=== PATIENT | female | born 1960 | race Caucasian/White ===

== ENCOUNTER → 2017-04-06 07:30 | Outpatient (CLI) | payer MEDICARE, SELFPAY ==
[2017-04-06 07:37] VITALS: BP 150/86; PULSE 73; RESP 18; TEMP 36.8; O2SAT 98; BMI 27.2
--- NOTE | 2017-04-06 10:15 | NURSING ---
DOSE 1 OF 2 OF MAG SULFATE INFUSED, TOLERATING WELL, PT LEAVING UNIT TO EAT LUNCH, WILL RETURN AT NOON FOR 2ND DOSE
[2017-04-06 11:49] VITALS: BP 143/72; PULSE 82; RESP 18; TEMP 36.5; O2SAT 97
== END ==
PROVIDERS: Family Provider Internal Medicine; PCP Internal Medicine; Visit Provider Internal Medicine
DX: E87.8 Other disorders of electrolyte and fluid balance, not elsewhere classified (principal); E11.9 Type 2 diabetes mellitus without complications; K21.9 Gastro-esophageal reflux disease without esophagitis; F41.8 Other specified anxiety disorders
CPT/HCPCS: 96365 ×2; 96366 ×2; J7050; A4216

== ENCOUNTER → 2017-04-08 12:24 | Outpatient (CLI) | payer MEDICARE, SELFPAY ==
[2017-04-08 16:40] LABS: Magnesium 2.1 mg/dL (1.6-2.6)
== END ==
PROVIDERS: Family Provider Internal Medicine; PCP Internal Medicine; Visit Provider Internal Medicine
DX: E87.8 Other disorders of electrolyte and fluid balance, not elsewhere classified (principal); E11.9 Type 2 diabetes mellitus without complications; K21.9 Gastro-esophageal reflux disease without esophagitis; F41.8 Other specified anxiety disorders
CPT/HCPCS: 36415; 83735

== ENCOUNTER → 2017-04-21 14:36 | Outpatient (CLI) | payer MEDICARE, SELFPAY ==
[2017-04-21 14:45] LABS: Bacteria 0 SEEN /hpf (None Seen); Mucous, Urine 0 SEEN /hpf (<or=2+); Red Blood Cells-Urine 0 SEEN /hpf (0-5)
[2017-04-21 15:09] LABS: Hematocrit 50.1 % (37-47); Hemoglobin 16.9 g/dl (12.0-15.0); Mean Corp Hgb Conc 33.7 g/gl (32-36); Mean Corpuscular Hgb 31.5 pg (27.0-32.0); Mean Corpuscular Volume 93.5 fL (81-99); Mean Platelet Vol. 11.6 fl (6.2-12.0); Platelet Count 264 K/mm3 (150-450); RBC Distribution Width CV 12.9 % (11.6-14.6); RBC Distribution Width SD 44.1 fl (35.1-43.9); Red Blood Count 5.36 M/mm3 (4.2-5.4); White Blood Count 14.2 K/mm3 (4.4-11.0)
[2017-04-21 15:10] LABS: Scan Indicated on CBC? Y/N NO
[2017-04-21 15:19] LABS: Color, Urine Yellow (Yellow); Glucose, Dipstick Normal (Normal); Ketone-Dipstick Negative (Negative); Leukocyte Esterase-Dipstick 25 /ul (Negative); Nitrite-Dipstick Negative (Negative); Occult Blood-Urine Negative /ul (Negative); Protein-Dipstick Negative (Negative); Specific Gravity, Urine 1.015 (1.002-1.030); Urine Bilirubin Dipstick Negative (Negative); Urine Clarity Sl. Cloudy (Clear); Urine Urobilinogen Normal (Normal)
[2017-04-21 15:25] LABS: International Normalized Ratio 1.1; Prothrombin Time (Protime)PT. 13.8 SECONDS (11.7-14.9)
[2017-04-21 15:33] LABS: Anion Gap 7 (5-15); BUN 22 mg/dL (7-18); BUN/Creat Ratio 21.2 RATIO (10-20); Calcium,Total 9.2 mg/dL (8.5-10.1); Chloride 102 mmol/L (98-107); Creatinine, Serum 1.04 mg/dL (0.55-1.02); EST Glomerular Filtration Rate 58 mL/min (>60); Est Glom Filt Rate - Afr Amer 71 mL/min (>60); Glucose 120 mg/dL (74-106); Potassium 4.9 mmol/L (3.5-5.1); Sodium Level 135 mmol/L (136-145)
[2017-04-21 16:31] LABS: Squamous Epithelial Cells - UA 10-25 SEEN /hpf (5-10); White Blood Cells 0-5 SEEN /hpf (0-5)
[2017-04-21 21:43] LABS: Magnesium 1.7 mg/dL (1.6-2.6)
== END ==
PROVIDERS: Internal Medicine Cardiovascular Disease; Family Provider Internal Medicine; PCP Internal Medicine; Visit Provider Internal Medicine
DX: I50.20 Unspecified systolic (congestive) heart failure (principal); Z95.810 Presence of automatic (implantable) cardiac defibrillator; I42.8 Other cardiomyopathies
CPT/HCPCS: 36415; 80048; 81001; 83735; 85027; 85610

== ENCOUNTER → 2017-04-23 09:18 | Day surgery (SDC) | payer MEDICARE, SELFPAY ==
--- NOTE | 2017-04-21 15:55 | RAD_ITS ---
STUDY: X-RAY CHEST REASON FOR EXAM: Female, 56 years old. Pacemaker generator change. TECHNIQUE: Frontal and lateral views of the chest. COMPARISON: 09/30/2016. FINDINGS: The lungs are clear and expanded. There is no demonstrated pleural abnormality. Normal size heart. Pacemaker leads terminate in the right atrium, right ventricle and coronary sinus. Normal mediastinum and lele. Normal visualized pulmonary arteries. Normal visualized aortic arch and descending thoracic aorta. Normal visualized thoracic spine. Normal visualized ribs, clavicles, and shoulders. There is no demonstrated abnormality of the visualized soft tissue structures of the upper abdomen. RAD/Chest PA and Lateral IMPRESSION: No evidence for acute chest disease. Electronically Signed: Tyron Tena MD at 23:46 EST , Service support ,
[2017-04-22 13:19] VITALS: BMI 26.8
--- NOTE | 2017-04-23 12:31 | OP.PCM_ITS ---
Operative Report Date of Procedure: 04/23/17 Preoperative diagnosis is device at end of life for normal battery depletion. Postoperative diagnosis same as above. After informed consent and IV antibiotics the patient was brought to the [facility] and the skin over the device was prepped and draped in the usual sterile manner. Intermittent boluses of Versed, fentanyl and propofol were used for sedation and analgesia as well as 1% subcutaneous lidocaine. An incision was made over the pre-existing device. Using blunt and Bovie dissection the pocket was opened and the device was removed. Careful attention was paid not to injure the pre-existing leads. The leads were removed from the device header and they were interrogated. There is normal lead function. Hemostasis was obtained. The pocket was flushed with antibiotic solution. The sponge and needle count were correct. The new device was brought to the field. The leads were placed in the appropriate position in the header and secured by the set screw. The leads and the device were then placed in the pocket. The device is a BiV AV ICD with a unipolar LV lead. The pocket was closed with a deep layer of running 2-0 Vicryl, a superficial layer of running 4-0 Vicryl, skin with Steri-Strips which were covered with a rolled 4 x 4 and Tegaderm. Patient left the room with the device programmed to proper parameters and there were no complications. All lead parameters were tested and found to be functionally normal. Lead and device serial and model numbers are available in the chart documents provided by the device company sales representative womens health procedure summary.
== END ==
PROVIDERS: Family Provider Internal Medicine; PCP Internal Medicine; Visit Provider Internal Medicine Cardiovascular Disease
DX: Z45.02 Encounter for adjustment and management of automatic implantable cardiac defibrillator (principal); I42.0 Dilated cardiomyopathy; I11.0 Hypertensive heart disease with heart failure; I50.20 Unspecified systolic (congestive) heart failure; E11.9 Type 2 diabetes mellitus without complications; R53.83 Other fatigue; J44.9 Chronic obstructive pulmonary disease, unspecified; K21.9 Gastro-esophageal reflux disease without esophagitis; F17.201 Nicotine dependence, unspecified, in remission; Z85.89 Personal history of malignant neoplasm of other organs and systems; Z82.49 Family history of ischemic heart disease and other diseases of the circulatory system; Z00.6 Encounter for examination for normal comparison and control in clinical research program
CPT/HCPCS: 33264; 71046; 93641; 99152; 99153; J7040; J7050

== ENCOUNTER → 2017-06-12 11:47 | Outpatient (CLI) | payer MEDICARE, SELFPAY ==
[2017-06-12 12:37] LABS: Anion Gap 5 (5-15); BUN 24 mg/dL (7-18); BUN/Creat Ratio 20.5 RATIO (10-20); Calcium,Total 8.9 mg/dL (8.5-10.1); Chloride 104 mmol/L (98-107); Creatinine, Serum 1.17 mg/dL (0.55-1.02); EST Glomerular Filtration Rate 51 mL/min (>60); Est Glom Filt Rate - Afr Amer 62 mL/min (>60); Glucose 111 mg/dL (74-106); Magnesium 1.9 mg/dL (1.6-2.6); Potassium 4.2 mmol/L (3.5-5.1); Sodium Level 140 mmol/L (136-145)
== END ==
PROVIDERS: Family Provider Internal Medicine; PCP Internal Medicine; Visit Provider Internal Medicine
DX: E87.8 Other disorders of electrolyte and fluid balance, not elsewhere classified (principal)
CPT/HCPCS: 36415; 80048; 83735

== ENCOUNTER → 2017-07-17 12:16 | Outpatient (CLI) | payer MEDICARE, SELFPAY ==
[2017-07-17 13:24] LABS: ALB/GLOB Ratio 0.8 RATIO (0.9-2.4); AST(SGOT) 64 U/L (15-37); Alanine Aminotransfer ALT/SGPT 62 U/L (13-56); Albumin, Serum 3.4 g/dL (3.2-5.0); Alkaline Phosphatase 167 U/L (45-117); Anion Gap 8 (5-15); BUN 12 mg/dL (7-18); BUN/Creat Ratio 13.2 RATIO (10-20); Calcium,Total 6.9 mg/dL (8.5-10.1); Chloride 102 mmol/L (98-107); Creatinine, Serum 0.91 mg/dL (0.55-1.02); EST Glomerular Filtration Rate 68 mL/min (>60); Est Glom Filt Rate - Afr Amer 82 mL/min (>60); Globulin 4.2 g/dL (2.2-4.2); Glucose 101 mg/dL (74-106); Magnesium 0.7 mg/dL (1.6-2.6); Protein, Total 7.6 g/dL (6.4-8.2); Sodium Level 140 mmol/L (136-145)
== END ==
PROVIDERS: Family Provider Internal Medicine; PCP Internal Medicine; Visit Provider Internal Medicine
DX: E87.8 Other disorders of electrolyte and fluid balance, not elsewhere classified (principal)
CPT/HCPCS: 36415; 80053; 83735

== ENCOUNTER → 2017-07-21 07:20 | Outpatient (CLI) | payer MEDICARE, SELFPAY ==
[2017-07-21 07:42] VITALS: BP 130/76; PULSE 70; RESP 18; TEMP 36.6; O2SAT 99; BMI 26.8
[2017-07-21] MEDS: Magnesium Sulfate 2 GM IV IV ×2 (08:15→14:10)
[2017-07-21 11:01] VITALS: BP 108/70; PULSE 57; RESP 16; O2SAT 97
== END ==
PROVIDERS: Family Provider Internal Medicine; PCP Internal Medicine; Visit Provider Internal Medicine
DX: E87.8 Other disorders of electrolyte and fluid balance, not elsewhere classified (principal); E11.9 Type 2 diabetes mellitus without complications; K21.9 Gastro-esophageal reflux disease without esophagitis; F41.8 Other specified anxiety disorders
CPT/HCPCS: 96365 ×2; 96366 ×2; J7050; A4216

== ENCOUNTER → 2017-07-22 10:48 | Outpatient (CLI) | payer MEDICARE, SELFPAY ==
[2017-07-22 12:02] LABS: Magnesium 2.4 mg/dL (1.6-2.6)
== END ==
PROVIDERS: Family Provider Internal Medicine; PCP Internal Medicine; Visit Provider Internal Medicine
DX: E87.8 Other disorders of electrolyte and fluid balance, not elsewhere classified (principal); E11.9 Type 2 diabetes mellitus without complications; K21.9 Gastro-esophageal reflux disease without esophagitis; F41.8 Other specified anxiety disorders
CPT/HCPCS: 36415; 83735

== ENCOUNTER → 2017-07-29 11:46 | Outpatient (CLI) | payer MEDICARE, SELFPAY ==
[2017-07-29 13:28] LABS: Creatinine, Urine (random) < 13.00 mg/dL (NO RANGE EST.)
[2017-07-29 13:35] LABS: Magnesium 1.8 mg/dL (1.6-2.6)
[2017-07-29 14:26] LABS: Osmolality, Serum 289 mOsm/KG (275-295); Osmolality, Urine 352 mOsm/KG
== END ==
PROVIDERS: Family Provider Internal Medicine; PCP Internal Medicine; Visit Provider Internal Medicine Nephrology
DX: E83.42 Hypomagnesemia (principal)
CPT/HCPCS: 36415; 82570; 83735; 83930; 83935

== ENCOUNTER → 2017-09-11 13:15 | Outpatient (CLI) | payer MEDICARE, SELFPAY ==
[2017-09-11 14:19] LABS: Magnesium 0.9 mg/dL (1.6-2.6)
== END ==
PROVIDERS: Family Provider Internal Medicine; PCP Internal Medicine; Visit Provider Nurse Practitioner Family
DX: E87.8 Other disorders of electrolyte and fluid balance, not elsewhere classified (principal)
CPT/HCPCS: 36415; 83735

== ENCOUNTER → 2017-09-15 07:24 | Outpatient (CLI) | payer MEDICARE, SELFPAY ==
[2017-09-15 07:46] VITALS: BP 147/79; PULSE 66; RESP 16; TEMP 36; O2SAT 100; BMI 25.3
[2017-09-15 13:39] VITALS: BP 123/66; PULSE 64; RESP 18; O2SAT 98
== END ==
PROVIDERS: Family Provider Internal Medicine; PCP Internal Medicine; Visit Provider Internal Medicine
DX: E87.8 Other disorders of electrolyte and fluid balance, not elsewhere classified (principal); E11.9 Type 2 diabetes mellitus without complications; K21.9 Gastro-esophageal reflux disease without esophagitis; F41.8 Other specified anxiety disorders
CPT/HCPCS: 96365 ×2; 96366 ×2; J7050; A4216; J3475

== ENCOUNTER → 2017-09-16 09:39 | Outpatient (CLI) | payer MEDICARE, SELFPAY ==
[2017-09-16 10:06] LABS: Magnesium 2.5 mg/dL (1.6-2.6)
== END ==
PROVIDERS: Family Provider Internal Medicine; PCP Internal Medicine; Visit Provider Internal Medicine
DX: E87.8 Other disorders of electrolyte and fluid balance, not elsewhere classified (principal); E11.9 Type 2 diabetes mellitus without complications; K21.9 Gastro-esophageal reflux disease without esophagitis; F41.8 Other specified anxiety disorders
CPT/HCPCS: 36415; 83735

== ENCOUNTER → 2017-09-18 11:09 | Outpatient (CLI) | payer MEDICARE, SELFPAY ==
[2017-09-18 12:51] LABS: Vitamin D,25 Hydroxy 13.1 ng/mL (29.95-100.01)
[2017-09-22 07:55] LABS: Vitamin D 1,25-Dihydroxy 46.5 pg/mL (19.9-79.3)
== END ==
PROVIDERS: Family Provider Internal Medicine; PCP Internal Medicine; Visit Provider Physician Assistant Medical
DX: E87.8 Other disorders of electrolyte and fluid balance, not elsewhere classified (principal); E83.42 Hypomagnesemia
CPT/HCPCS: 36415; 82306; 82652

== ENCOUNTER → 2017-10-20 09:01 | Outpatient (CLI) | payer MEDICARE, SELFPAY ==
[2017-10-20 10:34] LABS: Anion Gap 11 (5-15); BUN 15 mg/dL (7-18); BUN/Creat Ratio 14.6 RATIO (10-20); Calcium,Total 9.6 mg/dL (8.5-10.1); Chloride 98 mmol/L (98-107); Creatinine, Serum 1.03 mg/dL (0.55-1.02); EST Glomerular Filtration Rate 59 mL/min (>60); Est Glom Filt Rate - Afr Amer 71 mL/min (>60); Glucose 118 mg/dL (74-106); Potassium 4.4 mmol/L (3.5-5.1); Sodium Level 138 mmol/L (136-145)
== END ==
PROVIDERS: Family Provider Internal Medicine; PCP Internal Medicine; Visit Provider Physician Assistant Medical
DX: E87.8 Other disorders of electrolyte and fluid balance, not elsewhere classified (principal); I42.8 Other cardiomyopathies; I10 Essential (primary) hypertension
CPT/HCPCS: 36415; 80048

== ENCOUNTER → 2017-12-09 12:16 | Outpatient (CLI) | payer MEDICARE, SELFPAY ==
[2017-12-09 13:09] LABS: Anion Gap 5 (5-15); BUN 13 mg/dL (7-18); BUN/Creat Ratio 12.3 RATIO (10-20); Calcium,Total 9.5 mg/dL (8.5-10.1); Chloride 98 mmol/L (98-107); Creatinine, Serum 1.06 mg/dL (0.55-1.02); EST Glomerular Filtration Rate 57 mL/min (>60); Est Glom Filt Rate - Afr Amer 69 mL/min (>60); Glucose 122 mg/dL (74-106); Magnesium 1.5 mg/dL (1.6-2.6); Potassium 4.3 mmol/L (3.5-5.1); Sodium Level 134 mmol/L (136-145)
== END ==
PROVIDERS: Family Provider Internal Medicine; PCP Internal Medicine; Referring Provider Internal Medicine; Visit Provider Internal Medicine
DX: E83.42 Hypomagnesemia (principal)
CPT/HCPCS: 36415; 80048; 83735

== ENCOUNTER → 2018-01-07 12:05 | Outpatient (CLI) | payer MEDICARE, SELFPAY ==
[2018-01-07 13:13] LABS: Anion Gap 4 (5-15); BUN 16 mg/dL (7-18); BUN/Creat Ratio 15.5 RATIO (10-20); Calcium,Total 8.9 mg/dL (8.5-10.1); Chloride 101 mmol/L (98-107); Creatinine, Serum 1.03 mg/dL (0.55-1.02); EST Glomerular Filtration Rate 59 mL/min (>60); Est Glom Filt Rate - Afr Amer 71 mL/min (>60); Glucose 116 mg/dL (74-106); Magnesium 1.7 mg/dL (1.6-2.6); Potassium 4.5 mmol/L (3.5-5.1); Sodium Level 134 mmol/L (136-145)
== END ==
PROVIDERS: Family Provider Internal Medicine; PCP Internal Medicine; Referring Provider Internal Medicine Nephrology; Visit Provider Internal Medicine Nephrology
DX: E83.42 Hypomagnesemia (principal)
CPT/HCPCS: 36415; 80048; 82570; 83735

== ENCOUNTER → 2018-02-08 11:46 | Outpatient (CLI) | payer MEDICARE, SELFPAY ==
[2017-11-24 14:22] VITALS: BMI 25.2
[2018-02-08 12:53] LABS: Magnesium 1.8 mg/dL (1.6-2.6)
--- OUTSIDE RECORDS SUMMARY | 2018-04-03 18:07 | XMS RPT_ITS ---
:1960 Author Organization OHIP Support Name Relationship Address Phone D Unavailable Unavailable Unavailable GREG ADAM Unavailable [address] + [place] [address] D Unavailable Unavailable Unavailable LYN GARZAT Unavailable [address] + [place] [address] D Unavailable Unavailable Unavailable LYN GARZAT Unavailable [address] + [place] [address] D Unavailable Unavailable Unavailable ADAM GARZA Unavailable [address] + [place] [address] D Unavailable Unavailable Unavailable LYN GARZAT Unavailable [address] + [place] [address] D Unavailable Unavailable Unavailable LYN GARZAT Unavailable [address] + [place] [address] D Unavailable Unavailable Unavailable LYN GARZAT Unavailable [address] + [place] [address] D Unavailable Unavailable Unavailable LYN GARZAT Unavailable [address] + [place] [address] D Unavailable Unavailable Unavailable LYN GARZAT Unavailable [address] + [place] [address] D Unavailable Unavailable Unavailable LYN GARZAT Unavailable [address] + [place] [address] D Unavailable Unavailable Unavailable LYN GARZAT Unavailable [address] + [place] [address] D Unavailable Unavailable Unavailable LYN GARZAT Unavailable [address] + [place] [address] D Unavailable Unavailable Unavailable ADAM GARZA Unavailable [address] + [place] [address] D Unavailable Unavailable Unavailable LYN GARZAT Unavailable [address] + [place] [address] D Unavailable Unavailable Unavailable LYN GRAZAT Unavailable [address] + [place] [address] D Unavailable Unavailable Unavailable LYN GARZAT Unavailable [address] + [place] [address] D Unavailable Unavailable Unavailable LYN GARZAT Unavailable [address] + [place] [address] D Unavailable Unavailable Unavailable LYN GARZAT Unavailable [address] + [place] [address] D Unavailable Unavailable Unavailable LYN GARZAT Unavailable [address] + [place] [address] D Unavailable Unavailable Unavailable ADAM GARZA Unavailable [address] + [place] [address] D Unavailable Unavailable Unavailable ADAM GARZA Unavailable [address] + [place] [address] D Unavailable Unavailable Unavailable ADAM GARZA Unavailable [address] + [place] [address] D Unavailable Unavailable Unavailable ADAM GARZA Unavailable [address] + [place] [address] D Unavailable Unavailable Unavailable ADAM GARZA Unavailable [address] + [place] [address] D Unavailable Unavailable Unavailable ADAM GARZA Unavailable [address] + [place] [address] D Unavailable Unavailable Unavailable LYN GARZAT Unavailable [address] + [place] [address] D Unavailable Unavailable Unavailable ADAM GARZA Unavailable [address] + [place] [address] D Unavailable Unavailable Unavailable ADAM GARZA Unavailable [address] + [place] [address] D Unavailable Unavailable Unavailable ADAM GARZA Unavailable [address] + [place] [address] D Unavailable Unavailable Unavailable ADAM GARZA Unavailable [address] + [place] [address] D Unavailable Unavailable Unavailable ADAM GARZA Unavailable [address] + [place] [address] D Unavailable Unavailable Unavailable LYN GARZAT Unavailable [address] + [place] [address] D Unavailable Unavailable Unavailable ADAM GARZA Unavailable [address] + [place] [address] D Unavailable Unavailable Unavailable ADAM GARZA Unavailable [address] + [place] [address] D Unavailable Unavailable Unavailable ADAM GARZA Unavailable [address] + [place] [address] D Unavailable Unavailable Unavailable ADAM GARZA Unavailable [address] + [place] [address] D Unavailable Unavailable Unavailable ADAM GARZA Unavailable [address] + [place] [address] D Unavailable Unavailable Unavailable ADAM GARZA Unavailable [address] + [place] [address] D Unavailable Unavailable Unavailable ADAM GARZA Unavailable [address] + [place] [address] D Unavailable Unavailable Unavailable ADAM GARZA Unavailable [address] + [place] [address] D Unavailable Unavailable Unavailable ADAM GARZA Unavailable [address] + [place] [address] D Unavailable Unavailable Unavailable ADAM GARZA Unavailable [address] + [place] [address] D Unavailable Unavailable Unavailable GARZA ADAM Unavailable [address] + [place] [address] D Unavailable Unavailable Unavailable GARZA, ADAM Unavailable [address] + [place] [address] D Unavailable Unavailable Unavailable GARZA ADAM Unavailable [address] + [place] [address] D Unavailable Unavailable Unavailable GARZA, ADAM Unavailable NA + [place], [place] Care Team Providers Name Role Phone NUHA QUESADA () Attending Unavailable Oleghe, Efewongbe Attending Unavailable Malys, Sendy Referring Unavailable Malys, Sendy Primary Care Unavailable Oleghe, Efewongbe Attending Unavailable Oleghe, Efewongbe Referring Unavailable Oleghe, Efewongbe Primary Care Unavailable Oleghe, Efewongbe Attending Unavailable Oleghe, Efewongbe Referring Unavailable Oleghe, Efewongbe Primary Care Unavailable Aliyah Aguilar Attending Unavailable Malys, Sendy Referring Unavailable Oleghe, Efewongbe Primary Care Unavailable Nurse, Standard Attending Unavailable Malys, Sendy Referring Unavailable Oleghe, Efewongbe Primary Care Unavailable Oleghe, Efewongbe Attending Unavailable Oleghe, Efewongbe Primary Care Unavailable Oleghe, Efewongbe Referring Unavailable Oleghe, Efewongbe Attending Unavailable Oleghe, Efewongbe Primary Care Unavailable Benedicto, [place] Attending Unavailable Benedicto, [place] Referring Unavailable Oleghe, Efewongbe Primary Care Unavailable Leatha Branch Attending Unavailable Oleghe, Efewongbe Attending Unavailable Oleghe, Efewongbe Referring Unavailable Oleghe, Efewongbe Primary Care Unavailable Rudolph [place] Attending Unavailable Oleghe, Efewongbe Referring Unavailable Oleghe, Efewongbe Primary Care Unavailable Aliyah Aguilar Attending Unavailable Oleghe, Efewongbe Referring Unavailable Oleghe, Efewongbe Primary Care Unavailable Nakul Abdalla Attending Unavailable Benedicto, [place] Referring Unavailable Oleghe, Efewongbe Primary Care Unavailable Benedicto, [place] Consulting Unavailable Aliyah Aguilar Attending Unavailable Aliyah Aguilar Attending Unavailable Oleghe, Efewongbe Referring Unavailable Kristen Robles Attending Unavailable Aliyah Aguilar Attending Unavailable Oleghe, Efewongbe Referring Unavailable Oleghe, Efewongbe Primary Care Unavailable Oleghe, Efewongbe Attending Unavailable Oleghe, Efewongbe Referring Unavailable Stewart Diane Attending Unavailable Oleghe, Efewongbe Referring Unavailable Oleghe, Efewongbe Primary Care Unavailable Oleghe, Efewongbe Attending Unavailable Oleghe, Efewongbe Referring Unavailable Oleghe, Efewongbe Attending Unavailable Oleghe, Efewongbe Referring Unavailable Oleghe, Efewongbe Primary Care Unavailable Oleghe, Efewongbe Attending Unavailable Oleghe, Efewongbe Referring Unavailable Oleghe, Efewongbe Primary Care Unavailable Oleghe, Efewongbe Attending Unavailable Oleghe, Efewongbe Referring Unavailable Oleghe, Efewongbe Primary Care Unavailable Soledad Castillo Attending Unavailable Marcelino Brown Attending Unavailable Oleghe, Efewongbe Referring Unavailable Oleghe, Efewongbe Attending Unavailable Oleghe, Efewongbe Referring Unavailable Oleghe, Efewongbe Primary Care Unavailable Oleghe, Efewongbe Attending Unavailable Oleghe, Efewongbe Referring Unavailable Oleghe, Efewongbe Primary Care Unavailable Oleghe, Efewongbe Attending Unavailable Oleghe, Efewongbe Referring Unavailable Oleghe, Efewongbe Primary Care Unavailable Valeria Cruz Attending Unavailable Oleghe, Efewongbe Primary Care Unavailable Oleghe, Efewongbe Attending Unavailable Oleghe, Efewongbe Referring Unavailable Rudolph [place] Attending Unavailable Aliyah Aguilar Attending Unavailable Oleghe, Efewongbe Referring Unavailable Oleghe, Efewongbe Primary Care Unavailable Ignacio Zacarias HOMOGENIZER OPERATOR-C Attending Unavailable Ignacio Zacarias HOMOGENIZER OPERATOR-C Referring Unavailable Oleghe, Efewongbe Primary Care Unavailable Oleghe, Efewongbe Attending Unavailable Oleghe, Efewongbe Referring Unavailable Oleghe, Efewongbe Primary Care Unavailable Oleghe, Efewongbe Attending Unavailable Oleghe, Efewongbe Primary Care Unavailable Lawanda Robless Attending Unavailable Nilda Pino Attending Unavailable Nilda Pino Referring Unavailable Oleghe, Efewongbe Primary Care Unavailable Oleghe, Efewongbe Attending Unavailable Oleghe, Efewongbe Referring Unavailable Nilda Pino Attending Unavailable Nilda Pino Referring Unavailable Oleghe, Efewongbe Primary Care Unavailable Soledad Castillo Attending Unavailable Aliayh Aguilar Attending Unavailable Oleghe, Efewongbe Referring Unavailable Oleghe, Efewongbe Primary Care Unavailable Rudolph [place] Attending Unavailable Oleghe, Efewongbe Referring Unavailable Oleghe, Efewongbe Primary Care Unavailable Oleghe, Efewongbe Attending Unavailable Oleghe, Efewongbe Referring Unavailable Oleghe, Efewongbe Primary Care Unavailable Oleghe, Efewongbe Attending Unavailable Oleghe, Efewongbe Referring Unavailable Oleghe, Efewongbe Primary Care Unavailable Valeria Cruz Attending Unavailable Oleghe, Efewongbe Primary Care Unavailable Valeria Cruz Referring Unavailable Oleghe, Efewongbe Consulting Unavailable Oleghe, Efewongbe Attending Unavailable Oleghe, Efewongbe Referring Unavailable Oleghe, Efewongbe Primary Care Unavailable PROBLEMS PROBLEMS DATE TYPE CONDITION / CODE ATTENDING STATUS SOURCE 01/18/2018 Unknown E83.42 - Valeria Cruz Active [facility] Hypomagnesemia / Community E83.42(ICD-10) Hospital Repository 12/08/2017 Active Unknown / Ayden QUESADA [place] UN(Unknown) NUHA [facility] GAGE) [place] Repository 11/24/2017 Unknown E87.8 - Other Oleghe, Active [place] disorders of [facility] electrolyte and fluid Hospital balance, not Repository elsewhere classified / E87.8(ICD-10) 04/29/2017 Unknown Z95.810 - Presence of Jeff, Aliyah Active [facility] automatic Community (implantable) cardiac Hospital defibrillator / Repository Z95.810(ICD-10) 04/29/2017 Unknown R42 - Dizziness and Jeff, Aliyah Active [place] giddiness / Community R42(ICD-10) Hospital Repository 04/29/2017 Unknown R06.02 - Shortness of Jeff, Aliyah Active [facility] breath / Community R06.02(ICD-10) Hospital Repository 04/29/2017 Unknown I42.0 - Dilated Aliyah Aguilar Active [place] cardiomyopathy / Community I42.0(ICD-10) Hospital Repository 04/23/2017 Unknown I50.20 - Unspecified Nakul Abdalla Active [place] systolic (congestive) [facility] heart failure / Hospital I50.20(ICD-10) Repository 04/23/2017 Unknown I42.8 - Other Mr, Nakul Active [facility] cardiomyopathies / Community I42.8(ICD-10) Hospital Repository 04/21/2017 Unknown I10 - Essential Rudolph [place] Active [place] (primary) [facility] hypertension / Hospital I10(ICD-10) Repository 03/26/2017 Unknown F41.8 - Other Oleghe, Active [place] specified anxiety [facility] disorders / Hospital F41.8(ICD-10) Repository 03/26/2017 Unknown E11.9 - Type 2 Oleghe, Active [facility] diabetes mellitus [facility] without complications Hospital / E11.9(ICD-10) Repository PROCEDURES PROCEDURES No Procedure Records FoundRESULTS RESULTS MAGNESIUM Collected: 02/08/2018 Status: F Source: [place] 12:04 PM [facility] REPOSITORY Order Comment: Comments: Monthly standing order Comments: Monthly standing order TYPE CODE TESTS RESULT OUT OF RANGE REFERENCE UNITS LAB L501.5200 1.6-2.6 mg/dL Normal MG 1.8 Performed By: #### L501.5200 #### [facility] [address] [place], [address] CREATININE, URINE Collected: 01/07/2018 Status: F Source: [place] (RANDOM) 12:12 PM [facility] REPOSITORY Order Comment: PLEASE COPY DR Wesley EVANS ON MAGNESIUM BLOOD. TYPE CODE TESTS RESULT OUT OF RANGE REFERENCE UNITS LAB L501.1200 NO RANGE EST. mg/dL Normal UR CREAT 69.20 Performed By: #### L501.1200 #### [facility] [address] [place], [address] BASIC METABOLIC Collected: 01/07/2018 Status: F Source: [place] PROFILE (BMP) 12:12 PM [facility] REPOSITORY Order Comment: PLEASE COPY DR Wesley EVANS ON MAGNESIUM BLOOD. Comments: magnesium random urine [id number] urine ref TYPE CODE TESTS RESULT OUT OF RANGE REFERENCE UNITS LAB L501.0100 74-106 mg/dL High GLU 116 Result Comment: Fasting Glucose result from 100 to 125 mg/dL suggests IMPAIRED HOMEOSTASIS per A.D.A. criteria. Please note revised GLUCOSE reference range effective 2017. LAB L501.1000 7-18 mg/dL Normal BUN 16 LAB L501.1100 0.55-1.02 mg/dL High CREAT,SERUM 1.03 Result Comment: The validity of the calculated GFR AND GFRAA in patients over 70 years has not been determined. Clinical correlation is essential. LAB L501.1110 >60 mL/min Low EST GFR 59 Result Comment: Non- GFR Calc LAB L501.1115 >60 mL/min Normal EST GFR - AA 71 Result Comment: GFR Calc LAB L501.1300 10-20 RATIO Normal BUN/CRE 15.5 LAB L501.2200 8.5-10.1 mg/dL CA Normal 8.9 LAB L501.5300 136-145 mmol/L Low NA 134 LAB L501.5600 3.5-5.1 mmol/L K Normal 4.5 LAB L501.5900 98-107 mmol/L CL Normal 101 LAB L501.6100 21.0-32.0 mmol/L Normal CO2 29.0 LAB L501.6200 5-15 Low GAP 4 Performed By: #### L500.2500, L501.5200 #### [facility] [address] [place], [place], [id number] MAGNESIUM Collected: 01/07/2018 Status: F Source: [place] 12:12 PM [facility] REPOSITORY Order Comment: PLEASE COPY DR Wesley EVANS ON MAGNESIUM BLOOD. Comments: magnesium random urine [id number] urine ref TYPE CODE TESTS RESULT OUT OF RANGE REFERENCE UNITS LAB L501.5200 1.6-2.6 mg/dL Normal MG 1.7 Performed By: #### L500.2500, L501.5200 #### [facility] [address] [place], [address] MISCELLANEOUS LAB Collected: 01/07/2018 Status: F Source: [place] PROCEDURE 12:12 PM [facility] REPOSITORY Order Comment: PLEASE COPY DR Wesley EVANS ON MAGNESIUM BLOOD. Comments: magnesium random urine [id number] urine ref Test(s) Ordered: magnesium random urine [id number] urine ref TYPE CODE TESTS RESULT OUT OF RANGE REFERENCE UNITS LAB L801.1541 Normal [facility] TEST Result Comment: TEST RESULT UNITS REFERENCE INTERVAL Magnesium, U <1.4 mg/dL Not Estab. TESTING PERFORMED AT [facility]. ORIGINAL REPORT ON FILE IN LAB CONTAINS ADDITIONAL TEST SITE INFORMATION. Performed By: #### L801.1541 #### [facility] [address] [place], [address] BASIC METABOLIC Collected: 12/09/2017 Status: F Source: [place] PROFILE ([facility]) 12:31 PM [facility] REPOSITORY TYPE CODE TESTS RESULT OUT OF RANGE REFERENCE UNITS LAB L501.0100 74-106 mg/dL High GLU 122 Result Comment: Fasting Glucose result from 100 to 125 mg/dL suggests IMPAIRED HOMEOSTASIS per A.D.A. criteria. Please note revised GLUCOSE reference range effective 2017. LAB L501.1000 7-18 mg/dL Normal BUN 13 LAB L501.1100 0.55-1.02 mg/dL High CREAT,SERUM 1.06 Result Comment: The validity of the calculated GFR AND GFRAA in patients over 70 years has not been determined. Clinical correlation is essential. LAB L501.1110 >60 mL/min Low EST GFR 57 Result Comment: Non- GFR Calc LAB L501.1115 >60 mL/min Normal EST GFR - AA 69 Result Comment: GFR Calc LAB L501.1300 10-20 RATIO Normal BUN/CRE 12.3 LAB L501.2200 8.5-10.1 mg/dL CA Normal 9.5 LAB L501.5300 136-145 mmol/L Low NA 134 LAB L501.5600 3.5-5.1 mmol/L K Normal 4.3 LAB L501.5900 98-107 mmol/L CL Normal 98 LAB L501.6100 21.0-32.0 mmol/L Normal CO2 31.0 LAB L501.6200 5-15 Normal GAP 5 Performed By: #### L500.2500, L501.5200 #### [facility] [address] [place], [address] MAGNESIUM Collected: 12/09/2017 Status: F Source: [place] 12:31 PM [facility] REPOSITORY TYPE CODE TESTS RESULT OUT OF RANGE REFERENCE UNITS LAB L501.5200 1.6-2.6 mg/dL Low MG 1.5 Performed By: #### L500.2500, L501.5200 #### [facility] [address] [place], [address] CNOV Observed: 12/08/2017 Status: COMPLETED Source: [place] 2:00 PM [facility] REPOSITORY Office Visit (FAMPWS) LISA GARZA ([id number]) 1960 F Date Time Provider Department 12/08/17 2:00 PM NUHA QUESADA) FAMPWS During your visit today, we recorded the following information about you: Pulse Respiration Blood pressure Weight 80/minute 18/minute 122/68 72.1 kg Nuha Quesada MD 12/09/2017 4:30 PM Signed Chief Complaint Patient presents with: Establish Care: physical HPI Lisa Garza is a 57 year old female who presents here today for establish care visit. Previously seeing Dr. Evans and last OV was about 2 weeks ago for bronchitis which she states she was given Z pack for and prednisone. Finished z pack which helped with symptoms. Did not take the prednisone because it causes her hives. Patient follows up with Dr. Diane for history of cardiomyopathy with pacemaker and defibrillator. Last OV was back Taking medications as prescribed. 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 Not sure when this was placed or why. Denies alcohol use at this time. Has history of anxiety which she is taking Ativan for on a BID basis. Last filled by Dr. Evans on 11/10 and has about 10 tablets left with her today. Not on SSRI or SNRI. States that he marine transport professionals did not want her medications changed because of her cardiomyopathy and would like this refilled terminal manager. Discussed with patient that I do not fill benzos for anxiety fpc and recommended she see psychiatrist which she states she cannot afford. States she will return to seeing Dr. Evans since he was filling this for her previously. Refusing immunizations today. Allergic to influenza vaccine. Past medical history, appointments, medications, allergies reviewed. Previous Medical History PAST MEDICAL HISTORY Diagnosis Date - Alcoholic psychosis NEC - Allergic urticaria - Anxiety disorder in conditions classified elsewhere - Cardiac defibrillator in place - Cardiomyopathy in other diseases classified elsewhere DILATED, Seeing Dr. Diane - Hyperthyroidism 03/2011 Low TSH with normal T4 and T3, repeat normal - Hypomagnesemia - Malignant neoplasm of vulva, unspecified site 1996 s/p resection x4, melanoma - Pacemaker 2008 - Tobacco use - Vitamin D deficiency Previous Surgical History PAST SURGICAL HISTORY Procedure Laterality Date - COLONOS W/REM POLYP SNARE 11/07/05 Polyp proximal sigmoid - COLONOSCOPY due every 3 years - EGD W/O BRSH SPECIMEN W/BX 11/07/05 Hiatal hernia, Gastritis - LAP CHOLECYSTECT/CHOLANGIOGRAPHY 11/12/05 - PAST SURGICAL HISTORY OF 09/19/2008 placement AICD , [facility] - PAST SURGICAL HISTORY OF dental extraction, 16 teeth removed - MA ANESTH,CARDIAC CATH W/CORON ART AND VENT 11/29/02 - MA ANESTH,REMOVAL OF VULVA 2000 DUE TO MELANOMA - REMOVAL GALLBLADDER 2005 Cholecystectomy - VAGINAL HYSTERECTOMY 04/09/2006 Hysterectomy, vaginal Family History FAMILY HISTORY Problem Relation Age of Onset - Diabetes Mother - Hypertension Father - Stroke Father - Cancer Father lymph - Skin Cancer Maternal Aunt melanoma - Hypertension Maternal Aunt Patient Allergies ALLERGIES Allergen Reactions - Bactrim [Sulfametho* Itching - Flu Shot [Other] Intolerance sick for weeks - Celebrex [Celecoxib] GI Upset - Celexa [Citalopram * Mental Status Change - Cheese (See Vegetab* Hives - Ciprofloxacin Hcl Itching After script Nov 2010 - Codeine Hives - Darvocet-N 100 [Pro* Hives - Diazepam Hives - Doxycycline Intolerance HEART RACING - Flexeril [Cyclobenz* GI Upset gi upset, bloating - Ivp/Ct Dye [Other] Hives - Meloxicam Intolerance Abdominal pain, bloating and hartburn. - Methocarbamol Rash - Nabumetone Rash - Naprosyn [Naproxen] GI Upset - Omeprazole GI Upset - Penicillins Hives - Pramipexole Intolerance - Ropinirole Rash - Seasonings [Other] - Trimox [Amoxicillin] Hives, Itching - Tylenol [Acetaminop* Hives - Vicodin Tuss [[place]* Mental Status Change - Vicodin [Hydrocodon* GI Upset - Zantac [Ranitidine * Hives Current Medications Current Outpatient Prescriptions on File Prior to Visit: LORazepam (ATIVAN) 1 mg tablet Take 1 tablet by mouth three times daily as needed for Anxiety. nystatin cream Apply a quarter size amount to the affected area 3 times a day for 2 weeks lisinopril 20 mg tablet Take 1 tablet by mouth twice daily. Estradiol (ESTRACE) 0.5 mg tablet Take 1 tablet by mouth once daily. albuterol HFA (PROAIR HFA) 90 mcg/actuation inhaler Inhale 2 Puffs as instructed every 4 hours as needed for Wheezing/Shortness of Breath. metoprolol tartrate, short acting, 50 mg tablet Take 1 tablet by mouth twice daily. furosemide 20 mg tablet Take 1 tablet by mouth once daily. cetirizine (ZYRTEC) 10 mg tablet Take 1 tablet by mouth once daily. albuterol 2.5 mg /3 mL (0.083 %) nebulizer solution Use via nebulizer. four times daily as needed No current facility-administered medications on file prior to visit. 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 Social History Main Topics Smoking status: Current Every Day Smoker Packs/day: 0.50 Years: 40.00 Types: Cigarettes Smokeless tobacco: Never Used Alcohol use: No Drug use: No Sexual activity: Not Currently Partners with: Male control/protection: Surgical Comment: Vaginal Hysterectomy 2006 Social History Narrative disability Review of Symptoms REVIEW OF SYSTEMS GENERAL: No weight loss, malaise or fevers RESPIRATORY: Negative for cough, hemoptysis, wheezing, COPD, dyspnea or shortness of breath CARDIOVASCULAR: Negative for chest pain, leg swelling, hypertension, CHF or palpitations GI: No nausea, vomiting, or diarrhea SKIN: Negative for lesions, rash, and itching EXAM: BP 122/68 (BP Site: Right Arm, BP Position: Sitting, BP Cuff Size: Regular Adult) Pulse 80 Resp 18 Wt 72.1 kg (159 lb) LMP 03/23/2006 SpO2 97% BMI 26.66 kg/m? General Appearance: Well appearing, alert, in no acute distress, well-hydrated, well nourished.. Skin: Skin color, texture, turgor normal, no suspicious rashes or lesions. Lungs: Lungs clear to auscultation. No wheezing, rhonchi, rales. Heart: RRR without murmur, gallop, or rubs. No ectopy. Abdomen: Normal abdominal exam, Abdomen soft, non-tender. Bowel sounds normal. No masses, organomegaly. Extremities: No deformities, edema, skin discoloration, clubbing or cyanosis. Good capillary refill. . Health Maintenance List ANNUAL PCP TEAM CHRONIC DISEASE VISIT due on 11/30/1979 ONE PNEUMOVAX PRIOR TO AGE 65 due on 1980 HEPATITIS C SCREENING due on 2005 FECAL OCCULT BLOOD due on 03/03/2014 MAMMOGRAM due on 09/13/2014 PAP EVERY 3 YEARS due on 08/04/2016 DIABETES SCREEN due on 05/18/2017 LIPID SCREEN due on 11/11/2017 DTAP,TDAP,TD(3 - Td) due on 12/15/2021 ASSESSMENT/PLAN: 1. Anxiety - ICD9: 300.00, ICD10: F41.9 (primary diagnosis) Patient will follow up with Dr. Evans for refills of her ativan. - LORAZEPAM 1 MG TABLET 2. Chronic obstructive pulmonary disease, unspecified COPD type (HCC) - ICD9: 496, ICD10: J44.9 Continue current regimen, follow up with PCP. 3. AICD (automatic cardioverter/defibrillator) present - ICD9: V45.02, ICD10: Z95.810 Asymptomatic. Continue current regimen. Follow up with cardiology. 4. Cardiomyopathy, unspecified type (HCC) - ICD9: 425.4, ICD10: I42.9 Asymptomatic. Continue current regimen. Follow up with cardiology. 5. Tobacco use disorder - ICD9: 305.1, ICD10: F17.200 - Cessation encouraged. - Physiologic and physical aspects of tobacco addiction as well as strategies for quitting were discussed. - Counseling was given focusing on the harmful effects of this addiction especially given the patient's medical condition(s) which will be worsened because of the chemicals in tobacco. I spent 40 minutes in the visit, with more than 50% of the total [id number] time of the visit in counseling / coordination of care. Nuha Quesada MD Referring Provider: SELF [200] Allergies As of Date: 12/08/2017 Noted Allergy Reaction BACTRIM (SULFAMETHOXAZOLE) 08/17/2010 9 - Itching flu shot [Other] 10/28/2004 5 - Intolerance Comments: sick for weeks CELEBREX (CELECOXIB) 10/28/2004 8 - GI Upset CELEXA (CITALOPRAM HYDROBROMIDE) 11/02/2007 1 - Mental Status Change CHEESE (SEE VEGETABLE GUM) 10/28/2004 4 - Hives CIPROFLOXACIN HCL 2010 9 - Itching Comments: After script Nov 2010 CODEINE 02/02/2006 4 - Hives DARVOCET-N 100 (PROPOXYPHENE N-AC*10/28/2004 4 - Hives DIAZEPAM 10/28/2004 4 - Hives DOXYCYCLINE 10/28/2004 5 - Intolerance Comments: HEART RACING FLEXERIL (CYCLOBENZAPRINE HCL) 2010 8 - GI Upset Comments: gi upset, bloating IVP/CT dye [Other] 09/11/2008 4 - Hives MELOXICAM 2010 5 - Intolerance Comments: Abdominal pain, bloating and hartburn. METHOCARBAMOL 08/10/2012 2 - Rash NABUMETONE 08/26/2012 2 - Rash NAPROSYN (NAPROXEN) 10/28/2004 8 - GI Upset OMEPRAZOLE 03/01/2013 8 - GI Upset PENICILLINS 10/28/2004 4 - Hives PRAMIPEXOLE 06/11/2012 5 - Intolerance ROPINIROLE 05/11/2012 2 - Rash seasonings [Other] 10/28/2004 TRIMOX (AMOXICILLIN) 10/28/2004 4 - Hives 9 - Itching TYLENOL (ACETAMINOPHEN) 10/28/2004 4 - Hives VICODIN TUSS (HYDROCODONE-GUAIFEN*10/28/2004 1 - Mental Status Change VICODIN (HYDROCODONE-ACETAMINOPHE*10/28/2004 8 - GI Upset ZANTAC (RANITIDINE HCL) 03/10/2013 4 - Hives Date Reviewed: 12/08/2017 Reviewed by: Heaven Roberto - Fully Assessed Reason for Visit: Establish Care [42] Cmt: physical Primary Visit Diagnosis:Anxiety [F41.9] Other Visit Diagnoses:Chronic obstructive pulmonary disease, unspecified COPD type (HCC) [J44.9] AICD (automatic cardioverter/defibrillator) present [Z95.810] Cardiomyopathy, unspecified type (HCC) [I42.9] Tobacco use disorder [F17.200] Order(s):LORazepam (ATIVAN) 1 mg tabletTake 1 tablet by mouth twice daily as needed for up to 30 days.Disp: Rfl: Prescriptions as of 12/08/2017 Sig: POTASSIUM CHLORIDE ER 20 MEQ * Take by mouth twice daily wit* MAGNESIUM OXIDE 400 MG CAPSULE Take by mouth twice daily. CALCIUM CARBONATE 600 MG CALC* Take 600 mg by mouth twice da* CHOLECALCIFEROL (VITAMIN D3) * Take by mouth once each week. LORAZEPAM 1 MG TABLET Take 1 tablet by mouth twice * LISINOPRIL 20 MG TABLET Take 1 tablet by mouth twice * ESTRADIOL 0.5 MG TABLET Take 1 tablet by mouth once d* ALBUTEROL SULFATE HFA 90 MCG/* Inhale 2 Puffs as instructed * METOPROLOL TARTRATE 50 MG TAB* Take 1 tablet by mouth twice * FUROSEMIDE 20 MG TABLET Take 1 tablet by mouth once d* CETIRIZINE 10 MG TABLET Take 1 tablet by mouth once d* ALBUTEROL SULFATE 2.5 MG/3 ML* Use via nebulizer. four time* Problem List As Of Date 12/08/2017 Noted Resolved PRIM CARDIOMYOPATHY NEC [I42.8] INVALID FOR* ESOPHAGEAL REFLUX [K21.9] INVALID FOR* PAIN ABDOMEN( Periumbilical) [R10.33] INVALID FOR*11/07/2010 CHOLELITH W CHOLECYS NEC [K80.10] INVALID FOR* HIATAL HERNIA [K44.9] INVALID FOR* POLYP COLON [D12.6] INVALID FOR* Abdominal pain, left lower quadrant [R10.32] INVALID FOR*11/07/2010 RHINITIS CHRONIC [J31.0] INVALID FOR* CHRONIC AIRWAY OBSTRUCTION NEC [J44.9] INVALID FOR* TOBACCO USE DISORDER [F17.200] INVALID FOR* CARCINOMA IN SITU VULVA [D07.1] INVALID FOR* AICD (automatic cardioverter/defibrillator) pre*INVALID FOR* More... Grave's disease INVALID FOR* Cervical lymphadenopathy [R59.0] INVALID FOR*05/14/2011 Neck pain [M54.2] INVALID FOR* Anxiety [F41.9] INVALID FOR* Glucose intolerance (impaired glucose tolerance*INVALID FOR* RLQ abdominal pain [R10.31] INVALID FOR* Symptomatic menopausal or female climacteric st*INVALID FOR* Prescriptions ordered this encounter Disp Refills Start End LORAZEPAM 1 MG TABLET 12/08/2017 01/07/2018 Class: Med Update Route: ORAL Sig: Take 1 tablet by mouth twice daily as needed for up to 30 days. Medications Discontinued During This Encounter LORazepam (ATIVAN) 1 mg tablet 60 t* 0 12/26/2013 12/08/2017 Class: Call Rx Route: ORAL Sig: Take 1 tablet by mouth three times daily as needed for Anxiety. Disc: Reason for discontinue is not on file. nystatin cream 1 Tu* 0 10/31/2013 12/08/2017 Sig: Apply a quarter size amount to the affected area 3 times a day for 2 weeks Disc: Reason for discontinue is not on file. Encounter Status:Closed by NUHA QUESADA MD on 12/09/17 PROGRESS Observed: 12/08/2017 Status: COMPLETED Source: [place] 1:59 PM [facility] REPOSITORY HNO ID: [id number] Author: Nuha Harris) [place] Service: (none) Author Type: Physician Type: Progress Notes Filed: 12/09/2017 4:30 PM Note Text: Chief Complaint Patient presents with: Establish Care: physical HPI Lisa Garza is a 57 year old female who presents here today for establish care visit. Previously seeing Dr. Evans and last OV was about 2 weeks ago for bronchitis which she states she was given Z pack for and prednisone. Finished z pack which helped with symptoms. Did not take the prednisone because it causes her hives. Patient follows up with Dr. Diane for history of cardiomyopathy with pacemaker and defibrillator. Last OV was back Taking medications as prescribed. 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 Not sure when this was placed or why. Denies alcohol use at this time. Has history of anxiety which she is taking Ativan for on a BID basis. Last filled by Dr. Evans on 11/10 and has about 10 tablets left with her today. Not on SSRI or SNRI. States that he marine transport professionals did not want her medications changed because of her cardiomyopathy and would like this refilled terminal manager. Discussed with patient that I do not fill benzos for anxiety fpc and recommended she see psychiatrist which she states she cannot afford. States she will return to seeing Dr. Evans since he was filling this for her previously. Refusing immunizations today. Allergic to influenza vaccine. Past medical history, appointments, medications, allergies reviewed. Previous Medical History PAST MEDICAL HISTORY Diagnosis Date - Alcoholic psychosis NEC - Allergic urticaria - Anxiety disorder in conditions classified elsewhere - Cardiac defibrillator in place - Cardiomyopathy in other diseases classified elsewhere DILATED, Seeing Dr. Diane - Hyperthyroidism 03/2011 Low TSH with normal T4 and T3, repeat normal - Hypomagnesemia - Malignant neoplasm of vulva, unspecified site 1996 s/p resection x4, melanoma - Pacemaker 2008 - Tobacco use - Vitamin D deficiency Previous Surgical History PAST SURGICAL HISTORY Procedure Laterality Date - COLONOS W/REM POLYP SNARE 11/07/05 Polyp proximal sigmoid - COLONOSCOPY due every 3 years - EGD W/O BRSH SPECIMEN W/BX 11/07/05 Hiatal hernia, Gastritis - LAP CHOLECYSTECT/CHOLANGIOGRAPHY 11/12/05 - PAST SURGICAL HISTORY OF 09/19/2008 placement AICD , [facility] - PAST SURGICAL HISTORY OF dental extraction, 16 teeth removed - MA ANESTH,CARDIAC CATH W/CORON ART AND VENT 11/29/02 - MA ANESTH,REMOVAL OF VULVA 2000 DUE TO MELANOMA - REMOVAL GALLBLADDER 2006 Cholecystectomy - VAGINAL HYSTERECTOMY 04/09/2006 Hysterectomy, vaginal Family History FAMILY HISTORY Problem Relation Age of Onset - Diabetes Mother - Hypertension Father - Stroke Father - Cancer Father lymph - Skin Cancer Maternal Aunt melanoma - Hypertension Maternal Aunt Patient Allergies ALLERGIES Allergen Reactions - Bactrim [Sulfametho* Itching - Flu Shot [Other] Intolerance sick for weeks - Celebrex [Celecoxib] GI Upset - Celexa [Citalopram * Mental Status Change - Cheese (See Vegetab* Hives - Ciprofloxacin Hcl Itching After script Nov 2010 - Codeine Hives - Darvocet-N 100 [Pro* Hives - Diazepam Hives - Doxycycline Intolerance HEART RACING - Flexeril [Cyclobenz* GI Upset gi upset, bloating - Ivp/Ct Dye [Other] Hives - Meloxicam Intolerance Abdominal pain, bloating and hartburn. - Methocarbamol Rash - Nabumetone Rash - Naprosyn [Naproxen] GI Upset - Omeprazole GI Upset - Penicillins Hives - Pramipexole Intolerance - Ropinirole Rash - Seasonings [Other] - Trimox [Amoxicillin] Hives, Itching - Tylenol [Acetaminop* Hives - Vicodin Tuss [[place]* Mental Status Change - Vicodin [Hydrocodon* GI Upset - Zantac [Ranitidine * Hives Current Medications Current Outpatient Prescriptions on File Prior to Visit: LORazepam (ATIVAN) 1 mg tablet Take 1 tablet by mouth three times daily as needed for Anxiety. nystatin cream Apply a quarter size amount to the affected area 3 times a day for 2 weeks lisinopril 20 mg tablet Take 1 tablet by mouth twice daily. Estradiol (ESTRACE) 0.5 mg tablet Take 1 tablet by mouth once daily. albuterol HFA (PROAIR HFA) 90 mcg/actuation inhaler Inhale 2 Puffs as instructed every 4 hours as needed for Wheezing/Shortness of Breath. metoprolol tartrate, short acting, 50 mg tablet Take 1 tablet by mouth twice daily. furosemide 20 mg tablet Take 1 tablet by mouth once daily. cetirizine (ZYRTEC) 10 mg tablet Take 1 tablet by mouth once daily. albuterol 2.5 mg /3 mL (0.083 %) nebulizer solution Use via nebulizer. four times daily as needed No current facility-administered medications on file prior to visit. 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 Social History Main Topics Smoking status: Current Every Day Smoker Packs/day: 0.50 Years: 40.00 Types: Cigarettes Smokeless tobacco: Never Used Alcohol use: No Drug use: No Sexual activity: Not Currently Partners with: Male control/protection: Surgical Comment: Vaginal Hysterectomy 2007 Social History Narrative disability Review of Symptoms REVIEW OF SYSTEMS GENERAL: No weight loss, malaise or fevers RESPIRATORY: Negative for cough, hemoptysis, wheezing, COPD, dyspnea or shortness of breath CARDIOVASCULAR: Negative for chest pain, leg swelling, hypertension, CHF or palpitations GI: No nausea, vomiting, or diarrhea SKIN: Negative for lesions, rash, and itching EXAM: BP 122/68 (BP Site: Right Arm, BP Position: Sitting, BP Cuff Size: Regular Adult) Pulse 80 Resp 18 Wt 72.1 kg (159 lb) LMP 03/23/2006 SpO2 97% BMI 26.66 kg/m? General Appearance: Well appearing, alert, in no acute distress, well-hydrated, well nourished.. Skin: Skin color, texture, turgor normal, no suspicious rashes or lesions. Lungs: Lungs clear to auscultation. No wheezing, rhonchi, rales. Heart: RRR without murmur, gallop, or rubs. No ectopy. Abdomen: Normal abdominal exam, Abdomen soft, non-tender. Bowel sounds normal. No masses, organomegaly. Extremities: No deformities, edema, skin discoloration, clubbing or cyanosis. Good capillary refill. . Health Maintenance List ANNUAL PCP TEAM CHRONIC DISEASE VISIT due on 11/30/1979 ONE PNEUMOVAX PRIOR TO AGE 66 due on 1980 HEPATITIS C SCREENING due on 2005 FECAL OCCULT BLOOD due on 03/03/2014 MAMMOGRAM due on 09/13/2014 PAP EVERY 3 YEARS due on 08/04/2016 DIABETES SCREEN due on 05/18/2017 LIPID SCREEN due on 11/11/2017 DTAP,TDAP,TD(3 - Td) due on 12/15/2021 ASSESSMENT/PLAN: 1. Anxiety - ICD9: 300.00, ICD10: F41.9 (primary diagnosis) Patient will follow up with Dr. Evans for refills of her ativan. - LORAZEPAM 1 MG TABLET 2. Chronic obstructive pulmonary disease, unspecified COPD type (HCC) - ICD9: 496, ICD10: J44.9 Continue current regimen, follow up with PCP. 3. AICD (automatic cardioverter/defibrillator) present - ICD9: V45.02, ICD10: Z95.810 Asymptomatic. Continue current regimen. Follow up with cardiology. 4. Cardiomyopathy, unspecified type (HCC) - ICD9: 425.4, ICD10: I42.9 Asymptomatic. Continue current regimen. Follow up with cardiology. 5. Tobacco use disorder - ICD9: 305.1, ICD10: F17.200 - Cessation encouraged. - Physiologic and physical aspects of tobacco addiction as well as strategies for quitting were discussed. - Counseling was given focusing on the harmful effects of this addiction especially given the patient's medical condition(s) which will be worsened because of the chemicals in tobacco. I spent 40 minutes in the visit, with more than 50% of the total [id number]-ud-tsgp time of the visit in counseling / coordination of care. Nuha Quesada MD INTERNAL MEDICINE Observed: 11/24/2017 Status: F Source: [place] OFFICE VISIT 4:56 PM [facility] Internal Medicine [address] [place] [address] [place] [address] OFFICE VISIT Date of Service: 11/24/17 MR#: [id number] Acct: [id number] Name: LISA GARZA Rep #: [id number] : 1960 Provider: Yosi Evans MD Age/Sex: 56/F Location: [facility] Status: Signed Intake Vital Signs11/24/17 Height 5 ft 6 in 11/24/17 Weight: 156 lb 11/24/17 Body Mass Index (BMI) 25.2 11/24/17 Blood Pressure 116/70 11/24/17 Blood Pressure Location Rt brachial 11/24/17 Blood Pressure Position Sitting Intake Visit Reasons: POSS BRONCHITIS Chief Complaint: cough Is patient in pain?: No Allergies acetaminophen [From Tylenol] Allergy (Verified 11/20/17 10:44) Hives amoxicillin [Amoxicillin] Allergy (Verified 11/20/17 10:44) Hives amoxicillin trihydrate [From Trimox] Allergy (Verified 11/20/17 10:44) Hives codeine Allergy (Verified 11/20/17 10:44) Hives diazepam Allergy (Verified 11/20/17 10:44) Hives methocarbamol Allergy (Verified 11/20/17 10:44) Rash nabumetone Allergy (Verified 11/20/17 10:44) Rash Penicillins Allergy (Verified 11/20/17 10:44) Hives ranitidine HCl [From Zantac] Allergy (Verified 11/20/17 10:44) Hives ropinirole Allergy (Verified 11/20/17 10:44) Rash celecoxib [From Celebrex] Adverse Reaction (Verified 11/20/17 10:44) Nausea/Vom/Diarrhea ciprofloxacin Adverse Reaction (Verified 11/20/17 10:44) Itching citalopram hydrobromide [From Celexa] Adverse Reaction (Verified 11/20/17 10:44) Other cyclobenzaprine HCl [From Flexeril] Adverse Reaction (Verified 11/20/17 10:44) Nausea doxycycline Adverse Reaction (Verified 11/20/17 10:44) Other hydrocodone bitartrate [From Vicodin] Adverse Reaction (Verified 11/20/17 10:44) Nausea meloxicam Adverse Reaction (Verified 11/20/17 10:44) Other naproxen [From Naprosyn] Adverse Reaction (Verified 11/20/17 10:44) Nausea omeprazole Adverse Reaction (Verified 11/20/17 10:44) Nausea pramipexole Adverse Reaction (Verified 11/20/17 10:44) Other Medications Estradiol [Estrace] 0.5 mg PO DAILY 06/01/14 [History Confirmed 11/20/17] Furosemide [Lasix] 20 mg PO DAILY 06/01/14 [History Confirmed 11/20/17] albuterol sulfate 2.5 mg/3 mL (0.083 %) solution for nebulization 2.5 mg INHALATION Q6H PRN #180 ml 04/08/17 [Rx Confirmed 11/20/17] lorazepam 1 mg tablet 1 mg PO BID PRN #60 tab 07/13/17 [Rx Confirmed 11/20/17] omeprazole 20 mg capsule,delayed release 20 mg PO QDAY #90 cap 07/16/17 [Rx Confirmed 11/20/17] lisinopril 20 mg tablet 20 mg PO BID #180 tab 08/04/17 [Rx Confirmed 11/20/17] metoprolol tartrate 50 mg tablet 50 mg PO BID #180 tab 08/04/17 [Rx Confirmed 11/20/17] cholecalciferol (vitamin D3) 50,000 unit capsule 50,000 unit PO QWEEK #4 cap 09/18/17 [Rx Confirmed 11/20/17] calcium carbonate 600 mg calcium (1,500 mg) tablet 600 mg PO BID #60 tab 10/07/17 [Rx Confirmed 11/20/17] magnesium oxide 400 mg tablet 400 mg PO BID #180 tab 10/07/17 [Rx Confirmed 11/20/17] loratadine 10 mg tablet 10 mg PO DAILY PRN #90 tab 11/06/17 [Rx Confirmed 11/20/17] potassium chloride ER 20 mEq tablet,extended release(part/cryst) 20 meq PO BID #60 tab 11/06/17 [Rx Confirmed 11/20/17] azithromycin 250 mg tablet See Label Instructions PO .COMPLEX #6 tab 11/24/17 [Rx Confirmed 11/24/17] ipratropium bromide 0.02 % solution for inhalation 0.5 mg INHALATION Q8H PRN #62.5 ml 11/24/17 [Rx Confirmed 11/24/17] prednisone 20 mg tablet 40 mg PO DAILY #10 tab 11/24/17 [Rx Confirmed 11/24/17] PFSH Medical History Essential (primary) hypertension (Chronic) Hypomagnesemia (Chronic) Sinusitis (Acute) Electrolyte abnormality (Chronic) Alcoholic cardiomyopathy (Chronic) Dizziness and giddiness (Chronic) Shortness of breath (Chronic) Family history of CVA (Chronic) Family history of hyperlipidemia (Chronic) Family history of hypertension (Chronic) COPD (chronic obstructive pulmonary disease) (Chronic) Cardiomyopathy, dilated (Chronic) GERD (gastroesophageal reflux disease) (Chronic) Depression with anxiety (Chronic) Diabetes (Chronic) Systolic heart failure (Chronic) Non-ischemic cardiomyopathy (Chronic) COPD (chronic obstructive pulmonary disease) (Chronic) Cancer of vulva (Chronic) GERD (gastroesophageal reflux disease) (Chronic) Nicotine dependence in remission (Chronic) Surgical History Presence of automatic implantable cardioverter-defibrillator (Chronic 09/19/08) H/O: hysterectomy (Chronic) Hx of cholecystectomy (Chronic) Status post left heart catheterization (Chronic 12/31/05) excision of cancer of vulva (Chronic) Family History Father CVA (cerebral vascular accident) Hypertension Diabetes Cancer Mother Diabetes Hypertension Social History Smoking Status: Heavy Smoker (>10/day) alcohol intake: former substance use type: does not use caffeine: Yes Type: coffee, carbonated beverages Number of servings: 4 what type of physical activity do you participate in: none HPI HPI Chief Complaint: cough Details: LISA GARZA, is a 56yo F who presents to the office today due to complaints of worsening cough and shortness of breath. Been ongoing for the last couple of days. She denies chills or fever however in addition to cough and shortness of breath she has noticed increased sputum production. Symptoms are said to be significantly distressing. She has a history of COPD/asthma but is not on any maintenance inhalers due to cost. She states that she has been using her nebulized albuterol without any significant improvement. ROS Const Constitutional: No weight change, body ache, chills, fatigue, sleep problems, fever(s), change in appetite, snoring, weakness, frequent falls, headache(s) or excessive sweating Eyes Eyes: No change in vision, eye pain, light sensitivity or blurry vision ENT ENT: Positive for nasal congestion, sinus pressure and nasal discharge; no headache(s), abnormal hearing, ear pain, tinnitus, sore throat or neck pain Resp Respiratory: Positive for cough Cough: Yes productive; no snoring, shortness of breath or wheezing Cardio Cardiology: No excessive sweating, chest pain at rest, chest pain with exertion, shortness of breath, dyspnea on exertion, palpitations, orthopnea or lightheadedness Gastro GI: No abdominal pain, change in bowel habits, constipation, diarrhea, vomiting, nausea/dyspepsia or cramping Genitourinary-Female: No burning urination, painful urination, urinary incontinence, urinary frequency, abnormal vaginal bleeding, pelvic pain or other Musc Musculoskeletal: No neck pain, abnormal walking, joint pain, back pain, limited range of motion, numbness or tingling Skin Skin: No redness, dry skin, itching, lesions, wounds or rash Neuro Neurology: No weakness, frequent falls, headache(s), abnormal hearing, abnormal walking, numbness, tingling, abnormal speech, dizziness or memory loss Psych Psychiatric: No change in appetite, No memory loss, No anxiety, No depression, No Thoughts of harming yourself/Others Endo Endocrine: No fatigue, excessive sweating, cold intolerance, increased thirst/drinking, heat intolerance, flushing or increased hunger Aller/Imm Allergy/Immunologic: No wheezing, itchy eyes, hives or seasonal allergy symptoms Keith/Lymp Hematologic/Lymphatic: No easy bleeding, easy bruising or enlarged lymph nodes Exam Const General: cooperative, no acute distress Orientation: alert, awake, oriented x3 HENMT Head: atraumatic, normocephalic Ears: hearing grossly normal bilaterally Nose: external nose normal Resp Effort AND Inspection: normal respiratory effort, able to speak in complete sentences Auscultation: Bilateral: Diminished Lung Sounds Cardio Rate: regular rate Rhythm: regular rhythm Heart Sounds: S1 normal, S2 normal GI Palpation: soft, no hepatosplenomegaly Neuro General: alert, awake, oriented x3, moves all extremities, CN's II-XI intact bilaterally Psych Appearance: grossly normal Mental Status: mental status grossly normal Affect: normal affect Assessment AND Plan 1. COPD (chronic obstructive pulmonary disease) J44.9 Plan Appears to be in exacerbation. Not tolerant of a lot of antibiotics. Will start on a Z-Jeff. Prednisone burst. Ipratropium inhalers in addition to albuterol. Advised to call with any worsening symptoms. 2. Hypomagnesemia E83.42 Plan Chronic/recurrent. Had been advised to follow-up with nephrology however, she declined due to cost. Repeat serum magnesium ordered. Follow-up with results. This note was generated with Inven[employer] dictation software. It may contain incorrect words, spelling, and punctuation that were not noted in checking the note before signing. Orders Orders: Plan Detail Other Medications New: Coding Level of Care Code Off vis,est,level 3 Diagnoses COPD (chronic obstructive pulmonary disease) J44.9 Hypomagnesemia E83.42 11/24/17 7476 <Electronically signed by Yosi Evans MD> Date Yosi Evans MD Cosigner Signature: Date (if applicable) CC: PACEMAKER CHECK Observed: 11/21/2017 Status: F Source: [place] 2:06 PM [facility] REPOSITORY [facility] [address] [place] [address] Pacemaker Check Date of Service: 11/20/17 1053 MR#: [id number] Acct: [id number] Name: LISA GARZA Jaiden Rep #: [id number] : 1960 From: Aliyah Aguilar Age/Sex: 56/F [place] [facility] [place] [place] Status: Signed Billing Codes ICD Device Billing: ICD Dev Prog Eval, Multi 11/20/17 1054 <Electronically signed by Aliyah Aguilar > Date Aliyah Aguilar 11/21/17 1406<Electronically signed by Stewart Diane MD> Jagdeepign Signature: Date (if applicable) Stewart Diane MD CC: CARDIOLOGY VISIT Observed: 11/21/2017 Status: F Source: [place] REPORT 2:06 PM [facility] REPOSITORY [facility] [id number] [place] [address] OFFICE VISIT Date of Service: 11/20/17 MR#: [id number] Acct: [id number] Name: LISA GARZA Jaiden Rep #: [id number] : 1960 Provider: SAMMY Gooden Age/Sex: 56/F [place] [facility] [place] [place] Status: Signed HPI HPI Details: LISA GARZA, is a 56 F who presents to the office today for She has a history of nonischemic cardiomyopathy status post biventricular ICD placement 2013, hypertension, and tobacco abuse. Pt. denies chest, arm, jaw, or neck discomfort. Her exercise tolerance is stable. Pt. denies symptoms of palpitations, lightheadedness, dizziness, near syncope, or syncopal episodes. Pt. denies edema or claudication issues. Pt. denies orthopnea, PND, myalgia, or unexplainable fatigue. She states intermittent shortness of breath that comes and goes while vacuuming. She states having a productive cough. Intake Vital Signs11/20/17 Height 5 ft 6 in 11/20/17 Weight: 157 lb 11/20/17 Body Mass Index (BMI) 25.3 11/20/17 Blood Pressure 110/62 11/20/17 Blood Pressure Location Lt brachial Intake Visit Reasons: 6 M FU (pacer @ 10am) Icu Clerk Required: No Accompanied by: None Is patient in pain?: No Allergies acetaminophen [From Tylenol] Allergy (Verified 11/20/17 10:44) Hives amoxicillin [Amoxicillin] Allergy (Verified 11/20/17 10:44) Hives amoxicillin trihydrate [From Trimox] Allergy (Verified 11/20/17 10:44) Hives codeine Allergy (Verified 11/20/17 10:44) Hives diazepam Allergy (Verified 11/20/17 10:44) Hives methocarbamol Allergy (Verified 11/20/17 10:44) Rash nabumetone Allergy (Verified 11/20/17 10:44) Rash Penicillins Allergy (Verified 11/20/17 10:44) Hives ranitidine HCl [From Zantac] Allergy (Verified 11/20/17 10:44) Hives ropinirole Allergy (Verified 11/20/17 10:44) Rash celecoxib [From Celebrex] Adverse Reaction (Verified 11/20/17 10:44) Nausea/Vom/Diarrhea ciprofloxacin Adverse Reaction (Verified 11/20/17 10:44) Itching citalopram hydrobromide [From Celexa] Adverse Reaction (Verified 11/20/17 10:44) Other cyclobenzaprine HCl [From Flexeril] Adverse Reaction (Verified 11/20/17 10:44) Nausea doxycycline Adverse Reaction (Verified 11/20/17 10:44) Other hydrocodone bitartrate [From Vicodin] Adverse Reaction (Verified 11/20/17 10:44) Nausea meloxicam Adverse Reaction (Verified 11/20/17 10:44) Other naproxen [From Naprosyn] Adverse Reaction (Verified 11/20/17 10:44) Nausea omeprazole Adverse Reaction (Verified 11/20/17 10:44) Nausea pramipexole Adverse Reaction (Verified 11/20/17 10:44) Other Medications Estradiol [Estrace] 0.5 mg PO DAILY 06/01/14 [History Confirmed 11/20/17] Furosemide [Lasix] 20 mg PO DAILY 06/01/14 [History Confirmed 11/20/17] albuterol sulfate 2.5 mg/3 mL (0.083 %) solution for nebulization 2.5 mg INHALATION Q6H PRN #180 ml 04/08/17 [Rx Confirmed 11/20/17] lorazepam 1 mg tablet 1 mg PO BID PRN #60 tab 07/13/17 [Rx Confirmed 11/20/17] omeprazole 20 mg capsule,delayed release 20 mg PO QDAY #90 cap 07/16/17 [Rx Confirmed 11/20/17] lisinopril 20 mg tablet 20 mg PO BID #180 tab 08/04/17 [Rx Confirmed 11/20/17] metoprolol tartrate 50 mg tablet 50 mg PO BID #180 tab 08/04/17 [Rx Confirmed 11/20/17] cholecalciferol (vitamin D3) 50,000 unit capsule 50,000 unit PO QWEEK #4 cap 09/18/17 [Rx Confirmed 11/20/17] calcium carbonate 600 mg calcium (1,500 mg) tablet 600 mg PO BID #60 tab 10/07/17 [Rx Confirmed 11/20/17] magnesium oxide 400 mg tablet 400 mg PO BID #180 tab 10/07/17 [Rx Confirmed 11/20/17] loratadine 10 mg tablet 10 mg PO DAILY PRN #90 tab 11/06/17 [Rx Confirmed 11/20/17] potassium chloride ER 20 mEq tablet,extended release(part/cryst) 20 meq PO BID #60 tab 11/06/17 [Rx Confirmed 11/20/17] Ejection fraction %: 40 to 44 PFSH Medical History Essential (primary) hypertension (Chronic) Hypomagnesemia (Chronic) Sinusitis (Acute) Electrolyte abnormality (Chronic) Alcoholic cardiomyopathy (Chronic) Dizziness and giddiness (Chronic) Shortness of breath (Chronic) Family history of CVA (Chronic) Family history of hyperlipidemia (Chronic) Family history of hypertension (Chronic) COPD (chronic obstructive pulmonary disease) (Chronic) Cardiomyopathy, dilated (Chronic) GERD (gastroesophageal reflux disease) (Chronic) Depression with anxiety (Chronic) Diabetes (Chronic) Systolic heart failure (Chronic) Non-ischemic cardiomyopathy (Chronic) COPD (chronic obstructive pulmonary disease) (Chronic) Cancer of vulva (Chronic) GERD (gastroesophageal reflux disease) (Chronic) Nicotine dependence in remission (Chronic) Surgical History Presence of automatic implantable cardioverter-defibrillator (Chronic 09/19/08) H/O: hysterectomy (Chronic) Hx of cholecystectomy (Chronic) Status post left heart catheterization (Chronic 12/31/05) excision of cancer of vulva (Chronic) Family History Father CVA (cerebral vascular accident) Hypertension Diabetes Cancer Mother Diabetes Hypertension Social History Smoking Status: Heavy Smoker (>10/day) alcohol intake: former substance use type: does not use caffeine: Yes Type: coffee, carbonated beverages Number of servings: 4 what type of physical activity do you participate in: none ROS Const Const: Negative for fatigue, weakness, body ache, fever(s) or chills ENT ENT: Negative for dizziness Cardio Chest Pain: No Palpitations: No Edema: None Muscle aches with walking: None Resp Respiratory: Positive for SOB with activity and Cough; negative for SOB at rest, SOB orthopnea\SOB lying down or paroxysmal nocturnal dyspnea GI GI: Negative nausea, black,tarry stools, bright, red blood in stools or vomiting blood/hematemesis : Negative for hematuria or frequent nighttime urination/ nocturia Musc Musc: Negative for muscle aches/ myalgia Skin Skin: Negative non-healing lesions or rash Neuro Neuro: Negative for weakness, dizziness, lightheadedness, near syncope, syncope or orthostatic symptoms Endo Endo: Negative for fatigue Allergy Allergy/Immunology: Negative for rash Cardiology Exam Const Appearance: cooperative, healthy appearing, comfortable, no acute distress and other Nutritional Appearance: average body habitus Orientation: alert, awake and oriented x3 Head Head: normal to inspection Mouth: oral mucosae normal Neck Neck: no JVD and normal visual inspection Carotids: normal carotid upstroke Chest Chest inspection: normal inspection of the chest and normal respiratory effort Auscultation: Bilateral: Clear to Auscultation Cardio Rate: regular rate Rhythm: regular rhythm Heart sounds: S1 normal and S2 normal; negative rub or gallop GI GI: normal to inspection Neuro General: alert, awake, oriented x3 and CN's II-XI intact bilaterally Skin Skin: no rashes or lesions noted Extremities Pulses: Normal: Right Posterior Tibial Pulse, Left Posterior Tibial Pulse, Right Radial Pulse, Left Radial Pulse Lower Extremity Edema: None: Bilateral Psych Psychological: normal affect Supplemental Info Echocardiogram from July 2014 showed and ejection fraction 40%, mild mitral valve insufficiency, and mild to moderate tricuspid valve insufficiency. Heart catheterization from December 2005 showed a left main free of significant plaque, LAD with no significant stenosis, LCx with no significant stenosis, and an RCA that was dominant with with 30% stenosis but is thought to be possibly related to spasm. Based on results medical therapy was recommended. Pacemaker check from August 2017 showed no VT/VF episodes and 1 MS, <1% total time since last check 04/23/17. Stored e-gram shows on 07/11/17 atrial flutter for approx 2 secs. Left pectoral pocket/incision w/o s/s of infection or erosion. Pt offers no cardiac complaints. Presenting rhythm shows P synchronous Bi-Vpaced @ 72 ppm. RV=92% BN=104%. Estimated battery life 7 yrs. Lead impedances, sensing and pace/sense thresholds remain stable. LV threshold consistently high. No parameter changes made. Counters cleared. Assessment AND Plan 1. Non-ischemic cardiomyopathy I42.8 Thomas - CELINE Perry Her echocardiogram in July 2014 showed ejection fraction of 40%. She is status post by ventricular ICD for this. She does acknowledge intermittent shortness of breath. It is possible this is related to her extensive smoking history. She does not exhibit any symptoms of fluid volume overload. At this time we will continue to monitor. She will continue with beta-laura, CHARANJIT inhibitor, and diuretic. 2. Essential (primary) hypertension I10 CELINE Crowe Patient's blood pressure is well-controlled today in the office. We will continue to monitor this. We will not make any medication regimen changes. 3. Presence of automatic implantable cardioverter-defibrillator Z95.810 CELINE Crowe Her most recent pacemaker check from November 2017 showed battery longevity approximately 7 years, 1 MS episode of atrial flutter, no VT/VF episodes, AP% 0%, RV% 86% and LV % 99%. He will continue current medications and we will continue to follow-up with pacemaker clinic on a routine basis. 4. Cough R05 Plan - CELINE Perry At this time it does not appear that her cough is related to fluid volume overload. Because it is a productive cough it does appear to be related to her CHARANJIT inhibitor. It is possible this is related to her smoking history. At this time we will continue to monitor. She was instructed to contact her primary care physician if this progresses or worsens in any way. Plan Detail Additional Comments - CELINE Perry Discussed the above patient with Dr. Diane, he agrees with the plan of care. Thank you for allowing us to participate in the patients plan of care, if you have any questions please do not hesitate to call. This note was generated using a voice recognition system and there may be incorrect words, spelling or punctuation that were not noted when reviewing the office note prior to saving. 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 MECHANIC) Coding Level of Care Code Off vis,est,level 3 Diagnoses Non-ischemic cardiomyopathy I42.8 Essential (primary) hypertension I10 Presence of automatic implantable cardioverter-defibrillator Z95.810 Cough R05 Coding Level of Care Code Off vis,est,level 3 Diagnoses Non-ischemic cardiomyopathy I42.8 Essential (primary) hypertension I10 Presence of automatic implantable cardioverter-defibrillator Z95.810 Cough R05 11/20/17 1250 <Electronically signed by Rudolph BERGER> Date Rudolph BERGER 11/21/17 1406<Electronically signed by Stewart Diane MD> Cosigner Signature: Date (if applicable) Stewart Diane MD CC: Yosi Evans MD BASIC METABOLIC Collected: 10/20/2017 Status: F Source: [place] PROFILE (BMP) 9:05 AM [facility] REPOSITORY TYPE CODE TESTS RESULT OUT OF RANGE REFERENCE UNITS LAB L501.0100 74-106 mg/dL High GLU 118 Result Comment: Fasting Glucose result from 100 to 125 mg/dL suggests IMPAIRED HOMEOSTASIS per A.D.A. criteria. Please note revised GLUCOSE reference range effective 2017. LAB L501.1000 7-18 mg/dL Normal BUN 15 LAB L501.1100 0.55-1.02 mg/dL High CREAT,SERUM 1.03 Result Comment: The validity of the calculated GFR AND GFRAA in patients over 70 years has not been determined. Clinical correlation is essential. LAB L501.1110 >60 mL/min Low EST GFR 59 Result Comment: Non- GFR Calc LAB L501.1115 >60 mL/min Normal EST GFR - AA 71 Result Comment: GFR Calc LAB L501.1300 10-20 RATIO Normal BUN/CRE 14.6 LAB L501.2200 8.5-10.1 mg/dL CA Normal 9.6 LAB L501.5300 136-145 mmol/L NA Normal 138 LAB L501.5600 3.5-5.1 mmol/L K Normal 4.4 LAB L501.5900 98-107 mmol/L CL Normal 98 LAB L501.6100 21.0-32.0 mmol/L Normal CO2 29.0 LAB L501.6200 5-15 Normal GAP 11 Performed By: #### L500.2500 #### [facility] [address] [place], [address] VITAMIN D,25 HYDROXY Collected: 09/18/2017 Status: F Source: [place] 11:25 AM [facility] REPOSITORY TYPE CODE TESTS RESULT OUT OF REFERENCE UNITS RANGE LAB L506.1000 29.95-100.01 ng/mL Low Vitamin D 13.1 25-OH Result Comment: Vitamin D 25(OH) Status Range Deficiency <20 ng/mL (50nmol/L) Insuffciency 20 - 30 ng/mL (50 - 75 nmol/L) Sufficiency 30 - 100 ng/mL (75 - 250 nmol/L) Toxicity >100 ng/mL (>250 nmol/L) Performed By: #### L506.1000 #### [facility] [address] [place], [address] VITAMIN D 1,25-DIHYDROXY Collected: 09/18/2017 Status: F Source: [place] 11:25 AM [facility] REPOSITORY TYPE CODE TESTS RESULT OUT OF RANGE REFERENCE UNITS LAB L3300.0960 19.9-79.3 pg/mL Normal VITD 1,25 46.5 35409 Result Comment: Performed at: - [facility] [address] [id number] [place] Flaker: Willie Mckeon MD, Phone: [phone] Performed By: #### L3300.0960 #### [facility] (refer to report for specific site) refer to report for address and phone number MAGNESIUM Collected: 09/16/2017 Status: F Source: [place] 9:41 AM [facility] REPOSITORY TYPE CODE TESTS RESULT OUT OF RANGE REFERENCE UNITS LAB L501.5200 1.6-2.6 mg/dL Normal MG 2.5 Performed By: #### L501.5200 #### [facility] [address] [place], [address] MAGNESIUM Collected: 09/11/2017 Status: F Source: [place] 1:24 PM [facility] REPOSITORY TYPE CODE TESTS RESULT OUT OF RANGE REFERENCE UNITS LAB L501.5200 1.6-2.6 mg/dL Low alert MG 0.9 Result Comment: Critical Result(s) Called at: 14:17:23 09/11/2017 by: Angely Leyva Performed By: #### L501.5200 #### [facility] [address] [place], [address] PACEMAKER CHECK Observed: 08/27/2017 Status: F Source: [place] 7:46 AM [facility] REPOSITORY [facility] [address] [place] [address] Pacemaker Check Date of Service: 08/19/17 1105 MR#: [id number] Acct: [id number] Name: LISA GARZA Rep #: [id number] : 1960 From: Aliyah Aguilar Age/Sex: 56/F [place] [facility] [place] [place] Status: Signed Comments Summary Comments: Bi-VICD Evaluation: See attached scanned ios programmer report. Interrogation shows no VT/VF episodes and 1 MS, <1% total time since last check 04/23/17. Stored e-gram shows on 07/11/17 atrial flutter for approx 2 secs. Left pectoral pocket/incision w/o s/s of infection or erosion. Pt offers no cardiac complaints. Presenting rhythm shows P synchronous Bi-Vpaced @ 72 ppm. RV=92% YN=023%. Estimated battery life 7 yrs. Lead impedances, sensing and pace/sense thresholds remain stable. LV threshold consistently high. No parameter changes made. Counters cleared. Next f/u appt scheduled for in 3 mos. Device Device Date Interviewed: 08/19/17 Follow-up Location: in office Interview Reason: scheduled follow up J2Ee Software Engineer: Lovely Name: Inogen CUSTOM BIKE BUILDER-D IS-1/DF-1/IS-1 Model: [id number] Serial #: [id number] Implant Date: 04/23/17 Year(s): 0 Implant Physician: NAKUL ABDALLA MD Patient Characteristics Patient Substrate: Nonischemic cardiomyopathy Ejection fraction %: 35 to 39 By: Echo Underlying rhythm: Sinus bradycardia Pacemaker Dependent: No Device Characteristics Device: Biventricular Type: Implantable defibrillator Remote Follow-Up: No Device Physical Exam Yes Incision well healed Leads Lead #1 J2Ee Software Engineer Lead 1: Guidant Model Lead 1: 4136-53 Serial# Lead 1: [id number] Date Implanted Lead 1: 09/19/08 Position Lead 1: RA Lead #2 J2Ee Software Engineer Lead 2: Guidant Model Lead 2: 0184 Serial# Lead 2: [id number] Date Implanted Lead 2: 09/19/08 Position Lead 2: RV Lead #3 J2Ee Software Engineer Lead 3: Guidant Model Lead 3: 4592/90 Serial# Lead 3: [id number] Date Implanted Lead 3: 09/19/08 Position Lead 3: LV Diagnostics Pacing % RA Pacin % RV Pacin % LV Pacin Mode Switching Total # Episodes: 1 % Mode switched: 1 Arrhythmias VF Episodes: 0 Fast VT Episodes: 0 Slow VT Episodes: 0 Atrial Tach Episodes: 0 Atrial Fib Episodes: 0 Non-Sust Episodes: 0 Tachy Settings VF Therapies VF Therapy Status On On On On On On Energy 41 41 41 41 41 41 Pathway ATP: During charging on FVT Therapies FVT Therapy Status off off off off off off VT Therapies FVT Therapy Status On/Off On/Off On/Off On/Off On/Off On/Off Comments: Edy Settings Edy Settings Pacemaker Mode DDD Output/Sensing V/PW (ms) 2.0/0.4 2.0/0.4 4.0/1.0 Sensitivity RA RV LV AGC 0.25 0.6 1.0 Comments: Billing Codes ICD Device Billing: ICD Dev Prog Eval, Multi Assessment AND Plan Problems 1. Presence of automatic implantable cardioverter-defibrillator Z95.810 2. 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 3. Chronic systolic heart failure I50.22 4. Non-ischemic cardiomyopathy I42.8 08/26/17 1814 <Electronically signed by Aliyah Aguilar > Date Aliyah Aguilar 08/27/17 0746<Electronically signed by Stewart Diane MD> Cosignjericho Signature: Date (if applicable) Stewart Diane MD CC: CREATININE, URINE Collected: 07/29/2017 Status: F Source: [place] (RANDOM) 11:47 AM [facility] REPOSITORY TYPE CODE TESTS RESULT OUT OF RANGE REFERENCE UNITS LAB L501.1200 NO RANGE EST. mg/dL Normal UR CREAT < 13.00 Performed By: #### L501.1200, L501.7400 #### [facility] [address] [place], [address] OSMOLALITY, URINE Collected: 07/29/2017 Status: F Source: [place] 11:47 AM [facility] REPOSITORY TYPE CODE TESTS RESULT OUT OF RANGE REFERENCE UNITS LAB L501.7400 mOsm/KG Normal 352 OSMOLALITY,U R Result Comment: OSMOLALITY URINE REFERENCE INTERVALS 24-hour Urine 300 - 900 mOsm/kg Random Urine 50 - 1400 mOsm/kg After 12 Hr fluid restriction >850 mOsm/kg Performed By: #### L501.1200, L501.7400 #### [facility] [address] [place], [address] MAGNESIUM Collected: 07/29/2017 Status: F Source: [place] 11:47 AM [facility] REPOSITORY Order Comment: PLEASE MAKE SURE URINE MAGNESIUM SPECIMEN HAS A PH LESS THEN 3. TYPE CODE TESTS RESULT OUT OF RANGE REFERENCE UNITS LAB L501.5200 1.6-2.6 mg/dL Normal MG 1.8 Performed By: #### L501.5200 #### [facility] [address] [place], [address] OSMOLALITY, SERUM Collected: 07/29/2017 Status: F Source: [place] 11:47 AM [facility] REPOSITORY TYPE CODE TESTS RESULT OUT OF RANGE REFERENCE UNITS LAB L501.7300 275-295 mOsm/KG Normal 289 OSMOLALITY,S ER Performed By: #### L501.7300 #### [facility] [address] [place], [address] MISCELLANEOUS LAB Collected: 07/29/2017 Status: F Source: [place] PROCEDURE 11:47 AM [facility] REPOSITORY Order Comment: PLEASE MAKE SURE URINE MAGNESIUM SPECIMEN HAS A PH LESS THEN 3. Comments: [id number] PH NEEDS TO BE LESSTHAN 3 Test(s) Ordered: [id number] PH NEEDS TO BE LESSTHAN 3 TYPE CODE TESTS RESULT OUT OF RANGE REFERENCE UNITS LAB L801.1541 Normal [facility] [place] [facility] TEST Result Comment: TEST RESULT UNITS REFERENCE INTERVAL MAGNESIUM, U <1.4 mg/dL NOT ESTAB. VERIFIED BY REPEEAT ANALYSIS DETECTION LIMIT = 0.1 TESTING PERFORMED AT [facility]. ORIGINAL REPORT ON FILE IN LAB CONTAINS ADDITIONAL TEST SITE INFORMATION. Performed By: #### L801.1541 #### [facility] [address] [place], [address] MAGNESIUM Collected: 07/22/2017 Status: F Source: [place] 10:53 AM [facility] REPOSITORY TYPE CODE TESTS RESULT OUT OF RANGE REFERENCE UNITS LAB L501.5200 1.6-2.6 mg/dL Normal MG 2.4 Performed By: #### L501.5200 #### [facility] [address] [place], [address] COMPREHENSIVE METABOLIC Collected: 07/17/2017 Status: F Source: [place] [facility] 12:28 PM [facility] REPOSITORY TYPE CODE TESTS RESULT OUT OF RANGE REFERENCE UNITS LAB L501.0100 74-106 mg/dL Normal GLU 101 Result Comment: Fasting Glucose result from 100 to 125 mg/dL suggests IMPAIRED HOMEOSTASIS per A.D.A. criteria. Please note revised GLUCOSE reference range effective 2017. LAB L501.1000 7-18 mg/dL Normal BUN 12 LAB L501.1100 0.55-1.02 mg/dL Normal CREAT,SERUM 0.91 Result Comment: The validity of the calculated GFR AND GFRAA in patients over 70 years has not been determined. Clinical correlation is essential. LAB L501.1110 >60 mL/min Normal EST GFR 68 Result Comment: Non- GFR Calc LAB L501.1115 >60 mL/min Normal EST GFR - AA 82 Result Comment: GFR Calc LAB L501.1300 10-20 RATIO Normal BUN/CRE 13.2 LAB L501.1500 6.4-8.2 g/dL T Normal PROT 7.6 LAB L501.1800 3.2-5.0 g/dL Normal ALB 3.4 LAB L501.1950 2.2-4.2 g/dL Normal GLOB 4.2 LAB L501.2000 0.9-2.4 RATIO Low A/G 0.8 LAB L501.2200 8.5-10.1 mg/dL Low CA 6.9 LAB L501.4100 15-37 U/L High AST 64 LAB L501.4305 45-117 U/L High ALK P 167 LAB L501.4405 13-56 U/L High ALT 62 LAB L501.4600 0.20-1.00 mg/dL T Normal BILI 0.70 LAB L501.5300 136-145 mmol/L NA Normal 140 LAB L501.5600 3.5-5.1 mmol/L K Normal 4.0 LAB L501.5900 98-107 mmol/L CL Normal 102 LAB L501.6100 21.0-32.0 mmol/L Normal CO2 30.0 LAB L501.6200 5-15 Normal GAP 8 Performed By: #### L500.4050, L501.5200 #### [facility] [address] [place], [address] MAGNESIUM Collected: 07/17/2017 Status: F Source: [place] 12:28 PM [facility] REPOSITORY TYPE CODE TESTS RESULT OUT OF RANGE REFERENCE UNITS LAB L501.5200 1.6-2.6 mg/dL Low alert MG 0.7 Result Comment: Critical Result(s) Called at: 13:24:12 07/17/2017 by: Juan Manuel Blanco RN Performed By: #### L500.4050, L501.5200 #### [facility] [address] [place], [address] INTERNAL MEDICINE Observed: 07/07/2017 Status: F Source: [place] OFFICE VISIT 8:24 AM [facility] REPOSITORY [facility] [address] [place] [address] OFFICE VISIT Date of Service: 07/06/17 MR#: [id number] Acct: [id number] Name: LISA GARZA Rep #: [id number] : 1960 Provider: Yosi Evans MD Age/Sex: 56/F [place] [facility] [place] Status: Signed Intake Intake Visit Reasons: Sinus infection Chief Complaint: sinus infection Allergies acetaminophen [From Tylenol] Allergy (Verified 06/12/17 09:24) Hives amoxicillin [Amoxicillin] Allergy (Verified 06/12/17 09:24) Hives amoxicillin trihydrate [From Trimox] Allergy (Verified 06/12/17 09:24) Hives codeine Allergy (Verified 06/12/17 09:24) Hives diazepam Allergy (Verified 06/12/17 09:24) Hives methocarbamol Allergy (Verified 06/12/17 09:24) Rash nabumetone Allergy (Verified 06/12/17 09:24) Rash Penicillins Allergy (Verified 06/12/17 09:24) Hives ranitidine HCl [From Zantac] Allergy (Verified 06/12/17 09:24) Hives ropinirole Allergy (Verified 06/12/17 09:24) Rash celecoxib [From Celebrex] Adverse Reaction (Verified 06/12/17 09:24) Nausea/Vom/Diarrhea ciprofloxacin Adverse Reaction (Verified 06/12/17 09:24) Itching citalopram hydrobromide [From Celexa] Adverse Reaction (Verified 06/12/17 09:24) Other cyclobenzaprine HCl [From Flexeril] Adverse Reaction (Verified 06/12/17 09:24) Nausea doxycycline Adverse Reaction (Verified 06/12/17 09:24) Other hydrocodone bitartrate [From Vicodin] Adverse Reaction (Verified 06/12/17 09:24) Nausea meloxicam Adverse Reaction (Verified 06/12/17 09:24) Other naproxen [From Naprosyn] Adverse Reaction (Verified 06/12/17 09:24) Nausea omeprazole Adverse Reaction (Verified 06/12/17 09:24) Nausea pramipexole Adverse Reaction (Verified 06/12/17 09:24) Other Medications Estradiol [Estrace] 0.5 mg PO DAILY 06/01/14 [History Confirmed 06/12/17] Furosemide [Lasix] 20 mg PO DAILY 06/01/14 [History Confirmed 06/12/17] Loratadine 10 mg PO DAILY 05/29/16 [History Confirmed 06/12/17] metoprolol tartrate 50 mg tablet 50 mg PO BID 02/13/17 [History Confirmed 06/12/17] lisinopril 20 mg tablet 20 mg PO BID tab 03/26/17 [History Confirmed 06/12/17] Calcium Carbonate 600 mg PO BID 04/06/17 [History Confirmed 06/12/17] Omeprazole 20 mg PO DAILY 04/06/17 [History Confirmed 06/12/17] Potassium Chloride [K-Dur] 20 meq PO QDAY 04/06/17 [History Confirmed 06/12/17] albuterol sulfate 2.5 mg/3 mL (0.083 %) solution for nebulization 2.5 mg INHALATION Q6H PRN #180 ml 04/08/17 [Rx Confirmed 06/12/17] magnesium oxide 400 mg tablet 400 mg PO QDAY #60 tab 06/10/17 [Rx Confirmed 06/12/17] lorazepam 0.5 mg tablet 0.5 mg PO BID PRN #40 tab 06/12/17 [Rx Confirmed 06/12/17] azithromycin 500 mg tablet 500 mg PO QDAY #3 tab 07/06/17 [Rx Confirmed 07/06/17] PFSH Medical History Alcoholic cardiomyopathy (Chronic) Dizziness and giddiness (Chronic) Shortness of breath (Chronic) Family history of CVA (Chronic) Family history of hyperlipidemia (Chronic) Family history of hypertension (Chronic) COPD (chronic obstructive pulmonary disease) (Chronic) Cardiomyopathy, dilated (Chronic) Diabetes (Chronic) Hypertension (Chronic) Systolic heart failure (Chronic) Non-ischemic cardiomyopathy (Chronic) COPD (chronic obstructive pulmonary disease) (Chronic) Cancer of vulva (Chronic) GERD (gastroesophageal reflux disease) (Chronic) Nicotine dependence in remission (Chronic) Surgical History Presence of automatic implantable cardioverter-defibrillator (Chronic 09/19/08) H/O: hysterectomy (Chronic) Hx of cholecystectomy (Chronic) Status post left heart catheterization (Chronic 12/31/05) excision of cancer of vulva (Chronic) Family History Father CVA (cerebral vascular accident) Hypertension Diabetes Mother Diabetes Hypertension Social History Smoking Status: Current every day smoker alcohol intake: former substance use type: does not use what type of physical activity do you participate in: none HPI HPI Chief Complaint: sinus infection Details: LISA GARZA, is a 56yo with PMH of recurrent sinusitis who presents today due to complaints of headache, facial pressure, nasal congestion/pressure and chills. Symptoms are said to have been ongoing for over a week. ROS Const Constitutional: Positive for chills and headache(s); no anorexia or abnormal sleep pattern ENT ENT: Positive for headache(s), nasal congestion, sinus pressure, nasal discharge and post nasal drip Resp Respiratory: Positive for cough Cardio Cardiology: No chest pain at rest or shortness of breath Gastro GI: No change in bowel habits or abdominal pain Musc Musculoskeletal: No abnormal walking or limited range of motion Neuro Neurology: Positive for headache(s); no abnormal walking, unsteady gait/balance or confusion Psych Psychiatric: No confusion, No abnormal sleep pattern Exam Const General: cooperative, no acute distress Orientation: alert, awake, oriented x3 HENMT Head: atraumatic, normocephalic Ears: hearing grossly normal bilaterally Nose: external nose normal Resp Effort AND Inspection: normal respiratory effort, able to speak in complete sentences Auscultation: Bilateral: Diminished Lung Sounds Cardio Rate: regular rate Rhythm: regular rhythm Heart Sounds: S1 normal, S2 normal GI Palpation: soft, no hepatosplenomegaly Neuro General: alert, awake, oriented x3, moves all extremities, CN's II-XI intact bilaterally Psych Appearance: grossly normal Mental Status: mental status grossly normal Affect: normal affect Assessment AND Plan 1. Sinusitis J32.9 Plan Ms. Garza has a history of recurrent sinusitis. Current symptoms also suggestive of Sinusitis. Allergic to the Penicillins. Prescription for Azithromycin 500mg daily x 3 days sent to [facility]. Tylenol and Flonase as needed. Rest and increased fluid intake also recommended. Advised to call the office with worsening symptoms/ concerns. 2. Essential hypertension I10 Plan Stable. Continue current medication. Follow up as scheduled. This note was generated with InvenQuery dictation software. It may contain incorrect words, spelling, and punctuation that were not noted in checking the note before signing. Plan Detail Other Medications New: Coding Level of Care Code Off vis,est,level 3 Diagnoses Sinusitis J32.9 Essential hypertension I10 Hypertension type: essential hypertension 07/07/17 0824 <Electronically signed by Yosi Evans MD> Date Yosi Evans MD Cosigner Signature: Date (if applicable) CC: PACEMAKER CHECK Observed: 06/25/2017 Status: F Source: [place] 2:17 PM [facility] REPOSITORY [facility] [address] [place] [address] Pacemaker Check Date of Service: 06/24/17926 MR#: [id number] Acct: [id number] Name: LISA GARZA Rep #: [id number] : 1960 From: Aliyah Raber Age/Sex: 56/F Location: [facility] Status: Signed Comments Summary Comments: Wound Check: Repeat wound check completed via Kristen Robles RN. Left pectoral pocket/incision open to air with incision well approximated, w/o drainage or redness noted. No hematoma noted. Mild ecchymosis and tape daivla resolving. Next f/u appt scheduled for in 3 mos. Device Device Date Interviewed: 05/04/17 Follow-up Location: in office Interview Reason: scheduled follow up J2Ee Software Engineer: Lovely Name: Inogen CUSTOM BIKE BUILDER-D IS-1/DF-1/IS-1 Model: G141 Serial #: [id number] Implant Date: 04/23/17 Year(s): 0 Patient Characteristics Patient Substrate: Nonischemic cardiomyopathy Ejection fraction %: 35 to 39 By: Echo Underlying rhythm: Sinus bradycardia Pacemaker Dependent: No Device Characteristics Device: Biventricular Type: Implantable defibrillator Remote Follow-Up: No Device Physical Exam Yes Incision well healed, Mild ecchymosis, No drainage and No hematoma Leads Lead #1 J2Ee Software Engineer Lead 1: Guidant Model Lead 1: 4136-53 Serial# Lead 1: [id number] Date Implanted Lead 1: 09/19/08 Position Lead 1: RA Lead #2 J2Ee Software Engineer Lead 2: Guidant Model Lead 2: 0184 Serial# Lead 2: [id number] Date Implanted Lead 2: 09/19/08 Position Lead 2: RV Lead #3 J2Ee Software Engineer Lead 3: Guidant Model Lead 3: 4592/90 Serial# Lead 3: [id number] Date Implanted Lead 3: 09/19/08 Position Lead 3: LV Tachy Settings VF Therapies VF Therapy Status On On On On On On Energy 41 41 41 41 41 41 Pathway ATP: During charging on FVT Therapies FVT Therapy Status off off off off off off VT Therapies FVT Therapy Status On/Off On/Off On/Off On/Off On/Off On/Off Comments: Edy Settings Edy Settings Pacemaker Mode DDD Output/Sensing V/PW (ms) 2.0/0.4 2.0/0.4 4.0/1.0 Sensitivity RA RV LV AGC 0.25 0.6 1.0 Comments: Billing Codes Nurse, Teaching, Wound Ck (no charge): Yes Assessment AND Plan Problems 1. Presence of automatic implantable cardioverter-defibrillator Z95.810 2. Non-ischemic cardiomyopathy I42.8 3. Chronic systolic heart failure I50.22 4. 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 06/24/17 0933 <Electronically signed by Aliyah Aguilar > Date Aliyah Aguilar 06/25/17 1417<Electronically signed by Stewart Diane MD> Trace Signature: Date (if applicable) Stewart Diane MD CC: INTERNAL MEDICINE Observed: 06/19/2017 Status: F Source: [place] OFFICE VISIT 4:57 PM [facility] Internal Medicine [address] [place] [address] [address] [place] [address] OFFICE VISIT Date of Service: 06/12/17 MR#: [id number] Acct: [id number] Name: LISA GARZA Rep #: [id number] : 1960 Provider: Yosi Evans MD Age/Sex: 56/F [place] [facility] [place]: Signed Intake Vital Signs06/12/17 Height 5 ft 5 in 06/12/17 Weight: 161 lb 06/12/17 Body Mass Index (BMI) 26.8 06/12/17 Blood Pressure 110/74 Intake Visit Reasons: sinus infection Chief Complaint: Follow up. Is patient in pain?: No Allergies acetaminophen [From Tylenol] Allergy (Verified 06/12/17 09:24) Hives amoxicillin [Amoxicillin] Allergy (Verified 06/12/17 09:24) Hives amoxicillin trihydrate [From Trimox] Allergy (Verified 06/12/17 09:24) Hives codeine Allergy (Verified 06/12/17 09:24) Hives diazepam Allergy (Verified 06/12/17 09:24) Hives methocarbamol Allergy (Verified 06/12/17 09:24) Rash nabumetone Allergy (Verified 06/12/17 09:24) Rash Penicillins Allergy (Verified 06/12/17 09:24) Hives ranitidine HCl [From Zantac] Allergy (Verified 06/12/17 09:24) Hives ropinirole Allergy (Verified 06/12/17 09:24) Rash celecoxib [From Celebrex] Adverse Reaction (Verified 06/12/17 09:24) Nausea/Vom/Diarrhea ciprofloxacin Adverse Reaction (Verified 06/12/17 09:24) Itching citalopram hydrobromide [From Celexa] Adverse Reaction (Verified 06/12/17 09:24) Other cyclobenzaprine HCl [From Flexeril] Adverse Reaction (Verified 06/12/17 09:24) Nausea doxycycline Adverse Reaction (Verified 06/12/17 09:24) Other hydrocodone bitartrate [From Vicodin] Adverse Reaction (Verified 06/12/17 09:24) Nausea meloxicam Adverse Reaction (Verified 06/12/17 09:24) Other naproxen [From Naprosyn] Adverse Reaction (Verified 06/12/17 09:24) Nausea omeprazole Adverse Reaction (Verified 06/12/17 09:24) Nausea pramipexole Adverse Reaction (Verified 06/12/17 09:24) Other Medications Estradiol [Estrace] 0.5 mg PO DAILY 06/01/14 [History Confirmed 06/12/17] Furosemide [Lasix] 20 mg PO DAILY 06/01/14 [History Confirmed 06/12/17] Loratadine 10 mg PO DAILY 05/29/16 [History Confirmed 06/12/17] metoprolol tartrate 50 mg tablet 50 mg PO BID 02/13/17 [History Confirmed 06/12/17] lisinopril 20 mg tablet 20 mg PO BID tab 03/26/17 [History Confirmed 06/12/17] Calcium Carbonate 600 mg PO BID 04/06/17 [History Confirmed 06/12/17] Omeprazole 20 mg PO DAILY 04/06/17 [History Confirmed 06/12/17] Potassium Chloride [K-Dur] 20 meq PO QDAY 04/06/17 [History Confirmed 06/12/17] albuterol sulfate 2.5 mg/3 mL (0.083 %) solution for nebulization 2.5 mg INHALATION Q6H PRN #180 ml 04/08/17 [Rx Confirmed 06/12/17] lorazepam 1 mg tablet 1 mg PO BID PRN #20 tab 06/10/17 [Rx Confirmed 06/10/17] magnesium oxide 400 mg tablet 400 mg PO QDAY #60 tab 06/10/17 [Rx Confirmed 06/12/17] lorazepam 0.5 mg tablet 0.5 mg PO BID PRN #40 tab 06/12/17 [Rx Confirmed 06/12/17] PFS Medical History Alcoholic cardiomyopathy (Chronic) Dizziness and giddiness (Chronic) Shortness of breath (Chronic) Family history of CVA (Chronic) Family history of hyperlipidemia (Chronic) Family history of hypertension (Chronic) COPD (chronic obstructive pulmonary disease) (Chronic) Cardiomyopathy, dilated (Chronic) Diabetes (Chronic) Hypertension (Chronic) Systolic heart failure (Chronic) Non-ischemic cardiomyopathy (Chronic) COPD (chronic obstructive pulmonary disease) (Chronic) Cancer of vulva (Chronic) GERD (gastroesophageal reflux disease) (Chronic) Nicotine dependence in remission (Chronic) Surgical History Presence of automatic implantable cardioverter-defibrillator (Chronic 09/19/08) H/O: hysterectomy (Chronic) Hx of cholecystectomy (Chronic) Status post left heart catheterization (Chronic 12/31/05) excision of cancer of vulva (Chronic) Family History Father CVA (cerebral vascular accident) Hypertension Diabetes Mother Diabetes Hypertension Social History Smoking Status: Current every day smoker alcohol intake: former substance use type: does not use what type of physical activity do you participate in: none HPI HPI Chief Complaint: Follow up. Details: LISA GARZA, is a 56yo F who presents to the office today for follow-up. She reports recent onset of nasal congestion and postnasal drip. She denies chills, fever or otherwise feeling of unwell. At her last visit she was also seen for electrolyte abnormalities and sent to magnesium replacement due to severely low magnesium level. Last recheck in April was within normal. She is currently on daily potassium and magnesium supplements. She is yet to follow-up with psychiatry as recommended. She is currently on lorazepam 1 mg twice daily for anxiety. She was started on Effexor however patient states that she discontinued it after poorly tolerating it. ROS Const Constitutional: Positive for sleep problems and fatigue; no anorexia, body ache, chills, fever(s), decreased energy, malaise, night sweats, weight change, other, snoring, weakness, frequent falls, abnormal sleep pattern or change in appetite Eyes Eyes: No blurry vision, change in vision, double vision, discharge, dry eyes, bulging eyes, floaters, eye pain, light sensitivity, spots in vision, tunnel vision, other or visual disturbances ENT ENT: Positive for sinus pain, nasal discharge and post nasal drip; no ear pain, ear discharge, ear pressure, tinnitus, dizziness/vertigo, balance problems, nosebleed/epistaxis, nasal congestion, nasal obstruction, nose pain, sinus pressure, facial pain, dental pain, dry mouth, bad breath, hoarseness, mouth lesions, mouth pain, sore throat, difficulty swallowing, neck pain or abnormal hearing Resp Respiratory: No cough, change in phlegm color, chest congestion, excessive phlegm production, hemoptysis, pain on inspiration, shortness of breath, pain with cough, snoring, stridor or other Cardio Cardiology: Positive for shortness of breath; no chest pain at rest, chest pain with exertion, leg pain with exertion, dyspnea on exertion, generalized swelling, irregular heart rhythm, lightheadedness, orthopnea, radiating jaw, neck or arm pain, fast heart rate, slow heart rate, palpitations or other Gastro GI: Positive for diarrhea and excessive flatus; no abdominal pain, belching, bloating, change in bowel habits, change in stool character, coffee ground emesis, constipation, cramping, heartburn, difficulty swallowing, feeling full early, incontinent of stools, Vomiting blood/hematemesis, blood in stool, loose stools, Black,tarry stools, nausea/dyspepsia, pain with swallowing, vomiting or other Genitourinary-Female: No difficulty urinating, burning urination, painful urination, urinary incontinence, urinary frequency, urinary urgency, urinary hesitancy, urinary retention, blood in urine, Frequent nighttime urination/ nocturia, post void dribbling, suprapubic fullness, side pain, sexual problems, genital lesions, genital itching, hot flashes, abnormal periods, abnormal vaginal bleeding, absent period, painful periods, light periods, heavy periods, difficulty getting , painful intercourse, pelvic pain, vaginal dryness, vaginal odor, Vaginal Itching or other Musc Musculoskeletal: No joint pain, back pain, deformity, joint swelling, limited range of motion, loss of height, muscle cramps, muscle weakness, decreased muscle mass, body aches, neck pain, radiating pain into limb, stiffness, other, abnormal walking, numbness or tingling Skin Skin: Positive for dry skin; no acne, hair loss, change in hair, nail changes, boil, change in skin color, redness, excessive hair growth, yellowing of the skin, rash, skin pain, skin ulcer, sores, skin swelling, wounds or other Breast Breast: No change in breast shape, breast lump, breast pain, breast skin changes, breast swelling, nipple discharge or other Neuro Neurology: No abnormal walking, abnormal hearing, abnormal movements, abnormal speech, unsteady gait/balance, dizziness, weakness, frequent falls, lack of coordination, loss of vision, numbness, tingling, visual disturbances, restless legs, fainting, tremor(s), other, behavioral changes, confusion or memory loss Psych Psychiatric: Positive for anxiety, Positive for depression, No abnormal sleep pattern, No lack of enjoyment, No behavioral changes, No change in appetite, No confusion, No difficulty concentrating, No hopelessness, No irritability, No memory loss, No mood swings, No panic attacks, No paranoia, No Thoughts of harming yourself/Others, No hallucinations, No other Endo Endocrine: Positive for fatigue Keith/Lymp Hematologic/Lymphatic: No easy bleeding, easy bruising, enlarged lymph nodes or other Exam Const General: cooperative, no acute distress Orientation: alert, awake, oriented x3 HENMT Head: atraumatic, normocephalic Ears: hearing grossly normal bilaterally Resp Effort AND Inspection: normal respiratory effort, able to speak in complete sentences Auscultation: Bilateral: Clear to Auscultation Cardio Rate: regular rate Rhythm: regular rhythm Heart Sounds: S1 normal, S2 normal GI Palpation: soft, no hepatosplenomegaly Musc Musculoskeletal: No muscle weakness Skin General: dry skin Neuro General: alert, awake, oriented x3, moves all extremities, CN's II-XI intact bilaterally Extrem General: no pedal edema Psych Appearance: grossly normal Affect: normal affect Assessment AND Plan 1. Depression with anxiety F41.8 Plan Not properly managed. She is not very open to going on an antidepressant. She has been on lorazepam 1 mg 3 times daily chronically. Recently refilled however dose was reduced to 1 mg twice daily. Now advised to go on 0.5 mg twice daily with plans to taper off. Patient also advised to follow-up with psychiatry. Will readdress started on an antidepressant at next visit. 2. Electrolyte abnormality E87.8 Plan Patient with a chronic history of hypomagnesemia and hypokalemia. Possibly from GI losses as patient experiences bloating and diarrhea often. Will get a BMP and magnesium level today. Continue potassium and magnesium supplements. Will follow. Orders Orders: 3. Sinusitis J32.9 Plan She reports facial pressure, increased nasal congestion and postnasal drainage. No history of fever, chills, loss of appetite, persistent headaches or myalgia. Most likely viral sinusitis. Conservative measures recommended. Smoking cessation also encouraged. Advised to call the office if she notes worsening of the symptoms. 4. GERD (gastroesophageal reflux disease) K21.9 Plan Said to have improved since starting omeprazole. Continue current medication. Continue lifestyle modifications. Follow-up at next visit. This note was generated with InvenQuery dictation software. It may contain incorrect words, spelling, and punctuation that were not noted in checking the note before signing. Plan Detail Other Medications New: lorazepam 1/2 tab in the morning and 1 mg in the evening for0.5 mg PO BID PRN anxiety two weeks then take 0.5mg BID Earliest Fill date 06/22/2017 Changed: Follow Up 2 Months Coding Level of Care Code Off vis,est,level 4 Diagnoses Depression with anxiety F41.8 Electrolyte abnormality E87.8 Sinusitis J32.9 GERD (gastroesophageal reflux disease) K21.9 06/19/17 1657 <Electronically signed by Yosi Evans MD> Date Yosi Evans MD Cosigner Signature: Date (if applicable) CC: BASIC METABOLIC Collected: 06/12/2017 Status: F Source: [place] [facility] ([facility]) 11:52 AM [facility] REPOSITORY TYPE CODE TESTS RESULT OUT OF RANGE REFERENCE UNITS LAB L501.0100 74-106 mg/dL High GLU 111 Result Comment: Fasting Glucose result from 100 to 125 mg/dL suggests IMPAIRED HOMEOSTASIS per A.D.A. criteria. Please note revised GLUCOSE reference range effective 2017. LAB L501.1000 7-18 mg/dL High BUN 24 LAB L501.1100 0.55-1.02 mg/dL High CREAT,SERUM 1.17 Result Comment: The validity of the calculated GFR AND GFRAA in patients over 70 years has not been determined. Clinical correlation is essential. LAB L501.1110 >60 mL/min Low EST GFR 51 Result Comment: Non- GFR Calc LAB L501.1115 >60 mL/min Normal EST GFR - AA 62 Result Comment: GFR Calc LAB L501.1300 10-20 RATIO High BUN/CRE 20.5 LAB L501.2200 8.5-10.1 mg/dL CA Normal 8.9 LAB L501.5300 136-145 mmol/L NA Normal 140 LAB L501.5600 3.5-5.1 mmol/L K Normal 4.2 LAB L501.5900 98-107 mmol/L CL Normal 104 LAB L501.6100 21.0-32.0 mmol/L Normal CO2 31.0 LAB L501.6200 5-15 Normal GAP 5 Performed By: #### L500.2500, L501.5200 #### [place] [facility] [address] [place], [address] MAGNESIUM Collected: 06/12/2017 Status: F Source: [place] 11:52 AM [facility] REPOSITORY TYPE CODE TESTS RESULT OUT OF RANGE REFERENCE UNITS LAB L501.5200 1.6-2.6 mg/dL Normal MG 1.9 Result Comment: Please note revised Magnesium reference range effective 2017. Performed By: #### L500.2500, L501.5200 #### [facility] [address] [place], [address] OFFICE VISIT REPORT Observed: 05/19/2017 Status: F Source: [place] 2:57 PM [facility] REPOSITORY [facility] [address] [place] [address] OFFICE VISIT Date of Service: 05/18/17 MR#: [id number] Acct: [id number] Patient: LISA GARZA Rep #: [id number] : 1960 Provider: Stewart Diane MD Age/Sex: 56/F [place] [facility] [place] Status: Signed Intake Intake Visit Reasons: 10 day wound ck per MMM Allergies acetaminophen [From Tylenol] Allergy (Verified 04/23/17 09:32) Hives amoxicillin [Amoxicillin] Allergy (Verified 04/23/17 09:32) Hives amoxicillin trihydrate [From Trimox] Allergy (Verified 04/23/17 09:32) Hives codeine Allergy (Verified 04/23/17 09:32) Hives diazepam Allergy (Verified 04/23/17 09:32) Hives methocarbamol Allergy (Verified 04/23/17 09:32) Rash nabumetone Allergy (Verified 04/23/17 09:32) Rash Penicillins Allergy (Verified 04/23/17 09:32) Hives ranitidine HCl [From Zantac] Allergy (Verified 04/23/17 09:32) Hives ropinirole Allergy (Verified 04/23/17 09:32) Rash celecoxib [From Celebrex] Adverse Reaction (Verified 04/23/17 09:32) Nausea/Vom/Diarrhea ciprofloxacin Adverse Reaction (Verified 04/23/17 09:32) Itching citalopram hydrobromide [From Celexa] Adverse Reaction (Verified 04/23/17 09:32) Other cyclobenzaprine HCl [From Flexeril] Adverse Reaction (Verified 04/23/17 09:32) Nausea doxycycline Adverse Reaction (Verified 04/23/17 09:32) Other hydrocodone bitartrate [From Vicodin] Adverse Reaction (Verified 04/23/17 09:32) Nausea meloxicam Adverse Reaction (Verified 04/23/17 09:32) Other naproxen [From Naprosyn] Adverse Reaction (Verified 04/23/17 09:32) Nausea omeprazole Adverse Reaction (Verified 04/23/17 09:32) Nausea pramipexole Adverse Reaction (Verified 04/23/17 09:32) Other Medications Estradiol [Estrace] 0.5 mg PO DAILY 06/01/14 [History Confirmed 04/22/17] Furosemide [Lasix] 20 mg PO DAILY 06/01/14 [History Confirmed 04/22/17] Lorazepam [Ativan] 1 mg PO TID PRN PRN 06/01/14 [History Confirmed 04/22/17] Loratadine 10 mg PO DAILY 05/29/16 [History Confirmed 04/22/17] metoprolol tartrate 50 mg tablet 50 mg PO BID 02/13/17 [History Confirmed 04/22/17] lisinopril 20 mg tablet 20 mg PO BID tab 03/26/17 [History Confirmed 04/22/17] Calcium Carbonate 600 mg PO BID 04/06/17 [History Confirmed 04/22/17] Omeprazole 20 mg PO DAILY 04/06/17 [History Confirmed 04/22/17] Potassium Chloride [K-Dur] 20 meq PO QDAY 04/06/17 [History Confirmed 04/22/17] albuterol sulfate 2.5 mg/3 mL (0.083 %) solution for nebulization 2.5 mg INHALATION Q6H PRN #180 ml 04/08/17 [Rx Confirmed 04/22/17] magnesium oxide 400 mg tablet 400 mg PO QDAY #60 tab 04/13/17 [Rx Confirmed 04/22/17] Nursing Note Patient here for wound check of ICD gen change. Site is well approximated, no drainage and the blistering that was noted previously is gone, only one very small area (1/8 inch diameter) of dry skin at site. No redness, some fading faint ecchymosis above incision. Patient's temp 97.3 orally. Pt states long chain quiller tender but she is doing more activity now I.E. Vacuuming. Nilda Pino, who saw wound previously, agreed and confirmed for pt. that it is much improved. 05/19/17 1457 <Electronically signed by Stewart Diane MD> Date Stewart Diane MD Cosigner Signature: Date (if applicable) CC: Kendra Veliz OFFICE VISIT REPORT Observed: 05/12/2017 Status: F Source: [place] 11:[address] [place] [address] OFFICE VISIT Date of Service: 04/21/17 MR#: [id number] Acct: [id number] Patient: LISA GARZA Rep #: [id number] : 1960 Provider: Aliyah Aguilar Age/Sex: 56/F [place] [facility] [place] [place] Status: Signed Comments Summary Comments: Bi-VICD generator change written and verbal instructions given to pt including f/u wound check. Answered all questions and pt verbalized understanding. Device Device Date Interviewed: 04/21/17 Follow-up Location: in office Interview Reason: scheduled follow up J2Ee Software Engineer: Lovely Name: Jeferson MCCONNELL Model: N119 Serial #: [id number] Implant Date: 09/19/08 Year(s): 8 Implant Physician: Dr. Joanie Cortes Patient Characteristics Patient Substrate: Nonischemic cardiomyopathy NYHA CHG Class: I Ejection fraction %: 35 to 39 By: Echo Underlying rhythm: Sinus bradycardia Pacemaker Dependent: No Device Characteristics Device: Biventricular Type: Implantable defibrillator Remote Follow-Up: No Leads Lead #1 J2Ee Software Engineer Lead 1: Guidant Model Lead 1: 4136/53 Serial# Lead 1: [id number] Date Implanted Lead 1: 09/19/08 Position Lead 1: RA Lead #2 J2Ee Software Engineer Lead 2: Guidant Model Lead 2: 0184 Serial# Lead 2: [id number] Date Implanted Lead 2: 09/19/08 Position Lead 2: RV Lead #3 J2Ee Software Engineer Lead 3: Guidant Model Lead 3: 4592/90 Serial# Lead 3: [id number] Date Implanted Lead 3: 09/19/08 Position Lead 3: LV Tachy Settings VF Therapies VF Therapy Status On On On On On On Energy 41 41 41 41 41 41 Pathway ATP: During charging on FVT Therapies FVT Therapy Status off off off off off off VT Therapies FVT Therapy Status On/Off On/Off On/Off On/Off On/Off On/Off Comments: Edy Settings Edy Settings Pacemaker Mode DDD Output/Sensing V/PW (ms) 2.0/0.4 2.0/0.4 4.0/1.0 Sensitivity RA RV LV AGC 0.25 0.6 1.0 Comments: Billing Codes Nurse, Teaching, Wound Ck (no charge): Yes Assessment AND Plan Problems 1. Presence of automatic implantable cardioverter-defibrillator Z95.810 2. Non-ischemic cardiomyopathy I42.8 3. Chronic systolic heart failure I50.22 4. 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 05/08/17 0929 <Electronically signed by Aliyah Aguilar > Date Aliyah Aguilar 05/12/17 1105<Electronically signed by Stewart Diane MD> Rebeca Signature: Date (if applicable) Stewart Diane MD CC: OFFICE VISIT REPORT Observed: 04/28/2017 Status: F Source: [place] 9:38 PM [place] [address] [address] [place] [address] OFFICE VISIT Date of Service: 04/28/17 MR#: [id number] Acct: [id number] Patient: LISA GARZA Rep #: [id number] : 1960 Provider: Aliyah Aguilar Age/Sex: 56/F [place] [facility] [place] [place] Status: Signed Comments Summary Comments: Wound check: Pt called Dr. Brown last PM concerning wound site and discomfort experiencing. 5 days post Bi-VICD generator change wound check completed. Left pectoral pocket/incision with gauze pad over steri-strips. Removed all gauze and tape. Steri-strips intact w/o drainage noted. opened blisters noted at top of pocket site from opsite. No hematoma noted. Mild bruising noted. Pt afebrile T=97 degrees F temporally. Patient instructed to not use any tape, gauze, bandades or any type of adhesive on wound. Instructed to leave open to air to let blisters dry up, not to touch wound at all, look at it in mirror, let steri-strips curl up and fall off on own or wait until she comes in on 05/04/17 for repeat wound check and I will remove them. Instructed to take regular Tylenol every 4 hrs, not to exceed 8 tablets in 24 hrs for the next 2 days to stay ahead of the pain and discomfort. Pt experiencing a lot of discomfort at blister sites and in breast tissue. Also, instructed can use ice pack to put on breast and wound, 20 mins on several times a day to help with discomfort. Pt verbalized understanding. Device Device Date Interviewed: 04/28/17 Follow-up Location: in office Interview Reason: scheduled follow up J2Ee Software Engineer: [employer] Scientific Name: Inogen CUSTOM BIKE BUILDER-D IS-1/DF-1/IS-1 Model: G141 Serial #: [id number] Implant Date: 04/23/17 Year(s): 0 Implant Physician: Dr Nakul Abdalla[facility] Patient Characteristics Patient Substrate: Nonischemic cardiomyopathy (dilated) Ejection fraction %: 35 to 39 By: Echo Pacemaker Dependent: No Device Characteristics Device: Biventricular Type: Implantable defibrillator Remote Follow-Up: No Device Physical Exam Yes Steri-strips intact, No drainage and Mild ecchymosis Leads Lead #1 J2Ee Software Engineer Lead 1: Guidant Model Lead 1: 4136/53 Serial# Lead 1: [id number] Date Implanted Lead 1: 09/19/08 Position Lead 1: RA Lead #2 J2Ee Software Engineer Lead 2: Guidant Model Lead 2: 0184 Serial# Lead 2: [id number] Date Implanted Lead 2: 09/19/08 Position Lead 2: RV Lead #3 J2Ee Software Engineer Lead 3: Guidant Model Lead 3: 4592/90 Serial# Lead 3: [id number] Date Implanted Lead 3: 09/19/08 Position Lead 3: LV Tachy Settings VF Therapies VF Therapy Status On On On On On On Energy 41 41 41 41 41 41 Pathway ATP: During charging on FVT Therapies FVT Therapy Status off off off off off off VT Therapies FVT Therapy Status On/Off On/Off On/Off On/Off On/Off On/Off Comments: Eyd Settings Edy Settings Pacemaker Mode DDD Output/Sensing V/PW (ms) 2.0/0.4 2.0/0.4 4.0/1.0 Sensitivity RA RV LV AGC 0.25 0.6 1.0 Comments: Billing Codes Nurse, Teaching, Wound Ck (no charge): Yes Assessment AND Plan Problems 1. Dizziness and giddiness R42 2. Shortness of breath R06.02 3. 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 4. Presence of automatic implantable cardioverter-defibrillator Z95.810 04/28/17 1619 <Electronically signed by Aliyah Aguilar > Date Aliyah Aguilar 04/28/17 2138<Electronically signed by Marcelino Brown MD> Cosigner Signature: Date (if applicable) Marcelino Brown MD CC: CARDIOLOGY VISIT Observed: 04/23/2017 Status: F Source: [place] REPORT 4:54 PM [facility] REPOSIT[facility] [address] [place], [place] [address]. [address] [place] [address] OFFICE VISIT Date of Service: 04/21/17 MR#: [id number] Acct: [id number] Name: LISA GARZA Rep #: [id number] : 1960 Provider: SAMMY Gooden Age/Sex: 56/F [place] [facility] [place] [place] Status: Signed HPI HPI Details: LISA GARZA, is a 56 F who presents to the office today for a cardiovascular follow-up. She has a history of nonischemic cardiomyopathy status post biventricular ICD placement 2012, hypertension, and tobacco abuse. She has been evaluated by PCP for low magnesium level. She underwent transfusions for this. As a results her magnesium has improved and she states that her right lower leg swelling and hand swelling resolved. Pt. denies chest, arm, jaw, or neck discomfort. Her exercise tolerance is stable. Pt. denies symptoms of CHF, palpitations, lightheadedness, dizziness, near syncope, or syncopal episodes. Pt. denies edema or claudication issues. Pt. denies orthopnea, PND, fever, chills, blood in urine, blood in stool, myalgia, or unexplainable fatigue. Echocardiogram from July 2014 showed and ejection fraction 40%, mild mitral valve insufficiency, and mild to moderate tricuspid valve insufficiency. Heart catheterization from December 2005 showed a left main free of significant plaque, LAD with no significant stenosis, LCx with no significant stenosis, and an RCA that was dominant with with 30% stenosis but is thought to be possibly related to spasm. Based on results medical therapy was recommended. Intake Vital Signs04/21/17 Height 5 ft 5 in 04/21/17 Weight: 161 lb 04/21/17 Body Mass Index (BMI) 26.8 04/21/17 Blood Pressure 110/64 04/21/17 Blood Pressure Location Lt brachial Intake Visit Reasons: gen change 2-15 w/Rm; Muriel @ 3:30 Allergies acetaminophen [From Tylenol] Allergy (Verified 02/13/17 11:47) Hives amoxicillin [Amoxicillin] Allergy (Verified 02/13/17 11:47) Hives amoxicillin trihydrate [From Trimox] Allergy (Verified 02/13/17 11:47) Hives codeine Allergy (Verified 02/13/17 11:47) Hives diazepam Allergy (Verified 02/13/17 11:47) Hives methocarbamol Allergy (Verified 02/13/17 11:47) Rash nabumetone Allergy (Verified 02/13/17 11:47) Rash Penicillins Allergy (Verified 02/13/17 11:47) Hives ranitidine HCl [From Zantac] Allergy (Verified 02/13/17 11:47) Hives ropinirole Allergy (Verified 02/13/17 11:47) Rash celecoxib [From Celebrex] Adverse Reaction (Verified 02/13/17 11:47) Nausea/Vom/Diarrhea ciprofloxacin Adverse Reaction (Verified 02/13/17 11:47) Itching citalopram hydrobromide [From Celexa] Adverse Reaction (Verified 02/13/17 11:47) Other cyclobenzaprine HCl [From Flexeril] Adverse Reaction (Verified 02/13/17 11:47) Nausea doxycycline Adverse Reaction (Verified 02/13/17 11:47) Other hydrocodone bitartrate [From Vicodin] Adverse Reaction (Verified 02/13/17 11:47) Nausea meloxicam Adverse Reaction (Verified 02/13/17 11:47) Other naproxen [From Naprosyn] Adverse Reaction (Verified 02/13/17 11:47) Nausea omeprazole Adverse Reaction (Verified 02/13/17 11:47) Nausea pramipexole Adverse Reaction (Verified 02/13/17 11:47) Other Medications Estradiol [Estrace] 0.5 mg PO DAILY 06/01/14 [History Confirmed 04/06/17] Furosemide [Lasix] 20 mg PO DAILY 06/01/14 [History Confirmed 04/06/17] Lorazepam [Ativan] 1 mg PO TID PRN PRN 06/01/14 [History Confirmed 04/06/17] Loratadine 10 mg PO DAILY 05/29/16 [History Confirmed 04/06/17] metoprolol tartrate 50 mg tablet 50 mg PO BID 02/13/17 [History Confirmed 04/06/17] lisinopril 20 mg tablet 20 mg PO BID tab 03/26/17 [History Confirmed 04/06/17] Calcium Carbonate 600 mg PO BID 04/06/17 [History Confirmed 04/06/17] Omeprazole 20 mg PO DAILY 04/06/17 [History Confirmed 04/06/17] Potassium Chloride [K-Dur] 20 meq PO QDAY 04/06/17 [History Confirmed 04/06/17] albuterol sulfate 2.5 mg/3 mL (0.083 %) solution for nebulization 2.5 mg INHALATION Q6H PRN #180 ml 04/08/17 [Rx] magnesium oxide 400 mg tablet 400 mg PO QDAY #60 tab 04/13/17 [Rx] Ejection fraction %: 40 to 44 PFSH Medical History Alcoholic cardiomyopathy (Chronic) Dizziness and giddiness (Chronic) Shortness of breath (Chronic) Family history of CVA (Chronic) Family history of hyperlipidemia (Chronic) Family history of hypertension (Chronic) COPD (chronic obstructive pulmonary disease) (Chronic) Cardiomyopathy, dilated (Chronic) Diabetes (Chronic) Hypertension (Chronic) Systolic heart failure (Chronic) Non-ischemic cardiomyopathy (Chronic) COPD (chronic obstructive pulmonary disease) (Chronic) Cancer of vulva (Chronic) GERD (gastroesophageal reflux disease) (Chronic) Nicotine dependence in remission (Chronic) Surgical History Presence of automatic implantable cardioverter-defibrillator (Chronic 09/19/08) H/O: hysterectomy (Chronic) Hx of cholecystectomy (Chronic) Status post left heart catheterization (Chronic 12/31/05) excision of cancer of vulva (Chronic) Family History Father CVA (cerebral vascular accident) Hypertension Diabetes Mother Diabetes Hypertension Social History Smoking Status: Current every day smoker alcohol intake: former substance use type: does not use what type of physical activity do you participate in: none ROS Const Const: Positive for fatigue (waxes and wanes) and other (some warm spells); negative for weakness, body ache, fever(s) or chills ENT ENT: Negative for dizziness Cardio Chest Pain: No Palpitations: Positive for No Edema: None Muscle aches with walking: None Resp Respiratory: Negative for SOB with activity, SOB at rest, SOB orthopnea\SOB lying down or paroxysmal nocturnal dyspnea GI GI: Negative nausea, black,tarry stools, bright, red blood in stools or vomiting blood/hematemesis : Negative for hematuria or frequent nighttime urination/ nocturia Musc Musc: Negative for muscle aches/ myalgia Neuro Neuro: Negative for weakness, Negative for dizziness, Negative for lightheadedness, Negative for near syncope, Negative for syncope, Negative for orthostatic symptoms Endo Endo: Positive for fatigue (waxes and wanes) Cardiology Exam Const Appearance: cooperative, healthy appearing, comfortable, no acute distress and other Orientation: alert, awake and oriented x3 Head Head: normal to inspection Mouth: oral mucosae normal Neck Neck: no JVD and normal visual inspection Carotids: normal carotid upstroke Chest Chest inspection: normal inspection of the chest and normal respiratory effort Auscultation: Bilateral: Clear to Auscultation Cardio Rate: regular rate Rhythm: regular rhythm Heart sounds: S1 normal and S2 normal; negative rub or gallop GI GI: normal to inspection Neuro General: alert, awake, oriented x3 and CN's II-XI intact bilaterally Skin Skin: no rashes or lesions noted Extremities Pulses: Normal: Right Posterior Tibial Pulse, Left Posterior Tibial Pulse, Right Radial Pulse, Left Radial Pulse Lower Extremity Edema: None: Bilateral Psych Psychological: normal affect Assessment AND Plan 1. ICD (implantable cardioverter-defibrillator) in place Z95.810 Plan - CELINE Perry Her most recent pacemaker evaluation from March 2017 showed that her battery has achieved SUZI. She will be undergoing a generator change with Dr. Abdalla on 04/23/2017. She will continue to follow-up with pacemaker clinic after generator change for wound evaluation. We will continue to have scheduled/routine visits. Orders Orders: 2. Nonischemic cardiomyopathy I42.8 Plan - CELINE Perry Patient's most recent echocardiogram is noted above. Her activity level has remained stable she denies any shortness of breath or lower extremity pedal edema. We will continue to monitor this. We will continue current medications which include beta-laura, CHARANJIT inhibitor, and diuretic. Orders Orders: 3. Essential hypertension I10 CELINE Crowe Patient's blood pressure is well-controlled today in the office. We will continue to monitor this. We will not make any medication regimen changes. Orders Orders: 4. Type 2 diabetes mellitus without complication, without long-term current use of insulin E11.9 Plan - CELINE Perry Patient will continue to follow-up with primary care physician for this. 5. Fatigue R53.83 CELIEN Crowe She states this is improved since last office visit. We will continue to monitor this. We will not make any medication regimen changes. Plan Detail Additional Comments - CELINE Perry Patient will keep August 2017 with [facility] nurse practitioner for on going evaluation. Discussed the above patient with Dr. Diane, he agrees with the plan of care. Thank you for allowing us to participate in the patients plan of care, if you have any questions please do not hesitate to call. This note was generated using a voice recognition system and there may be incorrect words, spelling or punctuation that were not noted when reviewing the office note prior to saving. Coding Level of Care Code Off vis,est,level 3 Diagnoses ICD (implantable cardioverter-defibrillator) in place Z95.810 Nonischemic cardiomyopathy I42.8 Essential hypertension I10 Hypertension type: essential hypertension Type 2 diabetes mellitus without complication, without long- term current use of insulin E11.9 Diabetes mellitus type: type 2 Diabetes mellitus complication status: without complication Diabetes mellitus terminal manager insulin use: without fpc use Fatigue R53.83 Coding Level of Care Code Off vis,est,level 3 Diagnoses ICD (implantable cardioverter-defibrillator) in place Z95.810 Nonischemic cardiomyopathy I42.8 Essential hypertension I10 Hypertension type: essential hypertension Type 2 diabetes mellitus without complication, without long- term current use of insulin E11.9 Diabetes mellitus type: type 2 Diabetes mellitus complication status: without complication Diabetes mellitus fpc insulin use: without fpc use Fatigue R53.83 04/21/17 1705 <Electronically signed by Rudolph MCFADDENC> Date Rudolph MCFADDENC 04/23/17 1654<Electronically signed by Stweart Diane MD> Cosigner Signature: Date (if applicable) Stewart Diane MD CC: Yosi Evans MD OPERATIVE REPORT Observed: 04/23/2017 Status: F Source: [place] 12:31 PM [facility] Medical Records Department [address] [place] [address] Operative Report 04/23/17 1230 MR#: [id number] Acct: [id number] Name: LISA GARZA Rep #: [id number] : 1960 56 From: Nakul Abdalla MD PCP: Yosi Evans MD Status: REG SDC Y Location: [facility] Operative Report Date of Procedure: 04/23/17 Preoperative diagnosis is device at end of life for normal battery depletion. Postoperative diagnosis same as above. After informed consent and IV antibiotics the patient was brought to the [facility] and the skin over the device was prepped and draped in the usual sterile manner. Intermittent boluses of Versed, fentanyl and propofol were used for sedation and analgesia as well as 1% subcutaneous lidocaine. An incision was made over the pre-existing device. Using blunt and Bovie dissection the pocket was opened and the device was removed. Careful attention was paid not to injure the pre-existing leads. The leads were removed from the device header and they were interrogated. There is normal lead function. Hemostasis was obtained. The pocket was flushed with antibiotic solution. The sponge and needle count were correct. The new device was brought to the field. The leads were placed in the appropriate position in the header and secured by the set screw. The leads and the device were then placed in the pocket. The device is a BiV AV ICD with a unipolar LV lead. The pocket was closed with a deep layer of running 2-0 Vicryl, a superficial layer of running 4-0 Vicryl, skin with Steri-Strips which were covered with a rolled 4 x 4 and Tegaderm. Patient left the room with the device programmed to proper parameters and there were no complications. All lead parameters were tested and found to be functionally normal. Lead and device serial and model numbers are available in the chart documents provided by the device company aircraft sales representative procedure summary. 04/23/17 1231 <Electronically signed by Nakul Abdalla MD> Date Nakul Abdalla MD CC: Yosi Evans MD; Nakul Abdalla MD Signed CHEST PA AND LATERAL Observed: 04/21/2017 Status: F Source: [place] 3:53 PM [facility]POS[facility] Imaging Services [address] [place] [address] Chest PA and Lateral MR#: [id number] Acct: [id number] Name: LISA GARZA Rep #: [id number] : 1960 F 56 From: Tyron Tena MD PCP: Yosi Evans MD Status: [facility] [place] Study: Chest PA and Lateral Date of Exam: 04/21/17 Exam# [id number] Ordering Dr: Stewart Diane MD STUDY: X-RAY CHEST REASON FOR EXAM: Female, 56 years old. Pacemaker generator change. TECHNIQUE: Frontal and lateral views of the chest. COMPARISON: 09/30/2016. FINDINGS: The lungs are clear and expanded. There is no demonstrated pleural abnormality. Normal size heart. Pacemaker leads terminate in the right atrium, right ventricle and coronary sinus. Normal mediastinum and lele. Normal visualized pulmonary arteries. Normal visualized aortic arch and descending thoracic aorta. Normal visualized thoracic spine. Normal visualized ribs, clavicles, and shoulders. There is no demonstrated abnormality of the visualized soft tissue structures of the upper abdomen. RAD/Chest PA and Lateral IMPRESSION: No evidence for acute chest disease. Electronically Signed: Tyron Tena MD at 23:46 EST , Service support , CC: Stewart Diane MD; Yosi Evans MD Molder Closed Molds: Signed 12 LEAD EKG PERFORMED Observed: 04/21/2017 Status: F [place] [facility] [place]:28 PM [facility] [address] [place] [address] 12 Lead EKG performed [place] [facility] [place] 04/21/17 1526 MR#: [id number] Acct: [id number] Name: LISA GARZA Rep #: [id number] : 1960 56 From: Rudolph Gooden HOMOGENIZER OPERATOR-C Attending Dr: Rudolph Gooden NP Status: DEP AMB Ordering Dr: Rudolph Gooden Date: 04/21/17 [place] [facility] [place]: F C Admitted: BMS/12 Lead EKG performed by [facility] [place] ECG Report Interpretation Electronic ventricular pacemaker Pacemaker ECG, No further analysis Electronically signed on 05/05/2017 at 19:49 by Stewart Diane 05/05/17 1950 Date Rudolph BERGER CC: Yosi Evans MD Date Dictated: 04/21/171525 Date Transcribed: 04/21/171525 Molder Closed Molds: ELOISE Signed CBC-COMPLETE BLOOD CNT Collected: 04/21/2017 Status: F Source: [place] NO DIFF 2:44 PM [facility] TYPE CODE TESTS RESULT OUT OF RANGE REFERENCE UNITS LAB L100.1000 4.4-11.0 K/mm3 High WBC 14.2 LAB L100.1200 4.2-5.4 M/mm3 Normal RBC 5.36 LAB L100.1300 12.0-15.0 g/dl High HGB 16.9 LAB L100.1400 37-47 % High HCT 50.1 LAB L100.1500 81-99 fL Normal MCV 93.5 LAB L100.1600 27.0-32.0 pg Normal MCH 31.5 LAB L100.1700 32-36 g/gl Normal MCHC 33.7 LAB L100.1810 11.6-14.6 % Normal RDW CV 12.9 LAB L100.1820 35.1-43.9 fl High RDW SD 44.1 LAB L100.1900 150-450 K/mm3 Normal PLT 264 LAB L100.2000 6.2-12.0 fl Normal MPV 11.6 Performed By: #### L100.0500, L300.3900 #### [facility] [address] [place], [place], [address] PROTHROMBIN TIME W/INR Collected: 04/21/2017 Status: F Source: [place] 2:44 PM [facility] TYPE CODE TESTS RESULT OUT OF RANGE REFERENCE UNITS LAB L300.4150 11.7-14.9 SECONDS Normal PROTIME 13.8 LAB L300.4200 Normal INR 1.1 Performed By: #### L100.0500, L300.3900 #### [facility] [address] [facility] [facility] [place], [place], [id number] BASIC METABOLIC Collected: 04/21/2017 Status: F Source: [place] PROFILE (BMP) 2:44 PM [facility] TYPE CODE TESTS RESULT OUT OF RANGE REFERENCE UNITS LAB L501.0100 74-106 mg/dL High GLU 120 Result Comment: Fasting Glucose result from 100 to 125 mg/dL suggests IMPAIRED HOMEOSTASIS per A.D.A. criteria. Please note revised GLUCOSE reference range effective 2017. LAB L501.1000 7-18 mg/dL High BUN 22 LAB L501.1100 0.55-1.02 mg/dL High CREAT,SERUM 1.04 Result Comment: The validity of the calculated GFR AND GFRAA in patients over 70 years has not been determined. Clinical correlation is essential. LAB L501.1110 >60 mL/min Low EST GFR 58 Result Comment: Non- GFR Calc LAB L501.1115 >60 mL/min Normal EST GFR - AA 71 Result Comment: GFR Calc LAB L501.1300 10-20 RATIO High BUN/CRE 21.2 LAB L501.2200 8.5-10.1 mg/dL CA Normal 9.2 LAB L501.5300 136-145 mmol/L Low NA 135 LAB L501.5600 3.5-5.1 mmol/L K Normal 4.9 LAB L501.5900 98-107 mmol/L CL Normal 102 LAB L501.6100 21.0-32.0 mmol/L Normal CO2 26.0 LAB L501.6200 5-15 Normal GAP 7 Performed By: #### L500.2500, L400.0001, L501.5200 #### [facility] [address] [place], [address] URINALYSIS, COMPLETE Collected: 04/21/2017 Status: F Source: [place] 2:44 PM [facility] Order Comment: How was Urine Obtained? WOODENWARE ASSEMBLER TO SPECIFY TYPE CODE TESTS RESULT OUT OF RANGE REFERENCE UNITS LAB L400.3000 Yellow COLOR Normal Yellow LAB L400.3050 Clear Normal CLARITY Sl. Cloudy LAB L400.3200 Normal mg/dl Normal GLUCOSE, UR Normal LAB L400.3300 Negative mg/dL Normal BILIRUBIN URINE Negative LAB L400.3400 Negative mg/dl Normal KETONE UR Negative LAB L400.3465 1.002-1.030 Normal SP.GR. DIPSTX 1.015 LAB L400.3550 5.0 - 8.0 pH UR Normal 5.0 LAB L400.3600 Negative mg/dl PROT Normal DIPSTX Negative LAB L400.3700 Normal mg/dl Normal UROBILI Normal LAB L400.3750 Negative Normal NITRITE UR Negative LAB L400.3780 Negative /ul Normal OCCULT BLOOD-UR Negative LAB L400.3800 Negative /ul High LEUK 25 ESTERASE LAB L400.4050 0-5 /hpf WBC Normal 0-5 SEEN LAB L400.4100 0-5 /hpf 0 Normal RBC-UA SEEN LAB L400.4150 5-10 /hpf SQUAM Normal EPI 10-25 SEEN LAB L400.4300 None Seen /hpf 0 Normal BACTERIA SEEN LAB L400.4350 <or=2+ /hpf 0 Normal MUCUS, URINE SEEN Performed By: #### L500.2500, L400.0001, L501.5200 #### [facility] [address] [place], [place], [address] MAGNESIUM Collected: 04/21/2017 Status: F Source: [place] 2:44 PM [facility] TYPE CODE TESTS RESULT OUT OF RANGE REFERENCE UNITS LAB L501.5200 1.6-2.6 mg/dL Normal MG 1.7 Result Comment: Please note revised Magnesium reference range effective 2017. Performed By: #### L500.2500, L400.0001, L501.5200 #### [facility] [address] [place], [place], [address] OFFICE VISIT REPORT Observed: 04/10/2017 Status: F Source: [place] 3:30 PM [facility] [address] [facility] [address] [place] [address] OFFICE VISIT Date of Service: 04/02/17 MR#: [id number] Acct: [id number] Patient: LISA GARZA Rep #: [id number] : 1960 Provider: Aliyah Aguilar Age/Sex: 56/F [place] [facility] [place] [place] Status: Signed Comments Summary Comments: Bi-VICD Evaluation: Patient had called in complaining of ringing in her ears and was wondering if it could be related to medications. Pt scheduled for device check d/t approaching SUZI. Interrogation shows device reached SUZI on 03/26/17. Explained to pt. the ringing she was hearing was probably SUZI tones from device. Programmed Beep when explant is indicated off. Pt scheduled for Bi-VICD generator change with Dr. Abdalla on 04/23/17. Pt scheduled for o.v to update H AND P and teaching. Device Device Date Interviewed: 04/02/17 Follow-up Location: in office Interview Reason: patient request J2Ee Software Engineer: Lovely Name: Jeferson MCCONNELL Model: N119 Serial #: [id number] Implant Date: 09/19/08 Year(s): 8 Implant Physician: Dr. Joanie Cortes Patient Characteristics Patient Substrate: Nonischemic cardiomyopathy Ejection fraction %: 35 to 39 By: Echo Underlying rhythm: Sinus bradycardia Pacemaker Dependent: No Device Characteristics Device: Biventricular Type: Implantable defibrillator Remote Follow-Up: No Device Physical Exam Yes Incision well healed Leads Lead #1 J2Ee Software Engineer Lead 1: Hochy eto Model Lead 1: 4136/53 Serial# Lead 1: [id number] Date Implanted Lead 1: 09/19/08 Position Lead 1: RA Lead #2 J2Ee Software Engineer Lead 2: Radiation Monitoring Devicesant Model Lead 2: 0184 Serial# Lead 2: [id number] Date Implanted Lead 2: 09/19/08 Position Lead 2: RV Lead #3 J2Ee Software Engineer Lead 3: Guidant Model Lead 3: 4592/90 Serial# Lead 3: [id number] Date Implanted Lead 3: 09/19/08 Position Lead 3: LV Diagnostics Pacing % RA Pacin % RV Pacin % LV Pacin Mode Switching Total # Episodes: 0 % Mode switched: 0 Arrhythmias VF Episodes: 0 Fast VT Episodes: 0 Slow VT Episodes: 0 Non-Sust Episodes: 0 Measurements Battery Charge Time (Sec): 13.2 Battery Status: SUZI RA Measurements Signal Amplitude (mV): 1.2 Impedance (Ohms): 756 RV Measurements Signal Amplitude (mV): 24 Impedance (Ohms): 668 LV Measurements Signal Amplitude (mV): 8.9 Impedance (Ohms): 544 Tachy Settings VF Therapies VF Therapy Status On On On On On On Energy 41 41 41 41 41 41 Pathway ATP: During charging on FVT Therapies FVT Therapy Status off off off off off off VT Therapies FVT Therapy Status On/Off On/Off On/Off On/Off On/Off On/Off Comments: Edy Settings Edy Settings Pacemaker Mode DDD Output/Sensing V/PW (ms) 2.0/0.4 2.0/0.4 4.0/1.0 Sensitivity RA RV LV AGC 0.25 0.6 1.0 Comments: Billing Codes ICD Device Billing: ICD Dev Prog Eval, Multi Assessment AND Plan Problems 1. Presence of automatic implantable cardioverter-defibrillator Z95.810 2. Chronic systolic heart failure I50.22 3. Non-ischemic cardiomyopathy I42.8 04/06/17 0809 <Electronically signed by Aliyah Aguilar > Date Aliyah Aguilar 04/10/17 1530<Electronically signed by Stewart Diane MD> Cosign Signature: Date (if applicable) Stewart Diane MD CC: MAGNESIUM Collected: 04/08/2017 Status: F Source: [place] 12:26 PM [facility] REPOSITORY TYPE CODE TESTS RESULT OUT OF RANGE REFERENCE UNITS LAB L501.5200 1.6-2.6 mg/dL Normal MG 2.1 Result Comment: Please note revised Magnesium reference range effective 2017. Performed By: #### L501.5200 #### [place] [facility] [place], [address] BASIC METABOLIC Collected: 04/02/2017 Status: F Source: [place] PROFILE (BMP) 1:26 PM [facility] REPOSITORY TYPE CODE TESTS RESULT OUT OF RANGE REFERENCE UNITS LAB L501.0100 70-110 mg/dL Normal GLU 108 LAB L501.1000 7-18 mg/dL Normal BUN 10 LAB L501.1100 0.55-1.02 mg/dL Normal 0.81 CREAT,SERUM Result Comment: The validity of the calculated GFR AND GFRAA in patients over 70 years has not been determined. Clinical correlation is essential. LAB L501.1110 >60 mL/min Normal EST GFR 78 Result Comment: Non- GFR Calc LAB L501.1115 >60 mL/min Normal EST GFR - AA 94 Result Comment: GFR Calc LAB L501.1300 10-20 RATIO Normal BUN/CRE 12.3 LAB L501.2200 8.5-10.1 mg/dL Low CA 8.0 LAB L501.5300 136-145 mmol/L NA Normal 140 LAB L501.5600 3.5-5.1 mmol/L K Normal 3.7 LAB L501.5900 98-107 mmol/L CL Normal 102 LAB L501.6100 21.0-32.0 mmol/L Normal CO2 32.0 LAB L501.6200 5-15 Normal GAP 6 Performed By: #### L500.2500, L501.5200 #### [facility] [address] [place], [place], [address] MAGNESIUM Collected: 04/02/2017 Status: F Source: [place] 1:26 PM [facility] REPOSITORY TYPE CODE TESTS RESULT OUT OF RANGE REFERENCE UNITS LAB L501.5200 1.6-2.6 mg/dL Low alert MG 0.9 Result Comment: Please note revised Magnesium reference range effective 2017. Critical Result(s) Called at: 15:06:06 04/02/2017 by: Pat Chan v.myers Performed By: #### L500.2500, L501.5200 #### [facility] [address] [place], [address] INTERNAL MEDICINE Observed: 03/30/2017 Status: F Source: [place] OFFICE VISIT 8:20 AM [facility] Internal Medicine [address] [place] [address] OFFICE VISIT Date of Service: 03/26/17 MR#: [id number] Acct: [id number] Name: LISA GARZA Rep #: [id number] : 1960 Provider: Yosi Evans MD Age/Sex: 56/F [place] [facility] [place]: Signed Intake Vital Signs03/26/17 Height 5 ft 5 in 03/26/17 Weight: 169 lb 03/26/17 Body Mass Index (BMI) 28.1 03/26/17 Blood Pressure 122/73 Intake Visit Reasons: EST CARE Chief Complaint: establsih care Is patient in pain?: No Allergies acetaminophen [From Tylenol] Allergy (Verified 02/13/17 11:47) Hives amoxicillin [Amoxicillin] Allergy (Verified 02/13/17 11:47) Hives amoxicillin trihydrate [From Trimox] Allergy (Verified 02/13/17 11:47) Hives codeine Allergy (Verified 02/13/17 11:47) Hives diazepam Allergy (Verified 02/13/17 11:47) Hives methocarbamol Allergy (Verified 02/13/17 11:47) Rash nabumetone Allergy (Verified 02/13/17 11:47) Rash Penicillins Allergy (Verified 02/13/17 11:47) Hives ranitidine HCl [From Zantac] Allergy (Verified 02/13/17 11:47) Hives ropinirole Allergy (Verified 02/13/17 11:47) Rash celecoxib [From Celebrex] Adverse Reaction (Verified 02/13/17 11:47) Nausea/Vom/Diarrhea ciprofloxacin Adverse Reaction (Verified 02/13/17 11:47) Itching citalopram hydrobromide [From Celexa] Adverse Reaction (Verified 02/13/17 11:47) Other cyclobenzaprine HCl [From Flexeril] Adverse Reaction (Verified 02/13/17 11:47) Nausea doxycycline Adverse Reaction (Verified 02/13/17 11:47) Other hydrocodone bitartrate [From Vicodin] Adverse Reaction (Verified 02/13/17 11:47) Nausea meloxicam Adverse Reaction (Verified 02/13/17 11:47) Other naproxen [From Naprosyn] Adverse Reaction (Verified 02/13/17 11:47) Nausea omeprazole Adverse Reaction (Verified 02/13/17 11:47) Nausea pramipexole Adverse Reaction (Verified 02/13/17 11:47) Other Medications Albuterol Aerosols [Ventolin Aerosols] 2.5 mg INHALATION Q4H PRN PRN 06/01/14 [History Confirmed 02/13/17] Estradiol [Estrace] 0.5 mg PO DAILY 06/01/14 [History Confirmed 03/26/17] Furosemide [Lasix] 20 mg PO DAILY 06/01/14 [History Confirmed 03/26/17] Lorazepam [Ativan] 1 mg PO TID PRN PRN 06/01/14 [History Confirmed 03/26/17] Loratadine 10 mg PO DAILY 05/29/16 [History Confirmed 03/26/17] metoprolol tartrate 50 mg tablet 50 mg PO BID 02/13/17 [History Confirmed 03/26/17] lisinopril 20 mg tablet 20 mg PO ONCE tab 03/26/17 [History Confirmed 03/26/17] magnesium 64 mg (magnesium chloride) tablet,delayed release 64 mg PO BID tab 03/26/17 [History Confirmed 03/26/17] magnesium oxide 400 mg tablet 400 mg PO BID #30 tab 03/26/17 [Rx] omeprazole 40 mg capsule,delayed release 40 mg PO QDAY #60 cap 03/26/17 [Rx Confirmed 03/26/17] potassium chloride ER 20 mEq tablet,extended release(part/cryst) 40 meq PO QDAY #60 tab 03/26/17 [Rx] venlafaxine ER 37.5 mg capsule,extended release 24 hr 37.5 mg PO QDAY #60 cap 03/26/17 [Rx Confirmed 03/26/17] PFSH Medical History Diabetes (Chronic) Hypertension (Chronic) Systolic heart failure (Chronic) Non-ischemic cardiomyopathy (Chronic) COPD (chronic obstructive pulmonary disease) (Chronic) Cancer of vulva (Chronic) GERD (gastroesophageal reflux disease) (Chronic) Nicotine dependence in remission (Chronic) Surgical History Presence of automatic implantable cardioverter-defibrillator (Chronic 09/19/08) H/O: hysterectomy (Chronic) Hx of cholecystectomy (Chronic) Status post left heart catheterization (Chronic 12/31/05) excision of cancer of vulva (Chronic) Family History Father CVA (cerebral vascular accident) Hypertension Diabetes Mother Diabetes Hypertension Social History Smoking Status: Current every day smoker alcohol intake: former substance use type: does not use what type of physical activity do you participate in: none HPI EST CARE: Chief Complaint: establish care Details: LISA GARZA, is a 56yo F who presents to the office today to establish care. She had previously followed up with Dr. Dugan. She has no acute complaints at this time however is concerned about her anxiety/depression. She has had a history of anxiety and depression for many years and has been on lorazepam 1 mg twice daily since 1998. She was attempted on Celexa however this was discontinued after she broke out in [employer]. She has subsequently not tried anything else. She denies any suicidal or homicidal ideations or attempts at this time. She also has a history of reflux and is currently on 20 mg of omeprazole daily. She takes this medication inconsistently and typically takes her medication with coffee. There is no change in her bowel habit and no blood in her stool. ROS Const Constitutional: No weight change, body ache, chills, fatigue, sleep problems, fever(s), change in appetite, snoring, weakness, frequent falls, headache(s) or excessive sweating Eyes Eyes: No change in vision or eye pain ENT ENT: No headache(s), abnormal hearing, ear pain, tinnitus, nasal congestion, sore throat or neck pain Resp Respiratory: Positive for cough Cough: Yes non-productive; no snoring or wheezing Cardio Cardiology: No excessive sweating, chest pain at rest, chest pain with exertion, shortness of breath, dyspnea on exertion, palpitations, orthopnea or lightheadedness Gastro GI: No abdominal pain, change in bowel habits, constipation, diarrhea, vomiting, nausea/dyspepsia or cramping Musc Musculoskeletal: No neck pain, abnormal walking, joint pain, back pain, limited range of motion or numbness Skin Skin: No redness, dry skin, itching, lesions, wounds or rash Neuro Neurology: Positive for dizziness; no weakness, frequent falls, headache(s), abnormal hearing, abnormal walking, numbness, abnormal speech or memory loss Psych Psychiatric: No change in appetite, No memory loss, Positive for anxiety, Positive for depression, No Thoughts of harming yourself/Others Endo Endocrine: No fatigue, excessive sweating, cold intolerance, increased thirst/drinking, heat intolerance, flushing or increased hunger Aller/Imm Allergy/Immunologic: No wheezing, itchy eyes, hives or seasonal allergy symptoms Keith/Lymp Hematologic/Lymphatic: No easy bleeding, easy bruising or enlarged lymph nodes Exam Const General: cooperative, no acute distress Orientation: alert, awake, oriented x3 HENMT Head: atraumatic, normocephalic Resp Auscultation: Bilateral: Diminished Lung Sounds GI Other: Epigastric tenderness. Neuro General: alert, awake, oriented x3, CN's II-XI intact bilaterally, moves all extremities Psych Affect: anxious affect, sad Other: Alternating anxious/sad/normal affect. Assessment AND Plan 1. Depression with anxiety F41.8 Plan She is currently just on lorazepam 1 mg twice daily. She has been tried on Celexa in the past however she discontinued it due to intolerable side effects. Will commence patient on venlafaxine 37.5 mg daily and titrate as tolerated. Referred to the counseling center. Follow-up in 6 weeks. Orders Referrals: 2. GERD (gastroesophageal reflux disease) K21.9 Plan She also has a history of hiatal hernia. Currently on omeprazole 20 mg daily. She is taking this inconsistently. Increased to 40 mg daily due to persistent symptoms. Patient advised to take it first thing in the morning 30 minutes before breakfast with water. Follow-up at next visit. 3. Electrolyte abnormality E87.8 Plan She reports a prior history of electrolyte abnormalities. She is currently on potassium and magnesium pills. Will get a BMP. Follow-up with results. 4. Diabetes E11.9 Plan Patient has a reported history of diabetes which she denies. Will get an A1c. Follow-up with results. This note was generated with DrDoctoration software. It may contain incorrect words, spelling, and punctuation that were not noted in checking the note before signing. Orders Orders: Plan Detail Other Orders Orders: Other Medications New: omeprazole swallow whole; do not crush, chew, dissolve, or cut/break. 40 mg PO QDAY Take at least 30 minutes before breakfast. Discontinued: Follow Up 6 Weeks Coding Level of Care Code Off vis,new,level 4 Diagnoses Depression with anxiety F41.8 GERD (gastroesophageal reflux disease) K21.9 Electrolyte abnormality E87.8 Diabetes E11.9 03/30/17 0820 <Electronically signed by Yosi Evans MD> Date Yosi Evans MD Cosigner Signature: Date (if applicable) CC: BASIC METABOLIC Collected: 03/26/2017 Status: F Source: [place] PROFILE ([facility]) 3:24 PM [facility] REPOSITORY TYPE CODE TESTS RESULT OUT OF RANGE REFERENCE UNITS LAB L501.0100 70-110 mg/dL Normal GLU 97 LAB L501.1000 7-18 mg/dL Normal BUN 10 LAB L501.1100 0.55-1.02 mg/dL Normal 0.78 CREAT,SERUM Result Comment: The validity of the calculated GFR AND GFRAA in patients over 70 years has not been determined. Clinical correlation is essential. LAB L501.1110 >60 mL/min Normal EST GFR 81 Result Comment: Non- GFR Calc LAB L501.1115 >60 mL/min Normal EST GFR - AA 98 Result Comment: GFR Calc LAB L501.1300 10-20 RATIO Normal BUN/CRE 12.8 LAB L501.2200 8.5-10.1 mg/dL Low CA 7.4 LAB L501.5300 136-145 mmol/L NA Normal 141 LAB L501.5600 3.5-5.1 mmol/L Low K 3.3 LAB L501.5900 98-107 mmol/L CL Normal 104 LAB L501.6100 21.0-32.0 mmol/L Normal CO2 30.0 LAB L501.6200 5-15 Normal GAP 7 Performed By: #### L500.2500, L501.5200 #### [facility] [address] [place], [address] MAGNESIUM Collected: 03/26/2017 Status: F Source: [place] 3:24 PM [facility] REPOSITORY TYPE CODE TESTS RESULT OUT OF RANGE REFERENCE UNITS LAB L501.5200 1.6-2.6 mg/dL Low alert MG 0.8 Result Comment: RESULTS CALLED TO DR ZACARIAS CANE FEEDER FOR 03/26/17 1801 Drew Fink. REPORT READ BACK BY SAME . Please note revised Magnesium reference range effective 2017. Performed By: #### L500.2500, L501.5200 #### [facility] [address] [place], [address] HEMOGLOBIN A1C Collected: 03/26/2017 Status: F Source: [place] 3:24 PM [facility] REPOSITORY TYPE CODE TESTS RESULT OUT OF RANGE REFERENCE UNITS LAB L501.9985 4.2-6.3 % High HGB A1C 6.4 Performed By: #### L501.9985 #### [facility] [address] [place], [address] ALLERGIES ALLERGIES DATE TYPE / CODE NAME / CODE REACTION SEVERITY SOURCE 11/21/19 Drug hydrocodone Nausea Unknown [place] 18 Allergy/945128981 bitartrate/[id number] [facility] (SNOMED CT) 5(RXNORM) Hospital Repository 11/21/19 Drug cyclobenzaprine Nausea Unknown [place] 18 Allergy/372915140 HCl/M069369506(RXNOR [facility] (SNOMED [facility]) M) Hospital Repository 11/21/19 Drug amoxicillin Hives Unknown [place] 18 Allergy/940864581 trihydrate/S68154637 [facility] (SNOMED CT) 7(RXNORM) Hospital Repository 11/21/19 Drug ranitidine Hives Unknown [place] 18 Allergy/496047010 HCl/V288817337(RXNOR [facility] (SNOMED [facility]) M) Hospital Repository 11/21/19 Drug citalopram Other Unknown [place] 18 Allergy/545082552 hydrobromide/W878945 [facility] (SNOMED CT) 107(RXNORM) Hospital Repository 11/21/19 Drug Penicillins/Q5339131 Hives Unknown [place] 18 Allergy/421169406 76(RXNORM) [facility] (SNOMED CT) Hospital Repository 11/21/19 Drug diazepam/L718081376( Hives Unknown [place] 18 Allergy/432240642 RXNORM) [facility] (SNOM[facility]) Hospital Repository 11/21/19 Drug codeine/V497429900(R Hives Unknown [place] 18 Allergy/887925633 XNORM) [facility] ([facility]OM[facility]) Hospital Repository 11/21/19 Drug acetaminophen/W78322 Hives Unknown [place] 18 Allergy/603649990 1605(RXNORM) [facility] (SNOMED CT) Hospital Repository 11/21/19 Drug methocarbamol/B90179 Rash Unknown [place] 18 Allergy/396796475 1669(RXNORM) [facility] (SNOMED CT) Hospital Repository 11/21/19 Drug naproxen/Z538318266( Nausea Unknown [place] 18 Allergy/050470705 RXNORM) [facility] (SNOMED CT) Hospital Repository 11/21/19 Drug doxycycline/R1413779 Other Unknown [place] 18 Allergy/749682304 48(RXNORM) [facility] (SNOMED CT) Hospital Repository 11/21/19 Drug ciprofloxacin/X67350 Itching Unknown [place] 18 Allergy/555721774 2882(RXNORM) [facility] (SNOMED CT) Hospital Repository 11/21/19 Drug omeprazole/M27015169 Nausea Unknown [place] 18 Allergy/833893721 6(RXNORM) [facility] (SNOMED CT) Hospital Repository 11/21/19 Drug nabumetone/U48132011 Rash Unknown [place] 18 Allergy/683754503 2(RXNORM) [facility] (SNOMED CT) Hospital Repository 11/21/19 Drug amoxicillin/X0594377 Hives Unknown [place] 18 Allergy/457614205 75(RXNORM) [facility] (SNOMED CT) Hospital Repository 11/21/19 Drug meloxicam/Z349456425 Other Unknown [place] 18 Allergy/751252666 (RXNORM) [facility] (SNOMED CT) Hospital Repository 11/21/19 Drug ropinirole/Q02328617 Rash Unknown [place] 18 Allergy/791191594 3(RXNORM) [facility] (SNOMED CT) Hospital Repository 11/21/19 Drug pramipexole/N3419192 Other Unknown [place] 18 Allergy/565282270 21(RXNORM) [facility] ([facility]OM[facility] Hospital Repository 11/21/19 Drug celecoxib/G045547335 Nausea/Vom/Diar Unknown [place] 18 Allergy/992361639 (RXNORM) luna [facility] (SNOMED CT) Hospital Repository 03/10/19 DRUG RANITIDINE HCL HIVES [place] [facility]EDI/349258070 [facility] (SNOMED [facility]) [place] Rep[facility] 03/01/20 DRUG OMEPRAZOLE GI UPSET [place] [facility] INGREDI/446574870 [facility] (SNOMED CT) [place] Rep[facility] 08/27/19 DRUG NABUMETONE RASH [place] 13 INGREDI/783965470 [facility] (SNOMED CT) [place] Rep[facility] 08/11/19 DRUG METHOCARBAMOL RASH [place] 13 INGREDI/595373926 [facility] (SNOMED CT) [place] Repository 06/12/19 DRUG PRAMIPEXOLE INTOLERANCE [place] [facility] INGREDI/589106385 [facility] (SNOMED CT) [place] Repository 05/12/19 DRUG ROPINIROLE RASH [place] 13 INGREDI/824531026 [facility] (SNOMED CT) [place] Repository 11/30/19 DRUG CIPROFLOXACIN HCL ITCHING [place] 11 INGREDI/302015061 [facility] (SNOMED CT) [place] Repository 11/30/19 DRUG CYCLOBENZAPRINE HCL GI UPSET [place] 11 INGREDI/481914208 [facility] (SNOMED CT) [place] Repository 11/30/19 DRUG MELOXICAM INTOLERANCE [place] [facility] INGREDI/529467607 [facility] (SNOMED CT) [place] Repository 08/18/19 DRUG SULFAMETHOXAZOLE ITCHING High [place] 11 INGREDI/563159503 [facility] (SNOMED CT) [place] Repository 09/12/19 Miscellaneous OTHER HIVES [place] 09 Allergy/321565917 [facility] (SNOMED CT) [place] Repository 11/02/19 DRUG CITALOPRAM Mental Chg [place] 08 INGREDI/025979164 HYDROBROMIDE [facility] (SNOMED CT) [place] Repository 02/03/20 DRUG CODEINE HIVES [place] 06 INGREDI/807528610 [facility] (SNOMED CT) [place] Repository 10/29/19 Miscellaneous OTHER INTOLERANCE High [place] 05 Allergy/846069968 [facility] (SNOMED CT) [place] Repository 10/29/19 DRUG CELECOXIB GI UPSET [place] 05 INGREDI/417059102 [facility] (SNOMED CT) [place] Repository 10/29/19 Food/870873658(SN CHEESE (SEE HIVES [place] [address]) VEGETABLE GUM) [facility] [place] Repository 10/29/19 DRUG/818487613(SN PROPOXYPHENE HIVES [place] [address]) N-ACETAMINOPHEN [facility] [place] Repository 10/29/19 DRUG DIAZEPAM HIVES [place] 05 INGREDI/134942760 Clinic Main (SNOMED CT) [place] Repository 10/29/19 DRUG DOXYCYCLINE INTOLERANCE [place] 05 INGREDI/424158868 [facility] (SNOMED CT) [place] Repository 10/29/19 DRUG NAPROXEN GI UPSET [place] 05 INGREDI/855294558 Clinic [facility] (SNOMED CT) [place] Repository 10/29/19 Drug [facility] [place] 05 Class/146233392(S [facility] Main NOMED CT) [place] Repository 10/29/19 Miscellaneous OTHER [place] 05 Allergy/366250056 [facility] (SNOMED CT) [place] Repository 10/29/19 DRUG [facility]IN [facility] [place] 05 INGREDI/878184181 [facility] (SNOMED CT) [place] Repository 10/29/19 DRUG ACETAMINOPHEN formerly [facility] 05 INGREDI/935802210 Clinic Main (SNOMED CT) [place] Repository 10/29/19 DRUG/071863058(SN HYDROCODONE-GUAIFENE Mental Chg [place] [address]) SIN [facility] Main [place] Repository 10/29/19 DRUG/379039808(SN HYDROCODONE-ACETAMIN GI UPSET [place] [address]) OPHEN [facility] [place] Repository ENCOUNTERS ENCOUNTERS ADMIT/DISCHARGE ACCOUNT ADMITTING ENCOUNTER LOCATION SOURCE NUMBER CLASS 02/08/2018 [id number] Ambulatory [facility] ing:LAB Repository 01/07/2018 [id number] Ambulatory [facility] ing:LAB.FUTUR Repository E 12/09/2017 [id number] Ambulatory [facility] ing:LAB Repository 12/08/2017/12/11/19 [id number] Ambulatory [address] [place] Repository 12/02/2017 [id number] Ambulatory BMSBuilding:[place] [facility] Repository 11/24/2017/11/25/19 [id number] Ambulatory BMSBuilding:Nixon [place] 18 MS.[facility] Repository 11/20/2017/11/21/19 [id number] Ambulatory BMSBuilding:B [place] 18 MS.[facility] Repository 11/20/2017/11/21/19 [id number] Ambulatory BMSBuilding:B [place] 18 [place].[facility] Repository 11/05/2017 [id number] Ambulatory BMSBuilding:B [place].[facility] Repository 10/20/2017 [id number] Ambulatory [facility] Hospital ing:LAB Repository 09/18/2017 [id number] Ambulatory [facility] Hospital ing:LAB Repository 09/17/2017 [id number] Ambulatory BMSBuilding:B [place] Repository 09/16/2017 [id number] Ambulatory [facility] Hospital ing:PAVLAB Repository 09/15/2017 [id number] Ambulatory [facility] Hospital ing:MEDOUTP Repository 09/11/2017 [id number] Ambulatory [facility] Hospital ing:LAB Repository 08/19/2017/08/20/19 [id number] Ambulatory BMSBuilding:B [place] 18 [facility] Repository 08/18/2017 [id number] Ambulatory BMSBuilding:B [place] Repository 08/12/2017 [id number] Ambulatory BMSBuilding:B [place] Repository 07/29/2017 [id number] Ambulatory [facility] Hospital[facility] Hospital ing:POLAB3 Repository 07/22/2017 [id number] Ambulatory [facility] Hospital ing:LAB Repository 07/21/2017 [id number] Ambulatory [facility] Hospital ing:MEDOUTP Repository 07/17/2017 [id number] Ambulatory [facility] Hospital ing:LAB Repository 07/09/2017 [id number] Ambulatory BMSBuilding:B [place] Repository 07/06/2017 [id number] Ambulatory BMSBuilding:B [place].[facility] Repository 07/06/2017/07/07/19 [id number] Ambulatory BMSBuilding:B [place] 18 [place].[facility] Repository 06/12/2017 [id number] Ambulatory [facility] Hospital ing:LAB Repository 06/12/2017/06/13/19 [id number] Ambulatory BMSBuilding:B [place] 18 [facility] Repository 06/10/2017 [id number] Ambulatory BMSBuilding:N[place] MS.[facility] Repository 05/18/2017/05/19/19 [id number] Ambulatory BMSBuilding:B [place] 18 [facility] Repository 05/13/2017 [id number] Ambulatory BMSBuilding:N[place] MS.[facility] Repository 05/04/2017/05/04/19 [id number] Ambulatory BMSBuilding:B [place] 18 [facility] Repository 05/04/2017 [id number] Ambulatory BMSBuilding:N[place] [facility] Repository 04/28/2017/04/28/19 [id number] Ambulatory BMSBuilding:B [place] 18 [facility] Repository 04/23/2017 [id number] Ambulatory BMSBuilding:N[place] [facility] Repository 04/23/2017 [id number] Ambulatory [facility] Hospital[facility] Hospital ing:CLSP Repository 04/23/2017 [id number] Ambulatory BMSBuilding:N[place] [facility] Repository 04/21/2017/04/21/19 [id number] Ambulatory BMSBuilding:N[place] 18 [facility] Repository 04/21/2017/04/21/19 [id number] Ambulatory BMSBuilding:N[place] 18 [facility] Repository 04/21/2017 [id number] Ambulatory [facility] Hospital ing:LAB Repository 04/21/2017 [id number] Ambulatory BMSBuilding:N[place] [facility] Repository 04/08/2017 [id number] Ambulatory [facility] Hospital ing:LAB Repository 04/06/2017 [id number] Ambulatory [facility] Hospital[facility] Hospital ing:MEDOUTP Repository 04/02/2017 [id number] Ambulatory BMSBuilding:N[place] Harris [facility] Repository 04/02/2017/04/02/19 [id number] Ambulatory BMSBuilding:B [place] 18 [facility] Repository 04/02/2017 [id number] Ambulatory [facility] ing:LAB Repository 03/26/2017 [id number] Ambulatory [facility] ing:MTLAB Repository 03/26/2017/03/26/19 [id number] Ambulatory BMSBuilding:B [place] 18 [facility] Repository PAYERS PAYERS ENCOUNTER GUARANTOR PAYER SUBSCRIBER SOURCE 02/08/2018 LISA P Primary LISA P [place] [id number] [address] Insurance:MEDICARE MILLERDOB: Community [place] [facility] [id number] Number: Repository [address]Tem: [phone] [id number] [phone] () Date:2018-02-08 02/08/2018 Secondary NOT GIVENUNK [place] Insurance:SELF PAY [facility] Number: Effective Repository Date:2018-02-08 01/07/2018 LISA P Primary LISA P [place] [id number] N Insurance:MEDICARE MILLERDOB: Community [place] [address] [facility] [id number] Number: Repository [id number]: [phone] [id number] [phone] () Date:2018-01-07 01/07/2018 Secondary NOT GIVENUNK [place] Insurance:SELF PAY [facility] Number: Effective Repository Date:2018-01-07 12/09/2017 LISA P Primary LISA P Steven [id number] N Insurance:MEDICARE MILLERDOB: Community [place] [address] [facility] [id number] Number: Repository [address]Lee: [phone] [id number] [phone] () Date:2017-12-09 12/09/2017 Secondary NOT GIVENUNK Falconer Insurance:SELF PAY [facility] Number: Effective Repository Date:2017-12-09 12/02/2017 LISA P Primary LISA P Falconer [id number] N Insurance:MEDICARE MILLERDOB: Community [place] [address] [facility] [id number] Number: Repository 301[address]Mez: [phone] [id number] [phone] () Date:2017-08-05 12/02/2017 Secondary NOT GIVENUNK Falconer Insurance:SELF PAY [facility] Number: Effective Repository Date:2017-08-05 11/24/2017 LISA P Primary LISA P Falconer [id number] N Insurance:MEDICARE MILLERDOB: Community [place] [address] [id number] [place] Number[facility]ository [address]Ovn: [phone] [id number] [phone] () Date:2017-11-24 11/24/2017 Secondary NOT GIVENUNK Falconer Insurance:SELF PAY [facility] Number: Effective Repository Date:2017-11-24 11/20/2017 LISA P Primary LISA P Falconer [id number] N Insurance:MEDICARE MILLERDOB: Community [place] [address] [facility] [id number] [facility] [place] Number: Repository [address]Yta: [phone] [id number] [phone] () Date:2017-09-14 11/20/2017 Secondary NOT GIVENUNK Falconer Insurance:SELF PAY [facility] Number: Effective Repository Date:2017-11-20 11/20/2017 LISA P Primary LISA P Steven [id number] N Insurance:MEDICARE MILLERDOB: Community [place] [address] [facility] [id number] Number: Repository 68[address]Rrx: [phone] [id number] [phone] () Date:2017-08-19 11/20/2017 Secondary NOT GIVENUNK Falconer Insurance:SELF PAY [facility] Number: Effective Repository Date:2017-09-14 11/05/2017 LISA P Primary LISA P Steven [id number] N Insurance:MEDICARE MILLERDOB: Community [place] [address] [facility] [id number] Number: Repository 90[address]Rsp: [phone] [id number] [phone] () Date:2017-11-05 11/05/2017 Secondary NOT GIVENUNK Steven Insurance:SELF PAY [facility] Effective Rep[facility] Date:2017-11-05 10/20/2017 LISA P Primary LISA P Steven [id number] N Insurance:MEDICARE MILLERDOB: Community [place] [address] [facility] [id number] Number: Repository 55[address]Ajx: 234 [id number] [phone] () Date:2017-10-20 10/20/2017 Secondary NOT GIVENUNK Steven Insurance:SELF PAY [facility] Number: Effective Repository Date:2017-10-20 09/18/2017 LISA P Primary LISA P Falconer [id number] N Insurance:MEDICARE MILLERDOB: Community [place] [address] [facility] [id number] Number: Repository 837[address]Nlc: 234 [id number] [phone] () Date:2017-09-18 09/18/2017 Secondary NOT GIVENUNK Steven Insurance:SELF PAY [facility] Number: Effective Repository Date:2017-09-18 09/17/2017 LISA P Primary LISA P Steven [id number] N Insurance:MEDICARE MILLERDOB: Community [place] [address] [facility] [id number] Number: Repository 89[address]Inl: 234 [id number] [phone] () Date:2017-09-17 09/17/2017 Secondary NOT GIVENUNK Falconer Insurance:SELF PAY [facility] Number: Effective Repository Date:2017-09-17 09/16/2017 LISA P Primary LISA P Steven [id number] N Insurance:MEDICARE MILLERDOB: Community [place] [address] [facility] [id number] Number: Repository 701[address]Ecb: 234 [id number] [phone] () Date:2017-09-16 09/16/2017 Secondary NOT GIVENUNK Steven Insurance:SELF PAY [facility] Number[facility] Effective Repository Date:2017-09-16 09/15/2017 LISA P Primary LISA P Falconer [id number] N Insurance:MEDICARE MILLERDOB: Community [place] [address] [facility] [id number] [facility] [place] Number: Repository [address]Dbb: 234 [id number] [phone] () Date:2017-09-11 09/15/2017 Secondary NOT GIVENUNK Falconer Insurance:SELF PAY [facility] Number: Effective Repository Date:2017-09-11 09/11/2017 LISA P Primary LISA P Falconer [id number] N Insurance:MEDICARE MILLERDOB: Community [place] [address] [facility] [id number] Valley [facility] [place] Number: Repository 35331Wve: 234 [id number] [phone] () Date:2017-09-11 09/11/2017 Secondary NOT GIVENUNK Falconer Insurance:SELF PAY [facility] Number: Effective Repository Date:2017-09-11 08/19/2017 LISA P Primary LISA P Falconer [id number] N Insurance:MEDICARE MILLERDOB: Community [place] [address] [facility] [id number] [place] Number: Repository [address]Rnh: 234 [id number] [phone] () Date:2017-05-18 08/19/2017 Secondary NOT GIVENUNK Steven Insurance:SELF PAY [facility] Number: Effective Repository Date:2017-08-19 08/18/2017 LISA P Primary LISA P Steven [id number] N Insurance:MEDICARE MILLERDOB: Community [place] [address] [facility] [id number] Valley [facility] [place] Number: Repository [address]Hbm: 234 [id number] [phone] () Date:2017-02-13 08/18/2017 Secondary NOT GIVENUNK Falconer Insurance:SELF PAY [facility] Number: Effective Repository Date:2017-02-13 08/12/2017 LISA P Primary LISA P Falconer [id number] N Insurance:MEDICARE MILLERDOB: Community [place] [address] [facility] [id number] Valley [facility] [place] Number: Repository 39736Bxl: 234 [id number] [phone] () Date:2017-06-12 08/12/2017 Secondary NOT GIVENUNK Steven Insurance:SELF PAY [facility] Number: Effective Repository Date:2017-06-12 07/29/2017 LISA P Primary LISA P Falconer [id number] N Insurance:MEDICARE MILLERDOB: Community [place] [address] [facility] [id number] [facility], [place] Number: Repository [address]73Tdv: 234 [id number] [phone] () Date:2017-07-29 07/29/2017 Secondary NOT GIVENUNK Falconer Insurance:SELF PAY [facility] Number: Effective Repository Date:2017-07-29 07/22/2017 LISA P Primary LISA P Steven [id number] N Insurance:MEDICARE MILLERDOB: Community [place] [address] [facility] [id number] Valley [facility] [place] Number: Repository 16142Dus: 234 [id number] [phone] () Date:2017-07-22 07/22/2017 Secondary NOT GIVENUNK Falconer Insurance:SELF PAY [facility] Number: Effective Repository Date:2017-07-22 07/21/2017 LISA P Primary LISA P Falconer [id number] N Insurance:MEDICARE MILLERDOB: Community [place] [address] [facility] [id number] Medical [facility], [place] Number: Repository [address]Ptr: 234 [id number] [phone] () Date:2017-07-20 07/21/2017 Secondary NOT GIVENUNK Steven Insurance:SELF PAY [facility] Number: Effective Repository Date:2017-07-20 07/17/2017 LISA P Primary LISA P Steven [id number] N Insurance:MEDICARE MILLERDOB: Community [place] [address] [facility] [id number] Medical Center, [place] Number: Repository [address]2009Pzw: 234 [id number] [phone] () Date:2017-07-17 07/17/2017 Secondary NOT GIVENUNK Steven Insurance:SELF PAY [facility] Number: Effective Repository Date:2017-07-17 07/09/2017 LISA P Primary LISA P Steven [id number] N Insurance:MEDICARE MILLERDOB: Community [place] [address] [facility] [id number] Valley [facility] [place] Number: Repository 43856Ylz: 234 [id number] [phone] () Date:2017-07-09 07/09/2017 Secondary NOT GIVENUNK Falconer Insurance:SELF PAY [facility] Number: Effective Repository Date:2017-07-09 07/06/2017 LISA P Primary LISA P Steven [id number] N Insurance:MEDICARE MILLERDOB: Community [place] [address] [facility] [id number] Number: Repository 58292Alw: 234 [id number] [phone] () Date:2017-07-06 07/06/2017 Secondary NOT GIVENUNK Steven Insurance:SELF PAY [facility] Number: Effective Repository Date:2017-07-06 07/06/2017 LISA P Primary LISA P Steven [id number] N Insurance:MEDICARE MILLERDOB: Community [place] [address] [facility] [id number] Number: Repository 33952Elu: 234 [id number] [phone] () Date:2017-07-06 07/06/2017 Secondary NOT GIVENUNK Falconer Insurance:SELF PAY [facility] Number: Effective Repository Date:2017-07-06 06/12/2017 LISA P Primary LISA P Falconer [id number] N Insurance:MEDICARE MILLERDOB: Community [place] [address] [facility] [id number] Number: Repository 34571Rdk: ([phone] [id number] [phone] () Date:2017-06-12 06/12/2017 Secondary NOT GIVENUNK Steven Insurance:SELF PAY [facility] Number: Effective Repository Date:2017-06-12 06/12/2017 LISA P Primary LISA P Steven [id number] N Insurance:MEDICARE MILLERDOB: Community [place] [address] [facility] [id number] Valley Hospital [place] Number: Repository 11920Cum: 234 [id number] [phone] () Date:2017-06-10 06/12/2017 Secondary NOT GIVENUNK Steven Insurance:SELF PAY [facility] Number: Effective Repository Date:2017-06-12 06/10/2017 LISA P Primary LISA P Falconer [id number] N Insurance:MEDICARE MILLERDOB: Community [place] [address] [facility] [id number] Valley [facility] [place] Number: Repository [address]7314Gdk: 234 [id number] [phone] () Date:2017-06-09 06/10/2017 Secondary NOT GIVENUNK Steven Insurance:SELF PAY [facility] Number: Effective Repository Date:2017-06-09 05/18/2017 LISA P Primary LISA P Steven [id number] N Insurance:MEDICARE MILLERDOB: Community [place] [address] [facility] [id number] Medical Center, [place] Number: Repository 04771Wkh: 234 [id number] [phone] () Date:2017-05-04 05/18/2017 Secondary NOT GIVENUNK Falconer Insurance:SELF PAY [facility] Number: Effective Repository Date:2017-05-04 05/13/2017 LISA P Primary LISA P Steven [id number] N Insurance:MEDICARE MILLERDOB: Community [place] [address] [facility] [id number] Medical [facility], [place] Number: Repository [address]13Tiw: 234 [id number] [phone] () Date:2017-04-22 05/13/2017 Secondary NOT GIVENUNK Steven Insurance:SELF PAY [facility] Number: Effective Repository Date:2017-04-22 05/04/2017 LISA P Primary LISA P Steven [id number] N Insurance:MEDICARE MILLERDOB: Community [place] [address] [facility] [id number] Number: Repository 85038Vhd: 234 [id number] [phone] () Date:2017-04-17 05/04/2017 Secondary NOT GIVENUNK Falconer Insurance:SELF PAY [facility] Number: Effective Repository Date:2017-04-17 05/04/2017 LISA P Primary LISA P Falconer [id number] N Insurance:MEDICARE MILLERDOB: Community [place] [address] [facility] [id number] Number: Repository 78053Hlf: 234 [id number] [phone] () Date:2017-05-04 05/04/2017 Secondary NOT GIVENUNK Steven Insurance:SELF PAY [facility] Number: Effective Repository Date:2017-05-04 04/28/2017 LISA P Primary LISA P Steven [id number] N Insurance:MEDICARE MILLERDOB: Community [place] [address] [place] [facility] [id number] Number: Repository 81988Spz: 234 [id number] [phone] () Date:2017-04-28 04/28/2017 Secondary NOT GIVENUNK Falconer Insurance:SELF PAY [facility] Number: Effective Repository Date:2017-04-28 04/23/2017 LISA P Primary LISA P Falconer [id number] N Insurance:MEDICARE MILLERDOB: Community [place] [address] [facility] [id number] Number: Repository 76324Ynt: 234 [id number] [phone] () Date:2017-04-23 04/23/2017 Secondary NOT GIVENUNK Steven Insurance:SELF PAY [facility] Number: Effective Repository Date:2017-04-23 04/23/2017 LISA P Primary LISA P Steven [id number] N Insurance:MEDICARE MILLERDOB: Community [place] [address] [facility] [id number] Valley Hospital [place] Number: Repository 72728Nlv: [phone] [id number] [phone] (HP) Date:2017-04-02 04/23/2017 Secondary NOT GIVENUNK Steven Insurance:SELF PAY [facility] Number: Effective Repository Date:2017-04-02 04/23/2017 LISA P Primary LISA P Falconer [id number] N Insurance:MEDICARE MILLERDOB: Community [place] [address] [facility] [id number] Medical [facility] Number[place] Repository [address]279Exg: [phone] [id number] [phone] () Date:2017-04-02 04/23/2017 Secondary NOT GIVENUNK Falconer Insurance:SELF PAY [facility] Number: Effective Repository Date:2017-04-23 04/21/2017 LISA P Primary LISA P Steven [id number] N Insurance:MEDICARE MILLERDOB: Community [place] [address] [facility] [id number] Medical Center, [place] Number: Repository 64507Vpy: 234 [id number] [phone] () Date:2017-04-02 04/21/2017 Secondary NOT GIVENUNK Steven Insurance:SELF PAY [facility] Number: Effective Repository Date:2017-04-02 04/21/2017 LISA P Primary LISA P Steven [id number] N Insurance:MEDICARE MILLERDOB: Community [place] [address] [facility] [id number] Medical Center, [place] Number: Repository 61887Fkz: [phone] [id number] [phone] (HP) Date:2017-04-02 04/21/2017 Secondary NOT GIVENUNK Falconer Insurance:SELF PAY [facility] Number: Effective Repository Date:2017-04-02 04/21/2017 LISA P Primary LISA P Falconer [id number] N Insurance:MEDICARE MILLERDOB: Community [place] [address] [facility] [id number] Medical [facility] Number[place]ository 81525Dxv: [phone]) [id number] [phone] (HP) Date:2017-04-21 04/21/2017 Secondary NOT GIVENUNK Steven Insurance:SELF PAY [facility] Number: Effective Repository Date:2017-04-21 04/21/2017 LISA P Primary LISA P Falconer [id number] N Insurance:MEDICARE MILLERDOB: Community [place] [address] [facility] [id number] Medical Center, [place] Number[place] Repository 64016Wzv: 234 [id number] [phone] (HP) Date:2017-04-21 04/21/2017 Secondary NOT GIVENUNK Steven Insurance:SELF PAY [facility] Number: Effective Repository Date:2017-04-21 04/08/2017 LISA P Primary LISA P Falconer [id number] N Insurance:MEDICARE MILLERDOB: Community [place] [address] [facility] [id number] Medical Center, [place] Number: Repository 01573Whz: 234 [id number] [phone] () Date:2017-04-08 04/08/2017 Secondary NOT GIVENUNK Steven Insurance:SELF PAY [facility] Number: Effective Repository Date:2017-04-08 04/06/2017 LISA P Primary LISA P Steven [id number] N Insurance:MEDICARE MILLERDOB: Community [place] [address] [facility] [id number] Medical Center, [place] Number: Repository 47011Yyq: 234 [id number] [phone] () Date:2017-04-03 04/06/2017 Secondary NOT GIVENUNK Falconer Insurance:SELF PAY [facility] Number: Effective Repository Date:2017-04-03 04/02/2017 LISA P Primary LISA P Falconer [id number] N Insurance:MEDICARE MILLERDOB: Community [place] [address] [facility] [id number] Medical [facility] Number: Repository 12673Dcg: [phone] [id number] [phone] () Date:2017-04-02 04/02/2017 Secondary NOT GIVENUNK Falconer Insurance:SELF PAY [facility] Number: Effective Repository Date:2017-04-02 04/02/2017 LISA P Primary LISA P Falconer [id number] N Insurance:MEDICARE MILLERDOB: Community [place] [address] [facility] [id number] Number: Repository 61445Vtj: 234 [id number] [phone] () Date:2017-02-13 04/02/2017 Secondary NOT GIVENUNK Steven Insurance:SELF PAY [facility] Number: Effective Repository Date:2017-02-13 04/02/2017 LISA P Primary LISA P Steven [id number] N Insurance:MEDICARE MILLERDOB: Community [place] [address] [facility] [id number], [place] Number: Repository 65959Phd: 234 [id number] [phone] () Date:2017-04-02 04/02/2017 Secondary NOT GIVENUNK Steven Insurance:SELF PAY [facility] Number: Effective Repository Date:2017-04-02 03/26/2017 LISA P Primary LISA P Steven [id number] N Insurance:MEDICARE MILLERDOB: Community [place] [address] [facility] [id number] Number: Repository 52688Xdg: 234 [id number] [phone] () Date:2017-03-26 03/26/2017 Secondary NOT GIVENUNK Steven Insurance:SELF PAY [facility] Number: Effective Repository Date:2017-03-26 03/26/2017 LISA P Primary LISA P Steven [id number] N Insurance:MEDICARE MILLERDOB: Community [place] [address] [facility] [id number], [place] Number: Repository 69243Tym: 234 [id number] [phone] () Date:2017-03-18 03/26/2017 Secondary NOT GIVENUNK Falconer Insurance:SELF PAY [facility] Number: Effective Repository Date:2017-03-18
== END ==
PROVIDERS: Family Provider Internal Medicine; PCP Internal Medicine; Referring Provider Internal Medicine; Visit Provider Internal Medicine
DX: E83.42 Hypomagnesemia (principal)
CPT/HCPCS: 36415; 83735

== ENCOUNTER → 2018-03-11 12:16 | Outpatient (CLI) | payer MEDICARE, SELFPAY ==
[2017-11-24 14:22] VITALS: BMI 25.2
[2018-03-11 15:00] LABS: Magnesium 1.8 mg/dL (1.6-2.6)
[2018-03-11 15:04] LABS: AST(SGOT) 29 U/L (15-37); Alanine Aminotransfer ALT/SGPT 29 U/L (13-56); Albumin, Serum 3.7 g/dL (3.2-5.0); Alkaline Phosphatase 144 U/L (45-117); Bilirubin, Direct 0.18 mg/dL (0.00-0.30); Cholesterol 232 mg/dL (200); High Density Lipoprotein 36 mg/dL; Protein, Total 7.7 g/dL (6.4-8.2); Triglycerides 258 mg/dL; Very Low Density Lipoprotein 52 mg/dL (5-40)
[2018-03-11 15:09] LABS: Vitamin D,25 Hydroxy 75.1 ng/mL (29.95-100.01)
== END ==
PROVIDERS: Family Provider Internal Medicine; PCP Internal Medicine; Referring Provider Physician Assistant Medical; Visit Provider Physician Assistant Medical
DX: I10 Essential (primary) hypertension (principal); E55.9 Vitamin D deficiency, unspecified; E83.42 Hypomagnesemia
CPT/HCPCS: 36415; 80061; 80076; 82306; 83735

== ENCOUNTER → 2018-04-13 12:44 | Outpatient (CLI) | payer MEDICARE, SELFPAY ==
[2018-03-18 14:19] VITALS: BMI 26.6
[2018-04-13 13:44] LABS: Magnesium 1.8 mg/dL (1.6-2.6)
[2018-04-13 13:55] LABS: AST(SGOT) 26 U/L (15-37); Alanine Aminotransfer ALT/SGPT 26 U/L (13-56); Albumin, Serum 3.8 g/dL (3.2-5.0); Alkaline Phosphatase 164 U/L (45-117); Bilirubin, Direct 0.14 mg/dL (0.00-0.30); Cholesterol 147 mg/dL (200); High Density Lipoprotein 39 mg/dL; Protein, Total 8.8 g/dL (6.4-8.2); Triglycerides 184 mg/dL; Very Low Density Lipoprotein 37 mg/dL (5-40)
[2018-04-13 14:00] LABS: Vitamin D,25 Hydroxy 77.7 ng/mL (29.95-100.01)
== END ==
PROVIDERS: Nurse Practitioner Family; Family Provider Internal Medicine; PCP Internal Medicine; Referring Provider Physician Assistant Medical; Visit Provider Physician Assistant Medical
DX: E78.5 Hyperlipidemia, unspecified (principal); E83.42 Hypomagnesemia; E55.9 Vitamin D deficiency, unspecified
CPT/HCPCS: 36415; 80061; 80076; 82306; 83735

== ENCOUNTER 2018-05-24 12:59 | Outpatient (RCR) | payer MEDICARE, SELFPAY ==
[2018-05-21 09:24] VITALS: BMI 27.1
== END 2018-06-25 10:29 | disposition home or self-care (01) ==
LOC: LAB 12:59
PROVIDERS: Family Provider Internal Medicine; PCP Internal Medicine; Referring Provider Internal Medicine; Visit Provider Internal Medicine
DX: E83.42 Hypomagnesemia (principal)
CPT/HCPCS: 36415; 83735

== ENCOUNTER → 2018-08-20 11:00 | Outpatient (CLI) | payer MEDICARE, SELFPAY ==
[2018-06-11 14:12] VITALS: BMI 27.1
[2018-08-20 11:53] LABS: Magnesium 2.1 mg/dL (1.6-2.6)
== END ==
PROVIDERS: Family Provider Internal Medicine; PCP Internal Medicine; Referring Provider Family Medicine; Visit Provider Family Medicine
DX: E83.42 Hypomagnesemia (principal)
CPT/HCPCS: 36415; 83735

== ENCOUNTER → 2018-10-13 | Outpatient (CLI) | payer MEDICARE, SELFPAY ==
[2018-10-13 10:38] VITALS: BMI 25.4
[2018-10-13 12:55] LABS: AST(SGOT) 34 U/L (15-37); Alanine Aminotransfer ALT/SGPT 33 U/L (13-56); Alkaline Phosphatase 192 U/L (45-117); Bilirubin, Direct 0.21 mg/dL (0.00-0.30); Cholesterol 132 mg/dL (200); Globulin 4.4 g/dL (2.2-4.2); High Density Lipoprotein 47 mg/dL; Protein, Total 8.4 g/dL (6.4-8.2); Triglycerides 136 mg/dL; Very Low Density Lipoprotein 27 mg/dL (5-40)
== END | disposition home or self-care (01) ==
PROVIDERS: Family Provider Internal Medicine; PCP Internal Medicine; Visit Provider Physician Assistant Medical
DX: I10 Essential (primary) hypertension (principal); Z83.49 Family history of other endocrine, nutritional and metabolic diseases
CPT/HCPCS: 36415; 80061; 80076

== ENCOUNTER → 2019-02-15 16:08 | Outpatient (CLI) | payer MEDICARE, SELFPAY ==
[2019-02-15 15:01] VITALS: BMI 25.4
[2019-02-15 17:42] LABS: Absolute Lymphocyte Count 2.84 X10^3/uL (0.83-4.51); Absolute Neutrophil Count 8.1 X10^3/uL (2.0-7.7); Basophil# 0.06 X10^3/uL; Basophil% 0.5 % (0-1); Eosinophils% 4.8 % (0-5); Hematocrit 46.1 % (37-47); Hemoglobin 15.3 g/dL (12.0-15.0); Lymphocyte # 2.84 X10^3/ul (4.0); Lymphocyte % 22.8 % (19-41); Mean Corp Hgb Conc 33.2 g/dL (32-36); Mean Corpuscular Hgb 31.4 pg (27.0-32.0); Mean Corpuscular Volume 94.7 fL (81-99); Mean Platelet Vol. 11.4 fl (6.2-12.0); Monocyte# 0.83 X10^3/uL; Monocyte% 6.7 % (0-10); NRBC Flagged by Analyzer 0 % (0-5); Neutrophil # 8.05 X10^3/uL (2.7-7.7); Neutrophil % 64.7 % (47-70); Platelet Count 236 K/mm3 (150-450); RBC Distribution Width CV 12.2 % (11.6-14.6); RBC Distribution Width SD 42.7 fl (35.1-43.9); Red Blood Count 4.87 M/mm3 (4.2-5.4); White Blood Count 12.4 K/mm3 (4.4-11.0)
[2019-02-15 17:58] LABS: Anion Gap 5 (5-15); BUN 16 mg/dL (7-18); BUN/Creat Ratio 14.5 RATIO (10-20); Calcium,Total 8.9 mg/dL (8.5-10.1); Chloride 105 mmol/L (98-107); EST Glomerular Filtration Rate 54 mL/min (>60); Est Glom Filt Rate - Afr Amer 66 mL/min (>60); Glucose 118 mg/dL (74-106); Magnesium 1.8 mg/dL (1.6-2.6); Potassium 3.9 mmol/L (3.5-5.1); Sodium Level 140 mmol/L (136-145)
[2019-02-15 18:06] LABS: Vitamin D,25 Hydroxy 40.5 ng/mL (29.95-100.01)
== END ==
PROVIDERS: Family Provider Internal Medicine; PCP Internal Medicine; Referring Provider Internal Medicine; Visit Provider Internal Medicine
DX: I10 Essential (primary) hypertension (principal); J44.9 Chronic obstructive pulmonary disease, unspecified; E55.9 Vitamin D deficiency, unspecified
CPT/HCPCS: 36415; 80048; 82306; 83735; 85025

== ENCOUNTER → 2019-08-26 08:33 | Outpatient (CLI) | payer MEDICARE, SELFPAY ==
[2019-08-11 15:09] VITALS: BMI 24.7
[2019-08-26 09:10] LABS: Hematocrit 44.9 % (37-47); Hemoglobin 14.5 g/dL (12.0-15.0); Mean Corp Hgb Conc 32.3 g/dL (32-36); Mean Corpuscular Hgb 30.9 pg (27.0-32.0); Mean Corpuscular Volume 95.7 fL (81-99); Mean Platelet Vol. 11.1 fl (6.2-12.0); Platelet Count 211 K/mm3 (150-450); RBC Distribution Width CV 12.6 % (11.6-14.6); RBC Distribution Width SD 44.4 fl (35.1-43.9); Red Blood Count 4.69 M/mm3 (4.2-5.4); White Blood Count 9.4 K/mm3 (4.4-11.0)
[2019-08-26 09:31] LABS: ALB/GLOB Ratio 0.9 RATIO (0.9-2.4); AST(SGOT) 29 U/L (15-37); Alanine Aminotransfer ALT/SGPT 25 U/L (13-56); Albumin, Serum 3.7 g/dL (3.2-5.0); Alkaline Phosphatase 174 U/L (45-117); Anion Gap 6 (5-15); BUN 19 mg/dL (7-18); BUN/Creat Ratio 18.1 RATIO (10-20); Calcium,Total 9.2 mg/dL (8.5-10.1); Chloride 100 mmol/L (98-107); Cholesterol 142 mg/dL (200); Creatinine, Serum 1.05 mg/dL (0.55-1.02); EST Glomerular Filtration Rate 57 mL/min (>60); Est Glom Filt Rate - Afr Amer 69 mL/min (>60); Globulin 4.3 g/dL (2.2-4.2); Glucose 125 mg/dL (74-106); High Density Lipoprotein 39 mg/dL; Potassium 4.2 mmol/L (3.5-5.1); Sodium Level 138 mmol/L (136-145); Thyroid Stim Hormone (TSH) 2.83 uIU/mL (0.358-3.74); Triglycerides 180 mg/dL; Very Low Density Lipoprotein 36 mg/dL (5-40)
== END ==
PROVIDERS: PCP Internal Medicine; Referring Provider Nurse Practitioner Family; Visit Provider Nurse Practitioner Family
DX: R42 Dizziness and giddiness (principal); R53.83 Other fatigue; I42.8 Other cardiomyopathies; I50.22 Chronic systolic (congestive) heart failure; E83.42 Hypomagnesemia; E11.9 Type 2 diabetes mellitus without complications; E78.5 Hyperlipidemia, unspecified
CPT/HCPCS: 36415; 80053; 80061; 83735; 84443; 85027

== ENCOUNTER → 2019-09-19 10:37 | Outpatient (CLI) | payer MEDICARE, SELFPAY ==
[2019-05-19 14:05] VITALS: BMI 24.7
[2019-08-11 15:09] VITALS: BMI 24.7
--- NOTE | 2019-09-19 10:40 | ECHOD_ITS ---
Reason For Study: Dyspnea/SOB Procedure This was a 2D Doppler, Color Flow transthoracic echocardiogram. Exam performed in department. Left Ventricle Normal LV size. The estimated ejection fraction is 45 %. Stage 2 diastolic dysfunction. No regional wall motion abnormalities noted. Right Ventricle Normal RV size. ICD or pacer leads identified within the right ventricle. Normal systolic function. Mitral Valve Normal mitral valve. Mild (1+) eccentric mitral valve insufficiency. Tricuspid Valve Normal tricuspid valve. Mild (1+) tricuspid valve insufficiency. Pulmonary artery systolic pressure is 35 mmHg. Aortic Valve Normal aortic valve. Mild focal aortic valve calcification. Pulmonic Valve Normal pulmonic valve. Great Vessels Normal aortic root. The pulmonary artery is normal size. Normal inferior vena cava. Pericardium/Pleural No pericardial effusion. MMode/2D Measurements & Calculations LVIDd: 4.1 cm IVSd: 0.93 cm Ao root diam: 2.7 cm LVIDs: 3.2 cm LVPWd: 0.79 cm RVDd: 3.1 cm FS: 22.1 % LAV(MOD-sp2): 28.4 ml LVAd ap4: 22.6 cm2 SV(MOD-sp4): 31.8 ml EDV(MOD-sp4): 63.7 ml EDV(sp4-el): 64.8 ml LVAs ap4: 14.9 cm2 ESV(MOD-sp4): 31.9 ml ESV(sp4-el): 32.7 ml EF(MOD-sp4): 50.0 % EF(sp4-el): 49.5 % SV(sp4-el): 32.1 ml LA dimension(2D): 2.7 cm Doppler Measurements & Calculations MV E max benson: 66.4 cm/sec Lat Peak E' Benson: 5.4 cm/sec Med Peak E' Benson: 3.8 cm/sec MV A max benson: 72.5 cm/sec E/E' lat: 12.3 E/E' med: 17.4 MV E/A: 0.92 Ao V2 max: 145.1 cm/sec LV V1 max: 109.8 cm/sec TV V2 max: 152.7 cm/sec Ao max P.4 mmHg LV V1 max P.8 mmHg TV max P.4 mmHg Ao V2 mean: 104.1 cm/sec TV V2 mean: 105.3 cm/sec Ao mean P.7 mmHg TV mean P.8 mmHg Ao V2 VTI: 32.5 cm PA V2 max: 100.8 cm/sec TR max benson: 281.8 cm/sec TR max P.8 mmHg Interpretation Summary Normal LV size. The estimated ejection fraction is 45 %. Stage 2 diastolic dysfunction. Mild (1+) tricuspid valve insufficiency. Compared to prior study, there is no significant change. Ordering Physician: Stewart Diane Referring Physician: Yosi Evans Performed By: Brianne Gooden, ARIANNA, RVT
== END ==
PROVIDERS: PCP Internal Medicine; Referring Provider Internal Medicine Cardiovascular Disease; Visit Provider Internal Medicine Cardiovascular Disease
DX: I42.8 Other cardiomyopathies (principal)
CPT/HCPCS: 93306

== ENCOUNTER → 2020-06-29 11:38 | Outpatient (CLI) | payer MEDICARE, SELFPAY ==
[2020-06-29 10:50] VITALS: BMI 25.2
[2020-06-29 12:39] LABS: Absolute Lymphocyte Count 1.79 X10^3/uL (0.83-4.51); Absolute Neutrophil Count 6.8 X10^3/uL (2.0-7.7); Basophil# 0.09 X10^3/uL; Basophil% 0.9 % (0-1); Eosinophil# 0.38 X10^3/uL; Eosinophils% 3.9 % (0-5); Hematocrit 46.1 % (37-47); Hemoglobin 15.3 g/dL (12.0-15.0); Lymphocyte # 1.79 X10^3/ul (0.83-4.51); Lymphocyte % 18.4 % (19-41); Mean Corp Hgb Conc 33.2 g/dL (32-36); Mean Corpuscular Hgb 30.7 pg (27.0-32.0); Mean Corpuscular Volume 92.4 fL (81-99); Mean Platelet Vol. 11.4 fl (6.2-12.0); Monocyte# 0.62 X10^3/uL; Monocyte% 6.4 % (0-10); NRBC Flagged by Analyzer 0 % (0-5); Neutrophil # 6.78 X10^3/uL (2.7-7.7); Neutrophil % 69.9 % (47-70); Platelet Count 230 K/mm3 (150-450); RBC Distribution Width CV 12.3 % (11.6-14.6); RBC Distribution Width SD 42.1 fl (35.1-43.9); Red Blood Count 4.99 M/mm3 (4.2-5.4); White Blood Count 9.7 K/mm3 (4.4-11.0)
[2020-06-29 13:28] LABS: Anion Gap 3 (5-15); BUN 15 mg/dL (7-18); BUN/Creat Ratio 13.9 RATIO (10-20); Calcium,Total 9.5 mg/dL (8.5-10.1); Chloride 100 mmol/L (98-107); Creatinine, Serum 1.08 mg/dL (0.55-1.02); EST Glomerular Filtration Rate 55 mL/min (>60); Est Glom Filt Rate - Afr Amer 67 mL/min (>60); Glucose 128 mg/dL (74-106); Magnesium 1.9 mg/dL (1.6-2.6); Potassium 3.9 mmol/L (3.5-5.1); Sodium Level 135 mmol/L (136-145)
== END ==
PROVIDERS: PCP Internal Medicine; Referring Provider Internal Medicine; Visit Provider Internal Medicine
DX: E83.42 Hypomagnesemia (principal); I10 Essential (primary) hypertension
CPT/HCPCS: 36415; 80048; 83735; 85025

== ENCOUNTER → 2020-08-08 | Outpatient (CLI) | payer MEDICARE, SELFPAY ==
[2020-06-29 10:50] VITALS: BMI 25.2
[2020-08-10 16:26] LABS: HPV APTIMA, High Risk Negative (Negative); HPV Reflexed? YES, CHARGE PATIENT
== END | disposition home or self-care (01) ==
LOC: LABSPEC 11:59
PROVIDERS: PCP Internal Medicine; Visit Provider Obstetrics & Gynecology
DX: Z12.4 Encounter for screening for malignant neoplasm of cervix (principal)
CPT/HCPCS: 87624; 88175; G0145

== ENCOUNTER → 2021-01-10 14:07 | Outpatient (CLI) | payer MEDICARE, SELFPAY ==
[2021-01-10 15:55] LABS: Anion Gap 4 (5-15); BUN 14 mg/dL (7-18); BUN/Creat Ratio 12.4 RATIO (10-20); Calcium,Total 9.6 mg/dL (8.5-10.1); Chloride 102 mmol/L (98-107); Creatinine, Serum 1.13 mg/dL (0.55-1.02); EST Glomerular Filtration Rate 52 mL/min (>60); Est Glom Filt Rate - Afr Amer 63 mL/min (>60); Glucose 127 mg/dL (74-106); Sodium Level 139 mmol/L (136-145)
[2021-01-10 15:58] LABS: Amphetamine Urine VISTA NEGATIVE (<1000 ng/mL); Barbiturate Urine VISTA NEGATIVE (< 200 ng/mL); Benzodiazepine Urine VISTA NEGATIVE (< 200 ng/mL); Cocaine Urine VISTA NEGATIVE (< 300 ng/mL); Ecstacy Urine VISTA NEGATIVE (< 500 ng/mL); Methadone Urine VISTA NEGATIVE (< 300 ng/mL); PCP Urine VISTA NEGATIVE (< 25 ng/mL); THC Urine VISTA NEGATIVE (< 50 ng/mL); Vista UDS pH Range 5
== END ==
PROVIDERS: PCP Internal Medicine; Visit Provider Internal Medicine
DX: I10 Essential (primary) hypertension (principal); E83.42 Hypomagnesemia; Z51.81 Encounter for therapeutic drug level monitoring
CPT/HCPCS: 36415; 80048; 80307; 83735

== ENCOUNTER → 2021-01-22 08:10 | Outpatient (CLI) | payer MEDICARE, SELFPAY ==
[2021-01-22 09:42] LABS: AST(SGOT) 34 U/L (15-37); Alanine Aminotransfer ALT/SGPT 26 U/L (13-56); Albumin, Serum 3.7 g/dL (3.2-5.0); Alkaline Phosphatase 159 U/L (45-117); Bilirubin, Direct 0.29 mg/dL (0.00-0.30); Cholesterol 126 mg/dL (200); Globulin 4.6 g/dL (2.2-4.2); High Density Lipoprotein 41 mg/dL; Protein, Total 8.3 g/dL (6.4-8.2); Triglycerides 135 mg/dL; Very Low Density Lipoprotein 27 mg/dL (5-40)
== END ==
PROVIDERS: PCP Internal Medicine; Referring Provider Nurse Practitioner Gerontology; Visit Provider Nurse Practitioner Gerontology
DX: E78.5 Hyperlipidemia, unspecified (principal)
CPT/HCPCS: 36415; 80061; 80076

== ENCOUNTER 2021-08-15 11:37 | Outpatient (CLI) | payer MEDICARE, SELFPAY ==
--- NOTE | 2021-08-15 | VUL_PTH ---
PATIENT: LISA GARZA LOC: [facility] U#:[id number] AGE/SX: 60/F ROOM: RE08/15/[address]: Dr. Dang Olson MD : 1960 BED: DIS: 08/15/2021 SPEC #: [id number] RECD: 08/15/21 12:43 STATUS: JUDY REJake #: [id number] RAYMOND: 08/15/21 00:[address]: Dang Caballero DEPT: SURGICAL PATHOLOGY RECD BY: Hunter Turk ENTERED: 08/15/21 12:43 SP TYPE: VULVA BX OTHR DR: Dr. Yosi Evans MD Tissues: A - Vulva, NOS B - Vulva, NOS C - Vulva, NOS Procedures: Surgery Specimen Level IV HEADER OPERATION: Vulvar/rectal biopsy PRE-OP DIAGNOSIS: Verrucous perianal lesion, remote history vulvar dysplasia TISSUE SUBMITTED: A ? 4 o?clock, B ? 1 o?clock, C ? 2 o?clock MICROSCOPIC DIAGNOSIS A. Vulvar lesion, 4 o?clock, biopsy: Severe squamous dysplasia (JOIE III). Hyperkeratosis and parakeratosis. See comment. B. Vulvar lesion, 1 o?clock, biopsy: Consistent with fragments of condyloma. See comment. C. 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 Hyperkeratosis and parakeratosis. See comment. SJ:yaa 08/16/2021 COMMENT A-C. Immunohistochemistry ([id number]) for surrogate HPV marker (p16) supports the above diagnosis. MICROSCOPIC DESCRIPTION Slides are reviewed. GROSS DESCRIPTION A - Received in fixative is one container labeled with the patient's name and designated vulvar biopsy 4 o?clock. The specimen consists of two irregular fragments of light emanuel soft tissue that in aggregate measure 0.5 x 0.3 x 0.1 cm. The specimen is totally submitted in one cassette. B - Received in fixative is one container labeled with the patient's name and designated vulvar biopsy 1 o'clock. The specimen consists of two irregular fragments of light emanuel soft tissue that in aggregate measure 0.7 x 0.1 x 0.1 cm. The specimen is totally submitted in one cassette. C - Received in fixative is one container labeled with the patient's name and designated vulvar biopsy 2 o'clock. The specimen consists of two irregular fragments of light emanuel soft tissue that in aggregate measure 0.3 x 0.1 x 0.1 cm. The specimen is totally submitted in one cassette. / SJ:rg 08/15/2021 TC:5 CPT:80534 x3
--- NOTE | 2021-08-15 | IMM_PTH ---
PATIENT: LISA GARZA LOC: [facility] U#:[id number] AGE/SX: 60/F ROOM: RE08/15/[address]: Dr. Dang Olson MD : 1960 BED: DIS: 08/15/2021 SPEC #: [id number] RECD: 08/16/21 11:39 STATUS: SOUSudheer REQ #: [id number] RAYMOND: 08/15/21 00:[address]: Dang Caballero DEPT: IMMUNOHISTOCHEMISTRY RECD BY: Macie Roca ENTERED: 08/16/21 11:39 SP TYPE: IMMUNO OTHR DR: Dr. Yosi Evans MD Tissues: A - Vulva, NOS B - Vulva, NOS C - Vulva, NOS Procedures: p16 (initial) KI-67 (add) PHYSICIAN & INSTITUTION [place] [address] SPECIMEN INFORMATION: Tissue Source: A ? Vulvar biopsy, 4 o?clock, B - Vulvar biopsy, 1 o?clock, C - Vulvar biopsy, 2 o?clock Clinical Info: Verrucous perianal lesion, remote history vulvar dysplasia Specimen Number: [id number] A-C CPT code: 40069 x3, 27035 x3 METHODOLOGY: Deparaffinized sections of prefer/formalin-fixed tissue or PAP/DQ stained slides are incubated with monoclonal/polyclonal antibodies/oligonucleotide probes. Localization is made via biotin free immunoperoxidase method. Appropriate controls are performed and reacted as expected. Results on target cell population are indicated in the following table: RESULTS: ANTIBODY / CLONE RESULT Block A P16 (E6H4) positive, block staining Ki-67 (30-9) positive, high Block B P16 (E6H4) positive, focal patchy staining Ki-67 (30-9) positive, low Block C P16 (E6H4) positive, block staining Ki-67 (30-9) positive, high These tests were developed and their performance characteristics determined by [facility]. They may not have been cleared or approved by the U.S. Food and Drug Administration. The FDA has determined that such clearance or approval is not necessary. The above immunohistochemical/dualISH markers are ordered and reviewed by the Pathologist. INTERPRETATION: A. Vulva at 4 o?clock, biopsy: Severe squamous dysplasia. B. Vulva at 1 o?clock, biopsy: Consistent with fragment of condyloma. C. Vulva at 2 o?clock, biopsy: Moderate to severe squamous dysplasia. SJ:yaa 08/19/2021
== END 2021-08-15 23:59 | disposition home or self-care (01) ==
PROVIDERS: PCP Internal Medicine; Visit Provider Obstetrics & Gynecology
DX: D07.1 Carcinoma in situ of vulva (principal)
CPT/HCPCS: 88305; 88341; 88342

== ENCOUNTER → 2021-10-09 | Outpatient (CLI) | payer MEDICARE, SELFPAY ==
[2021-10-09 12:07] LABS: Absolute Lymphocyte Count 1.75 X10^3/uL (0.83-4.51); Basophil# 0.08 X10^3/uL; Basophil% 0.8 % (0-1); Eosinophil# 0.36 X10^3/uL; Eosinophils% 3.6 % (0-5); Hematocrit 45.4 % (37-47); Hemoglobin 15.7 g/dL (12.0-15.0); Lymphocyte # 1.75 X10^3/ul (0.83-4.51); Lymphocyte % 17.6 % (19-41); Mean Corp Hgb Conc 34.6 g/dL (32-36); Mean Corpuscular Hgb 32.6 pg (27.0-32.0); Mean Corpuscular Volume 94.4 fL (81-99); Monocyte# 0.72 X10^3/uL; Monocyte% 7.2 % (0-10); NRBC Flagged by Analyzer 0 % (0-5); Neutrophil # 7.01 X10^3/uL (2.7-7.7); Neutrophil % 70.3 % (47-70); Platelet Count 208 K/mm3 (150-450); RBC Distribution Width CV 12.9 % (11.6-14.6); RBC Distribution Width SD 44.9 fl (35.1-43.9); Red Blood Count 4.81 M/mm3 (4.2-5.4)
[2021-10-09 12:23] LABS: Anion Gap 3 (5-15); BUN 18 mg/dL (7-18); BUN/Creat Ratio 16.4 RATIO (10-20); Calcium,Total 9.5 mg/dL (8.5-10.1); Chloride 98 mmol/L (98-107); EST Glomerular Filtration Rate 54 mL/min (>60); Est Glom Filt Rate - Afr Amer 65 mL/min (>60); Glucose 107 mg/dL (74-106); Potassium 3.9 mmol/L (3.5-5.1); Sodium Level 135 mmol/L (136-145)
[2021-10-09 12:48] LABS: Hemoglobin A1c 6.2 % (3.8-5.6)
== END | disposition home or self-care (01) ==
LOC: BIMLAB 09:28
PROVIDERS: PCP Internal Medicine; Visit Provider Internal Medicine
DX: I10 Essential (primary) hypertension (principal); J44.9 Chronic obstructive pulmonary disease, unspecified; E11.9 Type 2 diabetes mellitus without complications
CPT/HCPCS: 36415; 80048; 83036; 85025

== ENCOUNTER → 2022-01-09 | Outpatient (CLI) | payer MEDICARE, SELFPAY ==
[2022-01-09 16:41] LABS: Anion Gap 7 (5-15); BUN 22 mg/dL (7-18); BUN/Creat Ratio 17.7 RATIO (10-20); Calcium,Total 9.3 mg/dL (8.5-10.1); Chloride 99 mmol/L (98-107); Creatinine, Serum 1.24 mg/dL (0.55-1.02); EST Glomerular Filtration Rate 47 mL/min (>60); Est Glom Filt Rate - Afr Amer 57 mL/min (>60); Glucose 113 mg/dL (74-106); Magnesium 1.2 mg/dL (1.6-2.6); Potassium 4.1 mmol/L (3.5-5.1); Sodium Level 135 mmol/L (136-145)
== END | disposition home or self-care (01) ==
LOC: BIMLAB 15:18
PROVIDERS: PCP Internal Medicine; Referring Provider Internal Medicine; Visit Provider Internal Medicine
DX: E11.9 Type 2 diabetes mellitus without complications (principal); E83.42 Hypomagnesemia
CPT/HCPCS: 36415; 80048; 83735

== ENCOUNTER → 2022-01-21 | Outpatient (CLI) | payer MEDICARE, SELFPAY ==
--- NOTE | 2022-01-21 10:35 | RAD_ITS ---
STUDY: X-RAY CHEST REASON FOR EXAM: Female, 61 years old. Chest pain. Evaluate for rib fractures. TECHNIQUE: April 21, 2017. COMPARISON: None. FINDINGS: The lungs are clear and expanded. There is no demonstrated pleural abnormality. Normal size heart. Stable cardiac pacer. Normal mediastinum and lele. Normal visualized pulmonary arteries. Normal visualized aortic arch and descending thoracic aorta. Normal visualized thoracic spine. Normal visualized ribs, clavicles, and shoulders. There is no demonstrated abnormality of the visualized soft tissue structures of the upper abdomen. RAD/Chest PA and Lateral IMPRESSION: Stable cardiac pacer. No acute or active cardiopulmonary disease. No rib fracture identified. Electronically Signed: Johann Damon, at 11:20 EST ,
== END | disposition home or self-care (01) ==
PROVIDERS: PCP Internal Medicine; Referring Provider Physician Assistant Medical; Visit Provider Physician Assistant Medical
DX: I50.22 Chronic systolic (congestive) heart failure (principal); I42.8 Other cardiomyopathies; Z95.810 Presence of automatic (implantable) cardiac defibrillator
CPT/HCPCS: 71046

== ENCOUNTER → 2022-01-24 | Outpatient (CLI) | payer MEDICARE, SELFPAY | END | disposition home or self-care (01) | LOC: BIMLAB 08:38 | PROVIDERS: PCP Internal Medicine; Visit Provider Internal Medicine | DX: E83.42 Hypomagnesemia (principal) | CPT/HCPCS: 36415; 83735 ==

== ENCOUNTER → 2022-02-06 | Outpatient (CLI) | payer MEDICARE, SELFPAY ==
[2022-02-06 15:27] LABS: AST(SGOT) 42 U/L (15-37); Alanine Aminotransfer ALT/SGPT 53 U/L (13-56); Albumin, Serum 3.9 g/dL (3.2-5.0); Alkaline Phosphatase 192 U/L (45-117); Bilirubin, Direct 0.23 mg/dL (0.00-0.30); Cholesterol 139 mg/dL (200); Globulin 4.3 g/dL (2.2-4.2); High Density Lipoprotein 52 mg/dL; Protein, Total 8.2 g/dL (6.4-8.2); Triglycerides 67 mg/dL; Very Low Density Lipoprotein 13 mg/dL (5-40)
[2022-02-06 15:40] LABS: Thyroid Stim Hormone (TSH) 1.78 uIU/mL (0.358-3.74)
== END | disposition home or self-care (01) ==
LOC: LAB 13:45
PROVIDERS: Internal Medicine Cardiovascular Disease; Nurse Practitioner Family; PCP Internal Medicine; Visit Provider Internal Medicine
DX: E11.9 Type 2 diabetes mellitus without complications (principal); I10 Essential (primary) hypertension; E78.5 Hyperlipidemia, unspecified; R63.4 Abnormal weight loss
CPT/HCPCS: 36415; 80061; 80076; 84443

== ENCOUNTER → 2022-07-23 | Outpatient (CLI) | payer MEDICARE, SELFPAY ==
[2022-07-23 12:28] LABS: AST(SGOT) 28 U/L (15-37); Alanine Aminotransfer ALT/SGPT 21 U/L (13-56); Alkaline Phosphatase 128 U/L (45-117); Bilirubin, Direct 0.26 mg/dL (0.00-0.30); Cholesterol 154 mg/dL (200); Globulin 4.1 g/dL (2.2-4.2); High Density Lipoprotein 57 mg/dL; Protein, Total 8.1 g/dL (6.4-8.2); Triglycerides 136 mg/dL; Very Low Density Lipoprotein 27 mg/dL (5-40)
[2022-07-23 12:31] LABS: Anion Gap 5 (5-15); BUN 17 mg/dL (7-18); BUN/Creat Ratio 16.7 RATIO (10-20); Calcium,Total 9.4 mg/dL (8.5-10.1); Chloride 100 mmol/L (98-107); Creatinine, Serum 1.02 mg/dL (0.55-1.02); EST Glomerular Filtration Rate 59 mL/min (>60); Est Glom Filt Rate - Afr Amer 71 mL/min (>60); Glucose 115 mg/dL (74-106); Magnesium 1.8 mg/dL (1.6-2.6); Potassium 4.2 mmol/L (3.5-5.1); Sodium Level 137 mmol/L (136-145)
[2022-07-23 12:36] LABS: Amphetamine Urine VISTA NEGATIVE (<1000 ng/mL); Barbiturate Urine VISTA NEGATIVE (< 200 ng/mL); Benzodiazepine Urine VISTA NEGATIVE (< 200 ng/mL); Cocaine Urine VISTA NEGATIVE (< 300 ng/mL); Ecstacy Urine VISTA NEGATIVE (< 500 ng/mL); Methadone Urine VISTA NEGATIVE (< 300 ng/mL); PCP Urine VISTA NEGATIVE (< 25 ng/mL); THC Urine VISTA NEGATIVE (< 50 ng/mL); Vista UDS pH Range 5
== END | disposition home or self-care (01) ==
PROVIDERS: Internal Medicine Cardiovascular Disease; PCP Internal Medicine; Referring Provider Internal Medicine; Visit Provider Internal Medicine
DX: I10 Essential (primary) hypertension (principal); E11.9 Type 2 diabetes mellitus without complications; E78.00 Pure hypercholesterolemia, unspecified; E83.42 Hypomagnesemia; Z51.81 Encounter for therapeutic drug level monitoring
CPT/HCPCS: 36415; 80048; 80061; 80076; 80307; 83735

== ENCOUNTER → 2022-08-11 | Outpatient (CLI) | payer MEDICARE, SELFPAY ==
[2022-08-15 17:07] LABS: HPV APTIMA, High Risk Negative (Negative)
== END | disposition home or self-care (01) ==
LOC: LABSPEC 09:38
PROVIDERS: PCP Internal Medicine; Visit Provider Student in an Organized Health Care Education/Training Program
DX: Z12.4 Encounter for screening for malignant neoplasm of cervix (principal)
CPT/HCPCS: 87624; 88175; G0145

== ENCOUNTER → 2023-02-04 | Outpatient (CLI) | payer MEDICARE, SELFPAY ==
[2023-02-04 12:40] LABS: Absolute Lymphocyte Count 2.11 X10^3/uL (0.83-4.51); Absolute Neutrophil Count 6.2 X10^3/uL (2.0-7.7); Basophil# 0.09 X10^3/uL; Basophil% 0.9 % (0-1); Eosinophil# 0.47 X10^3/uL; Eosinophils% 4.9 % (0-5); Hematocrit 45.3 % (37-47); Hemoglobin 14.7 g/dL (12.0-15.0); Lymphocyte # 2.11 X10^3/ul (0.83-4.51); Lymphocyte % 22.1 % (19-41); Mean Corp Hgb Conc 32.5 g/dL (32-36); Mean Corpuscular Hgb 31.6 pg (27.0-32.0); Mean Corpuscular Volume 97.4 fL (81-99); Mean Platelet Vol. 11.9 fl (6.2-12.0); Monocyte% 6.3 % (0-10); NRBC Flagged by Analyzer 0 % (0-5); Neutrophil # 6.23 X10^3/uL (2.7-7.7); Neutrophil % 65.5 % (47-70); Platelet Count 197 K/mm3 (150-450); RBC Distribution Width CV 12.5 % (11.6-14.6); RBC Distribution Width SD 44.5 fl (35.1-43.9); Red Blood Count 4.65 M/mm3 (4.2-5.4); White Blood Count 9.5 K/mm3 (4.4-11.0)
[2023-02-04 13:01] LABS: Anion Gap 7 (5-15); BUN 19 mg/dL (7-18); BUN/Creat Ratio 20.5 RATIO (10-20); Calcium,Total 9.4 mg/dL (8.5-10.1); Chloride 98 mmol/L (98-107); Creatinine, Serum 0.93 mg/dL (0.55-1.02); EST Glomerular Filtration Rate 65 mL/min (>60); Est Glom Filt Rate - Afr Amer 79 mL/min (>60); Glucose 115 mg/dL (74-106); Magnesium 1.9 mg/dL (1.6-2.6); Potassium 4.2 mmol/L (3.5-5.1); Sodium Level 138 mmol/L (136-145)
[2023-02-04 13:25] LABS: AST(SGOT) 38 U/L (15-37); Alanine Aminotransfer ALT/SGPT 32 U/L (13-56); Albumin, Serum 4.2 g/dL (3.2-5.0); Alkaline Phosphatase 123 U/L (45-117); Bilirubin, Direct 0.28 mg/dL (0.00-0.30); Cholesterol 135 mg/dL (200); Globulin 4.3 g/dL (2.2-4.2); High Density Lipoprotein 59 mg/dL; Protein, Total 8.5 g/dL (6.4-8.2); Triglycerides 90 mg/dL; Very Low Density Lipoprotein 18 mg/dL (5-40)
== END | disposition home or self-care (01) ==
LOC: BIMLAB 11:12
PROVIDERS: Internal Medicine Cardiovascular Disease; PCP Internal Medicine; Referring Provider Internal Medicine; Visit Provider Internal Medicine
DX: E83.42 Hypomagnesemia (principal); E11.9 Type 2 diabetes mellitus without complications; E78.00 Pure hypercholesterolemia, unspecified
CPT/HCPCS: 36415; 80048; 80061; 80076; 83735; 85025

== ENCOUNTER → 2023-04-14 | Outpatient (CLI) | payer MEDICARE, SELFPAY ==
--- OUTSIDE RECORDS SUMMARY | 2023-04-14 17:39 | XMS RPT_ITS | CCD ---
Author Name Unknown Address [address] [place] [address] Organization [facility] Care Team Providers Care Harbormaster Name Role Phone SEJAL LEDESMA, MARTIN Alicea Primary Care Physician JENNY LEDESMA, CHAR Attending MARTIN Donato MD Primary Care Unavailab Dilshad LEDESMA, CHAR Attending MARTIN Donato MD Primary Care Unavailab Dilshad LEDESMA, CHAR Attending Unavailable MARTIN POST MD Primary Care Unavailab Dilshad LEDESMA, CHAR Attending Gagan MESA MD., DR. SANDRA Walker Consulting UnavailMARTIN Martins MD Primary Care Unavailab Dilshad LEDESMA, CHAR Consulting Unavailable JASPREET RILEY MD Consulting Unavailable Allergies Allergy Classification Reported Allergen(s) Allergy Type Date of Onset Reaction(s) Facility (1 source) Acetaminophen; Translations: [acetaminophen] Drug Allergy Weal (disorder) [facility] (1 source) Amoxicillin; Translations: [amoxicillin] Drug Allergy Weal (disorder) [facility] (1 source) celecoxib; Translations: [celecoxib] Drug Allergy Vomiting (disorder), Nausea (finding), Diarrhea (finding) [facility] (1 source) Cholecalciferol; Translations: [cholecalciferol ] Drug Allergy Eruption of skin (disorder) [facility] (1 source) Ciprofloxacin; Translations: [ciprofloxacin] Drug Allergy Itching (finding) [facility] (1 source) Citalopram; Translations: [citalopram] Drug Allergy Unknown (qualifier value) [facility] (1 source) Codeine; Translations: [codeine] Drug Allergy Weal (disorder) [facility] (1 source) cyclobenzaprine; Translations: [cyclobenzaprine ] Drug Allergy Nausea (finding) [facility] (1 source) diazePAM; Translations: [diazepam] Drug Allergy Weal (disorder) [facility] (1 source) Doxycycline; Translations: [doxycycline] Drug Allergy Unknown (qualifier value) [facility] (1 source) HYDROcodone; Translations: [hydrocodone] Drug Allergy Nausea (finding) [facility] (1 source) Lisinopril; Translations: [lisinopril] Drug Allergy Cough (finding) [facility] (1 source) meloxicam; Translations: [meloxicam] Drug Allergy Unknown (qualifier value) [facility] (1 source) Methocarbamol; Translations: [methocarbamol] Drug Allergy Eruption of skin (disorder) [facility] (1 source) nabumetone; Translations: [nabumetone] Drug Allergy Eruption of skin (disorder) [facility] (1 source) Naproxen; Translations: [naproxen] Drug Allergy Nausea (finding) [facility] (1 source) Omeprazole; Translations: [omeprazole] Drug Allergy Nausea (finding) [facility] (1 source) Pramipexole; Translations: [pramipexole] Drug Allergy Unknown (qualifier value) [facility] (1 source) raNITIdine; Translations: [ranitidine] Drug Allergy Weal (disorder) [facility] (1 source) rOPINIRole; Translations: [ropinirole] Drug Allergy Eruption of skin (disorder) [facility] Medications Current Medications Medication Drug Class(es) Dates Sig (Normalized) Sig (Original) albuterol 0.833 mg/ml / ipratropium bromide 0.167 mg/ml inhalation solution (1 source) Anticholinergic, beta2-Adrenergic Agonist Start: 11-14-2021 take 3 mL by inhalation twice daily albuterol-ipratro pium 2.5 mg-0.5 mg/3 mL inhalation solution INHALE 3ML VIA NEBULIZER TWICE DAILY Start Date: 11/14/21 Status: Ordered calcium carbonate 1500 mg oral tablet (1 source) Start: 11-14-2021 take 1 tablet by mouth twice daily calcium (as carbonate) 600 mg oral tablet TAKE 1 TABLET BY MOUTH TWICE DAILY Start Date: 11/14/21 Status: Ordered estradiol 0.5 mg oral tablet (1 source) Estrogen Start: 11-14-2021 take 1 tablet by mouth once daily estradiol 0.5 mg oral tablet TAKE 1 TABLET BY MOUTH DAILY Start Date: 11/14/21 Status: Ordered furosemide 40 mg oral tablet (1 source) Loop Diuretic Start: 11-14-2021 take 1 tablet by mouth once daily furosemide 40 mg oral tablet TAKE 1 TABLET BY MOUTH DAILY Start Date: 11/14/21 Status: Ordered LORazepam 1 mg oral tablet (1 source) Benzodiazepine Start: 11-14-2021 take 1 tablet by mouth once daily as needed for anxiety LORazepam 1 mg oral tablet TAKE 1 TABLET BY MOUTH DAILY NEEDED FOR ANXIETY Start Date: 11/14/21 Status: Ordered losartan potassium 25 mg oral tablet (1 source) Angiotensin 2 Receptor Kemal Start: 11-14-2021 take 1 tablet by mouth once daily losartan 25 mg oral tablet TAKE 1 TABLET BY MOUTH DAILY Start Date: 11/14/21 Status: Ordered magnesium oxide 400 mg oral tablet (1 source) Start: 11-14-2021 End: 11-24-2021 magnesium oxide 400 mg oral tablet Dose : 400 mg = 1 tab(s), Oral, TID, # 10 tab(s), 0 Refill(s) Start Date: 11/14/21 Stop Date: 11/24/21 Status: Ordered metoprolol tartrate 50 mg oral tablet (1 source) beta-Adrenergic Kemal Start: 11-14-2021 take 1 tablet by mouth twice daily Metoprolol Tartrate 50 mg oral tablet TAKE 1 TABLET BY MOUTH TWICE DAILY Start Date: 11/14/21 Status: Ordered omeprazole 20 mg delayed release oral capsule (1 source) Proton Pump Inhibitor Start: 11-14-2021 take 1 capsule by mouth once daily omeprazole 20 mg oral delayed release capsule TAKE 1 CAPSULE BY MOUTH EVERY DAY Start Date: 11/14/21 Status: Ordered Potassium Chloride (1 source) Start: 11-14-2021 take 1 tablet by mouth twice daily Potassium Chloride (Umt-Cmso-Oou M20) 20 mEq oral tablet, extended release TAKE 1 TABLET BY MOUTH TWICE DAILY Start Date: 11/14/21 Status: Ordered simvastatin 20 mg oral tablet (1 source) HMG-CoA Reductase Inhibitor Start: 11-14-2021 take 1 tablet by mouth once daily at bedtime simvastatin 20 mg oral tablet TAKE 1 TABLET BY MOUTH ONCE DAILY AT BEDTIME Start Date: 11/14/21 Status: Ordered Vitamin D3 50 mcg (2000 intl units) oral tablet (1 source) Start: 11-14-2021 Vitamin D3 50 mcg (2000 intl units) oral tablet Dose : 50 mcg = 1 tab(s), Oral, Daily, # 60 tab(s), 0 Refill(s) Start Date: 11/14/21 Status: Ordered Problems Problem Classification Problem Date Documented Date Episodic/Chronic Anxiety disorders (1 source) Anxiety 11-13-2021 Chronic Chronic obstructive pulmonary disease and bronchiectasis (1 source) Chronic obstructive lung disease 11-13-2021 Chronic Disorders of lipid metabolism (1 source) Hypercholesterolemia 11-13-2021 Chronic Disorders of teeth and jaw (1 source) Edentulous 11-13-2021 Chronic Esophageal disorders (1 source) Gastroesophageal reflux disease 11-13-2021 Chronic Essential hypertension (1 source) Hypertensive disorder 11-13-2021 Chronic Other female genital disorders (2 sources) Mild vulvar dysplasia; 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] Onset: Episodic Other upper respiratory disease (1 source) Seasonal allergy 11-13-2021 Chronic Reina-; endo-; and myocarditis; cardiomyopathy (except that caused by tuberculosis or sexually transmitted disease) (1 source) Cardiomyopathy 11-13-2021 Chronic Sexually transmitted infections (not HIV or hepatitis) (1 source) 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 Unclassified (1 source) 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 Results Test Name Value Interpretation Reference Range Facil ity Encounters Encounter Date Encounter Type Care Provider Facility Start: 01-23-2022 End: 01-24-2022 ambulatory CHAR ALVARADO MD Facility:A Start: 12-23-2021 End: 12-23-2021 ambulatory CHAR ALVARADO MD Facility:A Start: 12-09-2021 End: 12-10-2021 ambulatory CHAR ALVARADO MD Facility:A Start: 11-14-2021 End: 11-15-2021 ambulatory CHAR ALVARADO MD Facility:A Start: 11-14-2021 End: 11-14-2021 Patient encounter procedure CHAR ALVARADO MD [facility] Procedures Date Procedure Procedure Detail Performing Clinician Start: 08-15-2021 Biopsy of vulva CHAR ALVARADO MD Payers Date Payer Category Payer Medicare [id number] 1960 Unknown [id number] 2.16.8 [id number] 1960 Unknown [id number] [id number] [id number] 1960 Unknown [id number] 2.16.8 [id number] 1960 Unknown [id number] 2.16.8 [id number] Social History Date Type Detail Facility Start: 11-13-2021 Tobacco smoking status Heavy t obacco smoker (finding) [facility] Sex Assigned At Sex [facility] Evaluation + Plan note Note Date & Type Note Facility Evaluation + Plan note Future Appointments Appointment Date:12/12/2021 09:00:00 AM Scheduled Provider:CHAR ALVARADO MD Location:[facility] Appointment Type:SO OV Post Op [facility] Hospital course Narrative Note Date & Type Note Facility Hospital course Narrative No data available for this section [facility] Hospital Discharge instructions Note Date & Type Note Facility Hospital Discharge instructions No data available for this section [facility] Progress note Note Date & Type Note Facility Progress note No data available for this section [facility] Summary Purpose Family History No Family History Records Found Advance Directives No Advanced Directives Records Found Additional Source Comments Care Team (unrecognized sect ion and content) Care Team Personnel Name: MARTIN POST MD Member Role: Primary Care Physician Address: Address: [address] [place] [address]- [place] Name: CHAR ALVARADO MD Position: P4 Oncology Provider Med Service: [facility] Infusion Therapy Member Role: Gynecologic Oncologist Address: Address: [facility] [address] [place] [address] Care Team Related Persons Name: RAZIA JUAN LUIS INFORMATION SOURCE (unrecogn ized section and content) FOR RECORDS PERTAINING TO PATIENTS WHO ARE OR HAVE BEEN ENROLLED IN A CHEMICAL DEPENDENCY/SUBSTANCEABUSE PROGRAM, SOME INFORMATION MAY BE OMITTED. This clinical summary was aggregated from multiple sources. Caution should be exercised in using it in the provision of clinical care. This summary normalizes information from multiple sources, and as a consequence, information in this document may materially change the coding, format and clinical context of patient data. In addition, data may be omitted in some cases. CLINICAL DECISIONS SHOULD BE BASED ON THE PRIMARY CLINICAL RECORDS. [employer] [facility]. provides no warranty or guarantee of the accuracy or completeness of information in this document.
[2023-04-18 12:08] LABS: HPV APTIMA, High Risk Negative (Negative)
== END | disposition home or self-care (01) ==
LOC: LABSPEC 13:26
PROVIDERS: PCP Internal Medicine; Referring Provider Obstetrics & Gynecology; Visit Provider Obstetrics & Gynecology
DX: Z12.4 Encounter for screening for malignant neoplasm of cervix (principal)
CPT/HCPCS: 87624; 88175; G0145

== ENCOUNTER → 2023-04-20 | Outpatient (CLI) | payer MEDICARE, SELFPAY ==
--- NOTE | 2023-04-20 | VUL_PTH ---
PATHOLOGY RESULTS PATIENT: LISA GARZA LOC: [facility] U#:[id number] AGE/SX: 62/F ROOM: RE04/20/[address]: Dr. Joanie Tran DO : 1960 BED: DIS: 04/20/2023 SPEC #: [id number] RECD: 04/20/23 12:51 STATUS: JUDY RAQUEL #: [id number] RAYMOND: 04/20/23 00:[address]: Joanie Tran DEPT: SURGICAL PATHOLOGY RECD BY: Hunter Turk ENTERED: 04/20/23 12:51 SP TYPE: VULVA BX OTHR DR: Dr. Yosi Evans MD Tissues: Vulva, NOS Procedures: Surgery Specimen Level IV HEADER OPERATION: Vulvar biopsy PRE-OP DIAGNOSIS: Vulvar cancer TISSUE SUBMITTED: Perineum MICROSCOPIC DIAGNOSIS Perineum, biopsy: Hyperkeratosis and mild dermal chronic inflammation. Negative for dysplasia/malignancy. See comment. TIM:yaa 04/21/2023 COMMENT Clinical correlation and appropriate follow up are necessary. 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 Case has been reviewed in consultation with Dr. Jones who concurs with the above diagnosis. IDC:AM MICROSCOPIC DESCRIPTION Slides are reviewed. GROSS DESCRIPTION Received is one container labeled with the patient's name and not further designated. The specimen consists of one irregular fragment of emanuel-white skin measuring 0.5 x 0.5 x 0.1 cm. The specimen is inked and submitted entirely in one cassette. / TIM:yaa 04/20/2023 TC:3 CPT: 11521
--- OUTSIDE RECORDS SUMMARY | 2023-04-20 12:21 | XMS RPT_ITS | CCD ---
Author Name Unknown Address [address] [place] [address] Organization [facility] Care Team Providers Care Trust Officer Name Role Phone SEJAL LEDESMA, MARTIN Alicea [...] Acetaminophen; Translations: [acetaminophen] Drug Allergy Weal (disorder) [facility] (1 source) Amoxicillin; Translations: [amoxicillin] Drug Allergy Weal (disorder) [facility] (1 source) celecoxib; Translations: [celecoxib] Drug Allergy Vomiting (disorder), Nausea (finding), Diarrhea (finding) [facility] (1 source) Cholecalciferol; Translations: [cholecalciferol ] Drug Allergy Eruption of skin (disorder) [facility] (1 source) Ciprofloxacin; Translations: [ciprofloxacin] Drug Allergy Itching (finding) [facility] (1 source) Citalopram; Translations: [citalopram] Drug Allergy Unknown (qualifier value) [facility] (1 source) Codeine; Translations: [codeine] Drug Allergy Weal (disorder) [facility] (1 source) cyclobenzaprine; Translations: [cyclobenzaprine ] Drug Allergy Nausea (finding) [facility] (1 source) diazePAM; Translations: [diazepam] Drug Allergy Weal (disorder) [facility] (1 source) Doxycycline; Translations: [doxycycline] Drug Allergy Unknown (qualifier value) [facility] (1 source) HYDROcodone; Translations: [hydrocodone] Drug Allergy Nausea (finding) [facility] (1 source) Lisinopril; Translations: [lisinopril] Drug Allergy Cough (finding) [facility] (1 source) meloxicam; Translations: [meloxicam] Drug Allergy Unknown (qualifier value) [facility] (1 source) Methocarbamol; Translations: [methocarbamol] Drug Allergy Eruption of skin (disorder) [facility] (1 source) nabumetone; Translations: [nabumetone] Drug Allergy Eruption of skin (disorder) [facility] (1 source) Naproxen; Translations: [naproxen] Drug Allergy Nausea (finding) [facility] (1 source) Omeprazole; Translations: [omeprazole] Drug Allergy Nausea (finding) [facility] (1 source) Pramipexole; Translations: [pramipexole] Drug Allergy Unknown (qualifier value) [facility] (1 source) raNITIdine; Translations: [ranitidine] Drug Allergy Weal (disorder) [facility] (1 source) rOPINIRole; Translations: [ropinirole] Drug Allergy Eruption of skin (disorder) [facility] Medications Current Medications Medication [...] tablet by mouth twice daily Potassium Chloride (Ufl-Mkaq-Rrc M20) 20 mEq oral tablet, extended release [...] 11-14-2021 Patient encounter procedure CHAR ALVARADO MD [facility] Procedures Date Procedure Procedure Detail Performing Clinician Start: 08-15-2021 Biopsy of vulva CHAR ALVARADO MD Payers Date Payer Category Payer Medicare [id number] 1960 Unknown [id number] 2.16.8 [id number] 1960 Unknown [id number] 2.16.8 [id number] 1960 Unknown [id number] 2.16.8 [id number] 1960 Unknown [id number] 2.16.8 [id number] Social History Date Type Detail Facility Start: 11-13-2021 Tobacco smoking status Heavy t obacco smoker (finding) [facility] Sex Assigned At Sex [facility] Evaluation + Plan note Note Date & Type Note Facility Evaluation + Plan note Future Appointments Appointment Date:12/12/2021 09:00:00 AM Scheduled Provider:CHAR ALVARADO MD Location:[facility] Appointment Type:SO OV Post Op [facility] Hospital course Narrative Note Date & Type Note Facility Hospital course Narrative No data available for this section [facility] Hospital Discharge instructions Note Date & Type Note Facility Hospital Discharge instructions No data available for this section [facility] Progress note Note Date & Type Note Facility Progress note No data available for this section [facility] Summary Purpose Family History No Family History Records Found Advance Directives No Advanced Directives Records Found Additional Source Comments Care Team (unrecognized sect ion and content) Care Team Personnel Name: MARTIN POST MD Member Role: Primary Care Physician Address: Address: [address] [place] [address]- [place] Name: CHAR ALVARADO MD Position: P4 Oncology Provider Med Service: [facility] Infusion Therapy Member Role: Gynecologic Oncologist Address: Address: [facility] [address] [place] [address] Care Team Related Persons Name: RAZIA JUAN [...] BE BASED ON THE PRIMARY CLINICAL RECORDS. [employer] [facility]. provides no warranty or guarantee of the accuracy or completeness of information in this document.
== END | disposition home or self-care (01) ==
LOC: LABSPEC 12:01
PROVIDERS: PCP Internal Medicine; Referring Provider Obstetrics & Gynecology; Visit Provider Obstetrics & Gynecology
DX: N90.89 Other specified noninflammatory disorders of vulva and perineum (principal)
CPT/HCPCS: 88305

== ENCOUNTER → 2023-05-15 | Outpatient (CLI) | payer MEDICARE, SELFPAY ==
--- OUTSIDE RECORDS SUMMARY | 2023-05-15 11:01 | XMS RPT_ITS | CCD ---
Author Name Unknown Address [address] [place] [address] Organization [facility] Care Team Providers Care Paid Search Manager Name Role Phone SEJAL LEDESMA, MARTIN Alicea Primary Care Physician [phone] JENNY LEDESMA, CHAR Attending MARTIN Donato MD [...] Acetaminophen; Translations: [acetaminophen] Drug Allergy Weal (disorder) [facility] (1 source) Amoxicillin; Translations: [amoxicillin] Drug Allergy Weal (disorder) [facility] (1 source) celecoxib; Translations: [celecoxib] Drug Allergy Vomiting (disorder), Nausea (finding), Diarrhea (finding) [facility] (1 source) Cholecalciferol; Translations: [cholecalciferol ] Drug Allergy Eruption of skin (disorder) [facility] (1 source) Ciprofloxacin; Translations: [ciprofloxacin] Drug Allergy Itching (finding) [facility] (1 source) Citalopram; Translations: [citalopram] Drug Allergy Unknown (qualifier value) [facility] (1 source) Codeine; Translations: [codeine] Drug Allergy Weal (disorder) [facility] (1 source) cyclobenzaprine; Translations: [cyclobenzaprine ] Drug Allergy Nausea (finding) [facility] (1 source) diazePAM; Translations: [diazepam] Drug Allergy Weal (disorder) [facility] (1 source) Doxycycline; Translations: [doxycycline] Drug Allergy Unknown (qualifier value) [facility] (1 source) HYDROcodone; Translations: [hydrocodone] Drug Allergy Nausea (finding) [facility] (1 source) Lisinopril; Translations: [lisinopril] Drug Allergy Cough (finding) [facility] (1 source) meloxicam; Translations: [meloxicam] Drug Allergy Unknown (qualifier value) [facility] (1 source) Methocarbamol; Translations: [methocarbamol] Drug Allergy Eruption of skin (disorder) [facility] (1 source) nabumetone; Translations: [nabumetone] Drug Allergy Eruption of skin (disorder) [facility] (1 source) Naproxen; Translations: [naproxen] Drug Allergy Nausea (finding) [facility] (1 source) Omeprazole; Translations: [omeprazole] Drug Allergy Nausea (finding) [facility] (1 source) Pramipexole; Translations: [pramipexole] Drug Allergy Unknown (qualifier value) [facility] (1 source) raNITIdine; Translations: [ranitidine] Drug Allergy Weal (disorder) [facility] (1 source) rOPINIRole; Translations: [ropinirole] Drug Allergy Eruption of skin (disorder) [facility] Medications Current Medications Medication Drug [...] tablet by mouth twice daily Potassium Chloride ([id number] M20) 20 mEq oral tablet, extended release [...] 11-14-2021 Patient encounter procedure CHAR ALVARADO MD [facility] Procedures Date Procedure Procedure Detail Performing Clinician Start: 08-15-2021 Biopsy of vulva CHAR ALVARADO MD Payers Date Payer Category Payer Medicare [id number] 1960 Unknown [id number] 1960 Unknown [id number] 1960 Unknown [id number] 1960 Unknown [id number] Social History Date Type Detail Facility Start: 11-13-2021 Tobacco smoking status Heavy t obacco smoker (finding) [facility] Sex Assigned At Sex [facility] Evaluation + Plan note Note Date & Type Note Facility Evaluation + Plan note Future Appointments Appointment Date:12/12/2021 09:00:00 AM Scheduled Provider:CHAR ALVARADO MD Location:[facility] Appointment Type:SO OV Post Op [facility] Hospital course Narrative Note Date & Type Note Facility Hospital course Narrative No data available for this section [facility] Hospital Discharge instructions Note Date & Type Note Facility Hospital Discharge instructions No data available for this section [facility] Progress note Note Date & Type Note Facility Progress note No data available for this section [facility] Summary Purpose Family History No Family History Records Found Advance Directives No Advanced Directives Records Found Additional Source Comments Care Team (unrecognized sect ion and content) Care Team Personnel Name: MARTIN POST MD Member Role: Primary Care Physician Address: Address: [address] [place] [phone] [place] Name: CHAR ALVARADO MD Position: P4 Oncology Provider Med Service: [facility] Infusion Therapy Member Role: Gynecologic Oncologist Address: Address: [facility] [address] [place] [address] Care Team Related Persons Name: RAZIA JUAN [...] BE BASED ON THE PRIMARY CLINICAL RECORDS. [employer] [facility]. provides no warranty or guarantee of the accuracy or completeness of information in this document.
[2023-05-15 12:20] LABS: Anion Gap 6 (5-15); BUN 15 mg/dL (7-18); BUN/Creat Ratio 16.4 RATIO (10-20); Calcium,Total 10.3 mg/dL (8.5-10.1); Chloride 98 mmol/L (98-107); Creatinine, Serum 0.91 mg/dL (0.55-1.02); EST Glomerular Filtration Rate 66 mL/min (>60); Est Glom Filt Rate - Afr Amer 80 mL/min (>60); Glucose 117 mg/dL (74-106); Magnesium 1.7 mg/dL (1.6-2.6); Potassium 4.1 mmol/L (3.5-5.1); Sodium Level 138 mmol/L (136-145)
[2023-05-15 18:18] LABS: PTHIN 35.8 pg/mL (18.4-80.1)
== END | disposition home or self-care (01) ==
LOC: BIMLAB 10:40
PROVIDERS: PCP Internal Medicine; Visit Provider Internal Medicine
DX: E83.42 Hypomagnesemia (principal); E83.52 Hypercalcemia
CPT/HCPCS: 36415; 80048; 83735; 83970

== ENCOUNTER → 2023-08-10 | Outpatient (CLI) | payer MEDICARE, SELFPAY ==
[2023-08-10 09:06] LABS: AST(SGOT) 56 U/L (15-37); Alanine Aminotransfer ALT/SGPT 56 U/L (13-56); Alkaline Phosphatase 117 U/L (45-117); Bilirubin, Direct 0.34 mg/dL (0.00-0.30); Cholesterol 142 mg/dL (200); Globulin 4.2 g/dL (2.2-4.2); High Density Lipoprotein 53 mg/dL; Protein, Total 8.2 g/dL (6.4-8.2); Triglycerides 97 mg/dL; Very Low Density Lipoprotein 19 mg/dL (5-40)
== END | disposition home or self-care (01) ==
PROVIDERS: PCP Internal Medicine; Referring Provider Internal Medicine Cardiovascular Disease; Visit Provider Internal Medicine Cardiovascular Disease
DX: E78.00 Pure hypercholesterolemia, unspecified (principal)
CPT/HCPCS: 36415; 80061; 80076

== ENCOUNTER → 2023-08-17 | Outpatient (CLI) | payer MEDICARE, SELFPAY ==
[2023-08-17 10:20] LABS: Absolute Lymphocyte Count 2.09 X10^3/uL (0.83-4.51); Absolute Neutrophil Count 5.4 X10^3/uL (2.0-7.7); Basophil# 0.08 X10^3/uL; Basophil% 0.9 % (0-1); Eosinophil# 0.35 X10^3/uL; Hematocrit 45.5 % (37-47); Lymphocyte # 2.09 X10^3/ul (0.83-4.51); Lymphocyte % 23.8 % (19-41); Mean Corpuscular Hgb 31.4 pg (27.0-32.0); Mean Corpuscular Volume 95.4 fL (81-99); Mean Platelet Vol. 10.8 fl (6.2-12.0); Monocyte# 0.82 X10^3/uL; Monocyte% 9.3 % (0-10); NRBC Flagged by Analyzer 0 % (0-5); Neutrophil # 5.42 X10^3/uL (2.7-7.7); Neutrophil % 61.7 % (47-70); Platelet Count 193 K/mm3 (150-450); Red Blood Count 4.77 M/mm3 (4.2-5.4); White Blood Count 8.8 K/mm3 (4.4-11.0)
[2023-08-17 10:36] LABS: Anion Gap 3 (5-15); BUN 26 mg/dL (7-18); Calcium,Total 10.3 mg/dL (8.5-10.1); Chloride 102 mmol/L (98-107); EST Glomerular Filtration Rate 60 mL/min (>60); Est Glom Filt Rate - Afr Amer 72 mL/min (>60); Glucose 122 mg/dL (74-106); Magnesium 1.8 mg/dL (1.6-2.6); Potassium 4.2 mmol/L (3.5-5.1); Sodium Level 137 mmol/L (136-145)
== END | disposition home or self-care (01) ==
LOC: LAB 09:31
PROVIDERS: PCP Internal Medicine; Referring Provider Internal Medicine; Visit Provider Internal Medicine
DX: K52.9 Noninfective gastroenteritis and colitis, unspecified (principal); E83.42 Hypomagnesemia; I10 Essential (primary) hypertension
CPT/HCPCS: 36415; 80048; 83735; 85025

== ENCOUNTER → 2023-11-16 | Outpatient (CLI) | payer MEDICARE, SELFPAY ==
[2023-11-16 12:29] LABS: AST(SGOT) 44 U/L (15-37); Alanine Aminotransfer ALT/SGPT 44 U/L (13-56); Albumin, Serum 4.4 g/dL (3.2-5.0); Alkaline Phosphatase 159 U/L (45-117); Anion Gap 6 (5-15); BUN 20 mg/dL (7-18); BUN/Creat Ratio 21.6 RATIO (10-20); Calcium,Total 10.3 mg/dL (8.5-10.1); Chloride 97 mmol/L (98-107); Creatinine, Serum 0.93 mg/dL (0.55-1.02); EST Glomerular Filtration Rate 65 mL/min (>60); Est Glom Filt Rate - Afr Amer 79 mL/min (>60); Globulin 4.5 g/dL (2.2-4.2); Glucose 124 mg/dL (74-106); Potassium 4.3 mmol/L (3.5-5.1); Protein, Total 8.9 g/dL (6.4-8.2); Sodium Level 135 mmol/L (136-145)
== END | disposition home or self-care (01) ==
LOC: BIMLAB 10:11
PROVIDERS: PCP Internal Medicine; Referring Provider Internal Medicine; Visit Provider Internal Medicine
DX: E78.5 Hyperlipidemia, unspecified (principal); E11.9 Type 2 diabetes mellitus without complications
CPT/HCPCS: 36415; 80053

== ENCOUNTER → 2023-12-04 | Outpatient (CLI) | payer MEDICARE, SELFPAY ==
--- NOTE | 2023-12-04 07:34 | ECHOD_ITS ---
Reason For Study: CMP Procedure This was a 2D Doppler, Color Flow transthoracic echocardiogram. Exam performed in department. Left Ventricle Normal LV size. The left ventricular ejection fraction is 25 %. Stage 2 diastolic dysfunction. There is severe global hypokinesis of the left ventricle. Right Ventricle Normal RV size. ICD or pacer leads identified within the right ventricle. Normal systolic function. Atria Normal left atrium. Normal right atrium. ICD or pacer leads identified within the right atrium. Mitral Valve Normal mitral valve. Mild (1+) eccentric mitral valve insufficiency. Tricuspid Valve Normal tricuspid valve. Aortic Valve Trisinus/trileaflet aortic valve. Pulmonic Valve Normal pulmonic valve. Great Vessels Normal aortic root. The pulmonary artery is normal size. Normal inferior vena cava. Pericardium/Pleural No pericardial effusion. MMode/2D Measurements & Calculations LVIDd: 5.2 cm IVSd: 0.68 cm LVOT diam: 1.7 cm LVIDs: 4.1 cm LVPWd: 0.80 cm LVOT area: 2.2 cm2 RVDd: 2.5 cm FS: 22.4 % LAV(MOD-bp): 35.3 ml LVAd ap4: 25.8 cm2 SV(MOD-sp4): 30.6 ml LAV(MOD-bp) Indexed: 22.7 ml/m2 LVLd ap4: 7.3 cm LAV(MOD-sp2): 29.0 ml EDV(MOD-sp4): 74.9 ml LAV(MOD-sp4): 36.4 ml EDV(sp4-el): 77.4 ml LVAs ap4: 18.7 cm2 LVLs ap4: 6.5 cm ESV(MOD-sp4): 44.3 ml ESV(sp4-el): 45.7 ml EF(MOD-sp4): 40.9 % EF(sp4-el): 40.9 % SV(sp4-el): 31.7 ml LA A4 area: 14.8 cm2 LA dimension(2D): 2.9 cm RA A4 area: 11.4 cm2 TAPSE: 1.8 cm Time Measurements MV dec time: 0.14 sec Doppler Measurements & Calculations MV E max benson: 81.5 cm/sec Lat Peak E' Benson: 7.5 cm/sec Med Peak E' Benson: 4.0 cm/sec MV A max benson: 69.5 cm/sec E/E' lat: 10.9 E/E' med: 20.5 MV E/A: 1.2 MV V2 max: 74.5 cm/sec Ao V2 max: 120.6 cm/sec MV max P.2 mmHg MV dec slope: 590.2 cm/sec2 Ao max P.8 mmHg MV V2 mean: 50.4 cm/sec Ao V2 mean: 83.1 cm/sec MV mean P.1 mmHg Ao mean P.2 mmHg MV V2 VTI: 27.5 cm Ao V2 VTI: 31.2 cm AV (velocity ratio): 0.87 MVA(VTI): 2.1 cm2 LIVAN(I,D): 1.9 cm2 LIVAN(V,D): 1.9 cm2 LV V1 max: 105.5 cm/sec SV(LVOT): 58.6 ml PA V2 max: 73.5 cm/sec LV V1 max P.5 mmHg PA V2 mean: 46.0 cm/sec LV V1 mean P.4 mmHg LV V1 mean: 72.9 cm/sec LV V1 VTI: 27.1 cm ECHO/Echo Complete Interpretation Summary The left ventricular ejection fraction is 25 %. Stage 2 diastolic dysfunction. Normal LV size. Mild (1+) eccentric mitral valve insufficiency. Compared to previous study, the left ventricular systolic function has worsened .. Ordering Physician: Stewart Diane Referring Physician: Stewart Diane Performed By: Lacey Mathias RCS
== END | disposition home or self-care (01) ==
PROVIDERS: PCP Internal Medicine; Referring Provider Internal Medicine Cardiovascular Disease; Visit Provider Internal Medicine Cardiovascular Disease
DX: I42.8 Other cardiomyopathies (principal)
CPT/HCPCS: 93306

== ENCOUNTER → 2023-12-15 | Outpatient (CLI) | payer MEDICARE, SELFPAY ==
--- NOTE | 2023-12-15 17:31 | STRESSREP ---
Stress Test Report Pharmacologic myocardial perfusion stress test. 63-year-old lady with a history of dilated cardiomyopathy status post ICD implantation Resting EKG demonstrates sinus rhythm with ventricular pacing with a rate of 73 bpm. Resting blood pressure is 132/82 mmHg. 0.4 mg of regadenoson was infused per usual protocol followed by rapid intravenous saline flush injection. Continuous EKG monitoring was performed. The maximum heart rate was 118 bpm which was 74% of max impacted heart rate the maximum workload was 1 metabolic equivalent. At rest there were no ST or T wave changes noted to suggest ischemia and at peak infusion nonspecific ST changes were noted which did not meet the criteria for ischemia. No clinical angina is noted. The final blood pressure was 118/72 mmHg. Myocardial perfusion protocol. 11.1 mCi of technetium 99m sestamibi was injected at rest. 0.4 mg of regadenoson was infused per usual protocol. At peak infusion 33.8 mCi of technetium 99m sestamibi was injected stress images were obtained stress and rest images were reconstructed and compared in the short axis vertical long and horizontal long axis. Gated images were also obtained. Perfusion SPECT analysis: Review of the stress images demonstrate normal uptake of tracer noted in all areas of the myocardium. The resting images similar demonstrated normal uptake of tracer noted in all areas of the myocardium. No areas of reversibility are noted to suggest ischemia and no previous infarct is noted. A small area of the basal septal wall appeared to have reduced perfusion on the stress and resting images likely from pacemaker activation Gated SPECT analysis: The gated ejection fraction is 63%. Conclusion: Normal pharmacologic myocardial perfusion stress test. Preserved ejection fraction.
== END | disposition home or self-care (01) ==
LOC: CVS 05:58
PROVIDERS: PCP Internal Medicine; Referring Provider Nurse Practitioner Family; Visit Provider Nurse Practitioner Family
DX: R94.31 Abnormal electrocardiogram [ECG] [EKG] (principal); I50.22 Chronic systolic (congestive) heart failure; I11.0 Hypertensive heart disease with heart failure; J44.9 Chronic obstructive pulmonary disease, unspecified; I42.8 Other cardiomyopathies; E11.9 Type 2 diabetes mellitus without complications; Z95.810 Presence of automatic (implantable) cardiac defibrillator
CPT/HCPCS: 78452; 93017; A9500; A4216; J2785

== ENCOUNTER → 2024-01-12 | Outpatient (CLI) | payer MEDICARE, SELFPAY ==
[2024-01-12 12:06] LABS: Absolute Neutrophil Count 5.7 X10^3/uL (2.0-7.7); Basophil# 0.06 X10^3/uL; Basophil% 0.7 % (0-1); Eosinophil# 0.29 X10^3/uL; Eosinophils% 3.4 % (0-5); Hematocrit 43.8 % (37-47); Hemoglobin 14.7 g/dL (12.0-15.0); Lymphocyte % 19.9 % (19-41); Mean Corp Hgb Conc 33.6 g/dL (32-36); Mean Corpuscular Hgb 31.7 pg (27.0-32.0); Mean Corpuscular Volume 94.4 fL (81-99); Mean Platelet Vol. 12.3 fl (6.2-12.0); Monocyte# 0.72 X10^3/uL; Monocyte% 8.4 % (0-10); NRBC Flagged by Analyzer 0 % (0-5); Neutrophil # 5.72 X10^3/uL (2.7-7.7); Platelet Count 189 K/mm3 (150-450); RBC Distribution Width CV 12.1 % (11.6-14.6); RBC Distribution Width SD 42.3 fl (35.1-43.9); Red Blood Count 4.64 M/mm3 (4.2-5.4); White Blood Count 8.5 K/mm3 (4.4-11.0)
[2024-01-12 12:35] LABS: Anion Gap 5 (5-15); BUN 15 mg/dL (7-18); BUN/Creat Ratio 15.3 RATIO (10-20); Calcium,Total 9.3 mg/dL (8.5-10.1); Chloride 98 mmol/L (98-107); Creatinine, Serum 0.98 mg/dL (0.55-1.02); EST Glomerular Filtration Rate 61 mL/min (>60); Est Glom Filt Rate - Afr Amer 74 mL/min (>60); Glucose 128 mg/dL (74-106); Magnesium 1.1 mg/dL (1.6-2.6); Potassium 3.8 mmol/L (3.5-5.1); Sodium Level 135 mmol/L (136-145)
[2024-01-12 16:40] LABS: BNP,B-Type NATRIURETIC PEPTIDE 39.3 pg/mL (0-100)
== END | disposition home or self-care (01) ==
LOC: BIMLAB 09:24
PROVIDERS: PCP Internal Medicine; Referring Provider Nurse Practitioner Gerontology; Visit Provider Nurse Practitioner Gerontology
DX: R06.02 Shortness of breath (principal); I50.22 Chronic systolic (congestive) heart failure; E11.9 Type 2 diabetes mellitus without complications; R53.1 Weakness; E83.42 Hypomagnesemia
CPT/HCPCS: 36415; 80048; 83735; 83880; 84443; 85025

== ENCOUNTER 2024-02-16 07:56 | Emergency (ER) | payer MEDICARE, SELFPAY ==
[2024-02-16] VITALS (7 sets, daily range): BP systolic 112–150; BP diastolic 75–83; PULSE 64–90; RESP 16–22; TEMP 36.6; O2SAT 95–99; BMI 45.1
--- NOTE | 2024-02-16 08:05 | ED.RN ---
Hx of copd, c/o has had a productive cough since last night. Has been awake since 0 last night and coughing up clear/thin
--- NOTE | 2024-02-16 08:10 | EKG12_ITS ---
Test Reason : SOB Blood Pressure : */* mmHG Vent. Rate : 70 BPM Atrial Rate : 70 BPM P-R Int : 130 ms QRS Dur : 112 ms QT Int : 416 ms P-R-T Axes : 79 -82 79 degrees QTcB Int : 449 ms Atrial-sensed ventricular-paced rhythm Biventricular pacemaker detected Abnormal ECG Confirmed by ANGELA LEDESMA, ROBSON ([id number]), non linear editor SOLITARIO BRAY ([id number]) on 02/17/2024 12:39:35 PM Referred By: Confirmed By: ROBSON MILLER MD
[2024-02-16] MEDS: Ipratropium/Albuterol Sulfate 3 ML AMPUL.NEB INHALATION (08:17)
[2024-02-16] MEDS: predniSONE 20 MG Tablet 60 MG PO (08:17)
--- NOTE | 2024-02-16 08:30 | EX.ED.DYSGE1 ---
HPI History of Present Illness Chief Complaint: Shortness of Breath Narrative Narrative: Patient is a 63-year-old female with past medical history of ICD, COPD, type 2 diabetes, heart failure, GERD, anxiety, depression who presents to the emergency department the chief complaint shortness of breath. Patient states that starting yesterday she had difficulty breathing that progressively worsened and today. States that she developed a cough that is noted to have clear sputum. States that her friend told her that bronchitis is going around therefore she was concerned and came here today for further evaluation management. Patient states that her last albuterol was at 4:00 in the morning. Patient notes that she had difficulty sleeping secondary to her breathing. Patient states that later this month she is supposed to go to [place] to follow-up with physician to have her lead of her AICD replaced as well as the battery. [facility] Medical History ICD (implantable cardioverter-defibrillator) battery depletion Malfunction of implantable defibrillator ventricular (ICD) lead Shortness of breath Hypercalcemia Vertigo Chronic diarrhea Weight loss, non-intentional Health care maintenance Hyperlipidemia Nonischemic cardiomyopathy Non-rheumatic tricuspid valve insufficiency Chronic systolic (congestive) heart failure Type 2 diabetes mellitus Chronic sinusitis Vitamin D deficiency Essential (primary) hypertension Hypomagnesemia Sinusitis Electrolyte abnormality Alcoholic cardiomyopathy Dizziness and giddiness Family history of CVA Family history of hyperlipidemia Family history of hypertension COPD (chronic obstructive pulmonary disease) GERD (gastroesophageal reflux disease) Depression with anxiety Cancer of vulva Nicotine dependence in remission Home Medications ?Medication ?Instructions ?Recorded ?Last Taken ?Type cholecalciferol (vitamin D3) 50 50 mcg PO DAILY 01/15/21 Unknown History mcg (2,000 unit) capsule nebulizer accessories #1 ea 07/05/21 Unknown Rx potassium chloride 20 mEq 20 meq PO BID #180 tabs 02/11/23 Unknown Rx tablet,extended release(part/cryst) simvastatin 20 mg tablet 20 mg PO QHS #90 tabs 05/21/23 Unknown Rx estradiol 0.5 mg tablet 0.5 mg PO DAILY #90 tabs 05/22/23 Unknown Rx furosemide 40 mg tablet 40 mg PO DAILY #90 tabs 08/18/23 Unknown Rx losartan 25 mg tablet 25 mg PO DAILY #90 tabs 08/18/23 Unknown Rx omeprazole 20 mg capsule,delayed 20 mg PO QDAY #90 caps 10/28/23 Unknown Rx release magnesium oxide 400 mg (241.3 mg 400 mg PO TID 01/27/24 Unknown History magnesium) tablet lorazepam 2 mg tablet 1 mg (1/2 x 2 mg) PO DAILY anxiety 01/28/24 Unknown Rx 1 month #15 tabs albuterol sulfate 2.5 mg/3 mL 2.5 mg (3 mL) inhalation Q4H PRN 01/29/24 Unknown Rx (0.083 %) solution for nebulization shortness of breath or wheezing #90 mL carvedilol 12.5 mg tablet 12.5 mg PO BID this is a dose 02/03/24 Unknown Rx increase #180 tabs prednisone 50 mg tablet 50 mg PO DAILY 5 days #5 tabs 02/16/24 Unknown Rx Allergy/AdvReac Type Severity Reaction Status Date / Time cholecalciferol (vitamin D3) Allergy Severe Rash Verified 02/16/24 07:56 chlorhexidine (From Karena-Hex) Allergy Intermediate Rash Verified 02/16/24 07:56 acetaminophen (From Tylenol) Allergy Hives Verified 02/16/24 07:56 amoxicillin (Amoxicillin) Allergy Hives Verified 02/16/24 07:56 amoxicillin trihydrate (From Allergy Hives Verified 02/16/24 07:56 Trimox) codeine Allergy Hives Verified 02/16/24 07:56 diazepam Allergy Hives Verified 02/16/24 07:56 methocarbamol Allergy Rash Verified 02/16/24 07:56 nabumetone Allergy Rash Verified 02/16/24 07:56 Penicillins Allergy Hives Verified 02/16/24 07:56 ranitidine HCl (From Zantac) Allergy Hives Verified 02/16/24 07:56 ropinirole Allergy Rash Verified 02/16/24 07:56 lisinopril AdvReac Intermediate Dry Verified 02/16/24 07:56 hacking cough celecoxib (From Celebrex) AdvReac Nausea/Vom/ Verified 02/16/24 07:56 Diarrhea ciprofloxacin AdvReac Itching Verified 02/16/24 07:56 citalopram hydrobromide AdvReac Other Verified 02/16/24 07:56 (From Celexa) cyclobenzaprine HCl (From AdvReac Nausea Verified 02/16/24 07:56 Flexeril) doxycycline AdvReac Other Verified 02/16/24 07:56 hydrocodone bitartrate (From AdvReac Nausea Verified 02/16/24 07:56 Vicodin) meloxicam AdvReac Other Verified 02/16/24 07:56 naproxen (From Naprosyn) AdvReac Nausea Verified 02/16/24 07:56 omeprazole AdvReac Nausea Verified 02/16/24 07:56 pramipexole AdvReac Other Verified 02/16/24 07:56 Family History Father CVA (cerebral vascular accident) Hypertension Diabetes Cancer Mother Diabetes Hypertension Surgical History H/O vulvectomy (~11/2021) History of left heart catheterization (12/31/05) Presence of biventricular implantable cardioverter-defibrillator (ICD) (04/2017) H/O: hysterectomy excision of cancer of vulva Hx of cholecystectomy Social History Smoking Status: Heavy Smoker (>10/day) alcohol intake: former substance use type: does not use caffeine: Yes Type: carbonated beverages Number of servings: 4 and coffee what type of physical activity do you participate in: none additional social history: -Adam ROS ROS ED ROS Narrative Constitutional: Denies any fevers, chills, headaches, lightness, dizziness Eyes: Denies change in vision double vision blurry vision Cardiovascular: Denies chest pain or palpitations Respiratory: Complains of cough and shortness of breath as noted above denies any wheezing Abdomen: Denies abdominal pain nausea vomit diarrhea : Denies any urinary symptoms Neurological: Denies numbness, weakness, tingling Musculoskeletal: Denies back pain Skin: Denies any rashes or lesions EXAM Physical Exam Narrative Exam Narrative: General: Patient lying in bed rest comfortably did not appear to be acute distress Head: Atraumatic, normocephalic Eyes: PERRL body, EOMI black no conjunctival injection noted Neck: Soft, supple, trach midline Cardiovascular: Regular rate and rhythm no murmurs gallops rubs noted Respiratory: Diminished breath sounds bilaterally no rales rhonchi or wheezes noted Abdomen: Soft, nondistended, nontender to palpation, bowel sounds present x 4 Extremities: +5/5 strength noted in the bilateral upper and lower extremities, no pedal edema no exam, radial pulses +2/4 in the bilateral upper extremities Neurological: Patient following commands knew that she was at [facility] years 2023 Skin: Warm, dry, intact Const Vital Signs: 02/16/24 07:56 02/16/24 08:03 02/16/24 08:10 Temperature 97.9 F Temperature Source Temporal Pulse Rate 71 Respiratory Rate 18 Respiratory Effort Normal Respiratory Depth Normal Respiratory Pattern Normal Blood Pressure 150/83 H Blood Pressure Mean 105 Pulse Ox 99 98 Oxygen Delivery Method Room Air Room Air Room Air 02/16/24 08:37 02/16/24 09:56 02/16/24 10:07 Temperature 97.8 F Temperature Source Pulse Rate 90 64 75 Respiratory Rate 22 H 16 16 Respiratory Effort Respiratory Depth Respiratory Pattern Tachypnea Blood Pressure 112/75 112/75 Blood Pressure Mean 87 87 Pulse Ox 95 98 Oxygen Delivery Method Room Air MDM MDM MDM Narrative Medical decision making narrative: Patient is a 63-year-old female who presents to the emergency department the chief complaint of cough and shortness of breath. Patient will have a workup performed here on the differential diagnose clues Melamin to upper respiratory factor second viral etiology, pneumonia, ACS, CHF. Once workup is obtained reviewed she will be reevaluated. Patient be given 3 DuoNebs and oral prednisone. Patient CBC reviewed and showed no evidence leukocytosis white blood count normal 9.2, hemoglobin stable 13.9, platelet count normal at 168. Patient's sodium was noted to be 134, potassium normal at 4.1, creatinine normal at 0.93. Patient's troponin normal at 8, EKG reviewed and independently interpreted by myself showed atrial sensed ventricular paced rhythm 70 bpm no Sgarbossa criteria met. Patient proBNP was normal at 60.9. Patient chest x-ray reviewed by myself and by radiology showed hyperinflation and no other acute cardiopulmonary processes noted. Patient was ambulated here in the emergency department and her oxygen level remained normal no evidence of hypoxia. Patient states that she is feeling much improved she would like to go home at this point time. Patient will be placed on a 5-day course of prednisone this was sent to her pharmacy. At this point in time given her symptoms just started and she is not having change in sputum color we will hold off on antibiotics for now. She is advised to follow-up with her primary care physician at her next upcoming appointment which is in the next week. She is encouraged return with worsening symptoms or other concerns her and her significant other at bedside agreeable to plan all question concerns answered she is discharged home in stable condition. Lab Data Labs: Laboratory Results - last 24 hr 02/16/24 08:29 WBC 9.2 RBC 4.33 Hgb 13.9 Hct 40.8 MCV 94.2 MCH 32.1 H MCHC 34.1 RDW Std Deviation 41.8 RDW Coeff of Pritesh 12.1 Plt Count 168 MPV 11.0 Immature Gran % (Auto) 0.500 Neut % (Auto) 74.3 H Lymph % (Auto) 13.8 L Ross % (Auto) 7.9 Eos % (Auto) 3.0 Baso % (Auto) 0.5 Absolute Neuts (auto) 6.9 Absolute Lymphs (auto) 1.27 Nucleated RBC % 0 Sodium 134 L Potassium 4.1 Chloride 99 Carbon Dioxide 32.0 Anion Gap 4 L BUN 13 Creatinine 0.93 Estim Creat Clear Calc 79.75 Est GFR (MDRD) Af Amer 79 Est GFR (MDRD) Non-Af 65 BUN/Creatinine Ratio 14.0 Glucose 136 H Calcium 10.1 Troponin I High Sens 8 B-Natriuretic Peptide 60.9 Radiography Diagnostic Testing: Clinical Impression(s) from Imaging Studies Chest X-Ray 02/16/24 08:32 IMPRESSION: Hyperinflation. The lungs are clear. Electronically Signed: Lucho Gardiner MD at 8:59 EST , Discharge Plan Triage Chief Complaint: Shortness of Breath ED Provider: Alfonzo Rahman Dx/Rx/DC Orders Clinical Impression: Upper respiratory infection, viral, COPD (chronic obstructive pulmonary disease), Cough Prescriptions: New prednisone 50 mg tablet 50 mg PO DAILY 5 Days Qty: 5 0RF No Action magnesium oxide 400 mg (241.3 mg magnesium) tablet 400 mg PO TID Patient Comments: CYP cholecalciferol (vitamin D3) 50 mcg (2,000 unit) capsule 50 mcg PO DAILY (DME) nebulizer accessories Misc See Rx Instructions .ROUTE .MEDSUPPLY Qty: 1 3RF Rx Instructions: As directed potassium chloride 20 mEq tablet,ER particles/crystals 20 meq PO BID Qty: 180 3RF simvastatin 20 mg tablet 20 mg PO QHS Qty: 90 3RF estradiol 0.5 mg tablet 0.5 mg PO DAILY Qty: 90 3RF furosemide 40 mg tablet 40 mg PO DAILY Qty: 90 4RF losartan 25 mg tablet 25 mg PO DAILY Qty: 90 4RF omeprazole 20 mg capsule,delayed release(DR/EC) 20 mg PO QDAY Qty: 90 2RF lorazepam 2 mg tablet 1 mg PO DAILY 30 Days Qty: 15 0RF albuterol sulfate 2.5 mg /3 mL (0.083 %) solution for nebulization 2.5 mg inhalation Q4H PRN (Reason: shortness of breath or wheezing) Qty: 90 1RF carvedilol 12.5 mg tablet 12.5 mg PO BID Qty: 180 3RF Rx Instructions: must administer with a meal/food Primary Care Provider: Yosi Evans Referrals: Yosi Evans MD [Primary Care Provider] - Activity Restrictions/Additional Instructions: Take steroids as prescribed. Follow-up with your primary care physician outpatient setting. Use your inhalers as prescribed. Return with worsening symptoms or other concerns. Print Language: Kinyarwanda Disposition Disposition: Home, Self Care
--- NOTE | 2024-02-16 08:32 | RAD_ITS ---
STUDY: X-RAY CHEST REASON FOR EXAM: Female, 63 years old. Shortness of breath. Productive cough. TECHNIQUE: PA and lateral views of the chest. COMPARISON: Comparison is made with prior study dated January 21, 2022. FINDINGS: There is hyperinflation of the lungs consistent with chronic obstructive lung disease (COPD). There is no demonstrated pleural abnormality. Normal size heart. A left-sided dual-chamber pacemaker is seen. Normal mediastinum and lele. Normal visualized pulmonary arteries. Normal visualized aortic arch and descending thoracic aorta. Normal visualized thoracic spine. Normal visualized ribs, clavicles, and shoulders. There is no demonstrated abnormality of the visualized soft tissue structures of the upper abdomen. RAD/Chest PA and Lateral IMPRESSION: Hyperinflation. The lungs are clear. Electronically Signed: Lucho Gardiner MD at 8:59 EST ,
[2024-02-16 08:35] LABS: Absolute Lymphocyte Count 1.27 X10^3/uL (0.83-4.51); Absolute Neutrophil Count 6.9 X10^3/uL (2.0-7.7); Basophil# 0.05 X10^3/uL; Basophil% 0.5 % (0-1); Eosinophil# 0.28 X10^3/uL; Hematocrit 40.8 % (37-47); Hemoglobin 13.9 g/dL (12.0-15.0); Lymphocyte # 1.27 X10^3/ul (0.83-4.51); Lymphocyte % 13.8 % (19-41); Mean Corp Hgb Conc 34.1 g/dL (32-36); Mean Corpuscular Hgb 32.1 pg (27.0-32.0); Mean Corpuscular Volume 94.2 fL (81-99); Monocyte# 0.73 X10^3/uL; Monocyte% 7.9 % (0-10); NRBC Flagged by Analyzer 0 % (0-5); Neutrophil # 6.85 X10^3/uL (2.7-7.7); Neutrophil % 74.3 % (47-70); Platelet Count 168 K/mm3 (150-450); RBC Distribution Width CV 12.1 % (11.6-14.6); RBC Distribution Width SD 41.8 fl (35.1-43.9); Red Blood Count 4.33 M/mm3 (4.2-5.4); White Blood Count 9.2 K/mm3 (4.4-11.0)
--- NOTE | 2024-02-16 08:37 | CPS ---
nurse on computer and scanned med
[2024-02-16 08:53] LABS: BNP,B-Type NATRIURETIC PEPTIDE 60.9 pg/mL (0-100)
[2024-02-16 09:11] LABS: Anion Gap 4 (5-15); BUN 13 mg/dL (7-18); Calcium,Total 10.1 mg/dL (8.5-10.1); Chloride 99 mmol/L (98-107); Creatinine, Serum 0.93 mg/dL (0.55-1.02); EST Glomerular Filtration Rate 65 mL/min (>60); Est Glom Filt Rate - Afr Amer 79 mL/min (>60); Estimated Creatinine Clearance 79.75 ml/min; Glucose 136 mg/dL (74-106); Potassium 4.1 mmol/L (3.5-5.1); Sodium Level 134 mmol/L (136-145); Troponin-I HS 8 pg/mL (3.0-54.0)
== END 2024-02-16 10:58 | disposition home or self-care (01) ==
PROVIDERS: Emergency Provider Emergency Medicine; PCP Internal Medicine; Visit Provider Emergency Medicine
DX: J06.9 Acute upper respiratory infection, unspecified (principal); I11.0 Hypertensive heart disease with heart failure; I50.22 Chronic systolic (congestive) heart failure; J44.9 Chronic obstructive pulmonary disease, unspecified; E11.9 Type 2 diabetes mellitus without complications; E78.5 Hyperlipidemia, unspecified; F17.200 Nicotine dependence, unspecified, uncomplicated; Z95.810 Presence of automatic (implantable) cardiac defibrillator; Z79.899 Other long term (current) drug therapy
CPT/HCPCS: 71046; 80048; 83880; 84484; 85025; 93005; 94640; 99284

== ENCOUNTER → 2024-02-24 | Outpatient (CLI) | payer MEDICARE, SELFPAY ==
[2024-02-24 12:20] LABS: Magnesium 1.6 mg/dL (1.6-2.6)
[2024-02-24 12:36] LABS: AST(SGOT) 32 U/L (15-37); Alanine Aminotransfer ALT/SGPT 36 U/L (13-56); Albumin, Serum 4.2 g/dL (3.2-5.0); Alkaline Phosphatase 76 U/L (45-117); Cholesterol 136 mg/dL (200); Globulin 3.7 g/dL (2.2-4.2); High Density Lipoprotein 69 mg/dL; Protein, Total 7.9 g/dL (6.4-8.2); Triglycerides 99 mg/dL; Very Low Density Lipoprotein 20 mg/dL (5-40)
== END | disposition home or self-care (01) ==
LOC: BIMLAB 09:40
PROVIDERS: Physician Assistant Medical; PCP Internal Medicine; Referring Provider Internal Medicine; Visit Provider Internal Medicine
DX: E78.00 Pure hypercholesterolemia, unspecified (principal); E83.42 Hypomagnesemia
CPT/HCPCS: 36415; 80061; 80076; 83735

== ENCOUNTER → 2024-05-23 | Outpatient (CLI) | payer MEDICARE, SELFPAY ==
[2024-05-23 12:50] LABS: Absolute Lymphocyte Count 1.38 X10^3/uL (0.83-4.51); Absolute Neutrophil Count 5.4 X10^3/uL (2.0-7.7); Basophil# 0.05 X10^3/uL; Basophil% 0.6 % (0-1); Eosinophil# 0.35 X10^3/uL; Eosinophils% 4.5 % (0-5); Hematocrit 38.8 % (37-47); Lymphocyte # 1.38 X10^3/ul (0.83-4.51); Lymphocyte % 17.6 % (19-41); Mean Corp Hgb Conc 33.5 g/dL (32-36); Mean Corpuscular Hgb 31.7 pg (27.0-32.0); Mean Corpuscular Volume 94.6 fL (81-99); Mean Platelet Vol. 11.4 fl (6.2-12.0); Monocyte# 0.62 X10^3/uL; Monocyte% 7.9 % (0-10); NRBC Flagged by Analyzer 0 % (0-5); Neutrophil # 5.41 X10^3/uL (2.7-7.7); Platelet Count 175 K/mm3 (150-450); RBC Distribution Width CV 12.1 % (11.6-14.6); RBC Distribution Width SD 42.4 fl (35.1-43.9); White Blood Count 7.8 K/mm3 (4.4-11.0)
[2024-05-23 14:10] LABS: ALB/GLOB Ratio 1.4 RATIO (0.9-2.4); AST(SGOT) 39 U/L (<=31); Alanine Aminotransfer ALT/SGPT 25 U/L (<=34); Albumin, Serum 4.6 g/dL (3.4-4.8); Alkaline Phosphatase 123 U/L (35-104); Anion Gap 10 (5-15); BUN 23 mg/dL (4-19); BUN/Creat Ratio 23.7 RATIO (10-20); Calcium,Total 8.9 mg/dL (7.6-11.0); Carbon Dioxide 30.1 mmol/L (21.0-32.0); Chloride 97 mmol/L (98-108); Creatinine, Serum 0.98 mg/dL (0.70-1.20); EST Glomerular Filtration Rate 65 (>60); Globulin 3.3 g/dL (2.2-4.2); Glucose 119 mg/dL (70-99); Protein, Total 7.9 g/dL (5.9-8.4); Sodium Level 138 mmol/L (133-145); Total Bilirubin 1.17 mg/dL (0.00-1.30)
== END | disposition home or self-care (01) ==
LOC: BIMLAB 09:06
PROVIDERS: PCP Internal Medicine; Referring Provider Internal Medicine; Visit Provider Internal Medicine
DX: E11.9 Type 2 diabetes mellitus without complications (principal); E78.5 Hyperlipidemia, unspecified
CPT/HCPCS: 36415; 80053; 85025

== ENCOUNTER → 2024-06-08 | Outpatient (CLI) | payer MEDICARE, SELFPAY ==
--- NOTE | 2024-06-08 09:11 | ECHOL_ITS ---
Reason For Study Reason For Study: CHF, EVAL EF Procedure This was a limited 2D transthoracic echocardiogram. Exam performed in department. Left Ventricle Normal LV size. The left ventricular ejection fraction is 45 %. There is moderate global hypokinesis of the left ventricle. Right Ventricle Normal RV size. ICD or pacer leads identified within the right ventricle. Normal systolic function. Atria Normal left atrium. Normal right atrium. Tricuspid Valve Normal tricuspid valve. Mild tricuspid valve insufficiency. Pulmonary artery systolic pressure is 40 mmHg. Great Vessels Normal aortic root. Pericardium/Pleural Small (<1.0 cm) pericardial effusion. Epicardial fat. MMode/2D Measurements & Calculations LVIDd: 4.0 cm IVSd: 0.98 cm Ao root diam: 2.9 cm LVIDs: 3.2 cm LVPWd: 0.95 cm RVDd: 3.0 cm FS: 20.2 % SV(MOD-sp4): 27.0 ml LVAd ap4: 23.0 cm2 LVAd ap2: 20.2 cm2 LVLd ap4: 7.1 cm LVLd ap2: 6.5 cm SI(MOD-sp4): 18.2 ml/m2 EDV(MOD-sp4): 60.8 ml EDV(MOD-sp2): 54.0 ml EDV(sp4-el): 62.8 ml EDV(sp2-el): 53.7 ml LVAs ap4: 15.5 cm2 LVAs ap2: 14.0 cm2 LVLs ap4: 6.0 cm LVLs ap2: 5.8 cm ESV(MOD-sp4): 33.8 ml ESV(MOD-sp2): 28.5 ml ESV(sp4-el): 33.8 ml ESV(sp2-el): 28.4 ml EF(MOD-sp4): 44.4 % EF(MOD-sp2): 47.2 % EF(sp4-el): 46.2 % SV(MOD-sp2): 25.5 ml SV(sp4-el): 29.0 ml LA dimension(2D): 2.5 cm SI(MOD-sp2): 17.1 ml/m2 TAPSE: 1.8 cm Doppler Measurements & Calculations TV V2 max: 149.2 cm/sec TR max arnaldo: 300.4 cm/sec TV max P.9 mmHg TR max P.1 mmHg TV V2 mean: 111.0 cm/sec TV mean P.3 mmHg ECHO/Echo, Limited Study Interpretation Summary Normal LV size. The left ventricular ejection fraction is 45 %. There is moderate global hypokinesis of the left ventricle. Pulmonary artery systolic pressure is 40 mmHg. Compared to previous study, the left ventricular systolic function has improved .. Ordering Physician: Stewart Diane Referring Physician: SEJAL SALAZAR Performed By: Danica Randle RDCS
== END | disposition home or self-care (01) ==
LOC: CVS 09:10
PROVIDERS: PCP Internal Medicine; Referring Provider Internal Medicine Cardiovascular Disease; Visit Provider Internal Medicine Cardiovascular Disease
DX: I50.22 Chronic systolic (congestive) heart failure (principal); I42.8 Other cardiomyopathies; Z95.810 Presence of automatic (implantable) cardiac defibrillator
CPT/HCPCS: 93308

== ENCOUNTER → 2024-08-24 | Outpatient (CLI) | payer MEDICARE, SELFPAY ==
[2024-08-24 13:01] LABS: AST(SGOT) 39 U/L (<=31); Alanine Aminotransfer ALT/SGPT 24 U/L (<=34); Albumin, Serum 4.8 g/dL (3.4-4.8); Alkaline Phosphatase 94 U/L (35-104); Bilirubin, Direct 0.53 mg/dL (0.00-0.30); Cholesterol 150 mg/dL (<=200); Globulin 3.5 g/dL (2.2-4.2); High Density Lipoprotein 68 mg/dL; Low Density Lipoprotein Calc. 63 mg/dL; Protein, Total 8.3 g/dL (5.9-8.4); Total Bilirubin 1.29 mg/dL (0.00-1.30); Triglycerides 98 mg/dL; Very Low Density Lipoprotein 20 mg/dL (5-40); cholesterol:hdl ratio screen 2.22
--- OUTSIDE RECORDS SUMMARY | 2024-08-24 20:02 | XMS RPT_ITS | CCD ---
Author Organization [facility] Care Team Providers Care Access Services Assistant Name Role Phone Dr. Martin Evans Primary Care Provider [phone] Dr. Martin Evans Attending Provider [phone] Dr. Martin Evans Referring Provider [phone] Aliyah Aguilar Attending Provider MARTIN Donato MD Primary Care Physician [phone] Dr. Martin Evans Primary Care Provider [phone] Dr. Martin Evans Attending Provider [phone] Dr. Martin Evans Referring Provider [phone] Dr. Stewart Diane Attending Provider Aliyah Aguilar Attending Provider Gagan ALVARADO MD, CHAR Attending MARTIN Donato MD Primary Care Unavailab Dilshad LEDESMA, CHAR Attending MARTIN Donato MD Primary Care Unavailab Dilshad LEDESMA, CHAR Attending Unavailable MARTIN EVANS MD Primary Care Unavailab Dilshad LEDESMA, CHAR Attending Gagan MESA MD., DR. SANDRA Walker Consulting MARTIN Noel MD Primary Care UnavailCHAR Martin MD Consulting JASPREET See MD Consulting Dr. Martin Donato Primary Care Provider [phone] Dr. Martin Evans Attending Provider [phone] Dr. Martin Evans Referring Provider [phone] Dr. Martin Evans Primary Care Provider [phone]) Dr. Martin Evans Attending Provider [phone] Dr. Martin Evans Referring Provider [phone] Dr. Stewart Diane Attending Provider Sam SUPERVISOR FINISHING ROOM, SUPERVISOR FINISHING ROOM-C Emma Attending Provider Dr. Joanie Tran Attending Provider [phone] Dr. Martin Evans Primary Care Provider [phone] Dr. Martin Evans Attending Provider [phone] Dr. Martin Evans Referring Provider [phone] Dr. Stewart Diane Attending Provider [phone] Sam CHRISTIANSON, SUPERVISOR FINISHING ROOM-C Emma Attending Provider Dr. Joanie Tran Attending Provider [phone] Aliyah Aguilar Attending Provider Unavailable Martin Evans MD Primary Care Provider [phone]) Stewart Diane MD Unavailable DIXON HENNESSY Attending Unavailable CHANDNI EVANSBE B Primary Care Unavailable STEWART DIANE Referring Unavailable MARTIN EVANS B Primary Care Unavailable JERRI TALBOT Attending Unavailable JOSE AKINS Admitting Unavailable CONSULT, CARDIOLOGY - EP Consulting Unavail able DIXON HENNESSY Referring Unavailable Dr. Martin Evans MD Primary Care Provider Dr. Alfonzo Rahman DO Attending Provider Dr. Alfonzo Rahman DO Emergency Provider Dr. Stewart Diane MD Other Provider [phone] Martin Evans MD Attending Provider [phone] Dr. Martin Evans MD Referring Provider [phone] Dr. Stewart Diane MD Attending Provider [phone] Dr. Stewart Diane MD Referring Provider [phone] Cristina LEDESMA, Dr. Salazar Primary Care Provider Cristina LEDESMA, Dr. Salazar Referring Provider [phone] Benedicto LEDESMA, Dr. William Attending Provider [phone] Cristina LEDESMA, Dr. Salazar Attending Provider [phone] Aliyah Aguilar Attending Provider Unavailable Benedicto, Whitman Referring Unavailable Benedicto, Whitman Attending Unavailable Oleghe, Efewongbe Primary Care Unavailable Sam SUPERVISOR FINISHING ROOM, Emma Attending Unavailable Sam CHRISTIANSON, Emma Referring Unavailable Oleghe, Efewongbe Primary Care Unavailable Benedicto, Whitman Attending Unavailable Oleghe, Efewongbe Primary Care Unavailable Oleghe, Efewongbe Attending Unavailable Oleghe, Efewongbe Referring Unavailable Oleghe, Efewongbe Primary Care Unavailable Oleghe, Efewongbe Attending Unavailable Oleghe, Efewongbe Referring Unavailable Oleghe, Efewongbe Primary Care Unavailable Oleghe, Efewongbe Referring Unavailable Oleghe, Efewongbe Attending Unavailable Oleghe, Efewongbe Primary Care Unavailable Oleghe, Efewongbe Primary Care Unavailable Benedicto, Stewart Referring Unavailable Benedicto, Stewart Attending Unavailable Oleghe, Efewongbe Primary Care Unavailable Alfonzo Rahman Attending Unavailable Benedicto, Whitman Consulting Unavailable Oleghe, Efewongbe Referring Unavailable Benedicto, Whitman Attending Unavailable Oleghe, Efewongbe Primary Care Unavailable Oleghe, Efewongbe Primary Care Unavailable Benedicto, Whitman Attending Unavailable Benedicto, Whitman Attending Unavailable Oleghe, Efewongbe Primary Care Unavailable Oleghe, Efewongbe Attending Unavailable Oleghe, Efewongbe Referring Unavailable Oleghe, Efewongbe Primary Care Unavailable Oleghe, Efewongbe Primary Care Unavailable Oleghe, Efewongbe Referring Unavailable Benedicto, Stewart Attending Unavailable Oleghe, Efewongbe Primary Care Unavailable Rudolph Gooden NP Attending Unavailable Oleghe, Efewongbe Referring Unavailable Oleghe, Efewongbe Primary Care Unavailable Benedicto, Stewart Attending Unavailable Oleghe, Efewongbe Attending Unavailable Oleghe, Efewongbe Referring Unavailable Oleghe, Efewongbe Primary Care Unavailable Benedicto, Stewart Attending Unavailable Oleghe, Efewongbe Primary Care Unavailable Benedicto, Stewart Attending Unavailable Benedicto, Whitman Referring Unavailable Oleghe, Efewongbe Primary Care Unavailable Oleghe, Efewongbe Referring Unavailable Benedicto, Whitman Attending Unavailable Oleghe, Efewongbe Primary Care Unavailable Roof SUPERVISOR FINISHING ROOM, Rudolph H Consulting Unavailable Roof SUPERVISOR FINISHING ROOM, Rudolph H Referring Unavailable Oleghe, Efewongbe Primary Care Unavailable Benedicto, Stewart Attending Unavailable Oleghe, Efewongbe Primary Care Unavailable Benedicto, Stewart Attending Unavailable Sam CHRISTIANSON, Emma Attending Unavailable Oleghe, Efewongbe Primary Care Unavailable Sam CHRISTIANSON, Emma Attending Unavailable Oleghe, Efewongbe Referring Unavailable Oleghe, Efewongbe Primary Care Unavailable Oleghe, Efewongbe Attending Unavailable Oleghe, Efewongbe Referring Unavailable Oleghe, Efewongbe Primary Care Unavailable Aliyah Aguilar Attending Unavailable Oleghe, Efewongbe Referring Unavailable Oleghe, Efewongbe Primary Care Unavailable Oleghe, Efewongbe Attending Unavailable Oleghe, Efewongbe Referring Unavailable Oleghe, Efewongbe Primary Care Unavailable Oleghe, Efewongbe Referring Unavailable Benedicto, Whitman Attending Unavailable Oleghe, Efewongbe Primary Care Unavailable Benedicto, Stewart Attending Unavailable Oleghe, Efewongbe Primary Care Unavailable Benedicto, Whitman Attending Unavailable Oleghe, Efewongbe Referring Unavailable Oleghe, Efewongbe Primary Care Unavailable Benedicto, Stewart Attending Unavailable Oleghe, Efewongbe Primary Care Unavailable Oleghe, Efewongbe Referring Unavailable Oleghe, Efewongbe Attending Unavailable Oleghe, Efewongbe Primary Care Unavailable Roof SUPERVISOR FINISHING ROOM, Rudolph H Attending Unavailable Roof SUPERVISOR FINISHING ROOM, Rudolph H Referring Unavailable Oleghe, Efewongbe Primary Care Unavailable Cristina LEDESMA, Dr. Salazar Primary Care Provider Dr. Martin Evans MD Referring Provider Benedicto LEDESMA, Dr. William Attending Provider Allergies Allergy Classification Reported Allergen(s) Allergy Type Date of Onset Reaction(s) Facility (14 sources) Acetaminophen; Translations: [acetaminophen] Drug Allergy 07-06-19 Weal (disorder) [facility] (16 sources) Amoxicillin; Translations: [amoxicillin] Drug Allergy 07-06-19 Weal (disorder), Nausea Only [facility] (14 sources) Amoxicillin; Translations: [amoxicillin trihydrate] Drug Allergy 07-06-19 [facility] (14 sources) celecoxib; Translations: [celecoxib] Drug Allergy 07-06-19 Vomiting (disorder), Nausea (finding), Diarrhea (finding) [facility] (14 sources) Cholecalciferol; Translations: [cholecalciferol] Drug Allergy 07-06-19 Eruption of skin (disorder) [facility] (14 sources) Ciprofloxacin; Translations: [ciprofloxacin] Drug Allergy 07-06-19 Itching (finding) [facility] (15 sources) Citalopram; Translations: [Citalopram] Drug Allergy 07-06-19 Unknown (qualifier value) [facility] (16 sources) Codeine; Translations: [codeine] Drug Allergy 02-03-20 06 Weal (disorder), [facility] (14 sources) cyclobenzaprine; Translations: [cyclobenzaprine HCl] Drug Allergy 07-06-19 Nausea [facility] (14 sources) diazePAM; Translations: [diazepam] Drug Allergy 07-06-19 Weal (disorder) [facility] (16 sources) Doxycycline; Translations: [doxycycline] Drug Allergy 10-29-19 05 Unknown (qualifier value) [facility] (15 sources) HYDROcodone; Translations: [Hydrocodone] Drug Allergy 07-06-19 Nausea (finding) [facility] (14 sources) Lisinopril; Translations: [lisinopril] Drug Allergy 07-06-19 Cough (finding) [facility] (14 sources) meloxicam; Translations: [meloxicam] Drug Allergy 07-06-19 Unknown (qualifier value) [facility] (14 sources) Methocarbamol; Translations: [methocarbamol] Drug Allergy 07-06-19 22 Eruption of skin (disorder) [facility] (14 sources) nabumetone; Translations: [nabumetone] Drug Allergy 07-06-19 22 Eruption of skin (disorder) [facility] (16 sources) Naproxen; Translations: [naproxen] Drug Allergy 10-29-19 05 Nausea (finding), Dyspepsia [facility] (14 sources) Omeprazole; Translations: [omeprazole] Drug Allergy 07-06-19 22 Nausea (finding) [facility] (16 sources) Penicillins; Translations: [Penicillins] Allergy to substance 10-29-19 05 Hives, Itching [facility] (14 sources) Pramipexole; Translations: [pramipexole] Drug Allergy 07-06-19 22 Unknown (qualifier value) [facility] (14 sources) raNITIdine; Translations: [ranitidine HCl] Drug Allergy 07-06-19 22 [facility] (16 sources) rOPINIRole; Translations: [ropinirole] Drug Allergy 05-12-19 13 Eruption of skin (disorder), Rash [facility] (3 sources) cyclobenzaprine; Translations: [cyclobenzaprine] Drug Allergy 11-30-19 11 Nausea (finding), Dyspepsia [facility] (3 sources) raNITIdine; Translations: [ranitidine] Drug Allergy 03-10-19 14 Weal (disorder), Hives [facility] (2 sources) Acetaminophen / HYDROcodone Drug Allergy 10-29-19 05 [facility] (2 sources) celecoxib Drug Allergy 10-29-19 05 [facility] (6 sources) Chlorhexidine Drug Allergy 03-07-20 24 Rash [facility] (2 sources) Ciprofloxacin Drug Allergy 11-30-19 11 Itching [facility] (2 sources) Citalopram Drug Allergy 11-02-19 08 [facility] (2 sources) Diazepam Propensity to adverse reactions to drug 10-29-19 05 Hives [facility] (2 sources) Lisinopril Propensity to adverse reactions to drug 03-07-20 24 Cough [facility] (2 sources) meloxicam Drug Allergy 11-30-19 11 [facility] (2 sources) Menthol / pectin Drug Allergy 10-29-19 05 [facility] (2 sources) Methocarbamol Drug Allergy 08-11-19 13 Rash [facility] (2 sources) nabumetone Drug Allergy 03-07-20 24 Rash [facility] (2 sources) Pramipexole Drug Allergy 06-12-19 13 [facility] (2 sources) Sulfamethoxazole Propensity to adverse reactions to drug 08-18-19 11 Itching [facility] (2 sources) Hydrocodone-Guaifen esin Propensity to adverse reactions to drug 10-29-19 05 [facility] (1 source) Acetaminophen Drug Allergy 05-24-19 [facility] (1 source) Amoxicillin Drug Allergy 05-24-19 [facility] (1 source) celecoxib Drug Allergy 05-24-19 [facility] (1 source) Chlorhexidine Drug Allergy 05-24-19 [facility] (1 source) Cholecalciferol Drug Allergy 05-24-19 [facility] (1 source) Ciprofloxacin Drug Allergy 05-24-19 [facility] (1 source) Codeine Drug Allergy 05-24-19 [facility] (1 source) diazePAM Drug Allergy 05-24-19 [facility] (1 source) Doxycycline Drug Allergy 05-24-19 [facility] (1 source) Lisinopril Drug Allergy 05-24-19 [facility] (1 source) meloxicam Drug Allergy 05-24-19 [facility] (1 source) Methocarbamol Drug Allergy 05-24-19 [facility] (1 source) nabumetone Drug Allergy 05-24-19 [facility] (1 source) Naproxen Drug Allergy 05-24-19 [facility] (1 source) Omeprazole Drug Allergy 05-24-19 [facility] (1 source) Pramipexole Drug Allergy 05-24-19 [facility] (1 source) rOPINIRole Drug Allergy 05-24-19 [facility] Medications Current Medications Medication Drug Class(es) Dates Sig (Normalized) Sig (Original) albuterol 0.83 mg/ml inhalation solution (20 sources) beta2-Adrenergic Agonist Start: 07-06-2024 Start: 02-26-2024 take 2.5 mg by inhal ation every four hours as needed Albuterol (2.5 MG/3ML) 0.083% inhalation solution Take 3 mL by nebulization every 4 hours as needed. 02/26/2024 Active Start: 07-07-2022 End: 03-25-2024 Start: 07-07-2022 End: 05-04-2023 take 2.5 mg by inhalation every four hours Albuterol Sulfate Active 2.5 MG INHALATION Q4H May 04, 2023 6:06pm Start: 05-08-2022 End: 07-07-2022 take 2.5 mg by inhalation every four hours Albuterol Sulfate Discontinued 2.5 MG INHALATION Q4H May 08, 2022 1:00am July 07, 2022 10:53am Start: 05-08-2022 End: 07-07-2022 take 2.5 mg by inhalation every four hours Albuterol Sulfate Discontinued 2.5 MG INHALATION Q4H May 08, 2022 12:00am July 07, 2022 9:53am Start: 11-23-2018 End: 10-18-2020 Start: 11-23-2018 End: 10-18-2020 take 1.25 mg by inhalation every six hours Albuterol Sulfate Discontinued 1.25 MG INHALATION EVERY 6 HOURS 540 90 August 13, 2020 12:32pm October 18, 2020 8:48am Start: 04-08-2017 End: 10-29-2018 take 2.5 mg by inhalation every six hours Albuterol Sulfate Discontinued 2.5 MG INHALATION EVERY 6 HOURS 180 April 13, 2018 5:54pm October 29, 2018 9:12am Start: 06-01-2014 End: 10-29-2018 Start: 06-01-2014 End: 04-08-2017 take 2.5 mg by inhalation every four hours as needed Albuterol Sulfate Discontinued 2.5 MG INHALATION EVERY 4 HOURS NEEDED June 01, 2014 12:00am April 08, 2017 4:35pm carvedilol 12.5 mg oral tablet (20 sources) alpha-Adrenergic Kemal, beta-Adrenergic Kemal Start: 02-03-2024 End: 07-18-2024 Start: 02-03-2024 End: 03-11-2024 take 12.5 mg by mouth every twelve hours 12.5 mg, Oral, EVERY 12 HOURS, First dose on Thu03/07/24 at 1800, Until Discontinued Start: 12-09-2023 End: 02-03-2024 LORazepam 1 mg oral tablet (20 sources) Benzodiazepine Start: 08-22-2024 Start: 07-22-2024 End: 08-21-2024 Start: 02-25-2024 End: 07-17-2024 Start: 11-30-2023 End: 02-25-2024 Start: 09-29-2023 End: 11-27-2023 Start: 04-06-2023 End: 09-26-2023 Start: 12-08-2022 End: 04-03-2023 Start: 04-09-2018 End: 03-29-2019 Lorazepam Discontinued 1 MG PO 1 to 2 times per day 60 January 20, 2019 11:37pm March 29, 2019 3:46pm Start: 07-13-2017 End: 12-08-2022 Start: 07-13-2017 End: 04-09-2018 take 1 mg by mouth twice daily Lorazepam Discontinued 1 MG PO TWICE A DAY 60 March 09, 2018 4:05pm April 09, 2018 9:52am Start: 06-12-2017 End: 07-13-2017 Start: 06-10-2017 End: 06-12-2017 take 1 mg by mouth twice daily Lorazepam Discontinued 1 MG PO TWICE A DAY 20 June 10, 2017 6:54pm June 12, 2017 11:54am Start: 06-01-2014 End: 06-12-2017 Start: 06-01-2014 End: 06-10-2017 take 1 mg by mouth three times daily as needed Lorazepam Discontinued 1 MG PO 3 TIMES DAILY NEEDED June 01, 2014 12:00am June 10, 2017 6:55pm Nebulizer Accessories (20 sources) Start: 07-05-2021 Nebulizer Acce ssories Active 0 .ROUTE .MEDSUPPLY 1 Roxanne 29th, 2022 8:34am As directed Start: 07-05-2021 Nebulizer Acce ssories Active 0 .ROUTE .MEDSUPPLY 1 July 05, 2021 9:34am As directed Start: 04-08-2021 End: 07-05-2021 Nebulizer Accessories Discon tinued 0 .ROUTE .MEDSUPPLY 1 April 08, 2021 4:13pm July 05, 2021 9:34am As directed Start: 04-08-2021 End: 07-05-2021 Nebulizer Accessories Discon tinued 0 .ROUTE .MEDSUPPLY 1 April 08, 2021 12:00am July 05, 2021 8:34am As directed Start: 04-08-2021 End: 07-05-2021 Nebulizer Accessories Discon tinued 0 .ROUTE .MEDSUPPLY 1 April 08, 2021 1:00am July 05, 2021 9:34am As directed Start: 11-23-2018 End: 12-24-2018 Nebulizer Accessories Discon tinued 0 .ROUTE .MEDSUPPLY November 23, 2018 1:17pm December 24, 2018 10:58am As directed Start: 11-23-2018 End: 12-24-2018 Nebulizer Accessories Discon tinued 0 .ROUTE .MEDSUPPLY November 22, 2018 11:00pm December 24, 2018 9:58am As directed Start: 11-23-2018 End: 12-24-2018 Nebulizer Accessories Discon tinued 0 .ROUTE .MEDSUPPLY November 23, 2018 12:00am December 24, 2018 10:58am As directed Vitamin D3 50 mcg (2000 intl units) oral tablet (1 source) Start: 11-14-2021 Vitamin D3 50 mcg (2000 intl units) oral tablet Dose : 50 mcg = 1 tab(s), Oral, Daily, # 60 tab(s), 0 Refill(s) Start Date: 11/14/21 Status: Ordered (20 sources) Start: 04-18-2024 Start: 03-25-2024 End: 07-06-2024 Start: 03-25-2024 Start: 05-08-2022 End: 07-07-2022 Start: 07-05-2021 Start: 04-08-2021 End: 07-05-2021 Start: 11-23-2018 End: 12-24-2018 Completed/Discontinued Medications Medication Drug Class(es) Dates Sig (Normalized) Sig (Original) acetaminophen 325 mg oral tablet (2 sources) Start: 03-10-2024 End: 03-11-2024 take 1 tablet by mouth every six hours as needed 975 mg, Oral, EVERY 6 HOURS NEEDED, Starting on Thu03/10/24 at 1633, Until Thu03/11/24 at 1601, Mild Pain, Moderate Pain, Headaches, Maximum dose of acetaminophen is 4000 mg from all sources in 24 hours. albuterol 0.833 mg/ml / ipratropium bromide 0.167 mg/ml inhalation solution (20 sources) Anticholinergic, beta2-Adrenergic Agonist Start: 03-07-2024 End: 03-11-2024 take 3 mL by inhalation every four hours as needed 3 mL, Nebulization, EVERY 4 HOURS NEEDED, Starting on Thu03/07/24 at 1552, Until Thu03/11/24 at 1601, Shortness of Breath, Cough, Breathing Treatment, Wheezing, Respiratory Distress Start: 07-14-2019 End: 05-08-2022 Start: 07-14-2019 End: 05-08-2022 take 1 mL by inhalation twice daily Ipratropium-Albuterol Discontinued 3 ML INHALATION TWICE A DAY 180 May 05, 2022 2:31pm May 08, 2022 3:49pm aluminum hydroxide 40 mg/ml / magnesium hydroxide 40 mg/ml / simethicone 4 mg/ml oral suspension (2 sources) Start: 03-07-2024 End: 03-11-2024 take 30 mL by mouth every six hours as needed atorvastatin 10 mg oral tablet (2 sources) HMG-CoA Reductase Inhibitor Start: 03-08-2024 End: 03-11-2024 take 1 tablet by mouth every twenty-four hours 10 mg, Oral, EVERY 24 HOURS, First dose on Thu03/08/24 at 1800, Until Discontinued azithromycin 250 mg oral tablet (20 sources) Macrolide Antimicrobial Start: 11-09-2019 End: 06-29-2020 Start: 11-09-2019 End: 06-29-2020 Azithromycin Discontinued 0 PO .COMPLEX 6 November 23, 2019 12:00am June 29, 2020 10:59am Take two tablets by mouth on day one then one tablet by mouth on days 2-5 Start: 10-13-2018 End: 02-15-2019 Start: 10-13-2018 End: 02-15-2019 Azithromycin Discontinued 0 PO .COMPLEX 6 January 05, 2019 4:52pm February 15, 2019 3:59pm Take two tablets by mouth on day one then one tablet by mouth on days 2-5 Start: 11-24-2017 End: 06-11-2018 Start: 11-24-2017 End: 06-11-2018 Azithromycin Discontinued 0 PO .COMPLEX 6 May 05, 2018 5:29pm June 11, 2018 2:08pm take 500 mg today (day 1), then 250 mg for 4 days (days 2-5) PO Start: 07-06-2017 End: 07-06-2017 Aztreonam (AZACTAM) 2 g in sterile water (PF) 10 mL syringe (2 sources) Start: 03-10-2024 End: 03-10-2024 2 g, Intravenous, Administer over 3 Minutes, 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 TEACHER TO PROCEDURE, 1 dose, Starting on Thu03/10/24 at 0626, Until Thu03/10/24 at 0949, Other calcium carbonate 1500 mg or al tablet (20 sources) Start: 04-06-2017 End: 12-08-2023 Start: 04-06-2017 End: 02-11-2023 take 600 mg by mouth twice daily Calcium Carbonate Discontinued 600 MG PO TWICE A DAY 180 July 21, 2022 1:59pm February 11, 2023 11:26am cetirizine hydrochloride 10 mg oral tablet (13 sources) Histamine-1 Receptor Antagonist Start: 09-21-2019 End: 10-18-2020 cholecalciferol 0.05 mg oral tablet (20 sources) Vitamin D Start: 03-08-2024 End: 03-11-2024 take 1 tablet by mouth every twenty-four hours 2,000 Units, Oral, EVERY 24 HOURS, First dose (after last modification) on Thu03/08/24 at 0600, Until Discontinued Start: 01-15-2021 Start: 09-18-2017 End: 12-24-2018 Start: 09-18-2017 End: 03-18-2018 take 41715 [IU] by mouth every week Cholecalciferol (Vitamin D3) Discontinued 97502 UNIT PO EVERY WEEK 4 February 15, 2018 1:38pm March 18, 2018 4:12pm take 1 tablet by wiliam th once daily cholecalciferol 50 MCG (2000 UNIT) tablet Take 1 tablet by mouth daily. Active doxycycline monohydrate 100 mg oral capsule (20 sources) Tetracycline-class Drug Start: 11-23-2019 End: 06-29-2020 Start: 01-05-2019 End: 02-15-2019 0.3 ml enoxaparin sodium 100 mg/ml prefilled syringe (2 sources) Low Molecular Weight Heparin Start: 03-08-2024 End: 03-11-2024 inject 30 mg by subcutaneous injection every twenty-four hours 30 mg, Subcutaneous, EVERY 24 HOURS, First dose on Thu03/08/24 at 0600, Until Discontinued, For SUBCUTANEOUS route ONLY: alternate injection sites between left and right abdominal wall, pinching location and avoiding area around navel. If unable to use abdominal sites, may use the front or side of thighs., Indications: DVT/PE prophylaxis, On hold since Thu03/09/2024 at 1430 until manually unheld ergocalciferol 0.05 mg oral tablet (13 sources) Provitamin D2 Compound Start: 12-24-2018 End: 01-15-2021 estradiol 0.5 mg oral tablet (20 sources) Estrogen Start: 06-01-2014 End: 07-18-2024 Start: 06-01-2014 End: 04-28-2024 take 1 tablet by mouth every twenty-four hours 0.5 mg, Oral, EVERY 24 HOURS, First dose (after last modification) on Thu03/08/24 at 0600, Until Discontinued, Swallow tablet whole; do not crush, split or chew. Contact pharmacy if alternate route or dose is needed. fluticasone propionate 0.05 mg/actuat metered dose nasal spray (13 sources) Corticosteroid Start: 09-20-2019 End: 09-21-2019 Start: 09-20-2019 End: 09-21-2019 take 1 spray(s) nasal route once daily Fluticasone Propionate (Flonase Allergy Relief) 50 mcg/actuation spray,suspension Discontinued 2 SPRAY INTRANASAL DAILY 15.8 September 20, 2019 12:00am September 21, 2019 5:21pm administer into each nostril furosemide 40 mg oral tablet (20 sources) Loop Diuretic Start: 05-21-2018 End: 07-18-2024 Start: 05-21-2018 End: 06-18-2022 take 40 mg by mouth once daily Furosemide Discontinued 40 MG PO DAILY 90 October 10, 2021 1:19pm June 18, 2022 8:35pm Start: 06-01-2014 End: 05-21-2018 hydrocortisone 0.025 mg/mg t opical ointment (13 sources) Corticosteroid Start: 06-11-2018 End: 10-13-2018 Start: 06-11-2018 End: 10-13-2018 Hydrocortisone Discontinued 1 APPLIC TOPICAL TWICE A DAY 28.35 June 11, 2018 12:00am October 13, 2018 10:32am ipratropium bromide 0.2 mg/m l inhalation solution (20 sources) Anticholinergic Start: 11-06-2022 End: 02-04-2023 Start: 11-06-2022 End: 02-04-2023 take 1 mL by inhalation every six hours Ipratropium [place] Discontinued 2.5 ML INHALATION EVERY 6 HOURS 150 November 06, 2022 12:00am February 04, 2023 11:32am Start: 05-08-2022 End: 10-31-2022 Start: 05-08-2022 End: 10-31-2022 take 1 mL by inhalation every six hours Ipratropium [place] Discontinued 2.5 ML INHALATION EVERY 6 HOURS 75 September 05, 2022 1:02pm October 31, 2022 10:49am Start: 11-24-2017 End: 06-11-2018 Start: 11-24-2017 End: 06-11-2018 take 0.5 mg by inhalation every eight hours Ipratropium [place] Discontinued 0.5 MG INHALATION Q8H 62.5 November 24, 2017 12:00am June 11, 2018 2:11pm lidocaine 25 mg/ml / prilocaine 25 mg/ml topical cream (7 sources) Antiarrhythmic, Amide Local Anesthetic Start: 04-14-2023 End: 05-15-2023 Start: 04-14-2023 End: 05-15-2023 Lidocaine-Prilocaine Discont inued 1 APPLIC TOPICAL ONCE 30 April 14, 2023 1:00am May 15, 2023 11:01am apply 45 minutes to area prior to procedure. Apply the cream to a perineal pad and leave it in place until the procedure. lisinopril 20 mg oral tablet (20 sources) Angiotensin Converting Enzyme Inhibitor Start: 06-01-2014 End: 05-24-2018 loratadine 10 mg oral tablet (20 sources) Start: 05-29-2016 End: 10-13-2018 losartan potassium 25 mg ora l tablet (20 sources) Angiotensin 2 Receptor Kemal Start: 05-24-2018 End: 07-18-2024 Start: 05-24-2018 End: 07-18-2024 take 1 tablet by mouth every twenty-four hours Losartan 25 MG tablet Take 1 tablet by mouth every evening. 01/29/2024 Active Start: 05-24-2018 End: 03-18-2019 take 25 mg by mouth twice daily Losartan Discontinued 25 MG PO TWICE A DAY 60 May 24, 2018 12:00am March 18, 2019 1:58pm magnesium chloride 535 mg delayed release oral tablet (13 sources) Start: 03-26-2017 End: 04-02-2017 Magnesium Oxide (20 sources) Start: 03-08-2024 End: 03-11-2024 magnesium oxide (MAG-OX) tab let 800 mg Start: 12-16-2017 End: 04-04-2019 Start: 04-13-2017 End: 07-17-2017 take 400 mg by mouth once daily at mealtime Magnesium Oxide Discontinued 400 MG PO daily 60 June 10, 2017 2:01pm July 17, 2017 1:27pm administer with meals Start: 03-26-2017 End: 03-08-2024 Start: 05-30-2016 End: 03-26-2017 Start: 05-30-2016 End: 01-27-2024 Start: 05-30-2016 End: 01-27-2024 Start: 05-30-2016 End: 07-23-2022 take 400 mg by mouth twice daily Magnesium Oxide Activ e 400 MG PO TWICE A DAY July 23, 2022 9:17am take 1 capsule by mo ut three times daily Magnesium Oxide 400 MG capsule Take 1 capsule by mouth 3 (three) times a day. Active 50 ml magnesium sulfate 80 mg/ml injection (2 sources) Start: 03-07-2024 End: 03-07-2024 4 g, Intravenous, at 12.5 mL/hr, Administer over 4 Hours, ONCE, 1 dose, On Thu03/07/24 at 1815 meclizine hydrochloride 12.5 mg oral tablet (8 sources) Antiemetic Start: 02-04-2023 End: 02-10-2023 melatonin 3 mg oral tablet (2 sources) Start: 03-07-2024 End: 03-11-2024 Methylprednisolone (13 sources) Corticosteroid Start: 12-24-2018 End: 02-15-2019 Start: 12-24-2018 End: 02-15-2019 take 1 tablet by mouth once Methylprednisolone (Medrol (Jeff)) 4 mg tablets,dose pack Discontinued 0 PO per package directions December 24, 2018 12:00am February 15, 2019 3:59pm PO PER PKG DIR metoprolol tartrate 50 mg oral tablet (20 sources) beta-Adrenergic Kemal Start: 06-01-2014 End: 12-09-2023 montelukast 10 mg oral tablet (13 sources) Leukotriene Receptor Antagonist Start: 04-27-2018 End: 10-13-2018 Nicotine (13 sources) Cholinergic Nicotinic Agonist Start: 12-24-2018 End: 02-15-2019 apply 21 mg transdermal route once daily, then apply 14 mg transdermal route once daily, then apply 7 mg transdermal route once daily Nicotine Discontinued 1 PATCH TD daily December 24, 2018 11:29am February 15, 2019 3:59pm Apply 21 mg patch daily 6 weeks, then 14 mg patch daily 2 weeks, then 7 mg patch daily 2 weeks. Start: 12-24-2018 End: 02-15-2019 Start: 12-24-2018 End: 02-15-2019 apply 21 mg transdermal route once daily, then apply 14 mg transdermal route once daily, then apply 7 mg transdermal route once daily Nicotine Discontinued 1 PATCH TD daily December 23, 2018 11:00pm February 15, 2019 2:59pm Apply 21 mg patch daily 6 weeks, then 14 mg patch daily 2 weeks, then 7 mg patch daily 2 weeks. Start: 12-24-2018 End: 02-15-2019 apply 21 mg transdermal route once daily, then apply 14 mg transdermal route once daily, then apply 7 mg transdermal route once daily Nicotine Discontinued 1 PATCH TD daily December 24, 2018 12:00am February 15, 2019 3:59pm Apply 21 mg patch daily 6 weeks, then 14 mg patch daily 2 weeks, then 7 mg patch daily 2 weeks. omeprazole 20 mg delayed rel ease oral capsule (20 sources) Proton Pump Inhibitor Start: 07-16-2017 End: 07-18-2024 Start: 03-26-2017 End: 07-16-2017 Start: 03-26-2017 End: 04-06-2017 take 40 mg by mouth once daily 30 minutes before breakfast Omeprazole Discontinued 40 MG PO daily 60 March 26, 2017 1:00am April 06, 2017 9:11am swallow whole; do not crush, chew, dissolve, or cut/break. Take at least 30 minutes before breakfast. Start: 10-07-2015 End: 03-26-2017 Ondansetron 4mg/2ml (ZOFRAN) injection 4 mg (2 sources) Start: 03-07-2024 End: 03-11-2024 take 4 mg intravenously every six hours as needed Ondansetron 4mg/2ml (ZOFRAN) injection 4 mg oxyCODONE (2 sources) Opioid Agonist Start: 03-10-2024 End: 03-11-2024 take 1 tablet by mouth every four hours as needed oxyCODONE (ROXICODONE) tablet 5 mg pantoprazole 40 mg delayed release oral tablet (2 sources) Proton Pump Inhibitor Start: 03-08-2024 End: 03-11-2024 take 40 mg by mouth every twenty-four hours 40 mg, Oral, EVERY 24 HOURS, First dose (after last modification) on Thu03/08/24 at 0600, Until Discontinued, Swallow whole; do not crush or chew., Indications: Continuation of Home Therapy polyethylene glycol 3350 68408 mg powder for oral solution (2 sources) Osmotic Laxative Start: 03-07-2024 End: 03-11-2024 microencapsulated potassium chloride 20 meq extended release oral tablet (20 sources) Start: 03-08-2024 End: 03-11-2024 Potassium chloride (K-DUR) tablet ER 40-60 mEq Start: 11-14-2021 take 1 tablet by wiliam th twice daily Potassium Chloride (Toq-Rngi-Xlp M20) 20 mEq oral tablet, extended release TAKE 1 TABLET BY MOUTH TWICE DAILY Start Date: 11/14/21 Status: Ordered Start: 05-30-2016 End: 05-31-2024 Start: 05-30-2016 End: 11-06-2017 Start: 05-30-2016 End: 05-11-2024 20 mEq, Oral, 2 TIMES DAILY, First dose on Thu03/07/24 at 1800, Until Discontinued, Swallow tablets whole; do not crush, chew, or suck on tablet. Tablet may also be broken in half and each half swallowed separately. take 1 tablet by wiliam th twice daily Potassium Chloride ER 20 MEQ Tab CR tablet Take 1 tablet by mouth 2 times daily. Active predniSONE 50 mg oral tablet (20 sources) Start: 02-16-2024 End: 02-24-2024 Start: 11-09-2019 End: 11-23-2019 Start: 10-13-2018 End: 10-29-2018 Start: 10-13-2018 End: 10-29-2018 Prednisone Discontinued 0 PO daily October 13, 2018 12:00am October 29, 2018 9:12am 4 tabs for 3 days, then 3 tabs for 3 days, then 2 tabs for 3 days, then 1 tab for 3 days PO QDAY; administer with food or milk Start: 11-24-2017 End: 10-13-2018 simvastatin 20 mg oral table t (20 sources) HMG-CoA Reductase Inhibitor Start: 10-19-2018 End: 07-18-2024 Start: 03-16-2018 End: 10-13-2018 200 ml vancomycin 5 mg/ml injection (2 sources) Glycopeptide Antibacterial Start: 03-08-2024 End: 03-10-2024 1,000 mg, Intravenous, Administer over 1 Hours, 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 Vancomycin is preferred agent for device implants, based on national, community and local ([facility]) MRSA rates. Extravasation Risk, Pre-Procedure(Cath) Problems Active Problems Problem Classification Problem Date Documented Date Episodic/Chronic Anxiety disorders (20 sources) Mixed anxiety and depressive disorder; Translations: [Other specified anxiety disorders] Onset: 12-16-2011 Chronic Cancer of other female genital organs (20 sources) Malignant tumor of vulva; Translations: [Malignant neoplasm of vulva, unspecified] Chronic Chronic obstructive pulmonary disease and bronchiectasis (19 sources) Chronic obstructive lung disease; Translations: [Chronic obstructive pulmonary disease, unspecified] Onset: 01-05-2024 Chronic Complication of device; implant or graft (14 sources) Disorder of cardiac pacemaker electrode; Translations: [Breakdown (mechanical) of cardiac electrode, initial encounter] Onset: 03-07-2024 03-07-2024 Episodic Conditions associated with dizziness or vertigo (12 sources) Vertigo; Translations: [Dizziness and giddiness] 02-04-2023 Episodic Conduction disorders (20 sources) Biventricular automatic implantable cardioverter defibrillator in situ; Translations: [Presence of automatic (implantable) cardiac defibrillator] Onset: 11-07-2010 Chronic Congestive heart failure; nonhypertensive (20 sources) Chronic systolic heart failure; Translations: [Chronic systolic (congestive) heart failure] Onset: 01-05-2024 Chronic Diabetes mellitus without complication (20 sources) Type 2 diabetes mellitus; Translations: [Type 2 diabetes mellitus without complications] Onset: 01-05-2024 Chronic Disorders of lipid metabolism (17 sources) Hyperlipidemia; Translations: [Hyperlipidemia, unspecified] Onset: 03-24-2024 11-13-2021 Chronic Disorders of teeth and jaw (1 source) Edentulous 11-13-2021 Chronic E Codes: Unspecified (8 sources) Finding of activity of daily living; Translations: [Activity, personal bathing and showering] 05-23-2024 Episodic Esophageal disorders (1 source) Gastroesophageal reflux disease 11-13-2021 Chronic Essential hypertension (20 sources) Essential hypertension; Translations: [Essential (primary) hypertension] Onset: 01-05-2024 Chronic Heart valve disorders (13 sources) Tricuspid incompetence, non-rheumatic ; Translations: [Nonrheumatic tricuspid (valve) insufficiency] 04-28-2019 Chronic Malaise and fatigue (8 sources) Asthenia; Translations: [Other malaise] 05-30-2024 Episodic Noninfectious gastroenteritis (14 sources) Chronic diarrhea; Translations: [Noninfective gastroenteritis and colitis, unspecified] Onset: 08-26-2023 10-31-2022 Episodic Other connective tissue disease (13 sources) Foot pain; Translations: [Pain in left foot] 06-29-2020 Episodic Other connective tissue disease (8 sources) Muscle weakness of limb; Translations: [Other symptoms and signs involving the musculoskeletal system] 05-23-2024 Episodic Other female genital disorders (2 sources) Mild vulvar dysplasia; 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] Onset: 12-23-2021 Episodic Other lower respiratory disease (13 sources) Dyspnea; Translations: [Shortness of breath] 04-28-2019 Episodic Other lower respiratory disease (17 sources) Cough; Translations: [Cough] 05-20-2018 Episodic Other nutritional; endocrine; and metabolic disorders (14 sources) Hypomagnesemia; Translations: [Hypomagnesemia] 09-17-2017 Chronic Other nutritional; endocrine; and metabolic disorders (5 sources) Hypomagnesemia; Translations: [Disorders of magnesium metabolism] Onset: 02-24-2024 Chronic Other nutritional; endocrine; and metabolic disorders (5 sources) Hypercalcemia; Translations: [Hypercalcemia] 05-15-2023 Chronic Other nutritional; endocrine; and metabolic disorders (13 sources) Unintentional weight loss; Translations: [Abnormal weight loss] 07-05-2021 Episodic Other nutritional; endocrine; and metabolic disorders (11 sources) Abnormal weight loss; Translations: [Loss of weight] Episodic Other upper respiratory disease (1 source) Seasonal allergy 11-13-2021 Chronic Other upper respiratory infections (13 sources) Sinusitis; Translations: [Chronic sinusitis, unspecified] 05-20-2018 Chronic Other upper respiratory infections (4 sources) Viral upper respiratory tract infection; Translations: [Acute upper respiratory infection, unspecified] 02-24-2024 Episodic Reina-; endo-; and myocarditis; cardiomyopathy (except that caused by tuberculosis or sexually transmitted disease) (20 sources) Dilated cardiomyopathy; Translations: [Dilated cardiomyopathy] Onset: 01-05-2024 Chronic Residual codes; unclassified (13 sources) Family history of stroke; Translations: [Family history of stroke] 05-20-2018 Episodic Residual codes; unclassified (13 sources) FH: Hypertension; Translations: [Family history of ischemic heart disease and other diseases of the circulatory system] 05-20-2018 Episodic Residual codes; unclassified (13 sources) Family history of hyperlipidemia; Translations: [Family history of other disorder of lipoprotein metabolism and other lipidemia] 05-20-2018 Episodic Sexually transmitted infections (not HIV or hepatitis) (1 source) 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 Substance-related disorders (8 sources) Tobacco dependence in remission; Translations: [Nicotine dependence, unspecified, in remission] 05-23-2024 Chronic Unclassified (1 source) 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 Unclassified (4 sources) Activities involving personal bathing and showering Past or Other Problems Problem Classification Problem Date Documented Date Episodic/Chronic Other lower respiratory disease (1 source) Shortness of breath; Translations: [Shortness of breath] Onset: 03-17-2024 Episodic Other screening for suspected conditions (not mental disorders or infectious disease) (1 source) Abnormal electrocardiogram [ECG] [EKG]; Translations: [Abnormal electrocardiogram [ECG] [EKG]] Onset: 01-05-2024 Episodic Residual codes; unclassified (2 sources) Acquired absence of other genital organ(s); Translations: [Acquired absence of organ, genital organs] Onset: 03-09-2021 04-20-2023 Episodic Results Test Name Value Interpretation Reference Range Facility Pacemaker Checkon 07-20-2024 Pacemaker Check [facility] [address] [place], [place] [address]. [address] [place] [address] Pacemaker Check Date of Service: 07/20/24 1319 MR#: [id number] Acct: [id number] Name: TANVI GARZA Jaiden Rep #: [id number] : 1960 From: Aliyah Aguilar Age/Sex: 63/F [place] [facility] Status: Signed Billing Codes ICD Device Billin ICD Dev Prog Eval, Multi Assessment and Plan Assessment and Plan (1) ICD (implantable cardioverter-defibril lator) battery depletion: Status: Resolved Comment: CONTRACT PARALEGAL-D change out [facility] 03/10/24 (2) Nonischemic cardiomyopathy: Status: Chronic (3) Presence of biventricular implantable cardioverter-defibril lator (ICD): Status: Chronic Comment: 09/19/2008, Gen change 03/10/24 with new LBB lead placed mid RV septum for LV pacing (4) Chronic systolic (congestive) heart failure: Status: Chronic 07/20/24 1320 Date Aliyah Jose Signature: Date (if applicable) CC: Normal [facility] Echo, Limited Studyon 2024 Echo, Limited Study [facility] [address] [place] [address] Echo, Limited Study 06/08/24 0943 MR#: [id number] Acct: [id number] Name: TANVI GARZA Rep #: [id number] : 1960 63 From: Stewart Diane MD Attending Dr: Dr. Stewart Diane MD Status: [facility] Ordering Dr: Stewart Diane MD Date: 06/08/24 Location: [facility] Sex: F C Admitted: Reason For Study Reason For Study: CHF, EVAL EF Procedure This was a limited 2D transthoracic echocardiogram. Exam performed in department. Left Ventricle Normal LV size. The left ventricular ejection fraction is 45 %. There is moderate global hypokinesis of the left ventricle. Right Ventricle Normal RV size. ICD or pacer leads identified within the right ventricle. Normal systolic function. Atria Normal left atrium. Normal right atrium. Tricuspid Valve Normal tricuspid valve. Mild tricuspid valve insufficiency. Pulmonary artery systolic pressure is 40 mmHg. Great Vessels Normal aortic root. Pericardium/Pleural Small (<1.0 cm) pericardial effusion. Epicardial fat. MMode/2D Measurements Calculations LVIDd: 4.0 cm IVSd: 0.98 cm Ao root diam: 2.9 cm LVIDs: 3.2 cm LVPWd: 0.95 cm RVDd: 3.0 cm FS: 20.2 % SV(MOD-sp4): 27.0 ml LVAd ap4: 23.0 cm2 LVAd ap2: 20.2 cm2 LVLd ap4: 7.1 cm LVLd ap2: 6.5 cm SI(MOD-sp4): 18.2 ml/m2 EDV(MOD-sp4): 60.8 ml EDV(MOD-sp2): 54.0 ml EDV(sp4-el): 62.8 ml EDV(sp2-el): 53.7 ml LVAs ap4: 15.5 cm2 LVAs ap2: 14.0 cm2 LVLs ap4: 6.0 cm LVLs ap2: 5.8 cm ESV(MOD-sp4): 33.8 ml ESV(MOD-sp2): 28.5 ml ESV(sp4-el): 33.8 ml ESV(sp2-el): 28.4 ml EF(MOD-sp4): 44.4 % EF(MOD-sp2): 47.2 % EF(sp4-el): 46.2 % SV(MOD-sp2): 25.5 ml SV(sp4-el): 29.0 ml LA dimension(2D): 2.5 cm SI(MOD-sp2): 17.1 ml/m2 TAPSE: 1.8 cm Doppler Measurements Calculations TV V2 max: 149.2 cm/sec TR max arnaldo: 300.4 cm/sec TV max P.9 mmHg TR max P.1 mmHg TV V2 mean: 111.0 cm/sec TV mean P.3 mmHg ECHO/Echo, Limited Study Interpretation Summary Normal LV size. The left ventricular ejection fraction is 45 %. There is moderate global hypokinesis of the left ventricle. Pulmonary artery systolic pressure is 40 mmHg. Compared to previous study, the left ventricular systolic function has improved.. Ordering Physician: Stewart Diane Referring Physician: CRISTINA SALAZAR Performed By: Danica Randle RDCS 06/08/241652 Date Stewart Diane MD CC: Dr. Stewart Diane MD; Dr. Martin Evans MD Date Dictated: 06/08/2443 Date Transcribed: 06/08/241652 Disassembler Product: Signed Normal [facility] Limited echocardiogram repor tOrdered By: Stewart Diane on 06-08-2024 Study report [facility] Work Phone: ALP [Catalytic activity/Vol] Ordered By: Martin Evans on 05-23-2024 Serum or plasma alkaline phosphatase measurement 123 U/L High 35-104 [facility] ALT [Catalytic activity/Vol] Ordered By: Martin Evans on 05-23-2024 Serum or plasma alanine aminotransferase (ALT) measurement 25 U/L <35 [facility] Absolute lymphocyte countOrd ered By: Martin Evans on 05-23-2024 Lymphocytes Auto (Unsp spec) [#/Vol] 1.38 10*3/uL 0.83-4.51 [facility] Absolute neutrophil countOrd ered By: Martin Evans on 05-23-2024 Absolute neutrophil count 5.4 X10^3/uL 2.0-7.7 [facility] Albumin [Mass/Vol]Ordered By : Martin Evans on 05-23-2024 Serum or plasma albumin measurement (mass/volume) 4.6 g/dL 3.4-4.8 [facility] Albumin/Globulin [Mass ratio ]Ordered By: Martin Evans on 05-23-2024 Serum or plasma albumin/globulin mass ratio 1.4 RATIO 0.9-2.4 [facility] Anion gap [Moles/Vol]Ordered By: Martin Evans on 05-23-2024 Anion gap in Serum or Plasma 10 5- [facility] Anion gap in Serum or Plasma Ordered By: Martin Evans on 05-23-2024 Anion gap [Moles/Vol] 10 mmol/L 5-15 [facility] Automated lymphocyte count a s percentage of total leukocytesOrdered By: Martin Evans on 05-23-2024 Lymphocytes/100 WBC Auto (Unsp spec) 17.6 % Low 19-41 [facility] BUN/creatinine ratioOrdered By: Martin Evans on 05-23-2024 Urea nitrogen/Creatinine [Mass ratio] 23.7 mg/mg High 10-20 [facility] BUN/creatinine ratio 23.7 RATIO High 10-20 [facility] Basophil percentageOrdered B y: Martin Evans on 05-23-2024 Basophils/100 WBC (Bld) 0.6 % 0-1 [facility] Basophil percentage 0.6 % 0-[address] [facility] Bilirubin, totalOrdered By: Martin Evans on 05-23-2024 Bilirubin [Mass/Vol] 1.17 mg/dL 0.00-1.30 [facility] Bilirubin, total 1.17 mg/dL 0.00-1.30 [facility] CBC W/Diff, Automatedon 05-07 Absolute Lymph 1.38 X10 3/uL Normal 0.83-4.51 [facility] Comment on above: Performed By: #### L 500.4050, L100.0100 #### [facility] [address] [place], [address] Absolute Neut 5.4 X10 3/uL Normal 2.0-7.7 [facility] Comment on above: Performed By: #### L 500.4050, L100.0100 #### [facility] [address] [place], [address] Basophils/100 WBC (Bld) 0.6 % Normal 0-1 [facility] Comment on above: Performed By: #### L 500.4050, L100.0100 #### [facility] [address] [place], [address] Eosinophils/100 WBC (Bld) 4.5 % Normal 0-5 [facility] Comment on above: Performed By: #### L 500.4050, L100.0100 #### [facility] [address] [place], [address] Erythrocyte distribution width (RBC) [Ratio] 12.1 % Normal 11.6-14.6 [facility] Comment on above: Performed By: #### L 500.4050, L100.0100 #### [facility] [address] [place], [address] Hematocrit (Bld) [Volume fraction] 38.8 % Normal 37-47 [facility] Comment on above: Performed By: #### L 500.4050, L100.0100 #### [facility] [address] [place], [address] Hemoglobin (Bld) [Mass/Vol] 13.0 g/dL Normal 12.0-15.0 [facility] Comment on above: Performed By: #### L 500.4050, L100.0100 #### [place] [facility] [address] [place], [address] IG% 0.400 Normal 0.0-0.9 [facility] Comment on above: Result Comment: IG% - Immature Granulocytes (promyelocytes, myelocytes and metamyelocytes) > 1% indicates that a LEFT SHIFT is Present. Performed By: #### L 500.4050, L100.0100 #### [facility] [address] [place], [address] Lymphocytes/100 WBC (Bld) 17.6 % Low 19-41 [facility] Comment on above: Performed By: #### L [id number], L100.0100 #### [facility] [address] [place], [address] MCH (RBC) [Entitic mass] 31.7 pg Normal 27.0-32.0 [facility] Comment on above: Performed By: #### L [id number], L100.0100 #### [facility] [address] [place], [address] MCHC (RBC) [Mass/Vol] 33.5 g/dL Normal 32-36 [facility] Comment on above: Performed By: #### L 500.4050, L100.0100 #### [facility] [address] [place], [address] MCV (RBC) [Entitic vol] 94.6 fL Normal 81-99 [facility] Comment on above: Performed By: #### L [id number], L100.0100 #### [facility] [address] [place], [address] Monocytes/100 WBC (Bld) 7.9 % Normal 0-10 [facility] Comment on above: Performed By: #### L 500.4050, L100.0100 #### [facility] [address] [place], [address] Neutrophils/100 WBC (Bld) 69.0 % Normal 47-70 [facility] Comment on above: Performed By: #### L 500.4050, L100.0100 #### [facility] [address] [place], [address] Nucleated RBC (Bld) [#/Vol] 0 10*3/uL Normal 0-5 [facility] Comment on above: Performed By: #### L 500.4050, L100.0100 #### [facility] [address] [place], [address] Platelet mean volume (Bld) [Entitic vol] 11.4 fL Normal 6.2-12.0 [facility] Comment on above: Performed By: #### L 500.4050, L100.0100 #### [facility] [address] [place], [address] Platelets (Bld) [#/Vol] 175 10*3/uL Normal 150-450 [facility] Comment on above: Performed By: #### L 500.4050, L100.0100 #### [facility] [address] [place], [address] RBC (Bld) [#/Vol] 4.10 10*6/uL Low 4.2-5.[address] [facility] Comment on above: Performed By: #### L 500.4050, L100.0100 #### [facility] [address] [place], [address] RDW SD 42.4 fl Normal 35.1-43.9 [facility] Comment on above: Performed By: #### L 500.4050, L100.0100 #### [facility] [address] [place], [address] WBC (Bld) [#/Vol] 7.8 10*3/uL Normal 4.4-11.0 [facility] Comment on above: Performed By: #### L 500.4050, L100.0100 #### [facility] [address] [place], [address] Calcium [Mass/Vol]Ordered By : Martin Evans on 05-23-2024 Serum or plasma calcium measurement (mass/volume) 8.9 mg/dL 7.6-11.0 [facility] Carbon dioxide, total [Moles /volume] in Central venous bloodOrdered By: Martin Evans on 05-23-2024 CO2 [Moles/Vol] 30.1 mmol/L 21.0-32.0 [facility] Carbon dioxide, total [Moles/volume] in Central venous blood 30.1 mmol/L 21.0-32.0 [facility] Chloride assayOrdered By: Karen Evans on 05-23-2024 Chloride [Moles/Vol] 97 mmol/L Low 98-108 [facility] Chloride assay 97 mmol/L Low 98-108 [facility] Comprehensive Metabolic Prof ilon 05-23-2024 Albumin [Mass/Vol] 4.6 g/dL Normal 3.4-4.8 [facility] Comment on above: Performed By: #### L 500.4050, L100.0100 #### [facility] [address] [place], [address] Albumin/Globulin [Mass ratio] 1.4 {ratio} Normal 0.9-2.4 [facility] Comment on above: Performed By: #### L 500.4050, L100.0100 #### [facility] [address] [place], [address] ALK PHOS 123 U/L High 35-104 [facility] Comment on above: Performed By: #### L 500.4050, L100.0100 #### [facility] [address] [place], [address] ALT [Catalytic activity/Vol] 25 U/L Normal <=34 [facility] Comment on above: Performed By: #### L 500.4050, L100.0100 #### [facility] [address] [place], [address] AST [Catalytic activity/Vol] 39 U/L High <=31 [facility] Comment on above: Performed By: #### L 500.4050, L100.0100 #### [facility] [address] [place], [address] Bilirubin [Mass/Vol] 1.17 mg/dL Normal 0.00-1.30 [facility] Comment on above: Performed By: #### L 500.4050, L100.0100 #### [facility] [address] [place], [address] BUN/CRE 23.7 RATIO High 10-20 [facility] Comment on above: Performed By: #### L 500.4050, L100.0100 #### [facility] [address] [place], [address] Calcium [Mass/Vol] 8.9 mg/dL Normal 7.6-11.0 [facility] Comment on above: Performed By: #### L 500.4050, L100.0100 #### [facility] [address] [place], [address] Chloride [Moles/Vol] 97 mmol/L Low 98-108 [facility] Comment on above: Performed By: #### L 500.4050, L100.0100 #### [facility] [address] [place], [address] CO2 [Moles/Vol] 30.1 mmol/L Normal 21.0-32.0 [facility] Comment on above: Performed By: #### L 500.4050, L100.0100 #### [facility] [address] [place], [address] Creatinine [Mass/Vol] 0.98 mg/dL Normal 0.70-1.20 [facility] Comment on above: Performed By: #### L 500.4050, L100.0100 #### [facility] [address] [place], [address] GAP 10 Normal 5-15 [facility] Comment on above: Performed By: #### L 500.4050, L100.0100 #### [facility] [address] [place], [address] GFR/1.73 sq M.predicted among non-blacks MDRD (S/P/Bld) [Vol rate/Area] 65 mL/min/{1.73_m2} Normal >60 [facility] Comment on above: Result Comment: mL/m in/1.73m2 CKD-EPI Creatinine Equation (2020) Performed By: #### L 500.4050, L100.0100 #### [facility] [address] [place], [address] Globulin (S) [Mass/Vol] 3.3 g/dL Normal 2.2-4.2 [facility] Comment on above: Performed By: #### L 500.4050, L100.0100 #### [facility] [address] [place], [address] Glucose [Mass/Vol] 119 mg/dL High 70-99 [facility] Comment on above: Performed By: #### L 500.4050, L100.0100 #### [facility] [address] [place], [address] Potassium [Moles/Vol] 4.0 mmol/L Normal 3.3-5.1 [facility] Comment on above: Performed By: #### L 500.4050, L100.0100 #### [facility] [address] [place], [address] Sodium [Moles/Vol] 138 mmol/L Normal 133-145 [facility] Comment on above: Performed By: #### L 500.4050, L100.0100 #### [facility] [address] [place], [address] T PROT 7.9 g/dL Normal 5.9-8.4 [facility] Comment on above: Performed By: #### L 500.4050, L100.0100 #### [facility] [address] [place], [address] Urea nitrogen [Mass/Vol] 23 mg/dL High 4-19 [facility] Comment on above: Performed By: #### L 500.4050, L100.0100 #### [facility] [address] [place], [address] Creatinine [Mass/Vol]Ordered By: Martin Evans on 05-23-2024 Serum creatinine measurement (mass/volume) 0.98 mg/dL 0.70-1.20 [facility] Eosinophil percentageOrdered By: Martin Evans on 05-23-2024 Eosinophils/100 WBC (Bld) 4.5 % 0-5 [facility] Eosinophil percentage 4.5 % 0-5 [facility] Erythrocyte distribution wid th (RBC) [Ratio]Ordered By: Martin Evans on 05-23-2024 Erythrocyte distribution width ratio 12.1 % 11.6-14.6 [facility] Erythrocyte distribution width standard deviation 42.4 fl 35.1-43.9 [facility] Erythrocyte distribution wid th ratioOrdered By: Martin Evans on 05-23-2024 Erythrocyte distribution width (RBC) [Ratio] 12.1 % 11.6-14.6 [facility] Erythrocyte distribution wid th standard deviationOrdered By: Janallisontyron Evans on 05-23-2024 Erythrocyte distribution width (RBC) [Ratio] 42.4 fl 35.1-43.9 [facility] GFR/1.73 sq M.predicted mark g non-blacks MDRD (S/P/Bld) [Vol rate/Area]Ordered By: Martin Evans on 05-23-2024 Glomerular filtration rate (GFR) estimation/1.73 sq m using serum, plasma, or whole b 65 >60 [facility] Glomerular filtration rate ( GFR) estimation/1.73 sq m using serum, plasma, or whole bOrdered By: Martin Evans on 05-23-2024 GFR/1.73 sq M.predicted among non-blacks MDRD (S/P/Bld) [Vol rate/Area] 65 mL/min/{1.73_m2} >60 [facility] Glucose [Mass/Vol]Ordered By : Martin Evans on 05-23-2024 Serum glucose measurement (mass/volume) 119 mg/dL High 70-99 [facility] Hematocrit Auto (Bld) [Volum e fraction]Ordered By: Martin Evans on 05-23-2024 Hematocrit (Bld) [Volume fraction] 38.8 % 37-47 [facility] Automated blood hematocrit (percentage) 38.8 % 37-47 [facility] Hemoglobin measurementOrdere d By: Martin Evans on 05-23-2024 Hemoglobin (Bld) [Mass/Vol] 13.0 g/dL 12.0-15.0 [facility] Hemoglobin measurement 13.0 g/dL 12.0-15.0 [facility] Immature granulocytes/100 WB C Auto (Bld)Ordered By: Martin Evans on 05-23-2024 Immature granulocytes/100 WBC (Bld) 0.400 % 0.0-0.9 [facility] Automated immature granulocyte percentage 0.400 % 0.0-0.9 [facility] Office Vis diann 05-23-2024 Internal Medicine Office Visit [facility] [address] [place], [place] [address] OFFICE VISIT Date of Service: 05/23/24 MR#: [id number] Acct: [id number] Name: TANVI GARZA Jaiden Rep #: [id number] : 1960 Provider: Dr. Martin oreilly MD Age/Sex: 63/F Location: [facility] Status: Signed Intake Vital Signs 02/24/24 09:02 05/23/24 08:29 05/23/24 08:35 Height 5 ft 4 in 5 ft 4 in Weight: 111 lb BMI 19.0 BP 128/70 H Blood Pressure Location Lt brachial Position Sitting Respiration 18 Pulse 64 Pulse Source Monitor Temp 98.2 F Temp Source Temporal Pulse Oximetry (%) 99 Oxygen Delivery Method room air Intake Visit Reasons: 3 M FU Chief Complaint: 3 M FU Is patient in pain?: No Allergies cholecalciferol (vitamin D3) Allergy (Severe, Verified 05/23/24 08:26) Rash chlorhexidine (From Karena-Hex) Allergy (Intermediate, Verified 05/23/24 08:26) Rash acetaminophen (From Tylenol) Allergy (Verified 05/23/24 08:26) Hives amoxicillin (Amoxicillin) Allergy (Verified 05/23/24 08:26) Hives amoxicillin trihydrate (From Trimox) Allergy (Verified 05/23/24 08:26) Hives codeine Allergy (Verified 05/23/24 08:26) Hives diazepam Allergy (Verified 05/23/24 08:26) Hives methocarbamol Allergy (Verified 05/23/24 08:26) Rash nabumetone Allergy (Verified 05/23/24 08:26) Rash Penicillins Allergy (Verified 05/23/24 08:26) Hives ranitidine HCl (From Zantac) Allergy (Verified 05/23/24 08:26) Hives ropinirole Allergy (Verified 05/23/24 08:26) Rash lisinopril Adverse Reaction (Intermediate, Verified 05/23/24 08:26) Dry hacking cough celecoxib (From Celebrex) Adverse Reaction (Verified 05/23/24 08:26) Nausea/Vom/Diarrhea ciprofloxacin Adverse Reaction (Verified 05/23/24 08:26) Itching citalopram hydrobromide (From Celexa) Adverse Reaction (Verified 05/23/24 08:26) Other cyclobenzaprine HCl (From Flexeril) Adverse Reaction (Verified 05/23/24 08:26) Nausea doxycycline Adverse Reaction (Verified 05/23/24 08:26) Other hydrocodone bitartrate (From Vicodin) Adverse Reaction (Verified 05/23/24 08:26) Nausea meloxicam Adverse Reaction (Verified 05/23/24 08:26) Other naproxen (From Naprosyn) Adverse Reaction (Verified 05/23/24 08:26) Nausea omeprazole Adverse Reaction (Verified 05/23/24 08:26) Nausea pramipexole Adverse Reaction (Verified 05/23/24 08:26) Other Medications ???Medication ???Instructions ???Recorded ???Confirmed ???Type cholecalciferol (vitamin D3) 50 50 mcg PO DAILY 01/15/21 05/23/24 History mcg (2,000 unit) capsule nebulizer accessories #1 ea 07/05/21 05/23/24 Rx furosemide 40 mg tablet 40 mg PO DAILY #90 tabs 08/18/23 0 05/23/24 Rx losartan 25 mg tablet 25 mg PO DAILY #90 tabs 08/18/23 0 05/23/24 Rx omeprazole 20 mg capsule,delayed 20 mg PO QDAY #90 caps 10/28/23 Rx release magnesium oxide 400 mg (241.3 mg 400 mg PO TID 01/27/24 05/23/24 Hi story magnesium) tablet carvedilol 12.5 mg tablet 12.5 mg PO BID this is a dose 01/0805/23/24 Rx increase #180 tabs albuterol sulfate 2.5 mg/3 mL 2.5 mg (3 mL) inhalation Q4H PRN 0 03/25/24 05/23/24 Rx (0.083 %) solution for nebulization shortness of breath or wheezing #180 mL Handicap Parking Placard #1 ea 04/18/24 05/23/24 Rx estradiol 0.5 mg tablet 0.5 mg PO DAILY #90 tabs 04/28/24 05/23/24 Rx simvastatin 20 mg tablet 20 mg PO QHS #90 tabs 04/28/24 Rx potassium chloride 20 mEq 20 meq PO BID #180 tabs 05/11/24 0 05/23/24 Rx tablet,extended release(part/cryst) lorazepam 1 mg tablet 1 mg PO DAILY anxiety 1 month #30 05/19/24 05/23/24 Rx tabs Have you fallen in the past year?: No PFSH Medical History (Updated 05/23/24 @ 12:[address] Martin Evans MD) Tobacco abuse, in remission Activities involving personal bathing and showering Lower extremity weakness Generalized anxiety disorder ICD (implantable cardioverter-defibril lator) battery depletion Malfunction of implantable defibrillator ventricular (ICD) lead Shortness of breath Hypercalcemia Vertigo Chronic diarrhea Weight loss, non-intentional Health care maintenance Hyperlipidemia Nonischemic cardiomyopathy Non-rheumatic tricuspid valve insufficiency Chronic systolic (congestive) heart failure Type 2 diabetes mellitus Chronic sinusitis Vitamin D deficiency Essential (primary) hypertension Hypomagnesemia Sinusitis Electrolyte abnormality Alcoholic cardiomyopathy Dizziness and giddiness Family history of CVA Family history of hyperlipidemia Family history of hypertension COPD (chronic obstructive pulmonary disease) GERD (gastroesophageal reflux disease) Depression with anxiety Cancer of vulva Nicotine dependence in remission Surgical History H/O vulvectomy (more content not included)... Normal [facility] Lymphocytes Auto (Unsp spec) [#/Vol]Ordered By: Martin Evans on 05-23-2024 Absolute lymphocyte count 1.38 X10^3/uL 0.83-4.51 [facility] Lymphocytes/100 WBC Auto (Un sp spec)Ordered By: Martin Evans on 05-23-2024 Automated lymphocyte count as percentage of total leukocytes 17.6 % Low 19-41 [facility] MCV (RBC) [Entitic vol]Order ed By: Martin Evans on 05-23-2024 MCV (mean corpuscular volume) determination 94.6 fL 81-99 [facility] MCV (mean corpuscular volume ) determinationOrdered By: Martin Evans on 05-23-2024 MCV (RBC) [Entitic vol] 94.6 fL 81-99 [facility] Mean corpuscular hemoglobin (MCH) determinationOrdered By: Martin Evans on 05-23-2024 MCH (RBC) [Entitic mass] 31.7 pg 27.0-32.0 [facility] Mean corpuscular hemoglobin (MCH) determination 31.7 pg 27.0-32.0 [facility] Mean corpuscular hemoglobin concentration (MCHC) determinationOrdered By: Martin Evans on 05-23-2024 Mean corpuscular hemoglobin concentration (MCHC) determination 33.5 g/dL 32-36 [facility] Mean platelet volume determi nationOrdered By: Martin Enocpieterwesley on 05-23-2024 Mean platelet volume determination 11.4 fl 6.2-12.0 [facility] Monocyte percentageOrdered B y: Jancamerontyron Stubbspieterwesley on 05-23-2024 Monocytes/100 WBC (Bld) 7.9 % 0-10 [facility] Monocyte percentage 7.9 % 0-[address] [facility] Neutrophil percentageOrdered By: Martin Stubbspieterwesley on 05-23-2024 Neutrophils/100 WBC (Bld) 69.0 % 47-70 [facility] Neutrophil percentage 69.0 % 47-70 [facility] No Panel InformationOrdered By: Martin Evans on 05-23-2024 39 U/L High <32 [facility] Nucleated red blood cell per centageOrdered By: Jancamerontyron Stubbspieterwesley on 05-23-2024 Nucleated red blood cell percentage 0 % 0-5 [facility] Platelet countOrdered By: Karen jen Enocpieterwesley on 05-23-2024 Platelets (Bld) [#/Vol] 175 10*3/uL 150-450 [facility] Platelet count 175 K/mm3 150-450 [facility] Potassium (Unsp spec) [Mass/ Vol]Ordered By: Martin Evans on 05-23-2024 Potassium measurement (mass/volume) 4.0 mmol/L 3.3-5.1 [facility] Potassium measurement (mass/ volume)Ordered By: Martin Evans on 05-23-2024 Potassium (Unsp spec) [Mass/Vol] 4.0 mmol/L 3.3-5.1 [facility] RBC Auto (Bld) [#/Vol]Ordere d By: Martin Evans on 05-23-2024 RBC (Bld) [#/Vol] 4.10 10*6/uL Low 4.2-5.[address] [facility] Automated blood erythrocyte count 4.10 M/mm3 Low 4.2-5.4 [facility] Serum creatinine measurement (mass/volume)Ordered By: Martin Evans on 05-23-2024 Creatinine [Mass/Vol] 0.98 mg/dL 0.70-1.20 [facility] Serum globulin measurementOr dered By: Martin Evans on 05-23-2024 Globulin (S) [Mass/Vol] 3.3 g/dL 2.2-4.2 [facility] Serum globulin measurement 3.3 g/dL 2.2-4.2 [facility] Serum glucose measurement (m ass/volume)Ordered By: Martin Evans on 05-23-2024 Glucose [Mass/Vol] 119 mg/dL High 70-99 [facility] Serum or plasma alanine joy otransferase (ALT) measurementOrdered By: Martin Evans on 05-23-2024 ALT [Catalytic activity/Vol] 25 U/L <35 [facility] Serum or plasma albumin omero urement (mass/volume)Ordered By: Martin Evans on 05-23-2024 Albumin [Mass/Vol] 4.6 g/dL 3.4-4.8 [facility] Serum or plasma albumin/glob ulin mass ratioOrdered By: Martin Evans on 05-23-2024 Albumin/Globulin [Mass ratio] 1.4 {ratio} 0.9-2.4 [facility] Serum or plasma alkaline kaitlynn sphatase measurementOrdered By: Martin Evans on 05-23-2024 ALP [Catalytic activity/Vol] 123 U/L High 35-104 [facility] Serum or plasma calcium omero urement (mass/volume)Ordered By: Martin Evans on 05-23-2024 Calcium [Mass/Vol] 8.9 mg/dL 7.6-11.0 [facility] Serum or plasma urea nitroge n measurement (mass/volume)Ordered By: Martin Evans on 05-23-2024 Urea nitrogen [Mass/Vol] 23 mg/dL High 4-19 [facility] Sodium levelOrdered By: Jan Evans on 05-23-2024 Sodium [Moles/Vol] 138 mmol/L 133-145 [facility] Sodium level 138 mmol/L 133-145 [facility] Total proteinOrdered By: Michael Evans on 05-23-2024 Protein [Mass/Vol] 7.9 g/dL 5.9-8.4 [facility] Total protein 7.9 g/dL 5.9-8.4 [facility] Urea nitrogen [Mass/Vol]Orde red By: Martin Evans on 05-23-2024 Serum or plasma urea nitrogen measurement (mass/volume) 23 mg/dL High 4-19 [facility] White blood cell (WBC) count Ordered By: Martin Evans on 05-23-2024 WBC (Bld) [#/Vol] 7.8 10*3/uL 4.4-11.0 [facility] White blood cell (WBC) count 7.8 K/mm3 4.4-11.0 [facility] Pacemaker Checkon 04-18-2024 Pacemaker Check [facility] [place] [facility] [address] [place] [address]. [address] [place] [address] Pacemaker Check Date of Service: 04/18/241457 MR#: [id number] Acct: [id number] Name: JOELTANVI P Rep #: [id number] : 1960 From: Aliyah Aguilar Age/Sex: 63/F [place] [facility] [place]: Signed Billing Codes ICD Device Billin ICD Dev Prog Eval, Multi Assessment and Plan Assessment and Plan (1) Presence of biventricular implantable cardioverter-defibril lator (ICD): Status: Chronic Comment: 09/19/2008, Gen change 03/10/24 with new LBB lead placed mid RV septum for LV pacing (2) Chronic systolic (congestive) heart failure: Status: Chronic (3) Nonischemic cardiomyopathy: Status: Chronic 04/18/24 1459 Date Aliyah Jose Signature: Date (if applicable) CC: Normal [facility] Pacemaker Checkon 03-21-[address] [facility] [place] [facility] [address] [place] [address] Pacemaker Check Date of Service: 03/21/24 1329 MR#: [id number] Acct: [id number] Name: TANVI GARZA Rep #: [id number] : 1960 From: Aliyah Aguilar Age/Sex: 63/F [place] [facility] [place] Status: Signed Billing Codes ICD Device Billin ICD Dev Prog Eval, Multi Assessment and Plan Assessment and Plan (1) ICD (implantable cardioverter-defibril lator) battery depletion: Status: Resolved Comment: CONTRACT PARALEGAL-D change out [facility] 03/10/24 (2) Malfunction of implantable defibrillator ventricular (ICD) lead: Status: Resolved Comment: New BSX CONTRACT PARALEGAL-D implanted [facility] 03/10/24 BSX Inogen [id number] LV CS lead capped with [id number] plug. LBB lead implanted mid RV septum for LBB pacing 03/10/24 BSX [id number] (3) Nonischemic cardiomyopathy: Status: Chronic (4) Presence of biventricular implantable cardioverter-defibril lator (ICD): Status: Chronic Comment: 09/19/2008, Gen change 03/10/24 with new LBB lead placed mid RV septum for LV pacing (5) Chronic systolic (congestive) heart failure: Status: Chronic Orders: Orders Echo, Limited Study 06/08/24 I42.8 - Other cardiomyopathies, I50.22 - Chronic systolic (congestive) heart failure, Z95.810 - Presence of automatic (implantable) cardiac defibrillator 03/21/24 1330 Date Aliyahjacklyn Aguilar Rebeca Signature: Date (if applicable) CC: Normal [facility] BASIC METABOLIC PANELon -0 Anion gap [Moles/Vol] 11 mmol/L Normal 7-17 [facility] Comment on above: Performed By: #### P LAT #### [facility] (DEFAULT) [address] [address] Calcium [Mass/Vol] 9.1 mg/dL Normal 8.6-10.5 [facility] Comment on above: Performed By: #### P LAT #### [facility] (DEFAULT) [address] [address] Chloride [Moles/Vol] 103 mmol/L Normal 98-108 [facility] Comment on above: Performed By: #### P LAT #### [facility] (DEFAULT) [address] [address] CO2 [Moles/Vol] 28 mmol/L Normal 21-31 [facility] Comment on above: Performed By: #### P LAT #### [facility] (DEFAULT) [address] [address] Creatinine [Mass/Vol] 0.90 mg/dL Normal 0.50-1.20 [facility] Comment on above: Performed By: #### P LAT #### [facility] (DEFAULT) [address] [address] GFR/1.73 sq M.predicted among non-blacks MDRD (S/P/Bld) [Vol rate/Area] 72 mL/min/{1.73_m2} Normal >=60 [facility] Comment on above: Result Comment: Repo rted eGFR is based on the CKD-EPI 2020 equation using creatinine, age, and sex. Performed By: #### P LAT #### [facility] (DEFAULT) [address] [address] Glucose [Mass/Vol] 113 mg/dL High 70-99 [facility] Comment on above: Performed By: #### P LAT #### [facility] (DEFAULT) [address] [place] [address] Osmolality [Osmolality] 290 mosm/kg Normal 278-305 [facility] Comment on above: Performed By: #### P LAT #### [facility] (DEFAULT) [address] [place] [address] Potassium [Moles/Vol] 4.8 mmol/L Normal 3.5-5.0 [facility] Comment on above: Performed By: #### P LAT #### [facility] (DEFAULT) [address] [place] [address] Sodium [Moles/Vol] 137 mmol/L Normal 135-145 [facility] Comment on above: Performed By: #### P LAT #### [facility] (DEFAULT) [address] [place] [address] Urea nitrogen [Mass/Vol] 14 mg/dL Normal 7-25 [facility] Comment on above: Performed By: #### P LAT #### [facility] (DEFAULT) [address] [place] [address] Urea nitrogen/Creatinine [Mass ratio] 16 mg/mg Normal [facility] Comment on above: Performed By: #### P LAT #### [facility] (DEFAULT) [address] [place] [address] EP PROCEDURE - EPS/ABLATION/ DEVICEon 03-11-2024 EP PROCEDURE - EPS/ABLATION/DEVICE Venogram demonstrated patent left axillary to SVC. Successful implantation of a new LBBA pacing lead to mid-RV septum and screwed deep to achieve LBB/LV pacing. Stim to peak in V5 was 73 msec/total paced QRS was 88 msec. Chronic CS lead capped. Chronic RA and RV leads continuously utilized with excellent sensing and capture thresholds. Old CONTRACT PARALEGAL-D generator removed. New CONTRACT PARALEGAL-D generator implanted. Normal CONTRACT PARALEGAL-D function with narrowest QRSd with LV pre-excited 80 msec from RV. Procedure tolerated well. Recommendations: Routine post-op wound care. Chest Xray. Follow-up with [place] [facility]. Table formatting from the original result was not included. Tanvi Garza EP Procedure - EPS/Ablation/Device Ordering Physician: DARREN ENGLE Order #: [id number] Study Date: 03/10/2024 Patient Information Name MRN Description Tanvi Garza [id number] 63 y.o. female Physicians Panel Physicians Referring Physician Case Authorizing Physician Len Shin MD (Primary) MD Darren Astorga MD Alissa N Kauffman, MD (Fellow) Procedures ICD Generator Implant ICD Generator Removal Lead Insertion Pre Procedure Diagnosis Failure of pacemaker lead, initial encounter [T82.110A] Post Procedure Diagnosis Failure of pacemaker lead, initial encounter [T82.110A] Indications Failure of pacemaker lead, initial encounter [T82.110A (ICD-10-CM)] Conclusion Venogram demonstrated patent left axillary to SVC. Successful implantation of a new LBBA pacing lead to mid-RV septum and screwed deep to achieve LBB/LV pacing. Stim to peak in V5 was 73 msec/total paced QRS was 88 msec. Chronic CS lead capped. Chronic RA and RV leads continuously utilized with excellent sensing and capture thresholds. Old CONTRACT PARALEGAL-D generator removed. New CONTRACT PARALEGAL-D generator implanted. Normal CONTRACT PARALEGAL-D function with narrowest QRSd with LV pre-excited 80 msec from RV. Procedure tolerated well. Recommendations: Routine post-op wound care. Chest Xray. Follow-up with [place] [facility]. Consent The procedure was explained including the potential risks of infection, heart perforation, re-operation, and other risks pertinent to procedure. Informed consent and permission to proceed was given. Site Preparation On the day of the procedure, the patient was brought to the operating room and the left chest prepped with chloraprep. Site prepped by Heaven Jordan RN. On the day of the procedure, the patient was brought to the operating room and the left chest prepped.The patient was draped in the usual sterile manner. Site prepped by Reyna Broussard. Pre-procedure Device Reprogramming The ICD/Pacemaker system data was interrogated, including lead(s), sensors(s), and battery. The stored data was reviewed. The device was programmed to the appropriate settings prior to the EP procedure. Patient is not dependent per device rep. Device Technique Generator pocket opened. After local anesthesia was infiltrated in the pre-pectoral (below fascia) region, an incision was made to accommodate the size of the hardware. This portion of the procedure was performed using blunt dissection and electrocautery. The retained lead system was carefully dissected free from the fibrous tissues. Hemostasis was then obtained using electrocautery. Legs were not elevated during venous entry access. The venous system was accessed using a single axillary vein stick (Andreyer). A new lead was placed into the LBB. The insertion technique used the following: KIT MICROPUNCTURE 5 FR MINI STICK, INTRODUCER SHEATH PRELUDE SNAP L13 CM OD8 FR, CATHETER/MULTIPURPOSE SITE SELECTIVE PACING SSPC2, GUIDEWIRE TIGERWIRE .035IN X 150CM and LEAD PACING 59CM ATRIAL VENTRICULAR INGEVITY+ EXTENDABLE Tested the left ventricular lead. Injury current checked: Yes. Langberg maneuver performed: No LB lead Sutured the lead. Suture used: two 2-0 Nurolon. Sutured the generator. Suture used: single 2-0 Nurolon The wound was irrigated copiously with 1 gram Ancef flush. It was then checked for hemostasis and foreign bodies. Closure used: Vicryl 2-0 and Stratafix 4-0 Drain/Packing: Tyrex Absorbable Antibacterial Envelope Dressing: Aquacel Specimens: none Wound Classification: Clean [Class I] Estimated Blood Loss: 15 ml Venogram A venogram was performed on the left subclavian. Injected with hand injection. Venogram performed via IV. Injected volume = 10 mL. 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 Normal [facility] Electrophysiology studyon Body surface area Derived from formula 1.49 m2 [facility] Venogram demonstrate d patent left axillary to SVC. Successful implantation of a new LBBA pacing lead to mid-RV septum and screwed deep to achieve LBB/LV pacing. Stim to peak in V5 was 73 msec/total paced QRS was 88 msec. Chronic CS lead capped. Chronic RA and RV leads continuously utilized with excellent sensing and capture thresholds. Old CONTRACT PARALEGAL-D generator removed. New CONTRACT PARALEGAL-D generator implanted. Normal CONTRACT PARALEGAL-D function with narrowest QRSd with LV pre-excited 80 msec from RV. Procedure tolerated well. Recommendations: Routine post-op wound care. Chest Xray. Follow-up with [place] [facility]. [facility] Laboratory - Chemistry and C hemistry - challengeon 03-11-2024 Glucose [Mass/Vol] 158 mg/dL High 70 - 99 mg/dL [facility] Magnesium [Mass/Vol] 2.6 mg/dL 1.6 - 2 .6 mg/dL [facility] - Chemistry and C hemistry - challengeOrdered By: Justyna Romero on 03-11-2024 Anion gap [Moles/Vol] 11 mmol/L 7 - 17 mmol/L [facility] Calcium [Mass/Vol] 9.1 mg/dL 8.6 - 10. 5 mg/dL [facility] Chloride [Moles/Vol] 103 mmol/L 98 - 10 8 mmol/L [facility] CO2 [Moles/Vol] 28 mmol/L 21 - 31 mmol/L [facility] Creatinine [Mass/Vol] 0.90 mg/dL 0.50 - 1.20 mg/dL [facility] Glucose [Mass/Vol] 113 mg/dL High 70 - 99 mg/dL [facility] Osmolality Calc [Osmolality] [facility] Potassium [Moles/Vol] 4.8 mmol/L 3.5 - 5.0 mmol/L [facility] Sodium [Moles/Vol] 137 mmol/L 135 - 145 mmol/L [facility] Urea nitrogen [Mass/Vol] 14 mg/dL 7 - 25 mg/dL [facility] Urea nitrogen/Creatinine [Mass ratio] 16 mg/mg [facility] Laboratory - Hematology and Cell countson 03-11-2024 Platelet mean volume (Bld) [Entitic vol] 11.4 fL 8.5 - 12.2 fL [facility] Platelets (Bld) [#/Vol] 166 10*3/uL 150 - 393 K/uL [facility] MAGNESIUMon 03-11-2024 Magnesium [Mass/Vol] 2.6 mg/dL Normal 1.6-2.6 [facility] Comment on above: Order Comment: [facility] [place] Electrolyte Replacement Protocol: Check prior to replacing potassium. Recheck magnesium level eight (8) hours after each 4g Magnesium Sulfate dose if most recent magnesium level is less than 1.3 mg/dL. Draw with next day morning labs after replacements for previous magnesium levels between 1.3-1.9 mg/dL. Performed By: #### P LAT #### [facility] (DEFAULT) [address] [place] [address] No Panel Informationon 03-11 [facility] Interpretation and review of laboratory results Abnormal [facility] POC Sample Type CAPBL [facility] Test performed at address of the patient encounter. [facility] Interpretation and review of laboratory results Normal [facility] Interpretation and review of laboratory results Normal [facility] Radiology Study observation (narrative) [facility] No Panel InformationOrdered By: Justyna Romero on 03-11-2024 eGFR, CKD-EPI, Female 73 - PINF [facility] Comment on above: Reported eGFR is bas ed on the CKD-EPI 2020 equation using creatinine, age, and sex. Interpretation and review of laboratory results Abnormal [facility] PLATELET COUNTon 03-11-2024 Platelet mean volume (Bld) [Entitic vol] 11.4 fL Normal 8.5-12.2 [facility] Comment on above: Performed By: #### P LAT #### [facility] (DEFAULT) [address] [place] [address] Platelets (Bld) [#/Vol] 166 10*3/uL Normal 150-393 [facility] Comment on above: Performed By: #### P LAT #### [facility] (DEFAULT) [address] [place] [address] CBC,PLATELETSon 03-10-2024 Hematocrit (Bld) [Volume fraction] 39.3 % Normal 34.9-44.3 [facility] Comment on above: Performed By: #### H EMOGC #### [facility] (DEFAULT) [address] [place] [address] Hemoglobin (Bld) [Mass/Vol] 13.1 g/dL Normal 11.4-15.2 [facility] Comment on above: Performed By: #### H EMOGC #### [facility] (DEFAULT) [address] [place] [address] MCV (RBC) [Entitic vol] 93.3 fL Normal 79.6-97.7 [facility] Comment on above: Performed By: #### H EMOGC #### [facility] (DEFAULT) [address] [address] Mean Cell Hgb 31.1 pg Normal 25.9-33.9 [facility] Comment on above: Performed By: #### H EMOGC #### [facility] (DEFAULT) [address] [place] [address] Mean Cell Hgb Conc 33.3 g/dL Normal 31.4-35.9 [facility] Comment on above: Performed By: #### H EMOGC #### [facility] (DEFAULT) [address] [address] Platelet mean volume (Bld) [Entitic vol] 11.3 fL Normal 8.5-12.2 [facility] Comment on above: Performed By: #### H EMOGC #### [facility] (DEFAULT) [address] [place] [address] Platelets (Bld) [#/Vol] 163 10*3/uL Normal 150-393 [facility] Comment on above: Performed By: #### H EMO #### [facility] (DEFAULT) [address] [place] [address] RBC (Bld) [#/Vol] 4.21 10*6/uL Normal 3.91-5.04 [facility] Comment on above: Performed By: #### H EMOGC #### [facility] (DEFAULT) [address] [place] [address]2365 RBC Distribution 12.3 % Normal 10.8-14.9 [facility] Comment on above: Performed By: #### H EMO #### [facility] (DEFAULT) [address] [place] [address] WBC (Bld) [#/Vol] 5.82 10*3/uL Normal 3.99-11.19 [facility] Comment on above: Performed By: #### H EMO #### [facility] (DEFAULT) [address] [place] [address] CHEM 7 (LYTES,BUN,CREA,GLUC) on 03-10-2024 Anion gap [Moles/Vol] 12 mmol/L Normal 7-17 [facility] Comment on above: Performed By: #### C HM7, MGO #### [facility] (DEFAULT) [address] [place] [address] Chloride [Moles/Vol] 100 mmol/L Normal 98-108 [facility] Comment on above: Performed By: #### C HM7, MGO #### [facility] (DEFAULT) [address] [place] [address] CO2 [Moles/Vol] 29 mmol/L Normal 21-31 [facility] Comment on above: Performed By: #### C HM7, MGO #### [facility] (DEFAULT) [address] [place] [address] Creatinine [Mass/Vol] 0.91 mg/dL Normal 0.50-1.20 [facility] Comment on above: Performed By: #### Valorie NOLAND, MGO #### [facility] (DEFAULT) [address] [place] [address] GFR/1.73 sq M.predicted among non-blacks MDRD (S/P/Bld) [Vol rate/Area] 71 mL/min/{1.73_m2} Normal >=60 [facility] Comment on above: Result Comment: Repo rted eGFR is based on the CKD-EPI 2020 equation using creatinine, age, and sex. Performed By: #### Valorie NOLAND, MGO #### [facility] (DEFAULT) [address] [address] Glucose [Mass/Vol] 102 mg/dL High 70-99 [facility] Comment on above: Performed By: #### Valorie NOLAND, MGO #### [facility] (DEFAULT) [address] [address] Osmolality [Osmolality] 288 mosm/kg Normal 278-305 [facility] Comment on above: Performed By: #### Valorie LYNCH7, MGO #### [facility] (DEFAULT) [address] [address] Potassium [Moles/Vol] 3.8 mmol/L Normal 3.5-5.0 [facility] Comment on above: Performed By: #### Valorie HM7, MGO #### [facility] (DEFAULT) [address] [address] Sodium [Moles/Vol] 137 mmol/L Normal 135-145 [facility] Comment on above: Performed By: #### Valorie LYNCH7, MGO #### [facility] (DEFAULT) [address] [address] Urea nitrogen [Mass/Vol] 16 mg/dL Normal 7-25 [facility] Comment on above: Performed By: #### Valorie HM7, MGO #### [facility] (DEFAULT) [address] [place] [address] Urea nitrogen/Creatinine [Mass ratio] 18 mg/mg Normal [facility] Comment on above: Performed By: #### C HM7, MGO #### [facility] (DEFAULT) [address] [place] [address] Electrophysiology studyon Radiology [facility]narrative[facility] and C hemistry - challengeon 03-10-2024 Glucose [Mass/Vol] 163 mg/dL High 70 - 99 mg/[facility] Glucose [Mass/Vol] 121 mg/dL High 70 - 99 mg/dL [facility] Glucose [Mass/Vol] 120 mg/dL High 70 - 99 mg/dL [facility] Magnesium [Mass/Vol] 1.4 mg/dL Low 1.6 - 2 .6 mg/dL [facility] Anion gap [Moles/Vol] 12 mmol/L 7 - 17 mmol/L [facility] Chloride [Moles/Vol] 100 mmol/L 98 - 10 8 mmol/L [facility] CO2 [Moles/Vol] 29 mmol/L 21 - 31 mmol/L [facility] Creatinine [Mass/Vol] 0.91 mg/dL 0.50 - 1.20 mg/dL [facility] Glucose [Mass/Vol] 102 mg/dL High 70 - 99 mg/dL [facility] Osmolality Calc [Osmolality] 288 [facility] Potassium [Moles/Vol] 3.8 mmol/L 3.5 - 5.0 mmol/L [facility] Sodium [Moles/Vol] 137 mmol/L 135 - 145 mmol/L [facility] Urea nitrogen [Mass/Vol] 16 mg/dL 7 - 25 mg/dL [facility] Urea nitrogen/Creatinine [Mass ratio] 18 mg/mg [facility] Laboratory - Coagulationon 0 03-10-2024 aPTT Coag (PPP) [Time] 25.7 s [facility] INR Coag (Bld) [Relative time] 1.1 {INR} 0.9 - 1.1 [facility] PT Coag (PPP) [Time] 14.5 s High [facility] - Hematology and Cell countson 03-10-2024 Erythrocyte distribution width (RBC) [Ratio] 12.3 % 10.8 - 14.9 % [facility] Hematocrit (Bld) [Volume fraction] 39.3 % 34.9 - 44.3 % [facility] Hemoglobin (Bld) [Mass/Vol] 13.1 g/dL 11.4 - 15.2 g/dL [facility] MCH (RBC) [Entitic mass] 31.1 pg 25.9 - 33.9 pg [facility] MCHC (RBC) [Mass/Vol] 33.3 g/dL 31.4 - 35.9 g/dL [facility] MCV (RBC) [Entitic vol] 93.3 fL 79.6 - 97.7 fL [facility] Platelet mean volume (Bld) [Entitic vol] 11.3 fL 8.5 - 12.2 fL [facility] Platelets (Bld) [#/Vol] 163 10*3/uL 150 - 393 K/uL [facility] RBC (Bld) [#/Vol] 4.21 10*6/uL [facility] WBC (Bld) [#/Vol] 5.82 10*3/uL 3.99 - 11. 19 K/uL [facility] MAGNESIUMon 03-10-2024 Magnesium [Mass/Vol] 1.4 mg/dL Low 1.6-2.6 [facility] Comment on above: Performed By: #### C HM7, MGO #### [facility] (DEFAULT) [address] [place] [address] No Panel Informationon 03-10 Interpretation and review of laboratory results Abnormal [facility] POC Sample Type CAPBL [facility] Test performed at address of the patient encounter. [facility] Interpretation and review of laboratory results Abnormal [facility] POC Sample Type CAPBL [facility] Test performed at address of the patient encounter. [facility] Interpretation and review of laboratory results Abnormal [facility] Interpretation and review of laboratory results Abnormal [facility] eGFR, CKD-EPI, Female 72 - PINF [facility] Comment on above: Reported eGFR is bas ed on the CKD-EPI 2020 equation using creatinine, age, and sex. Interpretation and review of laboratory results Abnormal [facility] Interpretation and review of laboratory results Normal [facility] PT,INR,PTTon 03-10-2024 aPTT Coag (Bld) [Time] 25.7 s Normal 24.0-34.3 [facility] Comment on above: Performed By: #### P TPTT #### [facility] (DEFAULT) [address] [place] [address] INR Coag (PPP) [Relative time] 1.1 {INR} Normal 0.9-1.1 [facility] Comment on above: Performed By: #### P TPTT #### [facility] (DEFAULT) [address] [place] [address] PT Coag (PPP) [Time] 14.5 s High 11.9-14.2 [facility] Comment on above: Performed By: #### P TPTT #### [facility] (DEFAULT) [address] [place] [address] XR CHEST PA AND LATERAL 2 EWSon 03-10-2024 XR CHEST PA AND LATERAL 2 VIEWS EXAM: XR CHEST PA AND LATERAL 2 VIEWS, 03/10/2024 17:13 PM COMPARISON: No prior studies available for comparison. CLINICAL INDICATIONS: Rule out Pneumothorax Following Device Implantation RELEVANT CLINICAL HISTORY: Please complete this Xray within 2-4 hours from the completion of the procedure. Please read as a stat read. Please page the on-call EP fellow at [phone] with any emergent finding such as pneumothorax.; FINDINGS: (Adequate technique) Implanted Devices: Left subclavian approach biventricular pacemaker/ICD in place with leads in the right atrium, right ventricle, and left ventricle. Lungs: Clear, without mass, interstitial disease, or consolidation. Pleural Spaces: No pleural effusion. No pneumothorax. Mediastinum and Lele: Normal Cardiac silhouette and great vessels: Normal heart size. Unremarkable aorta. Chest Wall: Normal IMPRESSION: No pneumothorax status post pacemaker/ICD placement. Normal [facility] XR Chest PA and Lateralon IMPRESSION: No pneumothorax status post pacemaker/ICD placement. OLOGY EXAM: XR CHEST PA AN D LATERAL 2 VIEWS, 03/10/2024 17:13 PM COMPARISON: No prior studies available for comparison. CLINICAL INDICATIONS: Rule out Pneumothorax Following Device Implantation RELEVANT CLINICAL HISTORY: Please complete this Xray within 2-4 hours from the completion of the procedure. Please read as a stat read. Please page the on-call EP fellow at [phone] with any emergent finding such as pneumothorax.; FINDINGS: (Adequate technique) Implanted Devices: Left subclavian approach biventricular pacemaker/ICD in place with leads in the right atrium, right ventricle, and left ventricle. Lungs: Clear, without mass, interstitial disease, or consolidation. Pleural Spaces: No pleural effusion. No pneumothorax. Mediastinum and Lele: Normal Cardiac silhouette and great vessels: Normal heart size. Unremarkable aorta. Chest Wall: Normal RADIOLOGY Matthew Mcnulty MD - 03/10/2024 EXAM: XR CHEST PA AND LATERAL 2 VIEWS, 03/10/2024 17:13 PM COMPARISON: No prior studies available for comparison. CLINICAL INDICATIONS: Rule out Pneumothorax Following Device Implantation RELEVANT CLINICAL HISTORY: Please complete this Xray within 2-4 hours from the completion of the procedure. Please read as a stat read. Please page the on-call EP fellow at [phone] with any emergent finding such as pneumothorax.; FINDINGS: (Adequate technique) Implanted Devices: Left subclavian approach biventricular pacemaker/ICD in place with leads in the right atrium, right ventricle, and left ventricle. Lungs: Clear, without mass, interstitial disease, or consolidation. Pleural Spaces: No pleural effusion. No pneumothorax. Mediastinum and Lele: Normal Cardiac silhouette and great vessels: Normal heart size. Unremarkable aorta. Chest Wall: Normal IMPRESSION IMPRESSION: No pneumothorax status post pacemaker/ICD placement. [facility] Radiology Study observation (narrative) [facility] XR Chest PA and LateralOrder ed By: Matthew Mcnulty on 03-10-2024 [facility] Work Phone: BASIC METABOLIC PANELon Anion gap [Moles/Vol] 10 mmol/L Normal 7-17 [facility] Comment on above: Performed By: #### C 7C #### [facility] (DEFAULT) [address] [place] [address] Calcium [Mass/Vol] 8.9 mg/dL Normal 8.6-10.5 [facility] Comment on above: Performed By: #### C 7C #### [facility] (DEFAULT) [address] [place] [address] Chloride [Moles/Vol] 105 mmol/L Normal 98-108 [facility] Comment on above: Performed By: #### C 7C #### [facility] (DEFAULT) [address] [place] [address] CO2 [Moles/Vol] 27 mmol/L Normal 21-31 [facility] Comment on above: Performed By: #### C 7C #### [facility] (DEFAULT) [address] [place] [address] Creatinine [Mass/Vol] 0.82 mg/dL Normal 0.50-1.20 [facility] Comment on above: Performed By: #### C 7C #### [facility] (DEFAULT) [address] [place] [address] GFR/1.73 sq M.predicted among non-blacks MDRD (S/P/Bld) [Vol rate/Area] 81 mL/min/{1.73_m2} Normal >=60 [facility] Comment on above: Result Comment: Repo rted eGFR is based on the CKD-EPI 2020 equation using creatinine, age, and sex. Performed By: #### C 7C #### [facility] (DEFAULT) [address] [place] [address] Glucose [Mass/Vol] 103 mg/dL High 70-99 [facility] Comment on above: Performed By: #### C 7C #### [facility] (DEFAULT) [address] [place] [address] Osmolality [Osmolality] 291 mosm/kg Normal 278-305 [facility] Comment on above: Performed By: #### C 7C #### [facility] (DEFAULT) [address] [place] [address] Potassium [Moles/Vol] 4.3 mmol/L Normal 3.5-5.0 [facility] Comment on above: Performed By: #### C 7C #### [facility] (DEFAULT) [address] [place] [address] Sodium [Moles/Vol] 138 mmol/L Normal 135-145 [facility] Comment on above: Performed By: #### C 7C #### [facility] (DEFAULT) [address] [place] [address] Urea nitrogen [Mass/Vol] 15 mg/dL Normal 7-25 [facility] Comment on above: Performed By: #### C 7C #### [facility] (DEFAULT) [address] [place] [address] Urea nitrogen/Creatinine [Mass ratio] 18 mg/mg Normal [facility] Comment on above: Performed By: #### C 7C #### [facility] (DEFAULT) [address] [place] [address] CBC,PLATELETSon 03-09-2024 Hematocrit (Bld) [Volume fraction] 36.8 % Normal 34.9-44.3 [facility] Comment on above: Performed By: #### P LAT #### [facility] (DEFAULT) [address] [address] Hemoglobin (Bld) [Mass/Vol] 12.4 g/dL Normal 11.4-15.2 [facility] Comment on above: Performed By: #### P LAT #### [facility] (DEFAULT) [address] [address] MCV (RBC) [Entitic vol] 93.9 fL Normal 79.6-97.7 [facility] Comment on above: Performed By: #### P LAT #### [facility] (DEFAULT) [address] [address] Mean Cell Hgb 31.6 pg Normal 25.9-33.9 [facility] Comment on above: Performed By: #### P LAT #### [facility] (DEFAULT) [address] [address] Mean Cell Hgb Conc 33.7 g/dL Normal 31.4-35.9 [facility] Comment on above: Performed By: #### P LAT #### [facility] (DEFAULT) [address] [address] Mean Platelet Volume Normal [facility] Comment on above: Result Comment: Not measured Performed By: #### P LAT #### [facility] (DEFAULT) [address] [address] Platelets (Bld) [#/Vol] 124 10*3/uL Low 150-393 [facility] Comment on above: Performed By: #### P LAT #### [facility] (DEFAULT) [address] [address] RBC (Bld) [#/Vol] 3.92 10*6/uL Normal 3.91-5.04 [facility] Comment on above: Performed By: #### P LAT #### [facility] (DEFAULT) [address] [address] RBC Distribution 12.6 % Normal 10.8-14.9 [facility] Comment on above: Performed By: #### P LAT #### [facility] (DEFAULT) [address] [place] [address] WBC (Bld) [#/Vol] 5.21 10*3/uL Normal 3.99-11.19 [facility] Comment on above: Performed By: #### P LAT #### [facility] (DEFAULT) [address] [address] Laboratory - Chemistry and C hemistry - challengeon 03-09-2024 Glucose [Mass/Vol] 112 mg/dL High 70 - 99 mg/dL [facility] Glucose [Mass/Vol] 115 mg/dL High 70 - 99 mg/dL [facility] Glucose [Mass/Vol] 118 mg/dL High 70 - 99 mg/dL [facility] Glucose [Mass/Vol] 111 mg/dL High 70 - 99 mg/dL [facility] Anion gap [Moles/Vol] 10 mmol/L 7 - 17 mmol/L [facility] Calcium [Mass/Vol] 8.9 mg/dL 8.6 - 10. 5 mg/dL [facility] Chloride [Moles/Vol] 105 mmol/L 98 - 10 8 mmol/L [facility] CO2 [Moles/Vol] 27 mmol/L 21 - 31 mmol/L [facility] Creatinine [Mass/Vol] 0.82 mg/dL 0.50 - 1.20 mg/dL [facility] Glucose [Mass/Vol] 103 mg/dL High 70 - 99 mg/dL [facility] Osmolality Calc [Osmolality] 291 [facility] Potassium [Moles/Vol] 4.3 mmol/L 3.5 - 5.0 mmol/L [facility] Sodium [Moles/Vol] 138 mmol/L 135 - 145 mmol/L [facility] Urea nitrogen [Mass/Vol] 15 mg/dL 7 - 25 mg/dL [facility] Urea nitrogen/Creatinine [Mass ratio] 18 mg/mg [facility] Laboratory - Hematology and Cell countson 03-09-2024 Erythrocyte distribution width (RBC) [Ratio] 12.6 % 10.8 - 14.9 % [facility] Hematocrit (Bld) [Volume fraction] 36.8 % 34.9 - 44.3 % [facility] Hemoglobin (Bld) [Mass/Vol] 12.4 g/dL 11.4 - 15.2 g/dL [facility] MCH (RBC) [Entitic mass] 31.6 pg 25.9 - 33.9 pg [facility] MCHC (RBC) [Mass/Vol] 33.7 g/dL 31.4 - 35.9 g/dL [facility] MCV (RBC) [Entitic vol] 93.9 fL 79.6 - 97.7 fL [facility] Platelet mean volume (Bld) [Entitic vol] [facility] Comment on above: Not measured Platelets (Bld) [#/Vol] 124 10*3/uL Low 150 - 393 K/uL [facility] RBC (Bld) [#/Vol] 3.92 10*6/uL [facility] WBC (Bld) [#/Vol] 5.21 10*3/uL 3.99 - 11. 19 K/uL [facility] No Panel Informationon 03-09 Interpretation and review of laboratory results Abnormal [facility] POC Sample Type CAPBL [facility] Test performed at address of the patient encounter. [facility] Interpretation and review of laboratory results Abnormal [facility] POC Sample Type CAPBL [facility] Test performed at address of the patient encounter. [facility] Interpretation and review of laboratory results Abnormal [facility] POC Sample Type CAPBL [facility] Test performed at address of the patient encounter. [facility] Interpretation and review of laboratory results Abnormal [facility] POC Sample Type CAPBL [facility] Test performed at address of the patient encounter. [facility] eGFR, CKD-EPI, Female 82 - PINF [facility] Comment on above: Reported eGFR is bas ed on the CKD-EPI 2020 equation using creatinine, age, and sex. Interpretation and review of laboratory results Abnormal [facility] Interpretation and review of laboratory results Abnormal [facility] CHEM 7 (LYTES,BUN,CREA,GLUC) on 03-08-2024 Anion gap [Moles/Vol] 8 mmol/L Normal 7-17 [facility] Comment on above: Performed By: #### Aaron VALERIO CHM7 #### [facility] (DEFAULT) [address] [place] [address] Chloride [Moles/Vol] 109 mmol/L High 98-108 [facility] Comment on above: Result Comment: Resu lts inconsistent with previous results Performed By: #### Aaron VALERIO CHM7 #### [facility] (DEFAULT) [address] [place] [address] CO2 [Moles/Vol] 25 mmol/L Normal - [facility] Comment on above: Performed By: #### Aaron VALERIO CHM7 #### [facility] (DEFAULT) [address] [place] [address] Creatinine [Mass/Vol] 0.75 mg/dL Normal 0.50-1.20 [facility] Comment on above: Performed By: #### Aaron VALERIO CHM7 #### [facility] (DEFAULT) [address] [place] [address] GFR/1.73 sq M.predicted among non-blacks MDRD (S/P/Bld) [Vol rate/Area] 90 mL/min/{1.73_m2} Normal >=60 [facility] Comment on above: Result Comment: Repo rted eGFR is based on the CKD-EPI 2020 equation using creatinine, age, and sex. Performed By: #### RICA CHEN7 #### [facility] (DEFAULT) [address] [place] [address] Glucose [Mass/Vol] 109 mg/dL High 70-99 [facility] Comment on above: Performed By: #### Aaron VALERIO CHM7 #### [facility] (DEFAULT) [address] [place] [address]67 Osmolality [Osmolality] 290 mosm/kg Normal 278-305 [facility] Comment on above: Performed By: #### RICA CHEN7 #### [facility] (DEFAULT) [address] [place] [address] 84020 Potassium [Moles/Vol] 4.5 mmol/L Normal 3.5-5.0 [facility] Comment on above: Performed By: #### RICA CHEN7 #### [facility] (DEFAULT) [address] [place] [address] 27065 Sodium [Moles/Vol] 137 mmol/L Normal 135-145 [facility] Comment on above: Performed By: #### RICA CHEN7 #### [facility] (DEFAULT) [address] [place] [address] 87096 Urea nitrogen [Mass/Vol] 17 mg/dL Normal 7-25 [facility] Comment on above: Performed By: #### RICA CHEN7 #### [facility] (DEFAULT) [address] [place] [address] 99962 Urea nitrogen/Creatinine [Mass ratio] 23 mg/mg Normal [facility] Comment on above: Performed By: #### RICA CHEN7 #### [facility] (DEFAULT) [address] [place] [address] 09174 Laboratory - Chemistry and C hemistry - challengeon 03-08-2024 Glucose [Mass/Vol] 143 mg/dL High 70 - 99 mg/dL [facility] Glucose [Mass/Vol] 131 mg/dL High 70 - 99 mg/dL [facility] Glucose [Mass/Vol] 127 mg/dL High 70 - 99 mg/dL [facility] Glucose [Mass/Vol] 109 mg/dL High 70 - 99 mg/dL [facility] Magnesium [Mass/Vol] 1.8 mg/dL 1.6 - 2 .6 mg/dL [facility] Laboratory - Chemistry and C hemistry - challengeOrdered By: Ena Peacock on 03-08-2024 Anion gap [Moles/Vol] 8 mmol/L 7 - 17 mmol/L [facility] Chloride [Moles/Vol] 109 mmol/L High 98 - 10 8 mmol/L [facility] Comment on above: Results inconsistent with previous results CO2 [Moles/Vol] 25 mmol/L 21 - 31 mmol/L [facility] Creatinine [Mass/Vol] 0.75 mg/dL 0.50 - 1.20 mg/dL [facility] Glucose [Mass/Vol] 109 mg/dL High 70 - 99 mg/dL [facility] Osmolality Calc [Osmolality] 290 [facility] Potassium [Moles/Vol] 4.5 mmol/L 3.5 - 5.0 mmol/L [facility] Sodium [Moles/Vol] 137 mmol/L 135 - 145 mmol/L [facility] Urea nitrogen [Mass/Vol] 17 mg/dL 7 - 25 mg/dL [facility] Urea nitrogen/Creatinine [Mass ratio] 23 mg/mg [facility] Laboratory - Hematology and Cell countson 03-08-2024 Platelet mean volume (Bld) [Entitic vol] [facility] Comment on above: Not measured Platelets (Bld) [#/Vol] 126 10*3/uL Low 150 - 393 K/uL [facility] MAGNESIUMon 03-08-2024 Magnesium [Mass/Vol] 1.8 mg/dL Normal 1.6-2.6 [facility] Comment on above: Performed By: #### M [facility] #### [facility] (DEFAULT) [address] [place] [address] No Panel Informationon 03-08 Interpretation and review of laboratory results Abnormal [facility] POC Sample Type CAPBL [facility] Test performed at address of the patient encounter. [facility] Interpretation and review of laboratory results Abnormal [facility] POC Sample Type CAPBL [facility] Test performed at address of the patient encounter. [facility] Interpretation and review of laboratory results Abnormal [facility] POC Sample Type CAPBL [facility] Test performed at address of the patient encounter. [facility] Interpretation and review of laboratory results Abnormal [facility] POC Sample Type CAPBL [facility] Test performed at address of the patient encounter. [facility] Interpretation and review of laboratory results Normal [facility] Interpretation and review of laboratory results Abnormal [facility] No Panel InformationOrdered By: Ena Peacock on 03-08-2024 eGFR, CKD-EPI, Female 90 - PINF [facility] Comment on above: Reported eGFR is bas ed on the CKD-EPI 2020 equation using creatinine, age, and sex. Interpretation and review of laboratory results Abnormal [facility] PLATELET COUNTon 03-08-2024 Mean Platelet Volume Normal [facility] Comment on above: Result Comment: Not measured Performed By: #### P LAT #### [facility] (DEFAULT) [address] [place] [address] Platelets (Bld) [#/Vol] 126 10*3/uL Low 150-393 [facility] Comment on above: Performed By: #### P LAT #### [facility] (DEFAULT) [address] [place] [address] CALCIUMon 03-07-2024 Calcium [Mass/Vol] 9.2 mg/dL Normal 8.6-10.5 [facility] Comment on above: Performed By: #### P LAT #### [facility] (DEFAULT) [address] [address] CBC,PLATELETSon 03-07-2024 Hematocrit (Bld) [Volume fraction] 39.9 % Normal 34.9-44.3 [facility] Comment on above: Performed By: #### H EMOGC #### [facility] (DEFAULT) [address] [address] Hemoglobin (Bld) [Mass/Vol] 13.6 g/dL Normal 11.4-15.2 [facility] Comment on above: Performed By: #### H EMOGC #### [facility] (DEFAULT) [address] [address] MCV (RBC) [Entitic vol] 93.2 fL Normal 79.6-97.7 [facility] Comment on above: Performed By: #### H EMOGC #### [facility] (DEFAULT) [address] [address] Mean Cell Hgb 31.8 pg Normal 25.9-33.9 [facility] Comment on above: Performed By: #### H EMOGC #### [facility] (DEFAULT) [address] [address] Mean Cell Hgb Conc 34.1 g/dL Normal 31.4-35.9 [facility] Comment on above: Performed By: #### H EMOGC #### [facility] (DEFAULT) [address] [address] Platelet mean volume (Bld) [Entitic vol] 12.2 fL Normal 8.5-12.2 [facility] Comment on above: Performed By: #### H EMOGC #### [facility] (DEFAULT) [address] [address] Platelets (Bld) [#/Vol] 158 10*3/uL Normal 150-393 [facility] Comment on above: Performed By: #### H EMOGC #### [facility] (DEFAULT) [address] [place] [address] RBC (Bld) [#/Vol] 4.28 10*6/uL Normal 3.91-5.04 [facility] Comment on above: Performed By: #### H EMOGC #### [facility] (DEFAULT) [address] [place] [address] 68131 RBC Distribution 12.3 % Normal 10.8-14.9 [facility] Comment on above: Performed By: #### H EMO #### [facility] (DEFAULT) [address] [place] [address] WBC (Bld) [#/Vol] 6.60 10*3/uL Normal 3.99-11.19 [facility] Comment on above: Performed By: #### [facility] [place] #### [facility] (DEFAULT) [address] [place] [address] CHEM 6 (LYTES, BUN CREA)on 1 Anion gap [Moles/Vol] 14 mmol/L Normal 7-17 [facility] Comment on above: Order Comment: Need creatinine level for venogram Performed By: #### P LAT #### [facility] (DEFAULT) [address] [place] [address] Chloride [Moles/Vol] 99 mmol/L Normal 98-108 [facility] Comment on above: Order Comment: Need creatinine level for venogram Performed By: #### P LAT #### [facility] (DEFAULT) [address] [place] [address]661 CO2 [Moles/Vol] 29 mmol/L Normal 21-31 [facility] Comment on above: Order Comment: Need creatinine level for venogram Performed By: #### P LAT #### [facility] (DEFAULT) [address] [place] [address]30 Creatinine [Mass/Vol] 0.81 mg/dL Normal 0.50-1.20 [facility] Comment on above: Order Comment: Need creatinine level for venogram Performed By: #### P LAT #### [facility] (DEFAULT) [address] [place] [address] GFR/1.73 sq M.predicted among non-blacks MDRD (S/P/Bld) [Vol rate/Area] 82 mL/min/{1.73_m2} Normal >=60 [facility] Comment on above: Order Comment: Need creatinine level for venogram Result Comment: Repo rted eGFR is based on the CKD-EPI 2020 equation using creatinine, age, and sex. Performed By: #### P LAT #### [facility] (DEFAULT) [address] [place] [address]381 Potassium [Moles/Vol] 3.6 mmol/L Normal 3.5-5.0 [facility] Comment on above: Order Comment: Need creatinine level for venogram Performed By: #### P LAT #### [facility] (DEFAULT) [address] [place] [address]702 Sodium [Moles/Vol] 138 mmol/L Normal 135-145 [facility] Comment on above: Order Comment: Need creatinine level for venogram Performed By: #### P LAT #### [facility] (DEFAULT) [address] [place] [address] 26507 Urea nitrogen [Mass/Vol] 13 mg/dL Normal 7-25 [facility] Comment on above: Order Comment: Need creatinine level for venogram Performed By: #### P LAT #### [facility] (DEFAULT) [address] [place] [address] Urea nitrogen/Creatinine [Mass ratio] 16 mg/mg Normal [facility] Comment on above: Order Comment: Need creatinine level for venogram Performed By: #### P LAT #### [facility] (DEFAULT) [address] [place] [address] EP PROCEDURE - EPS/ABLATION/ DEVICEon 03-07-2024 EP PROCEDURE - EPS/ABLATION/DEVICE Venogram template ELECTROPHYSIOLOGY SERVICE OPERATIVE REPORT PROCEDURE: Left sided venogram OPERATION PERFORMED: -Contrast venogram on left axillary vein Head Paper Tester: Memo Yee MD CCEP FELLOW: None ANESTHESIA: None TIME OUT: Time out was completed with verification of the correct patient identity, procedure to be performed, procedure site and implanted equipment. INDICATION FOR PROCEDURE: H/o BIV ICD PROCEDURE AND FINDINGS: The patient was brought to the electrophysiology laboratory at [facility] in post-absorbtive state. Informed consent was given by the patient prior to the procedure and confirmed. Through the IV line, 15 ml of iodine contrast was given which showed patent left axillary and subclavian system. ESTIMATED BLOOD LOSS: 2cc COMPLICATIONS: None. CONCLUSION: Patent left axillary and subclavian vein Thank you for allowing me to take care of this wonderful patient. Please do not hesitate to call with any questions in care of this patient. Memo Yee MD Assistant Manager Quality Managementwafer machine operator-Clinical Department of Cardiology [facility] Table formatting from the original result was not included. Tanvi Garza EP Procedure - EPS/Ablation/Device Ordering Physician: DARREN ENGLE Order #: [id number] Study Date: 03/07/2024 Patient Information Name MRN Description Tanvi Hwang Joel [id number] 63 y.o. female Physicians Panel Physicians Referring Physician Case Authorizing Physician Memo Yee MD (Primary) MD Darren Astorga MD Procedures VENOGRAM Pre Procedure Diagnosis Failure of pacemaker lead, initial encounter [T82.110A] Post Procedure Diagnosis Failure of pacemaker lead, initial encounter [T82.110A] Indications Failure of pacemaker lead, initial encounter [T82.110A (ICD-10-CM)] Conclusion Venogram template ELECTROPHYSIOLOGY SERVICE OPERATIVE REPORT PROCEDURE: Left sided venogram OPERATION PERFORMED: -Contrast venogram on left axillary vein Head Paper Tester: Memo Yee MD CCEP FELLOW: None ANESTHESIA: None TIME OUT: Time out was completed with verification of the correct patient identity, procedure to be performed, procedure site and implanted equipment. INDICATION FOR PROCEDURE: H/o BIV ICD PROCEDURE AND FINDINGS: The patient was brought to the electrophysiology laboratory at [facility] in post-absorbtive state. Informed consent was given by the patient prior to the procedure and confirmed. Through the IV line, 15 ml of iodine contrast was given which showed patent left axillary and subclavian system. ESTIMATED BLOOD LOSS: 2cc COMPLICATIONS: None. CONCLUSION: Patent left axillary and subclavian vein Thank you for allowing me to take care of this wonderful patient. Please do not hesitate to call with any questions in care of this patient. Memo Yee MD Assistant Manager Quality Managementwafer machine operator-Clinical Department of Cardiology [facility] Consent The procedure was explained including the potential risks of infection, heart perforation, re-operation, and other risks pertinent to procedure. Informed consent and permission to proceed was given. Implants No implant documentation for this case. Fluoro Time - Device Fluoro time = 0.6 minutes. Total dose = 2 mGy. Total DAP = 0.22 Gy-cm2. Measurements BSA: 1.49 m2 Complications Complications documented before study signed (03/07/2024 4:32 PM) No complications were associated with this study. Documented by Memo Yee MD - 03/07/2024 4:25 PM Electrophysiology Lab Attending Physician Statement and Signature I personally preformed and/or personally supervised and was present for this entire procedure, including the review and interpretation of all electrophysiologic tracings acquired during the course of this study. The medications listed have been ordered by me, and have been administered under my direct supervision. Signed at 1625 EST ABN Associated with this Order There is no ABN associated with this order. Normal [facility] Electrophysiology studyOrder ed By: Memo Yee on 03-07-2024 Body surface area Derived from formula 1.49 m2 [facility] Work Phone: [facility] Work Phone: Electrophysiology studyon Venogram template ELECTROPHYSIOLOGY SERVICE OPERATIVE REPORT PROCEDURE: Left sided venogram OPERATION PERFORMED: -Contrast venogram on left axillary vein Head Paper Tester: Memo Yee MD CCEP FELLOW: None ANESTHESIA: None TIME OUT: Time out was completed with verification of the correct patient identity, procedure to be performed, procedure site and implanted equipment. INDICATION FOR PROCEDURE: H/o BIV ICD PROCEDURE AND FINDINGS: The patient was brought to the electrophysiology laboratory at [facility] in post-absorbtive state. Informed consent was given by the patient prior to the procedure and confirmed. Through the IV line, 15 ml of iodine contrast was given which showed patent left axillary and subclavian system. ESTIMATED BLOOD LOSS: 2cc COMPLICATIONS: None. CONCLUSION: Patent left axillary and subclavian vein Thank you for allowing me to take care of this wonderful patient. Please do not hesitate to call with any questions in care of this patient. Memo Yee MD Assistant Manager Quality Managementwafer machine operator-Clinical Department of Cardiology [facility] Rad[facility] and C hem[facility] - challengeon 03-07-2024 Glucose [Mass/Vol] 196 mg/dL High 70 - 99 [facility] Anion gap [Moles/Vol] 14 mmol/L 7 - 17 mmol/L [facility] Calcium [Mass/Vol] 9.2 mg/dL 8.6 - 10. 5 mg/dL [facility] Chloride [Moles/Vol] 99 mmol/L 98 - 10 8 mmol/L [facility] CO2 [Moles/Vol] 29 mmol/L 21 - 31 mmol/L [facility] Creatinine [Mass/Vol] 0.81 mg/dL 0.50 - 1.20 mg/dL [facility] Phosphate [Mass/Vol] 2.7 mg/dL 2.2 - 4 .6 mg/dL [facility] Potassium [Moles/Vol] 3.6 mmol/L 3.5 - 5.0 mmol/L [facility] Sodium [Moles/Vol] 138 mmol/L 135 - 145 mmol/L [facility] Urea nitrogen [Mass/Vol] 13 mg/dL 7 - 25 mg/dL [facility] Urea nitrogen/Creatinine [Mass ratio] 16 mg/mg [facility] Laboratory - Chemistry and C hemistry - challengeOrdered By: Drew Naidu on 03-07-2024 Magnesium [Mass/Vol] 0.6 mg/dL Critically low 1.6 - 2.6 mg/dL [facility] - Coagulationon 1 aPTT Coag (PPP) [Time] 25.7 s [facility] INR Coag (Bld) [Relative time] 1.2 {INR} High 0.9 - 1.1 [facility] PT Coag (PPP) [Time] 15.5 s High [facility] Laboratory - Hematology and Cell countson 03-07-2024 Erythrocyte distribution width (RBC) [Ratio] 12.3 % 10.8 - 14.9 % [facility] Hematocrit (Bld) [Volume fraction] 39.9 % 34.9 - 44.3 % [facility] Hemoglobin (Bld) [Mass/Vol] 13.6 g/dL 11.4 - 15.2 g/dL [facility] MCH (RBC) [Entitic mass] 31.8 pg 25.9 - 33.9 pg [facility] MCHC (RBC) [Mass/Vol] 34.1 g/dL 31.4 - 35.9 g/dL [facility] MCV (RBC) [Entitic vol] 93.2 fL 79.6 - 97.7 fL [facility] Platelet mean volume (Bld) [Entitic vol] 12.2 fL 8.5 - 12.2 fL [facility] Platelets (Bld) [#/Vol] 158 10*3/uL 150 - 393 K/uL [facility] RBC (Bld) [#/Vol] 4.28 10*6/uL [facility] WBC (Bld) [#/Vol] 6.60 10*3/uL 3.99 - 11. 19 K/uL [facility] MAGNESIUMon 03-07-2024 Magnesium [Mass/Vol] 0.6 mg/dL Critically low 1.6-2.6 [facility] Comment on above: Performed By: #### P LAT #### [facility] (DEFAULT) [address] [place] [address] No Panel Informationon 03-07 Interpretation and review of laboratory results Abnormal [facility] POC Sample Type CAPBL [facility] Test performed at address of the patient encounter. [facility] eGFR, CKD-EPI, Female 82 - PINF [facility] Comment on above: Reported eGFR is bas ed on the CKD-EPI 2020 equation using creatinine, age, and sex. Interpretation and review of laboratory results Normal [facility] Interpretation and review of laboratory results Abnormal [facility] Interpretation and review of laboratory results Normal [facility] No Panel InformationOrdered By: Drew Naidu on 03-07-2024 Interpretation and review of laboratory results Abnormal [facility] PHOSPHATE, INORGANICon 03-07 Phosphorous 2.7 mg/dL Normal 2.2-4.6 [facility] Comment on above: Performed By: #### P LAT #### [facility] (DEFAULT) [address] [place] [address] PT,INR,PTTon 03-07-2024 aPTT Coag (Bld) [Time] 25.7 s Normal 24.0-34.3 [facility] Comment on above: Performed By: #### P TPTT #### [facility] (DEFAULT) [address] [place] [address] INR Coag (PPP) [Relative time] 1.2 {INR} High 0.9-1.1 [facility] Comment on above: Performed By: #### P TPTT #### [facility] (DEFAULT) [address] [place] [address] PT Coag (PPP) [Time] 15.5 s High 11.9-14.2 [facility] Comment on above: Performed By: #### P TPTT #### [facility] (DEFAULT) [address] [place] [address] ALP [Catalytic activity/Vol] Ordered By: Nilda Pino on 02-24-2024 Serum or plasma alkaline phosphatase measurement 76 U/L 45-117 [facility] ALT [Catalytic activity/Vol] Ordered By: Nilda Pino on 02-24-2024 Serum or plasma alanine aminotransferase (ALT) measurement 36 U/L 13-56 [facility] Albumin [Mass/Vol]Ordered By : Nilda Pino on 02-24-2024 Serum or plasma albumin measurement (mass/volume) 4.2 g/dL 3.2-5.0 [facility] Bilirubin, totalOrdered By: Nilda Pino on 02-24-2024 Bilirubin, total 2.10 mg/dL High 0.20-1.00 [facility] Bilirubin.direct [Mass/Vol]O rdered By: Nilda Pino on 02-24-2024 Bilirubin direct 0.50 mg/dL High 0.00-0.30 [facility] Cholesterol [Mass/Vol]Ordere d By: Nilda Pion on 02-24-2024 Serum or plasma cholesterol measurement (mass/volume) 136 mg/dL <200 [facility] High density lipoprotein (HD L) measurementOrdered By: Nilda Pino on 02-24-2024 High density lipoprotein (HDL) measurement 69 mg/dL >40 [facility] Office Vis iton 02-24-2024 Internal Medicine Office Visit [facility] [address] [place] [address] [place] [address] OFFICE VISIT Date of Service: 02/24/24 MR#: [id number] Acct: [id number] Name: TANVI GARZA Jaiden Rep #: [id number] : 1960 Provider: Dr. Martin oreilly MD Age/Sex: 63/F [place] [facility] Status: Signed Intake Vital Signs 11/16/23 09:22 02/16/24 07:56 02/24/24 09:02 Height 5 ft 4 in 5 ft 4 in 5 ft 4 in Weight: 105 lb BMI 18.0 BP 122/64 H Blood Pressure Location Rt brachial Position Sitting Respiration 17 Pulse 76 Pulse Source Monitor Temp 96.8 F L Temp Source Temporal Pulse Oximetry (%) 99 Oxygen Delivery Method room air Intake Visit Reasons: 3 m fu Chief Complaint: 3 M FU Is patient in pain?: No Allergies cholecalciferol (vitamin D3) Allergy (Severe, Verified 02/24/24 09:03) Rash chlorhexidine (From Karena-Hex) Allergy (Intermediate, Verified 02/24/24 09:03) Rash acetaminophen (From Tylenol) Allergy (Verified 02/24/24 09:03) Hives amoxicillin (Amoxicillin) Allergy (Verified 02/24/24 09:03) Hives amoxicillin trihydrate (From Trimox) Allergy (Verified 02/24/24 09:03) Hives codeine Allergy (Verified 02/24/24 09:03) Hives diazepam Allergy (Verified 02/24/24 09:03) Hives methocarbamol Allergy (Verified 02/24/24 09:03) Rash nabumetone Allergy (Verified 02/24/24 09:03) Rash Penicillins Allergy (Verified 02/24/24 09:03) Hives ranitidine HCl (From Zantac) Allergy (Verified 02/24/24 09:03) Hives ropinirole Allergy (Verified 02/24/24 09:03) Rash lisinopril Adverse Reaction (Intermediate, Verified 02/24/24 09:03) Dry hacking cough celecoxib (From Celebrex) Adverse Reaction (Verified 02/24/24 09:03) Nausea/Vom/Diarrhea ciprofloxacin Adverse Reaction (Verified 02/24/24 09:03) Itching citalopram hydrobromide (From Celexa) Adverse Reaction (Verified 02/24/24 09:03) Other cyclobenzaprine HCl (From Flexeril) Adverse Reaction (Verified 02/24/24 09:03) Nausea doxycycline Adverse Reaction (Verified 02/24/24 09:03) Other hydrocodone bitartrate (From Vicodin) Adverse Reaction (Verified 02/24/24 09:03) Nausea meloxicam Adverse Reaction (Verified 02/24/24 09:03) Other naproxen (From Naprosyn) Adverse Reaction (Verified 02/24/24 09:03) Nausea omeprazole Adverse Reaction (Verified 02/24/24 09:03) Nausea pramipexole Adverse Reaction (Verified 02/24/24 09:03) Other Medications ???Medication ???Instructions ???Recorded ???Confirmed ???Type cholecalciferol (vitamin D3) 50 50 mcg PO DAILY 01/15/21 02/24/24 History mcg (2,000 unit) capsule nebulizer accessories #1 ea 07/05/21 02/24/24 Rx potassium chloride 20 mEq 20 meq PO BID #180 tabs 02/11/23 02/24/24 Rx tablet,extended release(part/cryst) simvastatin 20 mg tablet 20 mg PO QHS #90 tabs 05/21/23 02/24/24 Rx estradiol 0.5 mg tablet 0.5 mg PO DAILY #90 tabs 05/22/23 02/24/24 Rx furosemide 40 mg tablet 40 mg PO DAILY #90 tabs 08/18/23 02/24/24 Rx losartan 25 mg tablet 25 mg PO DAILY #90 tabs 08/18/23 02/24/24 Rx omeprazole 20 mg capsule,delayed 20 mg PO QDAY #90 caps 10/28/23 02/24/24 Rx release magnesium oxide 400 mg (241.3 mg 400 mg PO TID 01/27/24 02/24/24 History magnesium) tablet lorazepam 2 mg tablet 1 mg (1/2 x 2 mg) PO DAILY anxiety 01/28/24 02/24/24 Rx 1 month #15 tabs albuterol sulfate 2.5 mg/3 mL 2.5 mg (3 mL) inhalation Q4H PRN 01/29/24 02/24/24 Rx (0.083 %) solution for nebulization shortness of breath or wheezing #90 mL carvedilol 12.5 mg tablet 12.5 mg PO BID this is a dose 02/03/24 02/24/24 Rx increase #180 tabs Have you fallen in the past year?: No Nurse's Note: pt reports that she started Prednisone 02/17/24 and just finished her prednisone from the Hospital on Thursday. [facility] Medical History (Updated 02/24/24 @ 10:[address] Martin Evans MD) Generalized anxiety disorder ICD (implantable cardioverter-defibril lator) battery depletion Malfunction of implantable defibrillator ventricular (ICD) lead Shortness of breath Hypercalcemia Vertigo Chronic diarrhea Weight loss, non-intentional Health care maintenance Hyperlipidemia Nonischemic cardiomyopathy Non-rheumatic tricuspid valve insufficiency Chronic systolic (congestive) heart failure Type 2 diabetes mellitus Chronic sinusitis Vitamin D deficiency Essential (primary) hypertension Hypomagnesemia Sinusitis Electrolyte abnormality Alcoholic cardiomyopathy Dizziness and giddiness Family history of CVA Family history of hyperlipidemia Family history of hypertension COPD (chronic obstructive pulmonary disease) GERD (gastroesophageal reflux disease) Depression with anxiety Cancer of vulva Nicotine dependence in remission Surgical History H/O vulvectomy ( 11/2021) History of left heart catheter (more content not included)... Normal [facility] Lipid Profileon 02-24-2024 Cholesterol [Mass/Vol] 136 mg/dL Normal 200 [facility] Comment on above: Result Comment: <200 mg/dL Desirable 200-240 mg/dL Borderline >240 mg/dL High Risk Performed By: #### L 500.3400, L500.4100 ####[facility] [address] [place], [address] Cholesterol in HDL [Mass/Vol] 69 mg/dL Normal [facility] Comment on above: Result Comment: The drugs N-Acetylcysteine and Metamizole may falsely depress this assay. Reference Range HDL <40 mg/dL Low HDL Cholesterol HDL >or= 60 mg/dL High HDL Cholesterol Performed By: #### L 500.3400, L500.4100 ####[facility] [address] [place], [address] Cholesterol in LDL [Mass/Vol] 47 mg/dL Normal 0-130 [facility] Comment on above: Performed By: #### L 500.3400, L500.4100 ####[facility] [address] [place], [address] Cholesterol in VLDL [Mass/Vol] 20 mg/dL Normal 5-40 [facility] Comment on above: Performed By: #### L 500.3400, L500.4100 ####[facility] [address] [place], [address] Triglyceride [Mass/Vol] 99 mg/dL Normal [facility] Comment on above: Result Comment: The drugs N-Acetylcysteine and Metamizole may falsely depress this assay. Serum Triglycerides Reference Interval Normal <150 mg/dL Borderline high 150 - 199 mg/dL High 200 - 499 mg/dL Very High > or = 500 mg/dL Performed By: #### L 500.3400, L500.4100 ####[facility] [address] [place], [address] Liver Profileon 02-24-2024 Albumin [Mass/Vol] 4.2 g/dL Normal 3.2-5.0 [facility] Comment on above: Performed By: #### L 500.3400, L500.4100 ####[facility] [address] [place], [address] ALK P 76 U/L Normal 45-117 [facility] Comment on above: Performed By: #### L 500.3400, L500.4100 ####[facility] [address] [place], [address] ALT [Catalytic activity/Vol] 36 U/L Normal 13-56 [facility] Comment on above: Performed By: #### L 500.3400, L500.4100 ####[facility] [address] [place], [address] AST [Catalytic activity/Vol] 32 U/L Normal 15-37 [facility] Comment on above: Performed By: #### L 500.3400, L500.4100 ####[facility] [address] [place], [address] Bilirubin [Mass/Vol] 2.10 mg/dL High 0.20-1.00 [facility] Comment on above: Result Comment: For patients on eltrombopag therapy, use of Dimension [place] TBIL is not recommended. Performed By: #### L 500.3400, L500.4100 ####[facility] [address] [place], [address] Bilirubin.direct [Mass/Vol] 0.50 mg/dL High 0.00-0.30 [facility] Comment on above: Performed By: #### L 500.3400, L500.4100 ####[facility] [address] [place], [address] Globulin (S) [Mass/Vol] 3.7 g/dL Normal 2.2-4.2 [facility] Comment on above: Performed By: #### L 500.3400, L500.4100 ####[facility] [address] [place], [address] T PROT 7.9 g/dL Normal 6.4-8.2 [facility] Comment on above: Performed By: #### L 500.3400, L500.4100 ####[facility] [address] [place], [address] Low density lipoprotein (LDL ) cholesterol measurementOrdered By: Nilda Pino on 02-24-2024 Low density lipoprotein (LDL) cholesterol measurement 47 mg/dL 0-130 [facility] Magnesiumon 02-24-2024 Magnesium [Mass/Vol] 1.6 mg/dL Normal 1.6-2.6 [facility] Comment on above: Performed By: #### L 501.5200 ####[facility] [address] [place], [place], [address] Magnesium measurementOrdered By: Martin Evans on 02-24-2024 Magnesium measurement 1.6 mg/dL 1.6-2.6 [facility] No Panel InformationOrdered By: Nilda Pino on 02-24-2024 32 U/L 15-37 [facility] No Panel Informationon 02-23 6.2 % 4.2-6.3 [facility] Serum globulin measurementOr dered By: Nilda Pino on 02-24-2024 Serum globulin measurement 3.7 g/dL 2.2-4.2 [facility] Total proteinOrdered By: Clovis Pino on 02-24-2024 Total protein 7.9 g/dL 6.4-8.2 [facility] Triglycerides measurementOrd ered By: Nilda Pino on 02-24-2024 Triglycerides measurement 99 mg/dL <199 [facility] Very low density lipoprotein (VLDL) cholesterol measurementOrdered By: Nilda Pino on 02-24-2024 Very low density lipoprotein (VLDL) cholesterol measurement 20 mg/dL 5-40 [facility] 12 Lead EKGon 02-16-2024 12 Lead EKG [facility] [address] [place] [address] 12 Lead EKG 02/16/24 0820 MR#: [id number] Acct: [id number] Name: TANVI GARZA Rep #: [id number] : 1960 63 From: Stewart Diane MD Attending Dr: Status: DEP ER Ordering Dr: Alfonzo Rahman DO Date: 02/16/24 Location: ED Sex: F C Admitted: Test Reason : SOB Blood Pressure : */* mmHG Vent. Rate : 70 BPM Atrial Rate : 70 BPM P-R Int : 130 ms QRS Dur : 112 ms QT Int : 416 ms P-R-T Axes : 79 -82 79 degrees QTcB Int : 449 ms Atrial-sensed ventricular-paced rhythm Biventricular pacemaker detected Abnormal ECG Confirmed by BENEDICTO LEDESMA, STEWART ([id number]), medical transcription editor SOLITARIO BRAY ([id number]) on 02/17/2024 12:39:35 PM Referred By: Confirmed By: STEWART DIANE MD 02/17/24 1239 Date Stewart Diane MD CC: Dr. Martin Evans MD; Dr. Alfonzo Rahman DO Signed Normal [facility] Absolute neutrophil countOrd ered By: Alfonzo Rahman on 02-16-2024 Absolute neutrophil count 6.9 X10^3/uL 2.0-7.7 [facility] BNP (brain natriuretic pepti de measurement)Ordered By: Alfonzo Rahman on 02-16-2024 BNP (brain natriuretic peptide measurement) 60.9 pg/mL 0-100 [facility] BNP,B-Type NATRIURETIC PEPTI Deondre 02-16-2024 Natriuretic peptide B (Bld) [Mass/Vol] 60.9 pg/mL Normal 0-100 [facility] Comment on above: Performed By: #### L 500.2500, L100.0100, L503.6620, L501.4020 ####[facility] [address] [place], [address] Basic Metabolic Profile (BMP )on 02-16-2024 BUN/CRE 14.0 RATIO Normal 10-20 [facility] Comment on above: Order Comment: 'TROP ' Serial specimen #1, #2 or #3: 1 Performed By: #### L 500.2500, L100.0100, L503.6620, L501.4020 ####[facility] [address] [place], [address] CA,Total 10.1 mg/dL Normal 8.5-10.1 [facility] Comment on above: Order Comment: 'TROP ' Serial specimen #1, #2 or #3: 1 Performed By: #### L 500.2500, L100.0100, L503.6620, L501.4020 ####[facility] [address] [place], [address] Chloride [Moles/Vol] 99 mmol/L Normal 98-107 [facility] Comment on above: Order Comment: 'TROP ' Serial specimen #1, #2 or #3: 1 Performed By: #### L 500.2500, L100.0100, L503.6620, L501.4020 ####[facility] [address] [place], [address] CO2 [Moles/Vol] 32.0 mmol/L Normal 21.0-32.0 [facility] Comment on above: Order Comment: 'TROP ' Serial specimen #1, #2 or #3: 1 Performed By: #### L 500.2500, L100.0100, L503.6620, L501.4020 ####[facility] [address] [place], [address] Creatinine [Mass/Vol] 0.93 mg/dL Normal 0.55-1.02 [facility] Comment on above: Order Comment: 'TROP ' Serial specimen #1, #2 or #3: 1 Result Comment: The validity of the calculated GFR GFRAA in patients over 70 years has not been determined. Clinical correlation is essential. Performed By: #### L 500.2500, L100.0100, L503.6620, L501.4020 ####[facility] [address] [place], [address] ECRCL 79.75 ml/min Normal [facility] Comment on above: Order Comment: 'TROP ' Serial specimen #1, #2 or #3: 1 Performed By: #### L 500.2500, L100.0100, L503.6620, L501.4020 ####[facility] [address] [place], [address] EST GFR - AA 79 mL/min Normal >60 [facility] Comment on above: Order Comment: 'TROP ' Serial specimen #1, #2 or #3: 1 Result Comment: Afri can Tristanian GFR Calc Performed By: #### L 500.2500, L100.0100, L503.6620, L501.4020 ####[facility] [address] [place], [address] GAP 4 Low 5-15 [facility] Comment on above: Order Comment: 'TROP ' Serial specimen #1, #2 or #3: 1 Performed By: #### L 500.2500, L100.0100, L503.6620, L501.4020 ####[facility] [address] [place], [address] GFR/1.73 sq M.predicted among non-blacks MDRD (S/P/Bld) [Vol rate/Area] 65 mL/min/{1.73_m2} Normal >60 [facility] Comment on above: Order Comment: 'TROP ' Serial specimen #1, #2 or #3: 1 Result Comment: Non- GFR Calc Performed By: #### L 500.2500, L100.0100, L503.6620, L501.4020 ####[facility] [address] [place], [address] Glucose [Mass/Vol] 136 mg/dL High 74-106 [facility] Comment on above: Order Comment: 'TROP ' Serial specimen #1, #2 or #3: 1 Result Comment: Fast ing Glucose result greater than or equal to 126 mg/dL suggests DIABETES MELLITUS per A.D.A. criteria. Performed By: #### L 500.2500, L100.0100, L503.6620, L501.4020 ####[facility] [address] [place], [address] Potassium [Moles/Vol] 4.1 mmol/L Normal 3.5-5.1 [facility] Comment on above: Order Comment: 'TROP ' Serial specimen #1, #2 or #3: 1 Performed By: #### L 500.2500, L100.0100, L503.6620, L501.4020 ####[facility] [address] [place], [address] Sodium [Moles/Vol] 134 mmol/L Low 136-145 [facility] Comment on above: Order Comment: 'TROP ' Serial specimen #1, #2 or #3: 1 Performed By: #### L 500.2500, L100.0100, L503.6620, L501.4020 ####[facility] [address] [place], [address] Urea nitrogen [Mass/Vol] 13 mg/dL Normal 7-18 [facility] Comment on above: Order Comment: 'TROP ' Serial specimen #1, #2 or #3: 1 Performed By: #### L 500.2500, L100.0100, L503.6620, L501.4020 ####[facility] [address] [place], [address] Basophil percentageOrdered B y: Alfonzo Rahman on 02-16-2024 Basophil percentage 0.5 % 0-[address] [facility] Blood urea nitrogen (BUN)/cr eatinine ratioOrdered By: Alfonzo Rahman on 02-16-2024 Blood urea nitrogen (BUN)/creatinine ratio 14.0 RATIO - [facility] CBC W/Diff, Automatedon 02-06-2023 Absolute Lymph 1.27 X10 3/uL Normal 0.83-4.51 [facility] Comment on above: Performed By: #### L 500.2500, L100.0100, L503.6620, L501.4020 ####[facility] [address] [place], [address] Absolute Neut 6.9 X10 3/uL Normal 2.0-7.7 [facility] Comment on above: Performed By: #### L 500.2500, L100.0100, L503.6620, L501.4020 ####[facility] [address] [place], [address] Basophils/100 WBC (Bld) 0.5 % Normal 0-1 [facility] Comment on above: Performed By: #### L 500.2500, L100.0100, L503.6620, L501.4020 ####[facility] [address] [place], [address] Eosinophils/100 WBC (Bld) 3.0 % Normal 0-5 [facility] Comment on above: Performed By: #### L 500.2500, L100.0100, L503.6620, L501.4020 ####[facility] [address] [place], [address] Erythrocyte distribution width (RBC) [Ratio] 12.1 % Normal 11.6-14.6 [facility] Comment on above: Performed By: #### L 500.2500, L100.0100, L503.6620, L501.4020 ####[facility] [address] [place], [address] Hematocrit (Bld) [Volume fraction] 40.8 % Normal 37-47 [facility] Comment on above: Performed By: #### L 500.2500, L100.0100, L503.6620, L501.4020 ####[facility] [address] [place], [address] Hemoglobin (Bld) [Mass/Vol] 13.9 g/dL Normal 12.0-15.0 [facility] Comment on above: Performed By: #### L 500.2500, L100.0100, L503.6620, L501.4020 ####[facility] [address] [place], [address] IG% 0.500 Normal 0.0-0.9 [facility] Comment on above: Result Comment: IG% - Immature Granulocytes (promyelocytes, myelocytes and metamyelocytes) > 1% indicates that a LEFT SHIFT is Present. Performed By: #### L 500.2500, L100.0100, L503.6620, L501.4020 ####[facility] [address] [place], [address] Lymphocytes/100 WBC (Bld) 13.8 % Low 19-41 [facility] Comment on above: Performed By: #### L 500.2500, L100.0100, L503.6620, L501.4020 ####[facility] [address] [place], [address] MCH (RBC) [Entitic mass] 32.1 pg High 27.0-32.0 [facility] Comment on above: Performed By: #### L 500.2500, L100.0100, L503.6620, L501.4020 ####[facility] [address] [place], [address] MCHC (RBC) [Mass/Vol] 34.1 g/dL Normal 32-36 [facility] Comment on above: Performed By: #### L 500.2500, L100.0100, L503.6620, L501.4020 ####[facility] [address] [place], [address] MCV (RBC) [Entitic vol] 94.2 fL Normal 81-99 [facility] Comment on above: Performed By: #### L 500.2500, L100.0100, L503.6620, L501.4020 ####[facility] [address] [place], [address] Monocytes/100 WBC (Bld) 7.9 % Normal 0-10 [facility] Comment on above: Performed By: #### L 500.2500, L100.0100, L503.6620, L501.4020 ####[facility] [address] [place], [address] Neutrophils/100 WBC (Bld) 74.3 % High 47-70 [facility] Comment on above: Performed By: #### L 500.2500, L100.0100, L503.6620, L501.4020 ####[facility] [address] [place], [address] Nucleated RBC (Bld) [#/Vol] 0 10*3/uL Normal 0-5 [facility] Comment on above: Performed By: #### L 500.2500, L100.0100, L503.6620, L501.4020 ####[facility] [address] [place], [address] Platelet mean volume (Bld) [Entitic vol] 11.0 fL Normal 6.2-12.0 [facility] Comment on above: Performed By: #### L 500.2500, L100.0100, L503.6620, L501.4020 ####[facility] [address] [place], [address] Platelets (Bld) [#/Vol] 168 10*3/uL Normal 150-450 [facility] Comment on above: Performed By: #### L 500.2500, L100.0100, L503.6620, L501.4020 ####[facility] [address] [place], [address] RBC (Bld) [#/Vol] 4.33 10*6/uL Normal 4.2-5.[address] [facility] Comment on above: Performed By: #### L 500.2500, L100.0100, L503.6620, L501.4020 ####[facility] [address] [place], [address] RDW SD 41.8 fl Normal 35.1-43.9 [facility] Comment on above: Performed By: #### L 500.2500, L100.0100, L503.6620, L501.4020 ####[facility] [address] [place], [address] WBC (Bld) [#/Vol] 9.2 10*3/uL Normal 4.4-11.0 [facility] Comment on above: Performed By: #### L 500.2500, L100.0100, L503.6620, L501.4020 ####[facility] [address] [place], [address] Calcium [Mass/Vol]Ordered By : Alfonzo Rahman on 02-16-2024 Serum or plasma calcium measurement (mass/volume) 10.1 mg/dL 8.5-10.1 [facility] Carbon dioxide measurementOr dered By: Alfonzo Rahman on 02-16-2024 Carbon dioxide measurement 32.0 mmol/L 21.0-32.0 [facility] Chest PA and Lateralon 02-15 Chest PA and Lateral [facility] Services [address] [place] [address] Chest PA and Lateral MR#: [id number] Acct: [id number] Name: TANVI GARZA Rep #: [id number] : 1960 F 63 From: Lucho reveles MD PCP: Dr. Martin Evans MD Status: REG ER Study: Chest PA and Lateral Date of Exam: 02/16/24 Exam# [id number] Ordering Dr: Alfonzo Rahman DO [id number] STUDY: X-RAY CHEST REASON FOR EXAM: Female, 63 years old. Shortness of breath. Productive cough. TECHNIQUE: PA and lateral views of the chest. COMPARISON: Comparison is made with prior study dated January 21, 2022. FINDINGS: There is hyperinflation of the lungs consistent with chronic obstructive lung disease (COPD). There is no demonstrated pleural abnormality. Normal size heart. A left-sided dual-chamber pacemaker is seen. Normal mediastinum and lele. Normal visualized pulmonary arteries. Normal visualized aortic arch and descending thoracic aorta. Normal visualized thoracic spine. Normal visualized ribs, clavicles, and shoulders. There is no demonstrated abnormality of the visualized soft tissue structures of the upper abdomen. RAD/Chest PA and Lateral IMPRESSION: Hyperinflation. The lungs are clear. Electronically Signed: Lucho Gardiner MD at 8:59 EST , CC: Dr. Martin Evans MD; Dr. Alfonzo Rahman DO Disassembler Product: Signed Normal [facility] Chloride measurementOrdered By: Alfonzo Rahman on 02-16-2024 Chloride measurement 99 mmol/L 98-107 [facility] Creatinine [Mass/Vol]Ordered By: Alfonzo Rahman on 02-16-2024 Serum or plasma creatinine measurement (mass/volume) 0.93 mg/dL 0.55-1.02 [facility] Emergency Department Summary on 02-16-2024 Emergency Department Summary [facility] Medical Records Department [address] [place] [address] Emergency Department Summary 02/16/24 MR#: [id number] Acct: [id number] Name: TANVI GARZA Rep #: [id number] : 1960 63 From: Alfonzo Rahman DO PCP: Dr. Martin Evans MD Status:REG ER Location: ED HPI History of Present Illness Chief Complaint: Shortness of Breath Narrative Narrative: Patient is a 63-year-old female with past medical history of ICD, COPD, type 2 diabetes, heart failure, GERD, anxiety, depression who presents to the emergency department the chief complaint shortness of breath. Patient states that starting yesterday she had difficulty breathing that progressively worsened and today. States that she developed a cough that is noted to have clear sputum. States that her friend told her that bronchitis is going around therefore she was concerned and came here today for further evaluation management. Patient states that her last albuterol was at 4:00 in the morning. Patient notes that she had difficulty sleeping secondary to her breathing. Patient states that later this month she is supposed to go to [place] to follow-up with physician to have her lead of her AICD replaced as well as the battery. [facility] Medical History ICD (implantable cardioverter-defibril lator) battery depletion Malfunction of implantable defibrillator ventricular (ICD) lead Shortness of breath Hypercalcemia Vertigo Chronic diarrhea Weight loss, non-intentional Health care maintenance Hyperlipidemia Nonischemic cardiomyopathy Non-rheumatic tricuspid valve insufficiency Chronic systolic (congestive) heart failure Type 2 diabetes mellitus Chronic sinusitis Vitamin D deficiency Essential (primary) hypertension Hypomagnesemia Sinusitis Electrolyte abnormality Alcoholic cardiomyopathy Dizziness and giddiness Family history of CVA Family history of hyperlipidemia Family history of hypertension COPD (chronic obstructive pulmonary disease) GERD (gastroesophageal reflux disease) Depression with anxiety Cancer of vulva Nicotine dependence in remission Home Medications ???Medication ???Instructions ???Recorded ???Last Taken ???Type cholecalciferol (vitamin D3) 50 50 mcg PO DAILY 01/15/21 Unknown History mcg (2,000 unit) capsule nebulizer accessories #1 ea 07/05/21 Unknown Rx potassium chloride 20 mEq 20 meq PO BID #180 tabs 02/11/23 Unknown Rx tablet,extended release(part/cryst) simvastatin 20 mg tablet 20 mg PO QHS #90 tabs 05/21/23 Unknown Rx estradiol 0.5 mg tablet 0.5 mg PO DAILY #90 tabs 05/22/23 Unknown Rx furosemide 40 mg tablet 40 mg PO DAILY #90 tabs 08/18/23 Unknown Rx losartan 25 mg tablet 25 mg PO DAILY #90 tabs 08/18/23 Unknown Rx omeprazole 20 mg capsule,delayed 20 mg PO QDAY #90 caps 10/28/23 Unknown Rx release magnesium oxide 400 mg (241.3 mg 400 mg PO TID 01/27/24 Unknown History magnesium) tablet lorazepam 2 mg tablet 1 mg (1/2 x 2 mg) PO DAILY anxiety 01/28/24 Unknown Rx 1 month #15 tabs albuterol sulfate 2.5 mg/3 mL 2.5 mg (3 mL) inhalation Q4H PRN 01/29/24 Unknown Rx (0.083 %) solution for nebulization shortness of breath or wheezing #90 mL carvedilol 12.5 mg tablet 12.5 mg PO BID this is a dose 02/03/24 Unknown Rx increase #180 tabs prednisone 50 mg tablet 50 mg PO DAILY 5 days #5 tabs 02/16/24 Unknown Rx Allergy/AdvReac Type Severity Reaction Status Date / Time cholecalciferol (vitamin D3) Allergy Severe Rash Verified 02/16/24 07:56 chlorhexidine (From Karena-Hex) Allergy Intermediate Rash Verified 02/16/24 07:56 acetaminophen (From Tylenol) Allergy Hives Verified 02/16/24 07:56 amoxicillin (Amoxicillin) Allergy Hives Verified 02/16/24 07:56 amoxicillin trihydrate (From Allergy Hives Verified 02/16/24 07:56 Trimox) codeine Allergy Hives Verified 02/16/24 07:56 diazepam Allergy Hives Verified 02/16/24 07:56 methocarbamol Allergy Rash Verified 02/16/24 07:56 nabumetone Allergy Rash Verified 02/16/24 07:56 Penicillins Allergy Hives Verified 02/16/24 07:56 ranitidine HCl (From Zantac) Allergy Hives Verified 02/16/24 07:56 ropinirole Allergy Rash Verified 02/16/24 07:56 lisinopril AdvReac Intermediate Dry Verified 02/16/24 07:56 hacking cough celecoxib (From Celebrex) AdvReac Nausea/Vom/ Verified 02/16/24 07:56 Diarrhea ciprofloxacin AdvReac Itching Verified 02/16/24 07:56 citalopram hydrobromide AdvReac Other Verified 02/16/24 07:56 (From Celexa) cyclobenzaprine HCl (From AdvReac Nausea Verified 02/16/24 07:56 Flexeril) doxycycline AdvReac Other Verified 02/16/24 07:56 hydrocodone bitartrate (From AdvReac Nausea Verified 02/16/24 07:56 Vicodin) meloxicam AdvReac Other Verified 02/16/24 07:56 naproxen (From (more content not included)... Normal [facility] Eosinophil percentageOrdered By: Alfonzo Rahman on 02-16-2024 Eosinophil percentage 3.0 % 0-5 [facility] Erythrocyte distribution wid th (RBC) [Ratio]Ordered By: Alfonzo Rahman on 02-16-2024 Erythrocyte distribution width ratio 12.1 % 11.6-14.6 [facility] Erythrocyte distribution width standard deviation 41.8 fl 35.1-43.9 [facility] Estimated glomerular filtrat ion rate (GFR) AmericanOrdered By: Alfonzo Rahman on 02-16-2024 Estimated glomerular filtration rate (GFR) 79 mL/min >60 [facility] Estimation of creatinine rahseed aranceOrdered By: Alfonzo Rahman on 02-16-2024 Estimation of creatinine clearance 79.75 ml/min [facility] Glomerular filtration rate ( GFR) estimationOrdered By: Alfonzo Rahman on 02-16-2024 Glomerular filtration rate (GFR) estimation 65 mL/min >60 [facility] Glucose measurementOrdered B y: Alfonzo Rahman on 02-16-2024 Glucose measurement 136 mg/dL High 74-[address] [facility] Hematocrit Auto (Bld) [Volum e fraction]Ordered By: Alfonzo Rahman on 02-16-2024 Automated blood hematocrit (percentage) 40.8 % 37-47 [facility] Hemoglobin measurementOrdere d By: Alfonzo Rahman on 02-16-2024 Hemoglobin measurement 13.9 g/dL 12.0-15.0 [facility] Immature granulocytes/100 WB C Auto (Bld)Ordered By: Alfonzo Rahman on 02-16-2024 Automated immature granulocyte percentage 0.500 % 0.0-0.9 [facility] L501.4020on 02-16-2024 TROPONIN-I HS 8 pg/mL Normal 3.0-54.0 [facility] Comment on above: Order Comment: 'TROP ' Serial specimen #1, #2 or #3: 1 Result Comment: Plea se Note: New Test Units and Gender Specific Reference Ranges. For more information see Policy Stat Procedure [place] High Sensitivity Troponin (TNIH) and attachments. Performed By: #### L 500.2500, L100.0100, L503.6620, L501.4020 ####[facility] [address] [place], [place], [address] Lymphocytes Auto (Unsp spec) [#/Vol]Ordered By: Alfonzo Rahman on 02-16-2024 Absolute lymphocyte count 1.27 X10^3/uL 0.83-4.51 [facility] Lymphocytes/100 WBC Auto (Un sp spec)Ordered By: Alfonzo Rahman on 02-16-2024 Automated lymphocyte count as percentage of total leukocytes 13.8 % Low 19-41 [facility] MCV (RBC) [Entitic vol]Order ed By: Alfonzo Rahman on 02-16-2024 MCV (mean corpuscular volume) determination 94.2 fL 81-99 [facility] Mean corpuscular hemoglobin (MCH) determinationOrdered By: Alfonzo Rahman on 02-16-2024 Mean corpuscular hemoglobin (MCH) determination 32.1 pg High 27.0-32.0 [facility] Mean corpuscular hemoglobin concentration (MCHC) determinationOrdered By: Alfonzo Rahman on 02-16-2024 Mean corpuscular hemoglobin concentration (MCHC) determination 34.1 g/dL 32-36 [facility] Mean platelet volume determi nationOrdered By: Alfonzo Rahman on 02-16-2024 Mean platelet volume determination 11.0 fl 6.2-12.0 [facility] Monocyte percentageOrdered B y: Alfonzo Rahman on 02-16-2024 Monocyte percentage 7.9 % 0-[address] [facility] Neutrophil percentageOrdered By: Alfonzo Rahman on 02-16-2024 Neutrophil percentage 74.3 % High 47-70 [facility] Nucleated red blood cell per centageOrdered By: Alfonzo Rahman on 02-16-2024 Nucleated red blood cell percentage 0 % 0-5 [facility] Platelet countOrdered By: Mg Rahman on 02-16-2024 Platelet count 168 K/mm3 150-450 [facility] Potassium measurementOrdered By: Alfonzo Rahman on 02-16-2024 Potassium measurement 4.1 mmol/L 3.5-5.1 [facility] RBC Auto (Bld) [#/Vol]Ordere d By: Alfonzo Rahman on 02-16-2024 Automated blood erythrocyte count 4.33 M/mm3 4.2-5.4 [facility] Serum anion gap measurementO rdered By: Alfonzo Rahman on 02-16-2024 Serum anion gap measurement 4 Low 5-15 [facility] Sodium levelOrdered By: Sheila Rahman on 02-16-2024 Sodium level 134 mmol/L Low 136-145 [facility] Troponin IOrdered By: Alfonzo Rahman on 02-16-2024 Troponin I 8 pg/mL 3.0-54.0 [facility] Urea nitrogen [Mass/Vol]Orde red By: Alfonzo Rahman on 02-16-2024 Serum or plasma urea nitrogen measurement (mass/volume) 13 mg/dL 7-18 [facility] White blood cell (WBC) count Ordered By: Alfonzo Rahman on 02-16-2024 White blood cell (WBC) count 9.2 K/mm3 4.4-11.0 [facility] Cardiology Visit Reporton Cardiology Visit Report [facility] [facility] [place], [place] [address] OFFICE VISIT Date of Service: 01/27/24 MR#: [id number] Acct: [id number] Name: TANVI GARZA Rep #: [id number] : 1960 Provider: CELINE roy Age/Sex: 63/F [place] [facility] Status: Signed with Addenda ADDENDUM by CELINE Gooden on 02/03/24 at 1125 Addendum Addendum Details:: Of noted concern is that her LV lead from 2008 takes high output to work and shows intermittent noncapture and is believed to be the cause of her reduced EF from 45% to 25%. Given that she is symptomatic with increase shortness of breath with exertion and easily fatigues with activity, it is felt that lead revision is most beneficial to improve her symptoms and quality of life. 02/03/24 1125 Date Rudolph Gooden NP cc: Dr. Martin Evans MD * Signed HPI HPI History of Present Illness Details: TANVI GARZA, is a 63 F who presents to the office today for a follow-up visit. She has a history of hypertension, nonischemic cardiomyopathy, status post biventricular ICD placement, and tobacco abuse. She denies chest, arm, jaw, or neck discomfort. She denies palpitations. She denies bilateral lower extremity edema. She denies claudication. She states shortness of breath with activity. She denies shortness of breath at rest, orthopnea, or PND. She denies chronic cough. She denies significant, sudden weight gain. She denies lightheadedness, dizziness, near-syncope, or syncope. She denies blood in urine, blood in stool, or epistaxis. He denies fever with chills. She denies myalgia. She denies states s fatigue. Her exercise level is reduced. 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: No Is patient in pain?: No Allergies cholecalciferol (vitamin D3) Allergy (Severe, Verified 01/27/24 09:13) Rash chlorhexidine (From Karena-Hex) Allergy (Intermediate, Verified 01/27/24 09:13) Rash acetaminophen (From Tylenol) Allergy (Verified 01/27/24 09:13) Hives amoxicillin (Amoxicillin) Allergy (Verified 01/27/24 09:13) Hives amoxicillin trihydrate (From Trimox) Allergy (Verified 01/27/24 09:13) Hives codeine Allergy (Verified 01/27/24 09:13) Hives diazepam Allergy (Verified 01/27/24 09:13) Hives methocarbamol Allergy (Verified 01/27/24 09:13) Rash nabumetone Allergy (Verified 01/27/24 09:13) Rash Penicillins Allergy (Verified 01/27/24 09:13) Hives ranitidine HCl (From Zantac) Allergy (Verified 01/27/24 09:13) Hives ropinirole Allergy (Verified 01/27/24 09:13) Rash lisinopril Adverse Reaction (Intermediate, Verified 01/27/24 09:13) Dry hacking cough celecoxib (From Celebrex) Adverse Reaction (Verified 01/27/24 09:13) Nausea/Vom/Diarrhea ciprofloxacin Adverse Reaction (Verified 01/27/24 09:13) Itching citalopram hydrobromide (From Celexa) Adverse Reaction (Verified 01/27/24 09:13) Other cyclobenzaprine HCl (From Flexeril) Adverse Reaction (Verified 01/27/24 09:13) Nausea doxycycline Adverse Reaction (Verified 01/27/24 09:13) Other hydrocodone bitartrate (From Vicodin) Adverse Reaction (Verified 01/27/24 09:13) Nausea meloxicam Adverse Reaction (Verified 01/27/24 09:13) Other naproxen (From Naprosyn) Adverse Reaction (Verified 01/27/24 09:13) Nausea omeprazole Adverse Reaction (Verified 01/27/24 09:13) Nausea pramipexole Adverse Reaction (Verified 01/27/24 09:13) Other Medications ???Medication ???Instructions ???Recorded ???Confirmed ???Type cholecalciferol (vitamin D3) 50 50 mcg PO DAILY 01/15/21 01/27/24 History mcg (2,000 unit) capsule nebulizer accessories #1 ea 07/05/21 11/16/23 Rx potassium chloride 20 mEq 20 meq PO BID #180 tabs 02/11/23 01/27/24 Rx tablet,extended release(part/cryst) simvastatin 20 mg tablet 20 mg PO QHS #90 tabs 05/21/23 01/27/24 Rx estradiol 0.5 mg tablet 0.5 mg PO DAILY #90 tabs 05/22/23 01/27/24 Rx furosemide 40 mg tablet 40 mg PO DAILY #90 tabs 08/18/23 01/27/24 Rx losartan 25 mg tablet 25 mg PO DAILY #90 tabs 08/18/23 01/27/24 Rx omeprazole 20 mg capsule,delayed 20 mg PO QDAY #90 caps 10/28/23 01/27/24 Rx release lorazepam 2 mg tablet 1 mg (1/2 x 2 mg) PO DAILY anxiety 12/29/23 01/27/24 Rx 1 month #15 tabs albuterol sulfate 2.5 mg/3 mL 2.5 mg (3 mL) inhalation Q4H PRN 01/06/24 01/27/24 Rx (0.083 %) solution for nebulization shortness of breath or wheezing #90 mL carvedilol 6.25 mg tablet (Coreg) 12.5 mg (2 x 6.25 mg) PO BID #60 01/27/24 01/27/24 Rx tabs magnesium oxide 400 mg (241.3 mg (more content not included)... Normal [facility] Pacemaker Checkon 01-27-2024 Pacemaker Check [facility] [facility] [address] [place] [address] Pacemaker Check Date of Service: 01/27/24 165 MR#: [id number] Acct: [id number] Name: TANVI GARZA Rep #: [id number] : 1960 From: Aliyah Aguilar Age/Sex: 63/F [place] [facility] [place] Status: Signed Billing Codes ICD Device Billin ICD Dev Prog Eval, Multi Assessment and Plan Assessment and Plan (1) ICD (implantable cardioverter-defibril lator) battery depletion: Status: Acute (2) Malfunction of implantable defibrillator ventricular (ICD) lead: Status: Acute (3) Presence of biventricular implantable cardioverter-defibril lator (ICD): Status: Chronic Comment: 09/19/2008 (4) Chronic systolic (congestive) heart failure: Status: Chronic (5) Nonischemic cardiomyopathy: Status: Chronic Orders: Referrals Electrophysiology I42.8 - Other cardiomyopathies, I50.22 - Chronic systolic (congestive) heart failure, T82.198A - Other mechanical complication of other cardiac electronic device, initial encounter, Z45.02 - Encounter for adjustment and management of automatic implantable cardiac defibrillator, Z95.810 - Presence of automatic (implantable) cardiac defibrillator 01/27/24 1700 Date Aliyah Jose Signature: Date (if applicable) CC: Normal [facility] BNP,B-Type NATRIURETIC PEPTI Deondre 01-12-2024 Natriuretic peptide B (Bld) [Mass/Vol] 39.3 pg/mL Normal 0-100 [facility] Comment on above: Performed By: #### L 500.2500, L503.6620, L501.9520, L100.0100, L501.5200 ####[facility] [address] [place], [address] Basic Metabolic Profile (BMP )on 01-12-2024 BUN/CRE 15.3 RATIO Normal 10-20 [facility] Comment on above: Performed By: #### L 500.2500, L503.6620, L501.9520, L100.0100, L501.5200 ####[facility] [address] [place], [address] CA,Total 9.3 mg/dL Normal 8.5-10.1 [facility] Comment on above: Performed By: #### L 500.2500, L503.6620, L501.9520, L100.0100, L501.5200 ####[facility] [address] [place], [address] Chloride [Moles/Vol] 98 mmol/L Normal 98-107 [facility] Comment on above: Performed By: #### L 500.2500, L503.6620, L501.9520, L100.0100, L501.5200 ####[facility] [address] [place], [address] CO2 [Moles/Vol] 32.0 mmol/L Normal 21.0-32.0 [facility] Comment on above: Performed By: #### L 500.2500, L503.6620, L501.9520, L100.0100, L501.5200 ####[facility] [address] [place], [address] Creatinine [Mass/Vol] 0.98 mg/dL Normal 0.55-1.02 [facility] Comment on above: Result Comment: The validity of the calculated GFR GFRAA in patients over 70 years has not been determined. Clinical correlation is essential. Performed By: #### L 500.2500, L503.6620, L501.9520, L100.0100, L501.5200 ####[facility] [address] [place], [address] EST GFR - AA 74 mL/min Normal >60 [facility] Comment on above: Result Comment: Afri can Tristanian GFR Calc Performed By: #### L 500.2500, L503.6620, L501.9520, L100.0100, L501.5200 ####[facility] [address] [place], [address] GAP 5 Normal 5-15 [facility] Comment on above: Performed By: #### L 500.2500, L503.6620, L501.9520, L100.0100, L501.5200 ####[facility] [address] [place], [address] GFR/1.73 sq M.predicted among non-blacks MDRD (S/P/Bld) [Vol rate/Area] 61 mL/min/{1.73_m2} Normal >60 [facility] Comment on above: Result Comment: Non- GFR Calc Performed By: #### L 500.2500, L503.6620, L501.9520, L100.0100, L501.5200 ####[facility] [address] [place], [address] Glucose [Mass/Vol] 128 mg/dL High 74-106 [facility] Comment on above: Result Comment: Fast ing Glucose result greater than or equal to 126 mg/dL suggests DIABETES MELLITUS per A.D.A. criteria. Performed By: #### L 500.2500, L503.6620, L501.9520, L100.0100, L501.5200 ####[facility] [address] [place], [address] Potassium [Moles/Vol] 3.8 mmol/L Normal 3.5-5.1 [facility] Comment on above: Performed By: #### L 500.2500, L503.6620, L501.9520, L100.0100, L501.5200 ####[facility] [address] [place], [address] Sodium [Moles/Vol] 135 mmol/L Low 136-145 [facility] Comment on above: Performed By: #### L 500.2500, L503.6620, L501.9520, L100.0100, L501.5200 ####[facility] [address] [place], [address] Urea nitrogen [Mass/Vol] 15 mg/dL Normal 7-18 [facility] Comment on above: Performed By: #### L 500.2500, L503.6620, L501.9520, L100.0100, L501.5200 ####[facility] [address] [place], [address] CBC W/Diff, Automatedon 11-0 5-2024 Absolute Lymph 1.70 X10 3/uL Normal 0.83-4.51 [facility] Comment on above: Performed By: #### L 500.2500, L503.6620, L501.9520, L100.0100, L501.5200 ####[facility] [address] [place], [address] Absolute Neut 5.7 X10 3/uL Normal 2.0-7.7 [facility] Comment on above: Performed By: #### L 500.2500, L503.6620, L501.9520, L100.0100, L501.5200 ####[facility] [address] [place], [address] Basophils/100 WBC (Bld) 0.7 % Normal 0-1 [facility] Comment on above: Performed By: #### L 500.2500, L503.6620, L501.9520, L100.0100, L501.5200 ####[facility] [address] [place], [address] Eosinophils/100 WBC (Bld) 3.4 % Normal 0-5 [facility] Comment on above: Performed By: #### L 500.2500, L503.6620, L501.9520, L100.0100, L501.5200 ####[facility] [address] [place], [address] Erythrocyte distribution width (RBC) [Ratio] 12.1 % Normal 11.6-14.6 [facility] Comment on above: Performed By: #### L 500.2500, L503.6620, L501.9520, L100.0100, L501.5200 ####[facility] [address] [place], [address] Hematocrit (Bld) [Volume fraction] 43.8 % Normal 37-47 [facility] Comment on above: Performed By: #### L 500.2500, L503.6620, L501.9520, L100.0100, L501.5200 ####[facility] [address] [place], [address] Hemoglobin (Bld) [Mass/Vol] 14.7 g/dL Normal 12.0-15.0 [facility] Comment on above: Performed By: #### L 500.2500, L503.6620, L501.9520, L100.0100, L501.5200 ####[facility] [address] [place], [address] IG% 0.600 Normal 0.0-0.9 [facility] Comment on above: Result Comment: IG% - Immature Granulocytes (promyelocytes, myelocytes and metamyelocytes) > 1% indicates that a LEFT SHIFT is Present. Performed By: #### L 500.2500, L503.6620, L501.9520, L100.0100, L501.5200 ####[facility] [address] [place], [address] Lymphocytes/100 WBC (Bld) 19.9 % Normal 19-41 [facility] Comment on above: Performed By: #### L 500.2500, L503.6620, L501.9520, L100.0100, L501.5200 ####[facility] [address] [place], [address] MCH (RBC) [Entitic mass] 31.7 pg Normal 27.0-32.0 [facility] Comment on above: Performed By: #### L 500.2500, L503.6620, L501.9520, L100.0100, L501.5200 ####[facility] [address] [place], [address] MCHC (RBC) [Mass/Vol] 33.6 g/dL Normal 32-36 [facility] Comment on above: Performed By: #### L 500.2500, L503.6620, L501.9520, L100.0100, L501.5200 ####[facility] [address] [place], [address] MCV (RBC) [Entitic vol] 94.4 fL Normal 81-99 [facility] Comment on above: Performed By: #### L 500.2500, L503.6620, L501.9520, L100.0100, L501.5200 ####[facility] [address] [place], [address] Monocytes/100 WBC (Bld) 8.4 % Normal 0-10 [facility] Comment on above: Performed By: #### L 500.2500, L503.6620, L501.9520, L100.0100, L501.5200 ####[facility] [address] [place], [address] Neutrophils/100 WBC (Bld) 67.0 % Normal 47-70 [facility] Comment on above: Performed By: #### L 500.2500, L503.6620, L501.9520, L100.0100, L501.5200 ####[facility] [address] [place], [address] Nucleated RBC (Bld) [#/Vol] 0 10*3/uL Normal 0-5 [facility] Comment on above: Performed By: #### L 500.2500, L503.6620, L501.9520, L100.0100, L501.5200 ####[facility] [address] [place], [address] Platelet mean volume (Bld) [Entitic vol] 12.3 fL High 6.2-12.0 [facility] Comment on above: Performed By: #### L 500.2500, L503.6620, L501.9520, L100.0100, L501.5200 ####[facility] [address] [place], [address] Platelets (Bld) [#/Vol] 189 10*3/uL Normal 150-450 [facility] Comment on above: Performed By: #### L 500.2500, L503.6620, L501.9520, L100.0100, L501.5200 ####[facility] [address] [place], [address] RBC (Bld) [#/Vol] 4.64 10*6/uL Normal 4.2-5.[address] [facility] Comment on above: Performed By: #### L 500.2500, L503.6620, L501.9520, L100.0100, L501.5200 ####[facility] [address] [place], [address] RDW SD 42.3 fl Normal 35.1-43.9 [facility] Comment on above: Performed By: #### L 500.2500, L503.6620, L501.9520, L100.0100, L501.5200 ####[facility] [address] [place], [address] WBC (Bld) [#/Vol] 8.5 10*3/uL Normal 4.4-11.0 [facility] Comment on above: Performed By: #### L 500.2500, L503.6620, L501.9520, L100.0100, L501.5200 ####[facility] [address] [place], [address] Magnesiumon 11-05-2024 Magnesium [Mass/Vol] 1.1 mg/dL Low 1.6-2.6 [facility] Comment on above: Performed By: #### L 500.2500, L503.6620, L501.9520, L100.0100, L501.5200 ####[facility] [address] [place], [address] Thyroid Stim Hormone (TSH)on 01-12-2024 TSH 1.340 uIU/mL Normal 0.358-3.740 [facility] Comment on above: Performed By: #### L 500.2500, L503.6620, L501.9520, L100.0100, L501.5200 ####[facility] [address] [facility], [address] Stress Reporton 12-15-[address] [facility] [address] [place] [address] MR#: [id number] Acct: [id number] Name: TANVI GARZA Rep #: [id number] : 1960 63 From: Stewart Diane MD Primary Care: Dr. Martin Evans MD Status: REG CLI Referring Dr: Rudolph Gooden SUPERVISOR FINISHING ROOM SUPERVISOR FINISHING ROOM-C Sex: F C Stress Test Report Pharmacologic myocardial perfusion stress test. 63-year-old lady with a history of dilated cardiomyopathy status post ICD implantation Resting EKG demonstrates sinus rhythm with ventricular pacing with a rate of 73 bpm. Resting blood pressure is 132/82 mmHg. 0.4 mg of regadenoson was infused per usual protocol followed by rapid intravenous saline flush injection. Continuous EKG monitoring was performed. The maximum heart rate was 118 bpm which was 74% of max impacted heart rate the maximum workload was 1 metabolic equivalent. At rest there were no ST or T wave changes noted to suggest ischemia and at peak infusion nonspecific ST changes were noted which did not meet the criteria for ischemia. No clinical angina is noted. The final blood pressure was 118/72 mmHg. Myocardial perfusion protocol. 11.1 mCi of technetium 99m sestamibi was injected at rest. 0.4 mg of regadenoson was infused per usual protocol. At peak infusion 33.8 mCi of technetium 99m sestamibi was injected stress images were obtained stress and rest images were reconstructed and compared in the short axis vertical long and horizontal long axis. Gated images were also obtained. Perfusion SPECT analysis: Review of the stress images demonstrate normal uptake of tracer noted in all areas of the myocardium. The resting images similar demonstrated normal uptake of tracer noted in all areas of the myocardium. No areas of reversibility are noted to suggest ischemia and no previous infarct is noted. A small area of the basal septal wall appeared to have reduced perfusion on the stress and resting images likely from pacemaker activation Gated SPECT analysis: The gated ejection fraction is 63%. Conclusion: Normal pharmacologic myocardial perfusion stress test. Preserved ejection fraction. 12/15/231731 Date Stewart Diane MD CC: CELINE Gooden; Dr. Martin Evans MD Date Dictated: 12/15/231730 Date Transcribed: 12/15/231730 Disassembler Product: CO Signed Normal [facility] Echo Completeon 12-04-2023 Echo Complete [facility] [address] [place] [address] Echo Complete 12/04/23 0514 MR#: [id number] Acct: [id number] Name: TANVI GARZA Rep #: [id number] : 1960 63 From: Stewart iDane MD Attending Dr: Dr. Stewart Diane MD Status: STAN RODRIGUEZ Ordering Dr: Stewart Diane MD Date: 12/04/23 Location: [facility] Sex: F C Admitted: Reason For Study: CMP Procedure This was a 2D Doppler, Color Flow transthoracic echocardiogram. Exam performed in department. Left Ventricle Normal LV size. The left ventricular ejection fraction is 25 %. Stage 2 diastolic dysfunction. There is severe global hypokinesis of the left ventricle. Right Ventricle Normal RV size. ICD or pacer leads identified within the right ventricle. Normal systolic function. Atria Normal left atrium. Normal right atrium. ICD or pacer leads identified within the right atrium. Mitral Valve Normal mitral valve. Mild (1+) eccentric mitral valve insufficiency. Tricuspid Valve Normal tricuspid valve. Aortic Valve Trisinus/trileaflet aortic valve. Pulmonic Valve Normal pulmonic valve. Great Vessels Normal aortic root. The pulmonary artery is normal size. Normal inferior vena cava. Pericardium/Pleural No pericardial effusion. MMode/2D Measurements Calculations LVIDd: 5.2 cm IVSd: 0.68 cm LVOT diam: 1.7 cm LVIDs: 4.1 cm LVPWd: 0.80 cm LVOT area: 2.2 cm2 RVDd: 2.5 cm FS: 22.4 % LAV(MOD-bp): 35.3 ml LVAd ap4: 25.8 cm2 SV(MOD-sp4): 30.6 ml LAV(MOD-bp) Indexed: 22.7 ml/m2 LVLd ap4: 7.3 cm LAV(MOD-sp2): 29.0 ml EDV(MOD-sp4): 74.9 ml LAV(MOD-sp4): 36.4 ml EDV(sp4-el): 77.4 ml LVAs ap4: 18.7 cm2 LVLs ap4: 6.5 cm ESV(MOD-sp4): 44.3 ml ESV(sp4-el): 45.7 ml EF(MOD-sp4): 40.9 % EF(sp4-el): 40.9 % SV(sp4-el): 31.7 ml LA A4 area: 14.8 cm2 LA dimension(2D): 2.9 cm RA A4 area: 11.4 cm2 TAPSE: 1.8 cm Time Measurements MV dec time: 0.14 sec Doppler Measurements Calculations MV E max arnaldo: 81.5 cm/sec Lat Peak E' Arnaldo: 7.5 cm/sec Med Peak E' Arnaldo: 4.0 cm/sec MV A max arnaldo: 69.5 cm/sec E/E' lat: 10.9 E/E' med: 20.5 MV E/A: 1.2 MV V2 max: 74.5 cm/sec Ao V2 max: 120.6 cm/sec MV max P.2 mmHg MV dec slope: 590.2 cm/sec2 Ao max P.8 mmHg MV V2 mean: 50.4 cm/sec Ao V2 mean: 83.1 cm/sec MV mean P.1 mmHg Ao mean P.2 mmHg MV V2 VTI: 27.5 cm Ao V2 VTI: 31.2 cm AV (velocity ratio): 0.87 MVA(VTI): 2.1 cm2 LIVAN(I,D): 1.9 cm2 LIVAN(V,D): 1.9 cm2 LV V1 max: 105.5 cm/sec SV(LVOT): 58.6 ml PA V2 max: 73.5 cm/sec LV V1 max P.5 mmHg PA V2 mean: 46.0 cm/sec LV V1 mean P.4 mmHg LV V1 mean: 72.9 cm/sec LV V1 VTI: 27.1 cm ECHO/Echo Complete Interpretation Summary The left ventricular ejection fraction is 25 %. Stage 2 diastolic dysfunction. Normal LV size. Mild (1+) eccentric mitral valve insufficiency. Compared to previous study, the left ventricular systolic function has worsened.. Ordering Physician: Stewart Diane Referring Physician: Stewart Diane Performed By: Lacey Mathias RCS 12/04/23 1156 Date Stewart Diane MD CC: Dr. Stewart Diane MD; Dr. Martin Evans MD Date Dictated: 12/04/23513 Date Transcribed: 12/04/23 115 Disassembler Product: Signed Normal [facility] Pacemaker Checkon 11-18-2023 Pacemaker Check [facility] [address] [place], [place] [address] Pacemaker Check Date of Service: 11/18/231810 MR#: [id number] Acct: [id number] Name: TANVI GARZA Rep #: [id number] : 1960 From: Aliyah Aguilar Age/Sex: 62/F [place] [facility] [place] Status: Signed Billing Codes ICD Device Billin ICD Dev Prog Eval, Multi Assessment and Plan Assessment and Plan (1) Nonischemic cardiomyopathy: Status: Chronic (2) Presence of biventricular implantable cardioverter-defibril lator (ICD): Status: Chronic Comment: 09/19/2008 (3) Chronic systolic (congestive) heart failure: Status: Chronic 11/18/23 1815 Date Aliyah Jose Signature: Date (if applicable) CC: Normal [facility] Comprehensive Metabolic Prof ilon 11-16-2023 Albumin [Mass/Vol] 4.4 g/dL Normal 3.2-5.0 [facility] Comment on above: Performed By: #### L 500.4050 #### [facility] [address] [place], [address] Albumin/Globulin [Mass ratio] 1.0 {ratio} Normal 0.9-2.4 [facility] Comment on above: Performed By: #### L 500.4050 #### [facility] [address] [place], [address] ALK P 159 U/L High 45-117 [facility] Comment on above: Performed By: #### L 500.4050 #### [facility] [address] [place], [address] ALT [Catalytic activity/Vol] 44 U/L Normal 13-56 [facility] Comment on above: Performed By: #### L 500.4050 #### [facility] [address] [place], [address] AST [Catalytic activity/Vol] 44 U/L High 15-37 [facility] Comment on above: Performed By: #### L 500.4050 #### [facility] [address] [place], [address] Bilirubin [Mass/Vol] 1.20 mg/dL High 0.20-1.00 [facility] Comment on above: Result Comment: For patients on eltrombopag therapy, use of Dimension [place] TBIL is not recommended. Performed By: #### L 500.4050 #### [facility] [address] [place], [address] BUN/CRE 21.6 RATIO High 10-20 [facility] Comment on above: Performed By: #### L 500.4050 #### [facility] [address] [place], [address] CA,Total 10.3 mg/dL High 8.5-10.1 [facility] Comment on above: Performed By: #### L 500.4050 #### [facility] [address] [place], [address] Chloride [Moles/Vol] 97 mmol/L Low 98-107 [facility] Comment on above: Performed By: #### L 500.4050 #### [facility] [address] [place], [address] CO2 [Moles/Vol] 32.0 mmol/L Normal 21.0-32.0 [facility] Comment on above: Performed By: #### L 500.4050 #### [facility] [address] [place], [address] Creatinine [Mass/Vol] 0.93 mg/dL Normal 0.55-1.02 [facility] Comment on above: Result Comment: The validity of the calculated GFR GFRAA in patients over 70 years has not been determined. Clinical correlation is essential. Performed By: #### L 500.4050 #### [facility] [address] [place], [address] EST GFR - AA 79 mL/min Normal >60 [facility] Comment on above: Result Comment: Afri can Tristanian GFR Calc Performed By: #### L 500.4050 #### [facility] [address] [place], [address] GAP 6 Normal 5-15 [facility] Comment on above: Performed By: #### L 500.4050 #### [facility] [address] [place], [address] GFR/1.73 sq M.predicted among non-blacks MDRD (S/P/Bld) [Vol rate/Area] 65 mL/min/{1.73_m2} Normal >60 [facility] Comment on above: Result Comment: Non- GFR Calc Performed By: #### L 500.4050 #### [facility] [address] [place], [address] Globulin (S) [Mass/Vol] 4.5 g/dL High 2.2-4.2 [facility] Comment on above: Performed By: #### L 500.4050 #### [facility] [address] [place], [address] Glucose [Mass/Vol] 124 mg/dL High 74-106 [facility] Comment on above: Result Comment: Fast ing Glucose result from 100 to 125 mg/dL suggests IMPAIRED HOMEOSTASIS per A.D.A. criteria. Performed By: #### L 500.4050 #### [facility] [address] [place], [address] Potassium [Moles/Vol] 4.3 mmol/L Normal 3.5-5.1 [facility] Comment on above: Performed By: #### L 500.4050 #### [facility] [address] [place], [address] Sodium [Moles/Vol] 135 mmol/L Low 136-145 [facility] Comment on above: Performed By: #### L 500.4050 #### [facility] [address] [place], [address] T PROT 8.9 g/dL High 6.4-8.2 [facility] Comment on above: Performed By: #### L 500.4050 #### [facility] [address] [place], [address] Urea nitrogen [Mass/Vol] 20 mg/dL High 7-18 [facility] Comment on above: Performed By: #### L 500.4050 #### [facility] [address] [place], [address] Internal Medicine Office Vis iton 11-16-2023 Internal Medicine Office Visit [facility] [address] [place] [address] OFFICE VISIT Date of Service: 11/16/23 MR#: [id number] Acct: [id number] Name: TANVI GARZA Jaiden Rep #: [id number] : 1960 Provider: Dr. Martin oreilly MD Age/Sex: 62/F [place] [facility] [place] Status: Signed Intake Vital Signs 08/17/23 08:40 11/16/23 09:22 Height 5 ft 4 in 5 ft 4 in Weight: 118 lb BMI 20.2 BP 124/74 H Blood Pressure Location Lt brachial Position Sitting Respiration 16 Pulse 56 L Pulse Source Monitor Temp 97.2 F L Temp Source Temporal Pulse Oximetry (%) 97 Oxygen Delivery Method room air Intake Visit Reasons: 3 M FU Chief Complaint: 3 M FU Maintenance Plumber Required: No Is patient in pain?: No Allergies cholecalciferol (vitamin D3) Allergy (Severe, Verified 11/16/23 09:16) Rash acetaminophen (From Tylenol) Allergy (Verified 11/16/23 09:16) Hives amoxicillin (Amoxicillin) Allergy (Verified 11/16/23 09:16) Hives amoxicillin trihydrate (From Trimox) Allergy (Verified 11/16/23 09:16) Hives codeine Allergy (Verified 11/16/23 09:16) Hives diazepam Allergy (Verified 11/16/23 09:16) Hives methocarbamol Allergy (Verified 11/16/23 09:16) Rash nabumetone Allergy (Verified 11/16/23 09:16) Rash Penicillins Allergy (Verified 11/16/23 09:16) Hives ranitidine HCl (From Zantac) Allergy (Verified 11/16/23 09:16) Hives ropinirole Allergy (Verified 11/16/23 09:16) Rash lisinopril Adverse Reaction (Intermediate, Verified 11/16/23 09:16) Dry hacking cough celecoxib (From Celebrex) Adverse Reaction (Verified 11/16/23 09:16) Nausea/Vom/Diarrhea ciprofloxacin Adverse Reaction (Verified 11/16/23 09:16) Itching citalopram hydrobromide (From Celexa) Adverse Reaction (Verified 11/16/23 09:16) Other cyclobenzaprine HCl (From Flexeril) Adverse Reaction (Verified 11/16/23 09:16) Nausea doxycycline Adverse Reaction (Verified 11/16/23 09:16) Other hydrocodone bitartrate (From Vicodin) Adverse Reaction (Verified 11/16/23 09:16) Nausea meloxicam Adverse Reaction (Verified 11/16/23 09:16) Other naproxen (From Naprosyn) Adverse Reaction (Verified 11/16/23 09:16) Nausea omeprazole Adverse Reaction (Verified 11/16/23 09:16) Nausea pramipexole Adverse Reaction (Verified 11/16/23 09:16) Other Medications ???Medication ???Instructions ???Recorded ???Confirmed ???Type cholecalciferol (vitamin D3) 50 50 mcg PO DAILY 01/15/21 11/16/23 History mcg (2,000 unit) capsule nebulizer accessories #1 ea 07/05/21 11/16/23 Rx magnesium oxide 400 mg (241.3 mg 400 mg PO BID 07/23/22 11/16/23 History magnesium) tablet metoprolol tartrate 50 mg tablet 50 mg PO BID #180 tabs 02/10/23 11/16/23 Rx potassium chloride 20 mEq 20 meq PO BID #180 tabs 02/11/23 11/16/23 Rx tablet,extended release(part/cryst) simvastatin 20 mg tablet 20 mg PO QHS #90 tabs 05/21/23 11/16/23 Rx estradiol 0.5 mg tablet 0.5 mg PO DAILY #90 tabs 05/22/23 11/16/23 Rx furosemide 40 mg tablet 40 mg PO DAILY #90 tabs 08/18/23 11/16/23 Rx losartan 25 mg tablet 25 mg PO DAILY #90 tabs 08/18/23 11/16/23 Rx calcium carbonate 600 mg PO QDAY #180 tabs 08/27/23 11/16/23 Rx albuterol sulfate 2.5 mg/3 mL 2.5 mg (3 mL) inhalation Q4H PRN 10/28/23 11/16/23 Rx (0.083 %) solution for nebulization shortness of breath or wheezing #90 mL lorazepam 2 mg tablet 1 mg (1/2 x 2 mg) PO DAILY anxiety 10/28/23 11/16/23 Rx 1 month #15 tabs omeprazole 20 mg capsule,delayed 20 mg PO QDAY #90 caps 10/28/23 11/16/23 Rx release Nurse's Note: States only today she has had 3 boughts of loose stools. [facility] Medical History Hypercalcemia Vertigo Chronic diarrhea Weight loss, non-intentional Health care maintenance Hyperlipidemia Nonischemic cardiomyopathy Non-rheumatic tricuspid valve insufficiency Chronic systolic (congestive) heart failure Type 2 diabetes mellitus Chronic sinusitis Vitamin D deficiency Essential (primary) hypertension Hypomagnesemia Sinusitis Electrolyte abnormality Alcoholic cardiomyopathy Dizziness and giddiness Shortness of breath Family history of CVA Family history of hyperlipidemia Family history of hypertension COPD (chronic obstructive pulmonary disease) GERD (gastroesophageal reflux disease) Depression with anxiety Cancer of vulva Nicotine dependence in remission Surgical History H/O vulvectomy ( 11/2021) History of left heart catheterization (12/31/05) Presence of biventricular implantable cardioverter-defibril lator (ICD) (04/2017) H/O: hysterectomy excision of cancer of vulva Hx of cholecystectomy Family History Father CVA (cerebral vasc (more content not included)... Normal [facility] Basic Metabolic Profile (BMP )on 08-17-2023 BUN/CRE 26.0 RATIO High 10-20 [facility] Comment on above: Performed By: #### L 501.5200, L100.0100, L500.2500 ####[facility] [address] [place], [address] CA,Total 10.3 mg/dL High 8.5-10.1 [facility] Comment on above: Performed By: #### L 501.5200, L100.0100, L500.2500 ####[facility] [address] [place], [address] Chloride [Moles/Vol] 102 mmol/L Normal 98-107 [facility] Comment on above: Performed By: #### L 501.5200, L100.0100, L500.2500 ####[facility] [address] [place], [address] CO2 [Moles/Vol] 32.0 mmol/L Normal 21.0-32.0 [facility] Comment on above: Performed By: #### L 501.5200, L100.0100, L500.2500 ####[facility] [address] [place], [address] Creatinine [Mass/Vol] 1.00 mg/dL Normal 0.55-1.02 [facility] Comment on above: Result Comment: The validity of the calculated GFR GFRAA in patients over 70 years has not been determined. Clinical correlation is essential. Performed By: #### L 501.5200, L100.0100, L500.2500 ####[facility] [address] [place], [address] EST GFR - AA 72 mL/min Normal >60 [facility] Comment on above: Result Comment: Afri can Tristanian GFR Calc Performed By: #### L 501.5200, L100.0100, L500.2500 ####[facility] [address] [place], [address] GAP 3 Low 5-15 [facility] Comment on above: Performed By: #### L 501.5200, L100.0100, L500.2500 ####[facility] [address] [place], [address] GFR/1.73 sq M.predicted among non-blacks MDRD (S/P/Bld) [Vol rate/Area] 60 mL/min/{1.73_m2} Normal >60 [facility] Comment on above: Result Comment: Non- GFR Calc Performed By: #### L 501.5200, L100.0100, L500.2500 ####[facility] [address] [place], [address] Glucose [Mass/Vol] 122 mg/dL High 74-106 [facility] Comment on above: Result Comment: Fast ing Glucose result from 100 to 125 mg/dL suggests IMPAIRED HOMEOSTASIS per A.D.A. criteria. Performed By: #### L 501.5200, L100.0100, L500.2500 ####[facility] [address] [place], [address] Potassium [Moles/Vol] 4.2 mmol/L Normal 3.5-5.1 [facility] Comment on above: Performed By: #### L 501.5200, L100.0100, L500.2500 ####[facility] [address] [place], [address] Sodium [Moles/Vol] 137 mmol/L Normal 136-145 [facility] Comment on above: Performed By: #### L 501.5200, L100.0100, L500.2500 ####[facility] [address] [place], [address] Urea nitrogen [Mass/Vol] 26 mg/dL High 7-18 [facility] Comment on above: Performed By: #### L 501.5200, L100.0100, L500.2500 ####[facility] [address] [place], [address] CBC W/Diff, Automatedon 06- 0-2024 Absolute Lymph 2.09 X10 3/uL Normal 0.83-4.51 [facility] Comment on above: Performed By: #### L 501.5200, L100.0100, L500.2500 #### [facility] [address] [place], [address] Absolute Neut 5.4 X10 3/uL Normal 2.0-7.7 [facility] Comment on above: Performed By: #### L 501.5200, L100.0100, L500.2500 #### [facility] [address] [place], [address] Basophils/100 WBC (Bld) 0.9 % Normal 0-1 [facility] Comment on above: Performed By: #### L 501.5200, L100.0100, L500.2500 #### [facility] [address] [place], [address] Eosinophils/100 WBC (Bld) 4.0 % Normal 0-5 [facility] Comment on above: Performed By: #### L 501.5200, L100.0100, L500.2500 #### [facility] [address] [place], [address] Erythrocyte distribution width (RBC) [Ratio] 12.0 % Normal 11.6-14.6 [facility] Comment on above: Performed By: #### L 501.5200, L100.0100, L500.2500 #### [facility] [address] [place], [address] Hematocrit (Bld) [Volume fraction] 45.5 % Normal 37-47 [facility] Comment on above: Performed By: #### L 501.5200, L100.0100, L500.2500 #### [facility] [address] [place], [address] Hemoglobin (Bld) [Mass/Vol] 15.0 g/dL Normal 12.0-15.0 [facility] Comment on above: Performed By: #### L 501.5200, L100.0100, L500.2500 #### [facility] [address] [place], [address] IG% 0.300 Normal 0.0-0.9 [facility] Comment on above: Result Comment: IG% - Immature Granulocytes (promyelocytes, myelocytes and metamyelocytes) > 1% indicates that a LEFT SHIFT is Present. Performed By: #### L 501.5200, L100.0100, L500.2500 #### [facility] [address] [place], [address] Lymphocytes/100 WBC (Bld) 23.8 % Normal 19-41 [facility] Comment on above: Performed By: #### L 501.5200, L100.0100, L500.2500 #### [facility] [address] [place], [address] MCH (RBC) [Entitic mass] 31.4 pg Normal 27.0-32.0 [facility] Comment on above: Performed By: #### L 501.5200, L100.0100, L500.2500 #### [facility] [address] [place], [address] MCHC (RBC) [Mass/Vol] 33.0 g/dL Normal 32-36 [facility] Comment on above: Performed By: #### L 501.5200, L100.0100, L500.2500 #### [facility] [address] [place], [address] MCV (RBC) [Entitic vol] 95.4 fL Normal 81-99 [facility] Comment on above: Performed By: #### L 501.5200, L100.0100, L500.2500 #### [facility] [address] [place], [address] Monocytes/100 WBC (Bld) 9.3 % Normal 0-10 [facility] Comment on above: Performed By: #### L 501.5200, L100.0100, L500.2500 #### [facility] [address] [place], [address] Neutrophils/100 WBC (Bld) 61.7 % Normal 47-70 [facility] Comment on above: Performed By: #### L 501.5200, L100.0100, L500.2500 #### [facility] [address] [place], [address] Nucleated RBC (Bld) [#/Vol] 0 10*3/uL Normal 0-5 [facility] Comment on above: Performed By: #### L 501.5200, L100.0100, L500.2500 #### [facility] [address] [place], [address] Platelet mean volume (Bld) [Entitic vol] 10.8 fL Normal 6.2-12.0 [facility] Comment on above: Performed By: #### L 501.5200, L100.0100, L500.2500 #### [facility] [address] [place], [address] Platelets (Bld) [#/Vol] 193 10*3/uL Normal 150-450 [facility] Comment on above: Performed By: #### L 501.5200, L100.0100, L500.2500 #### [facility] [address] [place], [address] RBC (Bld) [#/Vol] 4.77 10*6/uL Normal 4.2-5.[address] [facility] Comment on above: Performed By: #### L 501.5200, L100.0100, L500.2500 #### [facility] [address] [place], [address] RDW SD 42.0 fl Normal 35.1-43.9 [facility] Comment on above: Performed By: #### L 501.5200, L100.0100, L500.2500 #### [facility] [address] [place], [address] WBC (Bld) [#/Vol] 8.8 10*3/uL Normal 4.4-11.0 [facility] Comment on above: Performed By: #### L 501.5200, L100.0100, L500.2500 #### [facility] [address] [place], [address] Internal Medicine Office Vis [facility] 08-17-2023 Internal Medicine Office Visit [facility] [address] [place] [address] [place] [address] OFFICE VISIT Date of Service: 08/17/23 MR#: [id number] Acct: [id number] Name: TANVI GARZA Jaiden Rep #: [id number] : 1960 Provider: Dr. Martin oreilly MD Age/Sex: 62/F [place] [facility] Status: Signed Intake Vital Signs 05/15/23 09:58 08/10/23 08:11 08/17/23 08:40 Height 5 ft 4 in 5 ft 4 in 5 ft 4 in Weight: 114 lb BMI 19.5 BP 128/76 H Blood Pressure Location Lt brachial Position Sitting Respiration 17 Pulse Source Monitor Intake Visit Reasons: 3 M FU Chief Complaint: 3 M FU Is patient in pain?: No Allergies cholecalciferol (vitamin D3) Allergy (Severe, Verified 08/17/23 08:41) Rash acetaminophen (From Tylenol) Allergy (Verified 08/17/23 08:41) Hives amoxicillin (Amoxicillin) Allergy (Verified 08/17/23 08:41) Hives amoxicillin trihydrate (From Trimox) Allergy (Verified 08/17/23 08:41) Hives codeine Allergy (Verified 08/17/23 08:41) Hives diazepam Allergy (Verified 08/17/23 08:41) Hives methocarbamol Allergy (Verified 08/17/23 08:41) Rash nabumetone Allergy (Verified 08/17/23 08:41) Rash Penicillins Allergy (Verified 08/17/23 08:41) Hives ranitidine HCl (From Zantac) Allergy (Verified 08/17/23 08:41) Hives ropinirole Allergy (Verified 08/17/23 08:41) Rash lisinopril Adverse Reaction (Intermediate, Verified 08/17/23 08:41) Dry hacking cough celecoxib (From Celebrex) Adverse Reaction (Verified 08/17/23 08:41) Nausea/Vom/Diarrhea ciprofloxacin Adverse Reaction (Verified 08/17/23 08:41) Itching citalopram hydrobromide (From Celexa) Adverse Reaction (Verified 08/17/23 08:41) Other cyclobenzaprine HCl (From Flexeril) Adverse Reaction (Verified 08/17/23 08:41) Nausea doxycycline Adverse Reaction (Verified 08/17/23 08:41) Other hydrocodone bitartrate (From Vicodin) Adverse Reaction (Verified 08/17/23 08:41) Nausea meloxicam Adverse Reaction (Verified 08/17/23 08:41) Other naproxen (From Naprosyn) Adverse Reaction (Verified 08/17/23 08:41) Nausea omeprazole Adverse Reaction (Verified 08/17/23 08:41) Nausea pramipexole Adverse Reaction (Verified 08/17/23 08:41) Other Medications ???Medication ???Instructions ???Recorded ???Confirmed ???Type cholecalciferol (vitamin D3) 50 50 mcg PO DAILY 01/15/21 08/17/23 History mcg (2,000 unit) capsule nebulizer accessories #1 ea 07/05/21 08/17/23 Rx losartan 25 mg tablet 25 mg PO DAILY #90 tabs 05/20/22 08/17/23 Rx furosemide 40 mg tablet 40 mg PO DAILY #90 tabs 06/18/22 08/17/23 Rx magnesium oxide 400 mg (241.3 mg 400 mg PO BID 07/23/22 08/17/23 History magnesium) tablet metoprolol tartrate 50 mg tablet 50 mg PO BID #180 tabs 02/10/23 08/17/23 Rx calcium carbonate 600 mg PO BID #180 tabs 02/11/23 08/17/23 Rx omeprazole 20 mg capsule,delayed 20 mg PO QDAY #90 caps 02/11/23 08/17/23 Rx release potassium chloride 20 mEq 20 meq PO BID #180 tabs 02/11/23 08/17/23 Rx tablet,extended release(part/cryst) simvastatin 20 mg tablet 20 mg PO QHS #90 tabs 05/21/23 08/17/23 Rx estradiol 0.5 mg tablet 0.5 mg PO DAILY #90 tabs 05/22/23 08/17/23 Rx albuterol sulfate 2.5 mg/3 mL 2.5 mg (3 mL) inhalation Q4H PRN 07/28/23 08/17/23 Rx (0.083 %) solution for nebulization shortness of breath or wheezing #90 mL lorazepam 2 mg tablet 1 mg (1/2 x 2 mg) PO DAILY anxiety 07/28/23 08/17/23 Rx 1 month #15 tabs PFSH Medical History Hypercalcemia Vertigo Chronic diarrhea Weight loss, non-intentional Health care maintenance Hyperlipidemia Nonischemic cardiomyopathy Non-rheumatic tricuspid valve insufficiency Chronic systolic (congestive) heart failure Type 2 diabetes mellitus Chronic sinusitis Vitamin D deficiency Essential (primary) hypertension Hypomagnesemia Sinusitis Electrolyte abnormality Alcoholic cardiomyopathy Dizziness and giddiness Shortness of breath Family history of CVA Family history of hyperlipidemia Family history of hypertension COPD (chronic obstructive pulmonary disease) GERD (gastroesophageal reflux disease) Depression with anxiety Cancer of vulva Nicotine dependence in remission Surgical History H/O vulvectomy ( 11/2021) History of left heart catheterization (12/31/05) Presence of biventricular implantable cardioverter-defibril lator (ICD) (04/2017) H/O: hysterectomy excision of cancer of vulva Hx of cholecystectomy Family History Father CVA (cerebral vascular accident) Hypertension Diabetes Cancer Mother Diabetes Hypertension Social History Smoking Status: Heavy Smoker (>10/day) alcohol intake: form (more content not included)... Normal [facility] Magnesium[facility] 08-17-2023 Magnesium [Mass/Vol] 1.8 mg/dL Normal 1.6-2.6 [facility] Comment on above: Performed By: #### L 501.5200, L100.0100, L500.2500 ####[facility] [address] [place], [address] Cardiology Visit Reporton Cardiology Visit Report [facility] [address] [place] [address] OFFICE VISIT Date of Service: 08/10/23 MR#: [id number] Acct: [id number] Name: TANVI GARZA Rep #: [id number] : 1960 Provider: CELINE escobar Age/Sex: 62/F [place] [facility] Status: Signed HPI HPI History of Present Illness Details: TANVI GARZA, is a 62 F who presents to the office today for a follow-up visit. She has a history of hypertension, nonischemic cardiomyopathy, status post biventricular ICD placement, and tobacco abuse. From a cardiac standpoint, the patient is doing well. She denies any palpitations, chest pain, pressure or heaviness. She denies SOB, Orthopnea, and PND. She does not have bleeding issues; no blood in urine, stool or nosebleeds. She denies any decrease in energy level, myalgias, or claudication. She does not have edema, or sudden weight gain. She denies dizziness, lightheadedness, syncopal or near syncopal episodes, and headaches. Intake Vital Signs 02/10/23 13:06 05/15/23 09:58 08/10/23 08:11 Height 5 ft 4 in 5 ft 4 in 5 ft 4 in Weight: 114 lb BMI 19.5 BP 124/64 H Blood Pressure Location Rt brachial Position Sitting Respiration 18 Pulse 62 Pulse Source Monitor Pulse Oximetry (%) 96 Intake Visit Reasons: 6 M FU Maintenance Plumber Required: No Is patient in pain?: No Allergies cholecalciferol (vitamin D3) Allergy (Severe, Verified 08/10/23 08:40) Rash acetaminophen (From Tylenol) Allergy (Verified 08/10/23 08:40) Hives amoxicillin (Amoxicillin) Allergy (Verified 08/10/23 08:40) Hives amoxicillin trihydrate (From Trimox) Allergy (Verified 08/10/23 08:40) Hives codeine Allergy (Verified 08/10/23 08:40) Hives diazepam Allergy (Verified 08/10/23 08:40) Hives methocarbamol Allergy (Verified 08/10/23 08:40) Rash nabumetone Allergy (Verified 08/10/23 08:40) Rash Penicillins Allergy (Verified 08/10/23 08:40) Hives ranitidine HCl (From Zantac) Allergy (Verified 08/10/23 08:40) Hives ropinirole Allergy (Verified 08/10/23 08:40) Rash lisinopril Adverse Reaction (Intermediate, Verified 08/10/23 08:40) Dry hacking cough celecoxib (From Celebrex) Adverse Reaction (Verified 08/10/23 08:40) Nausea/Vom/Diarrhea ciprofloxacin Adverse Reaction (Verified 08/10/23 08:40) Itching citalopram hydrobromide (From Celexa) Adverse Reaction (Verified 08/10/23 08:40) Other cyclobenzaprine HCl (From Flexeril) Adverse Reaction (Verified 08/10/23 08:40) Nausea doxycycline Adverse Reaction (Verified 08/10/23 08:40) Other hydrocodone bitartrate (From Vicodin) Adverse Reaction (Verified 08/10/23 08:40) Nausea meloxicam Adverse Reaction (Verified 08/10/23 08:40) Other naproxen (From Naprosyn) Adverse Reaction (Verified 08/10/23 08:40) Nausea omeprazole Adverse Reaction (Verified 08/10/23 08:40) Nausea pramipexole Adverse Reaction (Verified 08/10/23 08:40) Other Medications ???Medication ???Instructions ???Recorded ???Confirmed ???Type cholecalciferol (vitamin D3) 50 50 mcg PO DAILY 01/15/21 08/10/23 History mcg (2,000 unit) capsule nebulizer accessories #1 ea 07/05/21 08/10/23 Rx losartan 25 mg tablet 25 mg PO DAILY #90 tabs 05/20/22 08/10/23 Rx furosemide 40 mg tablet 40 mg PO DAILY #90 tabs 06/18/22 08/10/23 Rx magnesium oxide 400 mg (241.3 mg 400 mg PO BID 07/23/22 08/10/23 History magnesium) tablet metoprolol tartrate 50 mg tablet 50 mg PO BID #180 tabs 02/10/23 08/10/23 Rx calcium carbonate 600 mg PO BID #180 tabs 02/11/23 08/10/23 Rx omeprazole 20 mg capsule,delayed 20 mg PO QDAY #90 caps 02/11/23 08/10/23 Rx release potassium chloride 20 mEq 20 meq PO BID #180 tabs 02/11/23 08/10/23 Rx tablet,extended release(part/cryst) simvastatin 20 mg tablet 20 mg PO QHS #90 tabs 05/21/23 08/10/23 Rx estradiol 0.5 mg tablet 0.5 mg PO DAILY #90 tabs 05/22/23 08/10/23 Rx albuterol sulfate 2.5 mg/3 mL 2.5 mg (3 mL) inhalation Q4H PRN 07/28/23 08/10/23 Rx (0.083 %) solution for nebulization shortness of breath or wheezing #90 mL lorazepam 2 mg tablet 1 mg (1/2 x 2 mg) PO DAILY anxiety 07/28/23 08/10/23 Rx 1 month #15 tabs PFSH Medical History (Reviewed 08/10/23 @ 08:39 by Emma Vargas [employer]PERVIS[employer]ISHING [employer], SUPER[employer]OR [employer]ISH[employer]-C) Hypercalcemia Vertigo Chronic diarrhea Weight loss, non-intentional Health care maintenance Hyperlipidemia Nonischemic cardiomyopathy Non-rheumatic tricuspid valve insufficiency Chronic systolic (congestive) heart failure Type 2 diabetes mellitus Chronic sinusitis Vitamin D deficiency Essential (primary) hypertension Hypomagnesemia Sinusitis Electrolyte abnormality Alcoholic cardiomyopathy Dizziness and giddiness Shortness of breath Family history of CVA Family history of hyperlipidemia Family history of hypertension COPD (chronic obstruc (more content not included)... Normal [facility] Lip[facility] Profile[facility] 08-10-2023 Cholesterol [Mass/Vol] 142 mg/dL Normal 200 [facility] Comment on above: Result Comment: <200 mg/dL Desirable 200-240 mg/dL Borderline >240 mg/dL High Risk Performed By: #### L 500.3400, L500.4100 #### [facility] [address] [place], [address] Cholesterol in HDL [Mass/Vol] 53 mg/dL Normal [facility] Comment on above: Result Comment: The drugs N-Acetylcysteine and Metamizole may falsely depress this assay. Reference Range HDL <40 mg/dL Low HDL Cholesterol HDL >or= 60 mg/dL High HDL Cholesterol Performed By: #### L 500.3400, L500.4100 #### [facility] [address] [place], [address] Cholesterol in LDL [Mass/Vol] 70 mg/dL Normal 0-130 [facility] Comment on above: Performed By: #### L 500.3400, L500.4100 #### [facility] [address] [place], [address] Cholesterol in VLDL [Mass/Vol] 19 mg/dL Normal 5-40 [facility] Comment on above: Performed By: #### L 500.3400, L500.4100 #### [facility] [address] [place], [address] Triglyceride [Mass/Vol] 97 mg/dL Normal [facility] Comment on above: Result Comment: The drugs N-Acetylcysteine and Metamizole may falsely depress this assay. Serum Triglycerides Reference Interval Normal <150 mg/dL Borderline high 150 - 199 mg/dL High 200 - 499 mg/dL Very High > or = 500 mg/dL Performed By: #### L 500.3400, L500.4100 #### [facility] [address] [place], [address] Liver Profileon 08-10-2023 Albumin [Mass/Vol] 4.0 g/dL Normal 3.2-5.0 [facility] Comment on above: Performed By: #### L 500.3400, L500.4100 #### [facility] [address] [place], [address] ALK P 117 U/L Normal 45-117 [facility] Comment on above: Performed By: #### L 500.3400, L500.4100 #### [facility] [address] [place], [address] ALT [Catalytic activity/Vol] 56 U/L Normal 13-56 [facility] Comment on above: Performed By: #### L 500.3400, L500.4100 #### [facility] [address] [place], [address] AST [Catalytic activity/Vol] 56 U/L High 15-37 [facility] Comment on above: Performed By: #### L 500.3400, L500.4100 #### [facility] [address] [place], [address] Bilirubin [Mass/Vol] 1.40 mg/dL High 0.20-1.00 [facility] Comment on above: Result Comment: For patients on eltrombopag therapy, use of Dimension [place] TBIL is not recommended. Performed By: #### L 500.3400, L500.4100 #### [facility] [address] [place], [address] Bilirubin.direct [Mass/Vol] 0.34 mg/dL High 0.00-0.30 [facility] Comment on above: Performed By: #### L 500.3400, L500.4100 #### [facility] [address] [place], [address] Globulin (S) [Mass/Vol] 4.2 g/dL Normal 2.2-4.2 [facility] Comment on above: Performed By: #### L 500.3400, L500.4100 #### [facility] [address] [place], [address] T PROT 8.2 g/dL Normal 6.4-8.2 [facility] Comment on above: Performed By: #### L 500.3400, L500.4100 #### [facility] [address] [place], [address] Pacemaker Checkon 08-10-2023 Pacemaker Check [facility] [place] [facility] [address] [place] [address] Pacemaker Check Date of Service: 08/10/23 1008 MR#: [id number] Acct: [id number] Name: TANVI GARZA Jaiden Rep #: [id number] : 1960 From: Aliyah Aguilar Age/Sex: 62/F [place] [facility] [place]: Signed Billing Codes ICD Device Billing: ICD Dev Prog Eval, Multi Assessment and Plan Assessment and Plan (1) Nonischemic cardiomyopathy: Status: Chronic (2) Presence of biventricular implantable cardioverter-defibril lator (ICD): Status: Chronic Comment: 09/19/2008 (3) Chronic systolic (congestive) heart failure: Status: Chronic 08/10/23 1009 Date Aliyah Jeff Jose Signature: Date (if applicable) CC: Normal [facility] Basophil percentageOrdered B y: Martin Evans on 05-15-2023 Chloride [Moles/Vol] 98 mmol/L 98-107 [facility] Glucose [Mass/Vol] 117 mg/dL 74-106 [facility] Comment on above: Fasting Glucose resu lt from 100 to 125 mg/dL suggests IMPAIRED HOMEOSTASIS per A.D.A. criteria. Potassium [Moles/Vol] 4.1 mmol/L 3.5-5.1 [facility] Sodium [Moles/Vol] 138 mmol/L 136-145 [facility] - Chemistry and C hemistry - challengeOrdered By: Martin Evans on 05-15-2023 CO2 [Moles/Vol] 34.0 mmol/L 21.0-32.0 [facility] Magnesium [Mass/Vol] 1.7 mg/dL 1.6-2.6 [facility] Urea nitrogen/Creatinine [Mass ratio] 16.4 mg/mg 10-20 [facility] - Hematology and Cell countson 05-15-2023 HbA1c (Bld) [Mass fraction] 6.3 % 4.2-6.3 [facility] No Panel InformationOrdered By: Martin Evans on 05-15-2023 Estimated GFR (MDRD) Amer 80 mL/min >60 [facility] Comment on above: GFR Calc Estimated GFR (MDRD) Non-Af Amer 66 mL/min >60 [facility] Comment on above: Non- GFR Calc Parathyroid Hormone (Intact) 35.8 pg/mL 18.4-80.1 [facility] Serum or plasma calcium omero urement (mass/volume)Ordered By: Martin Evans on 05-15-2023 Calcium [Mass/Vol] 10.3 mg/dL 8.5-10.1 [facility] Serum or plasma creatinine m easurement (mass/volume)Ordered By: Martin Evans on 05-15-2023 Creatinine [Mass/Vol] 0.91 mg/dL 0.55-1.02 [facility] Comment on above: The validity of the calculated GFR & GFRAA in patients over 70 years has not been determined. Clinical correlation is essential. Serum or plasma urea nitroge n measurement (mass/volume)Ordered By: Martin Evans on 05-15-2023 Urea nitrogen [Mass/Vol] 15 mg/dL 7-18 [facility] Thin prep Papanicolaou smear with manual screeningOrdered By: Martin Evans on 05-15-2023 Thin prep Papanicolaou smear with manual screening 6 5-15 [facility] Cervical or vaginal specimen microscopic examination by liquid based cytology (reportOrdered By: Joanie Glover on 04-14-2023 Cytology report Cyto stain.thin prep Doc (Cvx/Vag) Comment . [facility] Comment on above: Criteria not met, HP V Genotype not performed.Performed at: [facility] [address] [place], [place] [id number] Director: Suhail Medel MD, Phone: [phone] at: [address] [id number] Director: Kaylene Alicea MD, Phone: [phone] at: =[facility] [id number] Director: Kaylene Alicea MD, Phone: [phone] Cervical or vagninal specime n microscopic examination by cytology stain (reported asOrdered By: Joanie Glover on 04-14-2023 Cytology report Cyto stain Doc (Cvx/Vag) Comment . [facility] Comment on above: The Pap smear is a s creening test designed to aid in thedetection of premalignant and malignant conditions of theuterine cervix. It is not a diagnostic procedure andshould not be used as the sole means of detecting cervicalcancer. Both false-positive and false-negative reports dooccur. Detection in cervical specim en of any of human papilloma virus (HPV) 16, 18, 31, 33,Ordered By: Joanie Glover on 04-14-2023 HPV 16+18+31+33+35+39+45+51 +52+56+58+59+66+68 DNA Probe+sig amp Ql (Cvx) Negative Negative [facility] Comment on above: This nucleic acid am plification test detects fourteen high-risk HPV types (16,18,31,33,35,39,45,51,52,56,58,59,66,68)without differentiation. Laboratory - CytologyOrdered By: Joanie Glover on 04-14-2023 Package Clerk Cyto stain Nom (Cvx/Vag) [ID] Comment . [facility] Comment on above: Ina Thornton chnologist (ASCP) Laboratory - Miscellaneous t estsOrdered By: Joanie Glover on 04-14-2023 Service comment (Unsp spec) [Interp] . . [facility] Thin prep Papanicolaou smear with manual screeningOrdered By: Joanie Glover on 04-14-2023 Thin prep Papanicolaou smear with manual screening Comment . [facility] Comment on above: NEGATIVE FOR INTRAEP ITHELIAL LESION OR MALIGNANCY. This liquid based Th inPrep(R) pap test was screened withthe use of an image guided system. Absolute lymphocyte countOrd ered By: Karendioncamerontyron Cristina on 02-04-2023 Lymphocytes Auto (Unsp spec) [#/Vol] 2.11 10*3/uL 0.83-4.51 [facility] Basophil percentageOrdered B y: Martin Evans on 02-04-2023 Basophils/100 WBC (Bld) 0.9 % 0-1 [facility] Chloride [Moles/Vol] 98 mmol/L 98-107 [facility] Eosinophils/100 WBC (Bld) 4.9 % 0-5 [facility] Glucose [Mass/Vol] 115 mg/dL 74-106 [facility] Comment on above: Fasting Glucose resu lt from 100 to 125 mg/dL suggests IMPAIRED HOMEOSTASIS per A.D.A. criteria. Neutrophils (Bld) [#/Vol] 6.2 10*3/uL 2.0-7.7 [facility] Neutrophils/100 WBC (Bld) 65.5 % 47-70 [facility] Potassium [Moles/Vol] 4.2 mmol/L 3.5-5.1 [facility] Sodium [Moles/Vol] 138 mmol/L 136-145 [facility] WBC (Bld) [#/Vol] 9.5 10*3/uL 4.4-11.0 [facility] Basophil percentageOrdered B y: Whitman Benedicto on 02-04-2023 Bilirubin [Mass/Vol] 1.00 mg/dL 0.20-1.00 [facility] Comment on above: For patients on eltr ombopag therapy, use of Dimension [place] TBIL is not recommended. Cholesterol [Mass/Vol] 135 mg/dL <200 [facility] Comment on above: <200 mg/dL Desirable 200-240 mg/dL Borderline >240 mg/dL High Risk Protein [Mass/Vol] 8.5 g/dL 6.4-8.2 [facility] Triglyceride [Mass/Vol] 90 mg/dL <199 [facility] Comment on above: The drugs N-Acetylcy steine and Metamizole may falsely depress this assay.Serum Triglycerides Reference Interval Normal <150 mg/dL Borderline high 150 - 199 mg/dL High 200 - 499 mg/dL Very High > or = 500 mg/dL Blood erythrocytes count (nu mber/volume)Ordered By: Martin Evans on 02-04-2023 RBC (Bld) [#/Vol] 4.65 10*6/uL 4.2-5.[address] [facility] Blood hemoglobin measurement (mass/volume)Ordered By: Martin Evans on 02-04-2023 Hemoglobin (Bld) [Mass/Vol] 14.7 g/dL 12.0-15.0 [facility] Blood lymphocytes/100 leukoc ytesOrdered By: Martin Evans on 02-04-2023 Lymphocytes/100 WBC (Bld) 22.1 % 19-41 [facility] Blood monocytes/100 leukocyt esOrdered By: Martin Evans on 02-04-2023 Monocytes/100 WBC (Bld) 6.3 % 0-10 [facility] Blood platelet mean volumeOr dered By: Martin Evans on 02-04-2023 Platelet mean volume (Bld) [Entitic vol] 11.9 fL 6.2-12.0 [facility] Determination of erythrocyte mean corpuscular volume (MCV)Ordered By: Martin Evans on 02-04-2023 MCV (RBC) [Entitic vol] 97.4 fL 81-99 [facility] Direct bilirubinOrdered By: Stewart Diane on 02-04-2023 Bilirubin.direct [Mass/Vol] 0.28 mg/dL 0.00-0.30 [facility] Hematocrit Auto (Bld) [Volum e fraction]Ordered By: Martin Evans on 02-04-2023 Hematocrit (Bld) [Volume fraction] 45.3 % 37-47 [facility] - Chemistry and C hemistry - challengeOrdered By: Stewart Diane on 02-04-2023 ALP [Catalytic activity/Vol] 123 U/L 45-117 [facility] ALT [Catalytic activity/Vol] 32 U/L 13-56 [facility] Globulin (S) [Mass/Vol] 4.3 g/dL 2.2-4.2 [facility] Laboratory - Chemistry and C hemistry - challengeOrdered By: Martin Evans on 02-04-2023 CO2 [Moles/Vol] 33.0 mmol/L 21.0-32.0 [facility] Magnesium [Mass/Vol] 1.9 mg/dL 1.6-2.6 [facility] Urea nitrogen/Creatinine [Mass ratio] 20.5 mg/mg 10-20 [facility] - Hematology and Cell countsOrdered By: Martin Evans on 02-04-2023 Erythrocyte distribution width (RBC) [Entitic vol] 44.5 fL 35.1-43.9 [facility] Erythrocyte distribution width (RBC) [Ratio] 12.5 % 11.6-14.6 [facility] Immature granulocytes/100 WBC (Bld) 0.300 % 0.0-0.9 [facility] Comment on above: IG% - Immature Granu locytes (promyelocytes, myelocytes and metamyelocytes) > 1% indicates that a LEFT SHIFT is Present. MCH (RBC) [Entitic mass] 31.6 pg 27.0-32.0 [facility] Nucleated RBC/100 WBC (Bld) [Ratio] 0 % 0-5 [facility] - Hematology and Cell countson 02-04-2023 HbA1c (Bld) [Mass fraction] 6.1 % 4.2-6.3 [facility] MCHC Auto (RBC) [Mass/Vol]Or dered By: Martin Evans on 02-04-2023 MCHC (RBC) [Mass/Vol] 32.5 g/dL 32-36 [facility] No Panel InformationOrdered By: Martin Evans on 02-04-2023 Estimated GFR (MDRD) Amer 79 mL/min >60 [facility] Comment on above: GFR Calc Estimated GFR (MDRD) Non-Af Amer 65 mL/min >60 [facility] Comment on above: Non- GFR Calc Platelets bldOrdered By: Michael Evans on 02-04-2023 Platelets (Bld) [#/Vol] 197 10*3/uL 150-450 [facility] Serum or plasma albumin omero urement (mass/volume)Ordered By: Stewart Diane on 02-04-2023 Albumin [Mass/Vol] 4.2 g/dL 3.2-5.0 [facility] Serum or plasma calcium omero urement (mass/volume)Ordered By: Martin Evans on 02-04-2023 Calcium [Mass/Vol] 9.4 mg/dL 8.5-10.1 [facility] Serum or plasma cholesterol in HDL measurement (mass/volume)Ordered By: Stewart Diane on 02-04-2023 Cholesterol in HDL [Mass/Vol] 59 mg/dL >40 [facility] Comment on above: The drugs N-Acetylcy steine and Metamizole may falsely depress this assay. Reference Range HDL <40 mg/dL Low HDL Cholesterol HDL >or= 60 mg/dL High HDL Cholesterol Serum or plasma cholesterol in VLDL measurement (mass/volume)Ordered By: Stewart Diane on 02-04-2023 Cholesterol in VLDL [Mass/Vol] 18 mg/dL 5-40 [facility] Serum or plasma creatinine m easurement (mass/volume)Ordered By: Martin Evans on 02-04-2023 Creatinine [Mass/Vol] 0.93 mg/dL 0.55-1.02 [facility] Comment on above: The validity of the calculated GFR & GFRAA in patients over 70 years has not been determined. Clinical correlation is essential. Serum or plasma low density lipoprotein (LDL) cholesterol measurement (mass/volume)Ordered By: Stewart Diane on 02-04-2023 Cholesterol in LDL [Mass/Vol] 58 mg/dL 0-130 [facility] Serum or plasma urea nitroge n measurement (mass/volume)Ordered By: Martin Evans on 2023 Urea nitrogen [Mass/Vol] 19 mg/dL 7-18 [facility] Thin prep Papanicolaou smear with manual screeningOrdered By: Stewart Diane on 02-04-2023 Thin prep Papanicolaou smear with manual screening 38 U/L 15-37 [facility] Thin prep Papanicolaou smear with manual screeningOrdered By: Martin Evans on 02-04-2023 Thin prep Papanicolaou smear with manual screening 7 5-15 [facility] - Hematology and Cell countson 10-31-2022 HbA1c (Bld) [Mass fraction] 6.3 % 4.2-6.3 [facility] - Chemistry and C hemistry - challengeon 01-24-2022 Magnesium [Mass/Vol] 2.0 mg/dL 1.6-2.6 [facility] Work Phone: Basophil percentageon 2021 Chloride [Moles/Vol] 99 mmol/L 98-107 [facility] Work Phone: Glucose [Mass/Vol] 113 mg/dL 74-106 [facility] Work Phone: Comment on above: Fasting Glucose resu lt from 100 to 125 mg/dL suggests IMPAIRED HOMEOSTASIS per A.D.A. criteria. Potassium [Moles/Vol] 4.1 mmol/L 3.5-5.1 [facility] Work Phone: Sodium [Moles/Vol] 135 mmol/L 136-145 [facility] Work Phone: Laboratory - Chemistry and C hemistry - challengeon 01-09-2022 CO2 [Moles/Vol] 29.0 mmol/L 21.0-32.0 [facility] Work Phone: Magnesium [Mass/Vol] 1.2 mg/dL 1.6-2.6 [facility] Work Phone: Urea nitrogen/Creatinine [Mass ratio] 17.7 mg/mg 10-20 [facility] Work Phone: Laboratory - Hematology and Cell countson 01-09-2022 HbA1c (Bld) [Mass fraction] 6.3 % 4.2-6.3 [facility] Work Phone: No Panel Informationon 01-09 Estimated GFR (MDRD) Amer 57 mL/min >60 [facility] Work Phone: Comment on above: GFR Calc Estimated GFR (MDRD) Non-Af Amer 47 mL/min >60 [facility] Work Phone: Comment on above: Non- GFR Calc Serum or plasma calcium omero urement (mass/volume)on 01-09-2022 Calcium [Mass/Vol] 9.3 mg/dL 8.5-10.1 [facility] Work Phone: Serum or plasma creatinine m easurement (mass/volume)on 01-09-2022 Creatinine [Mass/Vol] 1.24 mg/dL 0.55-1.02 [facility] Work Phone: Comment on above: The validity of the calculated GFR & GFRAA in patients over 70 years has not been determined. Clinical correlation is essential. Serum or plasma urea nitroge n measurement (mass/volume)on 01-09-2022 Urea nitrogen [Mass/Vol] 22 mg/dL 7-18 [facility] Work Phone: Thin prep Papanicolaou smear with manual screeningon 01-09-2022 Thin prep Papanicolaou smear with manual screening 7 5-15 [facility] Work Phone: Final Surgical Pathology Rep [facility] 12-30-2021 Final Surgical Pathology Report . Pathology Reports Accession: Collected Date/Time: Received Date/Time: Pathologist: [id number] 12/23/2021 09:20 EDT 12/23/2021 11:01 EDT MD AUTUMN GODOY Final Surgical Pathology Report DIAGNOSIS: A) POSTERIOR VULVA, VULVECTOMY - INVASIVE MODERATELY DIFFERENTIATED SQUAMOUS CELL CARCINOMA IN A BACKGROUND OF HIGH GRADE SQUAMOUS INTRAEPITHELIAL LESION (JOIE III). MARGINS: NEGATIVE FOR INVASIVE SQUAMOUS CELL CARCINOMA (HIGH GRADE SQUAMOUS INTRAEPITHELIAL LESION (JOIE III) FOCALLY EXTENDS TO THE INFERIOR MARGIN IN THE 9:00 HALF). B) LEFT POSTERIOR VULVA, VULVECTOMY - LOW GRADE SQUAMOUS INTRAEPITHELIAL LESION (JOIE I). MARGINS NEGATIVE. CASE SUMMARY: PROCEDURE: PARTIAL VULVECTOMY TUMOR FOCALITY: UNIFOCAL TUMOR SITE: POSTERIOR VULVA TUMOR SIZE: GREATEST DIMENSION: 0.1 CM GREATEST LATERAL DIMENSION HISTOLOGIC TYPE: SQUAMOUS CELL CARCINOMA, NOS HISTOLOGIC GRADE: G2, MODERATELY DIFFERENTIATED DEPTH OF INVASION: 2.6 MM OTHER TISSUE/ORGAN INVOLVEMENT: NOT APPLICABLE LYMPHOVASCULAR INVASION: NOT IDENTIFIED MARGINS: ALL MARGINS NEGATIVE FOR INVASIVE CARCINOMA MARGIN STATUS FOR HSIL (JOIE III): HIGH GRADE SQUAMOUS EPITHELIAL LESION: PRESENT AT MARGIN. INFERIOR MARGIN IN 9:00 HALF - FOCALLY POSITIVE. REGIONAL LYMPH NODES: N/A (NO REGIONAL LYMPH NODES SUBMITTED OR FOUND) DISTANT METASTASIS: N/A TN CLASSIFICATION pT 1d pN Not assigned (No nodes submitted or found). Comment: Case reviewed with Dr. Zamorano. 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 Received in formalin, labeled with the patients name, Case #[id number], and posterior vulva stitch 12:00 is a oriented emanuel-white to medrano vulva excision measuring 4.4 x 2.1 x 1.3 cm. On the skin surface is a emanuel-white to medrano raised lesion measuring 1.5 x 1 cm. The superior half of the specimen is inked blue, the inferior half is inked black. There are no identified anatomical structures. TS -5, A1-A3-3:00 half, A4 -A5-9:00 half. Pathology Reports Accession: Collected Date/Time: Received Date/Time: Pathologist: [id number] 12/23/2021 09:20 EDT 12/23/2021 11:01 EDT MD AUTUMN GODOY GROSS DESCRIPTION: B. Received in formalin labeled left posterior vulva is a unoriented emanuel-white fragment of posterior vulva measuring 0.8 x 0.6 x 0.3 cm. Possible excision margin inked black. TS -1, bisected. Dictated by TEDDY SEN MICROSCOPIC DESCRIPTION: Slides reviewed. Electronically Signed by Pathology Report verified by [facility] AUTUMN GODOY MD Sign out Date: 12/30/2021 17:25 Performing Lab: [facility], [address] [place] [address] Pathology Dept Normal [facility] ([place]) ABO/Rh (Gel)on 12-23-2021 ABO/Rh Interp Positive Invalid Interpretation Code [facility] ([place]) Comment on above: Performed By: #### A BSGEL, ABOGEL #### [address] [address] ABS (Gel)on 12-23-2021 ABSC Interp (Gel) Negative Normal [facility] ([place]) Comment on above: Performed By: #### A BSGEL, ABOGEL #### [facility] [address] [place] [id number] XR CHEST 2 VIEWSon 2 XR CHEST 2 VIEWS ORIGINAL EXAMINATION: TWO XRAY VIEWS OF THE CHEST12/09/2021 9:28 am XR Chest, two views COMPARISON: None HISTORY: ORDERING SYSTEM PROVIDED HISTORY: Reason for Exam: cough, pacemaker FINDINGS: The lungs show no consolidation, infiltrate or mass. Heart size is normal and mediastinal contours are within normal limits for age and projection. No pneumothorax, pleural fluid, or vascular congestion is seen. The bones show no acute process. Other findings include: Lungs are hyperexpanded. There is a left-sided pacemaker device with multiple intracardiac leads in the right atrium, right ventricle. IMPRESSION: No acute cardio pulmonary process. COPD. . Interpreted by: Tej Calzada MD Preliminary Report By: Tej Calzada MD Electronically signed By Tej Calzada MD Dictated Date: 12/09/2021 10:53:29 PM Prelim Date: 12/09/2021 10:54:14 PM Sign Date: 12/09/2021 10:54:14 PM Ordering Provider: CHAR ALVARADO [facility] ([place]) .Auto Diffon 12-09-2021 Basophil, Absolute 0.1 10 3/mcL Normal 0.0-0.3 [facility] ([place]) Comment on above: Performed By: #### C MP, ABSGEL, GFR, ABOGEL #### [facility] [address] [place] [address] Basophils/100 WBC (Bld) 0.7 % Normal 0.0-2.5 A [facility] ([place]) Comment on above: Performed By: #### C MP, ABSGEL, GFR, ABOGEL #### [address] [address] Eosinophil, Absolute 0.2 10 3/mcL Normal 0.0-0.7 [facility] ([place]) Comment on above: Performed By: #### C MP, ABSGEL, GFR, ABOGEL #### [address] [address] Eosinophils/100 WBC (Bld) 2.2 % Normal 0.0-6.0 [facility] ([place]) Comment on above: Performed By: #### C MP, ABSGEL, GFR, ABOGEL #### [address] [address] Lymphocyte, Absolute 1.3 10 3/mcL Normal 0.9-4.3 [facility] ([place]) Comment on above: Performed By: #### C MP, ABSGEL, GFR, ABOGEL #### [address] [address] Lymphocytes/100 WBC (Bld) 11.9 % Low 20.0-40.0 [facility] ([place]) Comment on above: Performed By: #### C MP, ABSGEL, GFR, ABOGEL #### [address] [address] Monocyte, Absolute 0.7 10 3/mcL Normal 0.1-1.4 [facility] ([place]) Comment on above: Performed By: #### C MP, ABSGEL, GFR, ABOGEL #### [address] [address] Monocytes/100 WBC (Bld) 6.1 % Normal 2.0-13.0 A [facility] ([place]) Comment on above: Performed By: #### C MP, ABSGEL, GFR, ABOGEL #### [address] [address] Neutrophils/100 WBC (Bld) 79.1 % High 50.0-75.0 [facility] ([place]) Comment on above: Performed By: #### C MP, ABSGEL, GFR, ABOGEL #### [address] [address] .GFRon 12-09-2021 GFR Non- 54 ml/min/1.73sqm Normal [facility] ([place]) Comment on above: Result Comment: GFR Population mean for , Non- Americans Ages 20-29 = 116 mL/min/1.73 sq.m. Ages 30-39 = 107 mL/min/1.73 sq.m. Ages 40-49 = 99 mL/min/1.73 sq.m. Ages 50-59 = 93 mL/min/1.73 sq.m. Ages 60-69 = 85 mL/min/1.73 sq.m. Ages 70+ = 75 mL/min/1.73 sq.m. Chronic Kidney Disease: Less than 60 mL/min/1.73 square meters End Stage Renal Disease: Less than 15 mL/min/1.73 square meters Performed By: #### C MP, ABSGEL, GFR, ABOGEL #### [address] [address] GFR >60 Normal [facility] ([place]) Comment on above: Result Comment: GFR Population mean for , Non- Americans Ages 20-29 = 116 mL/min/1.73 sq.m. Ages 30-39 = 107 mL/min/1.73 sq.m. Ages 40-49 = 99 mL/min/1.73 sq.m. Ages 50-59 = 93 mL/min/1.73 sq.m. Ages 60-69 = 85 mL/min/1.73 sq.m. Ages 70+ = 75 mL/min/1.73 sq.m. Chronic Kidney Disease: Less than 60 mL/min/1.73 square meters End Stage Renal Disease: Less than 15 mL/min/1.73 square meters Performed By: #### C MP, ABSGEL, GFR, ABOGEL #### [address] [address] .NEUABSon 12-09-2021 Neutrophil, Absolute 8.9 10 3/mcL High 2.3-8.1 [facility] ([place]) Comment on above: Performed By: #### C MP, ABSGEL, GFR, ABOGEL #### [address] [address] ABO/Rh (Gel)on 12-09-2021 ABO/Rh Interp Positive Invalid Interpretation Code [facility] ([place]) Comment on above: Performed By: #### C MP, ABSGEL, GFR, ABOGEL #### [address] [address] ABS (Gel)on 12-09-2021 ABSC Interp (Gel) Negative Normal [facility] ([place]) Comment on above: Performed By: #### C MP, ABSGEL, GFR, ABOGEL #### [address] [address] CBCon 12-09-2021 Erythrocyte distribution width (RBC) [Ratio] 13.0 % Normal 11.5-15.5 [facility] ([place]) Comment on above: Performed By: #### C MP, ABSGEL, GFR, ABOGEL #### [place] [id number] Hematocrit (Bld) [Volume fraction] 46.3 % High 34.0-46.0 [facility] ([place]) Comment on above: Performed By: #### C MP, ABSGEL, GFR, ABOGEL #### [place] [id number] Hgb 16.0 G/dL Normal 12.0-16.0 [facility] ([place]) Comment on above: Performed By: #### C MP, ABSGEL, GFR, ABOGEL #### [place] [id number] MCH (RBC) [Entitic mass] 32.1 pg Normal 27.0-33.0 [facility] ([place]) Comment on above: Performed By: #### C MP, ABSGEL, GFR, ABOGEL #### [place] [id number] MCHC 34.6 G/dL Normal 32.0-36.0 [facility] ([place]) Comment on above: Performed By: #### C MP, ABSGEL, GFR, ABOGEL #### [place] [address] MCV (RBC) [Entitic vol] 92.7 fL Normal 80.0-99.0 [facility] [place] ([place]) Comment on above: Performed By: #### C MP, ABSGEL, GFR, ABOGEL #### [address] [address] Platelet 192 10 3/mcL Normal 150-450 [facility] ([place]) Comment on above: Performed By: #### C MP, ABSGEL, GFR, ABOGEL #### [place] [id number] Platelet mean volume (Bld) [Entitic vol] 8.7 fL Normal 6.6-10.5 [facility] ([place]) Comment on above: Performed By: #### C MP, ABSGEL, GFR, ABOGEL #### [place] [id number] RBC 4.99 10 6/mcL Normal 4.10-5.30 [facility] ([place]) Comment on above: Performed By: #### C MP, ABSGEL, GFR, ABOGEL #### [place] [id number] WBC 11.2 10 3/mcL High 4.5-10.8 [facility] ([place]) Comment on above: Performed By: #### C MP, ABSGEL, GFR, ABOGEL #### [address] [address] CMPon 12-09-2021 Albumin Level 4.3 G/dL Normal 3.2-4.8 [facility] ([place]) Comment on above: Performed By: #### C MP, ABSGEL, GFR, ABOGEL #### [place] [id number] Albumin/Globulin [Mass ratio] 1.1 {ratio} Normal 0.9-1.6 [facility] ([place]) Comment on above: Performed By: #### C MP, ABSGEL, GFR, ABOGEL #### [address] [address] ALP [Catalytic activity/Vol] 127 U/L High 38-126 [facility] ([place]) Comment on above: Performed By: #### C MP, ABSGEL, GFR, ABOGEL #### [address] [address] ALT [Catalytic activity/Vol] 14 U/L Normal 10-49 [facility] ([place]) Comment on above: Performed By: #### C MP, ABSGEL, GFR, ABOGEL #### [address] [address] AST [Catalytic activity/Vol] 25 U/L Normal 8-34 [facility] ([place]) Comment on above: Performed By: #### C MP, ABSGEL, GFR, ABOGEL #### [address] [address] Bili Total 1.20 mg/dL Normal 0.20-1.20 [facility] ([place]) Comment on above: Result Comment: Use of this assay is not recommended for patients undergoing treatment with eltrombopag due to the potential for falsely elevated results. Performed By: #### C MP, ABSGEL, GFR, ABOGEL #### [address] [address] BUN/Creatinine Ratio 15.4 ratio Normal 10.0-22.0 [facility] ([place]) Comment on above: Performed By: #### C MP, ABSGEL, GFR, ABOGEL #### [address] [address] Calcium [Mass/Vol] 10.3 mg/dL Normal 8.7-10.4 [facility] ([place]) Comment on above: Performed By: #### C MP, ABSGEL, GFR, ABOGEL #### [address] [address] Chloride [Moles/Vol] 100 mmol/L Normal 98-110 [facility] ([place]) Comment on above: Performed By: #### C MP, ABSGEL, GFR, ABOGEL #### [address] [address] CO2 [Moles/Vol] 34 mmol/L High 22-32 [facility] ([place]) Comment on above: Performed By: #### C MP, ABSGEL, GFR, ABOGEL #### [address] [address] Creatinine [Mass/Vol] 1.04 mg/dL Normal 0.50-1.20 [facility] ([place]) Comment on above: Performed By: #### C MP, ABSGEL, GFR, ABOGEL #### [address] [address] Electrolyte Balance 3.0 mEq/L Low 4.0-15.0 [facility] ([place]) Comment on above: Performed By: #### C MP, ABSGEL, GFR, ABOGEL #### [address] [address] Globulin 3.8 G/dL Normal 1.5-3.8 [facility] ([place]) Comment on above: Performed By: #### C MP, ABSGEL, GFR, ABOGEL #### [address] [address] Glucose [Mass/Vol] 139 mg/dL High 82-115 [facility] ([place]) Comment on above: Performed By: #### C MP, ABSGEL, GFR, ABOGEL #### [address] [address] Potassium [Moles/Vol] 4.9 mmol/L Normal 3.5-5.0 [facility] ([place]) Comment on above: Performed By: #### C MP, ABSGEL, GFR, ABOGEL #### [address] [address] Sodium [Moles/Vol] 137 mmol/L Normal 136-145 [facility] ([place]) Comment on above: Performed By: #### C MP, ABSGEL, GFR, ABOGEL #### [address] [address] Total Protein 8.1 G/dL Normal 5.7-8.2 [facility] ([place]) Comment on above: Result Comment: No te - New Reference Range in effect 19 Performed By: #### C MP, ABSGEL, GFR, ABOGEL #### [place] [id number] Urea nitrogen [Mass/Vol] 16.0 mg/dL Normal 8.0-22.0 [facility] ([place]) Comment on above: Performed By: #### C ADELSO, CLARA, TAMAR, PRAVEEN #### [facility] [address] [place] [id number] Absolute lymphocyte counton 10-09-2021 Lymphocytes Auto (Unsp spec) [#/Vol] 1.75 10*3/uL 0.83-4.51 [facility] Work Phone: Basophil percentageon 2021 Basophils/100 WBC (Bld) 0.8 % 0-1 [facility] Work Phone: Chloride [Moles/Vol] 98 mmol/L 98-107 [facility] Work Phone: Eosinophils/100 WBC (Bld) 3.6 % 0-5 [facility] Work Phone: Glucose [Mass/Vol] 107 mg/dL 74-106 [facility] Work Phone: Comment on above: Fasting Glucose resu lt from 100 to 125 mg/dL suggests IMPAIRED HOMEOSTASIS per A.D.A. criteria. Neutrophils (Bld) [#/Vol] 7.0 10*3/uL 2.0-7.7 [facility] Work Phone: Neutrophils/100 WBC (Bld) 70.3 % 47-70 [facility] Work Phone: Potassium [Moles/Vol] 3.9 mmol/L 3.5-5.1 [facility] Work Phone: Sodium [Moles/Vol] 135 mmol/L 136-145 [facility] Work Phone: WBC (Bld) [#/Vol] 10.0 10*3/uL 4.4-11.[address] [facility] Work Phone: Blood erythrocytes count (nu mber/volume)on 10-09-2021 RBC (Bld) [#/Vol] 4.81 10*6/uL 4.2-5.[address] [facility] Work Phone: Blood hemoglobin measurement (mass/volume)on 10-09-2021 Hemoglobin (Bld) [Mass/Vol] 15.7 g/dL 12.0-15.0 [facility] Work Phone: [phone] Blood lymphocytes/100 leukoc yteson 10-09-2021 Lymphocytes/100 WBC (Bld) 17.6 % 19-41 [facility] Work Phone: [phone] Blood monocytes/100 leukocyt eson 10-09-2021 Monocytes/100 WBC (Bld) 7.2 % 0-10 [facility] Work Phone: [phone] Blood platelet mean volumeon 10-09-2021 Platelet mean volume (Bld) [Entitic vol] 11.0 fL 6.2-12.0 [facility] Work Phone: [phone] Determination of erythrocyte mean corpuscular volume (MCV)on 10-09-2021 MCV (RBC) [Entitic vol] 94.4 fL 81-99 [facility] Work Phone: [phone] Hematocrit Auto (Bld) [Volum e fraction]on 10-09-2021 Hematocrit (Bld) [Volume fraction] 45.4 % 37-47 [facility] Work Phone: [phone] Laboratory - Chemistry and C hemistry - challengeon 10-09-2021 CO2 [Moles/Vol] 34.0 mmol/L 21.0-32.0 [facility] Work Phone: [phone] Urea nitrogen/Creatinine [Mass ratio] 16.4 mg/mg 10-20 [facility] Work Phone: [phone] Laboratory - Hematology and Cell countson 10-09-2021 Erythrocyte distribution width (RBC) [Entitic vol] 44.9 fL 35.1-43.9 [facility] Work Phone: [phone] Erythrocyte distribution width (RBC) [Ratio] 12.9 % 11.6-14.6 [facility] Work Phone: [phone] Immature granulocytes/100 WBC (Bld) 0.500 % 0.0-0.9 [facility] Work Phone: [phone] Comment on above: IG% - Immature Granu locytes (promyelocytes, myelocytes and metamyelocytes) > 1% indicates that a LEFT SHIFT is Present. MCH (RBC) [Entitic mass] 32.6 pg 27.0-32.0 [facility] Work Phone: Nucleated RBC/100 WBC (Bld) [Ratio] 0 % 0-5 [facility] Work Phone: [phone] MCHC Auto (RBC) [Mass/Vol]on 10-09-2021 MCHC (RBC) [Mass/Vol] 34.6 g/dL 32-36 [facility] Work Phone: No Panel Informationon 10-09 Estimated GFR (MDRD) Amer 65 mL/min >60 [facility] Work Phone: Comment on above: GFR Calc Estimated GFR (MDRD) Non-Af Amer 54 mL/min >60 [facility] Work Phone: Comment on above: Non- GFR Calc Platelets bldon 10-09-2021 Platelets (Bld) [#/Vol] 208 10*3/uL 150-450 [facility] Work Phone: Serum or plasma calcium omero urement (mass/volume)on 10-09-2021 Calcium [Mass/Vol] 9.5 mg/dL 8.5-10.1 [facility] Work Phone: Serum or plasma creatinine m easurement (mass/volume)on 10-09-2021 Creatinine [Mass/Vol] 1.10 mg/dL 0.55-1.02 [facility] Work Phone: Comment on above: The validity of the calculated GFR & GFRAA in patients over 70 years has not been determined. Clinical correlation is essential. Serum or plasma urea nitroge n measurement (mass/volume)on 10-09-2021 Urea nitrogen [Mass/Vol] 18 mg/dL 7-18 [facility] Work Phone: Thin prep Papanicolaou smear with manual screeningon 10-09-2021 Thin prep Papanicolaou smear with manual screening 3 5-15 [facility] Work Phone: Whole blood hemoglobin A1c/t otal hemoglobin ratio (mass fraction)on 10-09-2021 HbA1c (Bld) [Mass fraction] 6.2 % 3.8-5.6 [facility] Work Phone: Comment on above: Normal < 5.7 % Predi abetic 5.7 - 6.4 % Diabetic >or= 6.5 % Please note range changes. Vital Signs Date Time Vital Sign Value Performing Clinician Facility 08-24-2024 08:55-0400 Body height 162.[address] Martin Evans MD Work Phone: [facility] 08-24-2024 08:55-0400 Body mass index (BMI) [Ratio] 18.3 kg/m2 Dr. Martin Evans MD Work Phone: [facility] 08-24-2024 08:55-0400 Body temperature 97.7 [degF] Dr. Martin Evans MD Work Phone: [facility] 08-24-2024 08:55-0400 Body weight 48.[address] Martin Evans MD Work Phone: [facility] 08-24-2024 08:55-0400 Diastolic blood pressure 78 mm[Hg] Dr. Martin Evans MD Work Phone: [facility] 08-24-2024 08:55-0400 Heart rate 66 /min Dr. Martin Evans MD Work Phone: [facility] 08-24-2024 08:55-0400 Respiratory rate 16 /min Dr. Martin Evans MD Work Phone: [facility] 08-24-2024 08:55-0400 Systolic blood pressure 110 mm[Hg] Dr. Martin Evans MD Work Phone: [facility] 05-23-2024 08:29-0400 Body mass index (BMI) [Ratio] 19 kg/m2 Dr. Martin Evans MD Work Phone: [facility] 05-23-2024 08:29-0400 Body temperature 98.2 [degF] Dr. Martin Evans MD Work Phone: [facility] 05-23-2024 08:29-0400 Body weight 50.[address] Martin Evans MD Work Phone: [facility] 05-23-2024 08:29-0400 Diastolic blood pressure 70 mm[Hg] Dr. Martin Evans MD Work Phone: [facility] 05-23-2024 08:29-0400 Heart rate 64 /min Dr. Martin Evans MD Work Phone: [facility] 05-23-2024 08:29-0400 Respiratory rate 18 /min Dr. Martin Evans MD Work Phone: [facility] 05-23-2024 08:29-0400 SaO2% (BldA) [Mass fraction] 99 % Dr. Martin Evans MD Work Phone: [facility] 05-23-2024 08:29-0400 Systolic blood pressure 128 mm[Hg] Dr. Martin Evans MD Work Phone: [facility] 03-11-2024 11:39-0500 Body temperature 97.81 [degF] Jose Akins MD Work Phone: [facility] 03-11-2024 11:39-0500 Diastolic blood pressure 63 mm[Hg] Jose Akins MD Work Phone: [facility] 03-11-2024 11:39-0500 Heart rate 60 /min Jose Akins MD Work Phone: [facility] 03-11-2024 11:39-0500 Respiratory rate 16 /min Jose Akins MD Work Phone: [facility] 03-11-2024 11:39-0500 SaO2% (BldA) [Mass fraction] 98 % Jose Akins MD Work Phone: [facility] 03-11-2024 11:39-0500 Systolic blood pressure 131 mm[Hg] Jose Akins MD Work Phone: [facility] 03-11-2024 05:14-0500 Body mass index (BMI) [Ratio] 17.83 kg/m2 Jose Akins MD Work Phone: [facility] 03-11-2024 05:14-0500 Body weight 47.13 kg Jose Akins MD Work Phone: [facility] 03-07-2024 20:00-0500 Body height 162.6 cm Jose Akins MD Work Phone: [facility] 02-24-2024 09:02-0500 Body mass index (BMI) [Ratio] 18 kg/m2 Dr. Martin Evans MD Work Phone: [facility] 02-24-2024 09:02-0500 Body temperature 96.8 [degF] Dr. Martin Evans MD Work Phone: [facility] 02-24-2024 09:02-0500 Body weight 47.[address] Martin Evans MD Work Phone: [facility] 02-24-2024 09:02-0500 Diastolic blood pressure 64 mm[Hg] Dr. Martin Evans MD Work Phone: [facility] 02-24-2024 09:02-0500 Heart rate 76 /min Dr. Martin Evans MD Work Phone: [facility] 02-24-2024 09:02-0500 Respiratory rate 17 /min Dr. Martin Evans MD Work Phone: [facility] 02-24-2024 09:02-0500 SaO2% (BldA) [Mass fraction] 99 % Dr. Martin Evans MD Work Phone: [facility] 02-24-2024 09:02-0500 Systolic blood pressure 122 mm[Hg] Dr. Martin Evans MD Work Phone: [facility] 02-16-2024 10:07-0500 Body temperature 97.8 [degF] Dr. Martin Evans MD Work Phone: [facility] 02-16-2024 10:07-0500 Diastolic blood pressure 75 mm[Hg] Dr. Martin Evans MD Work Phone: [facility] 02-16-2024 10:07-0500 Heart rate 75 /min Dr. Martin Evans MD Work Phone: [facility] 02-16-2024 10:07-0500 Respiratory rate 16 /min Dr. Martin Evans MD Work Phone: [facility] 02-16-2024 10:07-0500 SaO2% (BldA) [Mass fraction] 98 % Dr. Martin Evans MD Work Phone: [facility] 02-16-2024 10:07-0500 Systolic blood pressure 112 mm[Hg] Dr. Martin Evans MD Work Phone: [facility] 02-16-2024 07:56-0500 Body mass index (BMI) [Ratio] 45.1 kg/m2 Dr. Martin Evans MD Work Phone: [facility] 02-16-2024 07:56-0500 Body weight 119.[address] Martin Evans MD Work Phone: [facility] 05-15-2023 09:58-0500 Body height 162.[address] Martin Evans Work Phone: [facility] 05-15-2023 09:58-0500 Body mass index (BMI) [Ratio] 19.5 kg/m2 Dr. Martin Evans Work Phone: [facility] 05-15-2023 09:58-0500 Body temperature 96.9 [degF] Dr. Martin Evans Work Phone: [facility] 05-15-2023 09:58-0500 Body weight 51.[address] Martin Evans Work Phone: [facility] 05-15-2023 09:58-0500 Diastolic blood pressure 78 mm[Hg] Dr. Martin Evans Work Phone: [facility] 05-15-2023 09:58-0500 Heart rate 74 /min Dr. Martin Evans Work Phone: [facility] 05-15-2023 09:58-0500 Respiratory rate 16 /min Dr. Martin Evans Work Phone: [facility] 05-15-2023 09:58-0500 Systolic blood pressure 118 mm[Hg] Dr. Martin Evans Work Phone: [facility] 04-20-2023 08:38-0500 Body height 162.[address] Martin Evans Work Phone: [facility] 04-20-2023 08:37-0500 Body mass index (BMI) [Ratio] 19.4 kg/m2 Dr. Martin Evans Work Phone: [facility] 04-20-2023 08:37-0500 Body weight 51.[address] Martin Evans Work Phone: [facility] 04-20-2023 08:37-0500 Diastolic blood pressure 69 mm[Hg] Dr. Martin Evans Work Phone: [facility] 04-20-2023 08:37-0500 Systolic blood pressure 132 mm[Hg] Dr. Martin Evans Work Phone: [facility] 04-14-2023 09:20-0500 Body mass index (BMI) [Ratio] 19.7 kg/m2 Dr. Martin Evans Work Phone: [facility] 04-14-2023 09:20-0500 Body weight 52.[address] Martin Evans Work Phone: [facility] 04-14-2023 09:20-0500 Diastolic blood pressure 75 mm[Hg] Dr. Martin Evans Work Phone: [facility] 04-14-2023 09:20-0500 Systolic blood pressure 157 mm[Hg] Dr. Martin Evans Work Phone: [facility] 02-10-2023 13:06-0500 Body mass index (BMI) [Ratio] 19.5 kg/m2 Dr. Martin Evans Work Phone: [facility] 02-10-2023 13:06-0500 Body weight 51.[address] Martin Evans Work Phone: [facility] 02-10-2023 13:06-0500 Diastolic blood pressure 72 mm[Hg] Dr. Martin Evans Work Phone: [facility] 02-10-2023 13:06-0500 Heart rate 65 /min Dr. Martin Evans Work Phone: [facility] 02-10-2023 13:06-0500 Respiratory rate 18 /min Dr. Martin Evans Work Phone: [facility] 02-10-2023 13:06-0500 SaO2% (BldA) [Mass fraction] 99 % Dr. Martin Evans Work Phone: [facility] 02-10-2023 13:06-0500 Systolic blood pressure 121 mm[Hg] Dr. Martin Evans Work Phone: [facility] 02-04-2023 10:32-0500 Body height 162.[address] Martin Evans Work Phone: [facility] 02-04-2023 10:32-0500 Body mass index (BMI) [Ratio] 19.9 kg/m2 Dr. Martin Evans Work Phone: [facility] 02-04-2023 10:32-0500 Body temperature 98.3 [degF] Dr. Martin Evans Work Phone: [facility] 02-04-2023 10:32-0500 Body weight 52.[address] Martin Evans Work Phone: [facility] 02-04-2023 10:32-0500 Diastolic blood pressure 76 mm[Hg] Dr. Martin Evans Work Phone: [facility] 02-04-2023 10:32-0500 Heart rate 54 /min Dr. Martin Evans Work Phone: [facility] 02-04-2023 10:32-0500 Respiratory rate 16 /min Dr. Martin Evans Work Phone: [facility] 02-04-2023 10:32-0500 SaO2% (BldA) [Mass fraction] 99 % Dr. Martin Evans Work Phone: [facility] 02-04-2023 10:32-0500 Systolic blood pressure 146 mm[Hg] Dr. Martin Evans Work Phone: [facility] 10-31-2022 10:50-0400 Body mass index (BMI) [Ratio] 20.9 kg/m2 Dr. Martin Evans Work Phone: [facility] 10-31-2022 10:50-0400 Body temperature 98.2 [degF] Dr. Martin Evans Work Phone: [facility] 10-31-2022 10:50-0400 Body weight 55.[address] Martin Evans Work Phone: [facility] 10-31-2022 10:50-0400 Diastolic blood pressure 62 mm[Hg] Dr. Martin Evans Work Phone: [facility] 10-31-2022 10:50-0400 Heart rate 48 /min Dr. Martin Evans Work Phone: [facility] 10-31-2022 10:50-0400 Respiratory rate 16 /min Dr. Martin Evans Work Phone: [facility] 10-31-2022 10:50-0400 SaO2% (BldA) [Mass fraction] 96 % Dr. Martin Evans Work Phone: [facility] 10-31-2022 10:50-0400 Systolic blood pressure 116 mm[Hg] Dr. Martin Evans Work Phone: [facility] 01-09-2022 14:07-0400 Body height 162.[address] Martin Evans Work Phone: [facility] Work Phone: 01-09-2022 14:07-0400 Body mass index (BMI) [Ratio] 20.4 kg/m2 Dr. Martin Evans Work Phone: [facility] Work Phone: 01-09-2022 14:07-0400 Body temperature 96.3 [degF] Dr. Martin Evans Work Phone: [facility] Work Phone: 01-09-2022 14:07-0400 Body weight 53.[address] Martin Evans Work Phone: [facility] Work Phone: 01-09-2022 14:07-0400 Diastolic blood pressure 62 mm[Hg] Dr. Martin Evans Work Phone: [facility] Work Phone: 01-09-2022 14:07-0400 Heart rate 70 /min Dr. Martin Evans Work Phone: [facility] Work Phone: 01-09-2022 14:07-0400 Respiratory rate 16 /min Dr. Martin Evans Work Phone: [facility] Work Phone: 01-09-2022 14:07-0400 SaO2% (BldA) [Mass fraction] 98 % Dr. Martin Evans Work Phone: [facility] Work Phone: 01-09-2022 14:07-0400 Systolic blood pressure 110 mm[Hg] Dr. Martin Evans Work Phone: [facility] Work Phone: 10-09-2021 08:44-0400 Body height 162.[address] Martin Evans Work Phone: [facility] Work Phone: 10-09-2021 08:44-0400 Body mass index (BMI) [Ratio] 22.6 kg/m2 Dr. Martin Evans Work Phone: [facility] Work Phone: 10-09-2021 08:44-0400 Body temperature 97.7 [degF] Dr. Martin Evans Work Phone: [facility] Work Phone: 10-09-2021 08:44-0400 Body weight 59.[address] Martin Evans Work Phone: [facility] Work Phone: 10-09-2021 08:44-0400 Diastolic blood pressure 62 mm[Hg] Dr. Martin Evans Work Phone: [facility] Work Phone: 10-09-2021 08:44-0400 Heart rate 67 /min Dr. Martin Evans Work Phone: [facility] Work Phone: 10-09-2021 08:44-0400 Respiratory rate 14 /min Dr. Martin Evans Work Phone: [facility] Work Phone: 10-09-2021 08:44-0400 SaO2% (BldA) [Mass fraction] 99 % Dr. Martin Evans Work Phone: [facility] Work Phone: 10-09-2021 08:44-0400 Systolic blood pressure 120 mm[Hg] Dr. Martin Evans Work Phone: [facility] Work Phone: 07-05-2021 08:55-0400 Body temperature 97.8 [degF] Dr. Martin Evans Work Phone: [facility] Work Phone: 07-05-2021 08:55-0400 Body weight 61.[address] Martin Evans Work Phone: [facility] Work Phone: 07-05-2021 08:55-0400 Diastolic blood pressure 62 mm[Hg] Dr. Martin Evans Work Phone: [facility] Work Phone: 07-05-2021 08:55-0400 Heart rate 94 /min Dr. Martin Evans Work Phone: [facility] Work Phone: 07-05-2021 08:55-0400 Respiratory rate 16 /min Dr. Martin Evans Work Phone: [facility] Work Phone: 07-05-2021 08:55-0400 SaO2% (BldA) [Mass fraction] 99 % Dr. Martin Evans Work Phone: [facility] Work Phone: 07-05-2021 08:55-0400 Systolic blood pressure 120 mm[Hg] Dr. Martin Evans Work Phone: [facility] Work Phone: 07-05-2021 08:55-0400 Body temperature 97.8 [degF] Dr. Martin Evans Work Phone: [facility] Work Phone: 07-05-2021 08:55-0400 Body weight 61.[address] Martin Evans Work Phone: [facility] Work Phone: 07-05-2021 08:55-0400 Diastolic blood pressure 62 mm[Hg] Dr. Martin Evans Work Phone: [facility] Work Phone: 07-05-2021 08:55-0400 Heart rate 94 /min Dr. Martin Evans Work Phone: [facility] Work Phone: 07-05-2021 08:55-0400 Respiratory rate 16 /min Dr. Martin Evans Work Phone: [facility] Work Phone: 07-05-2021 08:55-0400 SaO2% (BldA) [Mass fraction] 99 % Dr. Martin Evans Work Phone: [facility] Work Phone: 07-05-2021 08:55-0400 Systolic blood pressure 120 mm[Hg] Dr. Martin Evans Work Phone: [facility] Work Phone: Encounters Encounter Date Encounter Type Care Provider Facility Start: 08-24-2024 Dr. Martin Evans MD -Laboratory [facility] Start: 08-24-2024 End: 08-24-[address] Martin Evans MD Work Phone: [facility] Work Phone: Start: 08-24-2024 End: 08-24-2024 Dr. Martin Evans MD -[facility] Work Phone: Start: 07-20-2024 End: 07-20-2024 Aliyah Aguilar [facility] Work Phone: Start: 07-20-2024 End: 07-20-[address] Martin Evans MD Work Phone: [facility] Work Phone: Start: 06-08-2024 End: 06-08-[address] Mratin Evans MD Work Phone: [facility] Work Phone: Start: 06-08-2024 End: 06-08-2024 Dr. Stewart Diane MD -[facility] Start: 06-08-2024 End: 06-08-2024 ambulatory Stewart Diane Facility:[facility] Start: 05-23-2024 End: 05-23-2024 Dr. Martin Evans MD -[facility] Work Phone: Start: 05-23-2024 End: 05-23-2024 ambulatory [facility] Start: 05-23-2024 End: 05-23-2024 ambulatory [facility] Facility:[facility] Start: 04-18-2024 End: 04-18-2024 Dr. Stewart Diane MD -[facility] Work Phone: Start: 04-18-2024 End: 04-18-2024 ambulatory Stewart Diane Facility:[facility] Start: 03-21-2024 End: 03-21-2024 Dr. Stewart Diane MD -[facility] Work Phone: Start: 03-21-2024 End: 03-21-2024 ambulatory Stewart Diane Facility:[facility] Start: 03-07-2024 End: 03-11-2024 Evaluation and management of inpatient Jose Akins MD Work Phone: [phone] Comment on above: Malfunction of devic e Start: 03-07-2024 ambulatory DIXON HENNESSY Faci lity:[facility] Start: 02-24-2024 End: 02-24-2024 Dr. Martin Evans MD -Laboratory, [place] Start: 02-24-2024 End: 02-24-2024 Dr. Martin Evans MD -[facility] Work Phone: Start: 02-24-2024 End: 02-24-2024 ambulatory [facility] Start: 02-24-2024 End: 02-24-2024 ambulatory [facility] Facility:[facility] Start: 02-16-2024 End: 02-16-2024 Dr. Alfonzo Rahman DO -Emergency [facility] Work Phone: Start: 02-16-2024 End: 02-16-2024 Emergency department patient visit [facility] Facility:[facility] Start: 01-27-2024 End: 01-27-2024 ambulatory [facility] Start: 01-12-2024 End: 01-12-2024 ambulatory Emma Vargas NP Facility:[facility] Start: 12-16-2023 ambulatory Emma Vargas [employer] Facili ty:[facility] Start: 12-15-2023 ambulatory Rudolph Gooden NP Facility :[facility] Start: 12-15-2023 End: 12-15-2023 ambulatory Rudolph Gooden [employer] Facility:[facility] Start: 12-04-2023 ambulatory Janallisontyron Evans Facili ty:[facility] Start: 12-04-2023 End: 12-04-2023 [facility] Start: 11-18-2023 End: 11-18-2023 ambulatory Efdionallisontyron Tejadae Facility:[facility] Start: 11-16-2023 End: 11-16-[facility] Start: 11-16-2023 End: 11-16-2023 [facility] Start: 08-17-2023 End: 08-17-2023 [facility] Start: 08-17-2023 End: 08-17-2023 ambulatory [facility] Facility:[facility] Start: 08-10-2023 End: 08-10-[facility] Start: 08-10-2023 End: 08-10-2023 ambulatory [facility] Facility:[facility] Start: 05-19-[address] Martin Evans Work Phone: [facility] Work Phone: Start: 05-15-2023 End: 05-15-[address] Martin Evans Work Phone: [facility] Work Phone: Start: 05-15-2023 End: 05-15-[address] Martin Evans Work Phone: [facility] Work Phone: Start: 04-20-2023 End: 04-20-[address] Martin Evans Work Phone: [facility] Work Phone: Start: 04-20-2023 End: 04-20-[address] Martin Evans Work Phone: [facility] Work Phone: Start: 04-20-2023 End: 04-20-[address] Martin Evans Work Phone: [facility] Work Phone: Start: 04-14-2023 End: 04-14-[address] Martin Evans Work Phone: [facility] Work Phone: Start: 04-14-2023 End: 04-14-[address] Martin Evans Work Phone: [facility] Work Phone: Start: 04-14-2023 End: 04-14-[address] Martin Evans Work Phone: [facility] Work Phone: Start: 02-10-2023 End: 02-10-[address] Martin Evans Work Phone: [facility] Work Phone: Start: 02-04-2023 End: 02-04-[address] Martin Evans Work Phone: [facility] Work Phone: Start: 02-04-2023 End: 02-04-[address] Martin Evans Work Phone: [facility] Start: 02-04-2023 End: 02-04-[address] Martin Evans Work Phone: [facility] Work Phone: Start: 10-31-2022 End: 10-31-[address] Martin Evans Work Phone: [facility] Work Phone: Start: 01-24-2022 End: 01-24-[address] Martin Evans Work Phone: [facility] Work Phone: Start: 01-24-2022 End: 01-24-[address] Martin Evans Work Phone: [facility] [place] Start: 01-23-2022 End: 01-24-2022 ambulatory CHAR ALVARADO MD Facility:A Start: 01-21-2022 End: 01-21-[address] Martin Evans Work Phone: [facility] Work Phone: Start: 01-21-2022 End: 01-21-[address] Martin Evans Work Phone: [facility] Start: 01-09-2022 End: 01-09-[address] Martin Evans Work Phone: [facility] Work Phone: Start: 01-09-2022 End: 01-09-[address] Martin Evans Work Phone: [facility] [place] Start: 01-09-2022 End: 01-09-[address] Martin Evans Work Phone: [facility] Start: 12-23-2021 End: 12-23-2021 ambulatory CHAR ALVARADO MD Facility:A Start: 12-09-2021 End: 12-10-2021 ambulatory CHAR ALVARADO MD Facility:A Start: 11-14-2021 End: 11-15-2021 ambulatory CHAR ALVARADO MD Facility:A Start: 11-14-2021 End: 11-14-2021 Patient encounter procedure CHAR ALVARADO MD [facility] Start: 10-15-2021 End: 10-15-[address] Martin Evans Work Phone: [facility] Start: 10-09-2021 End: 10-09-[address] Martin Evans Work Phone: [facility] Start: 08-15-2021 End: 08-15-[address] Martin Evans Work Phone: [facility] Start: 07-11-2021 End: 07-11-[address] Martin Evans Work Phone: [facility] Start: 07-05-2021 End: 07-05-[address] Martin Evans Work Phone: [facility] Start: 01-10-[address] Martin Evans Work Phone: [facility] Procedures Date Procedure Procedure Detail Performing Clinician Start: 05-23-2024 Blood count smear rscp w/mnl difrntl wbc count Dr. Martin Evans MD Work Phone: Start: 05-23-2024 Mean corpuscular hem oglobin concentration determination Dr. Martin Evans MD Work Phone: Start: 05-23-2024 Nucleated red blood cell count procedure Dr. Martin Evans MD Work Phone: Start: 05-23-2024 Platelet mean volume determination Dr. Martin Evans MD Work Phone: Start: 03-11-2024 CARDIAC RHYTHM Other Ot her OT Start: 03-11-2024 DEVICE EVALUATION Other Other OT Start: 03-11-2024 Glucose measurement, blood Jerri Talbot MD Work Phone: Start: 03-11-2024 Basic metabolic pane l calcium total Jerri Talbot MD Work Phone: Start: 03-10-2024 Glucose measurement, blood Jerri Talbot MD Work Phone: Start: 03-10-2024 Radiologic exam ches t 2 views Len Shin MD Work Phone: Start: 03-10-2024 Glucose measurement, blood Jreri Talbot MD Work Phone: Start: 03-10-2024 Insj 1 transvns eltr d perm pacemaker/impltbl dfb Darren Engle MD Work Phone: Start: 03-10-2024 Glucose measurement, blood Jerri Talbot MD Work Phone: Start: 03-10-2024 Assay of magnesium Mere Talbot MD Work Phone: Start: 03-09-2024 Glucose measurement, blood Joselyn Morelos MD Work Phone: Start: 03-09-2024 Glucose measurement, blood Joselyn Morelos MD Work Phone: Start: 03-09-2024 Glucose measurement, blood Joselyn Morelos MD Work Phone: Start: 03-09-2024 Glucose measurement, blood Joselyn Morelos MD Work Phone: Start: 03-09-2024 Basic metabolic pane l calcium total Joselyn Morelos MD Work Phone: Start: 03-08-2024 Glucose measurement, blood Joselyn Morelos MD Work Phone: Start: 03-08-2024 Glucose measurement, blood Joselyn Morelos MD Work Phone: Start: 03-08-2024 End: 03-08-2024 Glucose measurement, blood Joselyn Morelos MD Work Phone: Start: 03-08-2024 Assay of magnesium Hayden guerrero Rai, MD Work Phone: Start: 03-07-2024 Njx px xtr vngrph w/ intro ndl/intracath Darren Engle MD Work Phone: Start: 03-07-2024 Assay of magnesium Hayden guerrero Rai, MD Work Phone: Start: 03-07-2024 Glucose measurement, blood Thai Miranda MD Work Phone: Start: 02-16-2024 X-ray of chest, PA a nd lateral views Dr. Martin Evans MD Work Phone: Start: 01-21-2022 Plain chest X-ray Dr. Wesley Evans Work Phone: Start: 08-15-2021 Biopsy of vulva CHAR ALVARADO MD Comment on above: Rectal Start: 03-09-2021 H/O: surgery H/O vulvectomy Dr. Jan Evans Work Phone: Start: 03-09-2008 Implantation of inte rnal cardiac defibrillator CHAR ALVARADO MD Start: 03-09-2007 Partial hysterectomy SA MERLY ALVARADO MD Cholecystectomy CHAR Lozano MD Partial vulvectomy CHAR GAMING MD Plan of Treatment Date Care Activity Detail Author Start: 03-11-2025 Potassium [Moles/vol ume] in Serum or Plasma POTASSIUM [facility] Start: 05-23-2024 Patient referral [facility] Work Phone: Start: 02-16-2024 [facility] Start: 02-16-2024 [facility] Start: 11-08-2023 COVID-19 VACCINE () COVID-19 VACCINE () [facility] Start: 11-08-2023 Influenza vaccination INFLUENZA VACC INE (#1) [facility] Start: 12-15-2021 Tetanus vaccination TETANUS [facility] Start: 2021 RSV VACCINE (1 - 1-d ose 60+ series) RSV VACCINE (1 - 1-dose 60+ series) [facility] Start: 11-30-2011 Zoster vaccine hzv l karin for subcutaneous use ZOSTER (SHINGLES) VACCINE (1 of 2) [facility] Start: 2006 Screening for malign ant neoplasm of colon COLORECTAL CANCER SCREENING DISCUSSION [facility] Start: 2001 Lipid panel LIPID SCREENING [facility] Start: 2001 Screening for malign ant neoplasm of breast MAMMOGRAM SCREENING DISCUSSION [facility] Start: 1982 Screening for malign ant neoplasm of cervix CERVICAL CANCER SCREENING DISCUSSION [facility] Start: 1976 HIV screening HIV SCREENING DISCUSSION [facility] Start: 11-30-1967 PNEUMOCOCCAL VACCINE SERIES (1 of 2 - PCV) PNEUMOCOCCAL VACCINE SERIES (1 of 2 - PCV) [facility] Start: 1961 Hepatitis C screening HEPATITI S C VIRUS SCREENING [facility] Alanine aminotransfe rase [Enzymatic activity/volume] in Serum or Plasma [facility] Albumin [Mass/volume ] in Serum or Plasma [facility] Alkaline phosphatase [Enzymatic activity/volume] in Serum or Plasma [facility] Bilirubin, total measurement [facility] Bilirubin.direct [Mass/volume] in Serum or Plasma [facility] Cholesterol [Mass/vo lume] in Serum or Plasma [facility] Cholesterol in HDL [Mass/volume] in Serum or Plasma [facility] Hemoglobin A1c/Hemoglobin.total in Blood [facility] End: 03-10-2024 Interrogation of cardiac pacemaker PACEMAKER/ICD INTERROGATION Cardiac Services Routine One Time for 1 Occurrences starting 03/10/2024 until 03/10/2024 [facility] Work Phone: Comment on above: One Time for 1 Occur rences starting 03/10/2024 until 03/10/2024 Low density lipoprot ein cholesterol measurement [facility] Patient referral [facility] Work Phone: Total cholesterol:HD L ratio measurement [facility] Total protein measurement [facility] Triglycerides measurement [facility] VLDL cholesterol measurement [facility] Payers Date Payer Category Payer Medicare MEDICARE MEDICAR E A AND B [id number] 2024-Present [address] [place] [address] [id number] 2023 Self-pay [id number] 2003 Medicare [id number] 1960 Unknown [id number] [id number]7 1961 Unknown [id number] 2.840.1.000899.3.579.2.627 1961 Unknown [id number] 2.840.1.069650.3.579.2.627 1961 Unknown [id number] 2.840.1.121185.3.579.2.627 1961 Unknown [id number] 2.16.840.1.000786.3.579.2.594 1961 Unknown [id number] 2.16.840.1.249801.3.579.2.594 Unknown [id number] 2.16.840.1.016449.3.579.2.462 Unknown [id number] 2.16.840.1.597413.3.579.2.462 Unknown [id number] 2.16.840.1.875030.3.579.2.462 Unknown [id number] 2.16.840.1.769726.3.579.2.462 Unknown [id number] 2.840.1.471557.3.579.2.462 Unknown [id number] 2.16.840.1.029229.3.579.2.462 Unknown [id number] 2..840.1.742564.3.579.2.462 Unknown [id number] 2.840.1.445814.3.579.2.462 Unknown [id number] 2.840.1.911535.3.579.2.462 Unknown [id number] 2.840.1.283370.3.579.2.462 Unknown [id number] 2.840.1.520139.3.579.2.462 Unknown [id number] 2.840.1.435818.3.579.2.462 Unknown [id number] 2.840.1.629705.3.579.2.462 Unknown [id number] 2.840.1.356938.3.579.2.462 Unknown [id number] 2.840.1.347599.3.579.2.462 Unknown [id number] 2.840.1.852639.3.579.2.462 Unknown [id number] 2.840.1.826034.3.579.2.462 Unknown [id number] 2.840.1.353044.3.579.2.462 Unknown [id number] 2.840.1.552336.3.579.2.462 Unknown [id number] 2.840.1.408222.3.579.2.462 Unknown [id number] 2.840.1.560110.3.579.2.462 Unknown [id number] 2.840.1.567756.3.579.2.462 Unknown [id number] 2.16.840.1.750558.3.579.2.462 Unknown [id number] 2.16.840.1.890402.3.579.2.462 Unknown [id number] 2.16.840.1.699887.3.579.2.462 Unknown [id number] 2.16.840.1.262730.3.579.2.462 Unknown [id number] 2.16.840.1.369549.3.579.2.462 Unknown [id number] 2.16.840.1.156170.3.579.2.462 Unknown [id number] 2.16.840.1.268528.3.579.2.462 Unknown [id number] 2.16.840.1.003608.3.579.2.462 Unknown [id number] 2.16.840.1.728694.3.579.2.462 Unknown [id number] 2.16840.1.396155.3.579.2.462 Social History Date Type Detail Facility Start: 07-05-2021 End: 05-15-2023 Tobacco smoking status [facility] Unknown if ever smoked [facility] Start: 1960 Sex Assigned At Female [facility] Start: 11-13-2021 End: 02-16-2024 Tobacco smoking status Heavy tobacco smoker (finding) [facility] Sex Assigned At Sex [facility] Start: 03-07-2024 Tobacco smoking status NMIS Ex-smoker [facility] History of tobacco use Current smoker [facility] History of tobacco use Cigarette Smoker O [facility] Start: 03-11-2024 Alcoholic beverage intake Lifetime non-drinker (finding) [facility] Start: 03-07-2024 End: 03-08-2024 History of Social function [facility] Start: 03-07-2024 End: 03-08-2024 [facility] Utilities [facility] Has the [place], Hab Housing, or water [employer] threatened to shut off services in your home in past 12Mo No [facility] How hard is it for y ou to pay for the very basics like food, housing, medical care, and heating Somewhat hard [facility] (I/We) worried wheth er (my/our) food would run out before (I/we) got money to buy more. Never true [facility] In the past 12 month s, has lack of transportation kept you from medical appointments or from getting medications? No [facility] Start: 03-07-2024 Tobacco Comment Recently stopped 03/05/24 [facility] Start: 1960 Sex assigned at Not on file [facility] Start: 06-14-2024 Sex Female (finding) [facility] Medical Equipment Procedure Code Equipment Code Equipment Origin al Text Equipment Identifier Dates Defibrillator Ca rdiac 3d .99cm Spiral 5.37x8.18cm Inogen - [id number] Start: 03-10-2024 Lead Pacing 59cm Atrial Ventricular Ingevity+ Extendable - [id number] Start: 03-10-2024 Plug Lead Silico ne Port Is-1 Kit If - [id number] Start: 03-10-2024 Comment on above: Description: Lead ca p. Clinical Notes 04-14-2023 to 07-20-2024 Note Date & Type Note Facility 07-20-2024 Procedure note [facility] 05-23-2024 Evaluation note Diagnosis Onset Date Resolution Activities involving personal bathing and showering acute May 23, 2024 8:23am Tobacco abuse, in remission acute May 23, 2024 8:23am Chronic diarrhea chronic May 232024 8:23am Essential (primary) hypertension chronic May 23, 2024 8:23am Generalized anxiety disorder chronic May 23, 2024 8:23am Lower extremity weakness chronic May 23, 2024 8:23am Type 2 diabetes mellitus chronic May 23, 2024 8:23am Chronic systolic (congestive) heart failure chronic July 20, 2024 8:03am Nonischemic cardiomyopathy chronic May 14th, 2025 8:03am Presence of biventricular implantable cardioverter-defibri llator (ICD) April, chronic July 20, 2024 8:03am ICD (implantable cardioverter-defibri llator) battery depletion resolved July 20, 2024 8:03am [facility] Work Phone: 1(641) 940-134802-10-2025 Evaluation note* Diagnosis Onset Date Resolution Status Admit Date Chronic systolic (congestive) heart failure chronic Febru kami2024 8:25am Nonischemic cardiomyopathy chronic April 18, 2024 8:25am Presence of biventricular implantable cardioverter-defibrillator (ICD) April, chronic April 18, 025 8:25am Activities involving personal bathing and showering acute May 23, 2024 8:23am Tobacco abuse, in remission acute May 23, 2024 8:23am Chronic diarrhea chronic May 232024 8:23am Essential (primary) hypertension chronic May 23, 2024 8:23am Generalized anxiety disorder chronic May 23, 2024 8:23am Lower extremity weakness chronic May 23, 2024 8:23am Type 2 diabetes mellitus chronic May 23, 2024 8:23am Chronic systolic (congestive) heart failure chronic July 072024 8:03am Nonischemic cardiomyopathy chronic July 20, 2024 8:03am Presence of biventricular implantable cardioverter-defibrillator (ICD) April, chronic July 20, 2024 8 :03am ICD (implantable cardioverter-defibrillator) battery depletion resolved July 20, 2024 8:03am [place] [employer] [facility] Work Phone: [phone]) 658-301701-03-2025 History of Present illness Narrative* ELIZABETH Chester - 03/11/2024 1:29 PM EST Care Management Discharge Note Patient discharging to home Transport Request Mode of Transfer: Private Vehicle Patient medically stable for discharge per physician/medical team. Patient/Cytogeneticist remain inagreement with the discharge plan. Nyla JOHNSON Social Worker Assistant [facility] * SHELLEY Flores - 03/11/2024 11:14 AM EST Electrophysiology Consult SIGN OFF Tanvi Garza is a 63 y.o. female with a history of COPD, hypertension, CAD and sick sinus syndrome status post pacemaker implantation in 2008. Since that time, she has [facility]. Her LVEF has fluctuated but was most recently 25% (was previously as high as 40%). She has also been given GDMT for CHF. Her capture threshold has gradually risen and is now 6.5 V which occasionally provokes diaphragmatic stimulation. She was admitted 03/07/2024 from EP clinic for inpatient evaluation of CONTRACT PARALEGAL-D system and possible intervention. On 03/10, the patient underwent placement of a new LBBA lead and capped CS lead. Postoperative device interrogation was normal. Postoperative chest x-ray did not show evidence of a pneumothorax. Thank you for allowing us to participate in the care of Tanvi Garza. Our consult team will sign off today, 03/11/24. For our full impression and recommendations, please see our most recent consult / progress note. Regarding follow up, please note the following: Follow Up Appointments Device Clinic appointment scheduled with an outside clinic-[facility] Follow Up Testing No additional testing is required at the follow up visit. Medication Changes No changes were made to patient's cardiovascular medications. If you have any further questions regarding the care of this patient, please do not hesitate to reach out to our team. SHELLEY Flores 03/11/24 11:14 AM * Jerri Talbot MD - 03/10/2024 6:26 PM EST [facility] Progress Note Patient: Tanvi Garza, : 1960, Impression / Plan Tanvi Garza is a 63 y.o. female with a history of NICM / HFrEF (EF 25% 11/2023) s/p CONTRACT PARALEGAL-D (2008), HTN, and COPD who presented as a direct admission from EP clinic for management of her cardiac device that was found to be at recommended replacement time. Cardiac device at recommended replacement time Pt had a CONTRACT PARALEGAL-D placed in 2008 for low EF that was found to be at the recommended replacement time, or elective replacement indicator. 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 Underweight, Body mass index is 17.68 kg/m . - Monitor weight. Follow up with PCP. Patient has implanted cardiac device DVT prophylaxis with lovenox (on hold erina-procedurally) Anticipated Disposition: home at discharge, timing pending EP device intervention Code status is Full Code Interval History / Subjective No acute events overnight, HDS, afebrile Denies acute complaints Seen after return from EP lab Mg 1.4, giving IV Mg 6 g today Also received PO K-DUR 40 mEq this morning for K 3.8 Objective Temp: [97.9 F (36.6 C)-98.4 F (36.9 C)] 98 F (36.7 C) Pulse (Heart Rate): [61-90] 76 Resp Rate: [16-18] 18 BP: (105-148)/(56-70) 118/57 O2 Sat (%): [96 %-100 %] 97 % Weight: [46.7 kg (103 lb)] 46.7 kg (103 lb) Physical Exam Gen: A, A, NAD ENT: MMM Resp: CTA bilat, normal effort Cardio: RRR, normal S1, S2, No JOSÉ MIGUEL GI: S/NT/ND, NABS Psych: Appropriate affect and cognition Data Review WBC/Hgb/Hct/Plts: 5.82/13.1/39.3/163 (01/02 0512) Na/K+/Phos/Mg/Ca: 137/3.8/--/1.4/-- (03/10 511) Bun/Creat/Cl/CO2/Glucose: 16/0.91/100/29/120 (03/10 511-03/10 1226) Ptt/Pt/Inr: 25.7/14.5/1.1 (03/10 511) * Joselyn Morelos MD - 03/09/2024 2:11 PM EST [facility] Progress Note Patient: Tanvi Garza, : 1960, Impression / Plan Tanvi Garza is a 63 y.o. female with a history of NICM / HFrEF (EF 25% 11/2023) s/p CONTRACT PARALEGAL-D (2008), HTN, and COPD who presented as a direct admission from EP clinic for management of her cardiac device that was found to be at recommended replacement time. Cardiac device at recommended replacement time Pt had a CONTRACT PARALEGAL-D placed in 2008 for low EF that was found to be at the recommended replacement time, or elective replacement indicator. -EP consulted -S/p venogram 03/07 per EP that showed patent L axillary and subclavian veins -Discussed with EP 03/08, and they do not need ROSALIO, CT chest, or cardiac surgery consult. They planto add a new lead. They were hopeful for 03/08, but could not get done due to scheduling. They are planning for 03/10. 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 Underweight, Body mass index is 18.2 kg/m . - Monitor weight. Follow up with PCP. DVT prophylaxis with lovenox (on hold reina-procedurally) Anticipated Disposition: home at discharge, timing pending EP device intervention Code status is Full Code Interval History / Subjective Pt reports feeling well overall. She denies acute concerns. She asks if she can forego Lasix on Thursday morning if she is discharged then after she gets her procedure tomorrow. Objective Temp: [97.3 F (36.3 C)-98.6 F (37 C)] 97.3 F (36.3 C) Pulse (Heart Rate): [57-75] 62 Resp Rate: [18] 18 BP: (113-131)/(54-63) 116/54 O2 Sat (%): [97 %-99 %] 98 % Weight: [48.1 kg (106 lb 0.7 oz)] 48.1 kg (106 lb 0.7 oz) Physical Exam Gen: A, A, NAD ENT: MMM Resp: CTA bilat, normal effort Cardio: RRR, normal S1, S2, No JOSÉ MIGUEL GI: S/NT/ND, NABS Psych: Appropriate affect and cognition Data Review WBC/Hgb/Hct/Plts: 5.21/12.4/36.8/124 (03/09 623) Na/K+/Phos/Mg/Ca: 138/4.3/--/--/8.9 (03/09 623) Bun/Creat/Cl/CO2/Glucose: 15/0.82/105/27/118 (03/09 623-03/09 114) * Joselyn Morelos MD - 03/08/2024 4:12 PM EST [facility] Progress Note Patient: Tanvi Garza, : 1960, Impression / Plan Tanvi Garza is a 63 y.o. female with a history of NICM / HFrEF (EF 25% 11/2023) s/p CONTRACT PARALEGAL-D (2008), HTN, and COPD who presented as a direct admission from EP clinic for management of her cardiac device that was found to be at recommended replacement time. Cardiac device at recommended replacement time Pt had a CONTRACT PARALEGAL-D placed in 2008 for low EF that was found to be at the recommended replacement time, or elective replacement indicator. -EP consulted -S/p venogram 03/07 per EP that showed patent L axillary and subclavian veins -Discussed with EP 03/08, and they do not need ROSALIO, CT chest, or cardiac surgery consult. They planto add a new lead. They were hopeful for 03/08, but could not get done due to scheduling. Hopefullythis can be done 1/2. Will need to be NPO at midnight prior -Continue telemetry -Monitor and replete electrolytes prn Chronic NICM / HFrEF s/p CONTRACT PARALEGAL-D 2008 HTN EF 25% on TTE 11/2023 -Continue Lasix, losartan, and Coreg -Would plan to hold Lasix and losartan on the morning of EP procedure (anticipate hopefully 1/2) Dyslipidemia: atorvastatin for non-formulary simvastatin COPD: duonebs PRN GERD: continue PPI Mood d/o: continue ativan PRN H/o Uterine/Vulvar Ca: continue home estradiol Vitamin D Deficiency: continue supplementation Complexity Thrombocytopenia - Continue to monitor. Underweight, Body mass index is 18.27 kg/m . - Monitor weight. Follow up with PCP. DVT prophylaxis with lovenox Anticipated Disposition: home at discharge, timing pending EP device intervention Code status is Full Code Interval History / Subjective Pt reports feeling well overall. She denies chest pain, SOB, N/V. She states all the doctors here have been very nice. Updated on plan that EP is hopeful they can get her procedure done today. Pt asks if she can speak with a public health social worker face to face to discuss concerns about her finances especially regarding the hospital stay. Objective Temp: [97.6 F (36.4 C)-98.4 F (36.9 C)] 97.7 F (36.5 C) Pulse (Heart Rate): [56-76] 60 Resp Rate: [16-18] 18 BP: (115-137)/(57-62) 120/57 O2 Sat (%): [96 %-99 %] 97 % Weight: [47.7 kg (105 lb 3.2 oz)-48.3 kg (106 lb 7 oz)] 48.3 kg (106 lb 7 oz) Physical Exam Gen: A, A, NAD ENT: MMM Resp: CTA bilat, normal effort Cardio: RRR, normal S1, S2, No JOSÉ MIGUEL GI: S/NT/ND, NABS Psych: Ox3, appropriate affect and cognition Data Review WBC/Hgb/Hct/Plts: --/--/--/126 (03/08 634) Na/K+/Phos/Mg/Ca: 137/4.5/--/1.8/-- (03/08 634) Bun/Creat/Cl/CO2/Glucose: 17/0.75/109/25/127 (03/08 634-03/08 1200) * JESSICA Anthony - 03/08/2024 3:10 PM EST KRUNAL provided patient with home care administrator/maker services for [facility]. KRUNAL explained that she is able to self refer if she needs the services or she can wait. They also provide more services than what is on the sheet provided. SW remains available for any additional needs. Olesya PERRIN, SENIOR SQL SERVER DEVELOPER Salesforce Trainer * JESSICA Anthony - 03/08/2024 11:48 AM EST Discharge Planning Patient Assessment Admission Assessment Patient Assessment Completed: Initial Expected Discharge Disposition: Home Reason for Admission: PPM at [facility] Is the patient able to participate in the assessment?: Yes Information source: Patient Demographics Verified and Updated: Yes Has the patient been admitted to any hospital in the last 30 days?: No Advanced Care Planning Has the patient completed Advance Directives?: Not Completed Referral to Social Work for Advance Care Planning? : Patient Agreeable Legal Next of Kin Does the patient have a Guardian?: No Spouse: Yes Name and Contact information: Adam Garza, Parent(s) - List All Living Parents: Yes Name and Contact information: Cici Orellana, Adult Sibling(s), List All Adult Siblings: Yes Name and Contact information: César Orellana, Referral to Social Work to Identify Legal Next of Kin?: No Reviewed and Updated in Demographics? : Yes Outpatient Providers Does patient have a primary care physician? : Yes When was the patient's last PCP visit?: < 30 days Patient Care Team: Martin Evans MD as PCP - General (Internal Medicine) Stewart Diane MD (Cardiovascular Disease) Environment/Caregivers Is the patient from a facility or [place] No Patient lives with: Spouse or Partner Living Environment: House (Duplex) How many steps does the patient have to navigate to enter or inside the home? : 2 YULIA Does the patient have a first floor set-up with bed and bathroom?: Yes Patient Caregiving Responsibilities: Self Patient-identified caregiver/support network: Family Who does the patient identify as a teachable caregiver(s)?: Spouse or Partner Services Does the patient use a home health or hospice agency?: No Current with dialysis?: No Does the patient use any community programs or services?: No Does patient use DME? : nebulizer Does the patient use oxygen?: No Does patient use medical supplies? : nebulizer supplies Anticipated Changes Related to Illness/Injury? : No Initial ADLs Prior to Arrival What is the patient's baseline physical functioning prior to this acute illness?: independent What is the patient's baseline cognitive functioning prior to this acute illness?: independent Is the patient's baseline functioning changed by this acute illness? : No Concerns with patient being able to care for themselves at home? : Unable to assess Are there therapy or specialists consults?: No Medication Management Does the patient have prescription insurance coverage? : No [employer] [facility] [address] [place], [place] [id number] - [address] [id number] [facility] [address] [employer] Does the patient or agency sales representative express financial concerns? : Yes Financial concern type: Medical Bills, Medication cost/copay(s) Referrals to address financial concerns: Financial Counselor Employed?: No (Gets 800$ through [employer]) Values and Beliefs Cultural or orthodox practices that may impact discharge planning and/or medical care?: No Initial Discharge Planning Expected Discharge Disposition: Home Transportation Available for Discharge: Private Vehicle, Family or Friend Anticipated DME: unknown at this time Patient Assessment Completed: Initial Expected Discharge Date: 03/11/2024 Discharge Planning Summary SW met with patient to complete IA. Patient reports that she does not have any services in the homebut thinks she may need help at discharge with home making services. SW to look into community resources and notify the patient if there are any in her area. Patient also had financial concerns regarding medications and the hospital bill. SW reached out to financial counseling to complete HCAP screen and notified pharmacy operations specialist of NO [facility] D. Patient confirms that she will have transportation at discharge. SW provided HCPOA packet, explained the document and encouraged the patient to reach out when she was ready to complete. Care Management Plan Role of Social Worker Assistant explained while admitted to [facility] 2. PCP/Specialist/pharmacy information updated as needed 3. Patient demographic/address/emergency contact information verified 4. Social Worker Assistant will continue to follow with medical team to coordinate discharge planning. JESSICA Hurtado Salesforce Trainer * Johann Cabrera - 03/07/2024 3:10 PM EST Department of Pharmacy Admission Medication Reconciliation Note Patient: Tanvi Garza Room/Bed: [facility]/A I have reviewed the patient's home medication list with the following sources Patient recall with prompting, Dispense Report, OARRs, and Medication list reviewed in conjunction with provider/nurse interview . I have also reviewed this list with the pharmacist. A call to the pharmacy was not needed because the information compiled from listed sources corroborates the patient/caregiver interview. Andrey recommending the following changes to the home medication list. These recommendations are considered preliminary until attestation of this note by a pharmacist. Added to Home Medications: Furosemide 40 mg Edits to Home Medications: Albuterol - Added frequency: every 4 hours as needed, previously unlisted. Other Comments: The patient's allergies were not reviewed at this time. Please feel free to contact me with any further questions. Name: Johann Cabrera Phone #: [phone] Date/Time: 03/07/2024 3:10 PM Time Spent: 20 minutes Associated attestation - Hamlet[facility] - 03/09/2024 10:35 PM EST Department of Pharmacy Admission Medication Reconciliation Note Patient: Tanvi Garza Room/Bed: 7034/A I have reviewed the home medication list with the Molecular Modeler. The home medication list status is: complete. All changes to the home medication list have been updated in IHIS. Updated SENIOR ACCOUNT REPRESENTATIVE Med List: Prior to Admission Medications Prescriptions Albuterol (2.5 MG/3ML) 0.083% inhalation solution Sig: Take 3 mL by nebulization every 4 hours as needed. Estradiol 0.5 MG tablet Sig: Take 1 tablet by mouth daily. LORazepam 1 MG tablet Sig: Take 1 tablet by mouth daily as needed for Anxiety. Losartan 25 MG tablet Sig: Take 1 tablet by mouth every evening. Magnesium Oxide 400 MG capsule Sig: Take 1 capsule by mouth 3 (three) times a day. Potassium Chloride ER 20 MEQ Tab CR tablet Sig: Take 1 tablet by mouth 2 times daily. carveDILOL 12.5 MG tablet Sig: Take 1 tablet by mouth 2 times daily. cholecalciferol 50 MCG (2000 UNIT) tablet Sig: Take 1 tablet by mouth daily. furOSEmide 40 MG tablet Sig: Take 1 tablet by mouth daily. omeprazole [address] capsule Sig: Take 1 capsule by mouth daily. simvastatin 20 MG tablet Sig: Take 1 tablet by mouth at bedtime. Facility-Administered Medications: None Please feel free to contact me with any further questions. Name: Wu Mcnulty [facility] Phone #: [phone] Date/Time: 03/09/2024 10:35 PM documented in this encounterReg[facility] Company01-03-2025 History of Present illness Narrative* ELIZABETH Chester - 03/11/2024 1:29 PM EST Care Management Discharge Note Patient discharging to home Transport Request Mode of Transfer: Private Vehicle Patient medically stable for discharge per physician/medical team. Patient/Cytogeneticist remain inagreement with the discharge plan. Nyla JOHNSON Social Worker Assistant [facility] * SHELLEY Flores - 03/11/2024 11:14 AM EST Electrophysiology Consult SIGN OFF Tanvi Garza is a 63 y.o. female with a history of COPD, hypertension, CAD and sick sinus syndrome status post pacemaker implantation in 2008. Since that time, she has followed with [facility]. Her LVEF has fluctuated but was most recently 25% (was previously as high as 40%). She has also been given GDMT for CHF. Her capture threshold has gradually risen and is now 6.5 V which occasionally provokes diaphragmatic stimulation. She was admitted 03/07/2024 from EP clinic for inpatient evaluation of CONTRACT PARALEGAL-D system and possible intervention. On 03/10, the patient underwent placement of a new LBBA lead and capped CS lead. Postoperative device interrogation was normal. Postoperative chest x-ray did not show evidence of a pneumothorax. Thank you for allowing us to participate in the care of Tanvi Garza. Our consult team will sign off today, 03/11/24. For our full impression and recommendations, please see our most recent consult / progress note. Regarding follow up, please note the following: Follow Up Appointments Device Clinic appointment scheduled with an outside clinic-[place] Follow Up Testing No additional testing is required at the follow up visit. Medication Changes No changes were made to patient's cardiovascular medications. If you have any further questions regarding the care of this patient, please do not hesitate to reach out to our team. SHELLEY Flores 03/11/24 11:14 AM * Jerri Talbot MD - 03/10/2024 6:26 PM EST Hospital Medicine Progress Note Patient: Tanvi Garza, : 1960, Impression / Plan Tanvi Garza is a 63 y.o. female with a history of NICM / HFrEF (EF 25% 11/2023) s/p CONTRACT PARALEGAL-D (2008), HTN, and COPD who presented as a direct admission from EP clinic for management of her cardiac device that was found to be at recommended replacement time. Cardiac device at recommended replacement time Pt had a CONTRACT PARALEGAL-D placed in 2008 for low EF that was found to be at the recommended replacement time, or elective replacement indicator. -EP consulted -S/p venogram 03/07 per EP that showed patent L axillary and subclavian veins -EP consulted, s/p successful implantation of new LBBA pacing lead to mid-RV septum and chronic CS lead capped on 03/10 -Continue telemetry -Monitor and replete electrolytes prn Chronic NICM / HFrEF s/p CONTRACT PARALEGAL-D 2008 HTN EF 25% on TTE 11/2023 -Hold Lasix on 1/2 am -Held losartan 03/09 pm (needs held for 24 hours prior to EP procedure) -Continue Coreg Dyslipidemia: continue atorvastatin for non-formulary simvastatin COPD: duonebs PRN GERD: continue PPI Mood d/o: continue ativan PRN H/o Uterine/Vulvar Ca: continue home estradiol Vitamin D Deficiency: continue supplementation Complexity Hypomagnesemia - Continue to monitor and replete. Underweight, Body mass index is 17.68 kg/m . - Monitor weight. Follow up with PCP. Patient has implanted cardiac device DVT prophylaxis with lovenox (on hold reina-procedurally) Anticipated Disposition: home at discharge, timing pending EP device intervention Code status is Full Code Interval History / Subjective No acute events overnight, HDS, afebrile Denies acute complaints Seen after return from EP lab Mg 1.4, giving IV Mg 6 g today Also received PO K-DUR 40 mEq this morning for K 3.8 Objective Temp: [97.9 F (36.6 C)-98.4 F (36.9 C)] 98 F (36.7 C) Pulse (Heart Rate): [61-90] 76 Resp Rate: [16-18] 18 BP: (105-148)/(56-70) 118/57 O2 Sat (%): [96 %-100 %] 97 % Weight: [46.7 kg (103 lb)] 46.7 kg (103 lb) Physical Exam Gen: A, A, NAD ENT: MMM Resp: CTA bilat, normal effort Cardio: RRR, normal S1, S2, No JOSÉ MIGUEL GI: S/NT/ND, NABS Psych: Appropriate affect and cognition Data Review WBC/Hgb/Hct/Plts: 5.82/13.1/39.3/163 (03/10 511) Na/K+/Phos/Mg/Ca: 137/3.8/--/1.4/-- (03/10 511) Bun/Creat/Cl/CO2/Glucose: 16/0.91/100/29/120 (03/10 511-03/10 1226) Ptt/Pt/Inr: 25.7/14.5/1.1 (03/10 511) * Joselyn Morelos MD - 03/09/2024 2:11 PM EST [facility] Medicine Progress Note Patient: Tanvi Garza, : 1960, Impression / Plan Tanvi Garza is a 63 y.o. female with a history of NICM / HFrEF (EF 25% 11/2023) s/p CONTRACT PARALEGAL-D (2008), HTN, and COPD who presented as a direct admission from EP clinic for management of her cardiac device that was found to be at recommended replacement time. Cardiac device at recommended replacement time Pt had a CONTRACT PARALEGAL-D placed in 2008 for low EF that was found to be at the recommended replacement time, or elective replacement indicator. -EP consulted -S/p venogram 03/07 per EP that showed patent L axillary and subclavian veins -Discussed with EP 03/08, and they do not need ROSALIO, CT chest, or cardiac surgery consult. They planto add a new lead. They were hopeful for 03/08, but could not get done due to scheduling. They are planning for 03/10. 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 Underweight, Body mass index is 18.2 kg/m . - Monitor weight. Follow up with PCP. DVT prophylaxis with lovenox (on hold reina-procedurally) Anticipated Disposition: home at discharge, timing pending EP device intervention Code status is Full Code Interval History / Subjective Pt reports feeling well overall. She denies acute concerns. She asks if she can forego Lasix on Thursday morning if she is discharged then after she gets her procedure tomorrow. Objective Temp: [97.3 F (36.3 C)-98.6 F (37 C)] 97.3 F (36.3 C) Pulse (Heart Rate): [57-75] 62 Resp Rate: [18] 18 BP: (113-131)/(54-63) 116/54 O2 Sat (%): [97 %-99 %] 98 % Weight: [48.1 kg (106 lb 0.7 oz)] 48.1 kg (106 lb 0.7 oz) Physical Exam Gen: A, A, NAD ENT: MMM Resp: CTA bilat, normal effort Cardio: RRR, normal S1, S2, No JOSÉ MIGUEL GI: S/NT/ND, NABS Psych: Appropriate affect and cognition Data Review WBC/Hgb/Hct/Plts: 5.21/12.4/36.8/124 (03/09 623) Na/K+/Phos/Mg/Ca: 138/4.3/--/--/8.9 (03/09 623) Bun/Creat/Cl/CO2/Glucose: 15/0.82/105/27/118 (03/09 623-03/09 1149) * Joselyn Morelos MD - 03/08/2024 4:12 PM EST [facility] Medicine Progress Note Patient: Tanvi Garza, : 1960, Impression / Plan Tanvi Garza is a 63 y.o. female with a history of NICM / HFrEF (EF 25% 11/2023) s/p CONTRACT PARALEGAL-D (2008), HTN, and COPD who presented as a direct admission from EP clinic for management of her cardiac device that was found to be at recommended replacement time. Cardiac device at recommended replacement time Pt had a CONTRACT PARALEGAL-D placed in 2008 for low EF that was found to be at the recommended replacement time, or elective replacement indicator. -EP consulted -S/p venogram 03/07 per EP that showed patent L axillary and subclavian veins -Discussed with EP 03/08, and they do not need ROSALIO, CT chest, or cardiac surgery consult. They planto add a new lead. They were hopeful for 03/08, but could not get done due to scheduling. Hopefullythis can be done 1/2. Will need to be NPO at midnight prior -Continue telemetry -Monitor and replete electrolytes prn Chronic NICM / HFrEF s/p CONTRACT PARALEGAL-D 2008 HTN EF 25% on TTE 11/2023 -Continue Lasix, losartan, and Coreg -Would plan to hold Lasix and losartan on the morning of EP procedure (anticipate hopefully 1/2) Dyslipidemia: atorvastatin for non-formulary simvastatin COPD: duonebs PRN GERD: continue PPI Mood d/o: continue ativan PRN H/o Uterine/Vulvar Ca: continue home estradiol Vitamin D Deficiency: continue supplementation Complexity Thrombocytopenia - Continue to monitor. Underweight, Body mass index is 18.27 kg/m . - Monitor weight. Follow up with PCP. DVT prophylaxis with lovenox Anticipated Disposition: home at discharge, timing pending EP device intervention Code status is Full Code Interval History / Subjective Pt reports feeling well overall. She denies chest pain, SOB, N/V. She states all the doctors here have been very nice. Updated on plan that EP is hopeful they can get her procedure done today. Pt asks if she can speak with a public health social worker face to face to discuss concerns about her finances especially regarding the hospital stay. Objective Temp: [97.6 F (36.4 C)-98.4 F (36.9 C)] 97.7 F (36.5 C) Pulse (Heart Rate): [56-76] 60 Resp Rate: [16-18] 18 BP: (115-137)/(57-62) 120/57 O2 Sat (%): [96 %-99 %] 97 % Weight: [47.7 kg (105 lb 3.2 oz)-48.3 kg (106 lb 7 oz)] 48.3 kg (106 lb 7 oz) Physical Exam Gen: A, A, NAD ENT: MMM Resp: CTA bilat, normal effort Cardio: RRR, normal S1, S2, No JOSÉ MIGUEL GI: S/NT/ND, NABS Psych: Ox3, appropriate affect and cognition Data Review WBC/Hgb/Hct/Plts: --/--/--/126 (03/08 634) Na/K+/Phos/Mg/Ca: 137/4.5/--/1.8/-- (03/08 634) Bun/Creat/Cl/CO2/Glucose: 17/0.75/109/25/127 (03/08 634-03/08 1200) * JESSICA Anthony - 03/08/2024 3:10 PM EST [facility]RU[facility] provided patient with home care administrator/maker services for [facility]. [facility] explained that she is able to self refer if she needs the services or she can wait. They also provide more services than what is on the sheet provided. [facility]RUNAL remains available for any additional needs. JESSICA Hurtado Salesforce Trainer * JESSICA Anthony - 03/08/2024 11:48 AM EST Discharge Planning Patient Assessment Admission Assessment Patient Assessment Completed: Initial Expected Discharge Disposition: Home Reason for Admission: PPM at [facility] Is the patient able to participate in the assessment?: Yes Information source: Patient Demographics Verified and Updated: Yes Has the patient been admitted to any hospital in the last 30 days?: No Advanced Care Planning Has the patient completed Advance Directives?: Not Completed Referral to Social Work for Advance Care Planning? : Patient Agreeable Legal Next of Kin Does the patient have a Guardian?: No Spouse: Yes Name and Contact information: Adam Garza, Parent(s) - List All Living Parents: Yes Name and Contact information: Cici Orellana, Adult Sibling(s), List All Adult Siblings: Yes Name and Contact information: César Orellana, Referral to Social Work to Identify Legal Next of Kin?: No Reviewed and Updated in Demographics? : Yes Outpatient Providers Does patient have a primary care physician? : Yes When was the patient's last PCP visit?: < 30 days Patient Care Team: Martin Evans MD as PCP - General (Internal Medicine) Stewart Diane MD (Cardiovascular Disease) Environment/Caregivers Is the patient from a facility or [place] No Patient lives with: Spouse or Partner Living Environment: House (Duplex) How many steps does the patient have to navigate to enter or inside the home? : 2 YULIA Does the patient have a first floor set-up with bed and bathroom?: Yes Patient Caregiving Responsibilities: Self Patient-identified caregiver/support network: Family Who does the patient identify as a teachable caregiver(s)?: Spouse or Partner Services Does the patient use a home health or hospice agency?: No Current with dialysis?: No Does the patient use any community programs or services?: No Does patient use DME? : nebulizer Does the patient use oxygen?: No Does patient use medical supplies? : nebulizer supplies Anticipated Changes Related to Illness/Injury? : No Initial ADLs Prior to Arrival What is the patient's baseline physical functioning prior to this acute illness?: independent What is the patient's baseline cognitive functioning prior to this acute illness?: independent Is the patient's baseline functioning changed by this acute illness? : No Concerns with patient being able to care for themselves at home? : Unable to assess Are there therapy or specialists consults?: No Medication Management Does the patient have prescription insurance coverage? : No [facility] [address] [place] [address] [address] [facility] [address] [facility] [address] [employer] Does the patient or agency sales representative express financial concerns? : Yes Financial concern type: Medical Bills, Medication cost/copay(s) Referrals to address financial concerns: Financial Counselor Employed?: No (Gets 800$ through [employer]) Values and Beliefs Cultural or orthodox practices that may impact discharge planning and/or medical care?: No Initial Discharge Planning Expected Discharge Disposition: Home Transportation Available for Discharge: Private Vehicle, Family or Friend Anticipated DME: unknown at this time Patient Assessment Completed: Initial Expected Discharge Date: 03/11/2024 Discharge Planning Summary SW met with patient to complete IA. Patient reports that she does not have any services in the homebut thinks she may need help at discharge with home making services. SW to look into community resources and notify the patient if there are any in her area. Patient also had financial concerns regarding medications and the hospital bill. SW reached out to financial counseling to complete HCAP screen and notified pharmacy operations specialist of NO PART D. Patient confirms that she will have transportation at discharge. SW provided HCPOA packet, explained the document and encouraged the patient to reach out when she was ready to complete. Care Management Plan Role of Social Worker Assistant explained while admitted to [facility] 2. PCP/Specialist/pharmacy information updated as needed 3. Patient demographic/address/emergency contact information verified 4. Social Worker Assistant will continue to follow with medical team to coordinate discharge planning. JESSICA Hurtado Salesforce Trainer * Johann Cabrera - 03/07/2024 3:10 PM EST Department of Pharmacy Admission Medication Reconciliation Note Patient: Tanvi Garza Room/Bed: [facility]/A I have reviewed the patient's home medication list with the following sources Patient recall with prompting, Dispense Report, OARRs, and Medication list reviewed in conjunction with provider/nurse interview . I have also reviewed this list with the pharmacist. A call to the pharmacy was not needed because the information compiled from listed sources corroborates the patient/caregiver interview. Andrey recommending the following changes to the home medication list. These recommendations are considered preliminary until attestation of this note by a pharmacist. Added to Home Medications: Furosemide 40 mg Edits to Home Medications: Albuterol - Added frequency: every 4 hours as needed, previously unlisted. Other Comments: The patient's allergies were not reviewed at this time. Please feel free to contact me with any further questions. Name: Johann Cabrera Phone #: [phone] Date/Time: 03/07/2024 3:10 PM Time Spent: 20 minutes Associated attestation - Wu Mcnulty RPH - 03/09/2024 10:35 PM EST Department of Pharmacy Admission Medication Reconciliation Note Patient: Tanvi Garza [facility] have reviewed the home medication list with the Molecular Modeler. The home medication list status is: complete. All changes to the home medication list have been updated in IHIS. Updated SENIOR ACCOUNT REPRESENTATIVE Med List: Prior to Admission Medications Prescriptions Albuterol (2.5 MG/3ML) 0.083% inhalation solution Sig: Take 3 mL by nebulization every 4 hours as needed. Estradiol 0.5 MG tablet Sig: Take 1 tablet by mouth daily. LORazepam 1 MG tablet Sig: Take 1 tablet by mouth daily as needed for Anxiety. Losartan 25 MG tablet Sig: Take 1 tablet by mouth every evening. Magnesium Oxide 400 MG capsule Sig: Take 1 capsule by mouth 3 (three) times a day. Potassium Chloride ER 20 MEQ Tab CR tablet Sig: Take 1 tablet by mouth 2 times daily. carveDILOL 12.5 MG tablet Sig: Take 1 tablet by mouth 2 times daily. cholecalciferol 50 MCG (2000 UNIT) tablet Sig: Take 1 tablet by mouth daily. furOSEmide 40 MG tablet Sig: Take 1 tablet by mouth daily. omeprazole [address] capsule Sig: Take 1 capsule by mouth daily. simvastatin 20 MG tablet Sig: Take 1 tablet by mouth at bedtime. Facility-Administered Medications: None Please feel free to contact me with any further questions. Name: Wu Mcnulty RPH Phone #: [phone] Date/Time: 03/09/2024 10:35 PM documented in this encounterOS[facility] Nurse Note* Nursing Notes - Ashlyn Brown RN - 03/11/2024 12:30 PM EST Preparing for discharge. Ride should be here soon. After Visit Summary reviewed with patient by Ashlyn, and all questions answered. RN reviewed what medications patient still needs for the day, patient verbalized understanding. IV dc'd with no difficulty and tip intact. Telemetry dc'd. VS stable at time of discharge. Patient being discharged to homeby car with friend. No patient belongings left at bedside. No further issues at time of discharge. [facility]01-03-2025 Miscellaneous Notes* Nursing Notes - Ashlyn Brown RN - 03/11/2024 12:30 PM EST Preparing for discharge. Ride should be here soon. After Visit Summary reviewed with patient by Ashlyn, and all questions answered. RN reviewed what medications patient still needs for the day, patient verbalized understanding. IV dc'd with no difficulty and tip intact. Telemetry dc'd. VS stable at time of discharge. Patient being discharged to homeby car with friend. No patient belongings left at bedside. No further issues at time of discharge. * Plan of Care - Ashlyn Brown RN - 03/11/2024 10:57 AM EST AV paced on tele. Hoping to go home today. Problem: Adult Inpatient Plan of Care Goal: Plan of Care Review Outcome: Progressing Vital signs completed per protocol. Monitoring intake and output q8h. Assessing pain q4h and medicate prn. Obtaining daily weights. Labs completed per protocol and will report any abnormal values to physician. Plan of care reviewed and updated with patient and patient demonstrates understanding. Problem: Dysrhythmia Goal: Normalized Cardiac Rhythm Outcome: Progressing Continuous cardiac monitoring as ordered. ECGs obtained per protocol. Electrolytes replaced with prn orders when appropriate. Antiarrhythmic given as scheduled. * Plan of Care - Kayce Nobles RN - 03/11/2024 12:26 AM EST Problem: Adult Inpatient Plan of Care Goal: Plan of Care Review Outcome: Progressing Plan of care reviewed: Vital signs will be obtained at least every 4 hrs, will be monitoring intake& output every 8 hrs, assessing pain every 4 hrs & medicate prn, hourly rounding, updated re: quiet @ [facility], am labs to be obtained & EKG prn. Problem: Dysrhythmia Goal: Normalized Cardiac Rhythm Outcome: Progressing Continuous cardiac monitoring as ordered. ECG s obtained per protocol. Electrolytes replaced with prn orders when appropriate. * Plan of Care - Nilda Barrios RN - 03/10/2024 6:15 PM EST Problem: Adult Inpatient Plan of Care Goal: Plan of Care Review Outcome: Progressing Note: Vital signs completed per protocol. Monitoring intake and output q8h. Assessing pain q4h and medicate prn. Obtaining daily weights. Labs completed per protocol and will report any abnormal values to physician. Plan of care reviewed and updated with patient and patient demonstrates understanding. Gen chgout, lead capped, new lead placed. CXR done, plan for interrogation in am then dc home. Problem: Dysrhythmia Goal: Normalized Cardiac Rhythm Outcome: Progressing * Plan of Care - Danielle Richardson RN - 03/09/2024 11:30 PM EST Problem: Adult Inpatient Plan of Care Goal: Plan of Care Review Outcome: Progressing Goal: Patient-Specific Goal (Individualized) Outcome: Progressing Goal: Absence of Hospital-Acquired Illness or Injury Outcome: Progressing Goal: Optimal Comfort and Wellbeing Outcome: Progressing * Plan of Care - Brook Escamilla RN - 03/07/2024 8:28 PM EST Problem: Adult Inpatient Plan of Care Goal: Plan of Care Review Outcome: Progressing Goal: Patient-Specific Goal (Individualized) Outcome: Progressing Goal: Absence of Hospital-Acquired Illness or Injury Outcome: Progressing Goal: Optimal Comfort and Wellbeing Outcome: Progressing Goal: Readiness for Transition of Care Outcome: Progressing [facility] Miscellaneous Notes* Nursing Notes - Ashlyn Brown RN - 03/11/2024 12:30 PM EST Preparing for discharge. Ride should be here soon. After Visit Summary reviewed with patient by Ashlyn, and all questions answered. RN reviewed what medications patient still needs for the day, patient verbalized understanding. IV dc'd with no difficulty and tip intact. Telemetry dc'd. VS stable at time of discharge. Patient being discharged to homeby car with friend. No patient belongings left at bedside. No further issues at time of discharge. * Plan of Care - Ashlyn Brown RN - 03/11/2024 10:57 AM EST AV paced on tele. Hoping to go home today. Problem: Adult Inpatient Plan of Care Goal: Plan of Care Review Outcome: Progressing Vital signs completed per protocol. Monitoring intake and output q8h. Assessing pain q4h and medicate prn. Obtaining daily weights. Labs completed per protocol and will report any abnormal values to physician. Plan of care reviewed and updated with patient and patient demonstrates understanding. Problem: Dysrhythmia Goal: Normalized Cardiac Rhythm Outcome: Progressing Continuous cardiac monitoring as ordered. ECGs obtained per protocol. Electrolytes replaced with prn orders when appropriate. Antiarrhythmic given as scheduled. * Plan of Care - Kayce Nobles RN - 03/11/2024 12:26 AM EST Problem: Adult Inpatient Plan of Care Goal: Plan of Care Review Outcome: Progressing Plan of care reviewed: Vital signs will be obtained at least every 4 hrs, will be monitoring intake& output every 8 hrs, assessing pain every 4 hrs & medicate prn, hourly rounding, updated re: [facility] @ [facility], am labs to be obtained & EKG prn. Problem: Dysrhythmia Goal: Normalized Cardiac Rhythm Outcome: Progressing Continuous cardiac monitoring as ordered. ECG s obtained per protocol. Electrolytes replaced with prn orders when appropriate. * Plan of Care - Nilda Barrios RN - 03/10/2024 6:15 PM EST Problem: Adult Inpatient Plan of Care Goal: Plan of Care Review Outcome: Progressing Note: Vital signs completed per protocol. Monitoring intake and output q8h. Assessing pain q4h and medicate prn. Obtaining daily weights. Labs completed per protocol and will report any abnormal values to physician. Plan of care reviewed and updated with patient and patient demonstrates understanding. Gen chgout, lead capped, new lead placed. CXR done, plan for interrogation in am then dc home. Problem: Dysrhythmia Goal: Normalized Cardiac Rhythm Outcome: Progressing * Plan of Care - Danielle Richardson RN - 03/09/2024 11:30 PM EST Problem: Adult Inpatient Plan of Care Goal: Plan of Care Review Outcome: Progressing Goal: Patient-Specific Goal (Individualized) Outcome: Progressing Goal: Absence of Hospital-Acquired Illness or Injury Outcome: Progressing Goal: Optimal Comfort and Wellbeing Outcome: Progressing * Plan of Care - Brook Escamilla RN - 03/07/2024 8:28 PM EST Problem: Adult Inpatient Plan of Care Goal: Plan of Care Review Outcome: Progressing Goal: Patient-Specific Goal (Individualized) Outcome: Progressing Goal: Absence of Hospital-Acquired Illness or Injury Outcome: Progressing Goal: Optimal Comfort and Wellbeing Outcome: Progressing Goal: Readiness for Transition of Care Outcome: Progressing documented in this encounterReg[facility] Hospital course Narrative* Jerri Talbot MD - 03/11/2024 12:17 PM EST Hospital Medicine Discharge Summary Patient: Tanvi Garza, : 1960, Admission Details Admit Date 03/07/2024 Discharge Date 03/11/2024 Inpatient Days 4 Primary Diagnoses Need for CONTRACT PARALEGAL-D upgrade Hypomagnesemia Action Items Follow-up in device clinic scheduled in [place] Summary of Hospitalization Dear Doctors, I recently had the opportunity to care for Tanvi Garza during her recent hospital stay at [facility]. As you may know, Ms. Tanvi Garza is a 63 y.o. female with a history of NICM / HFrEF (EF 25% 11/2023) s/p CONTRACT PARALEGAL-D (2008), HTN, and COPD who presented as a direct admission from EP clinic for management of her cardiac device that was found to be at recommended replacement time. Cardiac device at recommended replacement time Pt had a CONTRACT PARALEGAL-D placed in 2008 for low EF that was found to be at the recommended replacement time, or elective replacement indicator. - EP consulted - S/p venogram 03/07 per EP that showed patent L axillary and subclavian veins -E P consulted, s/p successful implantation of new LBBA pacing lead to mid-RV septum and chronic CSlead capped on 03/10 - Postoperative chest x-ray did not show evidence of a pneumothorax. - Device Clinic appointment scheduled with an outside clinic-[place] Chronic NICM / HFrEF s/p CONTRACT PARALEGAL-D 2008 HTN EF 25% on TTE 11/2023 - Hold Lasix on 1/2 am, resumed at discharge - Held losartan 1/1 pm (needs held for 24 hours prior to EP procedure), resumed at discharge - Continue Coreg Hypomagnesemia - Magnesium level 0.6 on presentation 03/07/24, replaced PO and IV - Mg level >2 on day of discharge BMI: 18.1 Underweight Upon discharge the patient's code was Full Code Please see the remainder of this document for relevant data from this admission as well as the patient's discharge instructions and follow-up appointments. An electronic copy of the patient's recordscan be obtained via [facility] at [email or web address] It has been my pleasure participating in this patient's care. Please contact me with any questions or concerns regarding her hospital stay. The total time of discharge was 25 minutes. Sincerely, Jerri Talbot MD Division of Hospital Medicine Relevant Data from this Admission Temp: [97.4 F (36.3 C)-98 F (36.7 C)] 97.8 F (36.6 C) Pulse (Heart Rate): [52-76] 60 Resp Rate: [16-18] 16 BP: (113-144)/(56-69) 131/63 O2 Sat (%): [96 %-98 %] 98 % Weight: [47.1 kg (103 lb 14.4 oz)] 47.1 kg (103 lb 14.4 oz) Physical Exam Gen: Alert, Awake, NAD Eyes: PERRLA, EOMI, no icterus ENT: MMM, trachea midline Resp: CTA & P, normal respiratory effort Cardio: RRR, normal S1, S2, no M/R/G. No JOSÉ MIGUEL. GI: S/NT/ND, NABS MS: No joint effusions or erythema Skin: No jaundice or rash Neuro: time clock inspector 3-7, 9-11 intact and equal. Psych: Ox3, appropriate affect and cognition Recent Labs 03/10/24 0512 03/11/24 0515 WBC 5.82 -- HGB 13.1 -- PLATELET 163 166 SODIUM 137 137 POTASSIUM 3.8 4.8 CO2 29 28 ANIONGAP 12 11 BUN 16 14 CREATSERUM 0.91 0.90 MAGNESIUM 1.4* 2.6 INR 1.1 -- PTT 25.7 -- Patient Instructions No future appointments. No follow-up provider specified. Medication List for when you go home CONTINUE taking these medications Morning Afternoon Evening Bedtime As Needed Albuterol (2.5 MG/3ML) 0.083% inhalation solution Take 3 mL by nebulization every 4 hours as needed. Commonly known as: PROVENTIL carveDILOL 12.5 MG TABS Take 1 tablet by mouth 2 times daily. Commonly known as: COREG Last time this was given: 12.5 mg on March 11, 2024 6:30 AM cholecalciferol 50 MCG (2000 UNIT) TABS Take 1 tablet by mouth daily. Commonly known as: VITAMIN D3 Last time this was given: 2,000 Units on March 11, 2024 6:31 AM Estradiol 0.5 MG TABS Take 1 tablet by mouth daily. Commonly known as: ESTRACE Last time this was given: 0.5 mg on March 11, 2024 6:30 AM furOSEmide 40 MG TABS Take 1 tablet by mouth daily. Commonly known as: LASIX Last time this was given: 40 mg on March 09, 2024 6:11 AM LORazepam 1 MG TABS Take 1 tablet by mouth daily as needed for Anxiety. Commonly known as: ATIVAN Last time this was given: 1 mg on March 11, 2024 9:52 AM Losartan 25 MG TABS Take 1 tablet by mouth every evening. Commonly known as: COZAAR Last time this was given: 25 mg on March 08, 2024 5:35 PM Magnesium Oxide 400 MG CAPS Take 1 capsule by mouth 3 (three) times a day. Last time this was given: Ask your nurse or doctor omeprazole [address] capsule Take 1 capsule by mouth daily. Commonly known as: PRILOSEC Potassium Chloride ER 20 MEQ tab ER tablet Take 1 tablet by mouth 2 times daily. Last time this was given: Ask your nurse or doctor simvastatin 20 MG TABS Take 1 tablet by mouth at bedtime. Commonly known as: ZOCOR documented in this encounterReg[facility]25 Plan of care note* Plan of Care - Ashlyn Brown RN - 03/11/2024 10:57 AM EST AV paced on tele. Hoping to go home today. Problem: Adult Inpatient Plan of Care Goal: Plan of Care Review Outcome: Progressing Vital signs completed per protocol. Monitoring intake and output q8h. Assessing pain q4h and medicate prn. Obtaining daily weights. Labs completed per protocol and will report any abnormal values to physician. Plan of care reviewed and updated with patient and patient demonstrates understanding. Problem: Dysrhythmia Goal: Normalized Cardiac Rhythm Outcome: Progressing Continuous cardiac monitoring as ordered. ECGs obtained per protocol. Electrolytes replaced with prn orders when appropriate. Antiarrhythmic given as scheduled. [facility]01-03-2025 Plan of care note* Plan of Care - Kayce Nobles RN - 03/11/2024 12:26 AM EST Problem: Adult Inpatient Plan of Care Goal: Plan of Care Review Outcome: Progressing Plan of care reviewed: Vital signs will be obtained at least every 4 hrs, will be monitoring intake& output every 8 hrs, assessing pain every 4 hrs & medicate prn, hourly rounding, updated re: quiet @ [facility], am labs to be obtained & EKG prn. Problem: Dysrhythmia Goal: Normalized Cardiac Rhythm Outcome: Progressing Continuous cardiac monitoring as ordered. ECG s obtained per protocol. Electrolytes replaced with prn orders when appropriate. [facility]01-02-2025 Plan of care note* Plan of Care - Nilda Barrios RN - 03/10/2024 6:15 PM EST Problem: Adult Inpatient Plan of Care Goal: Plan of Care Review Outcome: Progressing Note: Vital signs completed per protocol. Monitoring intake and output q8h. Assessing pain q4h and medicate prn. Obtaining daily weights. Labs completed per protocol and will report any abnormal values to physician. Plan of care reviewed and updated with patient and patient demonstrates understanding. Gen chgout, lead capped, new lead placed. CXR done, plan for interrogation in am then dc home. Problem: Dysrhythmia Goal: Normalized Cardiac Rhythm Outcome: Progressing [facility]01-01-2025 Plan of care note* Plan of Care - Danielle Richardson RN - 03/09/2024 11:30 PM EST Problem: Adult Inpatient Plan of Care Goal: Plan of Care Review Outcome: Progressing Goal: Patient-Specific Goal (Individualized) Outcome: Progressing Goal: Absence of Hospital-Acquired Illness or Injury Outcome: Progressing Goal: Optimal Comfort and Wellbeing Outcome: Progressing [facility]12-31-2024 Hospital Discharge instructions* Discharge Instructions* Porsche Elise RN - 03/08/2024 10:40 AM EST Patient Experience Survey Reminder You may receive a survey in the mail within a few weeks regarding your hospitalization. This helps us to improve the care and services we provide at [facility]. We truly appreciate you taking the time to fill this out. We particularly welcome any specific comments you may have (good or bad!) regarding your experienceat [facility] so that we may use them to continue to strive towards excellence for our patients. [facility] Hospital Discharge instructions* Discharge Instructions* Porsche Elise RN - 03/08/2024 10:40 AM EST Patient Experience Survey Reminder You may receive a survey in the mail within a few weeks regarding your hospitalization. This helps us to improve the care and services we provide at [facility]. We truly appreciate you taking the time to fill this out. We particularly welcome any specific comments you may have (good or bad!) regarding your experienceat [facility] so that we may use them to continue to strive towards excellence for our patients. documented [facility] this encounter[facility] Plan of care note* Plan of Care - Brook Escamilla RN - 03/07/2024 8:28 PM EST Problem: Adult Inpatient Plan of Care Goal: Plan of Care Review Outcome: Progressing Goal: Patient-Specific Goal (Individualized) Outcome: Progressing Goal: Absence of Hospital-Acquired Illness or Injury Outcome: Progressing Goal: Optimal Comfort and Wellbeing Outcome: Progressing Goal: Readiness for Transition of Care Outcome: Progressing [facility]12[facility] History and physical note* Thai Miranda MD - 03/07/2024 3:57 PM EST Hospital Medicine Admission History & Physical Patient: Tanvi Garza, : 1960, Date of face to face patient encounter: 03/07/2024 Impression / Plan 63yo WF with pmh of S/p PPM, HFrEF EF 25%, HTN, COPD who is admitted due to PPM at [facility]. S/p PPM at [facility]: - EP consulted. Venogram ordered - pending results may need new lead vs. High risk extraction and reimplant - NPO at MD in case of procedure tomorrow. HFrEF EF 25%: appears euvolemic on exam. Continue home dose lasix, coreg, losartan HTN: well controlled. Continue losartan, coreg Dyslipidemia: simvastatin not on formulary COPD: duonebs PRN GERD: continue PPI Mood d/o: continue ativan PRN Underweight: There is no height or weight on file to calculate BMI. Tobacco Abuse: in remission H/o Uterine/Vulvar Ca Vitamin D Deficiency: continue supplement HRT: continue home estradiol Hypokalemia/hypomagnesemia: continue home supplementation Diet: cardiac diet. NPO at MD in case of procedure. Ppx: lovenox Patient is Full Code Dispo: home Chief Complaint PPM at [facility] History of Presenting Illness Ms. Garza is a 63yo WF with pmh of S/p PPM, HFrEF EF 25%, HTN, COPD who is admitted due to PPM at [facility]. Was seen in EP clinic today and directly admitted to address. She otherwise has no acute complaints. Denies fevers, chills, nausea, vomiting, chest pain/pressure, difficulty breathing, wheezing, coughing, abdominal pain, difficulty with urination or constipation. ROS completed, please see above, otherwise negative. History Past Medical History: Diagnosis Date Anxiety CAD (coronary artery disease) COPD (chronic obstructive pulmonary disease) Depression Diabetes mellitus Essential hypertension, benign Hypercalcemia Hypomagnesemia Nonischemic cardiomyopathy Pacemaker Uterine cancer Vulvar cancer 2021 Past Surgical History: Procedure Laterality Date VULVAR SURGERY 12/23/2021 Cancer removal CHOLECYSTECTOMY PACEMAKER PLACEMENT PARTIAL HYSTERECTOMY Social History she reports that she has quit smoking. Her smoking use included cigarettes. She does not have any smokeless tobacco history on file. She reports that she does not drink alcohol and does not use drugs. Family History Reviewed significant for DM, HTN Medications / Allergies Prior to Admission Medications Prescriptions Albuterol (2.5 MG/3ML) 0.083% inhalation solution Sig: Take 3 mL by nebulization every 4 hours as needed. Estradiol 0.5 MG tablet Sig: Take 1 tablet by mouth daily. LORazepam 1 MG tablet Sig: Take 1 tablet by mouth daily as needed for Anxiety. Losartan 25 MG tablet Sig: Take 1 tablet by mouth every evening. Magnesium Oxide 400 MG capsule Sig: Take 1 capsule by mouth 3 (three) times a day. Potassium Chloride ER 20 MEQ Tab CR tablet Sig: Take 1 tablet by mouth 2 times daily. carveDILOL 12.5 MG tablet Sig: Take 1 tablet by mouth 2 times daily. cholecalciferol 50 MCG (2000 UNIT) tablet Sig: Take 1 tablet by mouth daily. furOSEmide 40 MG tablet Sig: Take 1 tablet by mouth daily. omeprazole [address] capsule Sig: Take 1 capsule by mouth daily. simvastatin 20 MG tablet Sig: Take 1 tablet by mouth at bedtime. Facility-Administered Medications: None Allergies Allergen Reactions Sulfamethoxazole Itching Amoxicillin Nausea Only Celecoxib Dyspepsia Celestial Seasonings Soothers Chlorhexidine Rash Ciprofloxacin Hcl Itching After script Nov 2010 Citalopram Other Reaction(s): Mental Status Change Codeine Hives Cyclobenzaprine Dyspepsia gi upset, bloating Diazepam Hives Doxycycline Other Reaction(s): Intolerance HEART RACING Hydrocodone-Acetaminophen Dyspepsia Hydrocodone-Guaifenesin Other Reaction(s): Mental Status Change Lisinopril Cough Meloxicam Other Reaction(s): Intolerance Abdominal pain, bloating and hartburn. Methocarbamol Rash Nabumetone Rash Naproxen Dyspepsia Penicillins Hives and Itching Pramipexole Other Reaction(s): Intolerance Ranitidine Hives Ropinirole Rash Objective Findings Smoking Status Former Physical Exam Gen: Alert, Awake, NAD, thin Eyes: PERRLA, EOMI, no icterus ENT: MMM, trachea midline Resp: CTA, normal respiratory effort, occassional wheezing Cardio: RRR, normal S1, S2, no M/R/G. No JOSÉ MIGUEL. GI: S/NT/ND, NABS MS: No joint effusions or erythema Skin: No jaundice or rash Neuro: time clock inspector 3-7, 9-11 intact and equal. Strength grossly equal in muscle groups of the bilateral UEsand LEs. Psych: Ox3, appropriate affect and cognition Data Review EKG personally reviewed, significant for v paced rhythm [facility]12-30-2024 History and physical note* Thai Miranda MD - 03/07/2024 3:57 PM EST Hospital Medicine Admission History & Physical Patient: Tanvi Garza, : 1960, Date of face to face patient encounter: 03/07/2024 Impression / Plan 63yo WF with pmh of S/p PPM, HFrEF EF 25%, HTN, COPD who is admitted due to PPM at [facility]. S/p PPM at [facility]: - EP consulted. Venogram ordered - pending results may need new lead vs. High risk extraction and reimplant - NPO at MD in case of procedure tomorrow. HFrEF EF 25%: appears euvolemic on exam. Continue home dose lasix, coreg, losartan HTN: well controlled. Continue losartan, coreg Dyslipidemia: simvastatin not on formulary COPD: duonebs PRN GERD: continue PPI Mood d/o: continue ativan PRN Underweight: There is no height or weight on file to calculate BMI. Tobacco Abuse: in remission H/o Uterine/Vulvar Ca Vitamin D Deficiency: continue supplement HRT: continue home estradiol Hypokalemia/hypomagnesemia: continue home supplementation Diet: cardiac diet. NPO at MD in case of procedure. Ppx: lovenox Patient is Full Code Dispo: home Chief Complaint PPM at [facility] History of Presenting Illness Ms. Garza is a 63yo WF with pmh of S/p PPM, HFrEF EF 25%, HTN, COPD who is admitted due to PPM at [facility]. Was seen in EP clinic today and directly admitted to address. She otherwise has no acute complaints. Denies fevers, chills, nausea, vomiting, chest pain/pressure, difficulty breathing, wheezing, coughing, abdominal pain, difficulty with urination or constipation. ROS completed, please see above, otherwise negative. History Past Medical History: Diagnosis Date Anxiety CAD (coronary artery disease) COPD (chronic obstructive pulmonary disease) Depression Diabetes mellitus Essential hypertension, benign Hypercalcemia Hypomagnesemia Nonischemic cardiomyopathy Pacemaker Uterine cancer Vulvar cancer 2021 Past Surgical History: Procedure Laterality Date VULVAR SURGERY 12/23/2021 Cancer removal CHOLECYSTECTOMY PACEMAKER PLACEMENT PARTIAL HYSTERECTOMY Social History she reports that she has quit smoking. Her smoking use included cigarettes. She does not have any smokeless tobacco history on file. She reports that she does not drink alcohol and does not use drugs. Family History Reviewed significant for DM, HTN Medications / Allergies Prior to Admission Medications Prescriptions Albuterol (2.5 MG/3ML) 0.083% inhalation solution Sig: Take 3 mL by nebulization every 4 hours as needed. Estradiol 0.5 MG tablet Sig: Take 1 tablet by mouth daily. LORazepam 1 MG tablet Sig: Take 1 tablet by mouth daily as needed for Anxiety. Losartan 25 MG tablet Sig: Take 1 tablet by mouth every evening. Magnesium Oxide 400 MG capsule Sig: Take 1 capsule by mouth 3 (three) times a day. Potassium Chloride ER 20 MEQ Tab CR tablet Sig: Take 1 tablet by mouth 2 times daily. carveDILOL 12.5 MG tablet Sig: Take 1 tablet by mouth 2 times daily. cholecalciferol 50 MCG (2000 UNIT) tablet Sig: Take 1 tablet by mouth daily. furOSEmide 40 MG tablet Sig: Take 1 tablet by mouth daily. omeprazole [address] capsule Sig: Take 1 capsule by mouth daily. simvastatin 20 MG tablet Sig: Take 1 tablet by mouth at bedtime. Facility-Administered Medications: None Allergies Allergen Reactions Sulfamethoxazole Itching Amoxicillin Nausea Only Celecoxib Dyspepsia Celestial Seasonings Soothers Chlorhexidine Rash Ciprofloxacin Hcl Itching After script Nov 2010 Citalopram Other Reaction(s): Mental Status Change Codeine Hives Cyclobenzaprine Dyspepsia gi upset, bloating Diazepam Hives Doxycycline Other Reaction(s): Intolerance HEART RACING Hydrocodone-Acetaminophen Dyspepsia Hydrocodone-Guaifenesin Other Reaction(s): Mental Status Change Lisinopril Cough Meloxicam Other Reaction(s): Intolerance Abdominal pain, bloating and hartburn. Methocarbamol Rash Nabumetone Rash Naproxen Dyspepsia Penicillins Hives and Itching Pramipexole Other Reaction(s): Intolerance Ranitidine Hives Ropinirole Rash Objective Findings Smoking Status Former Physical Exam Gen: Alert, Awake, NAD, thin Eyes: PERRLA, EOMI, no icterus ENT: MMM, trachea midline Resp: CTA, normal respiratory effort, occassional wheezing Cardio: RRR, normal S1, S2, no M/R/G. No JOSÉ MIGUEL. GI: S/NT/ND, NABS MS: No joint effusions or erythema Skin: No jaundice or rash Neuro: time clock inspector 3-7, 9-11 intact and equal. Strength grossly equal in muscle groups of the bilateral UEsand LEs. Psych: Ox3, appropriate affect and cognition Data Review EKG personally reviewed, significant for v paced rhythm [facility] History and physical note* Thai Miranda MD - 03/07/2024 3:57 PM EST Hospital Medicine Admission History & Physical Patient: Tanvi Garza, : 1960, Date of face to face patient encounter: 03/07/2024 Impression / Plan 63yo WF with pmh of S/p PPM, HFrEF EF 25%, HTN, COPD who is admitted due to PPM at [facility]. S/p PPM at [facility]: - EP consulted. Venogram ordered - pending results may need new lead vs. High risk extraction and reimplant - NPO at [facility] in case of procedure tomorrow. HFrEF EF 25%: appears euvolemic on exam. Continue home dose lasix, coreg, losartan HTN: well controlled. Continue losartan, coreg Dyslipidemia: simvastatin not on formulary COPD: duonebs PRN GERD: continue PPI Mood d/o: continue ativan PRN Underweight: There is no height or weight on file to calculate BMI. Tobacco Abuse: in remission H/o Uterine/Vulvar Ca Vitamin D Deficiency: continue supplement HRT: continue home estradiol Hypokalemia/hypomagnesemia: continue home supplementation Diet: cardiac diet. NPO at [facility] in case of procedure. Ppx: lovenox Patient is Full Code Dispo: home Chief Complaint PPM at [facility] History of Presenting Illness Ms. Garza is a 63yo WF with pmh of S/p PPM, HFrEF EF 25%, HTN, COPD who is admitted due to PPM at [facility]. Was seen in EP clinic today and directly admitted to address. She otherwise has no acute complaints. Denies fevers, chills, nausea, vomiting, chest pain/pressure, difficulty breathing, wheezing, coughing, abdominal pain, difficulty with urination or constipation. ROS completed, please see above, otherwise negative. History Past Medical History: Diagnosis Date Anxiety CAD (coronary artery disease) COPD (chronic obstructive pulmonary disease) Depression Diabetes mellitus Essential hypertension, benign Hypercalcemia Hypomagnesemia Nonischemic cardiomyopathy Pacemaker Uterine cancer Vulvar cancer 2021 Past Surgical History: Procedure Laterality Date VULVAR SURGERY 12/23/2021 Cancer removal CHOLECYSTECTOMY PACEMAKER PLACEMENT PARTIAL HYSTERECTOMY Social History she reports that she has quit smoking. Her smoking use included cigarettes. She does not have any smokeless tobacco history on file. She reports that she does not drink alcohol and does not use drugs. Family History Reviewed significant for DM, HTN Medications / Allergies Prior to Admission Medications Prescriptions Albuterol (2.5 MG/3ML) 0.083% inhalation solution Sig: Take 3 mL by nebulization every 4 hours as needed. Estradiol 0.5 MG tablet Sig: Take 1 tablet by mouth daily. LORazepam 1 MG tablet Sig: Take 1 tablet by mouth daily as needed for Anxiety. Losartan 25 MG tablet Sig: Take 1 tablet by mouth every evening. Magnesium Oxide 400 MG capsule Sig: Take 1 capsule by mouth 3 (three) times a day. Potassium Chloride ER 20 MEQ Tab CR tablet Sig: Take 1 tablet by mouth 2 times daily. carveDILOL 12.5 MG tablet Sig: Take 1 tablet by mouth 2 times daily. cholecalciferol 50 MCG (2000 UNIT) tablet Sig: Take 1 tablet by mouth daily. furOSEmide 40 MG tablet Sig: Take 1 tablet by mouth daily. omeprazole [address] capsule Sig: Take 1 capsule by mouth daily. simvastatin 20 MG tablet Sig: Take 1 tablet by mouth at bedtime. Facility-Administered Medications: None Allergies Allergen Reactions Sulfamethoxazole Itching Amoxicillin Nausea Only Celecoxib Dyspepsia Celestial Seasonings Soothers Chlorhexidine Rash Ciprofloxacin Hcl Itching After script Nov 2010 Citalopram Other Reaction(s): Mental Status Change Codeine Hives Cyclobenzaprine Dyspepsia gi upset, bloating Diazepam Hives Doxycycline Other Reaction(s): Intolerance HEART RACING Hydrocodone-Acetaminophen Dyspepsia Hydrocodone-Guaifenesin Other Reaction(s): Mental Status Change Lisinopril Cough Meloxicam Other Reaction(s): Intolerance Abdominal pain, bloating and hartburn. Methocarbamol Rash Nabumetone Rash Naproxen Dyspepsia Penicillins Hives and Itching Pramipexole Other Reaction(s): Intolerance Ranitidine Hives Ropinirole Rash Objective Findings Smoking Status Former Physical Exam Gen: Alert, Awake, NAD, thin Eyes: PERRLA, EOMI, no icterus ENT: MMM, trachea midline Resp: CTA, normal respiratory effort, occassional wheezing Cardio: RRR, normal S1, S2, no M/R/G. No JOSÉ MIGUEL. GI: S/NT/ND, NABS MS: No joint effusions or erythema Skin: No jaundice or rash Neuro: time clock inspector 3-7, 9-11 intact and equal. Strength grossly equal in muscle groups of the bilateral UEsand LEs. Psych: Ox3, appropriate affect and cognition Data Review EKG personally reviewed, significant for v paced rhythm documented [facility] Consult note* Eddy Lr MD - 03/07/2024 2:41 PM ESTAssociated Order(s): IP CONSULT TO CARDIOLOGY - EP Images from the original note were not included. Cardiac Electrophysiology Consultation Patient Name: Tanvi Garza Date of Consult: 03/07/2024 Reason for Consultation: permanent pacemaker at [facility] IMPRESSION & RECOMMENDATIONS: Tanvi Garza is a 63 y.o. female who was seen by the EP Consult Service on 03/07/2024. We are asked to assist in management of an permanent pacemaker at [facility] IMPRESSION Permanent pacemaker at [facility] Status post CONTRACT PARALEGAL-D implant RECOMMENDATIONS We will obtain venogram today to assess for vein patency. If the vein is patent, it will be relatively straightforward to implant a new lead. If it is not, we will have to consider inpatient device extraction vs tunneling line to alternative venipuncture site. Given the age of the device, this represents a high-risk extraction. We will ensure pre-operative testing has been ordered/completed (ROSALIO, CT), T&S and will consult cardiac surgery to consider providing surgical backup for the procedure. Eddy Lr MD PGY 9 EP Fellow [phone] This consult was discussed with Dr. Engle, EP attending physician. These recommendations are considered preliminary until cosigned by the attending. If you have any questions or need any further information, please feel free to contact the EP Consult Service. Thank you for allowing us to participate in the care of Tanvi Garza. HPI: Tanvi Garza is a 63 y.o. female with a history of COPD, hypertension, CAD and sick sinus syndrome status post pacemaker implantation in 2008. Since that time, she has followed with [facility]. Her LVEF has fluctuated but was most recently 25% (was previously as high as 40%). She has also been given GDMT for CHF. Her capture threshold has gradually risen and is now 6.5 V which occasionally provokes diaphragmatic stimulation. She was admitted 03/07/2024 from EP clinic for inpatient evaluation of CONTRACT PARALEGAL-D system and possible intervention. She denies ever receiving a shock from her device. PAST MEDICAL HISTORY: PAST MEDICAL HISTORY She has a past medical history of Anxiety, CAD (coronary artery disease), COPD (chronic obstructivepulmonary disease), Depression, Diabetes mellitus, Essential hypertension, benign, Hypercalcemia, Hypomagnesemia, Nonischemic cardiomyopathy, Pacemaker, Uterine cancer, and Vulvar cancer (2021). SOCIAL HISTORY She reports that she has quit smoking. Her smoking use included cigarettes. She does not have any smokeless tobacco history on file. She reports that she does not drink alcohol and does not use drugs. FAMILY HISTORY Her family history is not on file. She She indicated that her mother is alive. She indicated that her brother is alive. PAST SURGICAL HISTORY Her has a past surgical history that includes pacemaker placement; partial hysterectomy; cholecystectomy; and vulvar surgery (12/23/2021). ALLERGIES Allergies Allergen Reactions Cholecalciferol [Vitamin D] Rash Sulfamethoxazole Itching Acetaminophen Hives Amoxicillin Nausea Only Celecoxib Dyspepsia Celestial Seasonings Soothers Chlorhexidine Rash Ciprofloxacin Hcl Itching After script Nov 2010 Citalopram Other Reaction(s): Mental Status Change Codeine Hives Cyclobenzaprine Dyspepsia gi upset, bloating Diazepam Hives Doxycycline Other Reaction(s): Intolerance HEART RACING Hydrocodone-Acetaminophen Dyspepsia Hydrocodone-Guaifenesin Other Reaction(s): Mental Status Change Lisinopril Cough Meloxicam Other Reaction(s): Intolerance Abdominal pain, bloating and hartburn. Methocarbamol Rash Nabumetone Rash Naproxen Dyspepsia Omeprazole Dyspepsia Penicillins Hives and Itching Pramipexole Other Reaction(s): Intolerance Ranitidine Hives Ropinirole Rash HOME MEDICATIONS Medications Prior to Admission Medication Sig Dispense Refill Last Dose Albuterol (2.5 MG/3ML) 0.083% inhalation solution 3 mL. carveDILOL 12.5 MG tablet Take 1 tablet by mouth 2 times daily. cholecalciferol 50 MCG (2000 UNIT) tablet Take 1 tablet by mouth daily. Estradiol 0.5 MG tablet Take 1 tablet by mouth daily. LORazepam 1 MG tablet Take 1 tablet by mouth daily as needed for Anxiety. Losartan 25 MG tablet Take 1 tablet by mouth daily. Magnesium Oxide 400 MG capsule Take 1 capsule by mouth 3 (three) times a day. omeprazole [address] capsule Take 1 capsule by mouth daily. Potassium Chloride ER 20 MEQ Tab CR tablet Take 1 tablet by mouth daily. simvastatin 20 MG tablet Take 1 tablet by mouth at bedtime. CURRENT MEDICATIONS REVIEW OF SYSTEMS: General: denies fevers, chills, malaise, weight loss, night sweats HEENT: denies headache, vision changes, hearing changes, rhinorrhea, sore throat Respiratory: denies shortness of breath, cough, dyspnea on exertion Cardiovascular: denies palpitations, chest pain, orthopnea, edema GI/: denies nausea, vomiting, abdominal pain, diarrhea, dysuria, hematuria Extremities: denies myalgias, edema Skin: no rash Neuro: no change in sensation, loss of consciousness Psych: denies anxiety, depression, substance abuse PHYSICAL EXAM: No intake or output data in the 24 hours ending 03/07/24 1441 Pulse (Heart Rate): [68] 68 BP: (116)/(50) 116/50 Weight: [47.7 kg (105 lb 3.2 oz)] 47.7 kg (105 lb 3.2 oz) Physical Exam General appearance - alert and oriented, and in no distress. Neck - supple, normal JVP. Carotids - normal upstroke, no bruits. Chest - clear to auscultation, no wheezing, rales or rhonchi, not in acute resp distress. Heart - normal rate, regular rhythm, normal s1/s2, no murmurs, rubs, or gallops Peripheral vascular: peripheral pulses normal Abdomen - soft, non-tender, non-distended, normal bowel sounds. Extremities - warm and well perfused. no edema. Skin - normal color and turgor, no generalized rash. Psych - mood appropriate. Neuro - mentation intact, moving all extremities independently. DATA REVIEWED: EKG (03/07/2024): DEAL ARCHITECT rhythm Telemetry Data: None yet No results found for: SODIUM, POTASSIUM, GLUCOSE, CHLORIDE, CO2, BUN, CREATSERUM No results found for: WBC, WBCCOUNT, WBCFETAL, HGB, HCT, PLATELET, MCV No results found for: TROP, BNP No results found for: TSH Transthoracic echocardiogram (12/04/23): Associated attestation - Darren Engle MD - 03/07/2024 4:30 PM EST I have personally interviewed and examined this patient with the SUPERVISOR FINISHING ROOM/Fellow/Resident. I have reviewed the history and examination and edited these in the attached note. I agree with themedical decision and components of the note as edited by me. This is a very pleasant 63-year-old female who has a history a biventricular AICD. She [facility]. She had been doing relatively well and she takes care of her own ADLs along with her 's. She had some degree of response to CONTRACT PARALEGAL D with an ejection fraction improvement from 25% 40%. It has been noted that her capture threshold of her left ventricular lead hasgradually risen and is now 6.5 volts which is also causing some diaphragmatic stimulation thereforewhen she was seen in the electrophysiology clinic today it was advised that she be admitted for a venogram. The risks and benefits of a venogram were explained. I also explained the possibility of a lead upgrade and be higher chance of significant complications from lead extraction especially given her BMIand the chronicity of the lead and she understands. We will 1st obtain a venogram we will make a decision on whether we could consider implanting a left bundle lead through the left axillary vein which would be the most ideal scenario. Dr. Katie Engle Assistant Manager Quality Managementwafer machine operator Division of Cardiac Electrophysiology [facility] Work Phone: [phone]) 570-966112-30-2024 Consult note* Eddy Lr MD - 03/07/2024 2:41 PM ESTAssociated Order(s): IP CONSULT TO CARDIOLOGY - EP Images from the original note were not included. Cardiac Electrophysiology Consultation Patient Name: Tanvi Garza Date of Consult: 03/07/2024 Reason for Consultation: permanent pacemaker at [facility] IMPRESSION & RECOMMENDATIONS: Tanvi Garza is a 63 y.o. female who was seen by the EP Consult Service on 03/07/2024. We are asked to assist in management of an permanent pacemaker at [facility] IMPRESSION Permanent pacemaker at [facility] Status post CONTRACT PARALEGAL-D implant RECOMMENDATIONS We will obtain venogram today to assess for vein patency. If the vein is patent, it will be relatively straightforward to implant a new lead. If it is not, we will have to consider inpatient device extraction vs tunneling line to alternative venipuncture site. Given the age of the device, this represents a high-risk extraction. We will ensure pre-operative testing has been ordered/completed (ROSALIO, CT), T&S and will consult cardiac surgery to consider providing surgical backup for the procedure. Eddy Lr MD PGY 9 EP Fellow [phone] This consult was discussed with Dr. Engle, EP attending physician. These recommendations are considered preliminary until cosigned by the attending. If you have any questions or need any further information, please feel free to contact the EP Consult Service. Thank you for allowing us to participate in the care of Tanvi Garza. HPI: Tanvi Garza is a 63 y.o. female with a history of COPD, hypertension, CAD and sick sinus syndrome status post pacemaker implantation in 2008. Since that time, [facility] Her LVEF has fluctuated but was most recently 25% (was previously as high as 40%). She has also been given GDMT for CHF. Her capture threshold has gradually risen and is now 6.5 V which occasionally provokes diaphragmatic stimulation. She was admitted 03/07/2024 from EP clinic for inpatient evaluation of CONTRACT PARALEGAL-D system and possible intervention. She denies ever receiving a shock from her device. PAST MEDICAL HISTORY: PAST MEDICAL HISTORY She has a past medical history of Anxiety, CAD (coronary artery disease), COPD (chronic obstructivepulmonary disease), Depression, Diabetes mellitus, Essential hypertension, benign, Hypercalcemia, Hypomagnesemia, Nonischemic cardiomyopathy, Pacemaker, Uterine cancer, and Vulvar cancer (2021). SOCIAL HISTORY She reports that she has quit smoking. Her smoking use included cigarettes. She does not have any smokeless tobacco history on file. She reports that she does not drink alcohol and does not use drugs. FAMILY HISTORY Her family history is not on file. She She indicated that her mother is alive. She indicated that her brother is alive. PAST SURGICAL HISTORY Her has a past surgical history that includes pacemaker placement; partial hysterectomy; cholecystectomy; and vulvar surgery (12/23/2021). ALLERGIES Allergies Allergen Reactions Cholecalciferol [Vitamin D] Rash Sulfamethoxazole Itching Acetaminophen Hives Amoxicillin Nausea Only Celecoxib Dyspepsia Celestial Seasonings Soothers Chlorhexidine Rash Ciprofloxacin Hcl Itching After script Nov 2010 Citalopram Other Reaction(s): Mental Status Change Codeine Hives Cyclobenzaprine Dyspepsia gi upset, bloating Diazepam Hives Doxycycline Other Reaction(s): Intolerance HEART RACING Hydrocodone-Acetaminophen Dyspepsia Hydrocodone-Guaifenesin Other Reaction(s): Mental Status Change Lisinopril Cough Meloxicam Other Reaction(s): Intolerance Abdominal pain, bloating and hartburn. Methocarbamol Rash Nabumetone Rash Naproxen Dyspepsia Omeprazole Dyspepsia Penicillins Hives and Itching Pramipexole Other Reaction(s): Intolerance Ranitidine Hives Ropinirole Rash HOME MEDICATIONS Medications Prior to Admission Medication Sig Dispense Refill Last Dose Albuterol (2.5 MG/3ML) 0.083% inhalation solution 3 mL. carveDILOL 12.5 MG tablet Take 1 tablet by mouth 2 times daily. cholecalciferol 50 MCG (2000 UNIT) tablet Take 1 tablet by mouth daily. Estradiol 0.5 MG tablet Take 1 tablet by mouth daily. LORazepam 1 MG tablet Take 1 tablet by mouth daily as needed for Anxiety. Losartan 25 MG tablet Take 1 tablet by mouth daily. Magnesium Oxide 400 MG capsule Take 1 capsule by mouth 3 (three) times a day. omeprazole [address] capsule Take 1 capsule by mouth daily. Potassium Chloride ER 20 MEQ Tab CR tablet Take 1 tablet by mouth daily. simvastatin 20 MG tablet Take 1 tablet by mouth at bedtime. CURRENT MEDICATIONS REVIEW OF SYSTEMS: General: denies fevers, chills, malaise, weight loss, night sweats HEENT: denies headache, vision changes, hearing changes, rhinorrhea, sore throat Respiratory: denies shortness of breath, cough, dyspnea on exertion Cardiovascular: denies palpitations, chest pain, orthopnea, edema GI/: denies nausea, vomiting, abdominal pain, diarrhea, dysuria, hematuria Extremities: denies myalgias, edema Skin: no rash Neuro: no change in sensation, loss of consciousness Psych: denies anxiety, depression, substance abuse PHYSICAL EXAM: No intake or output data in the 24 hours ending 03/07/24 1441 Pulse (Heart Rate): [68] 68 BP: (116)/(50) 116/50 Weight: [47.7 kg (105 lb 3.2 oz)] 47.7 kg (105 lb 3.2 oz) Physical Exam General appearance - alert and oriented, and in no distress. Neck - supple, normal JVP. Carotids - normal upstroke, no bruits. Chest - clear to auscultation, no wheezing, rales or rhonchi, not in acute resp distress. Heart - normal rate, regular rhythm, normal s1/s2, no murmurs, rubs, or gallops Peripheral vascular: peripheral pulses normal Abdomen - soft, non-tender, non-distended, normal bowel sounds. Extremities - warm and well perfused. no edema. Skin - normal color and turgor, no generalized rash. Psych - mood appropriate. Neuro - mentation intact, moving all extremities independently. DATA REVIEWED: EKG (03/07/2024): DEAL ARCHITECT rhythm Telemetry Data: None yet No results found for: SODIUM, POTASSIUM, GLUCOSE, CHLORIDE, CO2, BUN, CREATSERUM No results found for: WBC, WBCCOUNT, WBCFETAL, HGB, HCT, PLATELET, MCV No results found for: TROP, BNP No results found for: TSH Transthoracic echocardiogram (12/04/23): Associated attestation - Darren Engle MD - 03/07/2024 4:30 PM EST I have personally interviewed and examined this patient with the SUPERVISOR FINISHING ROOM/Fellow/Resident. I have reviewed the history and examination and edited these in the attached note. I agree with themedical decision and components of the note as edited by me. This is a very pleasant 63-year-old female who has a history a biventricular AICD. She follows [facility]. She had been doing relatively well and she takes care of her own ADLs along with her 's. She had some degree of response to CONTRACT PARALEGAL D with an ejection fraction improvement from 25% 40%. It has been noted that her capture threshold of her left ventricular lead hasgradually risen and is now 6.5 volts which is also causing some diaphragmatic stimulation thereforewhen she was seen in the electrophysiology clinic today it was advised that she be admitted for a venogram. The risks and benefits of a venogram were explained. I also explained the possibility of a lead upgrade and be higher chance of significant complications from lead extraction especially given her BMIand the chronicity of the lead and she understands. We will 1st obtain a venogram we will make a decision on whether we could consider implanting a left bundle lead through the left axillary vein which would be the most ideal scenario. Dr. Katie Engle Assistant Manager Quality Managementwafer machine operator Division of Cardiac Electrophysiology documented in this encounterRegency [facility] Company12-30-[facility] Consult note* Eddy Lr MD - 03/07/2024 2:41 PM ESTAssociated Order(s): IP CONSULT TO CARDIOLOGY - EP Images from the original note were not included. Cardiac Electrophysiology Consultation Patient Name: Tanvi Garza Date of Consult: 03/07/2024 Reason for Consultation: permanent pacemaker at [facility] IMPRESSION & RECOMMENDATIONS: Tanvi Garza is a 63 y.o. female who was seen by the EP Consult Service on 03/07/2024. We are asked to assist in management of an permanent pacemaker at [facility] IMPRESSION Permanent pacemaker at [facility] Status post CONTRACT PARALEGAL-D implant RECOMMENDATIONS We will obtain venogram today to assess for vein patency. If the vein is patent, it will be relatively straightforward to implant a new lead. If it is not, we will have to consider inpatient device extraction vs tunneling line to alternative venipuncture site. Given the age of the device, this represents a high-risk extraction. We will ensure pre-operative testing has been ordered/completed (ROSALIO, CT), T&S and will consult cardiac surgery to consider providing surgical backup for the procedure. Eddy Lr MD PGY 9 EP Fellow [phone] This consult was discussed with Dr. Engle, EP attending physician. These recommendations are considered preliminary until cosigned by the attending. If you have any questions or need any further information, please feel free to contact the EP Consult Service. Thank you for allowing us to participate in the care of Tanvi Garza. HPI: Tanvi Garza is a 63 y.o. female with a history of COPD, hypertension, CAD and sick sinus syndrome status post pacemaker implantation in 2008. Since that time, she [facility]. Her LVEF has fluctuated but was most recently 25% (was previously as high as 40%). She has also been given GDMT for CHF. Her capture threshold has gradually risen and is now 6.5 V which occasionally provokes diaphragmatic stimulation. She was admitted 03/07/2024 from EP clinic for inpatient evaluation of CONTRACT PARALEGAL-D system and possible intervention. She denies ever receiving a shock from her device. PAST MEDICAL HISTORY: PAST MEDICAL HISTORY She has a past medical history of Anxiety, CAD (coronary artery disease), COPD (chronic obstructivepulmonary disease), Depression, Diabetes mellitus, Essential hypertension, benign, Hypercalcemia, Hypomagnesemia, Nonischemic cardiomyopathy, Pacemaker, Uterine cancer, and Vulvar cancer (2021). SOCIAL HISTORY She reports that she has quit smoking. Her smoking use included cigarettes. She does not have any smokeless tobacco history on file. She reports that she does not drink alcohol and does not use drugs. FAMILY HISTORY Her family history is not on file. She She indicated that her mother is alive. She indicated that her brother is alive. PAST SURGICAL HISTORY Her has a past surgical history that includes pacemaker placement; partial hysterectomy; cholecystectomy; and vulvar surgery (12/23/2021). ALLERGIES Allergies Allergen Reactions Cholecalciferol [Vitamin D] Rash Sulfamethoxazole Itching Acetaminophen Hives Amoxicillin Nausea Only Celecoxib Dyspepsia Celestial Seasonings Soothers Chlorhexidine Rash Ciprofloxacin Hcl Itching After script Nov 2010 Citalopram Other Reaction(s): Mental Status Change Codeine Hives Cyclobenzaprine Dyspepsia gi upset, bloating Diazepam Hives Doxycycline Other Reaction(s): Intolerance HEART RACING Hydrocodone-Acetaminophen Dyspepsia Hydrocodone-Guaifenesin Other Reaction(s): Mental Status Change Lisinopril Cough Meloxicam Other Reaction(s): Intolerance Abdominal pain, bloating and hartburn. Methocarbamol Rash Nabumetone Rash Naproxen Dyspepsia Omeprazole Dyspepsia Penicillins Hives and Itching Pramipexole Other Reaction(s): Intolerance Ranitidine Hives Ropinirole Rash HOME MEDICATIONS Medications Prior to Admission Medication Sig Dispense Refill Last Dose Albuterol (2.5 MG/3ML) 0.083% inhalation solution 3 mL. carveDILOL 12.5 MG tablet Take 1 tablet by mouth 2 times daily. cholecalciferol 50 MCG (2000 UNIT) tablet Take 1 tablet by mouth daily. Estradiol 0.5 MG tablet Take 1 tablet by mouth daily. LORazepam 1 MG tablet Take 1 tablet by mouth daily as needed for Anxiety. Losartan 25 MG tablet Take 1 tablet by mouth daily. Magnesium Oxide 400 MG capsule Take 1 capsule by mouth 3 (three) times a day. omeprazole [address] capsule Take 1 capsule by mouth daily. Potassium Chloride ER 20 MEQ Tab CR tablet Take 1 tablet by mouth daily. simvastatin 20 MG tablet Take 1 tablet by mouth at bedtime. CURRENT MEDICATIONS REVIEW OF SYSTEMS: General: denies fevers, chills, malaise, weight loss, night sweats HEENT: denies headache, vision changes, hearing changes, rhinorrhea, sore throat Respiratory: denies shortness of breath, cough, dyspnea on exertion Cardiovascular: denies palpitations, chest pain, orthopnea, edema GI/: denies nausea, vomiting, abdominal pain, diarrhea, dysuria, hematuria Extremities: denies myalgias, edema Skin: no rash Neuro: no change in sensation, loss of consciousness Psych: denies anxiety, depression, substance abuse PHYSICAL EXAM: No intake or output data in the 24 hours ending 03/07/24 1441 Pulse (Heart Rate): [68] 68 BP: (116)/(50) 116/50 Weight: [47.7 kg (105 lb 3.2 oz)] 47.7 kg (105 lb 3.2 oz) Physical Exam General appearance - alert and oriented, and in no distress. Neck - supple, normal JVP. Carotids - normal upstroke, no bruits. Chest - clear to auscultation, no wheezing, rales or rhonchi, not in acute resp distress. Heart - normal rate, regular rhythm, normal s1/s2, no murmurs, rubs, or gallops Peripheral vascular: peripheral pulses normal Abdomen - soft, non-tender, non-distended, normal bowel sounds. Extremities - warm and well perfused. no edema. Skin - normal color and turgor, no generalized rash. Psych - mood appropriate. Neuro - mentation intact, moving all extremities independently. DATA REVIEWED: EKG (03/07/2024): DEAL ARCHITECT rhythm Telemetry Data: None yet No results found for: SODIUM, POTASSIUM, GLUCOSE, CHLORIDE, CO2, BUN, CREATSERUM No results found for: WBC, WBCCOUNT, WBCFETAL, HGB, HCT, PLATELET, MCV No results found for: TROP, BNP No results found for: TSH Transthoracic echocardiogram (12/04/23): Associated attestation - Darren Engle MD - 03/07/2024 4:30 PM EST I have personally interviewed and examined this patient with the SUPERVISOR FINISHING ROOM/Fellow/Resident. I have reviewed the history and examination and edited these in the attached note. I agree with themedical decision and components of the note as edited by me. This is a very pleasant 63-year-old female who has a history a biventricular AICD. [facility]. She had been doing relatively well and she takes care of her own ADLs along with her 's. She had some degree of response to CONTRACT PARALEGAL D with an ejection fraction improvement from 25% 40%. It has been noted that her capture threshold of her left ventricular lead hasgradually risen and is now 6.5 volts which is also causing some diaphragmatic stimulation thereforewhen she was seen in the electrophysiology clinic today it was advised that she be admitted for a venogram. The risks and benefits of a venogram were explained. I also explained the possibility of a lead upgrade and be higher chance of significant complications from lead extraction especially given her BMIand the chronicity of the lead and she understands. We will 1st obtain a venogram we will make a decision on whether we could consider implanting a left bundle lead through the left axillary vein which would be the most ideal scenario. Dr. Katie Engle Assistant Manager Quality Managementwafer machine operator Division of Cardiac Electrophysiology [facility] Evaluation note * Diagnosis Onset Date Resolution Status Admit Date Essential (primary) hypertension chronic February 23, 024 8:36am Generalized anxiety disorder chronic February 24, 2024 8:36am Hypomagnesemia chronic February 062023 8:36am Nonischemic cardiomyopathy chronic February 24, 2024 8:36am Type 2 diabetes mellitus chronic February 24, 2024 8:36am Chronic systolic (congestive) heart failure chronic Janua 2024 8:50am Nonischemic cardiomyopathy chronic March 21, 2024 8:50am Presence of biventricular implantable cardioverter-defibrillator (ICD) April, chronic March 21 8:50am ICD (implantable cardioverter-defibrillator) battery depletion resolved March 21, 2024 8:50am Malfunction of implantable defibrillator ventricular (ICD) lead resolved March 21 8:50am Chronic systolic (congestive) heart failure chronic Febru 2024 8:25am Nonischemic cardiomyopathy chronic April 18, 2024 8:25am Presence of biventricular implantable cardioverter-defibrillator (ICD) April, chronic April 18, 025 8:25am Activities involving personal bathing and showering acute May 23, 2024 8:23am Tobacco abuse, in remission acute May 23, 2024 8:23am Chronic diarrhea chronic May 232024 8:23am Essential (primary) hypertension chronic May 23, 2024 8:23am Generalized anxiety disorder chronic May 23, 2024 8:23am Lower extremity weakness chronic May 23, 2024 8:23am Type 2 diabetes mellitus chronic May 23, 2024 8:23am [facility] Work Phone: [phone] [phone] NotePap Smear Specimen AdequacyFebruary 2023 2:59pmComment.Satisfactory for evaluation. No endocervical component is identified.[facility] A#[id number] HealthComment on above:Satisfactory for evaluation. No endocervical component is identified. 04-14-2023 NotePap Smear Specimen AdequacyFebruary 2023 2:59pmComment. Satisfactory for evaluation. No endocervical component is identified.[facility] A#[id number] HealthComment on above:Satisfactory for evaluation. No endocervical component is identified.04-14-2023 NotePap Smear Specimen AdequacyFebruary 2023 3:59pmComment.Satisfactory for evaluation. No endocervical component is identified.[facility] A#[id number] HealthComment on above:Satisfactory for evaluation. No endocervical component is identified.Evaluation + Plan note Future Appointments Appointment Date:12/12/2021 09:00:00 AM Scheduled Provider:CHAR ALVARADO MD Location:[facility] Appointment Type:SO Post Op [facility] Evaluation note* Diagnosis Onset Date Resolution Status COPD (chronic obstructive pulmonary disease) chronic Essential (primary) hypertension chronic Weight loss, non-intentional chronic Chronic systolic (congestive) heart failure chronic Nonischemic cardiomyopathy c hronic Presence of biventricular im plantable cardioverter-defibrillator (ICD) April, chronic [facility] Work Phone: Evaluation note* Diagnosis Onset Date Resolution Status COPD (chronic obstructive pulmonary disease) chronic Essential (primary) hypertension chronic Weight loss, non-intentional chronic Chronic systolic (congestive) heart failure chronic Nonischemic cardiomyopathy c hronic Presence of biventricular im plantable cardioverter-defibrillator (ICD) April, chronic Cancer of vulva acute Depression with anxiety welt rougher meliton Essential (primary) hypertension chronic Type 2 diabetes mellitus chr onic Weight loss, non-intentional chronic [facility] Work Phone: evaluation note* Diagnosis Onset Date Resolution Status Cancer of vulva acute Depression with anxiety welt rougher meliton Essential (primary) hypertension chronic Type 2 diabetes mellitus chr onic Weight loss, non-intentional chronic Nonischemic cardiomyopathy c hronic Presence of biventricular im plantable cardioverter-defibrillator (ICD) April, chronic Cancer of vulva acute Depression with anxiety welt rougher meliton Essential (primary) hypertension chronic Hypomagnesemia chronic Type 2 diabetes mellitus chr onic [facility] Work Phone: Evaluation note* Diagnosis Onset Date Resolution Status Cancer of vulva acute Depression with anxiety welt rougher meliton Essential (primary) hypertension chronic Type 2 diabetes mellitus chr onic Weight loss, non-intentional chronic Nonischemic cardiomyopathy c hronic Presence of biventricular im plantable cardioverter-defibrillator (ICD) April, chronic Cancer of vulva acute Depression with anxiety welt rougher meliton Essential (primary) hypertension chronic Hypomagnesemia chronic Type 2 diabetes mellitus chr onic Chronic systolic (congestive) heart failure chronic Nonischemic cardiomyopathy c hronic Presence of biventricular im plantable cardioverter-defibrillator (ICD) April, chronic [facility] Work Phone: Evaluation note* Diagnosis Onset Date Resolution Status Chronic diarrhea chronic Depression with anxiety welt rougher meliton Essential (primary) hypertension chronic Type 2 diabetes mellitus chr onic Weight loss, non-intentional chronic Vertigo acute Depression with anxiety welt rougher meliton Essential (primary) hypertension chronic Type 2 diabetes mellitus chr onic Weight loss, non-intentional chronic [facility] Work Phone: Evaluation note* Diagnosis Onset Date Resolution Status Vertigo acute Depression with anxiety welt rougher meliton Essential (primary) hypertension chronic Type 2 diabetes mellitus chr onic Weight loss, non-intentional chronic Chronic systolic (congestive) heart failure chronic Nonischemic cardiomyopathy c hronic Presence of biventricular im plantable cardioverter-defibrillator (ICD) April, chronic Essential (primary) hypertension chronic Nonischemic cardiomyopathy c hronic Presence of biventricular im plantable cardioverter-defibrillator (ICD) April, chronic Cancer of vulva acute Well woman exam with routine gynecological exam acute [facility] Work Phone: Evaluation note* Diagnosis Onset Date Resolution Status Vertigo acute Depression with anxiety welt rougher meliton Essential (primary) hypertension chronic Type 2 diabetes mellitus chr onic Weight loss, non-intentional chronic Chronic systolic (congestive) heart failure chronic Nonischemic cardiomyopathy c hronic Presence of biventricular im plantable cardioverter-defibrillator (ICD) April, chronic Essential (primary) hypertension chronic Nonischemic cardiomyopathy c hronic Presence of biventricular im plantable cardioverter-defibrillator (ICD) April, chronic Cancer of vulva acute Well woman exam with routine gynecological exam acute Cancer of vulva acute H/O vulvectomy 2021 acute [facility] Work Phone: Evaluation note* Diagnosis Onset Date Resolution Status Vertigo acute Depression with anxiety welt rougher meliton Essential (primary) hypertension chronic Type 2 diabetes mellitus chr onic Weight loss, non-intentional chronic Chronic systolic (congestive) heart failure chronic Nonischemic cardiomyopathy c hronic Presence of biventricular im plantable cardioverter-defibrillator (ICD) April, chronic Essential (primary) hypertension chronic Nonischemic cardiomyopathy c hronic Presence of biventricular im plantable cardioverter-defibrillator (ICD) April, chronic Well woman exam with routine gynecological exam acute Cancer of vulva resolved H/O vulvectomy 2021 acute Cancer of vulva resolved Depression with anxiety welt rougher meliton Essential (primary) hypertension chronic Hyperlipidemia chronic Hypomagnesemia chronic Type 2 diabetes mellitus chr onic Cancer of vulva resolved [facility] Work Phone: Evaluation note* Diagnosis Malfunction of device- Primary Failure of pacemaker lead, initial encounter Failure of pacemaker lead, initial encounter Failure of pacemaker lead, initial encounter [facility] Diagnosis Malfunction of device- Primary Failure of pacemaker lead, initial encounter Failure of pacemaker lead, initial encounter Failure of pacemaker lead, initial encounter [facility] Narrative No data available for this section [facility] Discharge instructions No data available for this section [facility] Progress note No data available for this section [facility] Reason for visit Narrative* Auth/Cert Specialty Diagnoses / Procedures Referred By Maite muller Referred To Contact Diagnoses Pulmonary emphysema, unspecified emphysema type Jose Akins MD [address] [place] [address] [facility] [address] [place] [address] Referral ID Status Reason Start Date Expiration Date Visits Re quested Visits Authorized [id number] 1 1 [facility] Chief Complaint and Reason for Visit Chief Complaint 3 M FU 3 mos CONTRACT PARALEGAL-D f/u Reason for Visit COPD (chronic obstru ctive pulmonary disease) Essential (primary) hypertension Weight loss, non-intentional Chronic systolic (congestive) heart failure Nonischemic cardiomyopathy Presence of biventricular implantable cardioverter-defibrillator (ICD) Chief Complaint 3 M FU 3 mos CONTRACT PARALEGAL-D f/u 3 M FU LABWORK Reason for Visit COPD (chronic obstru ctive pulmonary disease) Essential (primary) hypertension Weight loss, non-intentional Chronic systolic (congestive) heart failure Nonischemic cardiomyopathy Presence of biventricular implantable cardioverter-defibrillator (ICD) Cancer of vulva Depression with anxiety Essential (primary) hypertension Type 2 diabetes mellitus Weight loss, non-intentional Chief Complaint 3 M FU LABWORK 3 mos CONTRACT PARALEGAL-D f/u 3 M FU Reason for Visit Cancer of vulva Depression with anxiety Essential (primary) hypertension Type 2 diabetes mellitus Weight loss, non-intentional Nonischemic cardiomyopathy Presence of biventricular implantable cardioverter-defibrillator (ICD) Cancer of vulva Depression with anxiety Essential (primary) hypertension Hypomagnesemia Type 2 diabetes mellitus Chief Complaint 3 M FU LABWORK 3 mos CONTRACT PARALEGAL-D f/u 3 M FU check leads due to pain in chest RIGHT CHEST PAIN Reason for Visit Cancer of vulva Depression with anxiety Essential (primary) hypertension Type 2 diabetes mellitus Weight loss, non-intentional Nonischemic cardiomyopathy Presence of biventricular implantable cardioverter-defibrillator (ICD) Cancer of vulva Depression with anxiety Essential (primary) hypertension Hypomagnesemia Type 2 diabetes mellitus Chronic systolic (congestive) heart failure Nonischemic cardiomyopathy Presence of biventricular implantable cardioverter-defibrillator (ICD) Chief Complaint 3 m fu 3 m fu Reason for Visit Chronic diarrhea Depression with anxiety Essential (primary) hypertension Type 2 diabetes mellitus Weight loss, non-intentional Vertigo Depression with anxiety Essential (primary) hypertension Type 2 diabetes mellitus Weight loss, non-intentional Chief Complaint 3 m fu Pacer Check Remote 1 y fu/ 1pm w YOSELIN Establish care, extended appt PAP 1 W FU, biopsy Reason for Visit Vertigo Depression with anxiety Essential (primary) hypertension Type 2 diabetes mellitus Weight loss, non-intentional Chronic systolic (congestive) heart failure Nonischemic cardiomyopathy Presence of biventricular implantable cardioverter-defibrillator (ICD) Essential (primary) hypertension Nonischemic cardiomyopathy Presence of biventricular implantable cardioverter-defibrillator (ICD) Cancer of vulva Well woman exam with routine gynecological exam Chief Complaint 3 m fu Pacer Check Remote 1 y fu/ 1pm w YOSELIN Establish care, extended appt PAP 1 W FU, biopsy VULVAR BIOPSY, VULVER CANCER, PERINEUM Reason for Visit Vertigo Depression with anxiety Essential (primary) hypertension Type 2 diabetes mellitus Weight loss, non-intentional Chronic systolic (congestive) heart failure Nonischemic cardiomyopathy Presence of biventricular implantable cardioverter-defibrillator (ICD) Essential (primary) hypertension Nonischemic cardiomyopathy Presence of biventricular implantable cardioverter-defibrillator (ICD) Cancer of vulva Well woman exam with routine gynecological exam Cancer of vulva H/O vulvectomy Chief Complaint 3 m fu Pacer Check Remote 1 y fu/ 1pm w YOSELIN Establish care, extended appt PAP 1 W FU, biopsy VULVAR BIOPSY, VULVER CANCER, PERINEUM 3 M FU CONTRACT PARALEGAL-D f/u approaching Suzi Reason for Visit Vertigo Depression with anxiety Essential (primary) hypertension Type 2 diabetes mellitus Weight loss, non-intentional Chronic systolic (congestive) heart failure Nonischemic cardiomyopathy Presence of biventricular implantable cardioverter-defibrillator (ICD) Essential (primary) hypertension Nonischemic cardiomyopathy Presence of biventricular implantable cardioverter-defibrillator (ICD) Well woman exam with routine gynecological exam Cancer of vulva H/O vulvectomy Cancer of vulva Depression with anxiety Essential (primary) hypertension Hyperlipidemia Hypomagnesemia Type 2 diabetes mellitus Cancer of vulva Chief Complaint Admit Date COPD February 16, 2024 7:56am 3 m fu February 24, 2024 8:36am S/P [facility] 03/11March 21, 2024 8 :50am Pacer Check Remote March 21, 2024 9 :00am 6 wk s/p LV lead revision and gen change April 18, 2024 8:25am Pacer Check Remote April 18, 2024 9:00am 3 M FU May 23, 2024 8:2 3am systolic (congestive) heart failure (REQ ST WU) June 08, 2024 9:08am Reason for Visit Admit Date Essential (primary) hypertension Decembe r 2023 8:36am Generalized anxiety disorder February 232023 8:36am Hypomagnesemia February 24, 2024 8:36am Nonischemic cardiomyopathy February 8:36am Type 2 diabetes mellitus February 24, 2024 8:36am Chronic systolic (congestive) heart fail ure March 21, 2024 8:50am Nonischemic cardiomyopathy March 21, 2024 8:50am Presence of biventricular im plantable cardioverter-defibrillator (ICD) March 21, 2024 8:50am ICD (implantable cardioverte r-defibrillator) battery depletion March 21, 2024 8:50am Malfunction of implantable d efibrillator ventricular (ICD) lead March 21, 2024 8:50am Chronic systolic (congestive) heart fail ure April 18, 2024 8:25am Nonischemic cardiomyopathy April 8:25am Presence of biventricular im plantable cardioverter-defibrillator (ICD) April 18, 2024 8:25am Activities involving personal bathing an d showering May 23, 2024 8:23am Tobacco abuse, in remission May 23, 2024 8:23am Chronic diarrhea May 23, 2024 8:2 3am Essential (primary) hypertension May 072024 8:23am Generalized anxiety disorder May 23, 2024 8:23am Lower extremity weakness May 23 8:23am Type 2 diabetes mellitus May 23 8:23am Chief Complaint Admit Date 6 wk s/p LV lead revision and gen change April 18, 2024 8:25am Pacer Check Remote April 18, 2024 9:00am 3 M FU May 23, 2024 8:2 3am systolic (congestive) heart failure (REQ ST WU) June 08, 2024 9:08am Pacemaker check July 20, 2024 8:03a m Reason for Visit Admit Date Chronic systolic (congestive) heart fail ure April 18, 2024 8:25am Nonischemic cardiomyopathy April 8:25am Presence of biventricular im plantable cardioverter-defibrillator (ICD) April 18, 2024 8:25am Activities involving personal bathing an d showering May 23, 2024 8:23am Tobacco abuse, in remission May 23, 2024 8:23am Chronic diarrhea May 23, 2024 8:2 3am Essential (primary) hypertension May 072024 8:23am Generalized anxiety disorder May 23, 2024 8:23am Lower extremity weakness May 23 8:23am Type 2 diabetes mellitus May 23 8:23am Chronic systolic (congestive) heart fail ure July 20, 2024 8:03am Nonischemic cardiomyopathy July 20 8:03am Presence of biventricular im plantable cardioverter-defibrillator (ICD) July 20, 2024 8:03am ICD (implantable cardioverte r-defibrillator) battery depletion July 20, 2024 8:03am Chief Complaint Admit Date 6 wk s/p LV lead revision and gen change April 18, 2024 8:25am Pacer Check Remote April 18, 2024 9:00am 3 M FU May 23, 2024 8:2 3am systolic (congestive) heart failure (REQ ST WU) June 08, 2024 9:08am Pacemaker check July 20, 2024 8:03a m Pacer Check Remote July 20, 2024 9:00a m Chief Complaint Admit Date 3 M FU May 23, 2024 8:2 3am systolic (congestive) heart failure (REQ ST WU) June 08, 2024 9:08am Pacemaker check July 20, 2024 8:03a m Pacer Check Remote July 20, 2024 9:00a m 3 m fu August 24, 2024 8:45 am Reason for Visit Admit Date Activities involving personal bathing an d showering May 23, 2024 8:23am Tobacco abuse, in remission May 23, 2024 8:23am Chronic diarrhea May 23, 2024 8:2 3am Essential (primary) hypertension May 072024 8:23am Generalized anxiety disorder May 23, 2024 8:23am Lower extremity weakness May 23 8:23am Type 2 diabetes mellitus May 23 8:23am Chronic systolic (congestive) heart fail ure July 20, 2024 8:03am Nonischemic cardiomyopathy July 20 8:03am Presence of biventricular im plantable cardioverter-defibrillator (ICD) July 20, 2024 8:03am ICD (implantable cardioverte r-defibrillator) battery depletion July 20, 2024 8:03am Family History Relationship Condition Age at Onset Recorded Date/T tri father Cerebrovascular accident (CVA) Unknown Hypertension Unknown Diabetes mellitus Unknown Malignant neoplasm Unknown mother Diabetes mellitus Unknown Advance Directives Advance Directive Response Recorded Date/ Time Advance Directives No October 18, 2020 9:22am Living Will No October 18 9:22am Power of Sergeant Of Officers No October 18 9:22am Advance Directive Response Recorded Date/ Time Advance Directives No October 18, 2020 8:22am Living Will No October 18 8:22am Power of Sergeant Of Officers No October 18 8:22am Advance Directive Response Recorded Date/ Time Advance Directives No November 9:17am Living Will No November 25, 2022 9:17am Power of Sergeant Of Officers No November 9:17am Advance Directive Response Recorded Date/ Time Advance Directives No November 10:17am Living Will No November 25, 2022 10:17am Power of Sergeant Of Officers No November 10:17am Date Activated Date Inactivated Comments 03/10/2024 11:18 AM Date Activated Date Inactivated Comments 03/07/2024 3:55 PM 03/10/2024 11:18 AM Advance Directive Response Recorded Date/ Time Living Will No November 25, 2022 10:17am Do you have a Healthcare Power of Sergeant Of Officers? No November 25, 2022 10:17am Living Will No February 15 9:03am Do you have a Healthcare Power of Sergeant Of Officers? No February 16, 2024 9:03am Advance Directives No November 10:17am Advance Directive Response Recorded Date/ Time Advance Directives No November 10:17am Summary Purpose Reason for Referral Specialty Diagnoses / Procedures Referred By Contac t Referred To Contact Procedures PACEMAKER/ICD INTERROGATION Len Shin MD [address] [place] [address] Referral ID Status Reason Start Date Expiration Date V isits Requested Visits Authorized [id number] New Request 03/10/2024 04/04/2025 1 1 Specialty Diagnoses / Procedures Referred By Contac t Referred To Contact Procedures PLATELET MONITORING PER PROTOCOL Thai Miranda MD [address] [place] [address] Referral ID Status Reason Start Date Expiration Date V isits Requested Visits Authorized [id number] New Request 03/07/2024 04/01/2025 1 1 Specialty Diagnoses / Procedures Referred By Contac t Referred To Contact Procedures DVT/VTE RISK ASSESSMENT Thai Miranda MD [address] [place] [address] Referral ID Status Reason Start Date Expiration Date V isits Requested Visits Authorized [id number] New Request 03/07/2024 04/01/2025 1 1 Additional Source Comments Goals (unrecognized section and content) Goals may be documented in a n alternate sectionGoals may be documented in an alternate section No data available for this sectionGoals may be documented in an alternate sectionGoals may be documented in an alternate sectionGoals may be documented in an alternate sectionGoals may be documented in an alternate sectionGoals may be documented in an alternate sectionGoals may be documented in an alternate sectionGoals may be documented in an alternate sectionGoals may be documented in an alternate sectionGoals may be documented in an alternate sectionGoals may be documented in an alternate sectionGoals may be documented in an alternate section Care Team (unrecognized sect ion and content) Care Team Personnel Name: MARTIN EVANS MD Member Role: Primary Care Physician Address: Address: [address] [place], [place] [id number] Name: CHAR ALVARADO MD Position: P4 Oncology Provider Med Service: CALCINE FURNACE TENDER-ONC Infusion Therapy Member Role: Gynecologic Oncologist Address: Address: [address] [facility] [address] [place] [address] [place] Care Team Related Persons Name: JUAN LUIS RANDLE INFORMATION SOURCE (unrecogn ized section and content) DATE CREATED AUTHOR 03/22/2022 [facility] ([place]) DATE CREATED AUTHOR AUTHOR'S ORGANIZ ATION 03/28/2024 [facility] DATE CREATED AUTHOR AUTHOR'S ORGANIZ ATION 08/03/2024 [facility] Care Teams (unrecognized sec tion and content) Team Status: Active Member Role Status Dates Dr. Martin Evans MD Family Provider Active Dr. Martin Evans MD Primary Care Provider Active Team Status: Inactive Member Role Status Dates Dr. Martin Evans MD Primary Care P rovider, Attending Provider, Referring Provider Active Team Status: Inactive Member Role Status Dates Dr. Martin Evans MD Primary Care Provider, Refer ring Provider Active Emma Vargas SUPERVISOR FINISHING ROOM, SUPERVISOR FINISHING ROOM-C Attending Provider Active Team Status: Inactive Member Role Status Dates Dr. Martin Evans MD Primary Care Provider, Refer ring Provider Active Dr. Joanie Tran DO Attending Provider Activ e Team Status: Inactive Member Role Status Dates Dr. Martin Evans MD Primary Care Provider Active Dr. Stewart Diane MD Attending Provider Active Team Status: Inactive Member Role Status Dates Dr. Martin Evans MD Primary Care Provider Active Dr. Joanie Tran DO Attending Provider, Refe rring Provider Active Team Status: Active Member Role Status Dates Dr. Martin Evans MD Primary Care Provider, Refer ring Provider Active Aliyah Aguilar Attending Provider Active Team Status: Inactive Member Role Status Dates Dr. Martin Evans MD Primary Care Provider, Atten ding Provider Active Access Services Assistant Relationship Specialty Start Date End Date Martin Evans MD [address] [address] PCP - General Internal Medicine 01/28/24 Stewart Diane MD [address] [facility] [place] [address] Cardiovascular Disease 02/03/24 Access Services Assistant Relationship Specialty Start Date End Date Martin Evans MD [address] [facility] [address] [place] [id number] PCP - General Internal Medicine 01/28/24 Stewart Diane MD [address] [facility] [place] [address] Cardiovascular Disease 02/03/24 Team Status: Active Member Role Status Dates Dr. Martin Evans MD Primary Care Provider Active Team Status: Inactive Member Role Status Dates Dr. Martin Evans MD Primary Care Provider Active Start: February 16, 2024 End: February 16, 2024 Dr. Alfonzo Rahman DO Attending Provider Active Start: February 16, 2024 End: February 16, 2024 Dr. Alfonzo Rahman DO Emergency Provider Active Start: February 16, 2024 End: February 16, 2024 Dr. Stewart Diane MD Other Provider Active Start : February 16, 2024 End: February 16, 2024 Team Status: Inactive Member Role Status Dates Dr. Martin Evans MD Primary Care Provider Active Start: February 24, 2024 End: February 24, 2024 Dr. Martin Evans MD Attending Provider Active Start: February 24, 2024 End: February 24, 2024 Dr. Martin Evans MD Referring Provider Active Start: February 24, 2024 End: February 24, 2024 Team Status: Inactive Member Role Status Dates Dr. Martin Evans MD Primary Care Provider Active Start: March 21, 2024 End: March 21, 2024 Dr. Martin Evans MD Referring Provider Active Start: March 21, 2024 End: March 21, 2024 Dr. Stewart Diane MD Attending Provider Active S tart: March 21, 2024 End: March 21, 2024 Team Status: Inactive Member Role Status Dates Dr. Martin Evans MD Primary Care Provider Active Start: March 21, 2024 End: March 21, 2024 Dr. Stewart Diane MD Attending Provider Active S tart: March 21, 2024 End: March 21, 2024 Team Status: Inactive Member Role Status Dates Dr. Martin Evans MD Primary Care Provider Active Start: April 18, 2024 End: April 18, 2024 Dr. Martin Evans MD Referring Provider Active Start: April 18, 2024 End: April 18, 2024 Dr. Stewart Diane MD Attending Provider Active S tart: April 18, 2024 End: April 18, 2024 Team Status: Inactive Member Role Status Dates Dr. Martin Evans MD Primary Care Provider Active Start: April 18, 2024 End: April 18, 2024 Dr. Stewart Diane MD Attending Provider Active S tart: April 18, 2024 End: April 18, 2024 Team Status: Inactive Member Role Status Dates Dr. Martin Evans MD Primary Care Provider Active Start: May 23, 2024 End: May 23, 2024 Dr. Martin Evans MD Attending Provider Active Start: May 23, 2024 End: May 23, 2024 Dr. Martin Evans MD Referring Provider Active Start: May 23, 2024 End: May 23, 2024 Team Status: Inactive Member Role Status Dates Dr. Martin Evans MD Primary Care Provider Active Start: June 08, 2024 End: June 08, 2024 Dr. Stewart Diane MD Attending Provider Active S tart: June 08, 2024 End: June 08, 2024 Dr. Stewart Diane MD Referring Provider Active S tart: June 08, 2024 End: June 08, 2024 Team Status: Active Member Role Status Dates Dr. Martin Evans MD Primary Care Provider Active Start: June 08, 2024 Dr. Stewart Diane MD Attending Provider Active S tart: June 08, 2024 Team Status: Inactive Member Role Status Dates Dr. Martin Evans MD Primary Care Provider Active Start: July 20, 2024 End: July 20, 2024 Dr. Martin Evans MD Referring Provider Active Start: July 20, 2024 End: July 20, 2024 Aliyah Aguilar Attending Provider Active Start: 2024 End: July 20, 2024 Team Status: Inactive Member Role Status Dates Dr. Martin Evans MD Primary Care Provider Active Start: July 20, 2024 End: July 20, 2024 Dr. Stewart Diane MD Attending Provider Active S tart: July 20, 2024 End: July 20, 2024 Team Status: Inactive Member Role Status Dates Dr. Martin Evans MD Referring Provider Active Start: July 20, 2024 End: July 20, 2024 Dr. Stewart Diane MD Attending Provider Active S tart: July 20, 2024 End: July 20, 2024 Team Status: Inactive Member Role Status Dates Dr. Martin Evans MD Attending Provider Active Start: August 24, 2024 End: August 24, 2024 Dr. Martin Evans MD Referring Provider Active Start: August 24, 2024 End: August 24, 2024 Team Status: Active Member Role Status Dates Dr. Martin Evans MD Primary Care Provider Active Start: August 24, 2024 Dr. Martin Evans MD Attending Provider Active Start: August 24, 2024 Dr. Martin Evans MD Referring Provider Active Start: August 24, 2024 Scheduled Active and Recently Administ ered Medications (unrecognized section and content) Medication Order 03/09/2024 03/10/2024 03/11/2024 Atorvastatin (LIPITOR) tablet 10 mg 10 mg, Oral, EVERY 24 HOURS, First dose on Thu03/08/24 at 1800, Until Discontinued 170 (Given - Provider: Kang Moran RN) 180 (Given - Provider: Nilda Barrios RN) carveDILOL (COREG) tablet 12.5 mg 12.5 mg, Oral, EVERY 12 HOURS, First dose on Thu03/07/24 at 1800, Until Discontinued 0611 (Given - Provider: Dustin Boston RN)1700 (Given - Provider: Kang Moran RN) 0549 (Given - Provider: Danielle Richardson, RN)1801 (Given - Provider: Nilda Barrios RN) 0630 (Given - Provider: Kayce Nobles, RN) cholecalciferol (VITAMIN D3) tablet 2,000 Units 2,000 Units, Oral, EVERY 24 HOURS, First dose (after last modification) on Thu03/08/24 at 0600, Until Discontinued 0611 (Given - Provider: Dustin Boston RN) 0549 (Given - Provider: Danielle Richardson, LARRY) 0631 (Given - Provider: Kayce Nobles, RN) Enoxaparin Sodium (LOVENOX) injection 30 mg 30 mg, Subcutaneous, EVERY 24 HOURS, First dose on Thu03/08/24 at 0600, Until Discontinued, For SUBCUTANEOUS route ONLY: alternate injection sites between left and right abdominal wall, pinching location and avoiding area around navel. If unable to use abdominal sites, may use the front or side of thighs., Indications: DVT/PE prophylaxis, On hold since Thu03/09/2024 at 1430 until manually unheld 0611 (Given - Provider: Dustin Boston RN)1430 (Held by provider - Provider: Joselyn Morelos MD - Reason: Other) 0600 (Automatically Held - Provider: Joselyn Morelos MD) 0600 (Automatically Held - Provider: Joselyn Morelos MD)1601 (Unheld by provider - Provider: System Discharge) Estradiol (ESTRACE) tablet 0.5 mg 0.5 mg, Oral, EVERY 24 HOURS, First dose (after last modification) on Thu03/08/24 at 0600, Until Discontinued, Swallow tablet whole; do not crush, split or chew. Contact pharmacy if alternate route or dose is needed. 0611 (Given - Provider: Dustin Boston RN) 0548 (Given - Provider: Danielle Richardson, LARRY) 0630 (Given - Provider: Kayce Nobles, LARRY) furOSEmide (LASIX) tablet 40 mg 40 mg, Oral, EVERY 24 HOURS, First dose (after last modification) on Thu03/09/24 at 0600, Until Discontinued, On hold since Thu03/09/2024 at 1428 until manually unheld 0611 (Given - Provider: Dustin Boston RN)1428 (Held by provider - Provider: Joselyn Morelos MD - Reason: Other) 0600 (Automatically Held - Provider: Joselyn Morelos MD) 0600 (Automatically Held - Provider: Joselyn Morelos MD)1601 (Unheld by provider - Provider: System Discharge) Losartan (COZAAR) tablet 25 mg 25 mg, Oral, EVERY 24 HOURS, First dose (after last modification) on Thu03/08/24 at 1800, Until Discontinued, On hold since Thu03/09/2024 at 1428 until manually unheld 1428 (Held by provider - Provider: Joselyn Morelos MD - Reason: Other)1800 (Automatically Held - Provider: Joselyn Morelos MD) 1800 (Automatically Held - Provider: Joselyn Morelos MD) 1601 (Unheld by provider - Provider: System Discharge) Magnesium sulfate 1 g in dextrose 5% 100 mL premix IVPB (COMPLETED)(Linked Group 1) 1 g, Intravenous, at 100 mL/hr, Administer over 60 Minutes, ONCE, 1 dose, On Thu03/10/24 at 1900 2008 ($$New Bag$$ - Provider: Kayce Nobles RN)2008 (Rate/Dose Verify - Provider: Kayce Nobles RN)2054 (Stopped - Provider: Kayce Nobles RN)205 (Rate/Dose Verify - Provider: Kayce Nobles RN)2100 (Rate/Dose Verify - Provider: Kayce Nobles RN) 0753 (Stopped - Provider: Ashlyn Brown, RN) Magnesium sulfate 1 g in dextrose 5% 100 mL premix IVPB (COMPLETED)(Linked Group 1) 1 g, Intravenous, at 100 mL/hr, Administer over 60 Minutes, ONCE, 1 dose, On Thu03/10/24 at 2000 2110 ($$New Bag$$ - Provider: Kayce Nobles RN) 0752 (Stopped - Provider: Ashlyn Brown, RN) Pantoprazole (PROTONIX) tablet DR 40 mg 40 mg, Oral, EVERY 24 HOURS, First dose (after last modification) on Thu03/08/24 at 0600, Until Discontinued, Swallow whole; do not crush or chew., Indications: Continuation of Home Therapy 0611 (Given - Provider: Dustin Boston RN) 0549 (Given - Provider: Danielle Richardson, LARRY) 0630 (Given - Provider: Kayce Nobles, RN) PRN Medication Order 03/09/2024 03/10/2024 03/11/2024 Acetaminophen (TYLENOL) tablet 975 mg 975 mg, Oral, EVERY 6 HOURS NEEDED, Starting on Viktoriya 03/10/24 at 1633, Until Thu03/11/24 at 1601, Mild Pain, Moderate Pain, Headaches, Maximum dose of acetaminophen is 4000 mg from all sources in 24 hours. 1723 (Given - Provider: Nilda Barrios RN) 0640 (Given - Provider: Kayce Nobles, RN) alum/mag hydrox.-simethicone oral suspension 30 mL 30 mL, Oral, EVERY 6 HOURS NEEDED, Starting on 03/07/24 at 1554, Until Thu03/11/24 at 1601, Indigestion, Per 5 mL is equivalent to: (Alum-Mag Hydroxide 200-225 mg and Simethicone 20 mg) and (Alum-Mag Hydroxide 200-200 mg and Simethicone 20 mg) Aztreonam (AZACTAM) 2 g in sterile water (PF) 10 mL syringe (COMPLETED) 2 g, Intravenous, Administer over 3 Minutes, HEARING IMPAIRED TEACHER TO PROCEDURE, 1 dose, Starting on Viktoriya 03/10/24 at 0626, Until Viktoriya 03/10/24 at 0949, Other 0946 (Given - Provider: Reagan Ayon RN) fentaNYL (SUBLIMAZE) injection (CANCELED) Administer over 2 Minutes, NEEDED, Starting on Viktoriya 03/10/24 at 1011, Until Viktoriya 03/10/24 at 1208, Intra-op/Intra-Proc 1011 (Given - Provider: Reagan Ayon RN)1114 (Given - Provider: Reagan Ayon RN) Iohexol (OMNIPAQUE) 300 MG/ML vial (CANCELED) NEEDED, Starting on Viktoriya 03/10/24 at 1026, Until Viktoriya 03/10/24 at 1208, Intra-op/Intra-Proc 1026 (Given - Provider: Reagan Ayon, LARRY) Ipratropium-albuterol (DUONEB) 0.5-2.5 (3) MG/3ML nebulizer solution 3 mL 3 mL, Nebulization, EVERY 4 HOURS NEEDED, Starting on Thu03/07/24 at 1552, Until Thu03/11/24 at 1601, Shortness of Breath, Cough, Breathing Treatment, Wheezing, Respiratory Distress 1419 (Given - Provider: Thang Cooney RCP)204 (Given - Provider: Artem Burch RCP) 211 (Given - Provider: Justina Kidd RCP) Lidocaine (XYLOCAINE) 10 mg/mL injection (CANCELED) NEEDED, Starting on Viktoriya 03/10/24 at 1011, Until Viktoriya 03/10/24 at 1208, Intra-op/Intra-Proc 1011 (Given - Provider: Aurora Velasco MD)1018 (Given - Provider: Aurora Velasco MD)1112 (Given - Provider: Aurora Velasco MD) LORazepam (ATIVAN) tablet 1 mg 1 mg, Oral, DAILY NEEDED, Starting on Thu03/07/24 at 1551, Until Thu03/11/24 at 1601, Anxiety 1701 (Given - Provider: Kang Moran, LARRY) 1723 (Given - Provider: Nilda Barrios RN) 0952 (Given - Provider: Ashlyn Brown RN) magnesium oxide (MAG-OX) tablet 800 mg(Linked Group 2) 800 mg, Oral, ADMINISTER DIRECTED, Starting on Thu03/08/24 at 0811, Until Thu03/11/24 at 1601, See admin instructions, Cardiology Medicine Electrolyte Replacement Protocol, Administer for magnesium level of 1.6-1.9 mg/dL. NOT APPROPRIATE for Dialysis Patients, those with CrCl less than 30 mL/min, weight less than 50 kg; or for history of renal transplant. Draw magnesium level with next day morning labs. 1315 (See Alternative - Provider: Nilda Barrios RN)1318 (See Alternative - Provider: Nilda Barrios, LARRY)1329 (See Alternative - Provider: Nilda Barrios RN)1354 (See Alternative - Provider: Nilda Barrios RN)1358 (See Alternative - Provider: Nilda Barrios RN)1629 (See Alternative - Provider: Nilda Barrios, RN) magnesium oxide (MAG-OX) tablet 800 mg(Linked Group 2) 800 mg, Per NG tube, ADMINISTER DIRECTED, Starting on Thu03/08/24 at 0811, Until Thu03/11/24 at 1601, See admin instructions, Cardiology Medicine Electrolyte Replacement Protocol, Administer for magnesium level of 1.6-1.9 mg/dL. NOT APPROPRIATE for Dialysis Patients, those with CrCl less than 30 mL/min, weight less than 50 kg; or for history of renal transplant. Draw magnesium level with next day morning labs. 1315 (See Alternative - Provider: Nilda Barrios RN)1318 (See Alternative - Provider: Nilda Barrios RN)1329 (See Alternative - Provider: Nilda Barrios RN)1354 (See Alternative - Provider: Nilda Barrios RN)1358 (See Alternative - Provider: Nilda Barrios RN)1629 (See Alternative - Provider: Nilda Barrios RN) Magnesium sulfate 4 g in sterile water 50 ml premix IVPB(Linked Group 2) 4 g, Intravenous, Administer over 4 Hours, ADMINISTER DIRECTED, Starting on Thu03/08/24 at 0811, Until Thu03/11/24 at 1601, Other, Cardiology Medicine Electrolyte Replacement Protocol, Administer for Magnesium level less than or equal to 1.5 mg/dL. NOT APPROPRIATE for Dialysis Patients, those with CrCl less than 30 mL/min, weight less than 50 kg; or for history of renal transplant. Repeat Magnesium level eight (8) hours after each infusion if most recent magnesium level is less than 1.3 mg/dL. Draw with next day morning labs after replacements for previous magnesium levels between 1.3-1.9 mg/dL. 1315 ($$New Bag$$ - Provider: Nilda Barrios RN)1318 (Paused - Provider: Nilda Barrios RN)1329 (Restarted - Provider: Nilda Barrios RN)1354 (Paused - Provider: Nilda Barrios, RN)1358 (Restarted - Provider: Nilda Barrios, RN)1629 (Stopped - Provider: Nilda Barrios RN) Melatonin tablet 6 mg 6 mg, Oral, DAILY AT BEDTIME NEEDED, Starting on Thu03/07/24 at 1554, Until Thu03/11/24 at 1601, Insomnia Ondansetron (ZOFRAN) tablet 4 mg(Linked Group 3) 4 mg, Oral, EVERY 6 HOURS NEEDED, Starting on Thu03/07/24 at 1554, Until Thu03/11/24 at 1601, Nausea / Vomiting, 1st line for Nausea/Vomiting Ondansetron 4mg/2ml (ZOFRAN) injection 4 mg(Linked Group 3) 4 mg, Intravenous, EVERY 6 HOURS NEEDED, Starting on Thu03/07/24 at 1554, Until Thu03/11/24 at 1601, Nausea / Vomiting, 1st line for Nausea/Vomiting oxyCODONE (ROXICODONE) tablet 5 mg(Linked Group 4) 5 mg, Oral, EVERY 4 HOURS NEEDED, Starting on Thu03/10/24 at 1116, Until Thu03/11/24 at 1601, Moderate Pain, Severe Pain, PRN for Moderate Pain. Use for Severe Pain if IV not available for use as initial dose. Higher dose may be administred if lower dose was previously documented as ineffective and did not result in adverse effects (RR<10, decrease in level of consciousness)., Post-op/Post-Proc oxyCODONE HCl (ROXICODONE) tablet 10 mg(Linked Group 4) 10 mg, Oral, EVERY 4 HOURS NEEDED, Starting on Thu03/10/24 at 1116, Until Thu03/11/24 at 1601, Moderate Pain, Severe Pain, PRN for Moderate Pain. Use for Severe Pain if IV not available for use as initial dose. Higher dose may be administred if lower dose was previously documented as ineffective and did not result in adverse effects (RR<10, decrease in level of consciousness), Post-op/Post-Proc Polyethylene glycol (MIRALAX) packet 17 g 17 g, Oral, DAILY NEEDED, Starting on Thu03/07/24 at 1554, Until Thu03/11/24 at 1601, Constipation 1st Line Potassium Bicarb-Citric Acid (Effer-K) 20 MEQ effervescent tablets for oral solution 40-60 mEq(Linked Group 5) 40-60 mEq, Per NG tube, ADMINISTER DIRECTED, Starting on Thu03/08/24 at 0811, Until Thu03/11/24 at 1601, Other, Cardiology Medicine Electrolyte Replacement Protocol, NOT APPROPRIATE for Dialysis Patients, those with CrCl less than 30 mL/min, weight less than 50 kg; or for history of renal transplant. Check magnesium level and administer magnesium prior to potassium replacement if indicated. For Potassium level less than 3 mmol/L administer 40 mEq every 4 hours x2 occurances. Recheck potassium level eight (8) hours after second dose administered. For Potassium level 3-3.5 mmol/L administer 60 mEq once. Recheck potassium level eight (8) hours after administration. For Potassium level 3.6-4.0 mmol/L administer 40 mEq once. Recheck potassium level with morning labs next day. Do not swallow whole. Dissolve completely in 3-4 ounces of water or cold juice before drinking. If administering via J tube, dilute in sterile water, wait for tablet to stop fizzing, swirl the solution and draw into a syringe suitable for attaching to the tube. After administration, flush tube with 15-30 ml water. 0621 (See Alternative - Provider: Danielle Richardson RN) Potassium chloride (K-DUR) tablet ER 40-60 mEq(Linked Group 5) 40-60 mEq, Oral, ADMINISTER DIRECTED, Starting on Thu03/08/24 at 0811, Until Thu03/11/24 at 1601, See admin instructions, Other, Cardiology Medicine Electrolyte Replacement Protocol, NOT APPROPRIATE for Dialysis Patients, those with CrCl less than 30 mL/min, weight less than 50 kg; or for history of renal transplant. Check magnesium level and administer magnesium prior to potassium replacement if indicated. For Potassium level less than 3 mmol/L administer 40 mEq every 4 hours x2 occurances. Recheck potassium level eight (8) hours after second dose administered. For Potassium level 3-3.5 mmol/L administer 60 mEq once. Recheck potassium level eight (8) hours after administration. For Potassium level 3.6-4.0 mmol/L administer 40 mEq once. Recheck potassium level with morning labs next day. 0621 (Given - Provider: Danielle Richardson RN) Vancomycin HCl in NaCl (VANCOCIN) 1,000 mg in 200 ml NS premix IVPB (COMPLETED) 1,000 mg, Intravenous, Administer over 1 Hours, HEARING IMPAIRED TEACHER TO PROCEDURE, 1 dose, Starting on Thu03/08/24 at 0927, Until Viktoriya 03/10/24 at 0926, Other, Preoperative antibiotic, Order should be timed for day of procedure. 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 Vancomycin is preferred agent for device implants, based on national, community and local (OSUM) MRSA rates. Extravasation Risk, Pre-Procedure(Cath) 0845 ($$New Bag$$ - Provider: Nilda Barrios, LARRY)0926 (Stopped - Provider: Nilda Barrios RN) Linked Groups Order Group 1: Magnesium sulfate 1 g in dextrose 5% 100 mL premix IVPB (COMPLETED)Jump to med 1 g, Intravenous, at 100 mL/hr, Administer over 60 Minutes, ONCE, 1 dose, On Viktoriya 03/10/24 at 1900 Followed by Magnesium sulfate 1 g in dextrose 5% 100 mL premix IVPB (COMPLETED)Jump to med 1 g, Intravenous, at 100 mL/hr, Administer over 60 Minutes, ONCE, 1 dose, On Viktoriya 03/10/24 at 2000 Group 2: magnesium oxide (MAG-OX) tablet 800 mgJump to med 800 mg, Oral, ADMINISTER DIRECTED, Starting on Thu03/08/24 at 0811, Until Thu03/11/24 at 1601, See admin instructions, Cardiology Medicine Electrolyte Replacement Protocol, Administer for magnesium level of 1.6-1.9 mg/dL. NOT APPROPRIATE for Dialysis Patients, those with CrCl less than 30 mL/min, weight less than 50 kg; or for history of renal transplant. Draw magnesium level with next day morning labs. Or magnesium oxide (MAG-OX) tablet 800 mgJump to med 800 mg, Per NG tube, ADMINISTER DIRECTED, Starting on Thu03/08/24 at 0811, Until Thu03/11/24 at 1601, See admin instructions, Cardiology Medicine Electrolyte Replacement Protocol, Administer for magnesium level of 1.6-1.9 mg/dL. NOT APPROPRIATE for Dialysis Patients, those with CrCl less than 30 mL/min, weight less than 50 kg; or for history of renal transplant. Draw magnesium level with next day morning labs. Or Magnesium sulfate 4 g in sterile water 50 ml premix IVPBJump to med 4 g, Intravenous, Administer over 4 Hours, ADMINISTER DIRECTED, Starting on Thu03/08/24 at 0811, Until Thu03/11/24 at 1601, Other, Cardiology Medicine Electrolyte Replacement Protocol, Administer for Magnesium level less than or equal to 1.5 mg/dL. NOT APPROPRIATE for Dialysis Patients, those with CrCl less than 30 mL/min, weight less than 50 kg; or for history of renal transplant. Repeat Magnesium level eight (8) hours after each infusion if most recent magnesium level is less than 1.3 mg/dL. Draw with next day morning labs after replacements for previous magnesium levels between 1.3-1.9 mg/dL. Group 3: Ondansetron 4mg/2ml (ZOFRAN) injection 4 mgJump to med 4 mg, Intravenous, EVERY 6 HOURS NEEDED, Starting on Thu03/07/24 at 1554, Until Thu03/11/24 at 1601, Nausea / Vomiting, 1st line for Nausea/Vomiting Or Ondansetron (ZOFRAN) tablet 4 mgJump to med 4 mg, Oral, EVERY 6 HOURS NEEDED, Starting on Thu03/07/24 at 1554, Until Thu03/11/24 at 1601, Nausea / Vomiting, 1st line for Nausea/Vomiting Group 4: oxyCODONE (ROXICODONE) tablet 5 mgJump to med 5 mg, Oral, EVERY 4 HOURS NEEDED, Starting on Viktoriya 03/10/24 at 1116, Until Thu03/11/24 at 1601, Moderate Pain, Severe Pain, PRN for Moderate Pain. Use for Severe Pain if IV not available for use as initial dose. Higher dose may be administred if lower dose was previously documented as ineffective and did not result in adverse effects (RR<10, decrease in level of consciousness)., Post-op/Post-Proc Or oxyCODONE HCl (ROXICODONE) tablet 10 mgJump to med 10 mg, Oral, EVERY 4 HOURS NEEDED, Starting on Viktoriya 03/10/24 at 1116, Until Thu03/11/24 at 1601, Moderate Pain, Severe Pain, PRN for Moderate Pain. Use for Severe Pain if IV not available for use as initial dose. Higher dose may be administred if lower dose was previously documented as ineffective and did not result in adverse effects (RR<10, decrease in level of consciousness), Post-op/Post-Proc Group 5: Potassium chloride (K-DUR) tablet ER 40-60 mEqJump to med 40-60 mEq, Oral, ADMINISTER DIRECTED, Starting on Thu03/08/24 at 0811, Until Thu03/11/24 at 1601, See admin instructions, Other, Cardiology Medicine Electrolyte Replacement Protocol, NOT APPROPRIATE for Dialysis Patients, those with CrCl less than 30 mL/min, weight less than 50 kg; or for history of renal transplant. Check magnesium level and administer magnesium prior to potassium replacement if indicated. For Potassium level less than 3 mmol/L administer 40 mEq every 4 hours x2 occurances. Recheck potassium level eight (8) hours after second dose administered. For Potassium level 3-3.5 mmol/L administer 60 mEq once. Recheck potassium level eight (8) hours after administration. For Potassium level 3.6-4.0 mmol/L administer 40 mEq once. Recheck potassium level with morning labs next day. Or Potassium Bicarb-Citric Acid (Effer-K) 20 MEQ effervescent tablets for oral solution 40-60 mEqJump to med 40-60 mEq, Per NG tube, ADMINISTER DIRECTED, Starting on Thu03/08/24 at 0811, Until Thu03/11/24 at 1601, Other, Cardiology Medicine Electrolyte Replacement Protocol, NOT APPROPRIATE for Dialysis Patients, those with CrCl less than 30 mL/min, weight less than 50 kg; or for history of renal transplant. Check magnesium level and administer magnesium prior to potassium replacement if indicated. For Potassium level less than 3 mmol/L administer 40 mEq every 4 hours x2 occurances. Recheck potassium level eight (8) hours after second dose administered. For Potassium level 3-3.5 mmol/L administer 60 mEq once. Recheck potassium level eight (8) hours after administration. For Potassium level 3.6-4.0 mmol/L administer 40 mEq once. Recheck potassium level with morning labs next day. Do not swallow whole. Dissolve completely in 3-4 ounces of water or cold juice before drinking. If administering via J tube, dilute in sterile water, wait for tablet to stop fizzing, swirl the solution and draw into a syringe suitable for attaching to the tube. After administration, flush tube with 15-30 ml water. Scheduled Medication Order 03/09/2024 03/10/2024 03/11/2024 Atorvastatin (LIPITOR) tablet 10 mg 10 mg, Oral, EVERY 24 HOURS, First dose on Thu03/08/24 at 1800, Until Discontinued 170 (Given - Provider: Kang Moran, RN) 180 (Given - Provider: Nilda Barrios, RN) carveDILOL (COREG) tablet 12.5 mg 12.5 mg, Oral, EVERY 12 HOURS, First dose on Thu03/07/24 at 1800, Until Discontinued 0611 (Given - Provider: Dustin Boston RN)1700 (Given - Provider: Kang Moran, RN) 0549 (Given - Provider: Danielle Richardson, RN)180 (Given - Provider: Nilda Barrios, RN) 0630 (Given - Provider: Kayce Nobles, RN) cholecalciferol (VITAMIN D3) tablet 2,000 Units 2,000 Units, Oral, EVERY 24 HOURS, First dose (after last modification) on Thu03/08/24 at 0600, Until Discontinued 0611 (Given - Provider: Dustin Boston RN) 0549 (Given - Provider: Danielle Richardson, RN) 0631 (Given - Provider: Kayce Nobles, RN) Enoxaparin Sodium (LOVENOX) injection 30 mg 30 mg, Subcutaneous, EVERY 24 HOURS, First dose on Thu03/08/24 at 0600, Until Discontinued, For SUBCUTANEOUS route ONLY: alternate injection sites between left and right abdominal wall, pinching location and avoiding area around navel. If unable to use abdominal sites, may use the front or side of thighs., Indications: DVT/PE prophylaxis, On hold since Thu03/09/2024 at 1430 until manually unheld 0611 (Given - Provider: Dustin Boston RN)1430 (Held by provider - Provider: Joselyn Morelos MD - Reason: Other) 0600 (Automatically Held - Provider: Joselyn Morelos MD) 0600 (Automatically Held - Provider: Joselyn Morelos MD)1601 (Unheld by provider - Provider: System Discharge) Estradiol (ESTRACE) tablet 0.5 mg 0.5 mg, Oral, EVERY 24 HOURS, First dose (after last modification) on Thu03/08/24 at 0600, Until Discontinued, Swallow tablet whole; do not crush, split or chew. Contact pharmacy if alternate route or dose is needed. 0611 (Given - Provider: Dustin Boston, RN) 0548 (Given - Provider: Danielle Richardson, RN) 0630 (Given - Provider: Kayce Nobles, RN) furOSEmide (LASIX) tablet 40 mg 40 mg, Oral, EVERY 24 HOURS, First dose (after last modification) on Thu03/09/24 at 0600, Until Discontinued, On hold since Thu03/09/2024 at 1428 until manually unheld 0611 (Given - Provider: Dustin Boston RN)1428 (Held by provider - Provider: Joselyn Morelos MD - Reason: Other) 0600 (Automatically Held - Provider: Joselyn Morelos MD) 0600 (Automatically Held - Provider: Joselyn Morelos MD)1601 (Unheld by provider - Provider: System Discharge) Losartan (COZAAR) tablet 25 mg 25 mg, Oral, EVERY 24 HOURS, First dose (after last modification) on Thu03/08/24 at 1800, Until Discontinued, On hold since Thu03/09/2024 at 1428 until manually unheld 1428 (Held by provider - Provider: Joselyn Morelos MD - Reason: Other)1800 (Automatically Held - Provider: Joselyn Morelos MD) 1800 (Automatically Held - Provider: Joselyn Morelos MD) 1601 (Unheld by provider - Provider: System Discharge) Magnesium sulfate 1 g in dextrose 5% 100 mL premix IVPB (COMPLETED)(Linked Group 1) 1 g, Intravenous, at 100 mL/hr, Administer over 60 Minutes, ONCE, 1 dose, On Thu03/10/24 at 1900 2007 ($$New Bag$$ - Provider: Kayce Nobles, RN)2008 (Rate/Dose Verify - Provider: Kayce Nobles, RN)2054 (Stopped - Provider: Kayce Nobles, RN)2057 (Rate/Dose Verify - Provider: Kayce Nobles, RN)2099 (Rate/Dose Verify - Provider: Kayce Nobles, RN) 075 (Stopped - Provider: Ashlyn Brown RN) Magnesium sulfate 1 g in dextrose 5% 100 mL premix IVPB (COMPLETED)(Linked Group 1) 1 g, Intravenous, at 100 mL/hr, Administer over 60 Minutes, ONCE, 1 dose, On Viktoriya 03/10/24 at 1999 2110 ($$New Bag$$ - Provider: Kayce Nobles, RN) 0752 (Stopped - Provider: Ashlyn Brown, LARRY) Pantoprazole (PROTONIX) tablet DR 40 mg 40 mg, Oral, EVERY 24 HOURS, First dose (after last modification) on Thu03/08/24 at 0600, Until Discontinued, Swallow whole; do not crush or chew., Indications: Continuation of Home Therapy 0611 (Given - Provider: Dustin Boston, LARRY) 0549 (Given - Provider: Danielle Richardson, RN) 0630 (Given - Provider: Kayce Nobles, RN) PRN Medication Order 03/09/2024 03/10/2024 03/11/2024 Acetaminophen (TYLENOL) tablet 975 mg 975 mg, Oral, EVERY 6 HOURS NEEDED, Starting on Viktoriya 03/10/24 at 1633, Until Thu03/11/24 at 1601, Mild Pain, Moderate Pain, Headaches, Maximum dose of acetaminophen is 4000 mg from all sources in 24 hours. 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, 1 dose, Starting on Viktoriya 03/10/24 at 0626, Until Viktoriya 03/10/24 at 0949, Other 0946 (Given - Provider: Reagan Ayon, LARRY) fentaNYL (SUBLIMAZE) injection (CANCELED) Administer over 2 Minutes, NEEDED, Starting on Viktoriya 03/10/24 at 1011, Until Viktoriya 03/10/24 at 1208, Intra-op/Intra-Proc 1011 (Given - Provider: Reagan Ayon LARRY)1114 (Given - Provider: Reagan Ayon, LARRY) Iohexol (OMNIPAQUE) 300 MG/ML vial (CANCELED) NEEDED, Starting on Viktoriya 03/10/24 at 1026, Until Viktoriya 03/10/24 at 1208, Intra-op/Intra-Proc 1026 (Given - Provider: Reagan Ayon, LARRY) Ipratropium-albuterol (DUONEB) 0.5-2.5 (3) MG/3ML nebulizer solution 3 mL 3 mL, Nebulization, EVERY 4 HOURS NEEDED, Starting on Thu03/07/24 at 1552, Until Thu03/11/24 at 1601, Shortness of Breath, Cough, Breathing Treatment, Wheezing, Respiratory Distress 1419 (Given - Provider: Thang Cooney RCP)2040 (Given - Provider: Artem Burch RCP) 211 (Given - Provider: Justina Kidd RCP) Lidocaine (XYLOCAINE) 10 mg/mL injection (CANCELED) NEEDED, Starting on Viktoriya 03/10/24 at 1011, Until Viktoriya 03/10/24 at 1208, Intra-op/Intra-Proc 1011 (Given - Provider: Aurora Velasco MD)1018 (Given - Provider: Aurora Velasco MD)1112 (Given - Provider: Aurora Velasco MD) LORazepam (ATIVAN) tablet 1 mg 1 mg, Oral, DAILY NEEDED, Starting on Thu03/07/24 at 1551, Until Thu03/11/24 at 1601, Anxiety 1701 (Given - Provider: Kang Morna, RN) 1723 (Given - Provider: Nilda Barrios, RN) 0952 (Given - Provider: Ashlyn Brown, LARRY) magnesium oxide (MAG-OX) tablet 800 mg(Linked Group 2) 800 mg, Oral, ADMINISTER DIRECTED, Starting on Thu03/08/24 at 0811, Until Thu03/11/24 at 1601, See admin instructions, Cardiology Medicine Electrolyte Replacement Protocol, Administer for magnesium level of 1.6-1.9 mg/dL. NOT APPROPRIATE for Dialysis Patients, those with CrCl less than 30 mL/min, weight less than 50 kg; or for history of renal transplant. Draw magnesium level with next day morning labs. 1315 (See Alternative - Provider: Nilda Barrios RN)1318 (See Alternative - Provider: Nilda Barrios RN)1329 (See Alternative - Provider: Nilda Barrios RN)1354 (See Alternative - Provider: Nilda Barrios RN)1358 (See Alternative - Provider: Nilda Barrios RN)1629 (See Alternative - Provider: Nilda Barrios RN) magnesium oxide (MAG-OX) tablet 800 mg(Linked Group 2) 800 mg, Per NG tube, ADMINISTER DIRECTED, Starting on Thu03/08/24 at 0811, Until Thu03/11/24 at 1601, See admin instructions, Cardiology Medicine Electrolyte Replacement Protocol, Administer for magnesium level of 1.6-1.9 mg/dL. NOT APPROPRIATE for Dialysis Patients, those with CrCl less than 30 mL/min, weight less than 50 kg; or for history of renal transplant. Draw magnesium level with next day morning labs. 1315 (See Alternative - Provider: Nilda Barrios RN)1318 (See Alternative - Provider: Nilda Barrios RN)1329 (See Alternative - Provider: Nilda Barrios RN)1354 (See Alternative - Provider: Nilda Barrios RN)1358 (See Alternative - Provider: Nilda Barrios RN)1629 (See Alternative - Provider: Nilda Barrios RN) Magnesium sulfate 4 g in sterile water 50 ml premix IVPB(Linked Group 2) 4 g, Intravenous, Administer over 4 Hours, ADMINISTER DIRECTED, Starting on Thu03/08/24 at 0811, Until Thu03/11/24 at 1601, Other, Cardiology Medicine Electrolyte Replacement Protocol, Administer for Magnesium level less than or equal to 1.5 mg/dL. NOT APPROPRIATE for Dialysis Patients, those with CrCl less than 30 mL/min, weight less than 50 kg; or for history of renal transplant. Repeat Magnesium level eight (8) hours after each infusion if most recent magnesium level is less than 1.3 mg/dL. Draw with next day morning labs after replacements for previous magnesium levels between 1.3-1.9 mg/dL. 1315 ($$New Bag$$ - Provider: Nilda Barrios RN)1318 (Paused - Provider: Nilda Barrios RN)1329 (Restarted - Provider: Nilda Barrios, RN)1354 (Paused - Provider: Nilda Barrios, RN)1358 (Restarted - Provider: Nilda Barrios, RN)1629 (Stopped - Provider: Nilda Barrios, RN) Melatonin tablet 6 mg 6 mg, Oral, DAILY AT BEDTIME NEEDED, Starting on Thu03/07/24 at 1554, Until Thu03/11/24 at 1601, Insomnia Ondansetron (ZOFRAN) tablet 4 mg(Linked Group 3) 4 mg, Oral, EVERY 6 HOURS NEEDED, Starting on Thu03/07/24 at 1554, Until Thu03/11/24 at 1601, Nausea / Vomiting, 1st line for Nausea/Vomiting Ondansetron 4mg/2ml (ZOFRAN) injection 4 mg(Linked Group 3) 4 mg, Intravenous, EVERY 6 HOURS NEEDED, Starting on Thu03/07/24 at 1554, Until Thu03/11/24 at 1601, Nausea / Vomiting, 1st line for Nausea/Vomiting oxyCODONE (ROXICODONE) tablet 5 mg(Linked Group 4) 5 mg, Oral, EVERY 4 HOURS NEEDED, Starting on Viktoriya 03/10/24 at 1116, Until Thu03/11/24 at 1601, Moderate Pain, Severe Pain, PRN for Moderate Pain. Use for Severe Pain if IV not available for use as initial dose. Higher dose may be administred if lower dose was previously documented as ineffective and did not result in adverse effects (RR<10, decrease in level of consciousness)., Post-op/Post-Proc oxyCODONE HCl (ROXICODONE) tablet 10 mg(Linked Group 4) 10 mg, Oral, EVERY 4 HOURS NEEDED, Starting on Viktoriya 03/10/24 at 1116, Until Thu03/11/24 at 1601, Moderate Pain, Severe Pain, PRN for Moderate Pain. Use for Severe Pain if IV not available for use as initial dose. Higher dose may be administred if lower dose was previously documented as ineffective and did not result in adverse effects (RR<10, decrease in level of consciousness), Post-op/Post-Proc Polyethylene glycol (MIRALAX) packet 17 g 17 g, Oral, DAILY NEEDED, Starting on Thu03/07/24 at 1554, Until Thu03/11/24 at 1601, Constipation 1st Line Potassium Bicarb-Citric Acid (Effer-K) 20 MEQ effervescent tablets for oral solution 40-60 mEq(Linked Group 5) 40-60 mEq, Per NG tube, ADMINISTER DIRECTED, Starting on Thu03/08/24 at 0811, Until Thu03/11/24 at 1601, Other, Cardiology Medicine Electrolyte Replacement Protocol, NOT APPROPRIATE for Dialysis Patients, those with CrCl less than 30 mL/min, weight less than 50 kg; or for history of renal transplant. Check magnesium level and administer magnesium prior to potassium replacement if indicated. For Potassium level less than 3 mmol/L administer 40 mEq every 4 hours x2 occurances. Recheck potassium level eight (8) hours after second dose administered. For Potassium level 3-3.5 mmol/L administer 60 mEq once. Recheck potassium level eight (8) hours after administration. For Potassium level 3.6-4.0 mmol/L administer 40 mEq once. Recheck potassium level with morning labs next day. Do not swallow whole. Dissolve completely in 3-4 ounces of water or cold juice before drinking. If administering via J tube, dilute in sterile water, wait for tablet to stop fizzing, swirl the solution and draw into a syringe suitable for attaching to the tube. After administration, flush tube with 15-30 ml water. 0621 (See Alternative - Provider: Danielle Richardson RN) Potassium chloride (K-DUR) tablet ER 40-60 mEq(Linked Group 5) 40-60 mEq, Oral, ADMINISTER DIRECTED, Starting on Thu03/08/24 at 0811, Until Thu03/11/24 at 1601, See admin instructions, Other, Cardiology Medicine Electrolyte Replacement Protocol, NOT APPROPRIATE for Dialysis Patients, those with CrCl less than 30 mL/min, weight less than 50 kg; or for history of renal transplant. Check magnesium level and administer magnesium prior to potassium replacement if indicated. For Potassium level less than 3 mmol/L administer 40 mEq every 4 hours x2 occurances. Recheck potassium level eight (8) hours after second dose administered. For Potassium level 3-3.5 mmol/L administer 60 mEq once. Recheck potassium level eight (8) hours after administration. For Potassium level 3.6-4.0 mmol/L administer 40 mEq once. Recheck potassium level with morning labs next day. 0621 (Given - Provider: Danielle Richardson RN) Vancomycin HCl in NaCl (VANCOCIN) 1,000 mg in 200 ml NS premix IVPB (COMPLETED) 1,000 mg, Intravenous, Administer over 1 Hours, HEARING IMPAIRED TEACHER TO PROCEDURE, 1 dose, Starting on Thu03/08/24 at 0927, Until Viktoriya 03/10/24 at 0926, Other, Preoperative antibiotic, Order should be timed for day of procedure. 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 Vancomycin is preferred agent for device implants, based on national, community and local ([facility]) MRSA rates. Extravasation Risk, Pre-Procedure(Cath) 0845 ($$New Bag$$ - Provider: Nilda Barrios, RN)0926 (Stopped - Provider: Nilda Barrios, RN) Linked Groups Order Group 1: Magnesium sulfate 1 g in dextrose 5% 100 mL premix IVPB (COMPLETED)Jump to med 1 g, Intravenous, at 100 mL/hr, Administer over 60 Minutes, ONCE, 1 dose, On Viktoriya 03/10/24 at 1900 Followed by Magnesium sulfate 1 g in dextrose 5% 100 mL premix IVPB (COMPLETED)Jump to med 1 g, Intravenous, at 100 mL/hr, Administer over 60 Minutes, ONCE, 1 dose, On Viktoriya 03/10/24 at 2000 Group 2: magnesium oxide (MAG-OX) tablet 800 mgJump to med 800 mg, Oral, ADMINISTER DIRECTED, Starting on Thu03/08/24 at 0811, Until Thu03/11/24 at 1601, See admin instructions, Cardiology Medicine Electrolyte Replacement Protocol, Administer for magnesium level of 1.6-1.9 mg/dL. NOT APPROPRIATE for Dialysis Patients, those with CrCl less than 30 mL/min, weight less than 50 kg; or for history of renal transplant. Draw magnesium level with next day morning labs. Or magnesium oxide (MAG-OX) tablet 800 mgJump to med 800 mg, Per NG tube, ADMINISTER DIRECTED, Starting on Thu03/08/24 at 0811, Until Thu03/11/24 at 1601, See admin instructions, Cardiology Medicine Electrolyte Replacement Protocol, Administer for magnesium level of 1.6-1.9 mg/dL. NOT APPROPRIATE for Dialysis Patients, those with CrCl less than 30 mL/min, weight less than 50 kg; or for history of renal transplant. Draw magnesium level with next day morning labs. Or Magnesium sulfate 4 g in sterile water 50 ml premix IVPBJump to med 4 g, Intravenous, Administer over 4 Hours, ADMINISTER DIRECTED, Starting on Thu03/08/24 at 0811, Until Thu03/11/24 at 1601, Other, Cardiology Medicine Electrolyte Replacement Protocol, Administer for Magnesium level less than or equal to 1.5 mg/dL. NOT APPROPRIATE for Dialysis Patients, those with CrCl less than 30 mL/min, weight less than 50 kg; or for history of renal transplant. Repeat Magnesium level eight (8) hours after each infusion if most recent magnesium level is less than 1.3 mg/dL. Draw with next day morning labs after replacements for previous magnesium levels between 1.3-1.9 mg/dL. Group 3: Ondansetron 4mg/2ml (ZOFRAN) injection 4 mgJump to med 4 mg, Intravenous, EVERY 6 HOURS NEEDED, Starting on Thu03/07/24 at 1554, Until Thu03/11/24 at 1601, Nausea / Vomiting, 1st line for Nausea/Vomiting Or Ondansetron (ZOFRAN) tablet 4 mgJump to med 4 mg, Oral, EVERY 6 HOURS NEEDED, Starting on Thu03/07/24 at 1554, Until Thu03/11/24 at 1601, Nausea / Vomiting, 1st line for Nausea/Vomiting Group 4: oxyCODONE (ROXICODONE) tablet 5 mgJump to med 5 mg, Oral, EVERY 4 HOURS NEEDED, Starting on Thu03/10/24 at 1116, Until Thu03/11/24 at 1601, Moderate Pain, Severe Pain, PRN for Moderate Pain. Use for Severe Pain if IV not available for use as initial dose. Higher dose may be administred if lower dose was previously documented as ineffective and did not result in adverse effects (RR<10, decrease in level of consciousness)., Post-op/Post-Proc Or oxyCODONE HCl (ROXICODONE) tablet 10 mgJump to med 10 mg, Oral, EVERY 4 HOURS NEEDED, Starting on Thu03/10/24 at 1116, Until Thu03/11/24 at 1601, Moderate Pain, Severe Pain, PRN for Moderate Pain. Use for Severe Pain if IV not available for use as initial dose. Higher dose may be administred if lower dose was previously documented as ineffective and did not result in adverse effects (RR<10, decrease in level of consciousness), Post-op/Post-Proc Group 5: Potassium chloride (K-DUR) tablet ER 40-60 mEqJump to med 40-60 mEq, Oral, ADMINISTER DIRECTED, Starting on Thu03/08/24 at 0811, Until Thu03/11/24 at 1601, See admin instructions, Other, Cardiology Medicine Electrolyte Replacement Protocol, NOT APPROPRIATE for Dialysis Patients, those with CrCl less than 30 mL/min, weight less than 50 kg; or for history of renal transplant. Check magnesium level and administer magnesium prior to potassium replacement if indicated. For Potassium level less than 3 mmol/L administer 40 mEq every 4 hours x2 occurances. Recheck potassium level eight (8) hours after second dose administered. For Potassium level 3-3.5 mmol/L administer 60 mEq once. Recheck potassium level eight (8) hours after administration. For Potassium level 3.6-4.0 mmol/L administer 40 mEq once. Recheck potassium level with morning labs next day. Or Potassium Bicarb-Citric Acid (Effer-K) 20 MEQ effervescent tablets for oral solution 40-60 mEqJump to med 40-60 mEq, Per NG tube, ADMINISTER DIRECTED, Starting on Thu03/08/24 at 0811, Until Thu03/11/24 at 1601, Other, Cardiology Medicine Electrolyte Replacement Protocol, NOT APPROPRIATE for Dialysis Patients, those with CrCl less than 30 mL/min, weight less than 50 kg; or for history of renal transplant. Check magnesium level and administer magnesium prior to potassium replacement if indicated. For Potassium level less than 3 mmol/L administer 40 mEq every 4 hours x2 occurances. Recheck potassium level eight (8) hours after second dose administered. For Potassium level 3-3.5 mmol/L administer 60 mEq once. Recheck potassium level eight (8) hours after administration. For Potassium level 3.6-4.0 mmol/L administer 40 mEq once. Recheck potassium level with morning labs next day. Do not swallow whole. Dissolve completely in 3-4 ounces of water or cold juice before drinking. If administering via J tube, dilute in sterile water, wait for tablet to stop fizzing, swirl the solution and draw into a syringe suitable for attaching to the tube. After administration, flush tube with 15-30 ml water. FOR RECORDS PERTAINING TO PATIENTS WHO ARE [...] BE BASED ON THE PRIMARY CLINICAL RECORDS. [email or web address] provides no warranty or guarantee of the accuracy or completeness of information in this document.
== END | disposition home or self-care (01) ==
LOC: BIMLAB 09:51
PROVIDERS: Physician Assistant Medical; PCP Internal Medicine; Referring Provider Internal Medicine; Visit Provider Internal Medicine
DX: E78.00 Pure hypercholesterolemia, unspecified (principal)
CPT/HCPCS: 36415; 80061; 80076

== ENCOUNTER 2024-11-05 07:50 | Emergency (ER) | payer MEDICARE, SELFPAY ==
[2024-11-05 07:50] VITALS: BP 118/80; PULSE 87; RESP 22; TEMP 36.4; O2SAT 100; BMI 18.4
[2024-11-05 07:54] VITALS: BP 118/80; PULSE 85; RESP 23; TEMP 36.4; O2SAT 100
--- NOTE | 2024-11-05 07:58 | EKG12_ITS ---
Test Reason : SOB Blood Pressure : */* mmHG Vent. Rate : 71 BPM Atrial Rate : 71 BPM P-R Int : * ms QRS Dur : 142 ms QT Int : 446 ms P-R-T Axes : * 75 -82 degrees QTcB Int : 484 ms Ventricular-paced rhythm Abnormal ECG Confirmed by Drew Akhtar ([id number]), assistant editor SOLITARIO BRAY ([id number]) on 11/08/2024 10:29:07 AM Referred By: ROSALINE Confirmed By: Drew Akhtar
--- NOTE | 2024-11-05 08:00 | ED.VIS.DYS ---
HPI History of Present Illness Chief Complaint: Shortness of Breath Informant: patient and spouse/S.O. Onset/Context/Timing Onset: Weeks Context: gradual Timing: Continuous Quality: Positive for Wheezing Current Severity: Mild Maximum Severity: Mild Worsened by: Coughing Relieved by: Rest and Albuterol Associated Symptoms cough and green sputum; Negative for fever or sore throat Chest Pain: Positive for None Narrative Narrative: 63-year-old female history of COPD, diabetes, hypertension and known defibrillator pacemaker. Patient is not on oxygen at home. She said for about a month she has had intermittent shortness of breath and wheezing. At times a cough of brownish or green phlegm. No hemoptysis. No chest pain. She has had a prior history of exacerbations of her COPD like this. She denies any recent hospitalization. Denies any leg pain or swelling. She has never had a blood clot. PE Risk Factors: Negative for Cancer, OCP + Smoking + > 35, Prior DVT or PE, Recent immobilization, Recent surgery or Recent travel Prior similar symptoms: Yes Recent Illness/Hospitalization: No PFSH PFS Medical History Physical debility Tobacco abuse, in remission Activities involving personal bathing and showering Lower extremity weakness Generalized anxiety disorder ICD (implantable cardioverter-defibrillator) battery depletion Malfunction of implantable defibrillator ventricular (ICD) lead Shortness of breath Hypercalcemia Vertigo Chronic diarrhea Weight loss, non-intentional Health care maintenance Hyperlipidemia Nonischemic cardiomyopathy Non-rheumatic tricuspid valve insufficiency Chronic systolic (congestive) heart failure Type 2 diabetes mellitus Chronic sinusitis Vitamin D deficiency Essential (primary) hypertension Hypomagnesemia Sinusitis Electrolyte abnormality Alcoholic cardiomyopathy Dizziness and giddiness Family history of CVA Family history of hyperlipidemia Family history of hypertension COPD (chronic obstructive pulmonary disease) GERD (gastroesophageal reflux disease) Depression with anxiety Cancer of vulva Nicotine dependence in remission Home Medications ?Medication ?Instructions ?Recorded ?Last Taken ?Type cholecalciferol (vitamin D3) 50 50 mcg PO DAILY 01/15/21 Unknown History mcg (2,000 unit) capsule nebulizer accessories #1 ea 07/05/21 Unknown Rx magnesium oxide 400 mg (241.3 mg 400 mg PO TID 01/27/24 Unknown History magnesium) tablet Handicap Parking Placard #1 ea 04/18/24 Unknown Rx potassium chloride 20 mEq 20 meq PO BID #180 tabs 05/31/24 Unknown Rx tablet,extended release(part/cryst) carvedilol 12.5 mg tablet 12.5 mg PO BID #180 tabs 07/18/24 Unknown Rx estradiol 0.5 mg tablet 0.5 mg PO DAILY #90 tabs 07/18/24 Unknown Rx furosemide 40 mg tablet 40 mg PO DAILY #90 tabs 07/18/24 Unknown Rx losartan 25 mg tablet 25 mg PO DAILY #90 tabs 07/18/24 Unknown Rx omeprazole 20 mg capsule,delayed 20 mg PO QDAY #90 caps 07/18/24 Unknown Rx release simvastatin 20 mg tablet 20 mg PO QHS #90 tabs 07/18/24 Unknown Rx albuterol sulfate 2.5 mg/3 mL 2.5 mg (3 mL) inhalation Q4H PRN 09/19/24 Unknown Rx (0.083 %) solution for nebulization shortness of breath or wheezing #180 mL lorazepam 1 mg tablet 1 mg PO DAILY anxiety 1 month #30 10/18/24 Unknown Rx tabs prednisone 20 mg tablet 40 mg (2 x 20 mg) PO DAILY 7 days 11/05/24 Unknown Rx #14 tabs Allergy/AdvReac Type Severity Reaction Status Date / Time chlorhexidine (From Karena-Hex) Allergy Intermediate Rash Verified 11/05/24 07:51 acetaminophen (From Tylenol) Allergy Hives Verified 11/05/24 07:51 amoxicillin (Amoxicillin) Allergy Hives Verified 11/05/24 07:51 amoxicillin trihydrate (From Allergy Hives Verified 11/05/24 07:51 Trimox) codeine Allergy Hives Verified 11/05/24 07:51 diazepam Allergy Hives Verified 11/05/24 07:51 methocarbamol Allergy Rash Verified 11/05/24 07:51 nabumetone Allergy Rash Verified 11/05/24 07:51 Penicillins Allergy Hives Verified 11/05/24 07:51 ranitidine HCl (From Zantac) Allergy Hives Verified 11/05/24 07:51 ropinirole Allergy Rash Verified 11/05/24 07:51 lisinopril AdvReac Intermediate Dry Verified 11/05/24 07:51 hacking cough celecoxib (From Celebrex) AdvReac Nausea/Vom/ Verified 11/05/24 07:51 Diarrhea ciprofloxacin AdvReac Itching Verified 11/05/24 07:51 citalopram hydrobromide AdvReac Other Verified 11/05/24 07:51 (From Celexa) cyclobenzaprine HCl (From AdvReac Nausea Verified 11/05/24 07:51 Flexeril) doxycycline AdvReac Other Verified 11/05/24 07:51 hydrocodone bitartrate (From AdvReac Nausea Verified 11/05/24 07:51 Vicodin) meloxicam AdvReac Other Verified 11/05/24 07:51 naproxen (From Naprosyn) AdvReac Nausea Verified 11/05/24 07:51 omeprazole AdvReac Nausea Verified 11/05/24 07:51 pramipexole AdvReac Other Verified 11/05/24 07:51 Family History Father CVA (cerebral vascular accident) Hypertension Diabetes Cancer Mother Diabetes Hypertension Surgical History H/O vulvectomy (~11/2021) History of left heart catheterization (12/31/05) Presence of biventricular implantable cardioverter-defibrillator (ICD) (04/2017) H/O: hysterectomy excision of cancer of vulva Hx of cholecystectomy Social History Smoking Status: Heavy Smoker (>10/day) alcohol intake: former substance use type: does not use caffeine: Yes Type: carbonated beverages Number of servings: 4 and coffee what type of physical activity do you participate in: none additional social history: -Adam ROS ROS ED ROS Narrative Shortness of breath, wheezing, cough. Green to brown sputum. No chest pain. Constitutional Constitutional ED: Denies chills or fever(s) Eyes Eyes: Denies blurry vision ENT ENT ED: Denies ear pain Cardiovascular Cardiovascular: Denies chest pain Respiratory/Chest Respiratory/Chest: Reports cough, dyspnea and sputum Gastrointestinal Gastrointestinal: Reports diarrhea; Denies abdominal pain, melena, nausea or vomiting Genitourinary Genitourinary ED: Denies dysuria or hematuria Musculoskeletal Musculoskeletal: Denies arthralgias or back pain Integumentary Denies abscess Neurologic Neurologic: Denies headache(s) Psychiatric Psychiatric: Denies anxiety Endocrine Endocrinology: Denies cold intolerance Hematologic/Lymphatic Hematologic/Lymphatic: Denies easy bleeding, easy bruising or lymphadenopathy Allergic/Immunologic Allergic/Immunologic ED: Denies mouth swelling, tongue swelling or urticaria EXAM Physical Exam Narrative Exam Narrative: 53-year-old female sitting upright in bed. Vital signs are stable. She is afebrile. On room air pulse ox 100%. Patient is very thin. Cachectic. H EENT exam pupils round reactive light. Mildly dry mucous membranes. Neck nontender no JVD. Lungs coarse breath sounds bilaterally. Few scattered wheezes. No rales or rhonchi. Equal symmetrical. Heart regular rhythm rate about 85 no murmur. Chest wall ribs nontender. No subcu air. Abdomen soft nontender. Normal bowel sounds without peritoneal signs. Moving all 4 extremities. Thin. Calves are nontender without edema or cords. Normal compliance assistant strength. Normal dorsi plantarflexion. Back nontender. Neurologically she is awake and alert. Answering questions following commands. Const Vital Signs: 11/05/24 07:50 11/05/24 07:54 11/05/24 07:54 Temperature 97.6 F L 97.6 F L Temperature Source Axillary Axillary Pulse Rate 87 85 Respiratory Rate 22 H 23 H Respiratory Effort Short of Breath Respiratory Depth Normal Respiratory Pattern Normal Blood Pressure 118/80 118/80 Blood Pressure Mean 92 92 Pulse Ox 100 100 Oxygen Delivery Method Room Air Room Air Room Air 11/05/24 08:01 11/05/24 08:06 11/05/24 08:12 Temperature Temperature Source Pulse Rate 67 Respiratory Rate 20 H Respiratory Effort Normal Respiratory Depth Respiratory Pattern Normal Blood Pressure Blood Pressure Mean Pulse Ox Oxygen Delivery Method Room Air 11/05/24 08:50 11/05/24 09:54 Temperature 97.5 F L 97.8 F Temperature Source Oral Oral Pulse Rate 65 80 Respiratory Rate 22 H 18 Respiratory Effort Respiratory Depth Respiratory Pattern Blood Pressure 95/59 L 111/65 Blood Pressure Mean 71 80 Pulse Ox 96 100 Oxygen Delivery Method Room Air Room Air Positive well nourished, well developed and cachectic; Negative for obese, contractures or unkempt General Appearance ED: well developed, cachectic and NAD; Negative for unkempt or contractures Nutritional Appearance: cachectic; Negative for obese HEENT Reports moist mucous membranes atraumatic; Negative for trauma or tenderness Eyes PERRL and EOMs intact bilaterally Neck no lymphadenopathy, supple, no meningeal signs and no JVD Resp No normal respiratory effort and No clear to auscultation bilaterally Resp Narrative: Increased respiratory effort. Exam consistent with COPD. Auscultation: wheezes Cardio regular rate, regular rhythm, S1 normal heart sound, S2 normal heart sound and no murmurs GI non-tender, non-distended and no masses Auscultation: normoactive bowel sounds Palpation: soft; Negative for tender, guarding or rebound tenderness present Back/Spine no CVA tenderness and normal to inspection General Back: Negative for CVA tenderness or tenderness Extremity normal to inspection General Extremety ED: Negative for edema or tenderness General Extremity: Negative for edema Neuro oriented x3 and CN's II-XII intact bilaterally Sensorium / Orientation: alert, oriented to person, oriented to place and oriented to time; Negative for orientation impaired, confused, lethargic or stuporous Speech: speech normal Motor Exam: strength 5/5 throughout Psych mental status grossly normal Appearance: Negative for unkempt Attitude: No agitated Mood & Affect: Negative for depressed, anxious or tearful Thought Process: normal thought process Skin no wounds General Skin Exam: Negative for jaundice Lesions: no lesions Rashes: no rashes MDM MDM MDM Narrative Medical decision making narrative: 63-year-old female complaining shortness of breath for weeks to a month. Adductive cough. Suspect exacerbation of COPD rule out pneumonia. Clinically I doubt this is cardiac. Should be treated with aerosols with albuterol and DuoNeb and IV Solu-Medrol. Cardiac/respiratory workup. No history or risk factors for DVT or PE no physical findings for blood clot. She also had some recent diarrhea and clinically looks dehydrated will be given a liter of fluid. Repeat exam patient is doing well at 10:30 AM. We discussed her test results. She is comfortable being discharged to home. Currently her pulse ox is 99% on room air. Breathing improved post her aerosol treatments. She has a nebulizer at home. She be placed on prednisone 40 mg a day for a week. Follow-up with her primary care provider. Return if worse. History & Record Review Discussion w/independent historian: Patient and Family Additional record(s) reviewed:: Prior inpatient record, Prior outpatient record, Prior ED visit and Prior labs Lab Data Attestation: I reviewed the patient's lab results. Lab results narrative: CBC shows a normal white count of 10. H&H 15 and 45. Platelets 152. Chemistry shows sodium 130. Gap 15. Normal BUN 19 creatinine 1. Glucose 150. COVID-positive on the swab. Chest x-ray chronic changes no pneumonia. Labs: Laboratory Results - last 24 hr 11/05/24 07:53 WBC 10.0 RBC 4.88 Hgb 15.5 H Hct 45.0 MCV 92.2 MCH 31.8 MCHC 34.4 RDW Std Deviation 42.2 RDW Coeff of Pritesh 12.3 Plt Count 152 MPV 10.7 Immature Gran % (Auto) 0.800 Neut % (Auto) 77.9 H Lymph % (Auto) 9.4 L [place] % (Auto) 11.7 H Eos % (Auto) 0.0 Baso % (Auto) 0.2 Absolute Neuts (auto) 7.8 H Absolute Lymphs (auto) 0.94 Nucleated RBC % 0 Sodium 130 L Potassium 4.5 Chloride 91 L Carbon Dioxide 25.1 Anion Gap 15 BUN 19 Creatinine 1.05 Estim Creat Clear Calc 42.80 L Est GFR (MDRD) Non-Af 60 BUN/Creatinine Ratio 18.1 Glucose 150 H Calcium 9.8 Radiography Chest X-Ray - ED: 2 View, Read by ED Physician, Normal, Heart, Lungs, Mediastinum, Bony Structures, No Acute Disease and Chronic Changes Diagnostic Testing: Clinical Impression(s) from Imaging Studies Chest X-Ray 11/05/24 08:25 IMPRESSION: No evidence of acute cardiopulmonary pathology. Reading Location: [id number] Chest x-ray, 2 views, AP and lateral, interpreted by myself and the radiologist. Shows no acute abnormality. Chronic changes. Normal cardiac silhouette. No pneumonia. No pneumothorax. Left-sided pacemaker defibrillator. Rhythm Strip Rhythm Strip: Paced rhythm Rate: 71 Ectopy: None EKG Initial EKG: Attestation: I personally reviewed and interpreted this EKG as follows: Interpretation: No Acute Injury Pattern and Paced Comments: Ventricular paced rhythm rate of 71. No acute signs of MD or ischemia. Prior EKG tracings: available for review Prior: Unchanged Discharge Plan Triage Chief Complaint: Shortness of Breath ED Provider: Jorge Luis Post Dx/Rx/DC Orders Clinical Impression: COPD exacerbation, COVID, History of diabetes mellitus, History of cardiac defibrillator placement Instructions: Caring for Someone Who Has COVID-19, ED COPD Flare Prescriptions: New prednisone 20 mg tablet 40 mg PO DAILY 7 Days Qty: 14 0RF No Action magnesium oxide 400 mg (241.3 mg magnesium) tablet 400 mg PO TID Patient Comments: CYP cholecalciferol (vitamin D3) 50 mcg (2,000 unit) capsule 50 mcg PO DAILY (DME) nebulizer accessories Misc See Rx Instructions .ROUTE .MEDSUPPLY Qty: 1 3RF Rx Instructions: As directed (DME) Handicap Parking Placard See Rx Instructions .Route .MEDSUPPLY Qty: 1 0RF Rx Instructions: As directed potassium chloride 20 mEq tablet,ER particles/crystals 20 meq PO BID Qty: 180 3RF carvedilol 12.5 mg tablet 12.5 mg PO BID Qty: 180 3RF Rx Instructions: must administer with a meal/food furosemide 40 mg tablet 40 mg PO DAILY Qty: 90 3RF losartan 25 mg tablet 25 mg PO DAILY Qty: 90 3RF simvastatin 20 mg tablet 20 mg PO QHS Qty: 90 3RF estradiol 0.5 mg tablet 0.5 mg PO DAILY Qty: 90 1RF omeprazole 20 mg capsule,delayed release(DR/EC) 20 mg PO QDAY Qty: 90 2RF albuterol sulfate 2.5 mg /3 mL (0.083 %) solution for nebulization 2.5 mg inhalation Q4H PRN (Reason: shortness of breath or wheezing) Qty: 180 2RF lorazepam 1 mg tablet 1 mg PO DAILY 30 Days Qty: 30 0RF Primary Care Provider: Yosi Evans Referrals: Yosi Evans MD [Primary Care Provider] - As Needed Activity Restrictions/Additional Instructions: Plenty of fluids and rest. Use your nebulizer at home as needed. You have COVID or viral infection of your lungs. The steroids prednisone 40 mg a day for 7 days start tomorrow. We gave you steroids to your IV today. Follow-up with your doctor as needed. Return if feeling a lot worse. Print Language: Swedish Disposition Disposition: Home, Self Care
[2024-11-05] MEDS: Albuterol 2.5 MG/3 ML VIAL.NEB. INHALATION (08:05)
[2024-11-05] MEDS: 0.9% Normal Saline (1000mL) 1,000 ML 999 ML IV ×2 (08:05→09:53)
[2024-11-05 08:06] VITALS: PULSE 67; RESP 20
[2024-11-05 08:07] LABS: Hematocrit 45.0 % (37-47); Hemoglobin 15.5 g/dL (12.0-15.0); Immature Granulocytes Count 0.080 X10^3/uL (0.0-0.0); Mean Corp Hgb Conc 34.4 g/dL (32-36); Mean Corpuscular Volume 92.2 fL (81-99); Mean Platelet Vol. 10.7 fl (6.2-12.0); NRBC Flagged by Analyzer 0 % (0-5); Platelet Count 152 K/mm3 (150-450); RBC Distribution Width CV 12.3 % (11.6-14.6); RBC Distribution Width SD 42.2 fl (35.1-43.9); Red Blood Count 4.88 M/mm3 (4.2-5.4); White Blood Count 10.0 K/mm3 (4.4-11.0)
[2024-11-05 08:25] LABS: Anion Gap 15 (5-15); BUN 19 mg/dL (4-19); BUN/Creat Ratio 18.1 RATIO (10-20); Calcium,Total 9.8 mg/dL (7.6-11.0); Carbon Dioxide 25.1 mmol/L (21.0-32.0); Chloride 91 mmol/L (98-108); Estimated Creatinine Clearance 42.80 ml/min (50-250); Glucose 150 mg/dL (70-99); Potassium 4.5 mmol/L (3.3-5.1)
--- NOTE | 2024-11-05 08:25 | RAD_ITS ---
PROCEDURE: CHEST PA AND LATERAL 11/05/2024 REASON FOR EXAM: COUGH, SHORTNESS OF BREATH, COPD HISTORY TECHNIQUE: Procedure Code: RADCXR Modality: DX Procedure: CHEST PA AND LATERAL COMPARISON: Two-view chest, 02/16/2024. FINDINGS: The lungs are clear. The heart borders mediastinum and pulmonary vascular pattern are normal. There is a multi lead pacemaker cardioverter. There are no bony abnormalities of the chest. RAD/Chest PA and Lateral IMPRESSION: No evidence of acute cardiopulmonary pathology. Reading Location: [id number]
--- OUTSIDE RECORDS SUMMARY | 2024-11-05 08:36 | XMS RPT_ITS | CCD ---
Author Organization [facility] Care Team Providers Care Harness Cutter Name Role Phone Dr. Martin Evans Primary [...] Dr. Martin Evans Attending Provider [phone] Dr. Matrin Evans Referring Provider [phone] Dr. Stewart Diane Attending Provider Sam DISH WASHER, DISH WASHER-C Emma Attending Provider Dr. Joanie Tran Attending Provider [phone] Dr. Martin Evans Primary Care Provider [phone] Dr. Martin Evans Attending Provider [phone] Dr. Martin Evans Referring Provider [phone] Dr. Stewart Diane Attending Provider [phone] Sam CHRISTIANSON, DISH WASHER-C Emma Attending Provider Dr. Joanie Tran Attending Provider [phone]) Aliyah Aguilar Attending Provider Unavailable Martin Evans MD Primary Care Provider 1(3 [phone]) Stewart Diane MD Unavailable DIXON HENNESSY Attending Unavailable EDITH EVANSBE B Primary Care Unavailable STEWART DIANE Referring Unavailable MARTIN EVANS B Primary Care Unavailable JERRI MENDOZA Attending Unavailable JOSE AKINS Admitting Unavailable CONSULT, [...] Dr. Stewart Diane MD Referring Provider [phone] Cristina LEDESMA, Dr. Salazar Primary Care Provider Cristina LEDESMA, Dr. Salazar Referring Provider [phone] Benedicto LEDESMA, Dr. William Attending Provider [phone]) Cristina LEDESMA, Dr. Salazar Attending Provider [phone] Aliyah Aguilar Attending Provider Unavailable Cristina LEDESMA, Dr. Salazar Primary Care Provider Cristina LEDESMA, Dr. Salazar Referring Provider [phone] Benedicto LEDESMA, Dr. William Attending Provider [phone]) Cristina LEDESMA, Dr. Salazar Referring Provider [phone] Benedicto LEDESMA, Dr. William Attending Provider [phone]) Cristina LEDESMA, Dr. Salazar Primary Care Provider Cristina LEDESMA, Dr. Salazar Attending Provider [phone] [phone]) Aliyah Aguialr Attending Provider Unavailable Emma Dimas Attending Provider 1(330) Oleghe, Efewongbe Primary Care Unavailable Benedicto, Stewart Attending Unavailable Benedicto, Linn Referring Unavailable Oleghe, Efewongbe Attending Unavailable Oleghe, Efewongbe Referring Unavailable Oleghe, Efewongbe Primary Care Unavailable Benedicto, Linn Attending Unavailable Oleghe, Efewongbe Primary Care Unavailable Oleghe, Efewongbe Referring Unavailable Oleghe, Efewongbe Attending Unavailable Oleghe, Efewongbe Primary Care Unavailable Oleghe, Efewongbe Primary Care Unavailable Oleghe, Efewongbe Attending Unavailable Oleghe, Efewongbe Referring Unavailable Oleghe, Efewongbe Referring Unavailable Oleghe, Efewongbe Attending Unavailable Oleghe, Efewongbe Primary Care Unavailable Benedicto, Stewart Referring Unavailable Benedicto, Stewart Attending Unavailable Oleghe, Efewongbe Primary Care Unavailable Alfonzo Rahman Attending Unavailable Oleghe, Efewongbe Primary Care Unavailable Benedicto, Stewart Consulting Unavailable Benedicto, Linn Attending Unavailable Oleghe, Efewongbe Primary Care Unavailable Roof DISH WASHER, Rudolph H Attending Unavailable Oleghe, Efewongbe Referring Unavailable Oleghe, Efewongbe Primary Care Unavailable Oleghe, Efewongbe Primary Care Unavailable Benedicto, Stewart Attending Unavailable Benedicto, Linn Attending Unavailable Oleghe, Efewongbe Primary Care Unavailable Oleghe, Efewongbe Primary Care Unavailable Oleghe, Efewongbe Referring Unavailable Benedicto, Linn Attending Unavailable Oleghe, Efewongbe Primary Care Unavailable Benedicto, Linn Attending Unavailable Oleghe, Efewongbe Primary Care Unavailable Oleghe, Efewongbe Referring Unavailable Benedicto, Linn Attending Unavailable Oleghe, Efewongbe Referring Unavailable Benedicto, Stewart Attending Unavailable Oleghe, Efewongbe Primary Care Unavailable Oleghe, Efewongbe Attending Unavailable Oleghe, Efewongbe Referring Unavailable Oleghe, Efewongbe Primary Care Unavailable Oleghe, Efewongbe Referring Unavailable Oleghe, Efewongbe Attending Unavailable Oleghe, Efewongbe Primary Care Unavailable Oleghe, Efewongbe Referring Unavailable Benedicto, Linn Attending Unavailable Oleghe, Efewongbe Primary Care Unavailable Sam CHRISTIANSON, Emma Attending Unavailable Oleghe, Efewongbe Referring Unavailable Oleghe, Efewongbe Primary Care Unavailable Roof DISH WASHER, Rudolph H Consulting Unavailable Roof DISH WASHER, Rudolph H Referring Unavailable Benedicto, Stewart Attending Unavailable Oleghe, Efewongbe Primary Care Unavailable Sam CHRISTIANSON, Emma Attending Unavailable Oleghe, Efewongbe Primary Care Unavailable Benedicto, Stewart Attending Unavailable Oleghe, Efewongbe Primary Care Unavailable Roof DISH WASHER, Rudolph H Attending Unavailable Roof DISH WASHER, Rudolph H Referring Unavailable Oleghe, Efewongbe Primary Care Unavailable Oleghe, Efewongbe Referring Unavailable Benedicto, Stewart Attending Unavailable Oleghe, Efewongbe Primary Care Unavailable Oleghe, Efewongbe Primary Care Unavailable Benedicto, Stewart Attending Unavailable Oleghe, Efewongbe Primary Care Unavailable Oleghe, Efewongbe Attending Unavailable Oleghe, Efewongbe Referring Unavailable Oleghe, Efewongbe Referring Unavailable Benedicto, Linn Attending Unavailable Oleghe, Efewongtyron Primary Care Unavailable Benedicto, Stewart Attending Unavailable [facility], Efdionongtyron Primary [facility] Referring Unavailable Eoncwesley, Janongbe Attending Unavailable Sam DISH WASHER, Emma Attending Unavailable Sam DISH WASHER, Emma Referring [facility]available [facility] Primary Care Unavailable Allergies Allergy Classification Reported Allergen(s) Allergy Type Date of Onset Reaction(s) Facility (18 sources) Acetaminophen; Translations: [acetaminophen] Drug Allergy 07-06-19 Weal (disorder) [facility] (20 sources) Amoxicillin; Translations: [amoxicillin] Drug Allergy 07-06-19 Weal (disorder), Nausea Only [facility] (18 sources) Amoxicillin; Translations: [amoxicillin trihydrate] Drug Allergy 07-06-19 [facility] (18 sources) celecoxib; Translations: [celecoxib] Drug Allergy 07-06-19 Vomiting (disorder), Nausea (finding), Diarrhea (finding) [facility] (18 sources) Cholecalciferol; Translations: [cholecalciferol] Drug Allergy 07-06-19 Eruption of skin (disorder) [facility] Comment on above: Sores, was on the 50 ,000 units (18 sources) Ciprofloxacin; Translations: [ciprofloxacin] Drug Allergy 07-06-19 Itching (finding) [facility] (19 sources) Citalopram; Translations: [Citalopram] Drug Allergy 07-06-19 Unknown (qualifier value) [facility] Comment on above: MENTAL STATUE CHANGE (20 sources) Codeine; Translations: [codeine] Drug Allergy 02-03-20 06 [facility] (18 sources) cyclobenzaprine; Translations: [cyclobenzaprine HCl] Drug Allergy 07-06-19 Nausea [facility] (18 sources) diazePAM; Translations: [diazepam] Drug Allergy 07-06-19 Weal (disorder) [facility] (20 sources) Doxycycline; Translations: [doxycycline] Drug Allergy 10-29-19 05 Unknown (qualifier value) [facility] Comment on above: INTOLERANCE (19 sources) HYDROcodone; Translations: [Hydrocodone] Drug Allergy 04-29-20 22 Nausea (finding) [facility] (18 sources) Lisinopril; Translations: [lisinopril] Drug Allergy 07-06-19 22 Cough (finding) [facility] (18 sources) meloxicam; Translations: [meloxicam] Drug Allergy 07-06-19 22 Unknown (qualifier value) [facility] Comment on above: INTOLERANCE (18 sources) Methocarbamol; Translations: [methocarbamol] Drug Allergy 07-06-19 Eruption of skin (disorder) [facility] (18 sources) nabumetone; Translations: [nabumetone] Drug Allergy 07-06-19 Eruption of skin (disorder) [facility] (20 sources) Naproxen; Translations: [naproxen] Drug Allergy 10-29-19 05 Nausea (finding), Dyspepsia [facility] (18 sources) Omeprazole; Translations: [omeprazole] Drug Allergy 07-06-19 Nausea (finding) [facility] (20 sources) Penicillins; Translations: [Penicillins] Allergy to substance 10-29-19 05 Hives, Itching [facility] (18 sources) Pramipexole; Translations: [pramipexole] Drug Allergy 07-06-19 Unknown (qualifier value) [facility] (18 sources) raNITIdine; Translations: [ranitidine HCl] Drug Allergy 07-06-19 22 [facility] (20 sources) rOPINIRole; Translations: [ropinirole] Drug Allergy 05-12-19 13 Eruption of skin (disorder), Rash [facility] (3 sources) cyclobenzaprine; Translations: [cyclobenzaprine] Drug Allergy 11-30-19 11 Nausea (finding), Dyspepsia [facility] (3 sources) raNITIdine; Translations: [ranitidine] Drug Allergy 03-10-19 14 Weal (disorder), Hives [facility] (2 sources) Acetaminophen / HYDROcodone Drug Allergy 10-29-19 05 Dyspepsia [facility] (2 sources) celecoxib Drug Allergy 10-29-19 05 Dyspepsia [facility] (10 sources) Chlorhexidine Drug Allergy 03-07-20 24 Rash [facility] (2 sources) Ciprofloxacin Drug Allergy 11-30-19 11 Itching [facility] (2 sources) Citalopram Drug Allergy 11-02-19 08 [facility] (2 sources) Diazepam Propensity to adverse reactions to drug 10-29-19 05 Hives [facility] (2 sources) Lisinopril Propensity to adverse reactions to drug 03-07-20 24 Cough [facility] (2 sources) meloxicam Drug Allergy 11-30-19 11 [facility] (2 sources) Menthol / pectin Drug Allergy 10-29-19 05 [facility] (2 sources) Methocarbamol Drug Allergy 08-11-19 13 Rash [facility] (2 sources) nabumetone Drug Allergy 03-07-20 24 Rash [facility] (2 sources) Pramipexole Drug Allergy 06-12-19 13 [facility] (2 sources) Sulfamethoxazole Propensity to adverse reactions to drug 08-18-19 11 Itching [facility] (2 sources) Hydrocodone-Guaifen esin Propensity to adverse reactions to drug 10-29-19 05 [facility] (1 source) Acetaminophen Drug Allergy 10-26-19 25 [facility] (1 source) Amoxicillin Drug Allergy 10-26-19 25 [facility] (1 source) celecoxib Drug Allergy 10-26-19 25 [facility] (1 source) Chlorhexidine Drug Allergy 10-26-19 25 [facility] (1 source) Cholecalciferol Drug Allergy 10-26-19 25 [facility] (1 source) Ciprofloxacin Drug Allergy 10-26-19 25 [facility] (1 source) Codeine Drug Allergy 10-26-19 25 [facility] (1 source) diazePAM Drug Allergy 10-26-19 [facility] (1 source) Doxycycline Drug Allergy 10-26-19 25 [facility] (1 source) Lisinopril Drug Allergy 10-26-19 25 [facility] (1 source) meloxicam Drug Allergy 10-26-19 25 [facility] (1 source) Methocarbamol Drug Allergy 10-26-19 [facility] (1 source) nabumetone Drug Allergy 10-26-19 [facility] (1 source) Naproxen Drug Allergy 10-26-19 [facility] (1 source) Omeprazole Drug Allergy 10-26-19 [facility] (1 source) Pramipexole Drug Allergy 10-26-19 [facility] (1 source) rOPINIRole Drug Allergy 10-26-19 [facility] Medications Current Medications Medication Drug Class(es) Dates Sig (Normalized) Sig (Original) albuterol 0.83 mg/ml inhalation solution (20 sources) beta2-Adrenergic Agonist Start: 07-06-2024 End: 09-19-2024 take 2.5 mg by inhalation every four hours as needed for wheezing Albuterol Sulfate 2.5 mg /3 mL (0.083 %) solution for nebulization Active 2.5 mg INHALATION Q4H as needed for shortness of breath or wheezing 180 2 September 19, 2024 8:16pm Start: 07-06-2024 Start: 02-26-2024 take 2.5 mg by inhal ation every four hours as needed Albuterol (2.5 MG/3ML) 0.083% inhalation solution Take 3 mL by nebulization every 4 hours as needed. 02/26/2024 Active Start: 07-07-2022 End: 03-25-2024 take 2.5 mg by inhalation every four hours as needed for wheezing Albuterol Sulfate 2.5 mg /3 mL (0.083 %) solution for nebulization Discontinued 2.5 mg INHALATION Q4H as needed for shortness of breath or wheezing 90 February 25, 2024 11:59am March 25, 2024 1:51pm Start: 07-07-2022 End: 03-25-2024 Start: 05-08-2022 End: 07-07-2022 take 2.5 mg by inhalation every four hours Albuterol Sulfate Discontinued 2.5 MG INHALATION Q4H 90 May 08, 2022 1:00am July 07, 2022 10:53am Start: 05-08-2022 End: 07-07-2022 take 2.5 mg by inhalation every four hours Albuterol Sulfate Discontinued 2.5 MG INHALATION Q4H 90 May 08, 2022 12:00am July 07, 2022 9:53am Start: 11-23-2018 End: 10-18-2020 take 1.25 mg by inhalation every six hours as needed for wheezing Albuterol Sulfate 2.5 mg /3 mL (0.083 %) solution for nebulization Discontinued 1.25 mg INHALATION EVERY 6 HOURS as needed for shortness of breath or wheezing 540 90 2 August 13, 2020 12:32pm October 18, 2020 8:48am Start: 11-23-2018 End: 10-18-2020 Start: 04-08-2017 End: 10-29-2018 take 2.5 mg by inhalation every six hours as needed for wheezing Albuterol Sulfate 2.5 mg /3 mL (0.083 %) solution for nebulization Discontinued 2.5 mg INHALATION EVERY 6 HOURS as needed for Sob &/Or Wheezing 180 3 April 13, 2018 5:54pm October 29, 2018 9:12am Start: 06-01-2014 End: 04-08-2017 take 2.5 mg by inhalation every four hours as needed for wheezing Albuterol Sulfate 2.5 MG/3 ML solution for nebulization Discontinued 2.5 mg INHALATION EVERY 4 HOURS NEEDED as needed for Sob &/Or Wheezing June 01, 2014 12:00am April 08, 2017 4:35pm Start: 06-01-2014 End: 10-29-2018 carvedilol 12.5 mg oral tablet (20 sources) alpha-Adrenergic Kemal, beta-Adrenergic Kemal Start: 02-03-2024 End: 07-18-2024 take 1 tablet by mouth twice daily at mealtime Carvedilol 12.5 mg tablet Active 12.5 mg PO TWICE A DAY 180 3 July 18, 2024 9:08am must administer with a meal/food Start: 02-03-2024 End: 03-11-2024 take 12.5 mg by mouth every twelve hours 12.5 mg, Oral, EVERY 12 HOURS, First dose on Thu03/07/24 at 1800, Until Discontinued Start: 12-09-2023 End: 02-03-2024 take 2 tablets by mouth twice daily at mealtime Carvedilol (Coreg) 6.25 mg tablet Discontinued 12.5 mg PO TWICE A DAY 60 January 264 10:47am February 03, 2024 2:04pm must administer with a meal/food Start: 12-09-2023 End: 01-27-2024 take 1 tablet by mouth twice daily at mealtime Carvedilol (Coreg) 6.25 mg tablet Discontinued 6.25 mg PO TWICE A DAY 60 11 January 06, 2024 8:51am January 27, 2024 10:48am must administer with a meal/food Handicap Parking Placard (3 sources) Start: 04-18-2024 Handicap Parki ng Placard Active 0 .Route .MEDSUPPLY 1 0 April 18, 2024 1:00am Lifetime: Renew 04/18/2029 As directed Nebulizer Accessories (20 sources) Start: 07-05-2021 Nebulizer Acce ssories Active 0 .ROUTE .MEDSUPPLY 1 July 05, 2021 8:34am As directed Start: 07-05-2021 Nebulizer Acce ssories Active 0 .ROUTE .MEDSUPPLY 1 July 05, 2021 9:34am As directed Start: 04-08-2021 End: 07-05-2021 Nebulizer Accessories Discon tinued 0 .ROUTE .MEDSUPPLY 1 April 08, 2021 4:13pm July 05, 2021 9:34am As directed Start: 04-08-2021 End: 07-05-2021 Nebulizer Accessories Discon tinued 0 .ROUTE .MEDSUPPLY April 08, 2021 12:00am July 05, 2021 8:34am As directed Start: 04-08-2021 End: 07-05-2021 Nebulizer Accessories Discon tinued 0 .ROUTE .MEDSUPPLY April 08, 2021 1:00am July 05, 2021 9:34am As directed Start: 11-23-2018 End: 12-24-2018 Nebulizer Accessories Discon tinued 0 .ROUTE .MEDSUPPLY 50 November 23, 2018 1:17pm December 24, 2018 10:58am As directed Start: 11-23-2018 End: 12-24-2018 Nebulizer Accessories Discon tinued 0 .ROUTE .MEDSUPPLY 50 November 22, 2018 11:00pm December 24, 2018 9:58am As directed Start: 11-23-2018 End: 12-24-2018 Nebulizer Accessories Discon tinued 0 .ROUTE .MEDSUPPLY 50 November 23, 2018 12:00am December 24, 2018 10:58am As directed Nebulizer Accessories misc (9 sources) Start: 07-05-2021 Nebulizer Acce ssories misc Active 0 .ROUTE .MEDSUPPLY 1 3 July 05, 2021 9:34am Chronic obstructive pulmonary disease Chronic obstructive pulmonary disease, unspecified As directed Start: 04-08-2021 End: 07-05-2021 Nebulizer Accessories misc D iscontinued 0 .ROUTE .MEDSUPPLY 1 0 April 08, 2021 1:00am July 05, 2021 9:34am Chronic obstructive pulmonary disease Chronic obstructive pulmonary disease, unspecified As directed Start: 11-23-2018 End: 12-24-2018 Nebulizer Accessories misc D iscontinued 0 .ROUTE .MEDSUPPLY 50 November 23, 2018 12:00am December 24, 2018 10:58am Chronic obstructive pulmonary disease, unspecified As directed Vitamin D3 50 mcg (2000 [...] Wheezing, Respiratory Distress Start: 07-14-2019 End: 05-08-2022 take 1 mL by inhalation twice daily Ipratropium-Albuterol 0.5 mg-3 mg(2.5 mg base)/3 mL solution for nebulization Discontinued 3 mL INHALATION TWICE A DAY 180 3 May 05, 2022 2:31pm May 08, 2022 3:49pm Start: 07-14-2019 End: 05-08-2022 Start: 07-14-2019 End: 05-08-2022 take 1 mL by inhalation twice daily Ipratropium-Albuterol Discontinued 3 ML INHALATION TWICE A DAY 180 May 05, 2022 2:31pm May 08, 2022 3:49pm Albuterol Sulfate 2.5 mg /3 mL (0.083 %) solution for nebulization (6 sources) Start: 03-25-2024 End: 07-06-2024 take 2.5 mg by inhalation every four hours as needed for wheezing Albuterol Sulfate 2.5 mg /3 mL (0.083 %) solution for nebulization Discontinued 2.5 mg INHALATION Q4H as needed for shortness of breath or wheezing 180 2 March 25, 2024 1:50pm July 06, 2024 12:56pm Start: 05-08-2022 End: 07-07-2022 take 2.5 mg by inhalation every four hours as needed for wheezing Albuterol Sulfate 2.5 mg /3 mL (0.083 %) solution for nebulization Discontinued 2.5 mg INHALATION Q4H as needed for shortness of breath or wheezing 90 3 May 08, 2022 1:00am July 07, 2022 10:53am aluminum hydroxide 40 mg/ml / magnesium hydroxide [...] oral tablet (20 sources) Macrolide Antimicrobial Start: 11-23-2019 End: 06-29-2020 Azithromycin 250 mg tablet Discontinued 0 PO .COMPLEX 6 0 November 23, 2019 12:00am June 29, 2020 10:59am Take two tablets by mouth on day one then one tablet by mouth on days 2-5 Start: 11-09-2019 End: 06-29-2020 take 2-5 tablets by mouth once daily Azithromycin 250 mg tablet Discontinued 0 PO .COMPLEX 6 0 November 09, 2019 12:00am November 23, 2019 9:20am take 500 mg today (day 1), then 250 mg for 4 days (days 2-5) PO Start: 10-13-2018 End: 02-15-2019 Azithromycin 250 mg tablet Discontinued 0 PO .COMPLEX 6 0 January 05, 2019 4:52pm February 15, 2019 3:59pm Take two tablets by mouth on day one then one tablet by mouth on days 2-5 Start: 11-24-2017 End: 06-11-2018 take 2-5 tablets by mouth once daily Azithromycin 250 mg tablet Discontinued 0 PO .COMPLEX 6 0 May 05, 2018 5:29pm June 11, 2018 2:08pm take 500 mg today (day 1), then 250 mg for 4 days (days 2-5) PO Start: 07-06-2017 End: 07-06-2017 take 1 tablet by mouth once daily Azithromycin 500 mg tablet Discontinued 500 mg PO daily 5 5 0 July 06, 2017 12:00am July 10, 2017 12:00am July 06, 2017 9:28am Aztreonam (AZACTAM) 2 g in sterile water (PF) 10 mL syringe (2 sources) Start: 03-10-2024 End: 03-10-2024 2 g, Intravenous, Administer over 3 Minutes, INLAYER TO PROCEDURE, 1 dose, Starting on Viktoriya 03/10/24 at 0626, Until Viktoriya 03/10/24 at 0949, Other calcium carbonate 1500 mg oral tablet (20 sources) Start: 08-18-2023 End: 12-08-2023 take 1 tablet by mouth once daily Calcium Carbonate 600 mg calcium (1,500 mg) tablet Discontinued 600 mg PO daily 180 August 27, 2023 1:49pm December 08, 2023 2:45pm Start: 04-06-2017 End: 08-18-2023 take 1 tablet by mouth twice daily Calcium Carbonate 600 mg calcium (1,500 mg) tablet Discontinued 600 mg PO TWICE A DAY 180 February 11, 2023 11:26am August 18, 2023 8:54am Start: 04-06-2017 End: 12-08-2023 cetirizine hydrochloride 10 mg oral tablet (17 sources) Histamine-1 Receptor Antagonist Start: 09-21-2019 End: 10-18-2020 take 1 tablet by mouth once daily as needed Cetirizine (Zyrtec) 10 mg tablet Discontinued 10 mg PO DAILY as needed for allergy symptoms 30 September 21, 2019 12:00am October 18, 2020 8:47am cholecalciferol 0.05 mg oral tablet (20 sources) Vitamin D Start: 03-08-2024 End: 03-11-2024 take 1 tablet by mouth every twenty-four hours 2,000 Units, Oral, EVERY 24 HOURS, First dose (after last modification) on Thu03/08/24 at 0600, Until Discontinued Start: 01-15-2021 take 1 capsule by [facility] once daily Cholecalciferol (Vitamin D3) 50 mcg (2,000 unit) capsule Active 50 ug PO DAILY January 15, 2021 1:00am Start: 09-18-2017 End: 12-24-2018 take 1 capsule by mouth every other week Cholecalciferol (Vitamin D3) 50,000 unit capsule Discontinued 14981 U PO every 2 weeks 06 12March 18, 2018 4:12pm December 24, 2018 10:54am Start: 09-18-2017 End: 03-18-2018 take 1 capsule by mouth every week Cholecalciferol (Vitamin D3) 50,000 unit capsule Discontinued 49330 U PO EVERY WEEK 06 12February 15, 2018 1:38pm March 18, 2018 4:12pm take 1 tablet by wiliam once daily cholecalciferol 50 MCG (2000 UNIT) tablet Take 1 tablet by mouth daily. Active doxycycline monohydrate 100 mg oral capsule (20 sources) Tetracycline-class Drug Start: 11-23-2019 End: 06-29-2020 take 1 capsule by mouth twice daily Doxycycline Monohydrate 100 mg capsule Discontinued 100 mg PO TWICE A DAY 20 November 23, 2019 9:34am June 29, 2020 11:00am Do not take magnesium or calcium while on this medication Start: 01-05-2019 End: 02-15-2019 take 1 capsule by mouth twice daily Doxycycline Hyclate 100 mg capsule Discontinued 100 mg PO TWICE A DAY 14 January 05, 2019 12:00am February 15, 2019 3:59pm 0.3 ml enoxaparin sodium 100 mg/ml prefilled [...] manually unheld ergocalciferol 0.05 mg oral tablet (17 sources) Provitamin D2 Compound Start: 12-24-2018 End: 01-15-2021 Ergocalciferol (Vitamin D2) 2,000 unit tablet Discontinued 2000 U PO DAILY 90 December 24, 2018 12:00am January 15, 2021 1:53pm estradiol 0.5 mg oral tablet (20 sources) Estrogen Start: 06-01-2014 End: 07-18-2024 take 1 tablet by mouth once daily Estradiol 0.5 mg tablet Discontinued 0.5 mg PO DAILY 90 0 April 28, 2024 6:20pm July 18, 2024 2:34pm Start: 06-01-2014 End: 04-28-2024 take 1 tablet by mouth every twenty-four hours 0.5 mg, Oral, EVERY 24 HOURS, First dose (after last modification) on Thu03/08/24 at 0600, Until Discontinued, Swallow tablet whole; do not crush, split or chew. Contact pharmacy if alternate route or dose is needed. fluticasone propionate 0.05 mg/actuat metered dose nasal spray (17 sources) Corticosteroid Start: 09-20-2019 End: 09-21-2019 take 50 ug nasal route once daily Fluticasone Propionate (Flonase Allergy Relief) 50 mcg/actuation spray,suspension Discontinued 2 NMA INTRANASAL DAILY 15.8 1 September 20, 2019 12:00am September 21, 2019 5:21pm administer into each nostril Start: 09-20-2019 End: 09-21-2019 take 1 spray(s) nasal route once daily Fluticasone Propionate (Flonase Allergy Relief) 50 mcg/actuation spray,suspension Discontinued 2 SPRAY INTRANASAL DAILY 15.8 September 20, 2019 12:00am September 21, 2019 5:21pm administer into each nostril furosemide 40 mg oral tablet (20 sources) Loop Diuretic Start: 05-21-2018 End: 07-18-2024 take 1 tablet by mouth once daily Furosemide 40 mg tablet Discontinued 40 mg PO DAILY 90 4 August 18, 2023 10:18am July 18, 2024 9:08am Start: 05-21-2018 End: 07-18-2024 Start: 06-01-2014 End: 05-21-2018 take 1 tablet by mouth once daily Furosemide 20 mg tablet Discontinued 20 mg PO DAILY 90 3 April 01, 2018 7:42pm May 21, 2018 11:11am hydrocortisone 0.025 mg/mg topical ointment (17 sources) Corticosteroid Start: 06-11-2018 End: 10-13-2018 Hydrocortisone 2.5 % ointment Discontinued 1 NMA TOPICAL TWICE A DAY 28.35 2 June 11, 2018 12:00am October 13, 2018 10:32am ipratropium bromide 0.2 mg/ml inhalation solution (20 sources) Anticholinergic Start: 11-06-2022 End: 02-04-2023 take 1 mL by inhalation every six hours as needed for wheezing Ipratropium [place] 0.02 % solution Discontinued 2.5 mL INHALATION EVERY 6 HOURS as needed for shortness of breath or wheezing 150 2 November 06, 2022 12:00am February 04, 2023 11:32am Start: 11-06-2022 End: 02-04-2023 Start: 05-08-2022 End: 10-31-2022 take 1 mL by inhalation every six hours as needed for wheezing Ipratropium [place] 0.02 % solution Discontinued 2.5 mL INHALATION EVERY 6 HOURS as needed for shortness of breath or wheezing 75 3 September 05, 2022 1:02pm October 31, 2022 10:49am Start: 05-08-2022 End: 10-31-2022 Start: 11-24-2017 End: 06-11-2018 take 0.5 mg by inhalation every eight hours as needed for wheezing Ipratropium [place] 0.02 % solution Discontinued 0.5 mg INHALATION Q8H as needed for shortness of breath or wheezing 62.5 0 November 24, 2017 12:00am June 11, 2018 2:11pm Start: 11-24-2017 End: 06-11-2018 Start: 11-24-2017 End: 06-11-2018 take 0.5 mg by inhalation every eight hours Ipratropium [place] Discontinued 0.5 MG INHALATION Q8H 62.5 November 24, 2017 12:00am June 11, 2018 2:11pm lidocaine 25 mg/ml / prilocaine 25 mg/ml topical cream (11 sources) Antiarrhythmic, Amide Local Anesthetic Start: 04-14-2023 End: 05-15-2023 Lidocaine-Prilocaine 2.5-2.5 % cream Discontinued 1 NMA TOPICAL ONCE 30 April 14, 2023 1:00am May 15, 2023 11:01am apply 45 minutes to area prior to procedure. Apply the cream to a perineal pad and leave it in place until the procedure. Start: 04-14-2023 End: 05-15-2023 Lidocaine-Prilocaine Discont inued 1 APPLIC TOPICAL ONCE April 14, 2023 1:00am May 15, 2023 11:01am apply 45 minutes to area prior to procedure. Apply the cream to a perineal pad and leave it in place until the procedure. lisinopril 20 mg oral tablet (20 sources) Angiotensin Converting Enzyme Inhibitor Start: 06-01-2014 End: 05-24-2018 take 1 tablet by mouth twice daily Lisinopril 20 mg tablet Discontinued 20 mg PO TWICE A DAY 180 April 01, 2018 7:42pm May 21, 2018 11:01am loratadine 10 mg oral tablet (20 sources) Start: 05-29-2016 End: 10-13-2018 take 1 tablet by mouth once daily as needed Loratadine 10 mg tablet Discontinued 10 mg PO DAILY as needed for allergy symptoms 90 April 01, 2018 7:42pm October 13, 2018 10:34am LORazepam 1 mg oral tablet (20 sources) Benzodiazepine Start: 08-22-2024 End: 10-18-2024 take 1 tablet by mouth once daily Lorazepam 1 mg tablet Discontinued 1 mg PO DAILY 30 30 0 September 19, 2024 8:16pm October 18, 2024 12:00am October 18, 2024 12:14pm Other specified anxiety disorders anxiety Start: 07-22-2024 End: 08-21-2024 take 1 tablet by mouth once daily Lorazepam 1 mg tablet Discontinued 1 mg PO DAILY 30 30 0 July 22, 2024 8:47pm August 20, 2024 12:00am August 21, 2024 12:08am Other specified anxiety disorders anxiety Start: 02-25-2024 End: 07-17-2024 take 1 tablet by mouth once daily Lorazepam 1 mg tablet Discontinued 1 mg PO DAILY 30 30 0 June 17, 2024 11:07pm July 16, 2024 12:00am July 17, 2024 12:08am Other specified anxiety disorders anxiety Start: 11-30-2023 End: 02-25-2024 take 1 mg by mouth once daily Lorazepam 2 mg tablet Di scontinued 1 mg PO DAILY 15 30 January 28, 2024 7:56pm February 26, 2024 1:00am February 25, 2024 12:00pm Other specified anxiety disorders anxiety Start: 09-29-2023 End: 11-27-2023 take 1 mg by mouth once daily Lorazepam 2 mg tablet Di scontinued 1 mg PO DAILY 15 October 28, 2023 4:55pm November 26, 2023 12:00am November 27, 2023 12:05am Other specified anxiety disorders anxiety Start: 04-06-2023 End: 09-26-2023 take 1 mg by mouth once daily Lorazepam 2 mg tablet Di scontinued 1 mg PO DAILY 15 30 August 27, 2023 1:49pm September 25, 2023 12:00am September 26, 2023 12:11am Other specified anxiety disorders anxiety Start: 04-06-2023 End: 09-26-2023 Start: 12-08-2022 End: 04-03-2023 take 1 mg by mouth once daily Lorazepam 2 mg tablet Di scontinued 1 mg PO DAILY 15 30 0 March 04, 2023 2:42pm April 02, 2023 1:00am April 03, 2023 1:06am Other specified anxiety disorders anxiety Start: 12-08-2022 End: 04-03-2023 Start: 04-09-2018 End: 03-29-2019 Lorazepam 1 mg tablet Discon tinued 1 mg PO 1 to 2 times per day as needed for anxiety 60 0 January 20, 2019 11:37pm March 29, 2019 3:46pm Other specified anxiety disorders Start: 07-13-2017 End: 12-08-2022 take 1 tablet by mouth once daily Lorazepam 1 mg tablet Discontinued 1 mg PO DAILY 30 0 November 05, 2022 7:38pm December 08, 2022 2:29pm Other specified anxiety disorders anxiety Start: 07-13-2017 End: 04-09-2018 take 1 tablet by mouth twice daily as needed for anxiety Lorazepam 1 mg tablet Discontinued 1 mg PO TWICE A DAY as needed for anxiety 60 0 March 09, 2018 4:05pm April 09, 2018 9:52am Start: 06-12-2017 End: 07-13-2017 take 1 tablet by mouth twice daily in the morning Lorazepam 0.5 mg tablet Discontinued 0.5 mg PO TWICE A DAY as needed for anxiety 40 0 June 12, 2017 12:00am July 13, 2017 2:29pm 1/2 tab in the morning and 1 mg in the evening for two weeks then take 0.5mg BID Earliest Fill date 06/22/2017 Start: 06-10-2017 End: 06-12-2017 take 1 tablet by mouth twice daily as needed for anxiety Lorazepam 1 mg tablet Discontinued 1 mg PO TWICE A DAY as needed for Anxiety 20 0 June 10, 2017 6:54pm June 12, 2017 11:54am Start: 06-01-2014 End: 06-10-2017 take 1 tablet by mouth three times daily as needed for anxiety Lorazepam 1 MG tablet Discontinued 1 mg PO 3 TIMES DAILY NEEDED as needed for Anxiety June 01, 2014 12:00am June 10, 2017 6:55pm Start: 06-01-2014 End: 06-12-2017 losartan potassium 25 mg oral tablet (20 sources) Angiotensin 2 Receptor Kemal Start: 05-24-2018 End: 07-18-2024 take 1 tablet by mouth once daily Losartan 25 mg tablet Discontinued 25 mg PO DAILY 90 August 18, 2023 10:18am July 18, 2024 9:08am Start: 05-24-2018 End: 03-18-2019 take 1 tablet by mouth twice daily Losartan 25 mg tablet Discontinued 25 mg PO TWICE A DAY 60 May 24, 2018 12:00am March 18, 2019 1:58pm Start: 05-24-2018 End: 07-18-2024 magnesium chloride 535 mg delayed release oral tablet (17 sources) Start: 03-26-2017 End: 04-02-2017 take 1 tablet by mouth twice daily Magnesium Chloride (Mag 64) 64 mg tablet,delayed release (DR/EC) Discontinued 64 mg PO TWICE A DAY March 26, 2017 1:00am April 02, 2017 3:11pm Magnesium Oxide (20 sources) Start: 03-08-2024 End: 03-11-2024 magnesium oxide (MAG-OX) tablet 800 mg Start: 03-26-2017 End: 03-08-2024 take 1 tablet by mouth three times daily Magnesium Oxide 400 mg (241.3 mg magnesium) tablet Discontinued 400 mg PO THREE TIMES A DAY 270 December 01, 2018 4:08pm April 04, 2019 1:25pm Start: 05-30-2016 End: 07-17-2017 take 1 tablet by mouth once daily at mealtime Magnesium Oxide 400 mg tablet Discontinued 400 mg PO daily 60 June 10, 2017 2:01pm July 17, 2017 1:27pm administer with meals Start: 05-30-2016 End: 01-27-2024 take 1 tablet by mouth twice daily Magnesium Oxide 400 mg tablet Discontinued 400 mg PO TWICE A DAY 180 October 07, 2017 12:04pm December 16, 2017 2:19pm Start: 05-30-2016 End: 01-27-2024 take 1 tablet by mouth twice daily Magnesium Oxide 400 mg (241.3 mg magnesium) tablet Discontinued 800 mg PO TWICE A DAY February 06, 2022 2:09pm April 14, 2022 2:57pm Start: 05-30-2016 End: 01-27-2024 take 1 tablet by mouth twice daily Magnesium Oxide 400 mg (241.3 mg magnesium) tablet Discontinued 1600 mg PO TWICE A DAY April 14, 2022 2:55pm July 23, 2022 9:19am take 1 capsule by mo [facility] three times daily Magnesium Oxide 400 MG capsule Take 1 capsule by mouth 3 (three) times a day. Active 50 ml magnesium sulfate 80 mg/ml injection (2 sources) Start: 03-07-2024 End: 03-07-2024 4 g, Intravenous, at 12.5 mL/hr, Administer over 4 Hours, ONCE, 1 dose, On Thu03/07/24 at 1815 meclizine hydrochloride 12.5 mg oral tablet (12 sources) Antiemetic Start: 02-04-2023 End: 02-10-2023 Meclizine 12.5 mg tablet Discontinued 12.5 mg PO 2 to 4 times per day as needed for dizziness 60 0 February 04, 2023 1:00am February 10, 2023 2:08pm melatonin 3 mg oral tablet (2 sources) Start: 03-07-2024 End: 03-11-2024 methylPREDNISolone 4 mg oral tablet (17 sources) Corticosteroid Start: 12-24-2018 End: 02-15-2019 take 1 tablet by mouth once Methylprednisolone (Medrol (Jeff)) 4 mg tablets,dose pack Discontinued 0 PO per package directions 21 0 December 24, 2018 12:00am February 15, 2019 3:59pm PO PER PKG DIR Start: 12-24-2018 End: 02-15-2019 metoprolol tartrate 50 mg oral tablet (20 sources) beta-Adrenergic Kemal Start: 06-01-2014 End: 12-09-2023 take 1 tablet by mouth twice daily Metoprolol Tartrate 50 mg tablet Discontinued 50 mg PO TWICE A DAY 180 3 June 18, 2022 8:34pm February 10, 2023 2:32pm montelukast 10 mg oral tablet (17 sources) Leukotriene Receptor Antagonist Start: 04-27-2018 End: 10-13-2018 take 1 tablet by mouth once daily in the evening Montelukast 10 mg tablet Discontinued 10 mg PO EVERY EVENING 60 3 April 27, 2018 1:00am October 13, 2018 10:36am Nicotine (17 sources) Cholinergic Nicotinic Agonist Start: 12-24-2018 End: 02-15-2019 apply 21 mg transdermal route once daily, then apply 14 mg transdermal route once daily, then apply 7 mg transdermal route once daily Nicotine Discontinued 1 PATCH TD daily 70 December 24, 2018 11:29am February 15, 2019 3:59pm Apply 21 mg patch daily 6 weeks, then 14 mg patch daily 2 weeks, then 7 mg patch daily 2 weeks. Start: 12-24-2018 End: 02-15-2019 apply 21 mg transdermal route once daily, then apply 14 mg transdermal route once daily, then apply 7 mg transdermal route once daily Nicotine 21-14-7 mg/24 hr patch, TD daily, sequential Discontinued 1 NMA TD daily 70 December 24, 2018 12:00am February 15, 2019 3:59pm Tobacco use Apply 21 mg patch daily 6 weeks, [...] daily 2 weeks. omeprazole 20 mg delayed release oral capsule (20 sources) Proton Pump Inhibitor Start: 07-16-2017 End: 07-18-2024 take 1 capsule by mouth once daily Omeprazole 20 mg capsule,delayed release(DR/EC) Discontinued 20 mg PO daily 90 2 October 28, 2023 4:55pm July 18, 2024 2:34pm Start: 04-06-2017 End: 07-16-2017 Omeprazole 40 MG capsule,del ayed release(DR/EC) Discontinued 20 mg PO DAILY April 06, 2017 9:15am July 16, 2017 3:37pm swallow whole; do not crush, chew, dissolve, or cut/break. Take at least 30 minutes before breakfast. Start: 03-26-2017 End: 04-06-2017 take 1 capsule by mouth once daily 30 minutes before breakfast Omeprazole 40 mg capsule,delayed release(DR/EC) Discontinued 40 mg PO daily 60 3 March 26, 2017 1:00am April 06, 2017 9:11am swallow whole; do not crush, chew, dissolve, or cut/break. Take at least 30 minutes before breakfast. Start: 03-26-2017 End: 07-16-2017 Start: 10-07-2015 End: 03-26-2017 take 1 capsule by mouth once daily Omeprazole 20 MG capsule Discontinued 20 mg PO DAILY October 07, 2015 12:00am March 26, 2017 4:09pm Ondansetron 4mg/2ml (ZOFRAN) injection 4 mg (2 [...] Continuation of Home Therapy polyethylene glycol 3350 17558 mg powder for oral solution (2 sources) Osmotic Laxative Start: 03-07-2024 End: 03-11-2024 microencapsulated potassium chloride 20 meq extended release oral tablet (20 sources) Start: 03-08-2024 End: 03-11-2024 Potassium chloride (K-DUR) tablet ER 40-60 mEq Start: 11-14-20[address] [facility] twice daily Potassium Chloride ([id number]-[id number]-Eoq M20) 20 mEq oral tablet, extended release TAKE 1 TABLET BY MOUTH TWICE DAILY Start Date: 11/14/21 Status: Ordered Start: 03-26-2017 End: 04-06-2017 take 2 tablets by mouth once daily Potassium Chloride 20 MEQ tablet Discontinued 40 meq PO daily 60 4 March 26, 2017 7:05pm April 06, 2017 9:11am Start: 05-30-2016 End: 05-31-2024 take 1 tablet by mouth twice daily Potassium Chloride 20 mEq tablet,ER particles/crystals Discontinued 20 meq PO TWICE A DAY 180 3 May 11, 2024 11:44pm May 31, 2024 1:55pm Start: 05-30-2016 End: 11-06-2017 take 1 tablet by mouth once daily Potassium Chloride 20 mEq tablet,ER particles/crystals Discontinued 20 meq PO daily 30 3 October 07, 2017 12:04pm November 05, 2017 3:42pm Start: 05-30-2016 End: 05-31-2024 take 1 tablet by wiliam th twice daily Potassium Chloride ER 20 MEQ Tab CR tablet Take 1 tablet by mouth 2 times daily. Active predniSONE 50 mg oral tablet (20 sources) Start: 02-16-2024 End: 02-24-2024 take 1 tablet by mouth once daily Prednisone 50 mg tablet Discontinued 50 mg PO DAILY 5 5 0 February 16, 2024 1:00am February 24, 2024 10:06am Start: 11-09-2019 End: 11-23-2019 take 2 tablets by mouth once daily Prednisone 20 mg tablet Discontinued 40 mg PO DAILY 10 0 November 09, 2019 12:00am November 23, 2019 9:20am Start: 11-09-2019 End: 11-23-2019 Start: 10-13-2018 End: 10-29-2018 Prednisone 10 mg tablet Disc ontinued 0 PO daily 30 0 October 13, 2018 12:00am October 29, 2018 9:12am 4 tabs for 3 days, then 3 tabs for 3 days, then 2 tabs for 3 days, then 1 tab for 3 days PO QDAY; administer with food or milk Start: 11-24-2017 End: 10-13-2018 take 2 tablets by mouth once daily Prednisone 20 mg tablet Discontinued 40 mg PO DAILY 10 0 April 27, 2018 4:45pm October 13, 2018 10:36am Start: 11-24-2017 End: 10-13-2018 simvastatin 20 mg oral tablet (20 sources) HMG-CoA Reductase Inhibitor Start: 10-19-2018 End: 07-18-2024 take 1 tablet by mouth at bedtime Simvastatin 20 mg tablet Discontinued 20 mg PO AT BEDTIME 90 3 April 28, 2024 11:21am July 18, 2024 9:08am Start: 03-16-2018 End: 10-13-2018 take 1 tablet by mouth at bedtime Simvastatin 20 mg tablet Discontinued 20 mg PO AT BEDTIME 30 6 March 16, 2018 1:00am October 13, 2018 10:37am 200 ml vancomycin 5 mg/ml injection (2 sources) Glycopeptide Antibacterial Start: 03-08-2024 End: 03-10-2024 1,000 mg, Intravenous, Administer over 1 Hours, INLAYER TO PROCEDURE, 1 dose, Starting on Thu03/08/24 at 0927, Until Viktoriya 03/10/24 at 0926, Other, Preoperative antibiotic, Order should be timed for day of procedure. 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 Vancomycin is preferred agent [...] Chronic Chronic obstructive pulmonary disease and bronchiectasis (20 sources) Chronic obstructive lung disease; Translations: [Chronic obstructive pulmonary disease, unspecified] Onset: 01-05-2024 Chronic Conditions associated with dizziness or vertigo (16 sources) Vertigo; Translations: [Dizziness and giddiness] 02-04-2023 Episodic Conduction disorders (20 sources) Biventricular automatic implantable cardioverter defibrillator in situ; Translations: [Presence of automatic (implantable) cardiac defibrillator] Onset: 11-07-2010 Chronic Comment on above: DIE FINISHER-D change out [facility] 03/10/24 09/19/2008, Gen lema e 03/10/24 with new LBB lead placed mid RV septum for LV pacing Congestive heart failure; nonhypertensive (20 sources) Chronic systolic heart failure; Translations: [Chronic systolic (congestive) heart failure] Onset: 01-05-2024 Chronic Diabetes mellitus without complication (20 sources) Type 2 diabetes mellitus; Translations: [Type 2 diabetes mellitus without complications] Onset: 01-05-2024 Chronic Disorders of lipid metabolism (20 sources) Hyperlipidemia; Translations: [Hyperlipidemia, unspecified] Onset: 05-23-2024 11-13-2021 Chronic Disorders of teeth and jaw (1 source) Edentulous 11-13-2021 Chronic E Codes: Unspecified (13 sources) Finding of activity of daily living; Translations: [Activity, personal bathing and showering] 05-23-2024 Episodic Esophageal disorders (1 source) Gastroesophageal reflux disease 11-13-2021 Chronic Essential hypertension (20 sources) Essential hypertension; Translations: [Essential (primary) hypertension] Onset: 01-05-2024 Chronic Heart valve disorders (17 sources) Tricuspid incompetence, non-rheumatic ; Translations: [Nonrheumatic tricuspid (valve) insufficiency] 04-28-2019 Chronic Malaise and fatigue (16 sources) Asthenia; Translations: [Other malaise] 05-30-2024 Episodic Noninfectious gastroenteritis (20 sources) Chronic diarrhea; Translations: [Noninfective gastroenteritis and colitis, unspecified] 10-31-2022 Episodic Other connective tissue disease (17 sources) Foot pain; Translations: [Pain in left foot] 06-29-2020 Episodic Other connective tissue disease (13 sources) Muscle weakness of limb; Translations: [Other symptoms and signs involving the musculoskeletal system] 05-23-2024 Episodic Other female genital disorders (2 sources) Mild vulvar dysplasia; 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] Onset: 12-23-2021 Episodic Other lower respiratory disease (17 sources) Dyspnea; Translations: [Shortness of breath] 04-28-2019 Episodic Other lower respiratory disease (20 sources) Cough; Translations: [Cough] 05-20-2018 Episodic Other nutritional; endocrine; and metabolic disorders (18 sources) Hypomagnesemia; Translations: [Hypomagnesemia] 09-17-2017 Chronic Other nutritional; endocrine; and metabolic disorders (5 sources) Hypomagnesemia; Translations: [Disorders of magnesium metabolism] Onset: 02-24-2024 Chronic Other nutritional; endocrine; and metabolic disorders (9 sources) Hypercalcemia; Translations: [Hypercalcemia] 05-15-2023 Chronic Other nutritional; endocrine; and metabolic disorders (17 sources) Unintentional weight loss; Translations: [Abnormal weight loss] 07-05-2021 Episodic Other nutritional; endocrine; and metabolic disorders (11 sources) Abnormal weight loss; Translations: [Loss of weight] Episodic Other upper respiratory disease (1 source) Seasonal allergy 11-13-2021 Chronic Other upper respiratory infections (17 sources) Sinusitis; Translations: [Chronic sinusitis, unspecified] 05-20-2018 Chronic Other upper respiratory infections (8 sources) Viral upper respiratory tract infection; Translations: [Acute upper respiratory infection, unspecified] 02-24-2024 Episodic Reina-; endo-; and myocarditis; cardiomyopathy (except that caused by tuberculosis or sexually transmitted disease) (20 sources) Dilated cardiomyopathy; Translations: [Dilated cardiomyopathy] Onset: 01-05-2024 Chronic Residual codes; unclassified (17 sources) Family history of stroke; Translations: [Family history of stroke] 05-20-2018 Episodic Residual codes; unclassified (17 sources) FH: Hypertension; Translations: [Family history of ischemic heart disease and other diseases of the circulatory system] 05-20-2018 Episodic Residual codes; unclassified (17 sources) Family history of hyperlipidemia; Translations: [Family history of other disorder of lipoprotein metabolism and other lipidemia] 05-20-2018 Episodic Sexually transmitted infections (not HIV or hepatitis) (1 source) 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 Substance-related disorders (17 sources) Tobacco dependence in remission; Translations: [Nicotine dependence, unspecified, in remission] 05-23-2024 Chronic Unclassified (1 source) 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 Unclassified (5 sources) Activities involving personal bathing and showering Past or Other Problems Problem Classification Problem Date Documented Date Episodic/Chronic Complication of device; implant or graft (18 sources) Disorder of cardiac pacemaker electrode; Translations: [Breakdown (mechanical) of cardiac electrode, initial encounter] Onset: 03-07-2024 03-07-2024 Episodic Comment on above: New BSX DIE FINISHER-D implan brian [facility] 03/10/24 BSX Inogen [id number] LV CS lead capped with [id number] plug. LBB lead implanted mid RV septum for LBB pacing 03/10/24 BSX [id number] Other lower respiratory disease (1 source) Shortness [...] Test Name Value Interpretation Reference Range Facility Cardiology Visit Reporton Cardiology Visit Report [facility] [address] [place] [address] OFFICE VISIT Date of Service: 10/25/24 MR#: [id number] Acct: [id number] Name: TANVI GARZA Rep #: [id number] : 1960 Provider: CELINE escobar Age/Sex: 63/F Location: [facility] Status: Signed HPI HPI History of Present Illness Details: TANVI GARZA, is a 63 F who presents to the office today for a cardiovascular follow-up visit. She has a history of hypertension, nonischemic cardiomyopathy, status post biventricular ICD placement, and tobacco abuse. Patient did require a generator change of her DIE FINISHER-D. Her LV lead was unipolar and had a capture threshold of 6.5 V at 1.0 ms. EP was consulted to see whether or not she should have her lead removed or if she would be able to have an additional lead place and her other lead capped. Her venogram did demonstrate patent left axillary and subclavian veins. She did undergo successful implantation of a new LBBB pacing lead to her mid RV septum. Her other lead was capped. She did undergo a generator change on 03/10/2024 at [facility]. Echocardiogram in June 2024 showed an LV function of 45%. From a cardiac standpoint, the patient is doing well. She denies any palpitations, chest pain, pressure or heaviness. She denies SOB, Orthopnea, and PND. She does not have bleeding issues; no blood in urine, stool, or nosebleeds. She denies any decrease in energy level, myalgias, or claudication. She does not have edema, or sudden weight gain. She denies lightheadedness, dizziness, syncopal or near syncopal episodes, and headaches. She does acknowledge starting smoking again. Intake Vital Signs 08/24/24 08:55 10/25/24 08:01 Height 5 ft 4 in 5 ft 4 in Weight: 110 lb BMI 18.8 BP 119/71 Blood Pressure Location Rt brachial Position Sitting Pulse 62 Pulse Source Monitor Pulse Oximetry (%) 96 Intake Visit Reasons: 9 M FU ICD f/u @ 9 Ui Ux Developer Required: No Is patient in pain?: No Allergies cholecalciferol (vitamin D3) Allergy (Severe, Verified 10/25/24 12:21) Rash chlorhexidine (From Karena-Hex) Allergy (Intermediate, Verified 10/25/24 12:21) Rash acetaminophen (From Tylenol) Allergy (Verified 10/25/24 12:21) Hives amoxicillin (Amoxicillin) Allergy (Verified 10/25/24 12:21) Hives amoxicillin trihydrate (From Trimox) Allergy (Verified 10/25/24 12:21) Hives codeine Allergy (Verified 10/25/24 12:21) Hives diazepam Allergy (Verified 10/25/24 12:21) Hives methocarbamol Allergy (Verified 10/25/24 12:21) Rash nabumetone Allergy (Verified 10/25/24 12:21) Rash Penicillins Allergy (Verified 10/25/24 12:21) Hives ranitidine HCl (From Zantac) Allergy (Verified 10/25/24 12:21) Hives ropinirole Allergy (Verified 10/25/24 12:21) Rash lisinopril Adverse Reaction (Intermediate, Verified 10/25/24 12:21) Dry hacking cough celecoxib (From Celebrex) Adverse Reaction (Verified 10/25/24 12:21) Nausea/Vom/Diarrhea ciprofloxacin Adverse Reaction (Verified 10/25/24 12:21) Itching citalopram hydrobromide (From Celexa) Adverse Reaction (Verified 10/25/24 12:21) Other cyclobenzaprine HCl (From Flexeril) Adverse Reaction (Verified 10/25/24 12:21) Nausea doxycycline Adverse Reaction (Verified 10/25/24 12:21) Other hydrocodone bitartrate (From Vicodin) Adverse Reaction (Verified 10/25/24 12:21) Nausea meloxicam Adverse Reaction (Verified 10/25/24 12:21) Other naproxen (From Naprosyn) Adverse Reaction (Verified 10/25/24 12:21) Nausea omeprazole Adverse Reaction (Verified 10/25/24 12:21) Nausea pramipexole Adverse Reaction (Verified 10/25/24 12:21) Other Medications ???Medication ???Instructions ???Recorded ???Confirmed ???Type cholecalciferol (vitamin D3) 50 50 mcg PO DAILY 01/15/21 10/25/24 History mcg (2,000 unit) capsule nebulizer accessories #1 ea 07/05/21 10/25/24 Rx magnesium oxide 400 mg (241.3 mg 400 mg PO TID 01/27/24 10/25/24 Hi story magnesium) tablet Handicap Parking Placard #1 ea 04/18/24 10/25/24 Rx potassium chloride 20 mEq 20 meq PO BID #180 tabs 05/31/24 0 10/25/24 Rx tablet,extended release(part/cryst) carvedilol 12.5 mg tablet 12.5 mg PO BID #180 tabs 07/18/24 10/25/24 Rx estradiol 0.5 mg tablet 0.5 mg PO DAILY #90 tabs 07/18/24 10/25/24 Rx furosemide 40 mg tablet 40 mg PO DAILY #90 tabs 07/18/24 0 10/25/24 Rx losartan 25 mg tablet 25 mg PO DAILY #90 tabs 07/18/24 0 10/25/24 Rx omeprazole 20 mg capsule,delayed 20 mg PO QDAY #90 caps 07/18/24 Rx release simvastatin 20 mg tablet 20 mg PO QHS #90 tabs 07/18/24 Rx albuterol sulfate 2.5 mg/3 mL 2.5 mg (3 mL) inhalation Q4H PRN 0 09/19/24 10/25/24 Rx (0.083 %) solution for nebulization shortness of breath or wheezing #180 mL lorazepam 1 mg tablet 1 mg PO D (more content not included)... Normal [facility] Pacemaker Checkon 10-25-2024 Pacemaker Check [facility] [address] [place] [address] Pacemaker Check Date of Service: 10/25/24 1659 MR#: [id number] Acct: [id number] Name: TANVI GARZA Rep #: [id number] : 1960 From: Aliyah Aguilar Age/Sex: 63/F Location: [place] Status: Signed Billing Codes ICD Device Billin ICD Dev Prog Eval, Multi Assessment and Plan Assessment and Plan (1) ICD (implantable cardioverter-defibril lator) battery depletion: Status: Resolved Comment: DIE FINISHER-D change out [facility] 03/10/24 (2) Chronic systolic (congestive) heart failure: Status: Chronic (3) Nonischemic cardiomyopathy: Status: Chronic 10/25/24 1700 Date Aliyha Jose Signature: Date (if applicable) CC: Normal [facility] Bilirubin directOrdered By: Nilda Pino on 08-24-2024 Bilirubin.direct [Mass/Vol] 0.53 mg/dL High 0.00-0.30 [facility] Bilirubin, totalOrdered By: Nilda Pino on 08-24-2024 Bilirubin [Mass/Vol] 1.29 mg/dL 0.00-1.30 [facility] Calculated very low density lipoprotein (VLDL) cholesterol measurementOrdered By: Nilda Pino on 08-24-2024 Calculated very low density lipoprotein (VLDL) cholesterol measurement 20 mg/dL 5-40 [facility] Internal Medicine Office Vis iton 08-24-2024 Internal Medicine Office Visit [facility] [address] [place] [address] [place] [address] OFFICE VISIT Date of Service: 08/24/24 MR#: [id number] Acct: [id number] Name: TANVI GARZA Rep #: [id number] : 1960 Provider: Dr. Martin oreilly MD Age/Sex: 63/F Location: [facility] Status: Signed Intake Vital Signs 08/24/24 08:55 Height 5 ft 4 in Weight: 107 lb BMI 18.3 BP 110/78 Blood Pressure Location Rt brachial Position Sitting Respiration 16 Pulse 66 Pulse Source Monitor Temp 97.7 F L Temp Source Temporal Intake Visit Reasons: 3 m fu Chief Complaint: 3 M FU Ui Ux Developer Required: No Accompanied by: Self Is patient in pain?: No Allergies cholecalciferol (vitamin D3) Allergy (Severe, Verified 08/24/24 08:54) Rash chlorhexidine (From Karena-Hex) Allergy (Intermediate, Verified 08/24/24 08:54) Rash acetaminophen (From Tylenol) Allergy (Verified 08/24/24 08:54) Hives amoxicillin (Amoxicillin) Allergy (Verified 08/24/24 08:54) Hives amoxicillin trihydrate (From Trimox) Allergy (Verified 08/24/24 08:54) Hives codeine Allergy (Verified 08/24/24 08:54) Hives diazepam Allergy (Verified 08/24/24 08:54) Hives methocarbamol Allergy (Verified 08/24/24 08:54) Rash nabumetone Allergy (Verified 08/24/24 08:54) Rash Penicillins Allergy (Verified 08/24/24 08:54) Hives ranitidine HCl (From Zantac) Allergy (Verified 08/24/24 08:54) Hives ropinirole Allergy (Verified 08/24/24 08:54) Rash lisinopril Adverse Reaction (Intermediate, Verified 08/24/24 08:54) Dry hacking cough celecoxib (From Celebrex) Adverse Reaction (Verified 08/24/24 08:54) Nausea/Vom/Diarrhea ciprofloxacin Adverse Reaction (Verified 08/24/24 08:54) Itching citalopram hydrobromide (From Celexa) Adverse Reaction (Verified 08/24/24 08:54) Other cyclobenzaprine HCl (From Flexeril) Adverse Reaction (Verified 08/24/24 08:54) Nausea doxycycline Adverse Reaction (Verified 08/24/24 08:54) Other hydrocodone bitartrate (From Vicodin) Adverse Reaction (Verified 08/24/24 08:54) Nausea meloxicam Adverse Reaction (Verified 08/24/24 08:54) Other naproxen (From Naprosyn) Adverse Reaction (Verified 08/24/24 08:54) Nausea omeprazole Adverse Reaction (Verified 08/24/24 08:54) Nausea pramipexole Adverse Reaction (Verified 08/24/24 08:54) Other Medications ???Medication ???Instructions ???Recorded ???Confirmed ???Type cholecalciferol (vitamin D3) 50 50 mcg PO DAILY 01/15/21 08/24/24 History mcg (2,000 unit) capsule nebulizer accessories #1 ea 07/05/21 08/24/24 Rx magnesium oxide 400 mg (241.3 mg 400 mg PO TID 01/27/24 08/24/24 Hi story magnesium) tablet Handicap Parking Placard #1 ea 04/18/24 08/24/24 Rx potassium chloride 20 mEq 20 meq PO BID #180 tabs 05/31/24 0 08/24/24 Rx tablet,extended release(part/cryst) albuterol sulfate 2.5 mg/3 mL 2.5 mg (3 mL) inhalation Q4H PRN 0 07/06/24 08/24/24 Rx (0.083 %) solution for nebulization shortness of breath or wheezing #180 mL carvedilol 12.5 mg tablet 12.5 mg PO BID #180 tabs 07/18/24 08/24/24 Rx estradiol 0.5 mg tablet 0.5 mg PO DAILY #90 tabs 07/18/24 08/24/24 Rx furosemide 40 mg tablet 40 mg PO DAILY #90 tabs 07/18/24 0 08/24/24 Rx losartan 25 mg tablet 25 mg PO DAILY #90 tabs 07/18/24 0 08/24/24 Rx omeprazole 20 mg capsule,delayed 20 mg PO QDAY #90 caps 07/18/24 Rx release simvastatin 20 mg tablet 20 mg PO QHS #90 tabs 07/18/24 Rx lorazepam 1 mg tablet 1 mg PO DAILY anxiety 1 month #30 08/22/24 08/24/24 Rx tabs [facility] Medical History Physical debility Tobacco abuse, in remission Activities involving personal [...] heart catheterization (12/31/05) Presence of biventricular implantable cardioverte (more content not included)... Normal [facility] LDL calc ser/plasOrdered By: Nilda Pino on 08-24-2024 Cholesterol in LDL [Mass/Vol] 63 mg/dL [facility] Comment on above: Zovfgmagsa=659-548 m g/dL & Higher Ttww=845 mg/dL or greater Laboratory - Chemistry and C hemistry - challengeOrdered By: Nilda Pino on 08-24-2024 AST [Catalytic activity/Vol] 39 U/L High <32 [facility] Laboratory - Hematology and Cell countsOrdered By: Martin Evans on 08-24-2024 HbA1c (Bld) [Mass fraction] 6.3 % 4.2-6.3 [facility] Lipid Profileon 08-24-2024 CHOL:HDL 2.22 Normal [facility] Comment on above: Performed By: #### L 500.4100, L500.3400 #### [facility] [place], [address] Cholesterol [Mass/Vol] 150 mg/dL Normal <=200 [facility] Comment on above: Result Comment: Chol esterol level, Desirable <200 mg/dL Borderline high cholesterol 200-239 mg/dL High cholesterol >=240 mg/dL Recommendations of the NCEP Adult Treatment Panel for the following risk-cutoff thresholds for the [place] population. Performed By: #### L 500.4100, L500.3400 #### [facility] [address] [place], [address] Cholesterol in HDL [Mass/Vol] 68 mg/dL Normal [facility] Comment on above: Result Comment: Cesia onal Cholesterol Education Program (NCEP) guidelines: <40 mg/dL: Low HDL-cholesterol (major risk factor for CHD) >= 60 mg/dL: High HDL-cholesterol (negative risk factor for CHD) HDL-cholesterol is affected by a number of factors, e.g. smoking, exercise, hormones, sex and age. Performed By: #### L 500.4100, L500.3400 #### [facility] [address] [place], [address] Cholesterol in LDL [Mass/Vol] 63 mg/dL Normal [facility] Comment on above: Result Comment: Bord zqcdzy=781-916 mg/dL Higher Jxwg=021 mg/dL or greater Performed By: #### L 500.4100, L500.3400 #### [facility] [address] [place], [address] Cholesterol in VLDL [Mass/Vol] 20 mg/dL Normal 5-40 [facility] Comment on above: Performed By: #### L 500.4100, L500.3400 #### [facility] [address] [place], [address] Triglyceride [Mass/Vol] 98 mg/dL Normal [facility] Comment on above: Result Comment: The drugs N-Acetylcysteine and Metamizole may falsely depress this assay. Normal range: <150 mg/dL Borderline High: 150-199 mg/dL High: 200-499 mg/dL Very High: >500 mg/dL Performed By: #### L 500.4100, L500.3400 #### [facility] [address] [place], [address] Liver Profileon 08-24-2024 Albumin [Mass/Vol] 4.8 g/dL Normal 3.4-4.8 [facility] Comment on above: Performed By: #### L 500.4100, L500.3400 #### [facility] [address] [place], [address] ALK PHOS 94 U/L Normal 35-104 [facility] Comment on above: Performed By: #### L 500.4100, L500.3400 #### [facility] [address] [place], [address] ALT [Catalytic activity/Vol] 24 U/L Normal <=34 [facility] Comment on above: Performed By: #### L 500.4100, L500.3400 #### [facility] [address] [place], [address] AST [Catalytic activity/Vol] 39 U/L High <=31 [facility] Comment on above: Performed By: #### L 500.4100, L500.3400 #### [facility] [address] [place], [address] Bilirubin [Mass/Vol] 1.29 mg/dL Normal 0.00-1.30 [facility] Comment on above: Performed By: #### L 500.4100, L500.3400 #### [facility] [address] [place], [address] Bilirubin.direct [Mass/Vol] 0.53 mg/dL High 0.00-0.30 [facility] Comment on above: Performed By: #### L 500.4100, L500.3400 #### [facility] [address] [place], [address] Globulin (S) [Mass/Vol] 3.5 g/dL Normal 2.2-4.2 [facility] Comment on above: Performed By: #### L 500.4100, L500.3400 #### [facility] [address] [place], [address] T PROT 8.3 g/dL Normal 5.9-8.4 [facility] Comment on above: Performed By: #### L 500.4100, L500.3400 #### [facility] [address] [place], [place], [address] No Panel InformationOrdered By: Nilda Pino on 08-24-2024 39 U/L High <32 [facility] No Panel InformationOrdered By: Martin Evans on 08-24-2024 6.3 % 4.2-6.3 [facility] Screening total cholesterol/ high density lipoprotein (HDL) cholesterol ratioOrdered By: Nilda Pino on 08-24-2024 Cholesterol.total/Shanae sterol in HDL [Mass ratio] 2.22 {ratio} [facility] Serum globulin measurementOr dered By: Nilda Pino on 08-24-2024 Globulin (S) [Mass/Vol] 3.5 g/dL 2.2-4.2 [facility] Serum or plasma alanine joy otransferase (ALT) measurementOrdered By: Nilda Pino on 08-24-2024 ALT [Catalytic activity/Vol] 24 U/L <35 [facility] Serum or plasma albumin omero urement (mass/volume)Ordered By: Nilda Pino on 08-24-2024 Albumin [Mass/Vol] 4.8 g/dL 3.4-4.8 [facility] Serum or plasma alkaline kaitlynn sphatase measurementOrdered By: Nilda Pino on 08-24-2024 ALP [Catalytic activity/Vol] 94 U/L 35-104 [facility] Serum or plasma cholesterol in HDL measurement (mass/volume)Ordered By: Nilda Pino on 08-24-2024 Cholesterol in HDL [Mass/Vol] 68 mg/dL >40 [facility] Comment on above: National Cholesterol Education Program (NCEP) guidelines:<40 mg/dL: Low HDL-cholesterol (major risk factor for CHD)>= 60 mg/dL: High HDL-cholesterol (negative risk factor for CHD)HDL-cholesterol is affected by a number of factors, e.g. smoking, exercise, hormones, sex and age. Serum or plasma cholesterol measurement (mass/volume)Ordered By: Nilda Pino on 08-24-2024 Cholesterol [Mass/Vol] 150 mg/dL <[address] [facility] Comment on above: Cholesterol level, D esirable <200 mg/dLBorderline high cholesterol 200-239 mg/dLHigh cholesterol >=240 mg/dLRecommendations of the NCEP Adult Treatment Panel for the following risk-cutoff thresholds for the [place] population. Total proteinOrdered By: Clovis Pino on 08-24-2024 Protein [Mass/Vol] 8.3 g/dL 5.9-8.4 [facility] Triglycerides measurementOrd ered By: Nilda Pino on 08-24-2024 Triglyceride [Mass/Vol] 98 mg/dL <199 [facility] Comment on above: The drugs N-Acetylcy steine and Metamizole may falsely depress this assay. Normal range: <150 mg/dLBorderline High: 150-199 mg/dLHigh: 200-499 mg/dLVery High: >500 mg/dL Pacemaker Checkon 07-20-[address] [facility] [address] [place] [address]. 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 [address] [place] [address] Echo, Limited Study 06/08/24 0943 MR#: [id number] Acct: [id number] Name: TANVI GARZA Rep #: [id number] : 1960 63 From: Stewart Diane MD Attending Dr: Dr. Stewart Diane MD Status: [facility] Ordering Dr: Stewart Diane MD Date: 06/08/24 Location: [facility] Sex: F C Admitted: Reason [...] Physician: CRISTINA SALAZAR Performed By: Danica Randle JULIAN 06/08/241652 Date Stewart Diane MD CC: Dr. Stewart Diane MD; Dr. Martin Evans MD Date Dictated: 06/08/24 0943 Date Transcribed: 06/08/241652 [employer] Scientist: Signed Normal [facility] Limited echocardiogram repor tOrdered By: Stewart Diane on 06-08-2024 Study report [facility] Work Phone: ALP [Catalytic activity/Vol] Ordered By: Martin Evans on 05-23-2024 Serum or plasma alkaline phosphatase measurement 123 U/L High 35-104 [facility] ALT [Catalytic activity/Vol] Ordered By: Martin Evans on 05-23-2024 Serum or plasma alanine aminotransferase (ALT) measurement 25 U/L <35 [facility] Absolute lymphocyte countOrd ered By: Martin Evans on 05-23-2024 Lymphocytes Auto (Unsp spec) [#/Vol] 1.38 10*3/uL 0.83-4.51 [facility] Absolute neutrophil countOrd ered By: Martin Evans on 05-23-2024 Absolute neutrophil count 5.4 X10^3/uL 2.0-7.7 [facility] Albumin [Mass/Vol]Ordered By : dionlawrencetyron Evans on 05-23-2024 Serum or plasma albumin measurement (mass/volume) 4.6 g/dL 3.4-4.8 [facility] Albumin/Globulin [Mass ratio ]Ordered By: jen Evans on 05-23-2024 Serum or plasma albumin/globulin mass ratio 1.4 RATIO 0.9-2.4 [facility] Anion gap [Moles/Vol]Ordered By: Martin Evans on 05-23-2024 Anion gap in Serum or Plasma 10 5-15 [facility] Anion gap in Serum or Plasma Or[facility]: [facility] on 05-23-2024 Anion gap [Moles/Vol] 10 mmol/L 5-15 [facility] Automated lymphocyte count a s percentage of total leukocytesOrdered By: Martin Evans on 05-23-2024 Lymphocytes/100 WBC Auto (Unsp spec) 17.6 % Low 19-41 [facility] BUN/creatinine ratioOrdered By: Martin Evans on 05-23-2024 Urea nitrogen/Creatinine [Mass ratio] 23.7 mg/mg High 10-20 [facility] BUN/creatinine ratio 23.7 RATIO High 10-20 [facility] Basophil percentageOrdered B y: Martin Evans on 05-23-2024 Basophils/100 WBC (Bld) 0.6 % 0-1 [facility] Basophil percentage 0.6 % 0-1 [facility] Bilirubin, totalOrdered By: Martin Stubbspieterwesley on 05-23-2024 Bilirubin [Mass/Vol] 1.17 mg/dL 0.00-1.30 [facility] Bilirubin, total 1.17 mg/dL 0.00-1.30 [facility] CBC W/Diff, Automatedon 05-07 Absolute Lymph 1.38 X10 3/uL Normal 0.83-4.51 [facility] Comment on above: Performed By: #### L 500.4050, L100.0100 #### [facility] [address] [place], [address] Absolute Neut 5.4 X10 3/uL Normal 2.0-7.7 [facility] Comment on above: Performed By: #### L 500.4050, L100.0100 #### [facility] [address] [place], [address] Basophils/100 WBC (Bld) 0.6 % Normal 0-1 [facility] Comment on above: Performed By: #### L 500.4050, L100.0100 #### [facility] [address] [place], [address] Eosinophils/100 WBC (Bld) 4.5 % Normal 0-5 [facility] Comment on above: Performed By: #### L 500.4050, L100.0100 #### [facility] [address] [place], [address] Erythrocyte distribution width (RBC) [Ratio] 12.1 % Normal 11.6-14.6 [facility] Comment on above: Performed By: #### L 500.4050, L100.0100 #### [facility] [address] [place], [address] Hematocrit (Bld) [Volume fraction] 38.8 % Normal 37-47 [facility] Comment on above: Performed By: #### L 500.4050, L100.0100 #### [facility] [address] [place], [address] Hemoglobin (Bld) [Mass/Vol] 13.0 g/dL Normal 12.0-15.0 [facility] Comment on above: Performed By: #### L 500.4050, L100.0100 #### [facility] [address] [place], [address] IG% 0.400 Normal 0.0-0.9 [facility] Comment on above: Result Comment: IG% - Immature Granulocytes (promyelocytes, myelocytes and metamyelocytes) > 1% indicates that a LEFT SHIFT is Present. Performed By: #### L 500.4050, L100.0100 #### [facility] [address] [place], [address] Lymphocytes/100 WBC (Bld) 17.6 % Low 19-41 [facility] Comment on above: Performed By: #### L 500.4050, L100.0100 #### [facility] [address] [place], [address] MCH (RBC) [Entitic mass] 31.7 pg Normal 27.0-32.0 [facility] Comment on above: Performed By: #### L 500.4050, L100.0100 #### [facility] [address] [place], [address] MCHC (RBC) [Mass/Vol] 33.5 g/dL Normal 32-36 [facility] Comment on above: Performed By: #### L 500.4050, L100.0100 #### [facility] [address] [place], [address] MCV (RBC) [Entitic vol] 94.6 fL Normal 81-99 [facility] Comment on above: Performed By: #### L 500.4050, L100.0100 #### [facility] [address] [place], [address] Monocytes/100 WBC (Bld) 7.9 % Normal 0-10 [facility] Comment on above: Performed By: #### L 500.4050, L100.0100 #### [facility] [address] [place], [address] Neutrophils/100 WBC (Bld) 69.0 % Normal 47-70 [facility] Comment on above: Performed By: #### L 500.4050, L100.0100 #### [facility] [address] [place], [address] Nucleated RBC (Bld) [#/Vol] 0 10*3/uL Normal 0-5 [facility] Comment on above: Performed By: #### L 500.4050, L100.0100 #### [facility] [address] [place], [address] Platelet mean volume (Bld) [Entitic vol] 11.4 fL Normal 6.2-12.0 [facility] Comment on above: Performed By: #### L 500.4050, L100.0100 #### [facility] [address] [place], [address] Platelets (Bld) [#/Vol] 175 10*3/uL Normal 150-450 [facility] Comment on above: Performed By: #### L 500.4050, L100.0100 #### [facility] [address] [place], [address] RBC (Bld) [#/Vol] 4.10 10*6/uL Low 4.2-5.4 [facility] Comment on above: Performed By: #### L 500.4050, L100.0100 #### [facility] [address] [place], [address] RDW SD 42.4 fl Normal 35.1-43.9 [facility] Comment on above: Performed By: #### L 500.4050, L100.0100 #### [facility] [address] [place], [address] WBC (Bld) [#/Vol] 7.8 10*3/uL Normal 4.4-11.0 [facility] Comment on above: Performed By: #### L 500.4050, L100.0100 #### [facility] [address] [place], [address] Calcium [Mass/Vol]Ordered By : Martin Evans on 05-23-2024 Serum or plasma calcium measurement (mass/volume) 8.9 mg/dL 7.6-11.0 [facility] Carbon dioxide, total [Moles /volume] in Central venous bloodOrdered By: Martin Evans on 05-23-2024 CO2 [Moles/Vol] 30.1 mmol/L 21.0-32.0 [facility] Carbon dioxide, total [Moles/volume] in Central venous blood 30.1 mmol/L 21.0-32.0 [facility] Chloride assayOrdered By: Karen Evans on 05-23-2024 Chloride [Moles/Vol] 97 mmol/L Low 98-108 [facility] Chloride assay 97 mmol/L Low 98-108 [facility] Comprehensive Metabolic Prof ilon 05-23-2024 Albumin [Mass/Vol] 4.6 g/dL Normal 3.4-4.8 [facility] Comment on above: Performed By: #### L 500.4050, L100.0100 #### [facility] [address] [place], [address] Albumin/Globulin [Mass ratio] 1.4 {ratio} Normal 0.9-2.4 [facility] Comment on above: Performed By: #### L 500.4050, L100.0100 #### [facility] [address] [place], [address] ALK PHOS 123 U/L High 35-104 [facility] Comment on above: Performed By: #### L 500.4050, L100.0100 #### [facility] [address] [place], [address] ALT [Catalytic activity/Vol] 25 U/L Normal <=34 [facility] Comment on above: Performed By: #### L 500.4050, L100.0100 #### [facility] [address] [place], [address] AST [Catalytic activity/Vol] 39 U/L High <=31 [facility] Comment on above: Performed By: #### L 500.4050, L100.0100 #### [facility] [address] [place], [address] Bilirubin [Mass/Vol] 1.17 mg/dL Normal 0.00-1.30 [facility] Comment on above: Performed By: #### L 500.4050, L100.0100 #### [facility] [address] [place], [address] BUN/CRE 23.7 RATIO High 10-20 [facility] Comment on above: Performed By: #### L 500.4050, L100.0100 #### [facility] [address] [place], [address] Calcium [Mass/Vol] 8.9 mg/dL Normal 7.6-11.0 [facility] Comment on above: Performed By: #### L 500.4050, L100.0100 #### [facility] [address] [place], [address] Chloride [Moles/Vol] 97 mmol/L Low 98-108 [facility] Comment on above: Performed By: #### L 500.4050, L100.0100 #### [facility] [address] [place], [address] CO2 [Moles/Vol] 30.1 mmol/L Normal 21.0-32.0 [facility] Comment on above: Performed By: #### L 500.4050, L100.0100 #### [facility] [address] [place], [address] Creatinine [Mass/Vol] 0.98 mg/dL Normal 0.70-1.20 [facility] Comment on above: Performed By: #### L 500.4050, L100.0100 #### [facility] [address] [place], [address] GAP 10 Normal 5-15 [facility] Comment on above: Performed By: #### L 500.4050, L100.0100 #### [facility] [address] [place], [address] GFR/1.73 sq M.predicted among non-blacks MDRD (S/P/Bld) [Vol rate/Area] 65 mL/min/{1.73_m2} Normal >60 [facility] Comment on above: Result Comment: mL/m in/1.73m2 CKD-EPI Creatinine Equation (2020) Performed By: #### L 500.4050, L100.0100 #### [facility] [address] [place], [address] Globulin (S) [Mass/Vol] 3.3 g/dL Normal 2.2-4.2 [facility] Comment on above: Performed By: #### L 500.4050, L100.0100 #### [facility] [address] [place], [address] Glucose [Mass/Vol] 119 mg/dL High 70-99 [facility] Comment on above: Performed By: #### L 500.4050, L100.0100 #### [facility] [address] [place], [address] Potassium [Moles/Vol] 4.0 mmol/L Normal 3.3-5.1 [facility] Comment on above: Performed By: #### L 500.4050, L100.0100 #### [facility] [address] [place], [address] Sodium [Moles/Vol] 138 mmol/L Normal 133-145 [facility] Comment on above: Performed By: #### L 500.4050, L100.0100 #### [facility] [address] [place], [address] T PROT 7.9 g/dL Normal 5.9-8.4 [facility] Comment on above: Performed By: #### L 500.4050, L100.0100 #### [facility] [address] [place], [address] Urea nitrogen [Mass/Vol] 23 mg/dL High 4-19 [facility] Comment on above: Performed By: #### L 500.4050, L100.0100 #### [facility] [address] [place], [address] Creatinine [Mass/Vol]Ordered By: Martin Evans on 05-23-2024 Serum creatinine measurement (mass/volume) 0.98 mg/dL 0.70-1.20 [facility] Eosinophil percentageOrdered By: Martin Evans on 05-23-2024 Eosinophils/100 WBC (Bld) 4.5 % 0-5 [facility] Eosinophil percentage 4.5 % 0-5 [facility] Erythrocyte distribution wid th (RBC) [Ratio]Ordered By: Martin Evans on 05-23-2024 Erythrocyte distribution width ratio 12.1 % 11.6-14.6 [facility] Erythrocyte distribution width standard deviation 42.4 fl 35.1-43.9 [facility] Erythrocyte distribution wid th ratioOrdered By: Martin Evans on 05-23-2024 Erythrocyte distribution width (RBC) [Ratio] 12.1 % 11.6-14.6 [facility] Erythrocyte distribution wid th standard deviationOrdered By: Martin Evans on 05-23-2024 Erythrocyte distribution width (RBC) [Ratio] 42.4 fl 35.1-43.9 [facility] GFR/1.73 sq M.predicted mark g non-blacks MDRD (S/P/Bld) [Vol rate/Area]Ordered By: Martin Evans on 05-23-2024 Glomerular filtration rate (GFR) estimation/1.73 sq m using serum, plasma, or whole b 65 >60 [facility] Glomerular filtration rate ( GFR) estimation/1.73 sq m using serum, plasma, or whole bOrdered By: Martin Evans on 05-23-2024 GFR/1.73 sq M.predicted among non-blacks MDRD (S/P/Bld) [Vol rate/Area] 65 mL/min/{1.73_m2} >60 [facility] Glucose [Mass/Vol]Ordered By : Martin Evans on 05-23-2024 Serum glucose measurement (mass/volume) 119 mg/dL High 70-99 [facility] Hematocrit Auto (Bld) [Volum e fraction]Ordered By: Martin Evans on 05-23-2024 Hematocrit (Bld) [Volume fraction] 38.8 % 37-47 [facility] Automated blood hematocrit (percentage) 38.8 % 37-47 [facility] Hemoglobin measurementOrdere d By: Martin Evans on 05-23-2024 Hemoglobin (Bld) [Mass/Vol] 13.0 g/dL 12.0-15.0 [facility] Hemoglobin measurement 13.0 g/dL 12.0-15.0 [facility] Immature granulocytes/100 WB C Auto (Bld)Ordered By: Martin Evans on 05-23-2024 Immature granulocytes/100 WBC (Bld) 0.400 % 0.0-0.9 [facility] Automated immature granulocyte percentage 0.400 % 0.0-0.9 [facility] Internal Medicine Office Vis diann 05-23-2024 Internal Medicine Office Visit [facility] [address] [place], [place] [address] OFFICE VISIT Date of Service: 05/23/24 MR#: [id number] Acct: [id number] Name: TANVI GARZA Rep #: [id number] : 1960 Provider: Dr. Martin oreilly MD Age/Sex: 63/F Location: [facility] Status: Signed Intake Vital Signs 02/24/24 09:02 [...] you fallen in the past year?: No [facility] Medical History (Updated 05/23/24 @ 12:42 by [...] H/O vulvectomy (more content not included)... Normal [facility] Lymphocytes Auto (Unsp spec) [#/Vol]Ordered By: Martin Evans on 05-23-2024 Absolute lymphocyte count 1.38 X10^3/uL 0.83-4.51 [facility] Lymphocytes/100 WBC Auto (Un sp spec)Ordered By: Martin Evans on 05-23-2024 Automated lymphocyte count as percentage of total leukocytes 17.6 % Low 19-41 [facility] MCV (RBC) [Entitic vol]Order ed By: Martin Evans on 05-23-2024 MCV (mean corpuscular volume) determination 94.6 fL 81-99 [facility] MCV (mean corpuscular volume ) determinationOrdered By: Martin Evans on 05-23-2024 MCV (RBC) [Entitic vol] 94.6 fL 81-99 [facility] Mean corpuscular hemoglobin (MCH) determinationOrdered By: Martin Evans on 05-23-2024 MCH (RBC) [Entitic mass] 31.7 pg 27.0-32.0 [facility] Mean corpuscular hemoglobin (MCH) determination 31.7 pg 27.0-32.0 [facility] Mean corpuscular hemoglobin concentration (MCHC) determinationOrdered By: Martin Evans on 05-23-2024 Mean corpuscular hemoglobin concentration (MCHC) determination 33.5 g/dL 32-36 [facility] Mean platelet volume determi nationOrdered By: Martin Evans on 05-23-2024 Mean platelet volume determination 11.4 fl 6.2-12.0 [facility] Monocyte percentageOrdered B y: Martin Evans on 05-23-2024 Monocytes/100 WBC (Bld) 7.9 % 0-10 [facility] Monocyte percentage 7.9 % 0-10 [facility] Neutrophil percentageOrdered By: Martin Evans on 05-23-2024 Neutrophils/100 WBC (Bld) 69.0 % 47-70 [facility] Neutrophil percentage 69.0 % 47-70 [facility] No Panel InformationOrdered By: Martin Evans on 05-23-2024 39 U/L High <32 [facility] Nucleated red blood cell per centageOrdered By: Martin Evans on 05-23-2024 Nucleated red blood cell percentage 0 % 0-5 [facility] Platelet countOrdered By: Karen Evans on 05-23-2024 Platelets (Bld) [#/Vol] 175 10*3/uL 150-450 [facility] Platelet count 175 K/mm3 150-450 [facility] Potassium (Unsp spec) [Mass/ Vol]Ordered By: Martin Evans on 05-23-2024 Potassium measurement (mass/volume) 4.0 mmol/L 3.3-5.1 [facility] Potassium measurement (mass/ volume)Ordered By: Martin Evans on 05-23-2024 Potassium (Unsp spec) [Mass/Vol] 4.0 mmol/L 3.3-5.1 [facility] RBC Auto (Bld) [#/Vol]Ordere d By: Martin Evans on 05-23-2024 RBC (Bld) [#/Vol] 4.10 10*6/uL Low 4.2-5.4 [facility] Automated blood erythrocyte count 4.10 M/mm3 Low 4.2-5.4 [facility] Serum creatinine measurement (mass/volume)Ordered By: Martin Evans on 05-23-2024 Creatinine [Mass/Vol] 0.98 mg/dL 0.70-1.20 [facility] Serum globulin measurementOr dered By: Martin Evans on 05-23-2024 Globulin (S) [Mass/Vol] 3.3 g/dL 2.2-4.2 [facility] Serum globulin measurement 3.3 g/dL 2.2-4.2 [facility] Serum glucose measurement (m ass/volume)Ordered By: Martin Evans on 05-23-2024 Glucose [Mass/Vol] 119 mg/dL High 70-99 [facility] Serum or plasma alanine joy otransferase (ALT) measurementOrdered By: Martin Evans on 05-23-2024 ALT [Catalytic activity/Vol] 25 U/L <35 [facility] Serum or plasma albumin omero urement (mass/volume)Ordered By: Martin Evans on 05-23-2024 Albumin [Mass/Vol] 4.6 g/dL 3.4-4.8 [facility] Serum or plasma albumin/glob ulin mass ratioOrdered By: Martin Evans on 05-23-2024 Albumin/Globulin [Mass ratio] 1.4 {ratio} 0.9-2.4 [facility] Serum or plasma alkaline kaitlynn sphatase measurementOrdered By: Martin Evans on 05-23-2024 ALP [Catalytic activity/Vol] 123 U/L High 35-104 [facility] Serum or plasma calcium omero urement (mass/volume)Ordered By: Martin Evans 05-23-2024 Calcium [Mass/Vol] 8.9 mg/dL 7.6-11.0 [facility] Serum or plasma urea nitroge n measurement (mass/volume)Ordered By: Karendioncamerontyron Stubbspieterwesley on 05-23-2024 Urea nitrogen [Mass/Vol] 23 mg/dL High 06-25 [facility] Sodium levelOrdered By: Karendion beck Enocjayda on 05-23-2024 Sodium [Moles/Vol] 138 mmol/L 133-145 [facility] Sodium level 138 mmol/L 133-145 [facility] Total proteinOrdered By: Michael garcia Enocjayda on 05-23-2024 Protein [Mass/Vol] 7.9 g/dL 5.9-8.4 [facility] Total protein 7.9 g/dL 5.9-8.4 [facility] Urea nitrogen [Mass/Vol]Orde red By: Martin Enocjayda on 05-23-2024 Serum or plasma urea nitrogen measurement (mass/volume) 23 mg/dL High 06-25 [facility] White blood cell (WBC) count Ordered By: Karendionebony Enocjayda on 05-23-2024 WBC (Bld) [#/Vol] 7.8 10*3/uL 4.4-11.0 [facility] White blood cell (WBC) count 7.8 K/mm3 4.4-11.0 [facility] Pacemaker Checkon 04-18-2024 Pacemaker Check [facility] [address] [place] [address]. [address] [place] [address] Pacemaker Check Date of Service: 04/18/24 1458 MR#: [id number] Acct: [id number] Name: NICK GARZAMANJULA Hwang Rep #: [id number] : 1960 From: Aliyah Aguilar Age/Sex: 63/F Location: [place] Status: Signed Billing Codes ICD Device Billin ICD Dev Prog Eval, Multi Assessment and Plan Assessment and Plan (1) Presence of biventricular implantable cardioverter-defibril lator (ICD): Status: Chronic Comment: 09/19/2008, Gen change 03/10/24 with new LBB lead placed mid RV septum for LV pacing (2) Chronic systolic (congestive) heart failure: Status: Chronic (3) Nonischemic cardiomyopathy: Status: Chronic 04/18/24 1459 Date Aliyah Gannonigner Signature: Date (if applicable) CC: Normal [facility] Pacemaker Checkon 03-21-2024 Pacemaker Check [facility] [address] [place] [address] Pacemaker Check Date of Service: 03/21/24 1329 MR#: [id number] Acct: [id number] Name: TANVI GARZA Rep #: [id number] : 1960 From: Aliyah Jeff Age/Sex: 63/F Location: [place] Status: Signed Billing Codes ICD Device Billin ICD Dev Prog Eval, Multi Assessment and Plan Assessment and Plan (1) ICD (implantable cardioverter-defibril lator) battery depletion: Status: Resolved Comment: DIE FINISHER-D change out [facility] 03/10/24 (2) Malfunction of implantable defibrillator ventricular (ICD) lead: Status: Resolved Comment: New BSX DIE FINISHER-D implanted [facility] 03/10/24 BSX Inogen [id number] LV CS lead capped with [id number] plug. LBB lead implanted mid RV septum for LBB pacing 03/10/24 BSX [id number] (3) Nonischemic cardiomyopathy: Status: Chronic (4) Presence [...] automatic (implantable) cardiac defibrillator 03/21/24 1330 Date Aliyah Gannonignjericho Signature: Date (if applicable) CC: Normal [facility] BASIC METABOLIC PANELon Anion gap [Moles/Vol] 11 mmol/L Normal 7-17 [facility] Comment on above: Performed By: #### P LAT #### [facility] (DEFAULT) [address] [address] Calcium [Mass/Vol] 9.1 mg/dL Normal 8.6-10.5 [facility] Comment on above: Performed By: #### P LAT #### [facility] (DEFAULT) [address] [address] Chloride [Moles/Vol] 103 mmol/L Normal 98-108 [facility] Comment on above: Performed By: #### P LAT #### [facility] (DEFAULT) [address] [address] CO2 [Moles/Vol] 28 mmol/L Normal 21-31 [facility] Comment on above: Performed By: #### P LAT #### [facility] (DEFAULT) [address] [address] Creatinine [Mass/Vol] 0.90 mg/dL Normal 0.50-1.20 [facility] Comment on above: Performed By: #### P LAT #### [facility] (DEFAULT) [address] [address] GFR/1.73 sq M.predicted among non-blacks MDRD (S/P/Bld) [Vol rate/Area] 72 mL/min/{1.73_m2} Normal >=60 [facility] Comment on above: Result Comment: Repo rted eGFR is based on the CKD-EPI 2020 equation using creatinine, age, and sex. Performed By: #### P LAT #### [facility] (DEFAULT) [address] [place] [address] Glucose [Mass/Vol] 113 mg/dL High 70-99 [facility] Comment on above: Performed By: #### P LAT #### [facility] (DEFAULT) [address] [place] [address] Osmolality [Osmolality] 290 mosm/kg Normal 278-305 [facility] Comment on above: Performed By: #### P LAT #### [facility] (DEFAULT) [address] [place] [address] Potassium [Moles/Vol] 4.8 mmol/L Normal 3.5-5.0 [facility] Comment on above: Performed By: #### P LAT #### [facility] (DEFAULT) [address] [place] [address] Sodium [Moles/Vol] 137 mmol/L Normal 135-145 [facility] Comment on above: Performed By: #### P LAT #### [facility] (DEFAULT) [address] [place] [address] Urea nitrogen [Mass/Vol] 14 mg/dL Normal 7-25 [facility] Comment on above: Performed By: #### P LAT #### [facility] (DEFAULT) [address] [place] [address] Urea nitrogen/Creatinine [Mass ratio] 16 mg/mg Normal [facility] Comment on above: Performed By: #### P LAT #### [facility] (DEFAULT) [address] [place] [address] EP PROCEDURE - EPS/ABLATION/ DEVICEon 03-11-2024 EP [...] with excellent sensing and capture thresholds. Old DIE FINISHER-D generator removed. New DIE FINISHER-D generator implanted. Normal DIE FINISHER-D function with narrowest QRSd with LV pre-excited 80 msec from RV. Procedure tolerated well. Recommendations: Routine post-op wound care. Chest Xray. Follow-up with [place] [facility]. Table formatting from the original result was not included. Tanvi Garza EP Procedure - EPS/Ablation/Device Ordering Physician: DARREN ENGLE Order #: [id number] Study Date: 03/10/2024 Patient Information Name MRN Description Tanvi Hwang Joel [id number] 63 y.o. female Physicians Panel Physicians Referring [...] with excellent sensing and capture thresholds. Old DIE FINISHER-D generator removed. New DIE FINISHER-D generator implanted. Normal DIE FINISHER-D function with narrowest QRSd with LV pre-excited 80 msec from RV. Procedure tolerated well. Recommendations: Routine post-op wound care. Chest Xray. Follow-up with [place] [facility]. Consent The procedure was explained [...] accessed using a single axillary vein stick (Kapil). A new lead was placed into the [...] ICD Defibrillator Cardiac 3d .99cm Spiral 5.37x8.18cm Sequent - [id number] - Implanted Inventory item: DEFIBRILLATOR CARDIAC 3D .99CM SPIRAL 5.37X8.18CM INOGEN Model/Cat number: [id number] Serial number: [id number] [employer] Tank[employer] Driver: [employer] Lot number: [id number] Date Implanted: 03/10/2024 Initial Device: No Pocket Location: Pre-pectoral As of 03/10/2024 Status: Implanted Lead Securement: 5 set screws torqued Mode: DDD Lower Rate: 60 Upper Rate: 140 VT (more content not included)... Normal [facility] Electrophysiology studyon Body surface area Derived from formula 1.49 [facility] demonstrate d patent left axillary to SVC. Successful implantation of a new LBBA pacing lead to mid-RV septum and screwed deep to achieve LBB/LV pacing. Stim to peak in V5 was 73 msec/total paced QRS was 88 msec. Chronic CS lead capped. Chronic RA and RV leads continuously utilized with excellent sensing and capture thresholds. Old DIE FINISHER-D generator removed. New DIE FINISHER-D generator implanted. Normal DIE FINISHER-D function with narrowest QRSd with LV pre-excited 80 msec from RV. Procedure tolerated well. Recommendations: Routine post-op wound care. Chest Xray. Follow-up with [place] [facility]. [facility] - Chemistry and C hemistry - challengeon 03-11-2024 Glucose [Mass/Vol] 158 mg/dL High 70 - 99 mg/dL [facility] Magnesium [Mass/Vol] 2.6 mg/dL 1.6 - 2 .6 mg/dL [facility] - Chemistry and C hemistry - challengeOrdered By: Justyna Romero on 03-11-2024 Anion gap [Moles/Vol] 11 mmol/L 7 - 17 mmol/L [facility] Calcium [Mass/Vol] 9.1 mg/dL 8.6 - 10. 5 mg/dL [facility] Chloride [Moles/Vol] 103 mmol/L 98 - 10 8 mmol/L [facility] CO2 [Moles/Vol] 28 mmol/L 21 - 31 mmol/L [facility] Creatinine [Mass/Vol] 0.90 mg/dL 0.50 - 1.20 mg/dL [facility] Glucose [Mass/Vol] 113 mg/dL High 70 - 99 mg/dL [facility] Osmolality Calc [Osmolality] 290 [facility] Potassium [Moles/Vol] 4.8 mmol/L 3.5 - 5.0 mmol/L [facility] Sodium [Moles/Vol] 137 mmol/L 135 - 145 mmol/L [facility] Urea nitrogen [Mass/Vol] 14 mg/dL 7 - 25 mg/dL [facility] Urea nitrogen/Creatinine [Mass ratio] 16 mg/mg [facility] - Hematology and Cell countson 03-11-2024 Platelet mean volume (Bld) [Entitic vol] 11.4 fL 8.5 - 12.2 fL [facility] Platelets (Bld) [#/Vol] 166 10*3/uL 150 - 393 K/uL [facility] MAGNESIUMon 03-11-2024 Magnesium [Mass/Vol] 2.6 mg/dL Normal 1.6-2.6 [facility] Comment on above: Order Comment: [facility] Electrolyte Replacement Protocol: Check prior to replacing potassium. Recheck magnesium level eight (8) hours after each 4g Magnesium Sulfate dose if most recent magnesium level is less than 1.3 mg/dL. Draw with next day morning labs after replacements for previous magnesium levels between 1.3-1.9 mg/dL. Performed By: #### P LAT #### [facility] (DEFAULT) [address] [place] [address] No Panel Informationon 03-11 [facility] Interpretation and review of laboratory results Abnormal [facility] POC Sample Type CAPBL [facility] Test performed at address of the patient encounter. [facility] Interpretation and review of laboratory results Normal [facility] Interpretation and review of laboratory results Normal [facility] Radiology Study observation (narrative) [facility] No Panel InformationOrdered By: Justyna Romero on 03-11-2024 eGFR, CKD-EPI, Female 73 - PINF [facility] Comment on above: Reported eGFR is bas ed on the CKD-EPI 2020 equation using creatinine, age, and sex. Interpretation and review of laboratory results Abnormal [facility] PLATELET COUNTon 03-11-2024 Platelet mean volume (Bld) [Entitic vol] 11.4 fL Normal 8.5-12.2 [facility] Comment on above: Performed By: #### P LAT #### [facility] (DEFAULT) [address] [place] [address] Platelets (Bld) [#/Vol] 166 10*3/uL Normal 150-393 [facility] Comment on above: Performed By: #### P LAT #### [facility] (DEFAULT) [address] [place] [address] CBC,PLATELETSon 03-10-2024 Hematocrit (Bld) [Volume fraction] 39.3 % Normal 34.9-44.3 [facility] Comment on above: Performed By: #### H EMOGC #### [facility] (DEFAULT) [address] [place] [address] Hemoglobin (Bld) [Mass/Vol] 13.1 g/dL Normal 11.4-15.2 [facility] Comment on above: Performed By: #### H EMOGC #### [facility] (DEFAULT) [address] [place] [address] MCV (RBC) [Entitic vol] 93.3 fL Normal 79.6-97.7 [facility] Comment on above: Performed By: #### H EMOGC #### [facility] (DEFAULT) [address] [place] [address] Mean Cell Hgb 31.1 pg Normal 25.9-33.9 [facility] Comment on above: Performed By: #### H EMOGC #### [facility] (DEFAULT) [address] [place] [address] Mean Cell Hgb Conc 33.3 g/dL Normal 31.4-35.9 [facility] Comment on above: Performed By: #### H EMOGC #### [facility] (DEFAULT) [address] [place] [address] Platelet mean volume (Bld) [Entitic vol] 11.3 fL Normal 8.5-12.2 [facility] Comment on above: Performed By: #### H EMOGC #### [facility] (DEFAULT) [address] [place] [address] Platelets (Bld) [#/Vol] 163 10*3/uL Normal 150-393 [facility] Comment on above: Performed By: #### H EMOGC #### [facility] (DEFAULT) [address] [place] [address] RBC (Bld) [#/Vol] 4.21 10*6/uL Normal 3.91-5.04 [facility] Comment on above: Performed By: #### H EMOGC #### [facility] (DEFAULT) [address] [place] [address] RBC Distribution 12.3 % Normal 10.8-14.9 [facility] Comment on above: Performed By: #### H EMOGC #### [facility] (DEFAULT) [address] [place] [address] WBC (Bld) [#/Vol] 5.82 10*3/uL Normal 3.99-11.19 [facility] Comment on above: Performed By: #### H EMOGC #### [facility] (DEFAULT) [address] [place] [address] CHEM 7 (LYTES,BUN,CREA,GLUC) on 03-10-2024 Anion gap [Moles/Vol] 12 mmol/L Normal 7-17 [facility] Comment on above: Performed By: #### C HM7, MGO #### [facility] (DEFAULT) [address] [place] [address] Chloride [Moles/Vol] 100 mmol/L Normal 98-108 [facility] Comment on above: Performed By: #### C HM7, MGO #### [facility] (DEFAULT) [address] [place] [address] CO2 [Moles/Vol] 29 mmol/L Normal 21-31 [facility] Comment on above: Performed By: #### C HM7, MGO #### [facility] (DEFAULT) [address] [place] [address] Creatinine [Mass/Vol] 0.91 mg/dL Normal 0.50-1.20 [facility] Comment on above: Performed By: #### C HM7, MGO #### [facility] (DEFAULT) [address] [place] [address] GFR/1.73 sq M.predicted among non-blacks MDRD (S/P/Bld) [Vol rate/Area] 71 mL/min/{1.73_m2} Normal >=60 [facility] Comment on above: Result Comment: Repo rted eGFR is based on the CKD-EPI 2020 equation using creatinine, age, and sex. Performed By: #### C HM7, MGO #### [facility] (DEFAULT) [address] [place] [address] Glucose [Mass/Vol] 102 mg/dL High 70-99 [facility] Comment on above: Performed By: #### C HM7, MGO #### [facility] (DEFAULT) [address] [place] [address] Osmolality [Osmolality] 288 mosm/kg Normal 278-305 [facility] Comment on above: Performed By: #### C HM7, MGO #### [facility] (DEFAULT) [address] [place] [address] Potassium [Moles/Vol] 3.8 mmol/L Normal 3.5-5.0 [facility] Comment on above: Performed By: #### C HM7, MGO #### [facility] (DEFAULT) [address] [place] [address] Sodium [Moles/Vol] 137 mmol/L Normal 135-145 [facility] Comment on above: Performed By: #### C HM7, MGO #### [facility] (DEFAULT) [address] [place] [address] Urea nitrogen [Mass/Vol] 16 mg/dL Normal 7-25 [facility] Comment on above: Performed By: #### C HM7, MGO #### [facility] (DEFAULT) [address] [place] [address] Urea nitrogen/Creatinine [Mass ratio] 18 mg/mg Normal [facility] Comment on above: Performed By: #### C HM7, MGO #### [facility] (DEFAULT) [address] [place] [phone] Electrophysiology studyon Radiology Study observation (narrative) [facility] - Chemistry and C hemistry - challengeon 03-10-2024 Glucose [Mass/Vol] 163 mg/dL High 70 - 99 mg/dL [facility] Glucose [Mass/Vol] 121 mg/dL High 70 - 99 mg/dL [facility] Glucose [Mass/Vol] 120 mg/dL High 70 - 99 mg/dL [facility] Magnesium [Mass/Vol] 1.4 mg/dL Low 1.6 - 2 .6 mg/dL [facility] Anion gap [Moles/Vol] 12 mmol/L 7 - 17 mmol/L [facility] Chloride [Moles/Vol] 100 mmol/L 98 - 10 8 mmol/L [facility] CO2 [Moles/Vol] 29 mmol/L 21 - 31 mmol/L [facility] Creatinine [Mass/Vol] 0.91 mg/dL 0.50 - 1.20 mg/dL [facility] Glucose [Mass/Vol] 102 mg/dL High 70 - 99 mg/dL [facility] Osmolality Calc [Osmolality] 288 [facility] Potassium [Moles/Vol] 3.8 mmol/L 3.5 - 5.0 mmol/L [facility] Sodium [Moles/Vol] 137 mmol/L 135 - 145 mmol/L [facility] Urea nitrogen [Mass/Vol] 16 mg/dL 7 - 25 mg/dL [facility] Urea nitrogen/Creatinine [Mass ratio] 18 mg/mg [facility] - Coagulationon 0 03-10-2024 aPTT Coag (PPP) [Time] 25.7 s [facility] INR Coag (Bld) [Relative time] 1.1 {INR} 0.9 - 1.1 [facility] PT Coag (PPP) [Time] 14.5 s [facility] - Hematology and Cell countson 03-10-2024 Erythrocyte distribution width (RBC) [Ratio] 12.3 % 10.8 - 14.9 % [facility] Hematocrit (Bld) [Volume fraction] 39.3 % 34.9 - 44.3 % [facility] Hemoglobin (Bld) [Mass/Vol] 13.1 g/dL 11.4 - 15.2 g/dL [facility] MCH (RBC) [Entitic mass] 31.1 pg 25.9 - 33.9 pg [facility] MCHC (RBC) [Mass/Vol] 33.3 g/dL 31.4 - 35.9 g/dL [facility] MCV (RBC) [Entitic vol] 93.3 fL 79.6 - 97.7 fL [facility] Platelet mean volume (Bld) [Entitic vol] 11.3 fL 8.5 - 12.2 fL [facility] Platelets (Bld) [#/Vol] 163 10*3/uL 150 - 393 K/uL [facility] RBC (Bld) [#/Vol] 4.21 10*6/uL [facility] WBC (Bld) [#/Vol] 5.82 10*3/uL 3.99 - 11. 19 K/uL [facility] MAGNESIUMon 03-10-2024 Magnesium [Mass/Vol] 1.4 mg/dL Low 1.6-2.6 [facility] Comment on above: Performed By: #### C HM7, MGO #### [facility] (DEFAULT) [address] [place] [address] No Panel Informationon 03-10 Interpretation and review of laboratory results Abnormal [facility] POC Sample Type CAPBL [facility] Test performed at address of the patient encounter. [facility] Interpretation and review of laboratory results Abnormal [facility] POC Sample Type CAPBL [facility] Test performed at address of the patient encounter. [facility] Interpretation and review of laboratory results Abnormal [facility] Interpretation and review of laboratory results Abnormal [facility] eGFR, CKD-EPI, Female 72 - PINF [facility] Comment on above: Reported eGFR is bas ed on the CKD-EPI 2020 equation using creatinine, age, and sex. Interpretation and review of laboratory results Abnormal [facility] Interpretation and review of laboratory results Normal [facility] PT,INR,PTTon 03-10-2024 aPTT Coag (Bld) [Time] 25.7 s Normal 24.0-34.3 [facility] Comment on above: Performed By: #### P TPTT #### [facility] (DEFAULT) [address] [address] INR Coag (PPP) [Relative time] 1.1 {INR} Normal 0.9-1.1 [facility] Comment on above: Performed By: #### P TPTT #### [facility] (DEFAULT) [address] [address] PT Coag (PPP) [Time] 14.5 s High 11.9-14.2 [facility] Comment on above: Performed By: #### P TPTT #### [facility] (DEFAULT) [address] [address] XR CHEST PA AND LATERAL 2 EWSon [...] No pneumothorax status post pacemaker/ICD placement. Normal [facility] XR Chest PA and Lateralon IMPRESSION: No [...] Please page the on-call EP fellow at [phone] with any emergent finding such as pneumothorax.; [...] IMPRESSION: No pneumothorax status post pacemaker/ICD placement. [facility] Radiology Study observation (narrative) [facility] XR Chest PA and LateralOrder ed By: Matthew Mcnulty on 03-10-2024 [facility] Work Phone: BASIC METABOLIC PANELon -0 Anion gap [Moles/Vol] 10 mmol/L Normal 7-17 [facility] Comment on above: Performed By: #### C 7C #### [facility] (DEFAULT) [address] [place] [address] Calcium [Mass/Vol] 8.9 mg/dL Normal 8.6-10.5 [facility] Comment on above: Performed By: #### C 7C #### [facility] (DEFAULT) [address] [place] [address] Chloride [Moles/Vol] 105 mmol/L Normal 98-108 [facility] Comment on above: Performed By: #### C 7C #### [facility] (DEFAULT) [address] [place] [address] CO2 [Moles/Vol] 27 mmol/L Normal 21-31 [facility] Comment on above: Performed By: #### C 7C #### [facility] (DEFAULT) [address] [place] [address] Creatinine [Mass/Vol] 0.82 mg/dL Normal 0.50-1.20 [facility] Comment on above: Performed By: #### C 7C #### [facility] (DEFAULT) [address] [place] [address] GFR/1.73 sq M.predicted among non-blacks MDRD (S/P/Bld) [Vol rate/Area] 81 mL/min/{1.73_m2} Normal >=60 [facility] Comment on above: Result Comment: Repo rted eGFR is based on the CKD-EPI 2020 equation using creatinine, age, and sex. Performed By: #### C 7C #### [facility] (DEFAULT) [address] [address] Glucose [Mass/Vol] 103 mg/dL High 70-99 [facility] Comment on above: Performed By: #### C 7C #### [facility] (DEFAULT) [address] [place] [address] Osmolality [Osmolality] 291 mosm/kg Normal 278-305 [facility] Comment on above: Performed By: #### C 7C #### [facility] (DEFAULT) [address] [address] Potassium [Moles/Vol] 4.3 mmol/L Normal 3.5-5.0 [facility] Comment on above: Performed By: #### C 7C #### [facility] (DEFAULT) [address] [address] Sodium [Moles/Vol] 138 mmol/L Normal 135-145 [facility] Comment on above: Performed By: #### C 7C #### [facility] (DEFAULT) [address] [address] Urea nitrogen [Mass/Vol] 15 mg/dL Normal 7-25 [facility] Comment on above: Performed By: #### C 7C #### [facility] (DEFAULT) [address] [place] [address] Urea nitrogen/Creatinine [Mass ratio] 18 mg/mg Normal [facility] Comment on above: Performed By: #### C 7C #### [facility] (DEFAULT) [address] [place] [address] CBC,PLATELETSon 03-09-2024 Hematocrit (Bld) [Volume fraction] 36.8 % Normal 34.9-44.3 [facility] Comment on above: Performed By: #### P LAT #### [facility] (DEFAULT) [address] [place] [address] Hemoglobin (Bld) [Mass/Vol] 12.4 g/dL Normal 11.4-15.2 [facility] Comment on above: Performed By: #### P LAT #### [facility] (DEFAULT) [address] [place] [address] MCV (RBC) [Entitic vol] 93.9 fL Normal 79.6-97.7 [facility] Comment on above: Performed By: #### P LAT #### [facility] (DEFAULT) [address] [place] [address] Mean Cell Hgb 31.6 pg Normal 25.9-33.9 [facility] Comment on above: Performed By: #### P LAT #### [facility] (DEFAULT) [address] [place] [address] Mean Cell Hgb Conc 33.7 g/dL Normal 31.4-35.9 [facility] Comment on above: Performed By: #### P LAT #### [facility] (DEFAULT) [address] [place] [address] Mean Platelet Volume Normal [facility] Comment on above: Result Comment: Not measured Performed By: #### P LAT #### [facility] (DEFAULT) [address] [place] [address] Platelets (Bld) [#/Vol] 124 10*3/uL Low 150-393 [facility] Comment on above: Performed By: #### P LAT #### [facility] (DEFAULT) [address] [place] [address] RBC (Bld) [#/Vol] 3.92 10*6/uL Normal 3.91-5.04 [facility] Comment on above: Performed By: #### P LAT #### [facility] (DEFAULT) [address] [place] [address] RBC Distribution 12.6 % Normal 10.8-14.9 [facility] Comment on above: Performed By: #### P LAT #### [facility] (DEFAULT) [address] [place] [address] WBC (Bld) [#/Vol] 5.21 10*3/uL Normal 3.99-11.19 [facility] Comment on above: Performed By: #### P LAT #### [facility] (DEFAULT) [address] [place] [address] Laboratory - Chemistry and C hemistry - challengeon 03-09-2024 Glucose [Mass/Vol] 112 mg/dL High 70 - 99 mg/dL [facility] Glucose [Mass/Vol] 115 mg/dL High 70 - 99 mg/dL [facility] Glucose [Mass/Vol] 118 mg/dL High 70 - 99 mg/dL [facility] Glucose [Mass/Vol] 111 mg/dL High 70 - 99 mg/dL [facility] Anion gap [Moles/Vol] 10 mmol/L 7 - 17 mmol/L [facility] Calcium [Mass/Vol] 8.9 mg/dL 8.6 - 10. 5 mg/dL [facility] Chloride [Moles/Vol] 105 mmol/L 98 - 10 8 mmol/L [facility] CO2 [Moles/Vol] 27 mmol/L 21 - 31 mmol/L [facility] Creatinine [Mass/Vol] 0.82 mg/dL 0.50 - 1.20 mg/dL [facility] Glucose [Mass/Vol] 103 mg/dL High 70 - 99 mg/dL [facility] Osmolality Calc [Osmolality] 291 [facility] Potassium [Moles/Vol] 4.3 mmol/L 3.5 - 5.0 mmol/L [facility] Sodium [Moles/Vol] 138 mmol/L 135 - 145 mmol/L [facility] Urea nitrogen [Mass/Vol] 15 mg/dL 7 - 25 mg/dL [facility] Urea nitrogen/Creatinine [Mass ratio] 18 mg/mg [facility] - Hematology and Cell countson 03-09-2024 Erythrocyte distribution width (RBC) [Ratio] 12.6 % 10.8 - 14.9 % [facility] Hematocrit (Bld) [Volume fraction] 36.8 % 34.9 - 44.3 % [facility] Hemoglobin (Bld) [Mass/Vol] 12.4 g/dL 11.4 - 15.2 g/dL [facility] MCH (RBC) [Entitic mass] 31.6 pg 25.9 - 33.9 pg [facility] MCHC (RBC) [Mass/Vol] 33.7 g/dL 31.4 - 35.9 g/dL [facility] MCV (RBC) [Entitic vol] 93.9 fL 79.6 - 97.7 fL [facility] Platelet mean volume (Bld) [Entitic vol] [facility] Comment on above: Not measured Platelets (Bld) [#/Vol] 124 10*3/uL Low 150 - 393 K/uL [facility] RBC (Bld) [#/Vol] 3.92 10*6/uL [facility] WBC (Bld) [#/Vol] 5.21 10*3/uL 3.99 - 11. 19 K/uL [facility] No Panel Informationon 03-09 Interpretation and review of laboratory results Abnormal [facility] POC Sample Type CAPBL [facility] Test performed at address of the patient encounter. [facility] Interpretation and review of laboratory results Abnormal [facility] POC Sample Type CAPBL [facility] Test performed at address of the patient encounter. [facility] Interpretation and review of laboratory results Abnormal [facility] POC Sample Type CAPBL [facility] Test performed at address of the patient encounter. [facility] Interpretation and review of laboratory results Abnormal [facility] POC Sample Type CAPBL [facility] Test performed at address of the patient encounter. [facility] eGFR, CKD-EPI, Female 82 - PINF [facility] Comment on above: Reported eGFR is bas ed on the CKD-EPI 2020 equation using creatinine, age, and sex. Interpretation and review of laboratory results Abnormal [facility] Interpretation and review of laboratory results Abnormal [facility] CHEM 7 (LYTES,BUN,CREA,GLUC) on 03-08-2024 Anion gap [Moles/Vol] 8 mmol/L Normal 7-17 [facility] Comment on above: Performed By: ###PRAMOD THOMAS #### [facility] (DEFAULT) [address] [place] [address] Chloride [Moles/Vol] 109 mmol/L High 98-108 [facility] Comment on above: Result Comment: Resu lts inconsistent with previous results Performed By: #### PRAMOD CHEN #### [facility] (DEFAULT) [address] [place] [address] CO2 [Moles/Vol] 25 mmol/L Normal - [facility] Comment on above: Performed By: ###PRAMOD THOMAS #### [facility] (DEFAULT) [address] [place] [address] Creatinine [Mass/Vol] 0.75 mg/dL Normal 0.50-1.20 [facility] Comment on above: Performed By: ###Andrés VALERIO CHM7 #### [facility] (DEFAULT) [address] [place] [address] GFR/1.73 sq M.predicted among non-blacks MDRD (S/P/Bld) [Vol rate/Area] 90 mL/min/{1.73_m2} Normal >=60 [facility] Comment on above: Result Comment: Repo rted eGFR is based on the CKD-EPI 2020 equation using creatinine, age, and sex. Performed By: #### Aaron VALERIO CHM7 #### [facility] (DEFAULT) [address] [place] [address] Glucose [Mass/Vol] 109 mg/dL High 70-99 [facility] Comment on above: Performed By: #### Aaron VALERIO CHM7 #### [facility] (DEFAULT) [address] [place] [address] Osmolality [Osmolality] 290 mosm/kg Normal 278-305 [facility] Comment on above: Performed By: #### Aaron VALERIO CHM7 #### [facility] (DEFAULT) [address] [place] [address] Potassium [Moles/Vol] 4.5 mmol/L Normal 3.5-5.0 [facility] Comment on above: Performed By: #### Aaron VALERIO, CHM7 #### [facility] (DEFAULT) [address] [place] [address] Sodium [Moles/Vol] 137 mmol/L Normal 135-145 [facility] Comment on above: Performed By: #### Aaron VALERIO CHM7 #### [facility] (DEFAULT) [address] [place] [address] Urea nitrogen [Mass/Vol] 17 mg/dL Normal 7-25 [facility] Comment on above: Performed By: #### Aaron VALERIO CHM7 #### [facility] (DEFAULT) [address] [place] [address]68 Urea nitrogen/Creatinine [Mass ratio] 23 mg/mg Normal [facility] Comment on above: Performed By: #### M , [facility] #### [facility] (DEFAULT) [address] [place] [address] Laboratory - Chemistry and C hemistry - challengeon 03-08-2024 Glucose [Mass/Vol] 143 mg/dL High 70 - 99 [facility] [Mass/Vol] 131 mg/dL High 70 - 99 mg/dL [facility] Glucose [Mass/Vol] 127 mg/dL High 70 - 99 mg/dL [facility] Glucose [Mass/Vol] 109 mg/dL High 70 - 99 mg/dL [facility] Magnesium [Mass/Vol] 1.8 mg/dL 1.6 - 2 .6 mg/dL [facility] - Chemistry and C hemistry - challengeOrdered By: Ena Peacock on 03-08-2024 Anion gap [Moles/Vol] 8 mmol/L 7 - 17 mmol/L [facility] Chloride [Moles/Vol] 109 mmol/L High 98 - 10 8 mmol/L [facility] Comment on above: Results inconsistent with previous results CO2 [Moles/Vol] 25 mmol/L 21 - 31 mmol/L [facility] Creatinine [Mass/Vol] 0.75 mg/dL 0.50 - 1.20 mg/dL [facility] Glucose [Mass/Vol] 109 mg/dL High 70 - 99 mg/dL [facility] Osmolality Calc [Osmolality] 290 [facility] Potassium [Moles/Vol] 4.5 mmol/L 3.5 - 5.0 mmol/L [facility] Sodium [Moles/Vol] 137 mmol/L 135 - 145 mmol/L [facility] Urea nitrogen [Mass/Vol] 17 mg/dL 7 - 25 mg/dL [facility] Urea nitrogen/Creatinine [Mass ratio] 23 mg/mg [facility] - Hematology and Cell countson 03-08-2024 Platelet mean volume (Bld) [Entitic vol] [facility] Comment on above: Not measured Platelets (Bld) [#/Vol] 126 10*3/uL Low 150 - 393 K/uL [facility] MAGNESIUMon 03-08-2024 Magnesium [Mass/Vol] 1.8 mg/dL Normal 1.6-2.6 [facility] Comment on above: Performed By: #### M GO, CHM7 #### [facility] (DEFAULT) [address] [place] [address] No Panel Informationon 03-08 Interpretation and review of laboratory results Abnormal [facility] Test performed at address of the patient encounter. [facility] Interpretation and review of laboratory results Abnormal [facility] POC Sample Type CAPBL [facility] Test performed at address of the patient encounter. [facility] Interpretation and review of laboratory results Abnormal [facility] POC Sample Type CAPBL [facility] Test performed at address of the patient encounter. [facility] Interpretation and review of laboratory results Abnormal [facility] POC Sample Type CAPBL [facility] Test performed at address of the patient encounter. [facility] Interpretation and review of laboratory results Normal [facility] Interpretation and review of laboratory results Abnormal [facility] No Panel InformationOrdered By: Ena Peacock on 03-08-2024 eGFR, CKD-EPI, Female 90 - PINF [facility] Comment on above: Reported eGFR is bas ed on the CKD-EPI 2020 equation using creatinine, age, and sex. Interpretation and review of laboratory results Abnormal [facility] PLATELET COUNTon 03-08-2024 Mean Platelet Volume Normal [facility] Comment on above: Result Comment: Not measured Performed By: #### P LAT #### [facility] (DEFAULT) [address] [place] [address] Platelets (Bld) [#/Vol] 126 10*3/uL Low 150-393 [facility] Comment on above: Performed By: #### P LAT #### [facility] (DEFAULT) [address] [place] [address] CALCIUMon 03-07-2024 Calcium [Mass/Vol] 9.2 mg/dL Normal 8.6-10.5 [facility] Comment on above: Performed By: #### P LAT #### [facility] (DEFAULT) [address] [place] [address] CBC,PLATELETSon 03-07-2024 Hematocrit (Bld) [Volume fraction] 39.9 % Normal 34.9-44.3 [facility] Comment on above: Performed By: #### H EMOGC #### [facility] (DEFAULT) [address] [place] [address] Hemoglobin (Bld) [Mass/Vol] 13.6 g/dL Normal 11.4-15.2 [facility] Comment on above: Performed By: #### H EMOGC #### [facility] (DEFAULT) [address] [place] [address] MCV (RBC) [Entitic vol] 93.2 fL Normal 79.6-97.7 [facility] Comment on above: Performed By: #### H EMOGC #### [facility] (DEFAULT) [address] [place] [address] Mean Cell Hgb 31.8 pg Normal 25.9-33.9 [facility] Comment on above: Performed By: #### H EMOGC #### [facility] (DEFAULT) [address] [address] Mean Cell Hgb Conc 34.1 g/dL Normal 31.4-35.9 [facility] Comment on above: Performed By: #### H EMOGC #### [facility] (DEFAULT) [address] [place] [address] Platelet mean volume (Bld) [Entitic vol] 12.2 fL Normal 8.5-12.2 [facility] Comment on above: Performed By: #### H EMOGC #### [facility] (DEFAULT) [address] [place] [address] Platelets (Bld) [#/Vol] 158 10*3/uL Normal 150-393 [facility] Comment on above: Performed By: #### H EMOGC #### [facility] (DEFAULT) [address] [place] [address] RBC (Bld) [#/Vol] 4.28 10*6/uL Normal 3.91-5.04 [facility] Comment on above: Performed By: #### H EMOGC #### [facility] (DEFAULT) [address] [place] [address]23 RBC Distribution 12.3 % Normal 10.8-14.9 [facility] Comment on above: Performed By: #### H EMOGC #### [facility] (DEFAULT) [address] [place] [address]658 WBC (Bld) [#/Vol] 6.60 10*3/uL Normal 3.99-11.19 [facility] Comment on above: Performed By: #### H EMOGC #### [facility] (DEFAULT) [address] [place] [address] CHEM 6 (LYTES, BUN CREA)on 1 Anion gap [Moles/Vol] 14 mmol/L Normal 7-17 [facility] Comment on above: Order Comment: Need creatinine level for venogram Performed By: #### P LAT #### [facility] (DEFAULT) [address] [place] [address] Chloride [Moles/Vol] 99 mmol/L Normal 98-108 [facility] Comment on above: Order Comment: Need creatinine level for venogram Performed By: #### P LAT #### [facility] (DEFAULT) [address] [place] [address] CO2 [Moles/Vol] 29 mmol/L Normal 21-31 [facility] Comment on above: Order Comment: Need creatinine level for venogram Performed By: #### P LAT #### [facility] (DEFAULT) [address] [place] [address]43 Creatinine [Mass/Vol] 0.81 mg/dL Normal 0.50-1.20 [facility] Comment on above: Order Comment: Need creatinine level for venogram Performed By: #### P LAT #### [facility] (DEFAULT) [address] [place] [address]71 GFR/1.73 sq M.predicted among non-blacks MDRD (S/P/Bld) [Vol rate/Area] 82 mL/min/{1.73_m2} Normal >=60 [facility] Comment on above: Order Comment: Need creatinine level for venogram Result Comment: Repo rted eGFR is based on the CKD-EPI 2020 equation using creatinine, age, and sex. Performed By: #### P LAT #### [facility] (DEFAULT) [address] [place] [address] Potassium [Moles/Vol] 3.6 mmol/L Normal 3.5-5.0 [facility] Comment on above: Order Comment: Need creatinine level for venogram Performed By: #### P LAT #### [facility] (DEFAULT) [address] [place] [address]84 Sodium [Moles/Vol] 138 mmol/L Normal 135-145 [facility] Comment on above: Order Comment: Need creatinine level for venogram Performed By: #### P LAT #### [facility] (DEFAULT) [address] [place] [address] Urea nitrogen [Mass/Vol] 13 mg/dL Normal 7-25 [facility] Comment on above: Order Comment: Need creatinine level for venogram Performed By: #### P LAT #### [facility] (DEFAULT) [address] [place] [address]81 Urea nitrogen/Creatinine [Mass ratio] 16 mg/mg Normal [facility] Comment on above: Order Comment: Need creatinine level for venogram Performed By: #### P LAT #### [facility] (DEFAULT) [address] [place] [address] EP PROCEDURE - EPS/ABLATION/ DEVICEon 03-07-2024 EP PROCEDURE - EPS/ABLATION/DEVICE Venogram template ELECTROPHYSIOLOGY SERVICE OPERATIVE REPORT PROCEDURE: Left sided venogram OPERATION PERFORMED: -Contrast venogram on left axillary vein Denial Resolution Specialist: Memo Yee MD CCEP FELLOW: None ANESTHESIA: None TIME OUT: Time out was completed with verification of the correct patient identity, procedure to be performed, procedure site and implanted equipment. INDICATION FOR PROCEDURE: H/o BIV ICD PROCEDURE AND FINDINGS: The patient was brought to the electrophysiology laboratory at [facility] in post-absorbtive state. Informed consent was given [...] questions in care of this patient. Memo eYe MD Rn Childchild therapist-Clinical Department of Cardiology [facility] Table formatting from the original result was not included. Tanvi Garza EP Procedure - EPS/Ablation/Device Ordering Physician: DARREN ENGLE Order #: [id number] Study Date: 03/07/2024 Patient Information Name MRN Description Tanvi Garza [id number] 63 y.o. female Physicians Panel Physicians Referring [...] PERFORMED: -Contrast venogram on left axillary vein Denial Resolution Specialist: Memo Yee MD CCEP FELLOW: None ANESTHESIA: None TIME OUT: Time out was completed with verification of the correct patient identity, procedure to be performed, procedure site and implanted equipment. INDICATION FOR PROCEDURE: H/o BIV ICD PROCEDURE AND FINDINGS: The patient was brought to the electrophysiology laboratory at [facility] in post-absorbtive state. Informed consent was given [...] care of this patient. Memo Yee MD Rn Childchild therapist-Clinical Department of Cardiology [facility] Consent The procedure was explained including the [...] no ABN associated with this order. Normal [facility] Electrophysiology studyOrder ed By: Memo Yee on 03-07-2024 Body surface area Derived from formula 1.49 m2 [facility] Work Phone: [facility] Work Phone: Electrophysiology studyon Venogram template ELECTROPHYSIOLOGY SERVICE OPERATIVE REPORT PROCEDURE: Left sided venogram OPERATION PERFORMED: -Contrast venogram on left axillary vein Denial Resolution Specialist: Memo Yee MD CCEP FELLOW: None ANESTHESIA: None TIME OUT: Time out was completed with verification of the correct patient identity, procedure to be performed, procedure site and implanted equipment. INDICATION FOR PROCEDURE: H/o BIV ICD PROCEDURE AND FINDINGS: The patient was brought to the electrophysiology laboratory at [facility] in post-absorbtive state. Informed consent was given [...] care of this patient. Memo Yee MD Rn Childchild therapist-Clinical Department of Cardiology [facility] Radiology Study observation (narrative) [facility] Laboratory - Chemistry and C hemistry - challengeon 03-07-2024 Glucose [Mass/Vol] 196 mg/dL High 70 - 99 mg/dL [facility] Anion gap [Moles/Vol] 14 mmol/L 7 - 17 mmol/L [facility] Calcium [Mass/Vol] 9.2 mg/dL 8.6 - 10. 5 mg/dL [facility] Chloride [Moles/Vol] 99 mmol/L 98 - 10 8 mmol/L [facility] CO2 [Moles/Vol] 29 mmol/L 21 - 31 mmol/L [facility] Creatinine [Mass/Vol] 0.81 mg/dL 0.50 - 1.20 mg/dL [facility] Phosphate [Mass/Vol] 2.7 mg/dL 2.2 - 4 .6 mg/dL [facility] Potassium [Moles/Vol] 3.6 mmol/L 3.5 - 5.0 mmol/L [facility] Sodium [Moles/Vol] 138 mmol/L 135 - 145 mmol/L [facility] Urea nitrogen [Mass/Vol] 13 mg/dL 7 - 25 mg/dL [facility] Urea nitrogen/Creatinine [Mass ratio] 16 mg/mg [facility] Laboratory - Chemistry and C hemistry - challengeOrdered By: Drew Naidu on 03-07-2024 Magnesium [Mass/Vol] 0.6 mg/dL Critically low 1.6 - 2.6 mg/dL [facility] Laboratory - Coagulationon 1 aPTT Coag (PPP) [Time] 25.7 s OS [facility] INR Coag (Bld) [Relative time] 1.2 {INR} High 0.9 - 1.1 [facility] PT Coag (PPP) [Time] 15.5 s High [facility] Laboratory - Hematology and Cell countson 03-07-2024 Erythrocyte distribution width (RBC) [Ratio] 12.3 % 10.8 - 14.9 % [facility] Hematocrit (Bld) [Volume fraction] 39.9 % 34.9 - 44.3 % [facility] Hemoglobin (Bld) [Mass/Vol] 13.6 g/dL 11.4 - 15.2 g/dL [facility] MCH (RBC) [Entitic mass] 31.8 pg 25.9 - 33.9 pg [facility] MCHC (RBC) [Mass/Vol] 34.1 g/dL 31.4 - 35.9 g/dL [facility] MCV (RBC) [Entitic vol] 93.2 fL 79.6 - 97.7 fL [facility] Platelet mean volume (Bld) [Entitic vol] 12.2 fL 8.5 - 12.2 fL [facility] Platelets (Bld) [#/Vol] 158 10*3/uL 150 - 393 K/uL [facility] RBC (Bld) [#/Vol] 4.28 10*6/uL [facility] WBC (Bld) [#/Vol] 6.60 10*3/uL 3.99 - 11. 19 K/uL [facility] MAGNESIUMon 03-07-2024 Magnesium [Mass/Vol] 0.6 mg/dL Critically low 1.6-2.6 [facility] Comment on above: Performed By: #### P LAT #### [facility] (DEFAULT) [address] [place] [address] No Panel Informationon 03-07 Interpretation and review of laboratory results Abnormal [facility] POC Sample Type CAPBL [facility] Test performed at address of the patient encounter. [facility] eGFR, CKD-EPI, Female 83 - PINF [facility] Comment on above: Reported eGFR is bas ed on the CKD-EPI 2020 equation using creatinine, age, and sex. Interpretation and review of laboratory results Normal [facility] Interpretation and review of laboratory results Abnormal [facility] Interpretation and review of laboratory results Normal [facility] No Panel InformationOrdered By: Drew Naidu on 03-07-2024 Interpretation and review of laboratory results Abnormal [facility] PHOSPHATE, INORGANICon 03-07 Phosphorous 2.7 mg/dL Normal 2.2-4.6 [facility] Comment on above: Performed By: #### P LAT #### [facility] (DEFAULT) [address] [place] [address] PT,INR,PTTon 03-07-2024 aPTT Coag (Bld) [Time] 25.7 s Normal 24.0-34.3 [facility] Comment on above: Performed By: #### P TPTT #### [facility] (DEFAULT) [address] [place] [address] INR Coag (PPP) [Relative time] 1.2 {INR} High 0.9-1.1 [facility] Comment on above: Performed By: #### P TPTT #### [facility] (DEFAULT) [address] [place] [address] PT Coag (PPP) [Time] 15.5 s High 11.9-14.2 [facility] Comment on above: Performed By: #### P TPTT #### [facility] ([facility]) [address] [place] [address] ALP [Catalytic activity/Vol] Ordered By: Nilda Pino on 02-24-2024 Serum or plasma alkaline phosphatase measurement 76 U/L 45-117 [facility] ALT [Catalytic activity/Vol] Ordered By: Nilda Pino on 02-24-2024 Serum or plasma alanine aminotransferase (ALT) measurement 36 U/L 13-56 [facility] Albumin [Mass/Vol]Ordered By : Nilda Pino on 02-24-2024 Serum or plasma albumin measurement (mass/volume) 4.2 g/dL 3.2-5.0 [facility] Bilirubin, totalOrdered By: Nilda Pino on 02-24-2024 Bilirubin, total 2.10 mg/dL High 0.20-1.00 [facility] Bilirubin.direct [Mass/Vol]O rdered By: Nilda Pino on 02-24-2024 Bilirubin direct 0.50 mg/dL High 0.00-0.30 [facility] Cholesterol [Mass/Vol]Ordere d By: Nilda Pino on 02-24-2024 Serum or plasma cholesterol measurement (mass/volume) 136 mg/dL <200 [facility] High density lipoprotein (HD L) measurementOrdered By: Nilda Pino on 02-24-2024 High density lipoprotein (HDL) measurement 69 mg/dL >40 [facility] Internal Medicine Office Vis iton 02-24-2024 Internal Medicine Office Visit [facility] [address] [place] [address] [address] [place] [address] OFFICE VISIT Date of Service: 02/24/24 MR#: [id number] Acct: [id number] Name: TANVI GARZA Rep #: [id number] : 1960 Provider: Dr. Martin oreilly MD Age/Sex: 63/F Location: [facility] Status: Signed Intake Vital Signs 11/16/23 09:22 [...] her prednisone from the Hospital on Thursday. [facility] Medical History (Updated 02/24/24 @ 10:58 [...] heart catheter (more content not included)... Normal [facility] Lipid Profileon 02-24-2024 Cholesterol [Mass/Vol] 136 mg/dL Normal 200 [facility] Comment on above: Result Comment: <200 mg/dL Desirable 200-240 mg/dL Borderline >240 mg/dL High Risk Performed By: #### L 500.3400, L500.4100 ####[facility] [address] [place], [address] Cholesterol in HDL [Mass/Vol] 69 mg/dL Normal [facility] Comment on above: Result Comment: The drugs N-Acetylcysteine and Metamizole may falsely depress this assay. Reference Range HDL <40 mg/dL Low HDL Cholesterol HDL >or= 60 mg/dL High HDL Cholesterol Performed By: #### L 500.3400, L500.4100 ####[facility] [address] [place], [address] Cholesterol in LDL [Mass/Vol] 47 mg/dL Normal 0-130 [facility] Comment on above: Performed By: #### L 500.3400, L500.4100 ####[facility] [address] [place], [address] Cholesterol in VLDL [Mass/Vol] 20 mg/dL Normal 5-40 [facility] Comment on above: Performed By: #### L 500.3400, L500.4100 ####[facility] [address] [place], [address] Triglyceride [Mass/Vol] 99 mg/dL Normal [facility] Comment on above: Result Comment: The drugs N-Acetylcysteine and Metamizole may falsely depress this assay. Serum Triglycerides Reference Interval Normal <150 mg/dL Borderline high 150 - 199 mg/dL High 200 - 499 mg/dL Very High > or = 500 mg/dL Performed By: #### L 500.3400, L500.4100 ####[facility] [address] [place], [address] Liver Profileon 02-24-2024 Albumin [Mass/Vol] 4.2 g/dL Normal 3.2-5.0 [facility] Comment on above: Performed By: #### L 500.3400, L500.4100 ####[facility] [address] [place], [address] ALK P 76 U/L Normal 45-117 [facility] Comment on above: Performed By: #### L 500.3400, L500.4100 ####[facility] [address] [place], [address] ALT [Catalytic activity/Vol] 36 U/L Normal 13-56 [facility] Comment on above: Performed By: #### L 500.3400, L500.4100 ####[facility] [address] [place], [address] AST [Catalytic activity/Vol] 32 U/L Normal 15-37 [facility] Comment on above: Performed By: #### L 500.3400, L500.4100 ####[facility] [address] [place], [address] Bilirubin [Mass/Vol] 2.10 mg/dL High 0.20-1.00 [facility] Comment on above: Result Comment: For patients on eltrombopag therapy, use of Dimension [place] TBIL is not recommended. Performed By: #### L 500.3400, L500.4100 ####[facility] [address] [place], [address] Bilirubin.direct [Mass/Vol] 0.50 mg/dL High 0.00-0.30 [facility] Comment on above: Performed By: #### L 500.3400, L500.4100 ####[facility] [address] [place], [address] Globulin (S) [Mass/Vol] 3.7 g/dL Normal 2.2-4.2 [facility] Comment on above: Performed By: #### L 500.3400, L500.4100 ####[facility] [address] [place], [address] T PROT 7.9 g/dL Normal 6.4-8.2 [facility] Comment on above: Performed By: #### L 500.3400, L500.4100 ####[facility] [address] [place], [address] Low density lipoprotein (LDL ) cholesterol measurementOrdered By: Nilda Pino on 02-24-2024 Low density lipoprotein (LDL) cholesterol measurement 47 mg/dL 0-130 [facility] Magnesiumon 02-24-2024 Magnesium [Mass/Vol] 1.6 mg/dL Normal 1.6-2.6 [facility] Comment on above: Performed By: #### L 501.5200 ####[facility] [address] [place], [address] Magnesium measurementOrdered By: Martin Evans on 02-24-2024 Magnesium measurement 1.6 mg/dL 1.6-2.6 [facility] No Panel InformationOrdered By: Nilda Pino on 02-24-2024 32 U/L 15-37 [facility] No Panel Informationon 02-23 6.2 % 4.2-6.3 [facility] Serum globulin measurementOr dered By: Nilda Pino on 02-24-2024 Serum globulin measurement 3.7 g/dL 2.2-4.2 [facility] Total proteinOrdered By: Clovis herbert Alvarez on 02-24-2024 Total protein 7.9 g/dL 6.4-8.2 [facility] Triglycerides measurementOrd ered By: Nilda Pino on 02-24-2024 Triglycerides measurement 99 mg/dL <199 [facility] Very low density lipoprotein (VLDL) cholesterol measurementOrdered By: Nilda Pino on 02-24-2024 Very low density lipoprotein (VLDL) cholesterol measurement 20 mg/dL 5-40 [facility] 12 Lead EKGon 02-16-2024 12 Lead EKG [facility] Services [address] [place] [address] 12 Lead EKG 02/16/24 0820 MR#: [id number] Acct: [id number] Name: TANVI GARZA Rep #: [id number] : 1960 63 From: Stewart Diane MD [...] Abnormal ECG Confirmed by BENEDICTO LEDESMA, STEWART ([id number]), medical editor SOLITARIO BRAY ([id number]) on 02/17/2024 12:39:35 PM Referred By: Confirmed By: STEWART DIANE MD 02/17/24 1239 Date Stewart Diane MD CC: Dr. Martin Evans MD; Dr. Alfonzo Rahman DO Signed Normal [facility] Absolute neutrophil countOrd ered By: Alfonzo Rahman on 02-16-2024 Absolute neutrophil count 6.9 X10^3/uL 2.0-7.7 [facility] BNP (brain natriuretic pepti de measurement)Ordered By: Alfonzo Rahman on 02-16-2024 BNP (brain natriuretic peptide measurement) 60.9 pg/mL 0-100 [facility] BNP,B-Type NATRIURETIC PEPTI Deondre 02-16-2024 Natriuretic peptide B (Bld) [Mass/Vol] 60.9 pg/mL Normal 0-100 [facility] Comment on above: Performed By: #### L 100.0100, L503.6620, L501.4020, L500.2500 ####[facility] [address] [place], [address] Basic Metabolic Profile (BMP )on 02-16-2024 BUN/CRE 14.0 RATIO Normal 10-20 [facility] Comment on above: Order Comment: 'TROP ' Serial specimen #1, #2 or #3: 1 Performed By: #### L 100.0100, L503.6620, L501.4020, L500.2500 ####[facility] [address] [place], [address] CA,Total 10.1 mg/dL Normal 8.5-10.1 [facility] Comment on above: Order Comment: 'TROP ' Serial specimen #1, #2 or #3: 1 Performed By: #### L 100.0100, L503.6620, L501.4020, L500.2500 ####[facility] [address] [place], [address] Chloride [Moles/Vol] 99 mmol/L Normal 98-107 [facility] Comment on above: Order Comment: 'TROP ' Serial specimen #1, #2 or #3: 1 Performed By: #### L 100.0100, L503.6620, L501.4020, L500.2500 ####[facility] [address] [place], [address] CO2 [Moles/Vol] 32.0 mmol/L Normal 21.0-32.0 [facility] Comment on above: Order Comment: 'TROP ' Serial specimen #1, #2 or #3: 1 Performed By: #### L 100.0100, L503.6620, L501.4020, L500.2500 ####[facility] [address] [place], [address] Creatinine [Mass/Vol] 0.93 mg/dL Normal 0.55-1.02 [facility] Comment on above: Order Comment: 'TROP ' Serial specimen #1, #2 or #3: 1 Result Comment: The validity of the calculated GFR GFRAA in patients over 70 years has not been determined. Clinical correlation is essential. Performed By: #### L 100.0100, L503.6620, L501.4020, L500.2500 ####[facility] [address] [place], [address] ECRCL 79.75 ml/min Normal [facility] Comment on above: Order Comment: 'TROP ' Serial specimen #1, #2 or #3: 1 Performed By: #### L 100.0100, L503.6620, L501.4020, L500.2500 ####[facility] [address] [place], [address] EST GFR - AA 79 mL/min Normal >60 [facility] Comment on above: Order Comment: 'TROP ' Serial specimen #1, #2 or #3: 1 Result Comment: Afri can [facility] GFR Calc Performed By: #### L 100.0100, L503.6620, L501.4020, L500.2500 ####[facility] [address] [place], [address] GAP 4 Low 5-15 [facility] Comment on above: Order Comment: 'TROP ' Serial specimen #1, #2 or #3: 1 Performed By: #### L 100.0100, L503.6620, L501.4020, L500.2500 ####[facility] [address] [place], [address] GFR/1.73 sq M.predicted among non-blacks MDRD (S/P/Bld) [Vol rate/Area] 65 mL/min/{1.73_m2} Normal >60 [facility] Comment on above: Order Comment: 'TROP ' Serial specimen #1, #2 or #3: 1 Result Comment: Non- GFR Calc Performed By: #### L 100.0100, L503.6620, L501.4020, L500.2500 ####[facility] [address] [place], [address] Glucose [Mass/Vol] 136 mg/dL High 74-106 [facility] Comment on above: Order Comment: 'TROP ' Serial specimen #1, #2 or #3: 1 Result Comment: Fast ing Glucose result greater than or equal to 126 mg/dL suggests DIABETES MELLITUS per A.D.A. criteria. Performed By: #### L 100.0100, L503.6620, L501.4020, L500.2500 ####[facility] [address] [place], [address] Potassium [Moles/Vol] 4.1 mmol/L Normal 3.5-5.1 [facility] Comment on above: Order Comment: 'TROP ' Serial specimen #1, #2 or #3: 1 Performed By: #### L 100.0100, L503.6620, L501.4020, L500.2500 ####[facility] [address] [place], [address] Sodium [Moles/Vol] 134 mmol/L Low 136-145 [facility] Comment on above: Order Comment: 'TROP ' Serial specimen #1, #2 or #3: 1 Performed By: #### L 100.0100, L503.6620, L501.4020, L500.2500 ####[facility] [address] [place], [address] Urea nitrogen [Mass/Vol] 13 mg/dL Normal 7-18 [facility] Comment on above: Order Comment: 'TROP ' Serial specimen #1, #2 or #3: 1 Performed By: #### L 100.0100, L503.6620, L501.4020, L500.2500 ####[facility] [address] [place], [address] Basophil percentageOrdered B y: Alfonzojericho Rahman on 02-16-2024 Basophil percentage 0.5 % 0-1 [facility] Blood urea nitrogen (BUN)/cr eatinine ratioOrdered By: Alfonzo Rahman on 02-16-2024 Blood urea nitrogen (BUN)/creatinine ratio 14.0 RATIO - [facility] CBC W/Diff, Automatedon 02-06-2023 Absolute Lymph 1.27 X10 3/uL Normal 0.83-4.51 [facility] Comment on above: Performed By: #### L 100.0100, L503.6620, L501.4020, L500.2500 ####[facility] [address] [place], [address] Absolute Neut 6.9 X10 3/uL Normal 2.0-7.7 [facility] Comment on above: Performed By: #### L 100.0100, L503.6620, L501.4020, L500.2500 ####[facility] [address] [place], [address] Basophils/100 WBC (Bld) 0.5 % Normal 0-1 [facility] Comment on above: Performed By: #### L 100.0100, L503.6620, L501.4020, L500.2500 ####[facility] [address] [place], [address] Eosinophils/100 WBC (Bld) 3.0 % Normal 0-5 [facility] Comment on above: Performed By: #### L 100.0100, L503.6620, L501.4020, L500.2500 ####[facility] [address] [place], [address] Erythrocyte distribution width (RBC) [Ratio] 12.1 % Normal 11.6-14.6 [facility] Comment on above: Performed By: #### L 100.0100, L503.6620, L501.4020, L500.2500 ####[facility] [address] [place], [address] Hematocrit (Bld) [Volume fraction] 40.8 % Normal 37-47 [facility] Comment on above: Performed By: #### L 100.0100, L503.6620, L501.4020, L500.2500 ####[facility] [address] [place], [address] Hemoglobin (Bld) [Mass/Vol] 13.9 g/dL Normal 12.0-15.0 [facility] Comment on above: Performed By: #### L 100.0100, L503.6620, L501.4020, L500.2500 ####[facility] [address] [place], [address] IG% 0.500 Normal 0.0-0.9 [facility] Comment on above: Result Comment: IG% - Immature Granulocytes (promyelocytes, myelocytes and metamyelocytes) > 1% indicates that a LEFT SHIFT is Present. Performed By: #### L 100.0100, L503.6620, L501.4020, L500.2500 ####[facility] [address] [place], [address] Lymphocytes/100 WBC (Bld) 13.8 % Low 19-41 [facility] Comment on above: Performed By: #### L 100.0100, L503.6620, L501.4020, L500.2500 ####[facility] [address] [place], [address] MCH (RBC) [Entitic mass] 32.1 pg High 27.0-32.0 [facility] Comment on above: Performed By: #### L 100.0100, L503.6620, L501.4020, L500.2500 ####[facility] [address] [place], [address] MCHC (RBC) [Mass/Vol] 34.1 g/dL Normal 32-36 [facility] Comment on above: Performed By: #### L 100.0100, L503.6620, L501.4020, L500.2500 ####[facility] [address] [place], [address] MCV (RBC) [Entitic vol] 94.2 fL Normal 81-99 [facility] Comment on above: Performed By: #### L 100.0100, L503.6620, L501.4020, L500.2500 ####[facility] [address] [place], [address] Monocytes/100 WBC (Bld) 7.9 % Normal 0-10 [facility] Comment on above: Performed By: #### L 100.0100, L503.6620, L501.4020, L500.2500 ####[facility] [address] [place], [address] Neutrophils/100 WBC (Bld) 74.3 % High 47-70 [facility] Comment on above: Performed By: #### L 100.0100, L503.6620, L501.4020, L500.2500 ####[facility] [address] [place], [address] Nucleated RBC (Bld) [#/Vol] 0 10*3/uL Normal 0-5 [facility] Comment on above: Performed By: #### L 100.0100, L503.6620, L501.4020, L500.2500 ####[facility] [address] [place], [address] Platelet mean volume (Bld) [Entitic vol] 11.0 fL Normal 6.2-12.0 [facility] Comment on above: Performed By: #### L 100.0100, L503.6620, L501.4020, L500.2500 ####[facility] [address] [place], [address] Platelets (Bld) [#/Vol] 168 10*3/uL Normal 150-450 [facility] Comment on above: Performed By: #### L 100.0100, L503.6620, L501.4020, L500.2500 ####[facility] [address] [place], [address] RBC (Bld) [#/Vol] 4.33 10*6/uL Normal 4.2-5.4 [facility] Comment on above: Performed By: #### L 100.0100, L503.6620, L501.4020, L500.2500 ####[facility] [address] [place], [address] RDW SD 41.8 fl Normal 35.1-43.9 [facility] Comment on above: Performed By: #### L 100.0100, L503.6620, L501.4020, L500.2500 ####[facility] [address] [place], [address] WBC (Bld) [#/Vol] 9.2 10*3/uL Normal 4.4-11.0 [facility] Comment on above: Performed By: #### L 100.0100, L503.6620, L501.4020, L500.2500 ####[facility] [address] [place], [address] Calcium [Mass/Vol]Ordered By : Alfonzo Rahman on 02-16-2024 Serum or plasma calcium measurement (mass/volume) 10.1 mg/dL 8.5-10.1 [facility] Carbon dioxide measurementOr dered By: Alfonzo Rahman on 02-16-2024 Carbon dioxide measurement 32.0 mmol/L 21.0-32.0 [facility] Chest PA and Lateralon 02-15 Chest PA and Lateral [facility] Imaging Services [address] [place], [place] [address] Chest PA and Lateral MR#: [id number] Acct: [id number] Name: TANVI GARZA Rep #: [id number] : 1960 F 63 From: Lucho reveles MD PCP: Dr. Martin Evans MD Status: REG ER Study: Chest PA and Lateral Date of Exam: 02/16/24 Exam# [id number] Ordering Dr: Alfonzo Rahman DO [id number] STUDY: X-RAY CHEST REASON FOR EXAM: Female, [...] Martin Evans MD; Dr. Alfonzo Rahman DO [employer] Scientist: Signed Normal [facility] Chloride measurementOrdered By: Alfonzo Rahman on 02-16-2024 Chloride measurement 99 mmol/L 98-107 [facility] Creatinine [Mass/Vol]Ordered By: Alfonzo Rahman on 02-16-2024 Serum or plasma creatinine measurement (mass/volume) 0.93 mg/dL 0.55-1.02 [facility] Emergency Department Summary on 02-16-2024 Emergency Department Summary [facility] Medical Records Department [address] [place] [address] Emergency Department Summary 02/16/24 MR#: [id number] Acct: [id number] Name: TANVI GARZA Rep #: [id number] : 1960 63 From: Alfonzo Rahman DO [...] month she is supposed to go to [place] to follow-up with physician to have her [...] naproxen (From (more content not included)... Normal [facility] Eosinophil percentageOrdered By: Alfonzo Rahman on 02-16-2024 Eosinophil percentage 3.0 % 0-5 [facility] Erythrocyte distribution wid th (RBC) [Ratio]Ordered By: Alfonzo Rahman on 02-16-2024 Erythrocyte distribution width ratio 12.1 % 11.6-14.6 [facility] Erythrocyte distribution width standard deviation 41.8 fl 35.1-43.9 [facility] Estimated glomerular filtrat ion rate (GFR) AmericanOrdered By: Alfonzo Rahman on 02-16-2024 Estimated glomerular filtration rate (GFR) 79 mL/min >60 [facility] Estimation of creatinine rasheed aranceOrdered By: Alfonzo Rahman on 02-16-2024 Estimation of creatinine clearance 79.75 ml/min [facility] Glomerular filtration rate ( GFR) estimationOrdered By: Alfonzo Rahman on 02-16-2024 Glomerular filtration rate (GFR) estimation 65 mL/min >60 [facility] Glucose measurementOrdered B y: Alfonzo Rahman on 02-16-2024 Glucose measurement 136 mg/dL High 74-106 [facility] [facility] Hematocrit Auto (Bld) [Volum e fraction]Ordered By: Alfonzo Rahman on 02-16-2024 Automated blood hematocrit (percentage) 40.8 % 37-47 [facility] Hemoglobin measurementOrdere d By: Alfonzo Rahman on 02-16-2024 Hemoglobin measurement 13.9 g/dL 12.0-15.0 [facility] Immature granulocytes/100 WB C Auto (Bld)Ordered By: Alfonzo Rahman on 02-16-2024 Automated immature granulocyte percentage 0.500 % 0.0-0.9 [facility] L501.4020on 02-16-2024 TROPONIN-I HS 8 pg/mL Normal 3.0-54.0 [facility] Comment on above: Order Comment: 'TROP ' Serial specimen #1, #2 or #3: 1 Result Comment: Plea se Note: New Test Units and Gender Specific Reference Ranges. For more information see Policy Stat Procedure [place] High Sensitivity Troponin (TNIH) and attachments. Performed By: #### L 100.0100, L503.6620, L501.4020, L500.2500 ####[facility] [address] [place], [address] Lymphocytes Auto (Unsp spec) [#/Vol]Ordered By: Alfonzo Rahman on 02-16-2024 Absolute lymphocyte count 1.27 X10^3/uL 0.83-4.51 [facility] Lymphocytes/100 WBC Auto (Un sp spec)Ordered By: Alfonzo Rahman on 02-16-2024 Automated lymphocyte count as percentage of total leukocytes 13.8 % Low 19-41 [facility] MCV (RBC) [Entitic vol]Order ed By: Alfonzo Rahman on 02-16-2024 MCV (mean corpuscular volume) determination 94.2 fL 81-99 [facility] Mean corpuscular hemoglobin (MCH) determinationOrdered By: Alfonzo Rahman on 02-16-2024 Mean corpuscular hemoglobin (MCH) determination 32.1 pg High 27.0-32.0 [facility] Mean corpuscular hemoglobin concentration (MCHC) determinationOrdered By: Alfonzo Rahman on 02-16-2024 Mean corpuscular hemoglobin concentration (MCHC) determination 34.1 g/dL 32-36 [facility] Mean platelet volume determi nationOrdered By: Alfonzo Rahman on 02-16-2024 Mean platelet volume determination 11.0 fl 6.2-12.0 [facility] Monocyte percentageOrdered B y: Alfonzo Rahman on 02-16-2024 Monocyte percentage 7.9 % 0-10 [facility] Neutrophil percentageOrdered By: Alfonzo Rahman on 02-16-2024 Neutrophil percentage 74.3 % High 47-70 [facility] Nucleated red blood cell per centageOrdered By: Alfonzo Rahman on 02-16-2024 Nucleated red blood cell percentage 0 % 0-5 [facility] Platelet countOrdered By: Mg Rahman on 02-16-2024 Platelet count 168 K/mm3 150-450 [facility] Potassium measurementOrdered By: Alfonzo Rahman on 02-16-2024 Potassium measurement 4.1 mmol/L 3.5-5.1 [facility] RBC Auto (Bld) [#/Vol]Ordere d By: Alfonzo Rahman on 02-16-2024 Automated blood erythrocyte count 4.33 M/mm3 4.2-5.4 [facility] Serum anion gap measurementO rdered By: Alfonzo Rahman on 02-16-2024 Serum anion gap measurement 4 Low 5-15 [facility] Sodium levelOrdered By: Sheila Rahman on 02-16-2024 Sodium level 134 mmol/L Low 136-145 [facility] Troponin IOrdered By: Alfonzo Rahman on 02-16-2024 Troponin I 8 pg/mL 3.0-54.0 [facility] Urea nitrogen [Mass/Vol]Orde red By: Alfonzo Rahman on 02-16-2024 Serum or plasma urea nitrogen measurement (mass/volume) 13 mg/dL 7-18 [facility] White blood cell (WBC) count Ordered By: Alfonzo Rahman on 02-16-2024 White blood cell (WBC) count 9.2 K/mm3 4.4-11.0 [facility] Cardiology Visit Reporton Cardiology Visit Report [facility] [address] [place] [address] OFFICE VISIT Date of Service: 01/27/24 MR#: [id number] Acct: [id number] Name: TANVI GARZA Rep #: [id number] : 1960 Provider: CELINE roy Age/Sex: 63/F Location: [facility] Status: Signed with Addenda ADDENDUM by [...] NIBP Intake Visit Reasons: F/U PER JHR Ui Ux Developer Required: No Is patient in pain?: No [...] (241.3 mg (more content not included)... Normal [facility] Pacemaker Checkon 01-27-2024 Pacemaker Check [facility] [address] [place] [address] Pacemaker Check Date of Service: 01/27/24 1659 MR#: [id number] Acct: [id number] Name: TANVI GARZA Rep #: [id number] : 1960 From: Aliyah Aguilar Age/Sex: 63/F Location: [place] Status: Signed Billing Codes ICD Device Billin [...] (implantable) cardiac defibrillator 01/27/24 1700 Date Aliyah Gannondodie Signature: Date (if applicable) CC: Normal [facility] BNP,B-Type NATRIURETIC PEPTI Deondre 01-12-2024 Natriuretic peptide B (Bld) [Mass/Vol] 39.3 pg/mL Normal 0-100 [facility] Comment on above: Performed By: #### L 500.2500, L503.6520, L501.9520, L100.0100, L501.5200 ####[facility] [address] [place], [address] Basic Metabolic Profile (BMP )on 01-12-2024 BUN/CRE 15.3 RATIO Normal 10-20 [facility] Comment on above: Performed By: #### L 500.2500, L503.6620, L501.9520, L100.0100, L501.5200 ####[facility] [address] [place], [address] CA,Total 9.3 mg/dL Normal 8.5-10.1 [facility] Comment on above: Performed By: #### L 500.2500, L503.6620, L501.9520, L100.0100, L501.5200 ####[facility] [address] [place], [address] Chloride [Moles/Vol] 98 mmol/L Normal 98-107 [facility] Comment on above: Performed By: #### L 500.2500, L503.6620, L501.9520, L100.0100, L501.5200 ####[facility] [address] [place], [address] CO2 [Moles/Vol] 32.0 mmol/L Normal 21.0-32.0 [facility] Comment on above: Performed By: #### L 500.2500, L503.6620, L501.9520, L100.0100, L501.5200 ####[facility] [address] [place], [address] Creatinine [Mass/Vol] 0.98 mg/dL Normal 0.55-1.02 [facility] Comment on above: Result Comment: The validity of the calculated GFR GFRAA in patients over 70 years has not been determined. Clinical correlation is essential. Performed By: #### L 500.2500, L503.6620, L501.9520, L100.0100, L501.5200 ####[facility] [address] [place], [address] EST GFR - AA 74 mL/min Normal >60 [facility] Comment on above: Result Comment: Afri can [facility] GFR Calc Performed By: #### L 500.2500, L503.6620, L501.9520, L100.0100, L501.5200 ####[facility] [address] [place], [address] GAP 5 Normal 5-15 [facility] Comment on above: Performed By: #### L 500.2500, L503.6620, L501.9520, L100.0100, L501.5200 ####[facility] [address] [place], [address] GFR/1.73 sq M.predicted among non-blacks MDRD (S/P/Bld) [Vol rate/Area] 61 mL/min/{1.73_m2} Normal >60 [facility] Comment on above: Result Comment: Non- GFR Calc Performed By: #### L 500.2500, L503.6620, L501.9520, L100.0100, L501.5200 ####[facility] [address] [place], [address] Glucose [Mass/Vol] 128 mg/dL High 74-106 [facility] Comment on above: Result Comment: Fast ing Glucose result greater than or equal to 126 mg/dL suggests DIABETES MELLITUS per A.D.A. criteria. Performed By: #### L 500.2500, L503.6620, L501.9520, L100.0100, L501.5200 ####[facility] [address] [place], [address] Potassium [Moles/Vol] 3.8 mmol/L Normal 3.5-5.1 [facility] Comment on above: Performed By: #### L 500.2500, L503.6620, L501.9520, L100.0100, L501.5200 ####[facility] [address] [place], [address] Sodium [Moles/Vol] 135 mmol/L Low 136-145 [facility] Comment on above: Performed By: #### L 500.2500, L503.6620, L501.9520, L100.0100, L501.5200 ####[facility] [address] [place], [address] Urea nitrogen [Mass/Vol] 15 mg/dL Normal 7-18 [facility] Comment on above: Performed By: #### L 500.2500, L503.6620, L501.9520, L100.0100, L501.5200 ####[facility] [address] [place], [address] CBC W/Diff, Automatedon 11-0 5-2023 Absolute Lymph 1.70 X10 3/uL Normal 0.83-4.51 [facility] Comment on above: Performed By: #### L 500.2500, L503.6620, L501.9520, L100.0100, L501.5200 ####[facility] [address] [place], [address] Absolute Neut 5.7 X10 3/uL Normal 2.0-7.7 [facility] Comment on above: Performed By: #### L 500.2500, L503.6620, L501.9520, L100.0100, L501.5200 ####[facility] [address] [place], [address] Basophils/100 WBC (Bld) 0.7 % Normal 0-1 [facility] Comment on above: Performed By: #### L 500.2500, L503.6620, L501.9520, L100.0100, L501.5200 ####[facility] [address] [place], [address] Eosinophils/100 WBC (Bld) 3.4 % Normal 0-5 [facility] Comment on above: Performed By: #### L 500.2500, L503.6620, L501.9520, L100.0100, L501.5200 ####[facility] [address] [place], [address] Erythrocyte distribution width (RBC) [Ratio] 12.1 % Normal 11.6-14.6 [facility] Comment on above: Performed By: #### L 500.2500, L503.6620, L501.9520, L100.0100, L501.5200 ####[facility] [address] [place], [address] Hematocrit (Bld) [Volume fraction] 43.8 % Normal 37-47 [facility] Comment on above: Performed By: #### L 500.2500, L503.6620, L501.9520, L100.0100, L501.5200 ####[facility] [address] [place], [address] Hemoglobin (Bld) [Mass/Vol] 14.7 g/dL Normal 12.0-15.0 [facility] Comment on above: Performed By: #### L 500.2500, L503.6620, L501.9520, L100.0100, L501.5200 ####[facility] [address] [place], [address] IG% 0.600 Normal 0.0-0.9 [facility] Comment on above: Result Comment: IG% - Immature Granulocytes (promyelocytes, myelocytes and metamyelocytes) > 1% indicates that a LEFT SHIFT is Present. Performed By: #### L 500.2500, L503.6620, L501.9520, L100.0100, L501.5200 ####[facility] [address] [place], [address] Lymphocytes/100 WBC (Bld) 19.9 % Normal 19-41 [facility] Comment on above: Performed By: #### L 500.2500, L503.6620, L501.9520, L100.0100, L501.5200 ####[facility] [address] [place], [address] MCH (RBC) [Entitic mass] 31.7 pg Normal 27.0-32.0 [facility] Comment on above: Performed By: #### L 500.2500, L503.6620, L501.9520, L100.0100, L501.5200 ####[facility] [address] [place], [address] MCHC (RBC) [Mass/Vol] 33.6 g/dL Normal 32-36 [facility] Comment on above: Performed By: #### L 500.2500, L503.6620, L501.9520, L100.0100, L501.5200 ####[facility] [address] [place], [address] MCV (RBC) [Entitic vol] 94.4 fL Normal 81-99 [facility] Comment on above: Performed By: #### L 500.2500, L503.6620, L501.9520, L100.0100, L501.5200 ####[facility] [address] [place], [address] Monocytes/100 WBC (Bld) 8.4 % Normal 0-10 [facility] Comment on above: Performed By: #### L 500.2500, L503.6620, L501.9520, L100.0100, L501.5200 ####[facility] [address] [place], [address] Neutrophils/100 WBC (Bld) 67.0 % Normal 47-70 [facility] Comment on above: Performed By: #### L 500.2500, L503.6620, L501.9520, L100.0100, L501.5200 ####[facility] [address] [place], [address] Nucleated RBC (Bld) [#/Vol] 0 10*3/uL Normal 0-5 [facility] Comment on above: Performed By: #### L 500.2500, L503.6620, L501.9520, L100.0100, L501.5200 ####[facility] [address] [place], [address] Platelet mean volume (Bld) [Entitic vol] 12.3 fL High 6.2-12.0 [facility] Comment on above: Performed By: #### L 500.2500, L503.6620, L501.9520, L100.0100, L501.5200 ####[facility] [address] [place], [address] Platelets (Bld) [#/Vol] 189 10*3/uL Normal 150-450 [facility] Comment on above: Performed By: #### L 500.2500, L503.6620, L501.9520, L100.0100, L501.5200 ####[facility] [address] [place], [address] RBC (Bld) [#/Vol] 4.64 10*6/uL Normal 4.2-5.4 [facility] Comment on above: Performed By: #### L 500.2500, L503.6620, L501.9520, L100.0100, L501.5200 ####[facility] [address] [place], [address] RDW SD 42.3 fl Normal 35.1-43.9 [facility] Comment on above: Performed By: #### L 500.2500, L503.6620, L501.9520, L100.0100, L501.5200 ####[facility] [address] [place], [address] WBC (Bld) [#/Vol] 8.5 10*3/uL Normal 4.4-11.0 [facility] Comment on above: Performed By: #### L 500.2500, L503.6620, L501.9520, L100.0100, L501.5200 ####[facility] [address] [place], [address] Magnesiumon 01-12-2024 Magnesium [Mass/Vol] 1.1 mg/dL Low 1.6-2.6 [facility] Comment on above: Performed By: #### L 500.2500, L503.6620, L501.9520, L100.0100, L501.5200 ####[facility] [address] [place], [address] Thyroid Stim Hormone (TSH)on 01-12-2024 TSH 1.340 uIU/mL Normal 0.358-3.740 [facility] Comment on above: Performed By: #### L 500.2500, L503.6620, L501.9520, L100.0100, L501.5200 ####[facility] [address] [place], [address] Stress Reporton 12-15-2023 Stress Report [facility] [address] [place] [address] MR#: [id number] Acct: [id number] Name: TANVI GARZA Rep #: [id number] : 1960 63 From: Stewart Diane MD Primary Care: Dr. 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 [address] [place] [address] Echo Complete 12/04/23 0514 MR#: [id number] Acct: [id number] Name: TANVI GARZA Rep #: [id number] : 1960 63 From: Stewart Diane MD Attending Dr: Dr. Stewart Diane MD Status: STAN RODRIGUEZ Ordering Dr: Stewart Diane MD Date: 12/04/23 Location: [facility] Sex: F C Admitted: Reason [...] MD; Dr. Martin Evans MD Date Dictated: 12/04/23 0514 Date Transcribed: 12/04/23 115 Crop Nutrition Scientist: Signed Normal [facility] Pacemaker Checkon 11-18-2023 Pacemaker Check [facility] [address] [place], [place] [address] Pacemaker Check Date of Service: 11/18/231810 MR#: [id number] Acct: [id number] Name: TANVI GARZA Rep #: [id number] : 1960 From: Aliyah Aguilar Age/Sex: 62/F Location: [place] Status: Signed Billing Codes ICD Device Billin ICD Dev Prog Eval, Multi Assessment and Plan Assessment and Plan (1) Nonischemic cardiomyopathy: Status: Chronic (2) Presence of biventricular implantable cardioverter-defibril lator (ICD): Status: Chronic Comment: 09/19/2008 (3) Chronic systolic (congestive) heart failure: Status: Chronic 11/18/231814 Date Aliyah Aguilar Rebeca Signature: Date (if applicable) CC: Normal [facility] Comprehensive Metabolic Prof coon 11-16-2023 Albumin [Mass/Vol] 4.4 g/dL Normal 3.2-5.0 [facility] Comment on above: Performed By: #### L 500.1800 #### [facility] [address] [place], [place], [address] Albumin/Globulin [Mass ratio] 1.0 {ratio} Normal 0.9-2.4 [facility] Comment on above: Performed By: #### L 500.6730 #### [facility] [address] [place], [place], [address] ALK P 159 U/L High 45-117 [facility] Comment on above: Performed By: #### L 500.8330 #### [facility] [address] [place], [address] ALT [Catalytic activity/Vol] 44 U/L Normal 13-56 [facility] Comment on above: Performed By: #### L 500.4050 #### [facility] [address] [place], [address] AST [Catalytic activity/Vol] 44 U/L High 15-37 [facility] Comment on above: Performed By: #### L 500.4050 #### [facility] [address] [place], [address] Bilirubin [Mass/Vol] 1.20 mg/dL High 0.20-1.00 [facility] Comment on above: Result Comment: For patients on eltrombopag therapy, use of Dimension [place] TBIL is not recommended. Performed By: #### L 500.4050 #### [facility] [address] [place], [address] BUN/CRE 21.6 RATIO High 10-20 [facility] Comment on above: Performed By: #### L 500.4050 #### [facility] [address] [place], [address] CA,Total 10.3 mg/dL High 8.5-10.1 [facility] Comment on above: Performed By: #### L 500.4050 #### [facility] [address] [place], [address] Chloride [Moles/Vol] 97 mmol/L Low 98-107 [facility] Comment on above: Performed By: #### L 500.4050 #### [facility] [address] [place], [address] CO2 [Moles/Vol] 32.0 mmol/L Normal 21.0-32.0 [facility] Comment on above: Performed By: #### L 500.4050 #### [facility] [address] [place], [address] Creatinine [Mass/Vol] 0.93 mg/dL Normal 0.55-1.02 [facility] Comment on above: Result Comment: The validity of the calculated GFR GFRAA in patients over 70 years has not been determined. Clinical correlation is essential. Performed By: #### L 500.4050 #### [facility] [address] [place], [address] EST GFR - AA 79 mL/min Normal >60 [facility] Comment on above: Result Comment: Afri can [facility] GFR Calc Performed By: #### L 500.4050 #### [facility] [address] [place], [address] GAP 6 Normal 5-15 [facility] Comment on above: Performed By: #### L 500.4050 #### [facility] [address] [place], [address] GFR/1.73 sq M.predicted among non-blacks MDRD (S/P/Bld) [Vol rate/Area] 65 mL/min/{1.73_m2} Normal >60 [facility] Comment on above: Result Comment: Non- GFR Calc Performed By: #### L 500.4050 #### [facility] [address] [place], [address] Globulin (S) [Mass/Vol] 4.5 g/dL High 2.2-4.2 [facility] Comment on above: Performed By: #### L 500.4050 #### [facility] [address] [place], [address] Glucose [Mass/Vol] 124 mg/dL High 74-106 [facility] Comment on above: Result Comment: Fast ing Glucose result from 100 to 125 mg/dL suggests IMPAIRED HOMEOSTASIS per A.D.A. criteria. Performed By: #### L 500.4050 #### [facility] [address] [place], [address] Potassium [Moles/Vol] 4.3 mmol/L Normal 3.5-5.1 [facility] Comment on above: Performed By: #### L 500.4050 #### [facility] [address] [place], [address] Sodium [Moles/Vol] 135 mmol/L Low 136-145 [facility] Comment on above: Performed By: #### L 500.4050 #### [facility] [address] [place], [address] T PROT 8.9 g/dL High 6.4-8.2 [facility] Comment on above: Performed By: #### L 500.4050 #### [facility] [address] [place], [address] Urea nitrogen [Mass/Vol] 20 mg/dL High 7-18 [facility] Comment on above: Performed By: #### L 500.4050 #### [facility] [address] [place], [address] Internal Medicine Office Vis diann 11-16-2023 Internal Medicine Office Visit [facility] [address] [place] [address] OFFICE VISIT Date of Service: 11/16/23 MR#: [id number] Acct: [id number] Name: NICK GARZAMANJULA Hwang Rep #: [id number] : 1960 Provider: Dr. Martin oreilly MD Age/Sex: 62/F Location: [facility] Status: Signed Intake Vital Signs 08/17/23 08:40 [...] M FU Chief Complaint: 3 M FU Ui Ux Developer Required: No Is patient in pain?: No [...] has had 3 boughts of loose stools. [facility] Medical History Hypercalcemia Vertigo Chronic diarrhea [...] (cerebral vasc (more content not included)... Normal [facility] Basophil percentageOrdered B y: Martin Evans on 05-15-2023 Chloride [Moles/Vol] 98 mmol/L 98-107 [facility] Glucose [Mass/Vol] 117 mg/dL 74-106 [facility] Comment on above: Fasting Glucose resu lt from 100 to 125 mg/dL suggests IMPAIRED HOMEOSTASIS per A.D.A. criteria. Potassium [Moles/Vol] 4.1 mmol/L 3.5-5.1 [facility] Sodium [Moles/Vol] 138 mmol/L 136-145 [facility] Laboratory - Chemistry and C hemistry - challengeOrdered By: Martin Evans on 05-15-2023 CO2 [Moles/Vol] 34.0 mmol/L 21.0-32.0 [facility] Magnesium [Mass/Vol] 1.7 mg/dL 1.6-2.6 [facility] Urea nitrogen/Creatinine [Mass ratio] 16.4 mg/mg 10-20 [facility] - Hematology and Cell countson 05-15-2023 HbA1c (Bld) [Mass fraction] 6.3 % 4.2-6.3 [facility] No Panel InformationOrdered By: Martin Evans on 05-15-2023 Estimated GFR (MDRD) Amer 80 mL/min >60 [facility] Comment on above: GFR Calc Estimated GFR (MDRD) Non-Af Amer 66 mL/min >60 [facility] Comment on above: Non- GFR Calc Parathyroid Hormone (Intact) 35.8 pg/mL 18.4-80.1 [facility] Serum or plasma calcium omero urement (mass/volume)Ordered By: Martin Evans on 05-15-2023 Calcium [Mass/Vol] 10.3 mg/dL 8.5-10.1 [facility] Serum or plasma creatinine m easurement (mass/volume)Ordered By: Martin Evans on 05-15-2023 Creatinine [Mass/Vol] 0.91 mg/dL 0.55-1.02 [facility] Comment on above: The validity of the calculated GFR & GFRAA in patients over 70 years has not been determined. Clinical correlation is essential. Serum or plasma urea nitroge n measurement (mass/volume)Ordered By: Martin Evans on 05-15-2023 Urea nitrogen [Mass/Vol] 15 mg/dL 7-18 [facility] Thin prep Papanicolaou smear with manual screeningOrdered By: Martin Evans on 05-15-2023 Thin prep Papanicolaou smear with manual screening 6 5-15 [facility] Cervical or vaginal specimen microscopic examination by liquid based cytology (reportOrdered By: Joanie Glover on 04-14-2023 Cytology report Cyto stain.thin prep Doc (Cvx/Vag) Comment . [facility] Comment on above: Criteria not met, HP V Genotype not performed.Performed at: [facility] Cyto [id number] [place], [place] [id number] Director: Suhail Medel MD, Phone: [phone] at: [address] [id number] Director: Kaylene Alicea MD, Phone: [phone] at: =[facility] [id number] Director: Kaylene Alicea MD, Phone: [phone] Cervical or vagninal specime n microscopic examination by cytology stain (reported asOrdered By: Joanie Glover on 04-14-2023 Cytology report Cyto stain Doc (Cvx/Vag) Comment . [facility] Comment on above: The Pap smear is [...] DNA Probe+sig amp Ql (Cvx) Negative Negative [facility] Comment on above: This nucleic acid am plification test detects fourteen high-risk HPV types (16,18,31,33,35,39,45,51,52,56,58,59,66,68)without differentiation. Laboratory - CytologyOrdered By: Joanie Glover on 04-14-2023 Hotel Staff Member Cyto stain Nom (Cvx/Vag) [ID] Comment . [facility] Comment on above: Rupa Zamora Cytote chnologist (ASCP) Laboratory - Miscellaneous t estsOrdered By: Joanie Glover on 04-14-2023 Service comment (Unsp spec) [Interp] . . [facility] Thin prep Papanicolaou smear with manual screeningOrdered By: Joanie Glover on 04-14-2023 Thin prep Papanicolaou smear with manual screening Comment . [facility] Comment on above: NEGATIVE FOR INTRAEP ITHELIAL LESION OR MALIGNANCY. This liquid based Th inPrep(R) pap test was screened withthe use of an image guided system. Absolute lymphocyte countOrd ered By: Martin Evans on 02-04-2023 Lymphocytes Auto (Unsp spec) [#/Vol] 2.11 10*3/uL 0.83-4.51 [facility] Basophil percentageOrdered B y: Martin Evans on 02-04-2023 Basophils/100 WBC (Bld) 0.9 % 0-1 [facility] Chloride [Moles/Vol] 98 mmol/L 98-[facility] Eosin[facility]/100 WBC (Bld) 4.9 % 0-5 [facility] Glucose [Mass/Vol] 115 mg/dL 74-106 [facility] Comment on above: Fasting Glucose resu lt from 100 to 125 mg/dL suggests IMPAIRED HOMEOSTASIS per A.D.A. criteria. Neutrophils (Bld) [#/Vol] 6.2 10*3/uL 2.0-7.7 [facility] Neutrophils/100 WBC (Bld) 65.5 % 47-70 [facility] Potassium [Moles/Vol] 4.2 mmol/L 3.5-5.1 [facility] Sodium [Moles/Vol] 138 mmol/L 136-145 [facility] WBC (Bld) [#/Vol] 9.5 10*3/uL 4.4-11.0 [facility] Basophil percentageOrdered B y: Linn Benedicto on 02-04-2023 Bilirubin [Mass/Vol] 1.00 mg/dL 0.20-1.00 [facility] Comment on above: For patients on eltr ombopag therapy, use of Dimension [place] TBIL is not recommended. Cholesterol [Mass/Vol] 135 mg/dL <200 [facility] Comment on above: <200 mg/dL Desirable 200-240 mg/dL Borderline >240 mg/dL High Risk Protein [Mass/Vol] 8.5 g/dL 6.4-8.2 [facility] Triglyceride [Mass/Vol] 90 mg/dL <199 [facility] Comment on above: The drugs N-Acetylcy steine and Metamizole may falsely depress this assay.Serum Triglycerides Reference Interval Normal <150 mg/dL Borderline high 150 - 199 mg/dL High 200 - 499 mg/dL Very High > or = 500 mg/dL Blood erythrocytes count (nu mber/volume)Ordered By: Martin Evans on 02-04-2023 RBC (Bld) [#/Vol] 4.65 10*6/uL 4.2-5.4 [facility] Blood hemoglobin measurement (mass/volume)Ordered By: Martin Evans on 02-04-2023 Hemoglobin (Bld) [Mass/Vol] 14.7 g/dL 12.0-15.0 [facility] Blood lymphocytes/100 leukoc ytesOrdered By: Martin Evans on 02-04-2023 Lymphocytes/100 WBC (Bld) 22.1 % 19-41 [facility] Blood monocytes/100 leukocyt esOrdered By: Martin Evans on 02-04-2023 Monocytes/100 WBC (Bld) 6.3 % 0-10 [facility] Blood platelet mean volumeOr dered By: Martin Evans on 02-04-2023 Platelet mean volume (Bld) [Entitic vol] 11.9 fL 6.2-12.0 [facility] Determination of erythrocyte mean corpuscular volume (MCV)Ordered By: Martin Evans on 02-04-2023 MCV (RBC) [Entitic vol] 97.4 fL 81-99 [facility] Direct bilirubinOrdered By: Stewart Diane on 02-04-2023 Bilirubin.direct [Mass/Vol] 0.28 mg/dL 0.00-0.30 [facility] Hematocrit Auto (Bld) [Volum e fraction]Ordered By: Martin Evans on 02-04-2023 Hematocrit (Bld) [Volume fraction] 45.3 % 37-47 [facility] Laboratory - Chemistry and C hemistry - challengeOrdered By: Stewart Diane on 02-04-2023 ALP [Catalytic activity/Vol] 123 U/L 45-117 [facility] ALT [Catalytic activity/Vol] 32 U/L 13-56 [facility] Globulin (S) [Mass/Vol] 4.3 g/dL 2.2-4.2 [facility] Laboratory - Chemistry and C hemistry - challengeOrdered By: Martin Evans on 02-04-2023 CO2 [Moles/Vol] 33.0 mmol/L 21.0-32.0 [facility] Magnesium [Mass/Vol] 1.9 mg/dL 1.6-2.6 [facility] Urea nitrogen/Creatinine [Mass ratio] 20.5 mg/mg 10-20 [facility] Laboratory - Hematology and Cell countsOrdered By: Martin Evans on 02-04-2023 Erythrocyte distribution width (RBC) [Entitic vol] 44.5 fL 35.1-43.9 [facility] Erythrocyte distribution width (RBC) [Ratio] 12.5 % 11.6-14.6 [facility] Immature granulocytes/100 WBC (Bld) 0.300 % 0.0-0.9 [facility] Comment on above: IG% - Immature Granu locytes (promyelocytes, myelocytes and metamyelocytes) > 1% indicates that a LEFT SHIFT is Present. MCH (RBC) [Entitic mass] 31.6 pg 27.0-32.0 [facility] Nucleated RBC/100 WBC (Bld) [Ratio] 0 % 0-5 [facility] Laboratory - Hematology and Cell countson 02-04-2023 HbA1c (Bld) [Mass fraction] 6.1 % 4.2-6.3 [facility] MCHC Auto (RBC) [Mass/Vol]Or dered By: Martin Evans on 02-04-2023 MCHC (RBC) [Mass/Vol] 32.5 g/dL 32-36 [facility] No Panel InformationOrdered By: Martin Evans on 02-04-2023 Estimated GFR (MDRD) Amer 79 mL/min >60 [facility] Comment on above: GFR Calc Estimated GFR (MDRD) Non-Af Amer 65 mL/min >60 [facility] Comment on above: Non- GFR Calc Platelets bldOrdered By: Michael Evans on 02-04-2023 Platelets (Bld) [#/Vol] 197 10*3/uL 150-450 [facility] Serum or plasma albumin omero urement (mass/volume)Ordered By: Stewart Diane on 02-04-2023 Albumin [Mass/Vol] 4.2 g/dL 3.2-5.0 [facility] Serum or plasma calcium omero urement (mass/volume)Ordered By: Martin Evans on 02-04-2023 Calcium [Mass/Vol] 9.4 mg/dL 8.5-10.1 [facility] Serum or plasma cholesterol in HDL measurement (mass/volume)Ordered By: Stewart Diane on 02-04-2023 Cholesterol in HDL [Mass/Vol] 59 mg/dL >40 [facility] Comment on above: The drugs N-Acetylcy steine and Metamizole may falsely depress this assay. Reference Range HDL <40 mg/dL Low HDL Cholesterol HDL >or= 60 mg/dL High HDL Cholesterol Serum or plasma cholesterol in VLDL measurement (mass/volume)Ordered By: Stewart Diane on 02-04-2023 Cholesterol in VLDL [Mass/Vol] 18 mg/dL 5-40 [facility] Serum or plasma creatinine m easurement (mass/volume)Ordered By: Martin Evans on 02-04-2023 Creatinine [Mass/Vol] 0.93 mg/dL 0.55-1.02 [facility] Comment on above: The validity of the calculated GFR & GFRAA in patients over 70 years has not been determined. Clinical correlation is essential. Serum or plasma low density lipoprotein (LDL) cholesterol measurement (mass/volume)Ordered By: Stewart Diane on 02-04-2023 Cholesterol in LDL [Mass/Vol] 58 mg/dL 0-130 [facility] Serum or plasma urea nitroge n measurement (mass/volume)Ordered By: Martin Evans on 02-04-2023 Urea nitrogen [Mass/Vol] 19 mg/dL 7-18 [facility] Thin prep Papanicolaou smear with manual screeningOrdered By: Stewart Diane on 02-04-2023 Thin prep Papanicolaou smear with manual screening 38 U/L 15-37 [facility] Thin prep Papanicolaou smear with manual screeningOrdered By: Martin Evans on 02-04-2023 Thin prep Papanicolaou smear with manual screening 7 5-15 [facility] Laboratory - Hematology and Cell countson 10-31-2022 HbA1c (Bld) [Mass fraction] 6.3 % 4.2-6.3 [facility] Laboratory - Chemistry and C hemistry - challengeon 01-24-2022 Magnesium [Mass/Vol] 2.0 mg/dL 1.6-2.6 [facility] Work Phone: Basophil percentageon 2021 Chloride [Moles/Vol] 99 mmol/L 98-107 [facility] Work Phone: Glucose [Mass/Vol] 113 mg/dL 74-106 [facility] Work Phone: Comment on above: Fasting Glucose resu lt from 100 to 125 mg/dL suggests IMPAIRED HOMEOSTASIS per A.D.A. criteria. Potassium [Moles/Vol] 4.1 mmol/L 3.5-5.1 [facility] Work Phone: Sodium [Moles/Vol] 135 mmol/L 136-145 [facility] Work Phone: Laboratory - Chemistry and C hemistry - challengeon 01-09-2022 CO2 [Moles/Vol] 29.0 mmol/L 21.0-32.0 [facility] Work Phone: Magnesium [Mass/Vol] 1.2 mg/dL 1.6-2.6 [facility] Work Phone: Urea nitrogen/Creatinine [Mass ratio] 17.7 mg/mg 10-20 [facility] Work Phone: [phone] Laboratory - Hematology and Cell countson 01-09-2022 HbA1c (Bld) [Mass fraction] 6.3 % 4.2-6.3 [facility] Work Phone: No Panel Informationon 01-09 Estimated GFR (MDRD) Amer 57 mL/min >60 [facility] Work Phone: Comment on above: GFR Calc Estimated GFR (MDRD) Non-Af Amer 47 mL/min >60 [facility] Work Phone: Comment on above: Non- GFR Calc Serum or plasma calcium omero urement (mass/volume)on 01-09-2022 Calcium [Mass/Vol] 9.3 mg/dL 8.5-10.1 [facility] Work Phone: [phone] Serum or plasma creatinine m easurement (mass/volume)on 01-09-2022 Creatinine [Mass/Vol] 1.24 mg/dL 0.55-1.02 [facility] Work Phone: Comment on above: The validity of the calculated GFR & GFRAA in patients over 70 years has not been determined. Clinical correlation is essential. Serum or plasma urea nitroge n measurement (mass/volume)on 01-09-2022 Urea nitrogen [Mass/Vol] 22 mg/dL 7-18 [facility] Work Phone: Thin prep Papanicolaou smear with manual screeningon 01-09-2022 Thin prep Papanicolaou smear with manual screening 7 5-15 [facility] Work Phone: Final Surgical Pathology Rep kelly 12-30-2021 Final Surgical Pathology Report . Pathology Reports Accession: Collected Date/Time: Received Date/Time: Pathologist: [id number] 12/23/2021 09:20 EDT 12/23/2021 11:01 EDT MD [...] formalin, labeled with the patients name, Case #[id number], and posterior vulva stitch 12:00 is a [...] Reports Accession: Collected Date/Time: Received Date/Time: Pathologist: [id number] 12/23/2021 09:20 EDT 12/23/2021 11:01 EDT MD AUTUMN GODOY GROSS DESCRIPTION: B. Received in formalin labeled left posterior vulva is a unoriented emanuel-white fragment of posterior vulva measuring 0.8 x 0.6 x 0.3 cm. Possible excision margin inked black. TS -1, bisected. Dictated by TEDDY SEN MICROSCOPIC DESCRIPTION: Slides reviewed. Electronically Signed by Pathology Report verified by [facility] AUTUMN GODOY MD Sign out Date: 12/30/2021 17:25 Performing Lab: [address] Pathology Dept [facility] [place] ABO/Rh (Gel)on 12-23-2021 ABO/Rh Interp Positive Invalid Interpretation Code [facility] [place] Comment on above: Performed By: #### A PRAVEEN PRABHAKAR #### [place] [address] ABS (Gel)on 12-23-2021 ABSC Interp (Gel) Negative Normal [facility]) Comment on above: Performed By: #### A CAROLE PRABHAKARGEL #### [place] [address] XR CHEST 2 VIEWSon 2 XR CHEST [...] Date: 12/09/2021 10:54:14 PM Ordering Provider: CHAR Renee [facility] [place] .Auto Diffon 12-09-2021 Basophil, Absolute 0.1 10 3/mcL Normal 0.0-0.3 [facility] ([place] Comment on above: Performed By: #### C MP, ABSGEL, GFR, ABOGEL #### [address] [address] Basophils/100 WBC (Bld) 0.7 % Normal 0.0-2.5 [facility] ([place] Comment on above: Performed By: #### C MP, ABSGEL, GFR, ABOGEL #### [address] [address] Eosinophil, Absolute 0.2 10 3/mcL Normal 0.0-0.7 [facility] ([place] Comment on above: Performed By: #### C MP, ABSGEL, GFR, ABOGEL #### [address] [address] Eosinophils/100 WBC (Bld) 2.2 % Normal 0.0-6.0 [facility] [place] Comment on above: Performed By: #### C MP, ABSGEL, GFR, ABOGEL #### [address] [address] Lymphocyte, Absolute 1.3 10 3/mcL Normal 0.9-4.3 [facility] ([place] Comment on above: Performed By: #### C MP, ABSGEL, GFR, ABOGEL #### [address] [address] Lymphocytes/100 WBC (Bld) 11.9 % Low 20.0-40.0 [facility] [place] Comment on above: Performed By: #### C MP, ABSGEL, GFR, ABOGEL #### [place] [id number] [place] [address] Monocyte, Absolute 0.7 10 3/mcL Normal 0.1-1.4 [facility] ([place] Comment on above: Performed By: #### C MP, ABSGEL, GFR, ABOGEL #### [address] [address] Monocytes/100 WBC (Bld) 6.1 % Normal 2.0-13.0 [facility] ([place] Comment on above: Performed By: #### C MP, ABSGEL, GFR, ABOGEL #### [address] [address] Neutrophils/100 WBC (Bld) 79.1 % High 50.0-75.0 [facility] [place] Comment on above: Performed By: #### C MP, ABSGEL, GFR, ABOGEL #### [address] [address] .GFRon 12-09-2021 GFR Non- 54 ml/min/1.73sqm Normal [facility] [place] Comment on above: Result Comment: GFR Population [...] #### C MP, ABSGEL, GFR, ABOGEL #### [address] [address] GFR >60 Normal [facility] ([place] Comment on above: Result Comment: GFR Population [...] #### C MP, ABSGEL, GFR, ABOGEL #### [address] [address] .NEUABSon 12-09-2021 Neutrophil, Absolute 8.9 10 3/mcL High 2.3-8.1 [facility] ([place] Comment on above: Performed By: #### C MP, ABSGEL, GFR, ABOGEL #### [address] [address] ABO/Rh (Gel)on 12-09-2021 ABO/Rh Interp Positive Invalid Interpretation Code [facility] [place] Comment on above: Performed By: #### C MP, ABSGEL, GFR, ABOGEL #### [place] [id number] ABS (Gel)on 12-09-2021 ABSC Interp (Gel) Negative Normal [facility] [place] Comment on above: Performed By: #### C MP, ABSGEL, GFR, ABOGEL #### [address] [address] CBCon 12-09-2021 Erythrocyte distribution width (RBC) [Ratio] 13.0 % Normal 11.5-15.5 [facility] [place] Comment on above: Performed By: #### C MP, ABSGEL, GFR, ABOGEL #### [address] [address] Hematocrit (Bld) [Volume fraction] 46.3 % High 34.0-46.0 [facility] [place] Comment on above: Performed By: #### C MP, ABSGEL, GFR, ABOGEL #### [address] [address] Hgb 16.0 G/dL Normal 12.0-16.0 [facility] [place] Comment on above: Performed By: #### C MP, ABSGEL, GFR, ABOGEL #### [address] [address] MCH (RBC) [Entitic mass] 32.1 pg Normal 27.0-33.0 [facility] [place] Comment on above: Performed By: #### C MP, ABSGEL, GFR, ABOGEL #### [place] [address] MCHC 34.6 G/dL Normal 32.0-36.0 [facility] [place] Comment on above: Performed By: #### C MP, ABSGEL, GFR, ABOGEL #### [place] [id number] MCV (RBC) [Entitic vol] 92.7 fL Normal 80.0-99.0 [facility] ([place] Comment on above: Performed By: #### C MP, ABSGEL, GFR, ABOGEL #### [address] [address] Platelet 192 10 3/mcL Normal 150-450 [facility] [place] Comment on above: Performed By: #### C MP, ABSGEL, GFR, ABOGEL #### [address] [address] Platelet mean volume (Bld) [Entitic vol] 8.7 fL Normal 6.6-10.5 [facility] [place] Comment on above: Performed By: #### C MP, ABSGEL, GFR, ABOGEL #### [address] [address] RBC 4.99 10 6/mcL Normal 4.10-5.30 [facility] [place] Comment on above: Performed By: #### C MP, ABSGEL, GFR, ABOGEL #### [address] [address] WBC 11.2 10 3/mcL High 4.5-10.8 [facility] [place] Comment on above: Performed By: #### C MP, ABSGEL, GFR, ABOGEL #### [address] [address] CMPon 12-09-2021 Albumin Level 4.3 G/dL Normal 3.2-4.8 [facility] [place] Comment on above: Performed By: #### C MP, ABSGEL, GFR, ABOGEL #### [place] [id number] Albumin/Globulin [Mass ratio] 1.1 {ratio} Normal 0.9-1.6 [facility] [place] Comment on above: Performed By: #### C MP, ABSGEL, GFR, ABOGEL #### [place] [id number] ALP [Catalytic activity/Vol] 127 U/L High 38-126 [facility] [place] Comment on above: Performed By: #### C MP, ABSGEL, GFR, ABOGEL #### [place] [id number] ALT [Catalytic activity/Vol] 14 U/L Normal 10-49 [facility] [place] Comment on above: Performed By: #### C MP, ABSGEL, GFR, ABOGEL #### [place] [id number] AST [Catalytic activity/Vol] 25 U/L Normal 8-34 [facility] [place] Comment on above: Performed By: #### C MP, ABSGEL, GFR, ABOGEL #### [place] [id number] Bili Total 1.20 mg/dL Normal 0.20-1.20 [facility] [place] Comment on above: Result Comment: Use of this assay is not recommended for patients undergoing treatment with eltrombopag due to the potential for falsely elevated results. Performed By: #### C MP, ABSGEL, GFR, ABOGEL #### [place] [address] BUN/Creatinine Ratio 15.4 ratio Normal 10.0-22.0 [facility] ([place] Comment on above: Performed By: #### C MP, ABSGEL, GFR, ABOGEL #### [address] [address] Calcium [Mass/Vol] 10.3 mg/dL Normal 8.7-10.4 [facility] ([place] Comment on above: Performed By: #### C MP, ABSGEL, GFR, ABOGEL #### [address] [address] Chloride [Moles/Vol] 100 mmol/L Normal 98-110 [facility] ([place] Comment on above: Performed By: #### C MP, ABSGEL, GFR, ABOGEL #### [address] [address] CO2 [Moles/Vol] 34 mmol/L High 22-32 [facility] [place] Comment on above: Performed By: #### C MP, ABSGEL, GFR, ABOGEL #### [address] [address] Creatinine [Mass/Vol] 1.04 mg/dL Normal 0.50-1.20 [facility] [place] Comment on above: Performed By: #### C MP, ABSGEL, GFR, ABOGEL #### [address] [address] Electrolyte Balance 3.0 mEq/L Low 4.0-15.0 [facility] ([place] Comment on above: Performed By: #### C MP, ABSGEL, GFR, ABOGEL #### [address] [address] Globulin 3.8 G/dL Normal 1.5-3.8 [facility] [place] Comment on above: Performed By: #### C MP, ABSGEL, GFR, ABOGEL #### [address] [address] Glucose [Mass/Vol] 139 mg/dL High 82-115 [facility] [place] Comment on above: Performed By: #### C MP, ABSGEL, GFR, ABOGEL #### [address] [address] Potassium [Moles/Vol] 4.9 mmol/L Normal 3.5-5.0 [facility] [place] Comment on above: Performed By: #### C MP, ABSGEL, GFR, ABOGEL #### [address] [address] Sodium [Moles/Vol] 137 mmol/L Normal 136-145 [facility] [place] Comment on above: Performed By: #### C MP, ABSGEL, GFR, ABOGEL #### [address] [address] Total Protein 8.1 G/dL Normal 5.7-8.2 [facility] [place] Comment on above: Result Comment: No te - New Reference Range in effect 19 Performed By: #### C MP, ABSGEL, GFR, ABOGEL #### [address] [address] Urea nitrogen [Mass/Vol] 16.0 mg/dL Normal 8.0-22.0 [facility] [place] Comment on above: Performed By: #### C MP, ABSGEL, GFR, ABOGEL #### [address] [address] Absolute lymphocyte counton 10-09-2021 Lymphocytes Auto (Unsp spec) [#/Vol] 1.75 10*3/uL 0.83-4.51 [facility] Work Phone: Basophil percentageon 2021 Basophils/100 WBC (Bld) 0.8 % 0-1 [facility] Work Phone: Chloride [Moles/Vol] 98 mmol/L 98-107 [facility] Work Phone: Eosinophils/100 WBC (Bld) 3.6 % 0-5 [facility] Work Phone: Glucose [Mass/Vol] 107 mg/dL 74-106 [facility] Work Phone: Comment on above: Fasting Glucose resu lt from 100 to 125 mg/dL suggests IMPAIRED HOMEOSTASIS per A.D.A. criteria. Neutrophils (Bld) [#/Vol] 7.0 10*3/uL 2.0-7.7 [facility] Work Phone: Neutrophils/100 WBC (Bld) 70.3 % 47-70 [facility] Work Phone: Potassium [Moles/Vol] 3.9 mmol/L 3.5-5.1 [facility] Work Phone: Sodium [Moles/Vol] 135 mmol/L 136-145 [facility] Work Phone: WBC (Bld) [#/Vol] 10.0 10*3/uL 4.4-11.0 [facility] Work Phone: Blood erythrocytes count (nu mber/volume)on 10-09-2021 RBC (Bld) [#/Vol] 4.81 10*6/uL 4.2-5.4 [facility] Work Phone: Blood hemoglobin measurement (mass/volume)on 10-09-2021 Hemoglobin (Bld) [Mass/Vol] 15.7 g/dL 12.0-15.0 [facility] Work Phone: [phone] Blood lymphocytes/100 leukoc yteson 10-09-2021 Lymphocytes/100 WBC (Bld) 17.6 % 19-41 [facility] Work Phone: [phone] Blood monocytes/100 leukocyt eson 10-09-2021 Monocytes/100 WBC (Bld) 7.2 % 0-10 [facility] Work Phone: [phone] Blood platelet mean volumeon 10-09-2021 Platelet mean volume (Bld) [Entitic vol] 11.0 fL 6.2-12.0 [facility] Work Phone: Determination of erythrocyte mean corpuscular volume (MCV)on 10-09-2021 MCV (RBC) [Entitic vol] 94.4 fL 81-99 [facility] Work Phone: Hematocrit Auto (Bld) [Volum e fraction]on 10-09-2021 Hematocrit (Bld) [Volume fraction] 45.4 % 37-47 [facility] Work Phone: Laboratory - Chemistry and C hemistry - challengeon 10-09-2021 CO2 [Moles/Vol] 34.0 mmol/L 21.0-32.0 [facility] Work Phone: [phone] Urea nitrogen/Creatinine [Mass ratio] 16.4 mg/mg 10-20 [facility] Work Phone: [phone] Laboratory - Hematology and Cell countson 10-09-2021 Erythrocyte distribution width (RBC) [Entitic vol] 44.9 fL 35.1-43.9 [facility] Work Phone: [phone] Erythrocyte distribution width (RBC) [Ratio] 12.9 % 11.6-14.6 [facility] Work Phone: [phone] Immature granulocytes/100 WBC (Bld) 0.500 % 0.0-0.9 [facility] Work Phone: [phone] Comment on above: IG% - Immature Granu locytes (promyelocytes, myelocytes and metamyelocytes) > 1% indicates that a LEFT SHIFT is Present. MCH (RBC) [Entitic mass] 32.6 pg 27.0-32.0 [facility] Work Phone: [phone] Nucleated RBC/100 WBC (Bld) [Ratio] 0 % 0-5 [facility] Work Phone: [phone] MCHC Auto (RBC) [Mass/Vol]on 10-09-2021 MCHC (RBC) [Mass/Vol] 34.6 g/dL 32-36 [facility] Work Phone: [phone] No Panel Informationon 10-09 Estimated GFR (MDRD) Amer 65 mL/min >60 [facility] Work Phone: [phone] Comment on above: GFR Calc Estimated GFR (MDRD) Non-Af Amer 54 mL/min >60 [facility] Work Phone: [phone] Comment on above: Non- GFR Calc Platelets bldon 10-09-2021 Platelets (Bld) [#/Vol] 208 10*3/uL 150-450 [facility] Work Phone: [phone] Serum or plasma calcium omero urement (mass/volume)on 10-09-2021 Calcium [Mass/Vol] 9.5 mg/dL 8.5-10.1 [facility] Work Phone: Serum or plasma creatinine m easurement (mass/volume)on 10-09-2021 Creatinine [Mass/Vol] 1.10 mg/dL 0.55-1.02 [facility] Work Phone: Comment on above: The validity of the calculated GFR & GFRAA in patients over 70 years has not been determined. Clinical correlation is essential. Serum or plasma urea nitroge n measurement (mass/volume)on 10-09-2021 Urea nitrogen [Mass/Vol] 18 mg/dL 7-18 [facility] Work Phone: Thin prep Papanicolaou smear with manual screeningon 10-09-2021 Thin prep Papanicolaou smear with manual screening 3 5-15 [facility] Work Phone: Whole blood hemoglobin A1c/t otal hemoglobin ratio (mass fraction)on 10-09-2021 HbA1c (Bld) [Mass fraction] 6.2 % 3.8-5.6 [facility] Work Phone: Comment on above: Normal < 5.7 % Predi abetic 5.7 - 6.4 % Diabetic >or= 6.5 % Please note range changes. Vital Signs Date Time Vital Sign Value Performing Clinician Facility 10-25-2024 08:01-0400 Body height 162.[address] Martin Evans MD Work Phone: [facility] 10-25-2024 08:01-0400 Body mass index (BMI) [Ratio] 18.8 kg/m2 Dr. Martin Evans MD Work Phone: [facility] 10-25-2024 08:01-0400 Body weight 49.[address] Martin Evans MD Work Phone: [facility] 10-25-2024 08:01-0400 Diastolic blood pressure 71 mm[Hg] Dr. Martin Evans MD Work Phone: [facility] 10-25-2024 08:01-0400 Heart rate 62 /min Dr. Martin Evans MD Work Phone: [facility] 10-25-2024 08:01-0400 SaO2% (BldA) [Mass fraction] 96 % Dr. Martin Evans MD Work Phone: [facility] 10-25-2024 08:01-0400 Systolic blood pressure 119 mm[Hg] Dr. Martin Evans MD Work Phone: [facility] 08-24-2024 08:55-0400 Body height 162.[address] Martin Evans MD Work Phone: [facility] 08-24-2024 08:55-0400 Body mass index (BMI) [Ratio] 18.3 kg/m2 Dr. Martin Evans MD Work Phone: [facility] 08-24-2024 08:55-0400 Body temperature 97.7 [degF] Dr. Martin Evans MD Work Phone: [facility] 08-24-2024 08:55-0400 Body weight 48.[address] Martin Evans MD Work Phone: [facility] 08-24-2024 08:55-0400 Diastolic blood pressure 78 mm[Hg] Dr. Martin Evans MD Work Phone: [facility] [facility] 08-24-2024 08:55-0400 Heart rate 66 /min Dr. Martin Evans MD Work Phone: [facility] 08-24-2024 08:55-0400 Respiratory rate 16 /min Dr. Martin Evans MD Work Phone: [facility] 08-24-2024 08:55-0400 Systolic blood pressure 110 mm[Hg] Dr. Martin Evans MD Work Phone: [facility] 05-23-2024 08:29-0400 Body mass index (BMI) [Ratio] 19 kg/m2 Dr. Martin Evans MD Work Phone: [facility] 05-23-2024 08:29-0400 Body temperature 98.2 [degF] Dr. Martin Evans MD Work Phone: [facility] 05-23-2024 08:29-0400 Body weight 50.[address] Martin Evans MD Work Phone: [facility] 05-23-2024 08:29-0400 Diastolic blood pressure 70 mm[Hg] Dr. Martin Evans MD Work Phone: [facility] 05-23-2024 08:29-0400 Heart rate 64 /min Dr. Martin Evans MD Work Phone: [facility] 05-23-2024 08:29-0400 Respiratory rate 18 /min Dr. Martin Evans MD Work Phone: [facility] 05-23-2024 08:29-0400 SaO2% (BldA) [Mass fraction] 99 % Dr. Martin Evans MD Work Phone: [facility] 05-23-2024 08:29-0400 Systolic blood pressure 128 mm[Hg] Dr. Martin Evans MD Work Phone: [facility] 03-11-2024 11:39-0500 Body temperature 97.81 [degF] Jose Akins MD Work Phone: [facility] 03-11-2024 11:39-0500 Diastolic blood pressure 63 mm[Hg] Jose Akins MD Work Phone: [facility] 03-11-2024 11:39-0500 Heart rate 60 /min Jose Akins MD Work Phone: [facility] 03-11-2024 11:39-0500 Respiratory rate 16 /min Jose Akins MD Work Phone: [facility] 03-11-2024 11:39-0500 SaO2% (BldA) [Mass fraction] 98 % Jose Akins MD Work Phone: [facility] 03-11-2024 11:39-0500 Systolic blood pressure 131 mm[Hg] Jose Akins MD Work Phone: [facility] 03-11-2024 05:14-0500 Body mass index (BMI) [Ratio] 17.83 kg/m2 Jose Akins MD Work Phone: [phone] [address] 03-11-2024 05:14-0500 Body weight 47.13 kg Jose Akins MD Work Phone: [phone] [address] 03-07-2024 20:00-0500 Body height 162.6 cm Jose Akins MD Work Phone: [facility] 02-24-2024 09:02-0500 Body mass index (BMI) [Ratio] 18 kg/m2 Dr. Martin Evans MD Work Phone: [facility] 02-24-2024 09:02-0500 Body temperature 96.8 [degF] Dr. Martin Evans MD Work Phone: [facility] 02-24-2024 09:02-0500 Body weight 47.[address] Martin Evans MD Work Phone: [facility] 02-24-2024 09:02-0500 Diastolic blood pressure 64 mm[Hg] Dr. Martin Evans MD Work Phone: [facility] 02-24-2024 09:02-0500 Heart rate 76 /min Dr. Martin Evans MD Work Phone: [facility] 02-24-2024 09:02-0500 Respiratory rate 17 /min Dr. Martin Evans MD Work Phone: [facility] 02-24-2024 09:02-0500 SaO2% (BldA) [Mass fraction] 99 % Dr. Martin Evans MD Work Phone: [facility] 02-24-2024 09:02-0500 Systolic blood pressure 122 mm[Hg] Dr. Martin Evans MD Work Phone: [facility] 02-16-2024 10:07-0500 Body temperature 97.8 [degF] Dr. Martin Evans MD Work Phone: [facility] 02-16-2024 10:07-0500 Diastolic blood pressure 75 mm[Hg] Dr. Martin Evans MD Work Phone: [facility] 02-16-2024 10:07-0500 Heart rate 75 /min Dr. Martin Evans MD Work Phone: [facility] 02-16-2024 10:07-0500 Respiratory rate 16 /min Dr. Martin Evans MD Work Phone: [facility] 02-16-2024 10:07-0500 SaO2% (BldA) [Mass fraction] 98 % Dr. Martin Evans MD Work Phone: [facility] 02-16-2024 10:07-0500 Systolic blood pressure 112 mm[Hg] Dr. Martin Evans MD Work Phone: [facility] 02-16-2024 07:56-0500 Body mass index (BMI) [Ratio] 45.1 kg/m2 Dr. Martin Evans MD Work Phone: [facility] 02-16-2024 07:56-0500 Body weight 119.[address] Martin Evans MD Work Phone: [facility] 05-15-2023 09:58-0500 Body height 162.[address] Martin Evans Work Phone: [facility] 05-15-2023 09:58-0500 Body mass index (BMI) [Ratio] 19.5 kg/m2 Dr. Martin Evans Work Phone: [facility] 05-15-2023 09:58-0500 Body temperature 96.9 [degF] Dr. Martin Evans Work Phone: [facility] 05-15-2023 09:58-0500 Body weight 51.[address] Martin Evans Work Phone: [facility] 05-15-2023 09:58-0500 Diastolic blood pressure 78 mm[Hg] Dr. Martin Evans Work Phone: [facility] 05-15-2023 09:58-0500 Heart rate 74 /min Dr. Martin Evans Work Phone: [facility] 05-15-2023 09:58-0500 Respiratory rate 16 /min Dr. Martin Evans Work Phone: [facility] 05-15-2023 09:58-0500 Systolic blood pressure 118 mm[Hg] Dr. Martin Evans Work Phone: [facility] 04-20-2023 08:38-0500 Body height 162.[address] Martin Evans Work Phone: [facility] 04-20-2023 08:37-0500 Body mass index (BMI) [Ratio] 19.4 kg/m2 Dr. Martin Evans Work Phone: [facility] 04-20-2023 08:37-0500 Body weight 51.[address] Martin Evans Work Phone: [facility] 04-20-2023 08:37-0500 Diastolic blood pressure 69 mm[Hg] Dr. Martin Evans Work Phone: [facility] 04-20-2023 08:37-0500 Systolic blood pressure 132 mm[Hg] Dr. Martin Evans Work Phone: [facility] 04-14-2023 09:20-0500 Body mass index (BMI) [Ratio] 19.7 kg/m2 Dr. Martin Evans Work Phone: [facility] 04-14-2023 09:20-0500 Body weight 52.[address] Martin Evans Work Phone: [facility] 04-14-2023 09:20-0500 Diastolic blood pressure 75 mm[Hg] Dr. Martin Evans Work Phone: [facility] 04-14-2023 09:20-0500 Systolic blood pressure 157 mm[Hg] Dr. Martin Evans Work Phone: [facility] 02-10-2023 13:06-0500 Body mass index (BMI) [Ratio] 19.5 kg/m2 Dr. Martin Evans Work Phone: [facility] 02-10-2023 13:06-0500 Body weight 51.[address] Martin Evans Work Phone: [facility] 02-10-2023 13:06-0500 Diastolic blood pressure 72 mm[Hg] Dr. Martin Evans Work Phone: [facility] 02-10-2023 13:06-0500 Heart rate 65 /min Dr. Martin Evans Work Phone: [facility] 02-10-2023 13:06-0500 Respiratory rate 18 /min Dr. Martin Evans Work Phone: [facility] 02-10-2023 13:06-0500 SaO2% (BldA) [Mass fraction] 99 % Dr. Martin Evans Work Phone: [facility] 02-10-2023 13:06-0500 Systolic blood pressure 121 mm[Hg] Dr. Martin Evans Work Phone: [facility] 02-04-2023 10:32-0500 Body height 162.[address] Martin Evans Work Phone: [facility] 02-04-2023 10:32-0500 Body mass index (BMI) [Ratio] 19.9 kg/m2 Dr. Martin Evans Work Phone: [facility] 02-04-2023 10:32-0500 Body temperature 98.3 [degF] Dr. Martin Evans Work Phone: [facility] 02-04-2023 10:32-0500 Body weight 52.[address] Martin Evans Work Phone: [facility] 02-04-2023 10:32-0500 Diastolic blood pressure 76 mm[Hg] Dr. Martin Evans Work Phone: [facility] 02-04-2023 10:32-0500 Heart rate 54 /min Dr. Martin Evans Work Phone: [facility] 02-04-2023 10:32-0500 Respiratory rate 16 /min Dr. Martin Evans Work Phone: [facility] 02-04-2023 10:32-0500 SaO2% (BldA) [Mass fraction] 99 % Dr. Martin Evans Work Phone: [facility] 02-04-2023 10:32-0500 Systolic blood pressure 146 mm[Hg] Dr. Martin Evans Work Phone: [facility] 10-31-2022 10:50-0400 Body mass index (BMI) [Ratio] 20.9 kg/m2 Dr. Martin Evans Work Phone: [facility] 10-31-2022 10:50-0400 Body temperature 98.2 [degF] Dr. Martin Evans Work Phone: [facility] 10-31-2022 10:50-0400 Body weight 55.[address] Martin Evans Work Phone: [facility] 10-31-2022 10:50-0400 Diastolic blood pressure 62 mm[Hg] Dr. Martin Evans Work Phone: [facility] 10-31-2022 10:50-0400 Heart rate 48 /min Dr. Martin Evans Work Phone: [facility] 10-31-2022 10:50-0400 Respiratory rate 16 /min Dr. Martin Evans Work Phone: [facility] 10-31-2022 10:50-0400 SaO2% (BldA) [Mass fraction] 96 % Dr. Martin Evans Work Phone: [facility] 10-31-2022 10:50-0400 Systolic blood pressure 116 mm[Hg] Dr. Martin Evans Work Phone: [facility] 01-09-2022 14:07-0400 Body height 162.[address] Martin Evans Work Phone: [facility] Work Phone: 01-09-2022 14:07-0400 Body mass index (BMI) [Ratio] 20.4 kg/m2 Dr. Martin Evans Work Phone: [facility] Work Phone: 01-09-2022 14:07-0400 Body temperature 96.3 [degF] Dr. Martin Evans Work Phone: [facility] Work Phone: 01-09-2022 14:07-0400 Body weight 53.[address] Martin Evans Work Phone: [facility] Work Phone: 01-09-2022 14:07-0400 Diastolic blood pressure 62 mm[Hg] Dr. Martin Evans Work Phone: [facility] Work Phone: 01-09-2022 14:07-0400 Heart rate 70 /min Dr. Martin Evans Work Phone: [facility] Work Phone: 01-09-2022 14:07-0400 Respiratory rate 16 /min Dr. Martin Evans Work Phone: [facility] Work Phone: 01-09-2022 14:07-0400 SaO2% (BldA) [Mass fraction] 98 % Dr. Martin Evans Work Phone: [facility] Work Phone: 01-09-2022 14:07-0400 Systolic blood pressure 110 mm[Hg] Dr. Martin Evans Work Phone: [facility] Work Phone: 10-09-2021 08:44-0400 Body height 162.[address] Martin Evans Work Phone: [facility] Work Phone: 10-09-2021 08:44-0400 Body mass index (BMI) [Ratio] 22.6 kg/m2 Dr. Martin Evans Work Phone: [facility] Work Phone: 10-09-2021 08:44-0400 Body temperature 97.7 [degF] Dr. Martin Evans Work Phone: [facility] Work Phone: 10-09-2021 08:44-0400 Body weight 59.[address] Martin Evans Work Phone: [facility] Work Phone: 10-09-2021 08:44-0400 Diastolic blood pressure 62 mm[Hg] Dr. Martin Evans Work Phone: [facility] Work Phone: 10-09-2021 08:44-0400 Heart rate 67 /min Dr. Martin Evans Work Phone: [facility] Work Phone: 10-09-2021 08:44-0400 Respiratory rate 14 /min Dr. Martin Evans Work Phone: [facility] Work Phone: 10-09-2021 08:44-0400 SaO2% (BldA) [Mass fraction] 99 % Dr. Martin Evans Work Phone: [facility] Work Phone: 10-09-2021 08:44-0400 Systolic blood pressure 120 mm[Hg] Dr. Martin Evans Work Phone: [facility] Work Phone: 07-05-2021 08:55-0400 Body temperature 97.8 [degF] Dr. Martin Evans Work Phone: [facility] Work Phone: 07-05-2021 08:55-0400 Body weight 61.[address] Martin Evans Work Phone: [facility] Work Phone: 07-05-2021 08:55-0400 Diastolic blood pressure 62 mm[Hg] Dr. Martin Evans Work Phone: [facility] Work Phone: 07-05-2021 08:55-0400 Heart rate 94 /min Dr. Martin Evans Work Phone: [facility] Work Phone: 07-05-2021 08:55-0400 Respiratory rate 16 /min Dr. Martin Evans Work Phone: [facility] Work Phone: 07-05-2021 08:55-0400 SaO2% (BldA) [Mass fraction] 99 % Dr. Martin Evans Work Phone: [facility] Work Phone: 07-05-2021 08:55-0400 Systolic blood pressure 120 mm[Hg] Dr. Martin Evans Work Phone: [facility] Work Phone: 07-05-2021 08:55-0400 Body temperature 97.8 [degF] Dr. Martin Evans Work Phone: [facility] Work Phone: 07-05-2021 08:55-0400 Body weight 61.[address] Martin Evans Work Phone: [facility] Work Phone: 07-05-2021 08:55-0400 Diastolic blood pressure 62 mm[Hg] Dr. Martin Evans Work Phone: [facility] Work Phone: 07-05-2021 08:55-0400 Heart rate 94 /min Dr. Martin Evans Work Phone: [facility] Work Phone: 07-05-2021 08:55-0400 Respiratory rate 16 /min Dr. Martin Evans Work Phone: [facility] Work Phone: 07-05-2021 08:55-0400 SaO2% (BldA) [Mass fraction] 99 % Dr. Martin Evans Work Phone: [facility] Work Phone: 07-05-2021 08:55-0400 Systolic blood pressure 120 mm[Hg] Dr. Martin Evans Work Phone: [facility] Work Phone: Encounters Encounter Date Encounter Type Care Provider Facility Start: 10-25-2024 End: 10-25-2024 Patient encounter procedure Emma BERGER -[facility] Work Phone: Start: 10-25-2024 End: 10-25-[address] Martin Evans MD Work Phone: -[facility] Start: 08-24-2024 End: 08-24-[address] Martin Evans MD Work Phone: [facility] Work Phone: Start: 08-24-2024 End: 08-24-[address] Martin Evans MD -[facility] Start: 08-24-2024 End: 08-24-2024 Dr. Martin Evans MD -[facility] Start: 08-24-2024 End: 08-24-[address] Martin Evans MD -[facility] Work Phone: Start: 08-24-2024 End: 08-24-2024 Dr. Martin Evans MD -[facility] Work Phone: Start: 08-24-2024 End: 08-24-[address] Martin Evans MD Work Phone: [facility] Work Phone: Start: 08-24-2024 End: 08-24-2024 ambulatory Martin Evans Facility:[facility] Start: 07-20-2024 End: 07-20-[address] Stewart Diane MD -[facility] Work Phone: Start: 07-20-2024 End: 07-20-2024 Aliyah Aguilar -[facility] Work Phone: Start: 07-20-2024 End: 07-20-[address] Martin Evans MD Work Phone: [facility] Work Phone: Start: 06-08-2024 End: 06-08-[address] Martin Evans MD Work Phone: [facility] Work Phone: Start: 06-08-2024 End: 06-08-2024 Dr. Stewart Diane MD -[facility] Start: 06-08-2024 End: 06-08-2024 ambulatory [facility] Facility:[facility] Start: 05-23-2024 End: 05-23-2024 Dr. Martin Evans MD -[facility] Work Phone: Start: 05-23-2024 End: 05-23-2024 [facility] Start: 05-23-2024 End: 05-23-2024 ambulatory [facility] Facility:[facility] Start: 04-18-2024 End: 04-18-2024 Dr. Stewart Diane MD -[facility] Work Phone: Start: 04-18-2024 End: 04-18-2024 [facility] Start: 03-21-2024 End: 03-21-2024 Dr. Stewart Diane MD -[facility] Work Phone: Start: 03-21-2024 End: 03-21-2024 ambulatory E[facility] Facility:[facility] Start: 03-07-2024 End: 03-11-2024 Evaluation and management of inpatient Jose Akins MD Work Phone: [phone] Comment on above: Malfunction of devic e Start: 03-07-2024 ambulatory DIXON Coulter lity:[facility] Start: 02-24-2024 End: 02-24-2024 Dr. Martin Evans MD -Laboratory, [facility] Start: 02-24-2024 End: 02-24-2024 Dr. Martin Evans MD -[facility] Work Phone: Start: 02-24-2024 End: 02-24-2024 ambulatory [facility] Facility:[facility] Start: 02-24-2024 End: 02-24-2024 ambulatory [facility] Facility:[facility] Start: 02-16-2024 End: 02-16-2024 Dr. Alfonzo Rahman DO -[facility] t Work Phone: Start: 02-16-2024 End: 02-16-2024 Emergency department patient visit Alfonzo Rahman Facility:[facility] Start: 01-27-2024 End: 01-27-2024 [facility] Start: 01-12-2024 End: 01-12-2024 ambulatory Emma Vargas [facility] Facility:[facility] Start: 12-16-2023 ambulatory Emma Vargas D[facility] Facili ty:[facility] Start: 12-15-2023 ambulatory Rudolph Gooden D[facility] Facility [facility] Start: 12-15-2023 End: 12-15-2023 ambulatory Rudolph Gooden DISH W[employer]ER Facility:[facility] Start: 12-04-2023 ambulatory Stewart Benedicto [facility] Start: 12-04-2023 End: 12-04-2023 ambulatory Linn Benedicto Facility:[facility] Start: 11-18-2023 End: 11-18-2023 ambulatory Stewart Benedicto Facility:[facility] Start: 11-16-2023 End: 11-16-2023 [facility] Start: 11-16-2023 End: 11-16-2023 ambulatory [facility] Facility:[facility] Start: 05-19-[address] Martin Evans Work Phone: [facility] Work Phone: Start: 05-15-2023 End: 05-15-[address] Martin Evans Work Phone: [facility] Work Phone: Start: 05-15-2023 End: 05-15-[address] Martin Evans Work Phone: [facility] Work Phone: Start: 04-20-2023 End: 04-20-[address] Martin Evans Work Phone: [facility] Work Phone: Start: 04-20-2023 End: 04-20-[address] [facility] Start: 04-20-2023 End: 04-20-[address] Martin Evans Work Phone[facility] Work [facility]: Start: 04-14-2023 End: 04-14-[address] Martin Evans Work Phone: [facility] Work Phone: Start: 04-14-2023 End: 04-14-[address] [facility] Work [facility] Start: 04-14-2023 End: 04-14-[address] Martin Evans Work Phone: [facility] Work Phone: Start: 02-10-2023 End: 02-10-[address] Martin Evans Work Phone: [facility] Work Phone: Start: 02-04-2023 End: 02-04-[address] Martin Evans Work Phone: [facility] Work Phone: Start: 02-04-2023 End: 02-04-[address] Martin Evans Work Phone: [facility] [place] Start: 02-04-2023 End: 02-04-[address] Martin Evans Work Phone: [facility] Work Phone: Start: 10-31-2022 End: 10-31-[address] Martin Evans Work Phone: [facility] Work Phone: Start: 01-24-2022 End: 01-24-[address] Martin Evans Work Phone: [facility] Work Phone: Start: 01-24-2022 End: 01-24-[address] Martin Evans Work Phone: [facility] [place] Start: 01-23-2022 End: 01-24-2022 ambulatory CHAR ALVARADO MD Facility:[facility] Start: 01-21-2022 End: 01-21-[address] Martin Evans Work Phone: [facility] Work Phone: Start: 01-21-2022 End: 01-21-[address] Martin Evans Work Phone: [facility] Start: 01-09-2022 End: 01-09-[address] Martin Evans Work Phone: [facility] Work Phone: Start: 01-09-2022 End: 01-09-[address] [facility] Start: 01-09-2022 End: 01-09-[address] Martin Evans Work Phone: [facility] Start: 12-23-2021 End: 12-23-2021 ambulatory CHAR ALVARADO MD Facility:[facility] Start: 12-09-2021 End: 12-10-2021 ambulatory CHAR ALVARADO MD Facility:[facility] Start: 11-14-2021 End: 11-15-2021 ambulatory CHAR ALVARADO MD Facility:[facility] Start: 11-14-2021 End: 11-14-2021 Patient encounter procedure CHAR ALVARADO MD [facility] Start: 10-15-2021 End: 10-15-[address] Martin Evans Work Phone: [facility] Start: 10-09-2021 End: 10-09-[address] Martin Evans Work Phone: [facility] Start: 08-15-2021 End: 08-15-[address] [facility] Start: 07-11-2021 End: 07-11-[address] Martin Evans Work Phone: [facility] Start: 07-05-2021 End: 07-05-[address] Martin Evans Work Phone: [facility] Start: 01-10-[address] Martin Evans Work Phone: [facility] Procedures Date Procedure Procedure Detail Performing Clinician Start: 08-24-[address] Martin Evans MD Work Phone: Start: 08-24-2024 Total cholesterol:HD L ratio measurement Dr. Martin Evans MD Work Phone: Start: 05-23-2024 Blood count smear mc rscp w/mnl difrntl wbc count Dr. Martin [...] OT Start: 03-11-2024 Glucose measurement, blood Jerri Mendoza MD Work Phone: Start: 03-11-2024 Basic metabolic pane l calcium total Jerri Mendoza MD Work Phone: Start: 03-10-2024 Glucose measurement, blood Jerri Mendoza MD Work Phone: Start: 03-10-2024 Radiologic exam ches t 2 views Len Shin MD Work Phone: Start: 03-10-2024 Glucose measurement, blood Jerri Mendoza MD Work Phone: Start: 03-10-2024 Insj 1 transvns eltr d perm pacemaker/impltbl dfb Darren Engle MD Work Phone: Start: 03-10-2024 Glucose measurement, blood Jerri Mendoza MD Work Phone: Start: 03-10-2024 Assay of magnesium Mere Mendoza MD Work Phone: Start: 03-09-2024 Glucose measurement, [...] [Moles/vol ume] in Serum or Plasma POTASSIUM [facility] Start: 05-23-2024 Patient referral [facility] Work Phone: Start: 02-16-2024 [facility] Start: 02-16-2024 [facility] Start: 11-08-2023 COVID-19 VACCINE ( season) COVID-19 VACCINE ( season) [facility] Start: 11-08-2023 Influenza vaccination INFLUENZA VACC INE (#1) [facility] Start: 12-15-2021 Tetanus vaccination TETANUS [facility] Start: 2021 RSV VACCINE (1 - 1-d ose 60+ series) RSV VACCINE (1 - 1-dose 60+ series) [facility] Start: 11-30-2011 Zoster vaccine hzv l karin for subcutaneous use ZOSTER (SHINGLES) VACCINE (1 of 2) [facility] Start: 2006 Screening for malign ant neoplasm of colon COLORECTAL CANCER SCREENING DISCUSSION [facility] Start: 2001 Lipid panel LIPID SCREENING [facility] Start: 2001 Screening for malign ant neoplasm of breast MAMMOGRAM SCREENING DISCUSSION [facility] Start: 1982 Screening for malign ant neoplasm of cervix CERVICAL CANCER SCREENING DISCUSSION [facility] Start: 1976 HIV screening HIV SCREENING DISCUSSION [facility] Start: 11-30-1967 PNEUMOCOCCAL VACCINE SERIES (1 of 2 - PCV) PNEUMOCOCCAL VACCINE SERIES (1 of 2 - PCV) [facility] Start: 1961 Hepatitis C screening HEPATITI S C VIRUS SCREENING [facility] Alanine aminotransfe rase [Enzymatic activity/volume] in Serum or Plasma [facility] Albumin [Mass/volume ] in Serum or Plasma [facility] Alkaline phosphatase [Enzymatic activity/volume] in Serum or Plasma [facility] Bilirubin, total measurement [facility] Bilirubin.direct [Mass/volume] in Serum or Plasma [facility] Cholesterol [Mass/vo lume] in Serum or Plasma [facility] Cholesterol in HDL [Mass/volume] in Serum or Plasma [facility] Hemoglobin A1c/Hemoglobin.total in Blood [facility] End: 03-10-2024 Interrogation of cardiac pacemaker PACEMAKER/ICD INTERROGATION Cardiac Services Routine One Time for 1 Occurrences starting 03/10/2024 until 03/10/2024 [facility] Work Phone: Comment on above: One Time for 1 Occur rences starting 03/10/2024 until 03/10/2024 Low density lipoprot ein cholesterol measurement [facility] Patient referral [facility] Work Phone: Total cholesterol:HD L ratio measurement [facility] Total protein measurement [facility] Triglycerides measurement [facility] VLDL cholesterol measurement [facility] Payers Date Payer Category Payer Medicare MEDICARE MEDICAR E A AND B [id number] 2024-Present [address] [place] [address] [id number] 2023 Self-pay [id number] 2003 Medicare [id number] 1961 Unknown [id number] 1961 Unknown [id number] 1961 Unknown [id number] 1961 Unknown [id number] 1961 Unknown [id number] 1961 Unknown [id number] Unknown [id number] 2.16.840.1.213447.3.579.2.462 Unknown [id number] 2.16.840.1.589986.3.579.2.462 Unknown [id number] 2.16.840.1.436298.3.579.2.462 Unknown [id number] 2.16.840.1.562460.3.579.2.462 Unknown [id number] 2.16.840.1.344938.3.579.2.462 Unknown [id number] 2.16.840.1.369245.3.579.2.462 Unknown [id number] 2.16.840.1.483496.3.579.2.462 Unknown [id number] 2.16.840.1.712876.3.579.2.462 Unknown [id number] 2.16.840.1.380138.3.579.2.462 Unknown [id number] 2.16.840.1.921432.3.579.2.462 Unknown [id number] 2.16.840.1.738110.3.579.2.462 Unknown [id number] 2.16.840.1.861527.3.579.2.462 Unknown [id number] 2.840.1.955813.3.579.2.462 Unknown [id number] 2.840.1.576521.3.579.2.462 Unknown [id number] 2.840.1.895905.3.579.2.462 Unknown [id number] 2.840.1.659541.3.579.2.462 Unknown [id number] 2.840.1.218610.3.579.2.462 Unknown [id number] 2.840.1.818507.3.579.2.462 Unknown [id number] 2.840.1.642615.3.579.2.462 Unknown [id number] 2.840.1.187770.3.579.2.462 Unknown [id number] 2.840.1.386721.3.579.2.462 Unknown [id number] 2.840.1.324265.3.579.2.462 Unknown [id number] 2.840.1.077308.3.579.2.462 Unknown [id number] 2.840.1.601205.3.579.2.462 Unknown [id number] 2.840.1.955631.3.579.2.462 Unknown [id number] .840.1.015336.3.579.2.462 Unknown [id number] .840.1.182720.3.579.2.462 Unknown [id number] 2.840.1.809010.3.579.2.462 Unknown [id number] 2.840.1.781448.3.579.2.462 Unknown [id number] 2.840.1.181162.3.579.2.462 Unknown [id number] 2.840.1.462337.3.579.2.462 Social History Date Type Detail Facility Start: 07-05-2021 End: 05-15-2023 Tobacco smoking status MOIS Unknown if ever smoked [facility] Start: 1960 Sex Assigned At Female [facility] Start: 11-13-2021 End: 02-16-2024 Tobacco smoking status Heavy tobacco smoker (finding) [facility] Sex Assigned At Sex [facility] Start: 03-07-2024 Tobacco smoking status NHIS Ex-smoker [facility] History of tobacco use Current smoker [facility] History of tobacco use Cigarette Smoker [facility] Start: 03-11-2024 Alcoholic beverage intake Lifetime non-drinker (finding) [facility] Start: 03-07-2024 End: 03-08-2024 History of Social function [facility] Start: 03-07-2024 End: 03-08-2024 [facility] Utilities [facility] Has the [employer], [employer], or water [employer] threatened to shut off services in your home in past 12Mo No [facility] How hard is it for y ou to pay for the very basics like food, housing, medical care, and heating Somewhat hard [facility] (I/We) worried serafin er (my/our) food would run out before (I/we) got money to buy more. Never true [facility] In the past 12 month s, has lack of transportation kept you from medical appointments or from getting medications? No [facility] Start: 03-07-2024 Tobacco Comment Recently stopped 03/05/24 [facility] Start: 1960 Sex assigned at Not on file [facility] Start: 06-14-2024 Sex Female (finding) [facility] Medical Equipment Procedure Code Equipment Code Equipment Origin al Text Equipment Identifier Dates Defibrillator Ca rdiac 3d .99cm Spiral 5.37x8.18cm Inogen - [id number] Start: 03-10-2024 Lead Pacing 59cm Atrial Ventricular Ingevity+ Extendable - [id number] Start: 03-10-2024 Plug Lead Silico ne Port Is-1 Kit If - [id number] Start: 03-10-2024 Comment on above: Description: Lead ca p. Clinical Notes 04-14-2023 to 10-25-2024 Note Date & Type Note Facility 10-25-[address] [facility] 07-20-2024 Procedure note [facility] 07-20-2024 Evaluation note Diagnosis Onset Date Resolution Chronic systolic (congestive) heart failure chronic July 20, 2024 8:03am Nonischemic cardiomyopathy chronic July 20, 2024 8:03am Presence of biventricular implantable cardioverter-defibri llator (ICD) April, chronic July 20, 2024 8:03am ICD (implantable cardioverter-defibri llator) battery depletion resolved July 20, 2024 8:03am Tobacco abuse, in remission acute August 24, 2024 8:45am Chronic diarrhea chronic August 8:45am Essential (primary) hypertension chronic August 24, 2024 8:45am Generalized anxiety disorder chronic August 24, 2024 8:45am Hyperlipidemia chronic August 24, 2024 8:45am Type 2 diabetes mellitus chronic August 24, 2024 8:45am Essential (primary) hypertension chronic October 25, 2024 7:50am Nonischemic cardiomyopathy chronic October 25, 2024 7:50am Presence of biventricular implantable cardioverter-defibri llator (ICD) April, chronic October 25, 2024 7:[address] [facility] Work Phone: 1(910) 675-326005-14-2025 Evaluation note* Diagnosis Onset Date Resolution Status Admit Date Chronic systolic (congestive ) heart failure chronic July 20, 2024 8 :03am Nonischemic cardiomyopathy chronic July 20, 2024 8:03am Presence of biventricular implantable cardioverter-defibrillator (ICD) April, chronic July 20, 2024 8 :03am ICD (implantable cardioverter-defibrillator) battery depletion resolved July 20, 2024 8:03am Tobacco abuse, in remission acute August 24, 2024 8:45am Chronic diarrhea chronic August 8:45am Essential (primary) hypertension chronic August 24, 2024 8:45am Generalized anxiety disorder chronic August 24, 2024 8:45am Hyperlipidemia chronic August 24, 2024 8:45am Type 2 diabetes mellitus chronic August 24, 2024 8:45am Chronic systolic (congestive ) heart failure chronic October 25 7:49am Nonischemic cardiomyopathy chronic October 25, 2024 7:49am ICD (implantable cardioverter-defibrillator) battery depletion resolved October 25, 7:49am Essential (primary) hypertension chronic October 25 7:50am Hyperlipidemia chronic October 7:50am Nonischemic cardiomyopathy chronic October 25, 2024 7:50am Presence of biventricular implantable cardioverter-defibrillator (ICD) April, chronic October 25 7:50am [facility] Work Phone: 1(727) 699-834503-17-2025 Evaluation note* Diagnosis Onset Date Resolution Status Admit Date Activities involving persona l bathing and showering acute May 8:23am Tobacco abuse, in remission acute May 23, 2024 8:23am Chronic diarrhea chronic May 232024 8:23am Essential (primary) hypertension chronic May 23, 2024 8:23am Generalized anxiety disorder chronic May 23, 2024 8:23am Lower extremity weakness chronic May 23, 2024 8:23am Type 2 diabetes mellitus chronic May 23, 2024 8:23am Chronic systolic (congestive ) heart failure chronic July 20, 2024 8:03am Nonischemic cardiomyopathy chronic July 20, 2024 8:03am Presence of biventricular implantable cardioverter-defibrillator (ICD) April, chronic July 20, 2024 8:03am ICD (implantable cardioverter-defibrillator) battery depletion resolved July 20, 2024 8:03am [facility] Work Phone: 1(701) 144-777203-17-2025 Evaluation note* Diagnosis Onset Date Resolution Status Admit Date Activities involving persona l bathing and showering acute May 8:23am Tobacco abuse, in remission acute May 23, 2024 8:23am Chronic diarrhea chronic May 232024 8:23am Essential (primary) hypertension chronic May 23, 2024 8:23am Generalized anxiety disorder chronic May 23, 2024 8:23am Lower extremity weakness chronic May 23, 2024 8:23am Type 2 diabetes mellitus chronic May 23, 2024 8:23am Chronic systolic (congestive ) heart failure chronic July 20, 2024 8:03am Nonischemic cardiomyopathy chronic July 20, 2024 8:03am Presence of biventricular implantable cardioverter-defibrillator (ICD) April, chronic July 20, 2024 8:03am ICD (implantable cardioverter-defibrillator) battery depletion resolved July 20, 2024 8:03am Tobacco abuse, in remission acute August 24, 2024 8:45am Chronic diarrhea chronic August 8:45am Essential (primary) hypertension chronic August 24, 2024 8:45am Generalized anxiety disorder chronic August 24, 2024 8:45am Hyperlipidemia chronic August 24, 2024 8:45am Type 2 diabetes mellitus chronic August 24, 2024 8:45am [facility] Work Phone: 1(395) 272-166302-10-2025 Evaluation note* Diagnosis Onset Date Resolution Status Admit Date Chronic systolic (congestive) heart failure chronic 2024 8:25am Nonischemic cardiomyopathy chronic April 18, 2024 8:25am Presence of biventricular implantable cardioverter-defibrillator (ICD) April, chronic April 18, 8:25am Activities involving personal bathing and showering [...] battery depletion resolved July 20, 2024 8:03am [facility] Work Phone: 1(397) 116-424101-03-2025 History of Present illness Narrative* ELIZABETH Chester - 03/11/2024 1:29 PM EST Care Management Discharge Note Patient discharging to home Transport Request Mode of Transfer: Private Vehicle Patient medically stable for discharge per physician/medical team. Patient/Land Leases And Rentals Manager remain inagreement with the discharge plan. Nyla JOHNSON [facility] * SHELLEY Flores - 03/11/2024 11:14 AM EST Electrophysiology Consult SIGN OFF Tanvi Garza is a 63 y.o. female with a history of COPD, hypertension, CAD and sick sinus syndrome status post pacemaker implantation in 2008. Since that time, she has followed with [facility]. Her LVEF has fluctuated but was most recently 25% (was previously as high as 40%). She has also been given GDMT for CHF. Her capture threshold has gradually risen and is now 6.5 V which occasionally provokes diaphragmatic stimulation. She was admitted 03/07/2024 from EP clinic for inpatient evaluation of DIE FINISHER-D system and possible intervention. On 03/10, the [...] Device Clinic appointment scheduled with an outside clinic-[place] Follow Up Testing No additional testing is required at the follow up visit. Medication Changes No changes were made to patient's cardiovascular medications. If you have any further questions regarding the care of this patient, please do not hesitate to reach out to our team. SHELLEY Flores 03/11/24 11:14 AM * Jerri Mendoza MD - 03/10/2024 6:26 PM EST [facility] Medicine Progress Note Patient: Tanvi Garza, : 1960, Impression / Plan Tanvi Garza is a 63 y.o. female with a history of NICM / HFrEF (EF 25% 11/2023) s/p DIE FINISHER-D (2008), HTN, and COPD who presented as a direct admission from EP clinic for management of her cardiac device that was found to be at recommended replacement time. Cardiac device at recommended replacement time Pt had a DIE FINISHER-D placed in 2008 for low EF that [...] electrolytes prn Chronic NICM / HFrEF s/p DIE FINISHER-D 2008 HTN EF 25% on TTE 11/2023 -Hold Lasix on 1/2 am -Held losartan 1/ pm (needs held for 24 [...] Morelos MD - 03/09/2024 2:11 PM EST [facility] Medicine Progress Note Patient: Tanvi Garza, : 1960, Impression / Plan Tanvi Garza is a 63 y.o. female with a history of NICM / HFrEF (EF 25% 11/2023) s/p DIE FINISHER-D (2008), HTN, and COPD who presented as a direct admission from EP clinic for management of her cardiac device that was found to be at recommended replacement time. Cardiac device at recommended replacement time Pt had a DIE FINISHER-D placed in 2008 for low EF that [...] electrolytes prn Chronic NICM / HFrEF s/p DIE FINISHER-D 2008 HTN EF 25% on TTE 11/2023 [...] Na/K+/Phos/Mg/Ca: 138/4.3/--/--/8.9 (03/09 623) Bun/Creat/Cl/CO2/Glucose: 15/0.82/105/27/118 (03/09 0624-03/09 1149) * Joselyn Morelos MD - 03/08/2024 4:12 PM EST [facility] Medicine Progress Note Patient: Tanvi Garza, : 1960, Impression / Plan Tanvi Garza is a 63 y.o. female with a history of NICM / HFrEF (EF 25% 11/2023) s/p DIE FINISHER-D (2008), HTN, and COPD who presented as a direct admission from EP clinic for management of her cardiac device that was found to be at recommended replacement time. Cardiac device at recommended replacement time Pt had a DIE FINISHER-D placed in 2008 for low EF that [...] electrolytes prn Chronic NICM / HFrEF s/p DIE FINISHER-D 2008 HTN EF 25% on TTE 11/2023 [...] asks if she can speak with a rn social services face to face to discuss concerns about [...] 3:10 PM EST KRUNAL provided patient with grades 1 thru 6 home teacher/maker services for [employer]. KRUNAL explained that she is able to self refer if she needs the services or she can wait. They also provide more services than what is on the sheet provided. KRUNAL remains available for any additional needs. Olesya PERRIN, JESSICA Licensed [employer] * JESSICA Anthony - 03/08/2024 11:48 AM [...] Parents: Yes Name and Contact information: Cici Reyna, Adult Sibling(s), List All Adult Siblings: Yes Name and Contact information: César Reyna, Referral to Social Work to Identify Legal [...] Is the patient from a facility or usp?: No Patient lives with: Spouse or Partner [...] have prescription insurance coverage? : No [facility] [place] [address] [address] [place] [address] [employer] Does the patient or registration representative express financial concerns? : Yes Financial [...] to complete HCAP screen and notified pharmacy specialist of NO PART D. Patient confirms that she will have transportation at discharge. SW provided HCPOA packet, explained the document and encouraged the patient to reach out when she was ready to complete. Care Management Plan Role of Rail [employer] explained while admitted to [facility] 2. PCP/Specialist/pharmacy information updated as needed 3. Patient demographic/address/emergency contact information verified 4. [employer] will continue to follow with medical team to coordinate discharge planning. JESSICA Hurtado [employer] * Johann Cabrera - 03/07/2024 3:10 PM EST Department of Pharmacy Admission Medication Reconciliation Note Patient: Tanvi Garza Room/Bed: 70/A I have reviewed the patient's home medication [...] further questions. Name: Johann Cabrera Phone #: [phone] Date/Time: 03/07/2024 3:10 PM Time Spent: 20 minutes Associated attestation - Wu Mcnulty RPH - 03/09/2024 10:35 PM EST Department of Pharmacy Admission Medication Reconciliation Note Patient: Tanvi Garza Room/Bed: [facility] I have reviewed the home medication list with the [employer]. The home medication list status is: complete. All changes to the home medication list have been updated in [facility]. Updated [employer] Med List: Prior to Admission Medications Prescriptions [...] me with any further questions. Name: Wu Mcnulty, [facility] Phone #: [phone] Date/Time: 03/09/2024 10:35 PM [facility] History of Present illness Narrative* ELIZABETH Chester - 03/11/2024 1:29 PM EST Care Management Discharge Note Patient discharging to home Transport Request Mode of Transfer: Private Vehicle Patient medically stable for discharge per physician/medical team. Patient/Land Leases And Rentals Manager remain inagreement with the discharge plan. Nyla JOHNSON [facility] * SHELLEY Flores - 03/11/2024 11:14 AM EST Electrophysiology Consult SIGN OFF Tanvi Garza is a 63 y.o. female with a history of COPD, hypertension, CAD and sick sinus syndrome status post pacemaker implantation in 2008. Since that time, she [facility] [place] Her LVEF has fluctuated but was most recently 25% (was previously as high as 40%). She has also been given GDMT for CHF. Her capture threshold has gradually risen and is now 6.5 V which occasionally provokes diaphragmatic stimulation. She was admitted 03/07/2024 from EP clinic for inpatient evaluation of DIE FINISHER-D system and possible intervention. On 03/10, the [...] Device Clinic appointment scheduled with an outside clinic-[place] Follow Up Testing No additional testing is required at the follow up visit. Medication Changes No changes were made to patient's cardiovascular medications. If you have any further questions regarding the care of this patient, please do not hesitate to reach out to our team. SHELLEY Flores 03/11/24 11:14 AM * Jerri Mendoza MD - 03/10/2024 6:26 PM EST [facility] Medicine Progress Note Patient: Tanvi Garza, : 1960, Impression / Plan Tanvi Garza is a 63 y.o. female with a history of NICM / HFrEF (EF 25% 11/2023) s/p DIE FINISHER-D (2008), HTN, and COPD who presented as a direct admission from EP clinic for management of her cardiac device that was found to be at recommended replacement time. Cardiac device at recommended replacement time Pt had a DIE FINISHER-D placed in 2008 for low EF that [...] electrolytes prn Chronic NICM / HFrEF s/p DIE FINISHER-D 2008 HTN EF 25% on TTE 11/2023 -Hold Lasix on 1/2 am -Held losartan 1/ pm (needs held for 24 [...] Morelos MD - 03/09/2024 2:11 PM EST [facility] Medicine Progress Note Patient: Tanvi Garza, : 1960, Impression / Plan Tanvi Garza is a 63 y.o. female with a history of NICM / HFrEF (EF 25% 11/2023) s/p DIE FINISHER-D (2008), HTN, and COPD who presented as a direct admission from EP clinic for management of her cardiac device that was found to be at recommended replacement time. Cardiac device at recommended replacement time Pt had a DIE FINISHER-D placed in 2008 for low EF that [...] electrolytes prn Chronic NICM / HFrEF s/p DIE FINISHER-D 2008 HTN EF 25% on TTE 11/2023 -Hold Lasix on 1/2 am -Hold losartan 03/09 pm (needs held for 24 [...] Morelos MD - 03/08/2024 4:12 PM EST [facility] Medicine Progress Note Patient: Tanvi Garza, : 1960, Impression / Plan Tanvi Garza is a 63 y.o. female with a history of NICM / HFrEF (EF 25% 11/2023) s/p DIE FINISHER-D (2008), HTN, and COPD who presented as a direct admission from EP clinic for management of her cardiac device that was found to be at recommended replacement time. Cardiac device at recommended replacement time Pt had a DIE FINISHER-D placed in 2008 for low EF that [...] electrolytes prn Chronic NICM / HFrEF s/p DIE FINISHER-D 2008 HTN EF 25% on TTE 11/2023 [...] asks if she can speak with a rn social services face to face to discuss concerns about [...] JESSICA Anthony - 03/08/2024 3:10 PM EST SW provided patient with grades 1 thru 6 home teacher/maker services for [employer]. KRUNAL explained that she is able to self refer if she needs the services or she can wait. They also provide more services than what is on the sheet provided. SW remains available for any additional needs. Olesya PERRIN, JESSICA Licensed Bondsman * JESSICA Anthony - 03/08/2024 11:48 AM [...] Spouse: Yes Name and Contact information: Adam Joel, Parent(s) - List All Living Parents: Yes Name and Contact information: Cici Reyna, Adult Sibling(s), List All Adult Siblings: Yes [...] Is the patient from a facility or usp?: No Patient lives with: Spouse or Partner [...] have prescription insurance coverage? : No [facility] [place] [address] [address] [place] [address] [employer] Does the patient or registration representative express financial concerns? : Yes Financial [...] to complete HCAP screen and notified pharmacy specialist of NO PART D. Patient confirms that she will have transportation at discharge. SW provided HCPOA packet, explained the document and encouraged the patient to reach out when she was ready to complete. Care Management Plan Role of [employer] explained while admitted to [facility] 2. PCP/Specialist/pharmacy information updated as needed 3. Patient demographic/address/emergency contact information verified 4. [employer] will continue to follow with medical team to coordinate discharge planning. JESSICA Hurtado Licensed Bondsman * Johann Cabrera - 03/07/2024 3:10 PM EST Department of Pharmacy Admission Medication Reconciliation Note Patient: Tanvi Garza Room/Bed: [facility]/A I have reviewed the patient's home medication [...] further questions. Name: Johann Cabrera Phone #: [phone] Date/Time: 03/07/2024 3:10 PM Time Spent: 20 minutes Associated attestation - Wu Mcnulty RPH - 03/09/2024 10:35 PM EST Department of Pharmacy Admission Medication Reconciliation Note Patient: Tanvi Garza Room/Bed: [facility]/A I have reviewed the home medication list with the [employer]. The home medication list status is: complete. All changes to the home medication list have been updated in [facility]. Updated [employer] Med List: Prior to Admission Medications Prescriptions [...] with any further questions. Name: Wu Mcnulty [facility] Phone #: [phone] Date/Time: 03/09/2024 10:35 PM [facility] Nurse Note* Nursing Notes - Ashlyn [...] No further issues at time of discharge. [facility]01-03-[facility] Miscellaneous Notes* Nursing Notes - Ashlyn Brown [...] of Care Outcome: Progressing documented in this encounterU [facility] Miscellaneous Notes* Nursing Notes - Ashlyn Brown [...] of Care Outcome: Progressing [facility] course Narrative* Jerri Mendoza MD - 03/11/2024 12:17 PM EST Hospital Medicine Discharge Summary Patient: Tanvi Garza, : 1960, Admission Details Admit Date 03/07/2024 Discharge Date 03/11/2024 Inpatient Days 4 Primary Diagnoses Need for DIE FINISHER-D upgrade Hypomagnesemia Action Items Follow-up in device clinic scheduled in [place] Summary of Hospitalization Dear Doctors, I recently had the opportunity to care for Tanvi Garza during her recent hospital stay at [facility]. As you may know, Ms. Tanvi Garza is a 63 y.o. female with a history of NICM / HFrEF (EF 25% 11/2023) s/p DIE FINISHER-D (2008), HTN, and COPD who presented as a direct admission from EP clinic for management of her cardiac device that was found to be at recommended replacement time. Cardiac device at recommended replacement time Pt had a DIE FINISHER-D placed in 2008 for low EF that [...] Device Clinic appointment scheduled with an outside clinic-[place] Chronic NICM / HFrEF s/p DIE FINISHER-D 2008 HTN EF 25% on TTE 11/2023 - Hold Lasix on 1/2 am, resumed at discharge - Held losartan 1/ pm (needs held for 24 [...] the patient's recordscan be obtained via [facility] at [email or web address] It has been my pleasure participating in this patient's care. Please contact me with any questions or concerns regarding her hospital stay. The total time of discharge was 25 minutes. Sincerely, Jerri Mendoza MD Division of Hospital Medicine Relevant Data [...] erythema Skin: No jaundice or rash Neuro: endless track vehicle supervisor 3-7, 9-11 intact and equal. Psych: Ox3, [...] Commonly known as: ZOCOR documented in this encounterU [facility] Plan of care note* Plan of Care [...] orders when appropriate. Antiarrhythmic given as scheduled. [facility]01-03-2025 Plan of care note* Plan of Care [...] Electrolytes replaced with prn orders when appropriate. [facility]01-02-2025 Plan of care note* Plan of Care [...] Dysrhythmia Goal: Normalized Cardiac Rhythm Outcome: Progressing [facility]01-01-2025 Plan of care note* Plan of Care - Danielle Richardson RN - 03/09/2024 11:30 PM EST Problem: Adult Inpatient Plan of Care Goal: Plan of Care Review Outcome: Progressing Goal: Patient-Specific Goal (Individualized) Outcome: Progressing Goal: Absence of Hospital-Acquired Illness or Injury Outcome: Progressing Goal: Optimal Comfort and Wellbeing Outcome: Progressing [facility]12-[facility] Hospital Discharge instructions* Discharge Instructions* Porsche Elise RN - 03/08/2024 10:40 AM EST Patient Experience Survey Reminder You may receive a survey in the mail within a few weeks regarding your hospitalization. This helps us to improve the care and services we provide at [facility]. We truly appreciate you taking the time to fill this out. We particularly welcome any specific comments you may have (good or bad!) regarding [facility] so that we may use them to continue to strive towards excellence for our patients. documented in this encounterOSU [facility] Hospital Discharge instructions* Discharge Instructions* Porsche Elise RN - 03/08/2024 10:40 AM EST Patient Experience Survey Reminder You may receive a survey in the mail within a few weeks regarding your hospitalization. This helps us to improve the care and services we provide at [facility]. We truly appreciate you taking the time to fill this out. We particularly welcome any specific comments you may have (good or bad!) regarding your experience[facility] so that we may use them to continue to strive towards excellence for our patients. [facility] Plan of care note* Plan of Care - Brook Escamilla RN - 03/07/2024 8:28 PM EST Problem: Adult Inpatient Plan of Care Goal: Plan of Care Review Outcome: Progressing Goal: Patient-Specific Goal (Individualized) Outcome: Progressing Goal: Absence of Hospital-Acquired Illness or Injury Outcome: Progressing Goal: Optimal Comfort and Wellbeing Outcome: Progressing Goal: Readiness for Transition of Care Outcome: Progressing [facility]12-30-2024 History and physical note* Thai Miranda MD - 03/07/2024 3:57 PM EST Hospital Medicine Admission History & Physical Patient: Tanvi Garza, : 1960, Date of face to face patient encounter: 03/07/2024 Impression / Plan 63yo WF with pmh of S/p PPM, HFrEF EF 25%, HTN, COPD who is admitted due to PPM at [facility]. S/p PPM at [facility]: - EP consulted. Venogram ordered - pending results may need new lead vs. High risk extraction and reimplant - NPO at [place] in case of procedure tomorrow. HFrEF EF [...] home supplementation Diet: cardiac diet. NPO at [place] in case of procedure. Ppx: lovenox Patient is Full Code Dispo: home Chief Complaint PPM at [facility] History of Presenting Illness Ms. Garza is a 63yo WF with pmh of S/p PPM, HFrEF EF 25%, HTN, COPD who is admitted due to PPM at [facility]. Was seen in EP clinic today and [...] erythema Skin: No jaundice or rash Neuro: endless track vehicle supervisor 3-7, 9-11 intact and equal. Strength grossly equal in muscle groups of the bilateral UEsand LEs. Psych: Ox3, appropriate affect and cognition Data Review EKG personally reviewed, significant for v paced rhythm [facility]12-30-2024 History and physical note* Thai Miranda [...] risk extraction and reimplant - NPO at [place] in case of procedure tomorrow. HFrEF EF [...] home supplementation Diet: cardiac diet. NPO at [place] in case of procedure. Ppx: lovenox Patient [...] erythema Skin: No jaundice or rash Neuro: endless track vehicle supervisor 3-7, 9-11 intact and equal. Strength grossly equal in muscle groups of the bilateral UEsand LEs. Psych: Ox3, appropriate affect and cognition Data Review EKG personally reviewed, significant for v paced rhythm [facility] History and physical note* Thai Miranda [...] risk extraction and reimplant - NPO at [place] in case of procedure tomorrow. HFrEF EF [...] home supplementation Diet: cardiac diet. NPO at [place] in case of procedure. Ppx: lovenox Patient [...] erythema Skin: No jaundice or rash Neuro: endless track vehicle supervisor 3-7, 9-11 intact and equal. Strength grossly equal in muscle groups of the bilateral UEsand LEs. Psych: Ox3, appropriate affect and cognition Data Review EKG personally reviewed, significant for v paced rhythm [facility] Consult note* Eddy Lr MD - 03/07/2024 [...] IMPRESSION Permanent pacemaker at [facility] Status post DIE FINISHER-D implant RECOMMENDATIONS We will obtain venogram today [...] Since that time, [facility]. Her LVEF has fluctuated but was most recently 25% (was previously as high as 40%). She has also been given GDMT for CHF. Her capture threshold has gradually risen and is now 6.5 V which occasionally provokes diaphragmatic stimulation. She was admitted 03/07/2024 from EP clinic for inpatient evaluation of DIE FINISHER-D system and possible intervention. She denies ever [...] all extremities independently. DATA REVIEWED: EKG (03/07/2024): SEPTIC TANK SERVICER rhythm Telemetry Data: None yet No results found for: SODIUM, POTASSIUM, GLUCOSE, CHLORIDE, CO2, BUN, CREATSERUM No results found for: WBC, WBCCOUNT, WBCFETAL, HGB, HCT, PLATELET, MCV No results found for: TROP, BNP No results found for: TSH Transthoracic echocardiogram (12/04/23): Associated attestation - Darren Engle MD - 03/07/2024 4:30 PM EST I have personally interviewed and examined this patient with the DISH WASHER/Fellow/Resident. I have reviewed the history and examination and edited these in the attached note. I agree with themedical decision and components of the note as edited by me. This is a very pleasant 63-year-old female who has a history a biventricular AICD. She follows [facility]helectrophysiology at [facility]. She had been doing relatively well and she takes care of her own ADLs along with her 's. She had some degree of response to DIE FINISHER D with an ejection fraction improvement from [...] the most ideal scenario. Dr. Katie Engle Rn Childchild therapist Division of Cardiac Electrophysiology [facility] Work Phone: 1(872) 410-938812-30-2024 Consult note* Eddy Lr MD - 03/07/2024 [...] IMPRESSION Permanent pacemaker at [facility] Status post DIE FINISHER-D implant RECOMMENDATIONS We will obtain venogram today [...] Since that time, she has followed with [facility]. Her LVEF has fluctuated but was most recently 25% (was previously as high as 40%). She has also been given GDMT for CHF. Her capture threshold has gradually risen and is now 6.5 V which occasionally provokes diaphragmatic stimulation. She was admitted 03/07/2024 from EP clinic for inpatient evaluation of DIE FINISHER-D system and possible intervention. She denies ever [...] all extremities independently. DATA REVIEWED: EKG (03/07/2024): SEPTIC TANK SERVICER rhythm Telemetry Data: None yet No results found for: SODIUM, POTASSIUM, GLUCOSE, CHLORIDE, CO2, BUN, CREATSERUM No results found for: WBC, WBCCOUNT, WBCFETAL, HGB, HCT, PLATELET, MCV No results found for: TROP, BNP No results found for: TSH Transthoracic echocardiogram (12/04/23): Associated attestation - Darren Engle MD - 03/07/2024 4:30 PM EST I have personally interviewed and examined this patient with the DISH WASHER/Fellow/Resident. I have reviewed the history and examination and edited these in the attached note. I agree with themedical decision and components of the note as edited by me. This is a very pleasant 63-year-old female who has a history a biventricular AICD. She follows withelectrophysiology at [facility]. She had been doing relatively well and she takes care of her own ADLs along with her 's. She had some degree of response to DIE FINISHER D with an ejection fraction improvement from [...] the most ideal scenario. Dr. Katie Engle Rn Childchild therapist Division of Cardiac Electrophysiology [facility] Consult note* Eddy Lr MD - 03/07/2024 [...] IMPRESSION Permanent pacemaker at [facility] Status post DIE FINISHER-D implant RECOMMENDATIONS We will obtain venogram today [...] Since that time, [facility]. Her LVEF has fluctuated but was most recently 25% (was previously as high as 40%). She has also been given GDMT for CHF. Her capture threshold has gradually risen and is now 6.5 V which occasionally provokes diaphragmatic stimulation. She was admitted 03/07/2024 from EP clinic for inpatient evaluation of DIE FINISHER-D system and possible intervention. She denies ever [...] all extremities independently. DATA REVIEWED: EKG (03/07/2024): SEPTIC TANK SERVICER rhythm Telemetry Data: None yet No results found for: SODIUM, POTASSIUM, GLUCOSE, CHLORIDE, CO2, BUN, CREATSERUM No results found for: WBC, WBCCOUNT, WBCFETAL, HGB, HCT, PLATELET, MCV No results found for: TROP, BNP No results found for: TSH Transthoracic echocardiogram (12/04/23): Associated attestation - Darren Engle MD - 03/07/2024 4:30 PM EST I have personally interviewed and examined this patient with the DISH WASHER/Fellow/Resident. I have reviewed the history and examination and edited these in the attached note. I agree with themedical decision and components of the note as edited by me. This is a very pleasant 63-year-old female who has a history a biventricular AICD. She follows wit[facility]lectrophysiology at [facility]. She had been doing relatively well and she takes care of her own ADLs along with her 's. She had some degree of response to DIE FINISHER D with an ejection fraction improvement from [...] the most ideal scenario. Dr. Katie Engle Rn Childchild therapist Division of Cardiac Electrophysiology documented in [facility]The [facility] Evaluation note * Diagnosis Onset Date Resolution Status Admit Date Essential (primary) hypertension chronic February 23, 2 024 8:36am Generalized anxiety disorder chronic February 24, 2024 8:36am Hypomagnesemia chronic February 062023 8:36am Nonischemic cardiomyopathy chronic February 24, 2024 8:36am Type 2 diabetes mellitus chronic February 24, 2024 8:36am Chronic systolic (congestive) heart failure chronic 2024 8:50am Nonischemic cardiomyopathy chronic March 21, [...] implantable cardioverter-defibrillator (ICD) April, chronic April 18, 2 025 8:25am Activities involving personal bathing and showering acute May 23, 2024 8:23am Tobacco abuse, in remission acute May 23, 2024 8:23am Chronic diarrhea chronic May 232024 8:23am Essential (primary) hypertension chronic May 23, 2024 8:23am Generalized anxiety disorder chronic May 23, 2024 8:23am Lower extremity weakness chronic May 23, 2024 8:23am Type 2 diabetes mellitus chronic May 23, 2024 8:23am [facility] Work Phone: 1(252) 718-611902-06-2024 NotePap Smear Specimen AdequacyFebruary 2023 2:59pmComment.Satisfactory for evaluation. No endocervical component is identified.[facility] INTERFACED A#[id number] Health Allen Hospital on above:Satisfactory for evaluation. No endocervical component is identified. 04-14-2023 NotePap Smear Specimen AdequacyFebruary 2023 2:59pmComment. Satisfactory for evaluation. No endocervical component is identified.[email or web address] INTERFACED A#[id number] Memorial HospitalCommclaren [facility] [place] on above:Satisfactory for evaluation. No endocervical component is identified.04-14-2023 NotePap Smear Specimen AdequacyFebruary 2023 3:59pmComment.Satisfactory for evaluation. No endocervical component is identified.[facility] INTERFACED A#[id number] Health Allen Hospital on above:Satisfactory for evaluation. No endocervical component is identified.Evaluation + Plan note Future Appointments Appointment Date:12/12/2021 09:00:00 AM Scheduled Provider:CHAR ALVARADO MD Location:[facility] Appointment Type:[facility] Evaluation note* Diagnosis Onset Date Resolution Status COPD (chronic obstructive pulmonary disease) chronic Essential (primary) hypertension chronic Weight loss, non-intentional chronic Chronic systolic (congestive) heart failure chronic Nonischemic cardiomyopathy c hronic Presence of biventricular im plantable cardioverter-defibrillator (ICD) April, [facility] Work Phone: Evaluation note* Diagnosis Onset Date Resolution Status COPD (chronic obstructive pulmonary disease) chronic Essential (primary) hypertension chronic Weight loss, non-intentional chronic Chronic systolic (congestive) heart failure chronic Nonischemic cardiomyopathy c hronic Presence of biventricular im plantable cardioverter-defibrillator (ICD) April, chronic Cancer of vulva acute Depression with anxiety bi consultant meliton Essential (primary) hypertension chronic Type 2 diabetes mellitus chr onic Weight loss, non-intentional [facility] Work Phone: Evaluation note* Diagnosis Onset Date Resolution Status Cancer of vulva acute Depression with anxiety bi consultant meliton Essential (primary) hypertension chronic Type 2 diabetes mellitus chr onic Weight loss, non-intentional chronic Nonischemic cardiomyopathy c hronic Presence of biventricular im plantable cardioverter-defibrillator (ICD) April, chronic Cancer of vulva acute Depression with anxiety bi consultant meliton Essential (primary) hypertension chronic Hypomagnesemia chronic Type 2 diabetes mellitus chr onic [facility] Work Phone: Evaluation note* Diagnosis Onset Date Resolution Status Cancer of vulva acute Depression with anxiety bi consultant meliton Essential (primary) hypertension chronic Type 2 diabetes mellitus chr onic Weight loss, non-intentional chronic Nonischemic cardiomyopathy c hronic Presence of biventricular im plantable cardioverter-defibrillator (ICD) April, chronic Cancer of vulva acute Depression with anxiety bi consultant meliton Essential (primary) hypertension chronic Hypomagnesemia chronic Type 2 diabetes mellitus chr onic Chronic systolic (congestive) heart failure chronic Nonischemic cardiomyopathy c hronic Presence of biventricular im plantable cardioverter-defibrillator (ICD) April, [facility] Work Phone: Evaluation note* Diagnosis Onset Date Resolution Status Chronic diarrhea chronic Depression with anxiety bi consultant meliton Essential (primary) hypertension chronic Type 2 diabetes mellitus chr onic Weight loss, non-intentional chronic Vertigo acute Depression with anxiety bi consultant meliton Essential (primary) hypertension chronic Type 2 diabetes mellitus chr onic Weight loss, non-intentional chronic [facility] Work Phone: Evaluation note* Diagnosis Onset Date Resolution Status Vertigo acute Depression with anxiety bi consultant meliton Essential (primary) hypertension chronic Type 2 diabetes mellitus chr onic Weight loss, non-intentional chronic Chronic systolic (congestive) heart failure chronic Nonischemic cardiomyopathy c hronic Presence of biventricular im plantable cardioverter-defibrillator (ICD) April, chronic Essential (primary) hypertension chronic Nonischemic cardiomyopathy c hronic Presence of biventricular im plantable cardioverter-defibrillator (ICD) April, chronic Cancer of vulva acute Well woman exam with routine gynecological exam acute [facility] Work Phone: Evaluation note* Diagnosis Onset Date Resolution Status Vertigo acute Depression with anxiety bi consultant meliton Essential (primary) hypertension chronic Type 2 [...] of vulva acute H/O vulvectomy 2021 acute [facility] Work Phone: Evaluation note* Diagnosis Onset Date Resolution Status Vertigo acute Depression with anxiety bi consultant meliton Essential (primary) hypertension chronic Type 2 [...] Cancer of vulva resolved Depression with anxiety bi consultant meliton Essential (primary) hypertension chronic Hyperlipidemia chronic Hypomagnesemia chronic Type 2 diabetes mellitus chr onic Cancer of vulva resolved [facility] Work Phone: Evaluation note* Diagnosis Malfunction of device- Primary Failure of pacemaker lead, initial encounter Failure of pacemaker lead, initial encounter Failure of pacemaker lead, initial encounter [facility] Diagnosis Malfunction of device- Primary Failure of pacemaker lead, initial encounter Failure of pacemaker lead, initial encounter Failure of pacemaker lead, initial encounter [facility] encounter [facility] Narrative No data available for this section [facility] Hospital Discharge instructions No data available for this section [facility] Progress note No data available for this section [facility] Reason for referral (narrative)No reason for referral information availableSt. Mary[facility] Work Phone: Reason for visit Narrative* Auth/Cert Specialty Diagnoses / Procedures Referred By Maite muller Referred To Contact Diagnoses Pulmonary emphysema, unspecified emphysema type Jose Akins MD [address] [place] [id number] [facility] [address] [place] [address] Referral ID Status Reason Start Date Expiration Date Visits Re quested Visits Authorized [id number] 1 1 [facility] Chief Complaint and Reason for Visit Chief Complaint 3 M FU 3 mos DIE FINISHER-D f/u Reason for Visit COPD (chronic obstru ctive pulmonary disease) Essential (primary) hypertension Weight loss, non-intentional Chronic systolic (congestive) heart failure Nonischemic cardiomyopathy Presence of biventricular implantable cardioverter-defibrillator (ICD) Chief Complaint 3 M FU 3 mos DIE FINISHER-D f/u 3 M FU LABWORK Reason for Visit COPD (chronic obstru ctive pulmonary disease) Essential (primary) hypertension Weight loss, non-intentional Chronic systolic (congestive) heart failure Nonischemic cardiomyopathy Presence of biventricular implantable cardioverter-defibrillator (ICD) Cancer of vulva Depression with anxiety Essential (primary) hypertension Type 2 diabetes mellitus Weight loss, non-intentional Chief Complaint 3 M FU LABWORK 3 mos DIE FINISHER-D f/u 3 M FU Reason for Visit Cancer of vulva Depression with anxiety Essential (primary) hypertension Type 2 diabetes mellitus Weight loss, non-intentional Nonischemic cardiomyopathy Presence of biventricular implantable cardioverter-defibrillator (ICD) Cancer of vulva Depression with anxiety Essential (primary) hypertension Hypomagnesemia Type 2 diabetes mellitus Chief Complaint 3 M FU LABWORK 3 mos DIE FINISHER-D f/u 3 M FU check leads due [...] BIOPSY, VULVER CANCER, PERINEUM 3 M FU DIE FINISHER-D f/u approaching [facility] Reason for Visit Vertigo [...] r-defibrillator) battery depletion July 20, 2024 8:03am Reason for Visit Admit Date Activities involving [...] r-defibrillator) battery depletion July 20, 2024 8:03am Tobacco abuse, in remission August 24 2 025 8:45am Chronic diarrhea August 24, 2024 8:45 am Essential (primary) hypertension August 242024 8:45am Generalized anxiety disorder August 24, 2024 8:45am Hyperlipidemia August 24, 2024 8:45 am Type 2 diabetes mellitus August 24, 2024 8:45am Chief Complaint Admit Date Pacemaker check July 20, 2024 8:03a m Pacer Check Remote July 20, 2024 9:00a m 3 m fu August 24, 2024 8:45 am 3 mos DIE FINISHER-D f/u Sees KR @ 9:30 October 252024 7:49am 9 M FU ICD f/u @ 9 October 25, 2024 7: 50am Reason for Visit Admit Date Chronic systolic (congestive) heart fail ure July 20, 2024 8:03am Nonischemic cardiomyopathy July 20 8:03am Presence of biventricular im plantable cardioverter-defibrillator (ICD) July 20, 2024 8:03am ICD (implantable cardioverte r-defibrillator) battery depletion July 20, 2024 8:03am Tobacco abuse, in remission August 24 025 8:45am Chronic diarrhea August 24, 2024 8:45 am Essential (primary) hypertension August 242024 8:45am Generalized anxiety disorder August 24, 2024 8:45am Hyperlipidemia August 24, 2024 8:45 am Type 2 diabetes mellitus August 24, 2024 8:45am Essential (primary) hypertension October 25, 2024 7:50am Nonischemic cardiomyopathy October 25, 2024 7:50am Presence of biventricular im plantable cardioverter-defibrillator (ICD) October 25, 2024 7:50am Reason for Visit Admit Date Chronic systolic (congestive) heart fail ure July 20, 2024 8:03am Nonischemic cardiomyopathy July 20 8:03am Presence of biventricular im plantable cardioverter-defibrillator (ICD) July 20, 2024 8:03am ICD (implantable cardioverte r-defibrillator) battery depletion July 20, 2024 8:03am Tobacco abuse, in remission [address], 2 025 8:45am Chronic diarrhea August 24, 2024 8:45 am Essential (primary) hypertension August 242024 8:45am Generalized anxiety disorder August 24, 2024 8:45am Hyperlipidemia August 24, 2024 8:45 am Type 2 diabetes mellitus August 24, 2024 8:45am Chronic systolic (congestive) heart fail ure October 25, 2024 7:49am Nonischemic cardiomyopathy October 25, 2024 7:49am ICD (implantable cardioverte r-defibrillator) battery depletion October 25, 2024 7:49am Essential (primary) hypertension October 25, 2024 7:50am Hyperlipidemia October 25, 2024 7: 50am Nonischemic cardiomyopathy October 25, 2024 7:50am Presence of biventricular im plantable cardioverter-defibrillator (ICD) October 25, 2024 7:50am Chief Complaint Admit Date Pacemaker check July 20, 2024 8:03a m Pacer Check Remote July 20, 2024 9:00a m 3 m fu August 24, 2024 8:45 am 3 mos DIE FINISHER-D f/u Sees KR @ 9:30 October 252024 7:49am 9 M FU ICD f/u @ 9 October 25, 2024 7: 50am Pacer Check Remote October 25, 2024 9: 00am Family History No Family History Records Found Relationship Condition Age at Onset Recorded Date/T tri father Cerebrovascular accident (CVA) Unknown Hypertension Unknown Diabetes mellitus Unknown Malignant neoplasm Unknown mother Diabetes mellitus Unknown Advance Directives No Advanced Directives Records Found Advance Directive Response Recorded Date/ Time Advance Directives No October 18, 2020 9:22am Living Will No October 18 9:22am Power of Biostatistics Director No October 18 9:22am Advance Directive Response Recorded Date/ Time Advance Directives No October 18, 2020 8:22am Living Will No October 18 8:22am Power of Biostatistics Director No October 18 8:22am Advance Directive Response Recorded Date/ Time Advance Directives No November 9:17am Living Will No November 25, 2022 9:17am Power of Biostatistics Director No November 9:17am Advance Directive Response Recorded Date/ Time Advance Directives No November 10:17am Living Will No November 25, 2022 10:17am Power of Biostatistics Director No November 10:17am Date Activated Date Inactivated Comments 03/10/2024 11:18 AM Date Activated Date Inactivated Comments 03/07/2024 3:55 PM 03/10/2024 11:18 AM Advance Directive Response Recorded Date/ Time Living Will No November 25, 2022 10:17am Do you have a Healthcare Power of Biostatistics Director? No November 25, 2022 10:17am Living Will No February 15 9:03am Do you have a Healthcare Power of Biostatistics Director? No February 16, 2024 9:03am Advance Directives No November 10:17am Advance Directive Response Recorded Date/ Time Advance Directives No November 10:17am Summary Purpose Reason for Referral Specialty Diagnoses / Procedures Referred By Contac t Referred To Contact Procedures PACEMAKER/ICD INTERROGATION Len Shin MD [address] [place] [address] Referral ID Status Reason Start Date Expiration Date V isits Requested Visits Authorized [id number] New Request 03/10/2024 04/04/2025 1 1 Specialty Diagnoses / Procedures Referred By Contac t Referred To Contact Procedures PLATELET MONITORING PER PROTOCOL Thai Miranda MD [address] [address] Referral ID Status Reason Start Date Expiration Date V isits Requested Visits Authorized [id number] New Request 03/07/2024 04/01/2025 1 1 Specialty Diagnoses / Procedures Referred By Contac t Referred To Contact Procedures DVT/VTE RISK ASSESSMENT Thai Miranda MD [address] [place] [address] Referral ID Status Reason Start Date Expiration Date V isits Requested Visits Authorized [id number] New Request 03/07/2024 04/01/2025 1 1 Additional [...] Member Role: Primary Care Physician Address: Address: [address] [place] [address] [place] Name: CHAR ALVARADO MD Position: P4 Oncology Provider Med Service: [facility] Infusion Therapy Member Role: Gynecologic Oncologist Address: Address: [address] [place] [address] [place] [address] Care Team Related Persons Name: JUAN LUIS RANDLE INFORMATION SOURCE (unrecogn ized section and content) DATE CREATED AUTHOR 03/22/2022 [facility] ([place]) DATE CREATED AUTHOR AUTHOR'S ORGANIZ ATION 03/28/2024 [facility] DATE CREATED AUTHOR AUTHOR'S ORGANIZ ATION 11/05/2024 [facility] Care Teams (unrecognized sec tion and content) Team Status: Active Member Role Status Dates Dr. Martin Evans MD Family Provider Active Dr. Martin Evans MD Primary Care Provider Active Team Status: Inactive Member Role Status Dates Dr. Martin Evans MD Primary Care Jaiden james, Attending Provider, Referring Provider Active Team Status: Inactive Member Role Status Dates Dr. Martin Evans MD Primary Care Provider, Refer ring Provider Active Emma Vargas DISH WASHER, DISH WASHER-C Attending Provider Active Team Status: Inactive Member [...] Primary Care Provider, Atten ding Provider Active Harness Cutter Relationship Specialty Start Date End Date Martin Evans MD [address] [phone] PCP - General Internal Medicine 01/28/24 Stewart Diane MD [address] [place] [phone] Cardiovascular Disease 02/03/24 Harness Cutter Relationship Specialty Start Date End Date Martin Evans MD [address] [phone] PCP - General Internal Medicine 01/28/24 Stewart Diane MD [address] [place] [phone] Cardiovascular Disease 02/03/24 Team Status: Active Member [...] Referring Provider Active Start: August 24, 2024 Team Status: Inactive Member Role Status Dates Dr. Martin Evans MD Primary Care Provider Active Start: August 24, 2024 End: August 24, 2024 Dr. Martin Evans MD Attending Provider Active Start: August 24, 2024 End: August 24, 2024 Dr. Martin Evans MD Referring Provider Active Start: August 24, 2024 End: August 24, 2024 Team Status: Active Member Role/Relationship Status Dates Dr. Martin Evans MD Primary Care Provider Active Team Status: Inactive Member Role/Relationship Status Dates Dr. Martin Evans MD Referring Provider Active Start: July 20, 2024 End: July 20, 2024 Dr. Stewart Diane MD Attending Provider Active S tart: July 20, 2024 End: July 20, 2024 Team Status: Inactive Member Role/Relationship Status Dates Dr. Martin Evans MD Primary Care Provider Active Start: July 20, 2024 End: July 20, 2024 Dr. Stewart Diane MD Attending Provider Active S tart: July 20, 2024 End: July 20, 2024 Team Status: Inactive Member Role/Relationship Status Dates Dr. Martin Evans MD Attending Provider Active Start: August 24, 2024 End: August 24, 2024 Dr. Martin Evans MD Referring Provider Active Start: August 24, 2024 End: August 24, 2024 Team Status: Inactive Member Role/Relationship Status Dates Dr. Martin Evans MD Primary Care Provider Active Start: August 24, 2024 End: August 24, 2024 Dr. Martin Evans MD Attending Provider Active Start: August 24, 2024 End: August 24, 2024 Dr. Martin Evans MD Referring Provider Active Start: August 24, 2024 End: August 24, 2024 Team Status: Active Member Role/Relationship Status Dates Dr. Martin Evans MD Primary Care Provider Active Start: October 25, 2024 Dr. Martin Evans MD Referring Provider Active Start: October 25, 2024 Aliyah Aguilar Attending Provider Active Start: 2024 Team Status: Inactive Member Role/Relationship Status Dates Dr. Martin Evans MD Primary Care Provider Active Start: October 25, 2024 End: October 25, 2024 Dr. Martin Evans MD Referring Provider Active Start: October 25, 2024 End: October 25, 2024 Emma Vargas NP, DISH WASHER-C Attending Provider Active Start: October 25, 2024 End: October 25, 2024 Team Status: Inactive Member Role/Relationship Status Dates Dr. Martin Evans MD Primary Care Provider Active Start: October 25, 2024 End: October 25, 2024 Dr. Martin Evans MD Referring Provider Active Start: October 25, 2024 End: October 25, 2024 Aliyah Aguilar Attending Provider Active Start: 2024 End: October 25, 2024 Team Status: Inactive Member Role/Relationship Status Dates Dr. Martin Evans MD Primary Care Provider Active Start: October 25, 2024 End: October 25, 2024 Dr. Stewart Diane MD Attending Provider Active S tart: October 25, 2024 End: October 25, 2024 Scheduled Active and Recently Administ ered Medications (unrecognized section and content) Medication Order 03/09/2024 03/10/2024 03/11/2024 Atorvastatin (LIPITOR) tablet 10 mg 10 mg, Oral, EVERY 24 HOURS, First dose on Thu03/08/24 at 1800, Until Discontinued 1700 (Given - Provider: Kang Moran, LARRY) 180 (Given - Provider: Nilda Barrios, LARRY) carveDILOL (COREG) tablet 12.5 mg 12.5 mg, Oral, EVERY 12 HOURS, First dose on Thu03/07/24 at 1800, Until Discontinued 0611 (Given - Provider: Dustin Boston RN)1700 (Given - Provider: Kang Moran RN) 0549 (Given - Provider: Danielle Richardson, RN)1801 (Given - Provider: Nilda Barrios, RN) 0630 [...] Boston RN)1430 (Held by provider - Provider: Jsoelyn Morelos MD - Reason: Other) 0600 (Automatically [...] 1900 2007 ($$New Bag$$ - Provider: Kayce Nobles RN)2008 [...] Therapy 0611 (Given - Provider: Dustin Boston, RN) 0549 (Given - Provider: Danielle Richardson, [...] Barrios, LARRY) 0640 (Given - Provider: Kayce Nboles, RN) alum/mag hydrox.-simethicone oral suspension 30 mL [...] 2 g, Intravenous, Administer over 3 Minutes, INLAYER TO PROCEDURE, 1 dose, Starting on Viktoriya 03/10/24 at 0626, Until Viktoriya 03/10/24 at 0949, Other 0946 (Given - Provider: Reagan Aoyn RN) fentaNYL (SUBLIMAZE) injection (CANCELED) Administer over 2 Minutes, NEEDED, Starting on Viktoriya 03/10/24 at 1011, Until Viktoriya 1/25 at 1208, Intra-op/Intra-Proc 1011 (Given - Provider: [...] Distress 1419 (Given - Provider: Thang Cooney RCP)2039 (Given - Provider: Artem Burch RCP) 2110 (Given - Provider: Justina Kidd RCP) Lidocaine [...] 1601, Anxiety 1701 (Given - Provider: Kang Moran RN) 1723 (Given - Provider: Nilda Barrios RN) [...] Barrios RN)1329 (See Alternative - Provider: Nilda Barrios, LARRY)1354 (See Alternative - Provider: Nilda Barrios, RN)1358 (See Alternative - Provider: Nilda Barrios, RN)1629 (See Alternative - Provider: Nilda Barrios, RN) Magnesium sulfate 4 g in sterile [...] 1,000 mg, Intravenous, Administer over 1 Hours, INLAYER TO PROCEDURE, 1 dose, Starting on Thu03/08/24 at 0927, Until Viktoriya 03/10/24 at 0926, Other, Preoperative antibiotic, Order should be timed for day of procedure. 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 Vancomycin is preferred agent for device implants, based on national, community and local ([facility]) MRSA rates. Extravasation Risk, Pre-Procedure(Cath) 0845 ($$New Bag$$ - Provider: Nilda Barrios RN)0926 (Stopped - Provider: Nilda Barrios RN) Linked [...] dose on Thu03/08/24 at 1800, Until Discontinued 1701 (Given - Provider: Kang Moran, RN) 180 [...] Richardson, LARRY) 0630 (Given - Provider: Kayce Nobles RN) furOSEmide (LASIX) tablet 40 mg 40 [...] 1900 2007 ($$New Bag$$ - Provider: Kayce Nobles RN)2008 (Rate/Dose Verify - Provider: Kayce Nobles RN)2054 (Stopped - Provider: Kayce Nobles RN)2057 (Rate/Dose Verify - Provider: Kayce Nobles, RN)2099 (Rate/Dose Verify - Provider: Kayce Nobles, LARRY) 0753 (Stopped - Provider: Ashlyn Brown RN) Magnesium sulfate 1 g in dextrose 5% 100 mL premix IVPB (COMPLETED)(Linked Group 1) 1 g, Intravenous, at 100 mL/hr, Administer over 60 Minutes, ONCE, 1 dose, On Thu03/10/24 at 2000 2110 ($$New Bag$$ - Provider: Kayce Nobles, [...] RN) 0640 (Given - Provider: Kayce Nobles, LARRY) [...] 2 g, Intravenous, Administer over 3 Minutes, INLAYER TO PROCEDURE, 1 dose, Starting on Viktoriya 03/10/24 at 0626, Until Viktoriya 03/10/24 at 0949, Other 0946 (Given - Provider: Reagan Ayon, LARRY) fentaNYL (SUBLIMAZE) injection (CANCELED) Administer over 2 Minutes, NEEDED, Starting on Viktoriya 03/10/24 at 1011, Until Viktoriya 03/10/24 at 1208, Intra-op/Intra-Proc 1011 (Given - Provider: Reagan Ayon, LARRY)1114 (Given - Provider: Reagan Ayon, LARRY) [...] Moran, LARRY) 1723 (Given - Provider: Nilda Barrios, LARRY) 0952 (Given - Provider: Ashlyn Brown, LARRY) [...] Barrios RN)1358 (See Alternative - Provider: Nilda Barrios, RN)1629 (See Alternative - Provider: Nilda Barrios, [...] (See Alternative - Provider: Nilda Barrios, RN) Magnesium sulfate 4 g in sterile [...] Nilda Barrios RN)1354 (Paused - Provider: Nilda Barrios RN)1358 (Restarted - Provider: Nilda Barrios RN)1629 (Stopped - Provider: Nilda Barrios RN) [...] 1,000 mg, Intravenous, Administer over 1 Hours, INLAYER TO PROCEDURE, 1 dose, Starting on Thu03/08/24 at 0927, Until Thu03/10/24 at 0926, Other, Preoperative antibiotic, Order should be timed for day of procedure. 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 Vancomycin is preferred agent for device implants, based on national, community and local ([facility]) MRSA rates. Extravasation Risk, Pre-Procedure(Cath) 0845 ($$New Bag$$ - Provider: Nilda Barrios RN)0926 (Stopped - Provider: Nilda Barrios, LARRY) Linked Groups Order Group 1: Magnesium sulfate [...] BE BASED ON THE PRIMARY CLINICAL RECORDS. [employer] [facility]. provides no warranty or guarantee of the accuracy or completeness of information in this document.
[2024-11-05 08:50] VITALS: BP 95/59; PULSE 65; RESP 22; TEMP 36.4; O2SAT 96
[2024-11-05 09:54] VITALS: BP 111/65; PULSE 80; RESP 18; TEMP 36.6; O2SAT 100
[2024-11-05 10:36] VITALS: BP 118/68; PULSE 78; RESP 14; TEMP 36.6; O2SAT 99
== END 2024-11-05 11:10 | disposition home or self-care (01) ==
PROVIDERS: Emergency Provider Emergency Medicine; PCP Internal Medicine; Visit Provider Emergency Medicine
DX: U07.1 COVID-19 (principal); I50.22 Chronic systolic (congestive) heart failure; I11.0 Hypertensive heart disease with heart failure; J44.1 Chronic obstructive pulmonary disease with (acute) exacerbation; E11.9 Type 2 diabetes mellitus without complications; E78.5 Hyperlipidemia, unspecified; R06.02 Shortness of breath; Z95.810 Presence of automatic (implantable) cardiac defibrillator; Z85.89 Personal history of malignant neoplasm of other organs and systems; K21.9 Gastro-esophageal reflux disease without esophagitis; Z79.899 Other long term (current) drug therapy; F41.9 Anxiety disorder, unspecified; Z90.710 Acquired absence of both cervix and uterus; F17.200 Nicotine dependence, unspecified, uncomplicated; Z90.49 Acquired absence of other specified parts of digestive tract
CPT/HCPCS: 71046; 80048; 85025; 87631; 93005; 94640; 96361; 96374; 99285; A4216